=== PATIENT | male | born 1945 | race Caucasian/White ===

== ENCOUNTER 2018-06-17 15:17 | Inpatient (IN) ==
--- NOTE | 2018-06-17 15:40 | Emergency Department Note ---
Disposition Clinical Impression: Cellulitis Qualifiers: Site of cellulitis: extremity Site of cellulitis of extremity: upper extremity Laterality: left Qualified Code(s): L03.114 - Cellulitis of left upper limb Disposition: Admitted As Inpatient Condition: Fair Time of Disposition: 18:32 General Adult HPI - General Stated complaint: cellulitis in left arm Time Seen by Provider: 06/17/18 15:26 Nursing Notes Reviewed: Yes Vital Signs Reviewed: Yes - History of Present Illness HPI Narrative: Patient was discharged from the hospital about 10 days ago and did have an IV in his left arm and did scrape his left forearm several days ago and had some clear fluid coming from the area but since yesterday he has had swelling or redness and warmth to left forearm with a moderate amount of pain and he does have swelling to the forearm as well as to the hand. . Symptoms began gradually and are constant. No fevers or vomiting. No chest pain or shortness of breath. Social history: No smoking - Related Data Home Medications Medication Instructions Recorded Confirmed Albuterol Neb [Proventil Neb] 2.5 mg IH Q6HR 05/27/18 05/27/18 Allopurinol [Zyloprim 100 MG] 100 mg PO DAILY 05/27/18 05/27/18 Bumetanide [Bumex] 1 mg PO TID 05/27/18 05/27/18 Carvedilol [Coreg] 25 mg PO BID 05/27/18 05/27/18 Colchicine [Colcrys] 0.6 mg PO DAILY PRN 05/27/18 05/27/18 Docusate [Colace] 200 mg PO DAILY 05/27/18 05/27/18 Ferrous Sulfate [Iron] 325 mg PO DAILY 05/27/18 05/27/18 Pravastatin Sodium [Pravachol] 80 mg PO DAILY 05/27/18 05/27/18 metOLazone [Zaroxolyn] 5 mg PO DAILY 05/27/18 05/27/18 Previous Rx's Medication Instructions Recorded Aspirin 81 mg PO DAILY 30 Days #30 tab.chew 06/03/18 Spironolactone [Aldactone] 50 mg PO DAILY 30 Days #30 tablet 06/03/18 predniSONE [PredniSONE] See Taper PO DAILY 28 Days #70 06/03/18 tablet Allergies Allergy/AdvReac Type Severity Reaction Status Date / Time meperidine [From Demerol] Allergy Hives Verified 05/25/18 12:28 Review of Systems: Constitutional: No fever Vision: No blurred vision ENT: No rhinorrhea Respiratory: No cough Allergic: No allergies : No blood in urine GI: No blood in stool Hematologic: No bruising Dermatologic: No skin rash Musculoskeletal: + pain in the extremities Neuro: No numbness of the extremities Past Medical History - Past Medical History Medical history: Reports: atrial fibrillation, CHF, coronary artery disease, renal disease Surgical history: Reports: coronary bypass (CABG) Psychiatric history: Reports: no psych history - Social History Smoking Status: Former smoker Smokeless Tobacco Status: No Alcohol use: Reports: none Drug use: Reports: none Physical Exam CONSTITUTIONAL: Alert and oriented X3, well-nourished, well appearing, in no apparent distress HEAD: Normocephalic; atraumatic. EYES: PERRL, no scleral icterus. NOSE: The nose is normal in appearance without rhinorrhea RESP: Normal chest excursion with respiration; breath sounds clear and equal bilaterally; no wheezes, rhonchi, or rales CARD: Regular rhythm, without murmurs, rub or gallop ABD: Non-distended; non-tender, soft,without rigidity, rebound or guarding SKIN: Normal for age and race; warm and dry; no apparent lesions Extremities: Left forearm and hand does have moderate to severe edema and there is erythema and warmth over the forearm area but no fluctuant areas. No ecchym osis, no vesicles. Radial pulse is 2+ on the left. Does not have swelling of the right upper extremity. Course Vital Signs Temperature 98.9 F 06/17/18 16:42 Pulse Rate 76 06/17/18 16:42 Respiratory Rate 14 06/17/18 16:42 Blood Pressure 138/94 06/17/18 16:42 O2 Sat by Pulse Oximetry 97 06/17/18 16:42 Temperature 98.7 F 06/17/18 21:01 Pulse Rate 81 06/17/18 21:01 Respiratory Rate 16 06/17/18 21:01 Blood Pressure 131/75 06/17/18 21:01 O2 Sat by Pulse Oximetry 94 06/17/18 21:01 Oxygen Delivery Oxygen Delivery Room Air Medical Decision Making - MDM Narrative Medical decision making narrative: The patient is bright and alert and nontoxic in appearance. Labs including lactate level and blood cultures are ordered. IV vancomycin will be started. The patient will be admitted to the hospital. Likely cellulitis secondary to t he fact that he had a scrape on the arm or from his IV from last week. Vancomycin started to ensure coverage of MRSA infection 1540 I did review the patient's labs showing significant leukocytosis. The patient has a moderate amount of pain but does not have severe pain. Is not pain out of proportion. I do not suspect necrotizing soft tissue infection at this time. There is no ecchymosis or necrosis or crepitus or bullae. The hospitalist is paged. Patient is artery been started on vancomycin IV. 1637 I did speak with the hospitalist accepts the patient for admission. The patient does have erythema and edema and likely has an infection. I will order a Doppler study to ensure the patient does not have a deep vein thrombosis but especially with the patient's warmth and pain and elevated white blood cell count infection is most likely. I do not suspect a necrotizing soft tissue infection as this is not pain out of proportion, and there are no other signs as described above of necrotizing soft tissue infection. The patient is not confused. 1830 I did review the ECG showing afib with rate of [address] changes 1836 Patient's venous Doppler left upper extremity did come back negative for DVT - Medical Records Medical records reviewed: Yes I reviewed the patient's medical records. - Lab Data Lab results reviewed: Yes I reviewed the patient's lab results. Result diagrams: 06/17/18 15:56 06/17/18 15:56 Lab Results 06/17/18 06/17/18 06/17/18 Range/Units 15:56 15:56 15:56 WBC 21.3 H (4.3-11.1) K/mcL RBC 3.81 L (4.19-5.50) M/mcL Hgb 11.7 L (12.9-16.9) g/dL Hct 35.0 L (37.5-50.1) % MCV 91.9 (83.0-100.0) fL MCH 30.7 (28.0-33.3) pg MCHC 33.4 (31.6-35.5) g/dL RDW 16.4 H (11.5-14.5) % Plt Count 193 (140-400) K/mcL MPV 10.2 (9.4-12.4) fL Sodium 133 L (136-145) mEq/L Potassium 3.7 (3.5-5.1) mEq/L Chloride 102 (98-107) mEq/L Carbon Dioxide 23 (23-29) mEq/L BUN 80 H (8-23) mg/dL Creatinine 1.88 H (0.70-1.30) mg/dL Est GFR ( Amer) 43 L (> 60) Est GFR (Non-Af Amer) 35 L (> 60) BUN/Creatinine Ratio 43 H (6-26) Glucose 105 (70-105) mg/dL Calculated Osmolality 300 (280-300) Lactic Acid 1.2 (0.5-2.2) mmol/L Calcium 7.4 L (8.6-10.3) mg/dL
[2018-06-17 16:14] LABS: Hemoglobin 11.7 g/dL (12.9-16.9); Mean Corpuscular HGB Conc 33.4 g/dL (31.6-35.5); Mean Corpuscular Hemoglobin 30.7 pg (28.0-33.3); Mean Corpuscular Volume 91.9 fL (83.0-100.0); Mean Platelet Volume 10.2 fL (9.4-12.4); Platelet Count 193 K/mcL (140-400); Red Blood Count 3.81 M/mcL (4.19-5.50); Red Cell Distribution Width 16.4 % (11.5-14.5)
[2018-06-17 16:33] LABS: Calcium 7.4 mg/dL (8.6-10.3); Potassium 3.7 mEq/L (3.5-5.1)
[2018-06-17] MEDS ORDERED: *HR* HYDROcodone/Acet 5/325 mg TABLET PO PRN (18:37)
[2018-06-17] MEDS ORDERED: Naloxone 0.4 MG/ML INJ IVP PRN (18:37)
[2018-06-17] MEDS ORDERED: Ondansetron ODT 4 MG TAB.RAPDIS SL PRN (18:37)
[2018-06-17] MEDS ORDERED: Acetaminophen 325 MG TABLET PO PRN (18:37)
[2018-06-17] MEDS ORDERED: Colchicine 0.6 MG TABLET PO PRN (18:42)
--- NOTE | 2018-06-17 18:51 | Internal Med History&Physical ---
Date of Encounter: 06/17/18 Time of Encounter: 18:44 Internal Medicine - H&P: HPI Chief complaint: Left forearm cellulitis Admitted From: Emergency Dept Plans for Post Hospital Care: Home History of present illness: Mr. Dumont is a 72 year old male with past medical history of CABG 01/2018, chronic systolic CHF, chronic atrial fibrillation, CKD stage III, COPD , HTN, HLD and CAD who had diffuse b/l UE and LE edema with concerning for Nephrotic syndrome for which he was placed on Prednisone 10mg, was recently admitted here on 06/06/18 now he went to [facility] with worsening Left UE swelling , tenderness with erythema. He was sent to our hospital for further care. His WBC significantly elevated @ 21.3, he is afebrile. He was given abx at [facility], and pt states his LUE swelling little better now. He also c/o worsening swelling / edema in both LE too. Past Med Surg Social Fam HX - Past Medical History Medical history: atrial fibrillation, CHF, coronary artery disease, renal disease Additional medical history: gout Psychiatric history: no psych history - Past Surgical History Surgical History: coronary bypass (CABG) Additional surgical history: bowel resection - Social History Smoking Status: Former smoker Smokeless Tobacco Status: No Alcohol use: none Drug use: none - Family History Father Hx Family Cardiac Disorders: Yes ([place]) Grandfather Hx Family Cardiac Disorders: Yes Internal Medicine - H&P: Meds Albuterol Neb [Proventil Neb] 2.5 mg IH Q6HR 05/27/18 [History] Allopurinol [Zyloprim 100 MG] 100 mg PO DAILY 05/27/18 [History] Bumetanide [Bumex] 1 mg PO TID 05/27/18 [History] Carvedilol [Coreg] 25 mg PO BID 05/27/18 [History] Colchicine [Colcrys] 0.6 mg PO DAILY PRN 05/27/18 [History] Docusate [Colace] 200 mg PO DAILY 05/27/18 [History] Ferrous Sulfate [Iron] 325 mg PO DAILY 05/27/18 [History] Pravastatin Sodium [Pravachol] 80 mg PO DAILY 05/27/18 [History] metOLazone [Zaroxolyn] 5 mg PO DAILY 05/27/18 [History] Aspirin 81 mg PO DAILY 30 Days #30 tab.chew 06/03/18 [Rx] Spironolactone [Aldactone] 50 mg PO DAILY 30 Days #30 tablet 06/03/18 [Rx] predniSONE [PredniSONE] See Taper PO DAILY 28 Days #70 tablet 06/03/18 [Rx] Allergy/AdvReac Type Severity Reaction Status Date / Time meperidine [From Demerol] Allergy Hives Verified 05/25/18 12:28 All Systems PM: A 10-system review of systems was performed and is negative for pertinent findings except as documented above in the HPI. Review of systems: All the systems are reviewed everything is benign except the systems and symptoms I mentioned in the history of present illness - Constitutional Vitals: Temp Pulse Resp BP Pulse Ox 98.9 F 70 14 123/73 97 06/17/18 17:21 06/17/18 18:18 06/17/18 18:18 06/17/18 18:18 06/17/18 18:18 General appearance: Present: cooperative, A&O X 3, no acute distress, answers questions appropriately Exam: See below - Head Head exam: Present: atraumatic, normal inspection - Neck Neck exam general surgery: Present: supple - Respiratory Respiratory exam: Present: decreased breath sounds. Absent: rales, respiratory distress, rhonchi, wheezes - Cardiovascular Cardiovascular exam: Present: irregular rhythm, +S1, +S2. Absent: tachycardia - GI/Abdominal GI/Abdominal exam: Present: normal bowel sounds, soft. Absent: rebound, rigid, tenderness - Extremities Exam Extremities exam: Present: pedal edema (2+). Absent: calf tenderness, joint swelling, tenderness - Expanded Upper Extremities Exam Forearm wrist exam: Present: erythema, swelling, tenderness. Absent: abrasion, crepitus, laceration - Expanded Lower Extremities Exam Lower Leg exam: Present: swelling. Absent: erythema, tenderness - Back Exam Back exam: Absent: CVA tenderness (L), CVA tenderness (R) - Neurological Exam Neurological exam: Present: alert, oriented X3 - Psychiatric Psychiatric exam: Present: normal affect, normal mood - Skin Skin exam: Absent: rash Internal Med - H&P Results - Labs CBC & Chem 7: 06/17/18 15:56 06/17/18 15:56 Labs: Short CBC 06/17/18 Range/Units 15:56 WBC 21.3 H (4.3-11.1) K/mcL Hgb 11.7 L (12.9-16.9) g/dL Hct 35.0 L (37.5-50.1) % Plt Count 193 (140-400) K/mcL BMP 06/17/18 15:56 Sodium 133 L Potassium 3.7 Chloride 102 Carbon Dioxide 23 BUN 80 H Creatinine 1.88 H Glucose 105 Calcium 7.4 L - Assessment and plan (1) Left arm cellulitis Current Visit: Yes Status: Acute Assessment and plan: Admit the pt into Tele Need to r/o DVT ER just ordered venous doppler.. will f/u on it started on empirical abx Vancomycin for now cont close monitoring (2) Anasarca Current Visit: No Status: Acute Assessment and plan: He still has diffuse anasarca during last hospitalization there was a concern for nephrotic syndrome I did talk to Nephro Dr. Briones, who reviewed renal biopsy report - concerning for FSGS Nephrotic syndrome cont Prednisone 10mg for now IV Lasix 40mg BID + Metolazone + Aldactone appreciate nephrology recommendations (3) Chronic systolic (congestive) heart failure Current Visit: Yes Status: Acute Assessment and plan: Not in exacerbation resumed all home meds (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 Current Visit: Yes Status: Acute (5) Nephrotic syndrome Current Visit: No Status: Acute (6) Hyperlipidemia Current Visit: No Status: Acute Assessment and plan: Resumed home medications Qualifiers: Hyperlipidemia type: mixed hyperlipidemia Qualified Code(s): E78.2 - Mixed hyperlipidemia (7) Atrial fibrillation Current Visit: No Status: Chronic Assessment and plan: Rate controlled with Coreg Not on anti coag due to recent hemothorax Qualifiers: Atrial fibrillation type: chronic Qualified Code(s): I48.2 - Chronic atrial fibrillation (8) CAD (coronary artery disease) Current Visit: No Status: Chronic Assessment and plan: Resumed all home medications Qualifiers: Coronary Disease-Associated Artery/Lesion type: [place] artery [place] vs. transplanted heart: [place] heart Associated angina: without angina Qualified Code(s): I25.10 - Atherosclerotic heart disease of [place] coronary artery without angina pectoris (9) CKD (chronic kidney disease), stage III Current Visit: No Status: Chronic Assessment and plan: stable creatinine at baseline - Time Spent With Patient Total time spent is greater than 50% in coordination of care (as documented) at patient's floor/unit and/or counseling patient:
[2018-06-17] MEDS: Albuterol 2.5 MG/3 ML NEBULIZER IH SCH (21:50)
[2018-06-17] MEDS: Furosemide 40 MG/4 ML VIAL IVP SCH (22:00)
[2018-06-17] MEDS: *HR* Heparin 5,000 UNIT/ML VIAL SQ SCH (22:10)
[2018-06-18] MEDS: Albuterol 2.5 MG/3 ML NEBULIZER IH SCH ×4 (04:53→21:47)
[2018-06-18 07:12] LABS: Basophils % 0.1 %; Eosinophils # 0.1 K/mcL (0.0-0.6); Eosinophils % 0.9 %; Hematocrit 32.5 % (37.5-50.1); Hemoglobin 10.9 g/dL (12.9-16.9); Immature Granulocytes % 0.4 % (0-4); Lymphocytes % 7.5 %; Mean Corpuscular HGB Conc 33.5 g/dL (31.6-35.5); Mean Corpuscular Hemoglobin 30.3 pg (28.0-33.3); Mean Corpuscular Volume 90.3 fL (83.0-100.0); Monocytes # 0.6 K/mcL (0.0-1.3); Monocytes % 4.6 %; Platelet Count 180 K/mcL (140-400); Red Cell Distribution Width 16.3 % (11.5-14.5); Segmented Neutrophils % 86.5 %
[2018-06-18 07:31] LABS: Calcium 7.1 mg/dL (8.6-10.3); Magnesium 2.6 mg/dL (1.6-2.6); Potassium 3.5 mEq/L (3.5-5.1)
[2018-06-18] MEDS: Aspirin 81 MG TAB.CHEW PO SCH (08:49)
[2018-06-18] MEDS: Furosemide 40 MG/4 ML VIAL IVP SCH ×2 (08:49→16:17)
[2018-06-18] MEDS: *HR* Heparin 5,000 UNIT/ML VIAL SQ SCH ×3 (08:49→22:49)
[2018-06-18] MEDS: predniSONE 10 MG TABLET PO SCH (08:49)
[2018-06-18] MEDS: metOLazone 5 MG TABLET PO SCH (08:50)
--- NOTE | 2018-06-18 16:09 | Internal Med Progress Note ---
<Susie Rahmanty - Last Filed: 06/18/18 16:06> Hospitalist Progress Note - Encounter Date of Encounter: 06/18/18 Time of Encounter: 16:07 - Subjective Interval History: Patient reports that the erythema in his arm is improved, but the additional swelling is unchanged. - Exam Vitals: Temp Pulse Resp BP Pulse Ox 97.9 F 76 18 104/83 95 06/18/18 15:40 06/18/18 15:40 06/18/18 15:40 06/18/18 15:40 06/18/18 15:40 Exam: General: alert, NAD HEENT: normocephalic, atraumatic, PEERLA EOMI, neck supple, trachea midline, external ears normal, MMM Cardiac: RRR, no murmurs Respiratory: CTAB Abdomen: soft, nontender, BS present Extremities: anasarca - 2-3+ edema everywhere, left upper extremity with increased swelling 3+ swelling from fingers to distal 1/3 of arm - mild erythema of this location also Neuro: A&Ox3 Psych: normal affect - Assessment and Plan (1) Left arm cellulitis Current Visit: Yes Status: Acute Assessment and Plan: improving currently on pulse dosed vancomycin vancomycin trough ordered for 1700 today - pharmacy to dose vancomycin based on results (2) Anasarca Current Visit: No Status: Acute Assessment and Plan: 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 nephrology consulted, appreciate recommendations continue prednisone 10 mg daily, IV lasix 40 mg BID, metolazone 5 mg daily, and aldactone 50 mg daily (3) FSGS (focal segmental glomerulosclerosis) with nephrosis Current Visit: Yes Status: Acute (4) Nephrotic syndrome Current Visit: Yes Status: Acute (5) CKD (chronic kidney disease), stage III Current Visit: No Status: Chronic Assessment and Plan: chronic, stable (6) Chronic systolic (congestive) heart failure Current Visit: Yes Status: Acute Assessment and Plan: not in exacerbation continue home meds (7) CAD (coronary artery disease) Current Visit: No Status: Chronic Assessment and Plan: continue home meds (8) Atrial fibrillation Current Visit: No Status: Chronic Assessment and Plan: rate controlled not on anticoagulation due to recent hemothorax (9) Hyperlipidemia Current Visit: No Status: Acute Assessment and Plan: continue home meds DVT Prophylaxis: heparin SQ - Time Spent with Patient Total time spent is greater than 50% in coordination of care (as documented) at patient's floor/unit and/or counseling patient: Internal Medicine: Result - Labs CBC & Chem 7: 06/18/18 06:26 06/18/18 06:26 Labs: Short CBC 06/17/18 06/18/18 Range/Units 15:56 06:26 WBC 21.3 H 13.8 H (4.3-11.1) K/mcL Hgb 11.7 L 10.9 L (12.9-16.9) g/dL Hct 35.0 L 32.5 L (37.5-50.1) % Plt Count 193 180 (140-400) K/mcL Neutrophils # 12.0 H (1.6-8.9) K/mcL BMP 06/17/18 06/18/18 15:56 06:26 Sodium 133 L 137 Potassium 3.7 3.5 Chloride 102 103 Carbon Dioxide 23 28 BUN 80 H 77 H Creatinine 1.88 H 1.88 H Glucose 105 93 Calcium 7.4 L 7.1 L Consult Discharge Plan - Plan [facility]errals: [facility] [Primary Care Provider[facility] - <Joel Murrieta - Last Filed: 06/18/18 19:43> Hospitalist Progress Note - Encounter Date of Encounter: 06/18/18 - Exam Vitals: Temp Pulse Resp BP Pulse Ox 98.3 F 74 16 137/71 94 06/18/18 18:16 06/18/18 18:16 06/18/18 18:16 06/18/18 18:16 06/18/18 18:16 - Assessment and Plan (1) Atrial fibrillation Current Visit: No Status: Chronic (2) CAD (coronary artery disease) Current Visit: No Status: Chronic (3) Anasarca Current Visit: No Status: Acute (4) Hyperlipidemia Current Visit: No Status: Acute (5) Nephrotic syndrome Current Visit: Yes Status: Acute (6) CKD (chronic kidney disease), stage III Current Visit: No Status: Chronic (7) Left arm cellulitis Current Visit: Yes Status: Acute (8) Chronic systolic (congestive) heart failure Current Visit: Yes Status: Acute (9) FSGS (focal segmental glomerulosclerosis) with nephrosis Current Visit: Yes Status: Acute - Time Spent with Patient Total time spent is greater than 50% in coordination of care (as documented) at patient's floor/unit and/or counseling patient: Internal Medicine: Result - Labs CBC & Chem 7: 06/18/18 06:26 06/18/18 06:26 Labs: Short CBC 06/18/18 Range/Units 06:26 WBC 13.8 H (4.3-11.1) K/mcL Hgb 10.9 L (12.9-16.9) g/dL Hct 32.5 L (37.5-50.1) % Plt Count 180 (140-400) K/mcL Neutrophils # 12.0 H (1.6-8.9) K/mcL BMP 06/18/18 06:26 Sodium 137 Potassium 3.5 Chloride 103 Carbon Dioxide 28 BUN 77 H Creatinine 1.88 H Glucose 93 Calcium 7.1 L - Attending Attestation I examined this patient and my medical decision-making was reviewed with the Resident Physician on 06/18/18. I agree with the documented findings, disposition and treatment plan as described except to the extent set forth below. Mr Dumont is currently admitted for cellulitis of LUE. He remains moderate to high risk due to potential for worsening clinical status. Mr Dumont feels OK. His arm is still red but maybe a little better. Still with a lot of edema. No fever or chills. No CP or SOB currently. Exam alert Comfortable lying flat Mucus membranes dry Heart reg and not tachy No wheeze anasarca present Abd soft and non tender LUE with erythema throughout. I/P 1. Cellulitis LUE - on IV Vancomycin 2. Anasarca 3. Nephrotic syndrome Further diagnoses and plan as above. <Susie Rahman - Last Filed: 06/18/18 16:06> (7) CAD (coronary artery disease) Qualifiers: Coronary Disease-Associated Artery/Lesion type: [place] artery [place] vs. transplanted heart: [place] heart Associated angina: without angina Qualified Code(s): I25.10 - Atherosclerotic heart disease of [place] coronary artery without angina pectoris (8) Atrial fibrillation Qualifiers: Atrial fibrillation type: chronic Qualified Code(s): I48.2 - Chronic atrial fibrillation (9) Hyperlipidemia Qualifiers: Hyperlipidemia type: mixed hyperlipidemia Qualified Code(s): E78.2 - Mixed hyperlipidemia <Joel Murrieta - Last Filed: 06/18/18 19:43> (1) Atrial fibrillation Qualifiers: Atrial fibrillation type: chronic Qualified Code(s): I48.2 - Chronic atrial fibrillation (2) CAD (coronary artery disease) Qualifiers: Coronary Disease-Associated Artery/Lesion type: [place] artery [place] vs. transplanted heart: [place] heart Associated angina: without angina Qualified Code(s): I25.10 - Atherosclerotic heart disease of [place] coronary artery without angina pectoris (4) Hyperlipidemia Qualifiers: Hyperlipidemia type: mixed hyperlipidemia Qualified Code(s): E78.2 - Mixed hyperlipidemia
--- NOTE | 2018-06-18 17:05 | Nephrology Consult Note ---
Date of Encounter: 06/18/18 Time of Encounter: 15:00 Assessment and Plan (1) Chronic systolic (congestive) heart failure Current Visit: Yes Status: Acute Strict I/Os Fluid restriction Diuretics as discussed below (2) FSGS (focal segmental glomerulosclerosis) with nephrosis Current Visit: Yes Status: Acute Scr imroved since last hospital stay at 1.88, GFR 35 Still not clear etiology of secondary FSGS ie malignancy, perhaps more imaging like PET scan to be done. Discussed with Dr Murrieta Continue low dose prednisone for now Continue iv lasix, metalozone and aldactone for now Will recheck urine for proteinuria (3) Left arm cellulitis Current Visit: Yes Status: Acute Caeful use of vanco, a nephrotoxins advised if this pt Vanco by levels only (4) Anasarca Current Visit: No Status: Acute (5) Lung nodule Current Visit: No Status: Chronic (6) CKD (chronic kidney disease), stage III Current Visit: No Status: Chronic History of Present Illness - Reason for Consult Consult date: 06/18/18 Acute Kidney Injury, Chronic Kidney Disease, glomerulonephritis Requesting physician: Donald Ball - History of Present Illness 72 y o male with PMH of stage 3 CKD, HTN, CAD s/p CABG 01/2018 with subsequent development of anasarca initially treated as CHF exacerbation with multiple diuretics eventually requiring hospital stay with 16gram proteinuria noted with renal biopsy showing FSGS likely secondary to unknown malignancy. During that stay, RUL lung mass noted with biopsy showing benign bronchial mucosa with reactive cells, followup with pulm pending. [facility] and generalized edema though improved from previous still very significant in both upper and lower extremities. Pt seen and examined feeling better and responding to iv lasix with more UOP overnight per pt. Pt remains on prednsione taper from last hospital stay Past Med Surg Social Fam HX - Past Medical History Medical history: atrial fibrillation, CHF, coronary artery disease, renal disease Additional medical history: gout Psychiatric history: no psych history - Past Surgical History Surgical History: coronary bypass (CABG), herniorrhaphy Additional surgical history: bowel resection - Social History Smoking Status: Former smoker Smokeless Tobacco Status: No Alcohol use: none Drug use: none - Family History Father Hx Family Cardiac Disorders: Yes ([place]) Grandfather Hx Family Cardiac Disorders: Yes Medications and Allergies Albuterol Neb [Proventil Neb] 2.5 mg IH Q6HR 05/27/18 [History] Allopurinol [Zyloprim 100 MG] 100 mg PO DAILY 05/27/18 [History] Bumetanide [Bumex] 1 mg PO TID 05/27/18 [History] Carvedilol [Coreg] 25 mg PO BID 05/27/18 [History] Colchicine [Colcrys] 0.6 mg PO DAILY PRN 05/27/18 [History] Docusate [Colace] 200 mg PO DAILY 05/27/18 [History] Ferrous Sulfate [Iron] 325 mg PO DAILY 05/27/18 [History] Pravastatin Sodium [Pravachol] 80 mg PO HS 05/27/18 [History] metOLazone [Zaroxolyn] 5 mg PO DAILY 05/27/18 [History] Aspirin 81 mg PO DAILY 30 Days #30 tab.chew 06/03/18 [Rx] Spironolactone [Aldactone] 50 mg PO DAILY 30 Days #30 tablet 06/03/18 [Rx] predniSONE [PredniSONE] See Taper PO DAILY 28 Days #70 tablet 06/03/18 [Rx] Digoxin [Lanoxin] 0.125 mg PO QOD 06/17/18 [History] GlipiZIDE [Glipizide Xl] 2.5 mg PO DAILY 06/17/18 [History] Allergy/AdvReac Type Severity Reaction Status Date / Time meperidine [From Demerol] Allergy Hives Verified 05/25/18 12:28 Exam - Vital Signs Vital signs: Initial Vital Signs Temp Pulse Resp BP Pulse Ox 98.9 F 76 14 138/94 97 06/17/18 16:42 06/17/18 16:42 06/17/18 16:42 06/17/18 16:42 06/17/18 16:42 Vital Signs - Last 8 Hours Temp Pulse Resp BP Pulse Ox 06/18/18 15:40 97.9 F 76 18 104/83 95 06/18/18 15:38 19 96 06/18/18 11:20 98.3 F 65 19 107/73 96 06/18/18 09:45 16 92 Intake and Output 06/18/18 06/18/18 06/18/18 07:59 15:59 23:59 Intake Total 660 / 660 Output Total 1050 / 1050 Balance -390 / -390 Intake: Oral 660 / 660 Output: Urine 1050 / 1050 Other: Meal Lunch Percent of Meal Consumed 95% Results - Lab Results 06/18/18 06:26 06/18/18 06:26 Most recent lab results Calcium 7.1 mg/dL (8.6-10.3) L 06/18/18 06:26 Magnesium 2.6 mg/dL (1.6-2.6) 06/18/18 06:26 Consult Discharge Plan - Plan [facility]errals: [facility] [Primary Care Provider] -
[2018-06-18 20:19] LABS: Bilirubin,Urine Negative (Negative); Blood,Urine Large (Negative); Clarity,Urine Clear (Clear); Color,Urine Yellow (Yellow); Glucose,Urine (UA) 250 mg/dL (Normal); Ketones,Urine Negative (Negative); Leukocyte Esterase,Urine Negative (Negative); Nitrite,Urine Negative (Negative); Protein,Urine >=300 mg/dL (Neg-Trace); Specific Gravity,Urine 1.009 (1.010-1.025); Urobilinogen,Urine Normal (Normal)
[2018-06-18 20:21] LABS: Bacteria,Urine None Seen per hpf (None-Few); Hyaline Casts,Urine None Seen per lpf (None-Few); RBC,Urine 50-100 per hpf (0-3); Squamous Epithelial Cell,Urine Many per lpf (None-Few)
[2018-06-19] MEDS: Albuterol 2.5 MG/3 ML NEBULIZER IH SCH ×4 (03:33→22:56)
[2018-06-19 07:22] LABS: Basophils % 0.2 %; Eosinophils # 0.3 K/mcL (0.0-0.6); Hematocrit 34.4 % (37.5-50.1); Hemoglobin 11.5 g/dL (12.9-16.9); Immature Granulocytes % 0.5 % (0-4); Lymphocytes # 1.4 K/mcL (0.6-4.6); Lymphocytes % 11.1 %; Mean Corpuscular HGB Conc 33.4 g/dL (31.6-35.5); Mean Corpuscular Hemoglobin 30.6 pg (28.0-33.3); Mean Corpuscular Volume 91.5 fL (83.0-100.0); Mean Platelet Volume 10.2 fL (9.4-12.4); Monocytes # 0.7 K/mcL (0.0-1.3); Monocytes % 5.5 %; Neutrophils # 10.3 K/mcL (1.6-8.9); Platelet Count 211 K/mcL (140-400); Red Blood Count 3.76 M/mcL (4.19-5.50); Red Cell Distribution Width 16.3 % (11.5-14.5); Segmented Neutrophils % 80.7 %
[2018-06-19 07:45] LABS: Calcium 7.4 mg/dL (8.6-10.3); Potassium 3.4 mEq/L (3.5-5.1)
[2018-06-19] MEDS: *HR* Heparin 5,000 UNIT/ML VIAL SQ SCH ×3 (08:42→23:14)
[2018-06-19] MEDS: Furosemide 40 MG/4 ML VIAL IVP SCH ×2 (08:43→17:12)
[2018-06-19] MEDS: Aspirin 81 MG TAB.CHEW PO SCH (08:43)
[2018-06-19] MEDS: predniSONE 10 MG TABLET PO SCH (08:44)
[2018-06-19] MEDS: metOLazone 5 MG TABLET PO SCH (08:44)
[2018-06-19] MEDS ORDERED: Calcium Gluconate 2,000 MG in 0.9 % Sodium Chloride 100 ML IVPB ONE (13:04)
--- NOTE | 2018-06-19 13:15 | Internal Med Progress Note ---
<Susie Rahman Katia - Last Filed: 06/19/18 13:13> Hospitalist Progress Note - Encounter Date of Encounter: 06/19/18 Time of Encounter: 13:13 - Subjective Interval History: Patient reports that the erythema and additional swelling in his arm are improved, as is his generalized swelling. - Exam Vitals: Temp Pulse Resp BP Pulse Ox 97.9 F 80 17 127/86 95 06/19/18 12:15 06/19/18 12:15 06/19/18 12:15 06/19/18 12:15 06/19/18 12:15 Exam: General: alert, NAD HEENT: normocephalic, atraumatic, PEERLA EOMI, neck supple, trachea midline, external ears normal, MMM Cardiac: RRR, no murmurs Respiratory: CTAB Abdomen: soft, nontender, BS present Extremities: anasarca - 2+ edema everywhere, left upper extremity with increased swelling 3+ swelling from fingers to distal 1/3 of arm - mild erythema of this location also - improved from yesterday Neuro: A&Ox3 Psych: normal affect - Assessment and Plan (1) Left arm cellulitis Current Visit: Yes Status: Acute Assessment and Plan: improving on pulse dosed vancomycin continue with timed vancomycin trough at 1700 - pharmacy to dose vancomycin based on results (2) Anasarca Current Visit: No Status: Acute Assessment and Plan: 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 nephrology consulted, appreciate recommendations continue prednisone 10 mg daily, IV lasix 40 mg BID, metolazone 5 mg daily, and aldactone 50 mg daily (3) FSGS (focal segmental glomerulosclerosis) with nephrosis Current Visit: Yes Status: Acute Assessment and Plan: renal function slowly improving Cr 1.74 GFR 39 needs additional work-up to determine etiology 24 hour urine protein ordered possible PET scan - has known lung mass - Dr. Rodriguez biopsed this last hospitalization (4) Nephrotic syndrome Current Visit: Yes Status: Acute Assessment and Plan: 24 hr urine protein ordered (5) CKD (chronic kidney disease), stage III Current Visit: No Status: Chronic Assessment and Plan: chronic, stable (6) Chronic systolic (congestive) heart failure Current Visit: Yes Status: Acute Assessment and Plan: not in exacerbation continue home medications (7) CAD (coronary artery disease) Current Visit: No Status: Chronic Assessment and Plan: continue home meds (8) Atrial fibrillation Current Visit: No Status: Chronic Assessment and Plan: rate controlled no anticoagulation due to recent hemothorax (9) Hyperlipidemia Current Visit: No Status: Acute Assessment and Plan: continue home meds DVT Prophylaxis: heparin SQ - Time Spent with Patient Total time spent is greater than 50% in coordination of care (as documented) at patient's floor/unit and/or counseling patient: Internal Medicine: Result - Labs CBC & Chem 7: 06/19/18 06:48 06/19/18 06:48 Labs: Short CBC 06/19/18 Range/Units 06:48 WBC 12.8 H (4.3-11.1) K/mcL Hgb 11.5 L (12.9-16.9) g/dL Hct 34.4 L (37.5-50.1) % Plt Count 211 (140-400) K/mcL Neutrophils # 10.3 H (1.6-8.9) K/mcL BMP 06/19/18 06:48 Sodium 139 Potassium 3.4 L Chloride 103 Carbon Dioxide 27 BUN 68 H Creatinine 1.74 H Glucose 99 Calcium 7.4 L Urine 06/18/18 Range/Units 20:07 Urine Color Yellow (Yellow) Urine Clarity Clear (Clear) Urine pH 6.0 (5.0-8.0) pH Units Ur Specific [place] 1.009 L (1.010-1.025) Urine Protein >=300 H (Neg-Trace) mg/dL Urine Glucose (UA) 250 H (Normal) mg/dL Consult Discharge Plan - Plan [facility]errals: [facility] [Primary Care Provider[facility] - <Joel Murrieta - Last Filed: 06/19/18 18:27> Hospitalist Progress Note - Encounter Date of Encounter: 06/19/18 - Exam Vitals: Temp Pulse Resp BP Pulse Ox 97.6 F 94 18 127/72 100 06/19/18 15:58 06/19/18 15:58 06/19/18 15:58 06/19/18 15:58 06/19/18 15:58 - Assessment and Plan (1) Atrial fibrillation Current Visit: No Status: Chronic (2) CAD (coronary artery disease) Current Visit: No Status: Chronic (3) Anasarca Current Visit: No Status: Acute (4) Hyperlipidemia Current Visit: No Status: Acute (5) Nephrotic syndrome Current Visit: Yes Status: Acute (6) CKD (chronic kidney disease), stage III Current Visit: No Status: Chronic (7) Left arm cellulitis Current Visit: Yes Status: Acute (8) Chronic systolic (congestive) heart failure Current Visit: Yes Status: Acute (9) FSGS (focal segmental glomerulosclerosis) with nephrosis Current Visit: Yes Status: Acute - Time Spent with Patient Total time spent is greater than 50% in coordination of care (as documented) at patient's floor/unit and/or counseling patient: Internal Medicine: Result - Labs CBC & Chem 7: 06/19/18 06:48 06/19/18 06:48 Labs: Short CBC 06/19/18 Range/Units 06:48 WBC 12.8 H (4.3-11.1) K/mcL Hgb 11.5 L (12.9-16.9) g/dL Hct 34.4 L (37.5-50.1) % Plt Count 211 (140-400) K/mcL Neutrophils # 10.3 H (1.6-8.9) K/mcL BMP 06/19/18 06:48 Sodium 139 Potassium 3.4 L Chloride 103 Carbon Dioxide 27 BUN 68 H Creatinine 1.74 H Glucose 99 Calcium 7.4 L Urine 06/18/18 Range/Units 20:07 Urine Color Yellow (Yellow) Urine Clarity Clear (Clear) Urine pH 6.0 (5.0-8.0) pH Units Ur Specific [place] 1.009 L (1.010-1.025) Urine Protein >=300 H (Neg-Trace) mg/dL Urine Glucose (UA) 250 H (Normal) mg/dL - Attending Attestation I examined this patient and my medical decision-making was reviewed with the Resident Physician on 06/19/18. I agree with the documented findings, disposition and treatment plan as described except to the extent set forth below. Mr Dumont is currently admitted for LUE cellulitis. He remains moderate to high risk due to potential for worsening clinical status. Mr Dumont is resting. His arm is somewhat better today. No fever or chills. Edema seems to be a little better today. Exam alert Comfortable Mucus membranes dry Heart reg No wheeze Erythema less today. Edema less. I/P 1. Cellulitis LUE slowly improving 2. Anasarca Further diagnoses and plan as above. <Susie Rahman - Last Filed: 06/19/18 13:13> (7) CAD (coronary artery disease) Qualifiers: Coronary Disease-Associated Artery/Lesion type: crow artery [place] vs. tra nsplanted heart: crow heart Associated angina: without angina Qualified Code(s): I25.10 - Atherosclerotic heart disease of crow coronary artery without angina pectoris (8) Atrial fibrillation Qualifiers: Atrial fibrillation type: chronic Qualified Code(s): I48.2 - Chronic atrial fibrillation (9) Hyperlipidemia Qualifiers: Hyperlipidemia type: mixed hyperlipidemia Qualified Code(s): E78.2 - Mixed hyperlipidemia <Joel Murrieta - Last Filed: 06/19/18 18:27> (1) Atrial fibrillation Qualifiers: Atrial fibrillation type: chronic Qualified Code(s): I48.2 - Chronic atrial fibrillation (2) CAD (coronary artery disease) Qualifiers: Coronary Disease-Associated Artery/Lesion type: crow artery [place] vs. transplanted heart: crow heart Associated angina: without angina Qualified Code(s): I25.10 - Atherosclerotic heart disease of crow coronary artery without angina pectoris (4) Hyperlipidemia Qualifiers: Hyperlipidemia type: mixed hyperlipidemia Qualified Code(s): E78.2 - Mixed hyperlipidemia
[2018-06-20] MEDS: Albuterol 2.5 MG/3 ML NEBULIZER IH SCH ×4 (04:11→22:14)
[2018-06-20 04:12] LABS: Basophils % 0.2 %; Eosinophils # 0.2 K/mcL (0.0-0.6); Eosinophils % 2.5 %; Hematocrit 29.9 % (37.5-50.1); Immature Granulocytes % 0.3 % (0-4); Lymphocytes # 1.2 K/mcL (0.6-4.6); Lymphocytes % 12.5 %; Mean Corpuscular HGB Conc 33.4 g/dL (31.6-35.5); Mean Corpuscular Hemoglobin 30.3 pg (28.0-33.3); Mean Corpuscular Volume 90.6 fL (83.0-100.0); Monocytes # 0.5 K/mcL (0.0-1.3); Monocytes % 5.6 %; Neutrophils # 7.6 K/mcL (1.6-8.9); Platelet Count 176 K/mcL (140-400); Red Cell Distribution Width 15.9 % (11.5-14.5); Segmented Neutrophils % 78.9 %
[2018-06-20 04:15] LABS: VBG Ionized Calcium 1.12 mmol/L (1.15-1.35)
[2018-06-20 04:32] LABS: Calcium 7.3 mg/dL (8.6-10.3); Potassium 3.5 mEq/L (3.5-5.1)
[2018-06-20] MEDS: predniSONE 10 MG TABLET PO SCH (08:20)
[2018-06-20] MEDS: Aspirin 81 MG TAB.CHEW PO SCH (08:20)
[2018-06-20] MEDS: metOLazone 5 MG TABLET PO SCH (08:20)
[2018-06-20] MEDS: *HR* Heparin 5,000 UNIT/ML VIAL SQ SCH ×2 (08:21→16:43)
[2018-06-20] MEDS: Furosemide 40 MG/4 ML VIAL IVP SCH ×2 (08:21→16:43)
[2018-06-20] MEDS ORDERED: Calcium Gluconate 2,000 MG in 0.9 % Sodium Chloride 100 ML IVPB ONE (08:42)
--- NOTE | 2018-06-20 10:21 | Internal Med Progress Note ---
<Kosta Maria - Last Filed: 06/20/18 14:43> Hospitalist Progress Note - Encounter Date of Encounter: 06/20/18 Time of Encounter: 10:16 - Subjective Interval History: Patient states he is doing well this morning, that his symptoms of cellulitis have improved. He informed me that he was supposed to follow up with Dr. Melgoza this week, I told the patient that I talked to Dr. Melgoza who recommended no urgent intervention while admitted and to follow up outpatient. I also informed the patient we would wait to see what further recommendations nephrology would have. Patient stated he understood and agreed. - Exam Vitals: Temp Pulse Resp BP Pulse Ox 97.9 F 65 16 136/76 99 06/20/18 07:19 06/20/18 07:19 06/20/18 10:12 06/20/18 07:19 06/20/18 10:12 Exam: General: alert, NAD HEENT: normocephalic, atraumatic, PEERLA EOMI, neck supple, trachea midline, external ears normal, MMM Cardiac: irregularly irregular rhythm, no murmur or gallop Respiratory: CTAB Abdomen: soft, nontender, BS present Extremities: anasarca - 2+ edema everywhere, left upper extremity with increased swelling 3+ swelling from fingers to distal 1/3 of arm - volar surface of left arm erythematous Neuro: A&Ox3 Psych: normal affect - Assessment and Plan (1) Left arm cellulitis Current Visit: Yes Status: Acute Assessment and Plan: Presented for LUE cellulitis improving on pulse dosed vancomycin continue with timed vancomycin trough at 1700 - pharmacy to dose vancomycin based on results Will de-escalate based on cultures (2) Anasarca Current Visit: No Status: Acute Assessment and Plan: 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 nephrology consulted, appreciate recommendations continue prednisone 10 mg daily, IV lasix 40 mg BID, metolazone 5 mg daily, and aldactone 50 mg daily No further work up anticipated at this time (3) Atrial fibrillation Current Visit: No Status: Chronic Assessment and Plan: Rate controlled with Coreg Not on anti coag due to recent hemothorax (4) CAD (coronary artery disease) Current Visit: No Status: Chronic Assessment and Plan: Resumed all home medications (5) Hyperlipidemia Current Visit: No Status: Chronic Assessment and Plan: Resumed home medications (6) Nephrotic syndrome Current Visit: No Status: Chronic (7) CKD (chronic kidney disease), stage III Current Visit: No Status: Chronic Assessment and Plan: stable creatinine at baseline (8) Chronic systolic (congestive) heart failure Current Visit: No Status: Chronic Assessment and Plan: Not in exacerbation resumed all home meds (9) Lung nodule Current Visit: No Status: Chronic Assessment and Plan: Known lung nodule, followed by Pulmonology No immediate intervention planned Will follow with Pulmonology outpatient (10) FSGS (focal segmental glomerulosclerosis) with nephrosis Current Visit: Yes Status: Chronic DVT Prophylaxis: heparin SQ - Time Spent with Patient Total time spent is greater than 50% in coordination of care (as documented) at patient's floor/unit and/or counseling patient: Internal Medicine: Result - Labs CBC & Chem 7: 06/20/18 03:40 06/20/18 03:40 Labs: Short CBC 06/20/18 Range/Units 03:40 WBC 9.7 (4.3-11.1) K/mcL Hgb 10.0 L D (12.9-16.9) g/dL Hct 29.9 L (37.5-50.1) % Plt Count 176 (140-400) K/mcL Neutrophils # 7.6 (1.6-8.9) K/mcL BMP 06/20/18 03:40 Sodium 138 Potassium 3.5 Chloride 104 Carbon Dioxide 27 BUN 66 H Creatinine 1.83 H Glucose 110 H Calcium 7.3 L Consult Discharge Plan - Plan [facility]errals: [facility] [Primary Care Provider] - <Joel Murrieta - Last Filed: 06/20/18 18:04> Hospitalist Progress Note - Encounter Date of Encounter: 06/20/18 - Exam Vitals: Temp Pulse Resp BP Pulse Ox 98.2 F 70 16 146/82 97 06/20/18 15:29 06/20/18 15:29 06/20/18 16:31 06/20/18 15:29 06/20/18 16:31 - Assessment and Plan (1) Atrial fibrillation Current Visit: No Status: Chronic (2) Lung nodule Current Visit: No Status: Chronic (3) CAD (coronary artery disease) Current Visit: No Status: Chronic (4) Anasarca Current Visit: No Status: Acute (5) Hyperlipidemia Current Visit: No Status: Chronic (6) Nephrotic syndrome Current Visit: No Status: Chronic (7) CKD (chronic kidney disease), stage III Current Visit: No Status: Chronic (8) Left arm cellulitis Current Visit: Yes Status: Acute (9) Chronic systolic (congestive) heart failure Current Visit: No Status: Chronic (10) FSGS (focal segmental glomerulosclerosis) with nephrosis Current Visit: Yes Status: Chronic - Time Spent with Patient Total time spent is greater than 50% in coordination of care (as documented) at patient's floor/unit and/or counseling patient: Internal Medicine: Result - Labs CBC & Chem 7: 06/20/18 03:40 06/20/18 03:40 Labs: Short CBC 06/20/18 Range/Units 03:40 WBC 9.7 (4.3-11.1) K/mcL Hgb 10.0 L D (12.9-16.9) g/dL Hct 29.9 L (37.5-50.1) % Plt Count 176 (140-400) K/mcL Neutrophils # 7.6 (1.6-8.9) K/mcL BMP 06/20/18 03:40 Sodium 138 Potassium 3.5 Chloride 104 Carbon Dioxide 27 BUN 66 H Creatinine 1.83 H Glucose 110 H Calcium 7.3 L - Attending Attestation I examined this patient and my medical decision-making was reviewed with the Resident Physician on 06/20/18. I agree with the documented findings, disposition and treatment plan as described except to the extent set forth below. Mr Dumont is currently admitted for cellulitis of his arm and anasarca. He remains moderate to high risk due to potential for worsening clinical and respiratory status. Mr Dumont feels OK. Swelling is improving. No fever or chills. Still with erythema of his arm. No GI symptoms. Exam alert Comfortable Mucus membranes dry Heart not tachy No wheeze Abd soft Anasarca present Less erythema of L arm I/P 1. Cellulitis L arm 2. Anasarca 3. FSGS Further diagnoses and plan as above. <CrowKosta C - Last Filed: 06/20/18 14:43> (3) Atrial fibrillation Qualifiers: Atrial fibrillation type: chronic Qualified Code(s): I48.2 - Chronic atrial fibrillation (4) CAD (coronary artery disease) Qualifiers: Coronary Disease-Associated Artery/Lesion type: three affiliated artery [place] vs. transplanted heart: three affiliated heart Associated angina: without angina Qualified Code(s): I25.10 - Atherosclerotic heart disease of three affiliated coronary artery without angina pectoris (5) Hyperlipidemia Qualifiers: Hyperlipidemia type: mixed hyperlipidemia Qualified Code(s): E78.2 - Mixed hyperlipidemia <Joel Murrieta A - Last Filed: 06/20/18 18:04> (1) Atrial fibrillation Qualifiers: Atrial fibrillation type: chronic Qualified Code(s): I48.2 - Chronic atrial fibrillation (3) CAD (coronary artery disease) Qualifiers: Coronary Disease-Associated Artery/Lesion type: three affiliated artery [place] vs. transplanted heart: three affiliated heart Associated angina: without angina Qualified Code(s): I25.10 - Atherosclerotic heart disease of three affiliated coronary artery without angina pectoris (5) Hyperlipidemia Qualifiers: Hyperlipidemia type: mixed hyperlipidemia Qualified Code(s): E78.2 - Mixed hyperlipidemia
--- NOTE | 2018-06-20 12:33 | Nephrology Progress Note ---
Date of Encounter: 06/20/18 Time of Encounter: 12:31 - Assessment and Plan (1) Lung nodule Current Visit: No Status: Chronic Per pulm. They suggest f/u outpatient. (2) Anasarca Current Visit: No Status: Acute Continue diuretics and fluid restriction. (3) CKD (chronic kidney disease), stage III Current Visit: No Status: Chronic Baseline. (4) Left arm cellulitis Current Visit: Yes Status: Acute Caeful use of vanco, continue to avoid nephrotoxins as possible. Vanco by levels only (5) Chronic systolic (congestive) heart failure Current Visit: Yes Status: Acute Strict I/Os Fluid restriction Diuretics as discussed below (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 Current Visit: Yes Status: Acute Scr imroved since last hospital stay at 1.83 and GFR is 36 Still not clear etiology of secondary FSGS ie malignancy, perhaps more imaging like PET scan to be done. Continue low dose prednisone for now. Continue IV lasix, metalozone and aldactone for now 24 hour urine in progress. Subjective Principal diagnosis: cellulitis in left arm Interval history: Pt seen and examined, doing well. at bedside. No acute events overnight. Denies nausea, vomiting, diarrhea. Denies shortness of breath or chest pain. Admits to feeling fatigued. Objective - Vital Signs Vital signs: Vital Signs Temp Pulse Resp BP Pulse Ox 06/20/18 12:05 97.9 F 68 16 116/78 96 06/20/18 10:12 16 99 06/20/18 07:19 97.9 F 65 15 136/76 97 06/20/18 04:13 18 98 06/20/18 03:19 97.6 F 58 17 130/78 97 06/19/18 23:05 97.4 F L 64 16 120/76 100 06/19/18 22:57 16 97 06/19/18 19:27 98 F 76 16 132/78 97 06/19/18 15:58 97.6 F 94 18 127/72 100 06/19/18 15:47 17 95 Intake and Output 06/19/18 06/20/18 06/20/18 23:59 07:59 15:59 Intake Total 730 / 730 600 / 600 Output Total 850 / 850 600 / 600 Balance -120 / -120 -600 / -600 600 / 600 Intake: IV Fluids 370 / 370 120 / 120 Calcium Gluconate 2,000 MG In 0 120 / 120 120 / 120 .9 % Sodium Chloride 100 ML @ 220 mls/hr IVPB ONCE ONE Rx#: [id number] Vancocin 1,250 MG In 0.9 % 250 / 250 Sodium Chloride 250 ML @ 166. 667 mls/hr IVPB Q24H [facility] Rx#: [id number] Oral 360 / 360 480 / 480 Output: Urine 850 / 850 600 / 600 Other: Meal Dinner Breakfast Percent of Meal Consumed 90% 100% Weight 77 kg Patient Weight 06/20/18 23:59 Weight 77 kg - General Appearance General appearance: Present: well-developed, well-nourished EENT: Present: ATNC, hearing intact, vision intact Neck: Present: supple Respiratory: Present: clear Cardiology: Present: edema (+2 pitting edema noted to bilat upper extremities, +3 noted to bilat lower extremities. ), normal S1, normal S2 Gastrointestinal: Present: normoactive bowel sounds, no tenderness, no guarding Integumentary: Present: erythema (improved to LUE) Neurologic: Present: alert and oriented x3 Psychiatric: Present: mood/affect appropriate, cooperative - Lab 06/20/18 03:40 06/20/18 03:40 Most recent lab results Calcium 7.3 mg/dL (8.6-10.3) L 06/20/18 03:40 Magnesium 2.6 mg/dL (1.6-2.6) 06/18/18 06:26 Consult Discharge Plan - Plan Referrals: [facility] [Primary Care Provider] -
--- NOTE | 2018-06-20 13:52 | Electrocardiograph Report ---
[place] [id number] Test Date: 2018-06-17 Pat Name: Clement Dumont Department: EXAM6 Room: 3B Gender: M Manager Radio: : 1945 Requested By: Britton Nicholas Order Number: [id number] Reading MD: Ortiz Card Measurements Intervals [place] Rate: 69 P: GA: QRS: 40 QRSD: 119 T: -45 QT: 410 QTc: 410 Interpretive Statements Atrial fibrillation Ventricular premature complex Nonspecific intraventricular conduction delay Borderline low voltage, extremity leads Baseline wander in lead(s) V2 Electronically Signed On 06-20-2018 13:51:38 EST by Ortiz Card
[2018-06-21] MEDS: *HR* Heparin 5,000 UNIT/ML VIAL SQ SCH ×2 (00:30→08:12)
[2018-06-21] MEDS: Albuterol 2.5 MG/3 ML NEBULIZER IH SCH ×2 (03:33→10:18)
[2018-06-21 05:39] LABS: Basophils % 0.2 %; Eosinophils # 0.4 K/mcL (0.0-0.6); Eosinophils % 4.2 %; Hematocrit 23.9 % (37.5-50.1); Immature Granulocytes % 0.7 % (0-4); Lymphocytes # 1.5 K/mcL (0.6-4.6); Lymphocytes % 15.8 %; Mean Corpuscular HGB Conc 33.5 g/dL (31.6-35.5); Mean Corpuscular Hemoglobin 30.5 pg (28.0-33.3); Mean Corpuscular Volume 91.2 fL (83.0-100.0); Mean Platelet Volume 10.2 fL (9.4-12.4); Monocytes # 0.6 K/mcL (0.0-1.3); Monocytes % 6.7 %; Neutrophils # 6.8 K/mcL (1.6-8.9); Platelet Count 207 K/mcL (140-400); Red Blood Count 2.62 M/mcL (4.19-5.50); Red Cell Distribution Width 15.9 % (11.5-14.5); Segmented Neutrophils % 72.4 %
[2018-06-21 05:58] LABS: Calcium 7.4 mg/dL (8.6-10.3); Potassium 3.1 mEq/L (3.5-5.1)
[2018-06-21] MEDS: Aspirin 81 MG TAB.CHEW PO SCH (08:11)
[2018-06-21] MEDS: metOLazone 5 MG TABLET PO SCH (08:11)
[2018-06-21] MEDS: predniSONE 10 MG TABLET PO SCH (08:12)
[2018-06-21] MEDS: Furosemide 40 MG/4 ML VIAL IVP SCH (08:12)
--- NOTE | 2018-06-21 09:19 | Discharge Summary ---
<MariaKosta Pearl - Last Filed: 06/21/18 11:44> - NOTES TO OUTPATIENT PROVIDER Notes to Outpatient Provider: Mr Dumont was admitted and treated for cellulitis of his left upper extremity. He responded well to antibiotics and will be discharged with a continued course of outpatient antibiotics. Nephrology also saw the patient while admitted. No new recommendations from them. They will follow outpatient along with Pulmonology. Orders not resulted at time of discharge: Pending orders 06/17/18 15:56 Culture,Blood [BC] Stat 06/18/18 20:11 Urine Microalbumin 24 Hr [UCHEM] Routine Urine Protein Creat Ratio 24Hr [UCHEM] Routine 06/21/18 04:24 Ionized Calcium,venous blood Routine 06/21/18 12:00 Hemoglobin and Hematocrit [HEME] Timed Potassium Timed 06/22/18 04:00 BMP [Basic Metabolic Panel] AM 0400 Complete Blood Count [HEME] AM 0400 Ionized Calcium,venous blood AM 0400 06/22/18 17:00 Vancomycin,Trough Timed 06/23/18 04:00 BMP [Basic Metabolic Panel] AM 0400 Complete Blood Count [HEME] AM 0400 Ionized Calcium,venous blood AM 0400 06/24/18 04:00 BMP [Basic Metabolic Panel] AM 0400 Complete Blood Count [HEME] AM 0400 Ionized Calcium,venous blood AM 0400 06/25/18 04:00 Ionized Calcium,venous blood AM 0400 Date of Encounter: 06/21/18 Time of Encounter: 09:17 - Discharge Diagnosis (1) Left arm cellulitis Priority: Primary Status: Acute Assessment and Plan: Presented for LUE cellulitis improving on pulse dosed vancomycin, with timed vancomycin trough at 1700 - pharmacy to dose vancomycin based on results Stable for discharge based on clinical response, labs, vitals Will discharge on continued antibiotic course doxycycline x6 days for 10 days total antibiotics (2) Anasarca Priority: Secondary Status: Chronic Assessment and Plan: 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 nephrology consulted, appreciate recommendations continue prednisone 10 mg daily, IV lasix 40 mg BID, metolazone 5 mg daily, and aldactone 50 mg daily No further work up anticipated at this time, continue home meds at discharge with Nephrology follow up (3) Atrial fibrillation Priority: Secondary Status: Chronic Assessment and Plan: Rate controlled with Coreg Not on anti coag due to recent hemothorax Rate stable here, discharge on home meds Qualifiers: Atrial fibrillation type: chronic Qualified Code(s): I48.2 - Chronic atrial fibrillation (4) CAD (coronary artery disease) Priority: Secondary Status: Chronic Assessment and Plan: Continued home medications through hospital course and discharge Qualifiers: Coronary Disease-Associated Artery/Lesion type: [place] artery [place] vs. transplanted heart: [place] heart Associated angina: without angina Qualified Code(s): I25.10 - Atherosclerotic heart disease of [place] coronary artery without angina pectoris (5) Hyperlipidemia Priority: Secondary Status: Chronic Assessment and Plan: Continued home medications through hospital course and discharge Qualifiers: Hyperlipidemia type: mixed hyperlipidemia Qualified Code(s): E78.2 - Mixed hyperlipidemia (6) Nephrotic syndrome Priority: Secondary Status: Chronic (7) CKD (chronic kidney disease), stage III Priority: Secondary Status: Chronic Assessment and Plan: stable creatinine at baseline, nephrology consulted during hospital course and follow up at discharge (8) Chronic systolic (congestive) heart failure Priority: Secondary Status: Chronic Assessment and Plan: Not in exacerbation Continued all home meds through hospital course and discharge (9) Lung nodule Priority: Secondary Status: Chronic Assessment and Plan: Known lung nodule, followed by Pulmonology No immediate intervention planned Will follow with Pulmonology outpatient (10) FSGS (focal segmental glomerulosclerosis) with nephrosis Priority: Secondary Status: Suspected Hospital course: Mr. Dumont is a 72 year old male with past medical history of CABG 01/2018, chronic systolic CHF, chronic atrial fibrillation, CKD stage III, COPD , HTN, HLD and CAD who had diffuse b/l UE and LE edema with concerning for Nephrotic syndrome for which he was placed on Prednisone 10mg, was recently admitted here on 06/06/18 now he went to [place] [facility] with worsening Left UE swelling , tenderness with erythema. He was sent to our hospital for further care. He was admitted and treated for cellulitis of LUE with pharmacy dosed Vancomycin. Nephrology was also consulted for management while hospitalized. The patient did well clinically on antibiotics and Nephrology made no major changes to nephrotic regimen. Pulmonology was also consulted who manages him outpatient, and advised keeping his outpatient follow up. The patient was considered medically stable after 4 days antibiotics, to be transitioned to oral doxycycline x 6 days for 10 days total antibiotics. Discharge discussed with: patient - Time Spent with Patient Total time spent providing and/or coordinating discharge services: - Discharge Medications Prescriptions: Doxycycline 100 mg PO BID 6 Days #12 capsule Home Medications: Albuterol Neb [Proventil Neb] 2.5 mg IH Q6HR 05/27/18 [History] Allopurinol [Zyloprim 100 MG] 100 mg PO DAILY 05/27/18 [History] Bumetanide [Bumex] 1 mg PO TID 05/27/18 [History] Carvedilol [Coreg] 25 mg PO BID 05/27/18 [History] Colchicine [Colcrys] 0.6 mg PO DAILY PRN 05/27/18 [History] Docusate [Colace] 200 mg PO DAILY 05/27/18 [History] Ferrous Sulfate [Iron] 325 mg PO DAILY 05/27/18 [History] Pravastatin Sodium [Pravachol] 80 mg PO HS 05/27/18 [History] metOLazone [Zaroxolyn] 5 mg PO DAILY 05/27/18 [History] Aspirin 81 mg PO DAILY 30 Days #30 tab.chew 06/03/18 [Rx] Spironolactone [Aldactone] 50 mg PO DAILY 30 Days #30 tablet 06/03/18 [Rx] predniSONE [PredniSONE] See Taper PO DAILY 28 Days #70 tablet 06/03/18 [Rx] Digoxin [Lanoxin] 0.125 mg PO QOD 06/17/18 [History] GlipiZIDE [Glipizide Xl] 2.5 mg PO DAILY 06/17/18 [History] Doxycycline 100 mg PO BID 6 Days #12 capsule 06/21/18 [Rx] Allergies/Adverse Reactions: Allergy/AdvReac Type Severity Reaction Status Date / Time meperidine [From Demerol] Allergy Hives Verified 05/25/18 12:28 Date of admission: 06/17/18 19:25 [facility] care physician[facility] Consults: 06/17/18 18:42 Consult to Physical Therapy [CONS] Routine Comment: Evaluate, develop and implement POC Reason for Consult: Deconditioning Does patient have active BEDREST order?: No Is patient medically & hemodynamically stable?: Yes Patient assessed for mobility or mobilized this visit?: Yes 06/17/18 19:06 Consult to Nephrology [CONS] Routine Consulting Provider: [facility]/ORIMI/PARG/ROSY Reason for Consult: Anasrca with nephrotic ( FSGS ) syndrome Time Notified: 19:07 Call Completed: Yes Discharging clinician: Kosta Maria Anticipated date of discharge: 06/21/18 - Constitutional Vitals: Temp Pulse Resp BP Pulse Ox 98.2 F 87 13 154/91 96 06/21/18 07:32 06/21/18 07:32 06/21/18 07:32 06/21/18 07:32 06/21/18 07:32 General appearance: Present: cooperative, A&O X 3, no acute distress, answers questions appropriately Exam: General: alert, NAD HEENT: normocephalic, atraumatic, PEERLA EOMI, neck supple, trachea midline, external ears normal, MMM Cardiac: irregularly irregular rhythm, no murmur or gallop Respiratory: CTAB Abdomen: soft, nontender, BS present Extremities: anasarca - 2+ edema everywhere, left upper extremity with increased swelling 3+ swelling from fingers to distal 1/3 of arm - volar surface of left arm erythematous Neuro: A&Ox3 Psych: normal affect - Patient Status Disposition: Home, Self-Care Condition: Good Functional capacity at discharge: independent ambulation Overall status at discharge: patient is progressing back to baseline - Ambulatory Orders Ambulatory Orders: Basic Metabolic Panel [CHEM] Time Frame: 1 Day, Facility: [facility] [place], Location: Lab Complete Blood Count [HEME] Time Frame: 1 Day, Facility: [facility] [place], Location: Lab - Discharge Instructions Instructions: Heart Failure (DC), Cellulitis (DC) Follow Up With: [facility] De[facility]/REYNOLD/AMEENA [Provider Group] (follow up appointment has been requested. office will call with date and time of appointment. ) [facility] [Primary Care Provider] - 06/28/18 1:45 pm Forms: ED Satisfaction Letter Additional Instructions: Follow-up appointments: If there is not an appointment listed below, please call your physician and schedule a follow-up appointment. If you have congestive heart failure and your symptoms return, make an appointment with your physician. Medication List: Carry an up to date list of medications you are taking at all time. We have given you an updated medication list including any new medications that you have been prescribed. Please provide that list to your primary provider Symptoms: If your condition changes or you experience any of the following symptoms, notify your physician immediately: Unusual or worsening pain, fever, persistent nausea and vomiting, bleeding, increase in swelling (especially in your legs), sudden weight gain, extreme dizziness, chest pain, increased drainage or redness from a wound or incision. Go to the emergency department if you experience a problem with breathing. Weights: If you have a history of swelling or shortness of breath, weigh yourself daily and notify your physician if you have a weight gain of two or more pounds in one day or 5 or more pounds in a week. If you experience any of the warning signs for stroke: Sudden numbness or weakness of the face, arm or leg; especially on one side of the body, sudden confusion, trouble speaking or understanding, sudden trouble seeing in one or both eyes, sudden trouble walking, dizziness, loss of balance or coordination, sudden sever headache with no cause; Call 911 or go to the emergency room. Stroke is a medical emergency. Some risk factors for stroke: Age, cigarette smoking, diabetes, excessive alcohol consumption, family history, high blood pressure, overweight, physical inactivity, prior stroke, heart attack, diagnosis of carotid artery stenosis or other artery disease. If you smoke, STOP: Smoking or tobacco use significantly increases your risk of heart and lung disease. Your chance of disease greatly increases if you continue to smoke. For more information, call the [place] tobacco quit line for smoking cessation 6-861-RELS-NOW ( ) - Diet and Activity Activity: resume usual activities as tolerated Diet: advance to your usual diet <Joel Murrieta - Last Filed: 06/21/18 18:32> Orders not resulted at time of discharge: Pending orders 06/17/18 15:56 Culture,Blood [BC] Stat Date of Encounter: 06/21/18 - Discharge Diagnosis (1) Atrial fibrillation Status: Chronic Qualifiers: Atrial fibrillation type: chronic Qualified Code(s): I48.2 - Chronic atrial fibrillation (2) Lung nodule Status: Chronic (3) CAD (coronary artery disease) Status: Chronic Qualifiers: Coronary Disease-Associated Artery/Lesion type: [place] artery [place] vs. transplanted heart: [place] heart Associated angina: without angina Qualified Code(s): I25.10 - Atherosclerotic heart disease of [place] coronary artery without angina pectoris (4) Anasarca Status: Chronic (5) Hyperlipidemia Status: Chronic Qualifiers: Hyperlipidemia type: mixed hyperlipidemia Qualified Code(s): E78.2 - Mixed hyperlipidemia (6) Nephrotic syndrome Status: Chronic (7) CKD (chronic kidney disease), stage III Status: Chronic (8) Left arm cellulitis Status: Acute (9) Chronic systolic (congestive) heart failure Status: Chronic (10) FSGS (focal segmental glomerulosclerosis) with nephrosis Status: Suspected Hospital course: Mr. Dumont is a 72 year old male - Time Spent with Patient Total time spent providing and/or coordinating discharge services: Date of admission: 06/17/18 19:25 Primary care physician: [facility]CP [facility] Consults: 06/17/18 18:42 Consult to Physical Therapy [CONS] Routine Comment: Evaluate, develop and implement POC Reason for Consult: Deconditioning Does patient have active BEDREST order?: No Is patient medically & hemodynamically stable?: Yes Patient assessed for mobility or mobilized this visit?: Yes 06/17/18 19:06 Consult to Nephrology [CONS] Routine Consulting Provider: Noemy Lewis/REYNOLD/AUREA/ROSY Reason for Consult: Anasrca with nephrotic ( FSGS ) syndrome Time Notified: 19:07 Call Completed: Yes - Constitutional Vitals: Temp Pulse Resp BP Pulse Ox 97.8 F 92 14 138/72 98 06/21/18 11:55 06/21/18 11:55 06/21/18 11:55 06/21/18 11:55 06/21/18 11:55 - Attending Attestation I examined this patient and my medical decision-making was reviewed with the Resident Physician on 06/21/18. I agree with the documented findings, disposition and treatment plan as described except to the extent set forth below. Mr Dumont has been admitted for acute cellulitis of LUE. He was also diuresed by nephrology with improvement. His renal function improved as well. He is now afebrile and ready for discharge home. Exam alert Comfortable Mucus membranes dry Heart reg No wheeze Edema present but improved No erythema seen on arm. Plan D/C home today Follow up with Dr. Beck and Dr. Alegria
[2018-06-21 11:48] LABS: Hematocrit 32.6 % (37.5-50.1)
[2018-06-21 11:53] LABS: VBG Ionized Calcium 1.17 mmol/L (1.15-1.35)
[2018-06-21 11:55] LABS: Hemoglobin 10.8 g/dL (12.9-16.9)
[2018-06-21 11:56] VITALS: BP 138/72
[2018-06-21 14:58] LABS: Total Volume 24 Hour,Urine 1.96 Liters (0.80-1.80)
[2018-06-21] MEDS ORDERED: Aminoglycoside Consult 1 EACH MC ONE (15:02)
[2018-06-21 15:49] LABS: Creatinine 24 Hour,Urine 980 mg/day (800-2000); Creatinine,Urine 50 mg/dL; Microalbumin,Urine > 1350 mg/L; Protein/Creatinine Ratio,Urine 9.34 mg/mg (0.00-0.20); Total Protein 24 Hour,Urine 9153 mg/day (50-80)
== END 2018-06-21 15:03 | disposition home or self-care (01) | DRG 603 ==
LOC: 3BNU 15:17 → EMEROOARM 15:17 → SUATTDRO 19:25 → 3BNU 20:54
PROVIDERS: ADMIT Internal Medicine; ATTEND Internal Medicine

== ENCOUNTER 2018-07-27 10:43 | Inpatient (IN) ==
--- NOTE | 2018-07-27 11:48 | Emergency Department Note ---
Disposition Clinical Impression: [place], Chronic kidney disease, stage 4 (severe) Disposition: Admitted As Inpatient Condition: Fair Time of Disposition: 13:40 General Adult HPI - General Chief complaint: ED Shortness of Breath/Dyspnea Stated complaint: Hands/Legs swelling Time Seen by Provider: 07/27/18 10:58 Source: patient, family Limitations: no limitations - History of Present Illness HPI Narrative: 75 year old male with PMHx of COPD not on home O2, CKD IV, CHF, HTN, HLD, DM presents to ED with complaints of swelling in hands and feet. Patient states he had double cardiac bypass surgery in January 2018 and noticed the swelling at that time. He has been taking bumex, spironolactone, and metolazone. He was recently admitted for similar symptoms, and Dr. Beck increased his bumex from 1 mg TID to 4 mg daily. Patient states his swelling started to worsen about 5 days ago. He has noticed it in his arms/hands, legs/feet, and abdomen. He has associated SOB with exertion. He admits to a 5 pound weight gain in 5 days. He denies fevers/chills, CP, HODGE, numbness/tingling. He is on a 1500 mg sodium restricted diet and a 1400 ml fluid restricted diet. Patient is a former smoker, he denies history of alcohol and drug use. Pt Subjective Complaint: Swelling in hands and feet Pain Scale: 0 - Related Data Home Medications Medication Instructions Recorded Confirmed Albuterol Neb [Proventil Neb] 2.5 mg IH Q6HR 05/27/18 06/17/18 Allopurinol [Zyloprim 100 MG] 100 mg PO DAILY 05/27/18 06/17/18 Bumetanide [Bumex] 1 mg PO TID 05/27/18 06/17/18 Carvedilol [Coreg] 25 mg PO BID 05/27/18 06/17/18 Colchicine [Colcrys] 0.6 mg PO DAILY PRN 05/27/18 06/17/18 Docusate [Colace] 200 mg PO DAILY 05/27/18 06/17/18 Ferrous Sulfate [Iron] 325 mg PO DAILY 05/27/18 06/17/18 Pravastatin Sodium [Pravachol] 80 mg PO HS 05/27/18 06/17/18 metOLazone [Zaroxolyn] 5 mg PO DAILY 05/27/18 06/17/18 Digoxin [Lanoxin] 0.125 mg PO QOD 06/17/18 06/17/18 GlipiZIDE [Glipizide Xl] 2.5 mg PO DAILY 06/17/18 06/17/18 Allergies Allergy/AdvReac Type Severity Reaction Status Date / Time meperidine [From Demerol] Allergy Hives Verified 05/25/18 12:28 All systems ED: reviewed and negative except as stated. Constitutional: Denies: fever Cardiovascular: Denies: chest pain Respiratory: Reports: dyspnea Gastrointestinal: Denies: vomiting, diarrhea Past Medical History - Past Medical History Attestation: Yes The following information was validated with the patient. Source: patient Medical history: Reports: atrial fibrillation, CHF, coronary artery disease, hypertension, renal disease Surgical history: Reports: coronary bypass (CABG), herniorrhaphy Psychiatric history: Reports: no psych history - Social History Smoking Status: Never smoker Smokeless Tobacco Status: No Alcohol use: Reports: none Drug use: Reports: none Physical Exam - General Limitations: no limitations General appearance: alert, in no apparent distress - Head Head exam: atraumatic - Expanded Neck Exam Neck exam focused ED: Absent: JVD, carotid bruit - Respiratory Respiratory exam: Present: wheezes - Cardiovascular Cardiovascular exam: Present: regular rate, normal rhythm - Abdominal Exam Abdominal exam: Present: soft, Non-Tender, distention, normal bowel sounds - Extremities Exam Extremities exam: Present: normal capillary refill, pedal edema - Expanded Upper Extremity Exam Elbow exam: Present: swelling Forearm/Wrist exam: Present: swelling Hand exam: Present: swelling - Expanded Lower Extremity Exam Lower leg exam: Present: swelling Ankle exam: Present: swelling - Neurological Exam Neurological exam: Present: alert, oriented X3 - Psychiatric Psychiatric exam: Present: normal affect, normal mood - Skin Skin exam: Present: warm, dry Course Vital Signs Temperature 97.8 F 07/27/18 10:47 Pulse Rate 83 07/27/18 10:47 Respiratory Rate 18 07/27/18 10:47 Blood Pressure 128/80 07/27/18 10:47 O2 Sat by Pulse Oximetry 99 07/27/18 10:47 Temperature 97.8 F 07/27/18 10:47 Pulse Rate 83 07/27/18 10:47 Respiratory Rate 18 07/27/18 10:47 Blood Pressure 128/80 07/27/18 10:47 O2 Sat by Pulse Oximetry 99 07/27/18 10:47 Oxygen Delivery Oxygen Delivery Room Air Medical Decision Making - MDM Narrative Medical decision making narrative: Patient with PMHx of CKD IV, CHF, COPD presents with 5 days of increased swelling in hands and feet. Patient with edema in forearm and hands, legs and feet, and abdomen. Wheezes in lung peña bilaterally. Heart RRR but difficult to hear. Will order chest x-ray, CBC, BMP, BNP, troponin, EKG. Patient with elevated trop of 0.06, likely demand ischemia, given aspirin. Patient with elevated Cr at 3.95, from 1.9 in June 2018. Patient will be admitted to hospitalist team with nephrology consult. - Medical Records Medical records reviewed: Yes I reviewed the patient's medical records. - Lab Data Lab results reviewed: Yes I reviewed the patient's lab results. Result diagrams: 07/27/18 11:53 07/27/18 11:53 Lab Results 07/27/18 07/27/18 07/27/18 Range/Units 11:53 11:53 11:53 WBC 7.3 (4.3-11.1) K/mcL RBC 3.52 L (4.19-5.50) M/mcL Hgb 11.3 L (12.9-16.9) g/dL Hct 32.7 L (37.5-50.1) % MCV 92.9 (83.0-100.0) fL MCH 32.1 (28.0-33.3) pg MCHC 34.6 (31.6-35.5) g/dL RDW 14.2 (11.5-14.5) % Plt Count 243 (140-400) K/mcL MPV 9.8 (9.4-12.4) fL Immature Gran % 0.4 (0-4) % Seg Neutrophils % 73.8 % Lymphocytes % 17.4 % Monocytes % 6.0 % Eosinophils % 1.9 % Basophils % 0.5 % Neutrophils # 5.4 (1.6-8.9) K/mcL Lymphocytes # 1.3 (0.6-4.6) K/mcL Monocytes # 0.4 (0.0-1.3) K/mcL Eosinophils # 0.1 (0.0-0.6) K/mcL Basophils # 0.0 (0.0-0.2) K/mcL Sodium 135 L (136-145) mEq/L Potassium 3.8 (3.5-5.1) mEq/L Chloride 101 (98-107) mEq/L Carbon Dioxide 23 (23-29) mEq/L BUN 106 H (8-23) mg/dL Creatinine 3.95 H (0.70-1.30) mg/dL Est GFR ( Amer) 18 L (> 60) Est GFR (Non-Af Amer) 15 L (> 60) BUN/Creatinine Ratio 27 H (6-26) Glucose 89 (70-105) mg/dL Calculated Osmolality 313 H (280-300) Calcium 7.6 L (8.6-10.3) mg/dL Total Bilirubin 0.2 L (0.3-1.0) mg/dL AST 18 (13-39) Units/L ALT 9 (7-52) Units/L Alkaline Phosphatase 48 (34-104) Units/L Troponin I 0.06 H* (< 0.04) ng/mL B-Natriuretic Peptide 275 H (Less than 100) pg/mL Serum Total Protein 4.6 L (6.4-8.9) g/dL Albumin 1.8 L (3.5-5.7) g/dL Globulin 2.8 (2.4-3.5) g/dL Albumin/Globulin Ratio 0.6 L (1.1-2.2) - Radiology Data Radiology results reviewed: Yes I reviewed the patient's radiology results. - EKG Data EKG #1 EKG attestation: Yes I reviewed and interpreted this EKG. EKG results narrative: Patient with afib without RVR, HR 71, QRS 114, QTc 455
[2018-07-27 12:04] LABS: Basophils % 0.5 %; Eosinophils # 0.1 K/mcL (0.0-0.6); Eosinophils % 1.9 %; Hematocrit 32.7 % (37.5-50.1); Hemoglobin 11.3 g/dL (12.9-16.9); Immature Granulocytes % 0.4 % (0-4); Lymphocytes # 1.3 K/mcL (0.6-4.6); Lymphocytes % 17.4 %; Mean Corpuscular HGB Conc 34.6 g/dL (31.6-35.5); Mean Corpuscular Hemoglobin 32.1 pg (28.0-33.3); Mean Corpuscular Volume 92.9 fL (83.0-100.0); Mean Platelet Volume 9.8 fL (9.4-12.4); Monocytes # 0.4 K/mcL (0.0-1.3); Neutrophils # 5.4 K/mcL (1.6-8.9); Platelet Count 243 K/mcL (140-400); Red Blood Count 3.52 M/mcL (4.19-5.50); Red Cell Distribution Width 14.2 % (11.5-14.5); Segmented Neutrophils % 73.8 %
[2018-07-27 12:25] LABS: Albumin 1.8 g/dL (3.5-5.7); Albumin/Globulin Ratio 0.6 (1.1-2.2); Bilirubin,Total 0.2 mg/dL (0.3-1.0); Calcium 7.6 mg/dL (8.6-10.3); Globulin 2.8 g/dL (2.4-3.5); Potassium 3.8 mEq/L (3.5-5.1); Total Protein 4.6 g/dL (6.4-8.9)
--- NOTE | 2018-07-27 12:26 | Emergency Department Note ---
Disposition Clinical Impression: Anasarca, Chronic kidney disease, stage 4 (severe) Disposition: Admitted As Inpatient Condition: Fair General Adult HPI - General Chief complaint: ED Shortness of Breath/Dyspnea Stated complaint: Hands/Legs swelling Time Seen by Provider: 07/27/18 10:58 Source: patient, family Limitations: no limitations - History of Present Illness Pain Scale: 0 - Related Data Home Medications Medication Instructions Recorded Confirmed Albuterol Neb [Proventil Neb] 2.5 mg IH Q6HR 05/27/18 06/17/18 Allopurinol [Zyloprim 100 MG] 100 mg PO DAILY 05/27/18 06/17/18 Bumetanide [Bumex] 1 mg PO TID 05/27/18 06/17/18 Carvedilol [Coreg] 25 mg PO BID 05/27/18 06/17/18 Colchicine [Colcrys] 0.6 mg PO DAILY PRN 05/27/18 06/17/18 Docusate [Colace] 200 mg PO DAILY 05/27/18 06/17/18 Ferrous Sulfate [Iron] 325 mg PO DAILY 05/27/18 06/17/18 Pravastatin Sodium [Pravachol] 80 mg PO HS 05/27/18 06/17/18 metOLazone [Zaroxolyn] 5 mg PO DAILY 05/27/18 06/17/18 Digoxin [Lanoxin] 0.125 mg PO QOD 06/17/18 06/17/18 GlipiZIDE [Glipizide Xl] 2.5 mg PO DAILY 06/17/18 06/17/18 Allergies Allergy/AdvReac Type Severity Reaction Status Date / Time meperidine [From Demerol] Allergy Hives Verified 05/25/18 12:28 Past Medical History - Past Medical History Medical history: Reports: atrial fibrillation, CHF, coronary artery disease, hypertension, renal disease Surgical history: Reports: coronary bypass (CABG), herniorrhaphy Psychiatric history: Reports: no psych history - Social History Smoking Status: Never smoker Smokeless Tobacco Status: No Alcohol use: Reports: none Drug use: Reports: none Physical Exam - General Limitations: no limitations General appearance: alert, in no apparent distress Course Vital Signs Temperature 97.8 F 07/27/18 10:47 Pulse Rate 83 07/27/18 10:47 Respiratory Rate 18 07/27/18 10:47 Blood Pressure 128/80 07/27/18 10:47 O2 Sat by Pulse Oximetry 99 07/27/18 10:47 Temperature 97.7 F 07/27/18 17:09 Pulse Rate 76 07/27/18 17:09 Respiratory Rate 16 07/27/18 17:09 Blood Pressure 153/89 07/27/18 17:09 O2 Sat by Pulse Oximetry 98 07/27/18 17:09 Oxygen Delivery Oxygen Delivery Room Air Medical Decision Making - Lab Data Result diagrams: 07/27/18 11:53 07/27/18 11:53 Lab Results 07/27/18 07/27/18 07/27/18 Range/Units 11:53 11:53 11:53 WBC 7.3 (4.3-11.1) K/mcL RBC 3.52 L (4.19-5.50) M/mcL Hgb 11.3 L (12.9-16.9) g/dL Hct 32.7 L (37.5-50.1) % MCV 92.9 (83.0-100.0) fL MCH 32.1 (28.0-33.3) pg MCHC 34.6 (31.6-35.5) g/dL RDW 14.2 (11.5-14.5) % Plt Count 243 (140-400) K/mcL MPV 9.8 (9.4-12.4) fL Immature Gran % 0.4 (0-4) % Seg Neutrophils % 73.8 % Lymphocytes % 17.4 % Monocytes % 6.0 % Eosinophils % 1.9 % Basophils % 0.5 % Neutrophils # 5.4 (1.6-8.9) K/mcL Lymphocytes # 1.3 (0.6-4.6) K/mcL Monocytes # 0.4 (0.0-1.3) K/mcL Eosinophils # 0.1 (0.0-0.6) K/mcL Basophils # 0.0 (0.0-0.2) K/mcL Sodium 135 L (136-145) mEq/L Potassium 3.8 (3.5-5.1) mEq/L Chloride 101 (98-107) mEq/L Carbon Dioxide 23 (23-29) mEq/L BUN 106 H (8-23) mg/dL Creatinine 3.95 H (0.70-1.30) mg/dL Est GFR ( Amer) 18 L (> 60) Est GFR (Non-Af Amer) 15 L (> 60) BUN/Creatinine Ratio 27 H (6-26) Glucose 89 (70-105) mg/dL Calculated Osmolality 313 H (280-300) Calcium 7.6 L (8.6-10.3) mg/dL Total Bilirubin 0.2 L (0.3-1.0) mg/dL AST 18 (13-39) Units/L ALT 9 (7-52) Units/L Alkaline Phosphatase 48 (34-104) Units/L Troponin I 0.06 H* (< 0.04) ng/mL B-Natriuretic Peptide 275 H (Less than 100) pg/mL Serum Total Protein 4.6 L (6.4-8.9) g/dL Albumin 1.8 L (3.5-5.7) g/dL Globulin 2.8 (2.4-3.5) g/dL Albumin/Globulin Ratio 0.6 L (1.1-2.2) Digoxin 0.7 L (0.8-2.0) ng/mL Attestation Statement - Attestation Attestation: I examined this patient and my medical decision-making was reviewed with the Resident Physician. I agree with the documented findings, disposition and treat ment plan as described except to the extent set forth below. Patient presents to the emergency department with a chief complaint of hand and foot swelling. Onset several days ago. Called his security installer who directed him to come to the ED. Patient has a history of chronic renal failure which is getting worse. Shortness of breath with exertion. On examination he has diffuse edema to the hands and feet. Plan. Basic labs. Chest x-ray cardiac workup. Workup reviewed. Patient admitted for worsening renal failure and fluid overload. Chest X-Ray 07/27/18 11:22 IMPRESSION: 1. Near resolution of mass/consolidation central upper right lung described previously. 2. No new pulmonary disease is evident. 3. Cardiomegaly. 4. Calcific atherosclerotic disease aorta. D/ / Alex Malloy / Alex Malloy Interpreting Provider: Alex Malloy
[2018-07-27 12:30] LABS: Troponin I 0.06 ng/mL (< 0.04)
[2018-07-27] MEDS ORDERED: Aspirin 325 MG TABLET PO ONE (12:54)
[2018-07-27 13:48] LABS: Digoxin 0.7 ng/mL (0.8-2.0)
--- NOTE | 2018-07-27 14:56 | Internal Med History&Physical ---
Date of Encounter: 07/27/18 Time of Encounter: 14:53 Internal Medicine - H&P: HPI Chief complaint: edema Admitted From: Home Plans for Post Hospital Care: Home History of present illness: Mr. Dumont is a 73 year old male CKD stage IV, edema, HLD, CHF on bumex, afib (Hx GI bleed so anticoag contraindicated). at bedside. Pt reports increasing LE edema that's been going on for about 5 days. Pt states he's gained about 5lbs states he also gets SOB with activity. Pt denies chest pain. Pt denies cough, fever, chills, N/V or diarrhea. In ED WBC 7.3, plt 243. Na 135, k 3.8, bun 106, Cr 3.95. Troponin 0.06. Digoxin 0.7 Chest x ray XR/XR chest 1V IMPRESSION: 1. Near resolution of mass/consolidation central upper right lung described previously. 2. No new pulmonary disease is evident. 3. Cardiomegaly. 4. Calcific atherosclerotic disease aorta. CODE STATUS: FULL Mrs Dumont is next of Kin and designated decision maker. Past Med Surg Social Fam HX - Past Medical History Medical history: atrial fibrillation, CHF, coronary artery disease, hypertension, renal disease Additional medical history: gout Psychiatric history: no psych history - Past Surgical History Surgical History: coronary bypass (CABG), herniorrhaphy Additional surgical history: bowel resection - Social History Smoking Status: Never smoker Smokeless Tobacco Status: No Alcohol use: none Drug use: none - Family History Father Hx Family Cardiac Disorders: Yes ([place]) Grandfather Hx Family Cardiac Disorders: Yes Internal Medicine - H&P: Meds Albuterol Neb [Proventil Neb] 2.5 mg IH Q6HR 05/27/18 [History] Allopurinol [Zyloprim 100 MG] 100 mg PO DAILY 05/27/18 [History] Bumetanide [Bumex] 1 mg PO TID 05/27/18 [History] Carvedilol [Coreg] 25 mg PO BID 05/27/18 [History] Colchicine [Colcrys] 0.6 mg PO DAILY PRN 05/27/18 [History] Docusate [Colace] 200 mg PO DAILY 05/27/18 [History] Ferrous Sulfate [Iron] 325 mg PO DAILY 05/27/18 [History] Pravastatin Sodium [Pravachol] 80 mg PO HS 05/27/18 [History] metOLazone [Zaroxolyn] 5 mg PO DAILY 05/27/18 [History] Digoxin [Lanoxin] 0.125 mg PO QOD 06/17/18 [History] GlipiZIDE [Glipizide Xl] 2.5 mg PO DAILY 06/17/18 [History] Allergy/AdvReac Type Severity Reaction Status Date / Time meperidine [From Demerol] Allergy Hives Verified 05/25/18 12:28 All Systems PM: A 10-system review of systems was performed and is negative for pertinent findings except as documented above in the HPI. - Constitutional Vitals: Temp Pulse Resp BP Pulse Ox 97.8 F 83 18 128/80 99 07/27/18 10:47 07/27/18 10:47 07/27/18 10:47 07/27/18 10:47 07/27/18 10:47 General appearance: Present: A&O X 3, no acute distress Exam: pacemaker - Head Head exam: Present: atraumatic, normocephalic - Eye Eye exam: Present: PERRL, conjuntiva pink, sclera anicteric Pupils: Present: PERRL - Neck Neck exam general surgery: Present: supple, trachea midline. Absent: lymphadenopathy - Respiratory Respiratory exam: Present: CTAB. Absent: accessory muscle use, rales, rhonchi, wheezes - Cardiovascular Cardiovascular exam: Present: irregular rhythm. Absent: diastolic murmur, gallop, rubs, systolic murmur - GI/Abdominal GI/Abdominal exam: Present: normal bowel sounds, soft, no peritoneal signs. Absent: distended, tenderness - Extremities Exam Extremities exam: Present: warm, radial pulses palpable and symmetrical. Absent: calf tenderness, cyanotic, pedal edema - Neurological Exam Neurological exam: Present: CN II-XII intact, oriented X3, no focal deficits. Absent: pronater drift, facial droop, speech deficit - Skin Skin exam: Present: dry, intact Internal Med - H&P Results - Labs CBC & Chem 7: 07/27/18 11:53 07/27/18 11:53 Labs: Short CBC 07/27/18 Range/Units 11:53 WBC 7.3 (4.3-11.1) K/mcL Hgb 11.3 L (12.9-16.9) g/dL Hct 32.7 L (37.5-50.1) % Plt Count 243 (140-400) K/mcL Neutrophils # 5.4 (1.6-8.9) K/mcL BMP 07/27/18 11:53 Sodium 135 L Potassium 3.8 Chloride 101 Carbon Dioxide 23 BUN 106 H Creatinine 3.95 H Glucose 89 Calcium 7.6 L Cardiac Enzymes 07/27/18 Range/Units 11:53 Troponin I 0.06 H* (< 0.04) ng/mL Liver Function 07/27/18 Range/Units 11:53 Total Bilirubin 0.2 L (0.3-1.0) mg/dL AST 18 (13-39) Units/L ALT 9 (7-52) Units/L Alkaline Phosphatase 48 (34-104) Units/L Albumin 1.8 L (3.5-5.7) g/dL - Impressions ITS Impressions Chest X-Ray 07/27/18 11:22 IMPRESSION: 1. Near resolution of mass/consolidation central upper right lung described previously. 2. No new pulmonary disease is evident. 3. Cardiomegaly. 4. Calcific atherosclerotic disease aorta. D/ / Alex Malloy / Alex Malloy Interpreting Provider: Alex Malloy - Assessment and plan (1) Anasarca Current Visit: Yes Status: Chronic Assessment and plan: Due to volume overload. Will Place on Bumex IV and hold PO. Will consult nephrology. (2) Acute kidney injury superimposed on CKD Current Visit: Yes Status: Acute Assessment and plan: Cr 06/22/18 1.90. Cr 3.95 now. Hx of CKD stage IV. Will monitor renal panel QD. Will place on IV Bumex for now. Discussed with Dr. Rubalcava. (3) Atrial fibrillation Current Visit: No Status: Chronic Assessment and plan: Will resume home Digoxin. Will check Digoxin level. Qualifiers: Atrial fibrillation type: chronic Qualified Code(s): I48.2 - Chronic atrial fibrillation (4) CAD (coronary artery disease) Current Visit: No Status: Chronic Assessment and plan: ASA 325 mg PO QD. On Coreg. Will clarify if on statin at home. Qualifiers: Coronary Disease-Associated Artery/Lesion type: [place] artery [place] vs. transplanted heart: [place] heart Associated angina: without angina Qualified Code(s): I25.10 - Atherosclerotic heart disease of [place] coronary artery without angina pectoris (5) Emphysema lung Current Visit: No Status: Chronic Assessment and plan: Will place on PRN nebs but not in acute COPD exacerbation. Qualifiers: Emphysema type: panlobular Qualified Code(s): J43.1 - Panlobular emphysema - Time Spent With Patient Total time spent is greater than 50% in coordination of care (as documented) at patient's floor/unit and/or counseling patient: 25 - 35 minutes
[2018-07-27] MEDS ORDERED: Naloxone 0.4 MG/ML INJ IVP PRN (16:29)
[2018-07-27] MEDS ORDERED: Ondansetron 4 MG/2 ML VIAL IVP PRN (16:29)
[2018-07-27] MEDS ORDERED: Acetaminophen 325 MG TABLET PO PRN (16:29)
--- NOTE | 2018-07-27 16:55 | Electrocardiograph Report ---
[address] [address] Test Date: 2018-07-27 Pat Name: Clement Dumont Department: EXAM7 Room: 3A Gender: M Museum Guide: : 1945 Requested By: Aman Chaves Order Number: [id number] Reading MD: Bebo Hicks Measurements Intervals [place] Rate: 71 P: [place]: QRS: 62 QRSD: 114 T: -86 QT: 418 QTc: 455 Interpretive Statements Atrial fibrillation Ventricular paced beat Electronically Signed On 07-27-2018 16:54:09 EST by Bebo Hicks
[2018-07-27] MEDS ORDERED: D5% in Water 1,000 ML IVC PRN (18:03)
[2018-07-27] MEDS ORDERED: *HR* Dextrose 50 % in Water (Syg) 50 ML SYRINGE IVP PRN (18:03)
[2018-07-27] MEDS ORDERED: Dextrose Gel 15 GM/37.5 ML TUBE PO PRN ×2 (18:03)
[2018-07-27] MEDS: *HR* GlipiZIDE 5 MG TABLET PO SCH (18:39)
[2018-07-27] MEDS: Bumetanide 1 MG/4 ML VIAL IVP SCH (18:39)
[2018-07-27] MEDS: *HR* Digoxin 0.125 MG TABLET PO SCH (18:42)
[2018-07-27] MEDS: Albuterol 2.5 MG/3 ML NEBULIZER IH SCH (21:39)
[2018-07-27 23:56] LABS: Bilirubin,Urine Negative (Negative); Blood,Urine Moderate (Negative); Clarity,Urine Clear (Clear); Color,Urine Yellow (Yellow); Glucose,Urine (UA) Normal (Normal); Ketones,Urine Negative (Negative); Leukocyte Esterase,Urine Negative (Negative); Nitrite,Urine Negative (Negative); Protein,Urine >=300 mg/dL (Neg-Trace); Specific Gravity,Urine 1.025 (1.010-1.025); Urobilinogen,Urine Normal (Normal)
[2018-07-28 00:17] LABS: RBC,Urine 15-30 per hpf (0-3); WBC,Urine 0-3 per hpf (0-3)
[2018-07-28 00:18] LABS: Bacteria,Urine Few per hpf (None-Few); Squamous Epithelial Cell,Urine Moderate per lpf (None-Few)
[2018-07-28 00:58] LABS: Albumin 1.5 g/dL (3.5-5.7); Calcium 7.2 mg/dL (8.6-10.3); Phosphorous 9.1 mg/dL (2.7-4.5); Potassium 3.4 mEq/L (3.5-5.1)
[2018-07-28 01:11] LABS: Protein/Creatinine Ratio,Urine 14.6 mg/mg (0.00-0.20); Sodium, Urine 53.9 mEq/L
[2018-07-28] MEDS: Albuterol 2.5 MG/3 ML NEBULIZER IH SCH ×4 (04:28→21:31)
[2018-07-28] MEDS: Insulin LISPRO 300 UNITS/3 ML VIAL SQ SCH ×3 (08:00→16:58)
--- NOTE | 2018-07-28 09:16 | Internal Med Progress Note ---
<Soraya Bergeron R - Last Filed: 07/28/18 16:01> Hospitalist Progress Note - Encounter Date of Encounter: 07/28/18 Time of Encounter: 08:10 - Subjective Interval History: Pt is awake and pleasant on exam. He denies chest pain, SOB, abdominal pain, and increased swelling at this time. - Exam Vitals: Temp Pulse Resp BP Pulse Ox 97.4 F L 79 16 150/74 99 07/28/18 07:09 07/28/18 07:09 07/28/18 07:09 07/28/18 07:09 07/28/18 07:09 Exam: Constitutional - alert and pleasant, in NAD. HEENT - PERRL. EOMI. No obvious edema of face or neck. Neck non-tender to palpation without LAD. Cardio - irregular rhythm, normal rate, no audible murmurs. Respiratory - Lungs with mild wheezing throughout. No focal areas of consolidation or rales. Abdomen - sopft, nontender to palpation without rebound, guarding or rigidity. Scar from previous hernia repair without complications. Extremities - Pitting edema of bilateral upper extremities to the elbow, 1+. Feet without edema. 2+ edema legs. Skin - no visible rashes or skin breakdown. Neuro - a&o x3, follow commands. Good strength and sensation in all extremities. - Assessment and Plan (1) Anasarca Current Visit: Yes Status: Chronic Assessment and Plan: Due to volume overload and MAO on CKD, possibly prerenal due to CHF. Plan: Will Place on 1mg Bumex IV and hold PO. Will consult nephrology. (2) Acute kidney injury superimposed on CKD Current Visit: Yes Status: Acute Assessment and Plan: Cr 06/22/18 1.90. Cr 4.01 now. Hx of CKD stage IV and FSGS - significant worsening for past week with 5lb wt gain Plan: Will monitor renal panel QD. Will place on IV Bumex for now. Admitting hospitalist discussed with Dr. Khadar Sheikh following Renal US today (3) Nephrotic syndrome Current Visit: Yes Status: Chronic Assessment and Plan: Hx FSGS s/p cardiac cath in January 2018 Increased swelling of extremities Kidney panel shows Cre 4.01 with u protein of 876, increased from visit in june Plan: IV Bumex for volume overload Nephro following Cholesterol panel HbA1c (4) Atrial fibrillation Current Visit: No Status: Chronic Assessment and Plan: On Dig - level low here at 0.7 Plan: Digoxin Monitor levels and HR (5) CAD (coronary artery disease) Current Visit: No Status: Chronic Assessment and Plan: Continue home ASA 325 mg, Coreg, and statin. (6) Emphysema lung Current Visit: No Status: Chronic Assessment and Plan: CXR improved Continue home symbicort PRN nebs but not in acute COPD exacerbation. (7) Diabetes mellitus Current Visit: Yes Status: Chronic Assessment and Plan: Hx of DM without insulin use Plan: Continue home Glipizide 2.5 mg SSI if needed while in hospital DVT Prophylaxis: Pt is ambulatory - Time Spent with Patient Total time spent is greater than 50% in coordination of care (as documented) at patient's floor/unit and/or counseling patient: Internal Medicine: Result - Labs CBC & Chem 7: 07/27/18 11:53 07/28/18 00:28 Labs: Short CBC 07/27/18 Range/Units 11:53 WBC 7.3 (4.3-11.1) K/mcL Hgb 11.3 L (12.9-16.9) g/dL Hct 32.7 L (37.5-50.1) % Plt Count 243 (140-400) K/mcL Neutrophils # 5.4 (1.6-8.9) K/mcL BMP 07/27/18 07/28/18 11:53 00:28 Sodium 135 L 134 L Potassium 3.8 3.4 L Chloride 101 102 Carbon Dioxide 23 21 L BUN 106 H 104 H Creatinine 3.95 H 4.01 H Glucose 89 59 L Calcium 7.6 L 7.2 L Cardiac Enzymes 07/27/18 07/27/18 07/28/18 Range/Units 11:53 18:01 00:28 Troponin I 0.06 H* 0.06 H* 0.05 H* (< 0.04) ng/mL 07/28/18 Range/Units 04:47 Troponin I 0.05 H* (< 0.04) ng/mL Liver Function 07/27/18 07/28/18 Range/Units 11:53 00:28 Total Bilirubin 0.2 L (0.3-1.0) mg/dL AST 18 (13-39) Units/L ALT 9 (7-52) Units/L Alkaline Phosphatase 48 (34-104) Units/L Albumin 1.8 L 1.5 L (3.5-5.7) g/dL Urine 07/27/18 Range/Units 23:45 Urine Color Yellow (Yellow) Urine Clarity Clear (Clear) Urine pH 6.0 (5.0-8.0) pH Units Ur Specific [place] 1.025 (1.010-1.025) Urine Protein >=300 H (Neg-Trace) mg/dL Urine Glucose (UA) Normal (Normal) mg/dL - Impressions Impressions Chest X-Ray 07/27/18 11:22 IMPRESSION: 1. Near resolution of mass/consolidation central upper right lung described previously. 2. No new pulmonary disease is evident. 3. Cardiomegaly. 4. Calcific atherosclerotic disease aorta. 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 Current Visit: No Status: Suspected (2) Atrial fibrillation Current Visit: No Status: Chronic (3) CAD (coronary artery disease) Current Visit: No Status: Chronic (4) Anasarca Current Visit: Yes Status: Chronic (5) Emphysema lung Current Visit: No Status: Chronic (6) Acute kidney injury superimposed on CKD Current Visit: Yes Status: Acute (7) Chronic systolic (congestive) heart failure Current Visit: No Status: Chronic (8) Diabetes mellitus Current Visit: Yes Status: Chronic (9) Nephrotic syndrome Current Visit: Yes Status: Chronic - Time Spent with Patient Total time spent is greater than 50% in coordination of care (as documented) at patient's floor/unit and/or counseling patient: Internal Medicine: Result - Labs CBC & Chem 7: 07/27/18 11:53 07/28/18 00:28 Labs: BMP 07/28/18 00:28 Sodium 134 L Potassium 3.4 L Chloride 102 Carbon Dioxide 21 L BUN 104 H Creatinine 4.01 H Glucose 59 L Calcium 7.2 L Cardiac Enzymes 07/27/18 07/28/18 07/28/18 Range/Units 18:01 00:28 04:47 Troponin I 0.06 H* 0.05 H* 0.05 H* (< 0.04) ng/mL Liver Function 07/28/18 Range/Units 00:28 Albumin 1.5 L (3.5-5.7) g/dL Urine 07/27/18 Range/Units 23:45 Urine Color Yellow (Yellow) Urine Clarity Clear (Clear) Urine pH 6.0 (5.0-8.0) pH Units Ur Specific [place] 1.025 (1.010-1.025) Urine Protein >=300 H (Neg-Trace) mg/dL Urine Glucose (UA) Normal (Normal) mg/dL - Impressions Impressions Retroperitoneum Ultrasound 07/28/18 13:00 IMPRESSION: 1. No evidence of hydronephrosis. 2. 5.1 cm left renal cyst. 3. Prostatomegaly. D/ / Sonja Beckwith MD / Sonja Beckwith MD Interpreting Provider: Sonja Beckwith MD - Attending Attestation I examined this patient and my medical decision-making was reviewed with the Resident Physician on 07/28/18. I agree with the documented findings, disposition and treatment plan as described except to the extent set forth below. Mr Dumont is currently in observation for volume overload resulting from nephrotic syndrome. He remains moderate to high risk. Mr Dumont is feeling OK at this time. He is frustrated that this is occurring again. No CP or SOB. No fever or chills. Exam alert Pleasant Mucus membranes dry Heart not tachy No wheeze Significant edema noted I/P 1. Anasarca related to nephrotic syndrome - diuresis and further plan per nephrology. 2. FSGS 3. Chronic systolic heart failure Further diagnoses and plan as above. <Soraya Bergeron R - Last Filed: 07/28/18 16:01> (4) Atrial fibrillation Qualifiers: Atrial fibrillation type: chronic Qualified Code(s): I48.2 - Chronic atrial fibrillation (5) CAD (coronary artery disease) Qualifiers: Coronary Disease-Associated Artery/Lesion type: [place] artery [place] vs. transplanted heart: [place] heart Associated angina: without angina Qualified Code(s): I25.10 - Atherosclerotic heart disease of [place] coronary artery without angina pectoris (6) Emphysema lung Qualifiers: Emphysema type: panlobular Qualified Code(s): J43.1 - Panlobular emphysema <Joel Murrieta A - Last Filed: 07/28/18 18:43> (2) Atrial fibrillation Qualifiers: Atrial fibrillation type: chronic Qualified Code(s): I48.2 - Chronic atrial fibrillation (3) CAD (coronary artery disease) Qualifiers: Coronary Disease-Associated Artery/Lesion type: [place] artery [place] vs. transplanted heart: [place] heart Associated angina: without angina Qualified Code(s): I25.10 - Atherosclerotic heart disease of [place] coronary artery without angina pectoris (5) Emphysema lung Qualifiers: Emphysema type: panlobular Qualified Code(s): J43.1 - Panlobular emphysema (8) Diabetes mellitus Qualifiers: Diabetes mellitus type: type 2 Diabetes mellitus intermodal dispatcher insulin use: without group home use Diabetes mellitus complication status: without complication Qualified Code(s): E11.9 - Type 2 diabetes mellitus without complications
--- NOTE | 2018-07-28 09:25 | Nephrology Consult Note ---
Date of Encounter: 07/28/18 Time of Encounter: 10:00 Assessment and Plan (1) Anasarca Current Visit: Yes Status: Chronic -Patient presents with UE and LE edema, which began in January (s/p CABG) and has progressively worsened, significantly over the past 5 days. 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 [facility] -Creatinine 4.01; worsened from 1.90 on 06/22/18 -BUN 104, BUN/Cr 26 -BUN/Cr>20 signifying likely pre-renal cause, such as decreased cardiac contractility with CHF -Patient presented with worsening anasarca since January 2018, significant worsening x5 days -Echo from May 2018 reveals LVEF 45-50%, indeterminate diastolic funciton, RV mildly dilated, severe bi-atrial enlargement, mild-moderate mitral regurgitation, mild tricuspid regurgitation, mild pulmonary hypertension PLAN: -Continue bumex IV -Continue to monitor renal function -Renal diet (3) Nephrotic syndrome Current Visit: Yes Status: Chronic Patient has 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 PLAN: -Continue ASA ad Coreg per primary team Qualifiers: Coronary Disease-Associated Artery/Lesion type: [place] artery [place] vs. transplanted heart: [place] heart Associated angina: without angina Qualified Code(s): I25.10 - Atherosclerotic heart disease of [place] coronary artery without angina pectoris History of Present Illness - Reason for Consult Acute Kidney Injury - Chief Complaint bilateral hand and leg swelling - History of Present Illness Mr. Dumont is a 73 year old male with past medical history of CKD IV, FSGS, CHF, CAD, atrial fibrillation, hypertension, hyperlipidemia, DM, COPD, and gout presented to ED on 07/27 due to shortness of breath and progressively worsening swelling of arms and legs. Per chart review, patient developed swelling in January 2018 s/p CABG and it has progressively worsened, significantly in the past 5 days. Patient reports recent dose increase in Bumex from 1 mg TID to 4 mg QD. Patient endorses 5 lb weight gain over the past 5 days. He denies fever, chills, nausea, vomiting, chest pain, headache. Reports adherence to 1.5 g sodium restriction and 1.5 L fluid restriction as well as diuretic treatment. Patient was seen and examined at bedside this morning. He endorsed increased frequency of urination and generalized edema; denied chest pain, shortness of breath, abdominal pain, constipation, diarrhea, fever, chills, nausea vomiting. Past Med Surg Social Fam HX - Past Medical History Medical history: atrial fibrillation, CHF, coronary artery disease, hypertension, renal disease Additional medical history: gout Psychiatric history: no psych history - Past Surgical History Surgical History: coronary bypass (CABG), herniorrhaphy Additional surgical history: bowel resection - Social History Smoking Status: Never smoker Smokeless Tobacco Status: No Alcohol use: none Drug use: none - Family History Father Hx Family Cardiac Disorders: Yes ([place]) Grandfather Hx Family Cardiac Disorders: Yes Medications and Allergies Albuterol Neb [Proventil Neb] 2.5 mg IH Q6HR PRN 05/27/18 [History] Allopurinol [Zyloprim 100 MG] 100 mg PO DAILY 05/27/18 [History] Bumetanide [Bumex] 1 mg PO TID 05/27/18 [History] Carvedilol [Coreg] 25 mg PO BID 05/27/18 [History] Colchicine [Colcrys] 0.6 mg PO DAILY PRN 05/27/18 [History] Docusate [Colace] 200 mg PO DAILY 05/27/18 [History] Ferrous Sulfate [Iron] 325 mg PO DAILY 05/27/18 [History] Pravastatin Sodium [Pravachol] 80 mg PO HS 05/27/18 [History] metOLazone [Zaroxolyn] 5 mg PO DAILY 05/27/18 [History] Digoxin [Lanoxin] 0.125 mg PO QOD 06/17/18 [History] Albuterol Sulfate [Proair Hfa] 2 puff IN Q6H PRN 07/28/18 [History] Ascorbic Acid [Vitamin C] 500 mg PO DAILY 07/28/18 [History] Aspirin 162 mg PO DAILY 07/28/18 [History] Budesonide/Formoterol 160/4.5 [Symbicort 160/4.5] 1 puff IH BIDR 07/28/18 [History] Doxycycline 100 mg PO BID 07/28/18 [History] Psyllium Husk/Aspartame [Metamucil Powder] 10 gm PO DAILY PRN 07/28/18 [History] Spironolactone [Aldactone] 50 mg PO DAILY 07/28/18 [History] glipiZIDE [Glucotrol] 2.5 mg PO DAILY 07/28/18 [History] Allergy/AdvReac Type Severity Reaction Status Date / Time meperidine [From Demerol] Allergy Hives Verified 05/25/18 12:28 Review of Systems Constitutional: weight gain, no chills, no fever(s), no headache(s) Nose, mouth and throat: no headache(s) Cardiovascular: edema, no chest pain, no dyspnea Respiratory: no dyspnea Gastrointestinal: no abdominal pain, no constipation, no diarrhea, no nausea, no vomiting Genitourinary Male: urinary frequency, no dysuria Integumentary: swelling Neurological: no headache(s) Exam - Vital Signs Vital signs: Initial Vital Signs Temp Pulse Resp BP Pulse Ox 97.8 F 83 18 128/80 99 07/27/18 10:47 07/27/18 10:47 07/27/18 10:47 07/27/18 10:47 07/27/18 10:47 Vital Signs - Last 8 Hours Temp Pulse Resp BP Pulse Ox 07/28/18 07:09 97.4 F L 79 16 150/74 99 07/28/18 04:28 16 96 07/28/18 03:34 97.4 F L 76 16 142/75 97 Intake and Output 07/27/18 07/28/18 07/28/18 23:59 07:59 15:59 Intake Total 240 / 240 Output Total 350 / 350 0 / 0 Balance -110 / -110 0 / 0 Intake: Oral 240 / 240 Output: Urine 350 / 350 0 / 0 Other: Meal Dinner Percent of Meal Consumed 100% # Bowel Movements 0 Weight 73.2 kg Blood Glucose* 81 89 Patient Weight 07/28/18 23:59 Weight 73.2 kg - General Appearance General appearance: well-developed, well-nourished, appears started age EENT: ATNC, mucous membranes moist Neck: supple Respiratory: wheezing Cardiology: no murmurs, edema (1+ piting edema in UE bilaterally, 2+ pitting edema in LE bilaterally ), regular rate, regular rhythm Gastrointestinal: normoactive bowel sounds, no tenderness Integumentary: no rash, warm and dry Neurologic: no focal deficit Musculoskeletal: no deformities, no erythema, clubbing Psychiatric: mood/affect appropriate, cooperative Results - Lab Results 07/27/18 11:53 07/28/18 00:28 Most recent lab results Calcium 7.2 mg/dL (8.6-10.3) L 07/28/18 00:28 Phosphorus 9.1 mg/dL (2.7-4.5) H 07/28/18 00:28 Urine Creatinine 60 mg/dL 07/27/18 23:45 Urine Sodium 53.9 mEq/L 07/27/18 23:45 Urine Total Protein 876 mg/dL (1-14) H 07/27/18 23:45 Consult Discharge Plan - Plan [facility]errals: [facility] [Primary Care Provider] -
[2018-07-28] MEDS: Bumetanide 1 MG/4 ML VIAL IVP SCH ×2 (09:50→17:05)
[2018-07-28] MEDS: *HR* GlipiZIDE 5 MG TABLET PO SCH (09:50)
[2018-07-28] MEDS: Doxycycline 100 MG CAPSULE PO SCH ×2 (12:02→21:57)
[2018-07-28] MEDS: Budesonide/Formoterol 160/4.5 1 PUFF INH IH SCH ×2 (13:10→21:31)
[2018-07-28] MEDS: Aspirin Enteric Coated 325 MG Tablet PO SCH (15:34)
[2018-07-28] MEDS: predniSONE 20 MG TABLET PO SCH (21:57)
[2018-07-29 03:28] LABS: Basophils % 0.3 %; Eosinophils # 0.1 K/mcL (0.0-0.6); Hematocrit 30.1 % (37.5-50.1); Hemoglobin 10.7 g/dL (12.9-16.9); Immature Granulocytes % 0.3 % (0-4); Lymphocytes # 0.8 K/mcL (0.6-4.6); Mean Corpuscular HGB Conc 35.5 g/dL (31.6-35.5); Mean Corpuscular Volume 90.1 fL (83.0-100.0); Mean Platelet Volume 9.7 fL (9.4-12.4); Monocytes # 0.2 K/mcL (0.0-1.3); Monocytes % 2.8 %; Neutrophils # 6.1 K/mcL (1.6-8.9); Platelet Count 249 K/mcL (140-400); Red Blood Count 3.34 M/mcL (4.19-5.50); Red Cell Distribution Width 13.9 % (11.5-14.5); Segmented Neutrophils % 84.6 %
[2018-07-29 03:48] LABS: Albumin 1.6 g/dL (3.5-5.7); Calcium 7.3 mg/dL (8.6-10.3); Phosphorous 8.8 mg/dL (2.7-4.5); Potassium 3.8 mEq/L (3.5-5.1)
[2018-07-29] MEDS: Albuterol 2.5 MG/3 ML NEBULIZER IH SCH ×4 (04:11→23:02)
--- NOTE | 2018-07-29 09:23 | Internal Med Progress Note ---
<Joel Murrieta - Last Filed: 07/29/18 15:56> Hospitalist Progress Note - Encounter Date of Encounter: 07/29/18 - Exam Vitals: Temp Pulse Resp BP Pulse Ox 97.4 F L 78 18 145/93 97 07/29/18 14:50 07/29/18 14:50 07/29/18 15:52 07/29/18 14:50 07/29/18 15:52 - Assessment and Plan (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 Current Visit: No Status: Suspected (2) Atrial fibrillation Current Visit: No Status: Chronic (3) CAD (coronary artery disease) Current Visit: No Status: Chronic (4) Anasarca Current Visit: Yes Status: Chronic (5) Emphysema lung Current Visit: No Status: Chronic (6) Acute kidney injury superimposed on CKD Current Visit: Yes Status: Acute (7) Chronic systolic (congestive) heart failure Current Visit: No Status: Chronic (8) Diabetes mellitus Current Visit: Yes Status: Chronic (9) Nephrotic syndrome Current Visit: Yes Status: Chronic - Time Spent with Patient Total time spent is greater than 50% in coordination of care (as documented) at patient's floor/unit and/or counseling patient: Internal Medicine: Result - Labs CBC & Chem 7: 07/29/18 03:11 07/29/18 03:11 Labs: Short CBC 07/29/18 Range/Units 03:11 WBC 7.2 (4.3-11.1) K/mcL Hgb 10.7 L (12.9-16.9) g/dL Hct 30.1 L (37.5-50.1) % Plt Count 249 (140-400) K/mcL Neutrophils # 6.1 (1.6-8.9) K/mcL BMP 07/29/18 03:11 Sodium 130 L Potassium 3.8 Chloride 102 Carbon Dioxide 19 L BUN 107 H Creatinine 4.31 H Glucose 130 H Calcium 7.3 L Liver Function 07/29/18 Range/Units 03:11 Albumin 1.6 L (3.5-5.7) g/dL Consult Discharge Plan - Plan [facility]errals: [facility] [Primary Care Provider] - - Attending Attestation I examined this patient and my medical decision-making was reviewed with the Resident Physician on 07/29/18. I agree with the documented findings, disposition and treatment plan as described except to the extent set forth below. Mr Dumont is currently in observation for anasarca related to FSGS and nephrotic syndrome. He remains moderate to high risk. Mr Dumont is feeling OK. He has had some decrease in edema but still present. No fever or chills. at bedside. Exam alert Comfortable Mucus membranes dry Heart reg and not tachy No wheeze Abd soft Less edema today. I/P 1. Anasarca - continue diuresis 2. FSGS - continue prednisone treatment. 3. Nephrotic syndrome Further diagnoses and plan as above. <Soraya Bergeron R - Last Filed: 07/29/18 16:05> Hospitalist Progress Note - Encounter Date of Encounter: 07/29/18 Time of Encounter: 08:00 - Subjective Interval History: Pt is awake and pleasant on exam. He denies chest pain, SOB, abdominal pain, and increased swelling at this time. UE swelling has decreased and LE swelling appears about the same. Kidney US demonstrated a 5.1cm left renal cyst without hydronephrosis or other abnormalities. Pt denies requests at this time. He will be started on steroids per nephrology for a flare of his FSGS. - Exam Vitals: Temp Pulse Resp BP Pulse Ox 97.9 F 86 18 144/77 96 07/29/18 07:52 07/29/18 07:52 07/29/18 07:52 07/29/18 07:52 07/29/18 07:52 Exam: Constitutional - alert and pleasant, in NAD. HEENT - PERRL. EOMI. No obvious edema of face or neck. Neck non-tender to palpation without LAD. Cardio - irregular rhythm, normal rate, no audible murmurs. Respiratory - Lungs with mild wheezing throughout. No focal areas of consolidation or rales. Abdomen - sopft, nontender to palpation without rebound, guarding or rigidity. Scar from previous hernia repair without complications. Extremities - Pitting edema of bilateral hands 1+, decreased swelling of upper extremities from yesterday. Feet with mild edema. 2+ edema of bilateral legs. Skin - no visible rashes or skin breakdown. Neuro - a&o x3, follow commands. Good strength and sensation in all extremities. - Assessment and Plan (1) Anasarca Current Visit: Yes Status: Chronic Assessment and Plan: Due to volume overload and MAO on CKD, possibly prerenal due to CHF. Plan: Will Place on 1mg Bumex IV and hold PO. Nephrology following (2) Acute kidney injury superimposed on CKD Current Visit: Yes Status: Acute Assessment and Plan: Cr 06/22/18 1.90. Cr 4.31 now. Hx of CKD stage IV and FSGS - significant worsening for past week with 5lb wt gain Plan: Will monitor renal panel QD. Will place on IV Bumex for now. Admitting hospitalist discussed with Dr. Khadar Sheikh following Renal US today (3) Nephrotic syndrome Current Visit: Yes Status: Chronic Assessment and Plan: Hx FSGS s/p cardiac cath in January 2018 Increased swelling of extremities Kidney panel shows Cre 4.01 with u protein of 876, increased from visit in june Plan: IV Bumex for volume overload Nephro following Steroids (4) Atrial fibrillation Current Visit: No Status: Chronic Assessment and Plan: On Dig - level low here at 0.7 EKG shows afib with paced rhythm Plan: Digoxin Monitor levels and HR (5) CAD (coronary artery disease) Current Visit: No Status: Chronic Assessment and Plan: Continue home ASA 325 mg, Coreg, and statin. (6) Emphysema lung Current Visit: No Status: Chronic Assessment and Plan: CXR improved from previous Continue home symbicort PRN nebs but not in acute COPD exacerbation. (7) Diabetes mellitus Current Visit: Yes Status: Chronic Assessment and Plan: Hx of DM without insulin use Plan: Continue home Glipizide 2.5 mg SSI if needed while in hospital DVT Prophylaxis: Pt is ambulatory - Time Spent with Patient Total time spent is greater than 50% in coordination of care (as documented) at patient's floor/unit and/or counseling patient: Internal Medicine: Result - Labs CBC & Chem 7: 07/29/18 03:11 07/29/18 03:11 Labs: Short CBC 07/29/18 Range/Units 03:11 WBC 7.2 (4.3-11.1) K/mcL Hgb 10.7 L (12.9-16.9) g/dL Hct 30.1 L (37.5-50.1) % Plt Count 249 (140-400) K/mcL Neutrophils # 6.1 (1.6-8.9) K/mcL BMP 07/29/18 03:11 Sodium 130 L Potassium 3.8 Chloride 102 Carbon Dioxide 19 L BUN 107 H Creatinine 4.31 H Glucose 130 H Calcium 7.3 L Liver Function 07/29/18 Range/Units 03:11 Albumin 1.6 L (3.5-5.7) g/dL - Impressions Impressions Retroperitoneum Ultrasound 07/28/18 13:00 IMPRESSION: 1. No evidence of hydronephrosis. 2. 5.1 cm left renal cyst. 3. Prostatomegaly. D/ / Sonja Beckwith MD / Sonja Beckwith MD Interpreting Provider: Sonja Beckwith MD <Joel Murrieta A - Last Filed: 07/29/18 15:56> (2) Atrial fibrillation Qualifiers: Atrial fibrillation type: chronic Qualified Code(s): I48.2 - Chronic atrial fibrillation (3) CAD (coronary artery disease) Qualifiers: Coronary Disease-Associated Artery/Lesion type: [place] artery [place] vs. transplanted heart: [place] heart Associated angina: without angina Qualified Code(s): I25.10 - Atherosclerotic heart disease of [place] coronary artery without angina pectoris (5) Emphysema lung Qualifiers: Emphysema type: panlobular Qualified Code(s): J43.1 - Panlobular emphysema (8) Diabetes mellitus Qualifiers: Diabetes mellitus type: type 2 Diabetes mellitus bed bug exterminator insulin use: without bed bug exterminator use Diabetes mellitus complication status: without complication Qualified Code(s): E11.9 - Type 2 diabetes mellitus without complications <Soraya Bergeron R - Last Filed: 02/15/19 16:05> (4) Atrial fibrillation Qualifiers: Atrial fibrillation type: chronic Qualified Code(s): I48.2 - Chronic atrial fibrillation (5) CAD (coronary artery disease) Qualifiers: Coronary Disease-Associated Artery/Lesion type: [place] artery [place] vs. transplanted heart: [place] heart Associated angina: without angina Qualified Code(s): I25.10 - Atherosclerotic heart disease of [place] coronary artery without angina pectoris (6) Emphysema lung Qualifiers: Emphysema type: panlobular Qualified Code(s): J43.1 - Panlobular emphysema (7) Diabetes mellitus Qualifiers: Diabetes mellitus type: type 2 Diabetes mellitus usp insulin use: without bed bug exterminator use Diabetes mellitus complication status: without complication Qualified Code(s): E11.9 - Type 2 diabetes mellitus without complications
[2018-07-29] MEDS: Budesonide/Formoterol 160/4.5 1 PUFF INH IH SCH ×2 (09:40→23:01)
[2018-07-29] MEDS: Insulin LISPRO 300 UNITS/3 ML VIAL SQ SCH ×3 (09:52→17:04)
[2018-07-29] MEDS: Aspirin Enteric Coated 325 MG Tablet PO SCH (09:53)
[2018-07-29] MEDS: Doxycycline 100 MG CAPSULE PO SCH ×2 (09:53→20:12)
[2018-07-29] MEDS: Bumetanide 1 MG/4 ML VIAL IVP SCH ×2 (09:53→17:04)
[2018-07-29] MEDS: *HR* GlipiZIDE 5 MG TABLET PO SCH (09:53)
[2018-07-29] MEDS: predniSONE 20 MG TABLET PO SCH (09:53)
[2018-07-29] MEDS: *HR* Digoxin 0.125 MG TABLET PO SCH (09:53)
--- NOTE | 2018-07-29 15:33 | Nephrology Progress Note ---
Date of Encounter: 07/29/18 Time of Encounter: 15:30 - Assessment and Plan (1) Acute kidney injury superimposed on CKD Current Visit: No Status: Acute SCr noted worsening at 4.31, GFR 13 with diuretics Discussed at length the need for DEVELOPMENT GEOLOGIST if continued worsening in the next several days and pt is agreeable Continue to avoid nephrotoxins if possible (2) Nephrotic syndrome Current Visit: No Status: Chronic Continue current diuretic regimen for now Continue strict I/Os Continue fluid restriction (3) FSGS (focal segmental glomerulosclerosis) with nephrosis Current Visit: No Status: Suspected Biopsy proven, appears idiopathic with negative malignancy workup Agree with steroids resumed. Had good response previously Subjective Interval history: Intreim noted, pt seen and examined sitting up in chair alone. No new complaints, feels like edema slowly improving Objective - Vital Signs Vital signs: Vital Signs Temp Pulse Resp BP Pulse Ox 07/29/18 14:50 97.4 F L 78 16 145/93 96 07/29/18 10:46 97.3 F L 83 20 134/86 93 07/29/18 09:41 20 96 07/29/18 08:07 93 07/29/18 07:52 97.9 F 86 18 144/77 96 07/29/18 04:11 18 90 07/29/18 02:53 97.9 F 74 15 123/84 94 07/28/18 21:33 18 96 07/28/18 19:30 97.6 F 79 14 154/88 96 07/28/18 16:00 97.8 F 56 15 146/84 97 07/28/18 15:47 16 97 Intake and Output 07/28/18 07/29/18 07/29/18 23:59 07:59 15:59 Intake Total 240 / 240 240 / 240 1320 / 1320 Output Total 500 / 500 400 / 400 0 / 0 Balance -260 / -260 -160 / -160 1320 / 1320 Intake: Oral 240 / 240 240 / 240 1320 / 1320 Output: Urine 500 / 500 400 / 400 0 / 0 Other: Meal Dinner Lunch Percent of Meal Consumed 100% 100% # Bowel Movements 0 0 0 Weight 74.5 kg Blood Glucose* 126 181 264 Patient Weight 07/29/18 23:59 Weight 74.5 kg - General Appearance General appearance: Present: chronically ill, frail EENT: Present: ATNC, mucous membranes moist Neck: Present: no JVD, supple Respiratory: Present: clear Cardiology: Present: edema (LE and UE bilat), normal S1, normal S2 Gastrointestinal: Present: no tenderness, no guarding Integumentary: Present: warm and dry Neurologic: Present: no focal deficit Musculoskeletal: Present: no deformities Psychiatric: Present: mood/affect appropriate, cooperative - Lab 08/04/18 06:03 08/04/18 06:03 Most recent lab results Calcium 7.3 mg/dL (8.6-10.3) L 07/29/18 03:11 Phosphorus 8.8 mg/dL (2.7-4.5) H 07/29/18 03:11 Urine Creatinine 60 mg/dL 07/27/18 23:45 Urine Sodium 53.9 mEq/L 07/27/18 23:45 Urine Total Protein 876 mg/dL (1-14) H 07/27/18 23:45 Consult Discharge Plan - Plan [facility]errals: [facility] [Primary Care Provider] -
[2018-07-30] MEDS: Albuterol 2.5 MG/3 ML NEBULIZER IH SCH ×4 (05:24→21:50)
[2018-07-30 07:01] LABS: Hematocrit 30.4 % (37.5-50.1); Hemoglobin 10.3 g/dL (12.9-16.9); Mean Corpuscular HGB Conc 33.9 g/dL (31.6-35.5); Mean Corpuscular Hemoglobin 30.8 pg (28.0-33.3); Mean Platelet Volume 10.3 fL (9.4-12.4); Platelet Count 280 K/mcL (140-400); Red Blood Count 3.34 M/mcL (4.19-5.50); Red Cell Distribution Width 13.7 % (11.5-14.5)
[2018-07-30 07:20] LABS: Albumin 1.7 g/dL (3.5-5.7); Albumin/Globulin Ratio 0.7 (1.1-2.2); Bilirubin,Total 0.2 mg/dL (0.3-1.0); Calcium 7.2 mg/dL (8.6-10.3); Digoxin 0.7 ng/mL (0.8-2.0); Globulin 2.6 g/dL (2.4-3.5); Phosphorous 9.6 mg/dL (2.7-4.5); Potassium 3.6 mEq/L (3.5-5.1); Total Protein 4.3 g/dL (6.4-8.9)
[2018-07-30] MEDS: predniSONE 20 MG TABLET PO SCH (08:18)
[2018-07-30] MEDS: Insulin LISPRO 300 UNITS/3 ML VIAL SQ SCH ×3 (08:18→17:09)
[2018-07-30] MEDS: Bumetanide 1 MG/4 ML VIAL IVP SCH ×2 (08:18→17:10)
[2018-07-30] MEDS: Aspirin Enteric Coated 325 MG Tablet PO SCH (08:19)
[2018-07-30] MEDS: Doxycycline 100 MG CAPSULE PO SCH ×2 (08:19→20:18)
[2018-07-30] MEDS: *HR* GlipiZIDE 5 MG TABLET PO SCH (08:19)
--- NOTE | 2018-07-30 08:25 | Internal Med Progress Note ---
<Soraya Bergeron - Last Filed: 07/30/18 09:56> Hospitalist Progress Note - Encounter Date of Encounter: 07/30/18 Time of Encounter: 08:25 - Subjective Interval History: Pt is awake and pleasant on exam. He denies chest pain, SOB, abdominal pain, and increased swelling at this time. UE swelling continues to decrease. LE swelling mildly decreased. Kidney US demonstrated a 5.1cm left renal cyst without hydronephrosis or other abnormalities. Pt denies requests at this time. 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 Creatinine continues to increase with Bumex use but pt still has been urinating a good amount. - Exam Vitals: Temp Pulse Resp BP Pulse Ox 97.7 F 85 16 151/93 97 07/30/18 08:14 07/30/18 08:14 07/30/18 08:14 07/30/18 08:14 07/30/18 08:14 Exam: Constitutional - alert and pleasant, in NAD. HEENT - PERRL. EOMI. No obvious edema of face or neck. Neck non-tender to palpation without LAD. Cardio - irregular rhythm, normal rate, no audible murmurs. Respiratory - Lungs with mild wheezing throughout. No focal areas of consolidation or rales. Abdomen - sopft, nontender to palpation without rebound, guarding or rigidity. Scar from previous hernia repair without complications. Extremities - Pitting edema of bilateral hands 1+, decreased swelling of upper extremities from yesterday. Feet with mild edema. 2+ edema of bilateral legs. Skin - no visible rashes or skin breakdown. Neuro - a&o x3, follow commands. Good strength and sensation in all extremities. - Assessment and Plan (1) Anasarca Current Visit: Yes Status: Chronic Assessment and Plan: Due to volume overload and MAO on CKD, possibly prerenal due to CHF. Plan: Will Place on 1mg Bumex IV and hold PO. Nephrology following (2) Acute kidney injury superimposed on CKD Current Visit: Yes Status: Acute Assessment and Plan: Cr 06/22/18 1.90. Cr 5.10 now. Hx of CKD stage IV and FSGS - significant worsening for past week with 5lb wt gain Plan: Will monitor renal panel QD. Will place on IV Bumex for now. Admitting hospitalist discussed with Dr. Khadar Sheikh following Renal US today (3) Nephrotic syndrome Current Visit: Yes Status: Chronic Assessment and Plan: Hx FSGS s/p cardiac cath in January 2018 Increased swelling of extremities Kidney panel shows Cre 4.01 with u protein of 876, increased from visit in june Plan: IV Bumex for volume overload Nephro following Steroids (4) Atrial fibrillation Current Visit: No Status: Chronic Assessment and Plan: On Dig - level low here at 0.7 EKG shows afib with paced rhythm Plan: Digoxin Monitor levels and HR (5) CAD (coronary artery disease) Current Visit: No Status: Chronic Assessment and Plan: Continue home ASA 325 mg, Coreg, and statin. (6) Emphysema lung Current Visit: No Status: Chronic Assessment and Plan: CXR improved from previous Continue home symbicort PRN nebs but not in acute COPD exacerbation. (7) Diabetes mellitus Current Visit: Yes Status: Chronic Assessment and Plan: Hx of DM without insulin use Plan: Continue home Glipizide 2.5 mg SSI if needed while in hospital DVT Prophylaxis: Pt is ambulatory - Time Spent with Patient Total time spent is greater than 50% in coordination of care (as documented) at patient's floor/unit and/or counseling patient: Internal Medicine: Result - Labs CBC & Chem 7: 07/30/18 06:19 07/30/18 06:19 Labs: Short CBC 07/30/18 Range/Units 06:19 WBC 14.5 H D (4.3-11.1) K/mcL Hgb 10.3 L (12.9-16.9) g/dL Hct 30.4 L (37.5-50.1) % Plt Count 280 (140-400) K/mcL BMP 07/30/18 06:19 Sodium 132 L Potassium 3.6 Chloride 100 Carbon Dioxide 18 L BUN 118 H Creatinine 5.10 H Glucose 136 H Calcium 7.2 L Liver Function 07/30/18 Range/Units 06:19 Total Bilirubin 0.2 L (0.3-1.0) mg/dL AST 14 (13-39) Units/L ALT 9 (7-52) Units/L Alkaline Phosphatase 44 (34-104) Units/L Albumin 1.7 L (3.5-5.7) g/dL Consult Discharge Plan - Plan [facility]errals: [facility] [Primary Care Provider[facility] - <Joel Murrieta - Last Filed: 07/30/18 16:25> Hospitalist Progress Note - Encounter Date of Encounter: 07/30/18 - Exam Vitals: Temp Pulse Resp BP Pulse Ox 97.9 F 70 18 158/85 95 07/30/18 10:49 07/30/18 10:49 07/30/18 15:35 07/30/18 10:49 07/30/18 15:35 - Assessment and Plan (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 Current Visit: No Status: Suspected (2) Atrial fibrillation Current Visit: No Status: Chronic (3) CAD (coronary artery disease) Current Visit: No Status: Chronic (4) Anasarca Current Visit: Yes Status: Chronic (5) Emphysema lung Current Visit: No Status: Chronic (6) Acute kidney injury superimposed on CKD Current Visit: Yes Status: Acute (7) Chronic systolic (congestive) heart failure Current Visit: No Status: Chronic (8) Diabetes mellitus Current Visit: Yes Status: Chronic (9) Nephrotic syndrome Current Visit: Yes Status: Chronic - Time Spent with Patient Total time spent is greater than 50% in coordination of care (as documented) at patient's floor/unit and/or counseling patient: Internal Medicine: Result - Labs CBC & Chem 7: 07/30/18 06:19 07/30/18 06:19 Labs: Short CBC 07/30/18 Range/Units 06:19 WBC 14.5 H D (4.3-11.1) K/mcL Hgb 10.3 L (12.9-16.9) g/dL Hct 30.4 L (37.5-50.1) % Plt Count 280 (140-400) K/mcL BMP 07/30/18 06:19 Sodium 132 L Potassium 3.6 Chloride 100 Carbon Dioxide 18 L BUN 118 H Creatinine 5.10 H Glucose 136 H Calcium 7.2 L Liver Function 07/30/18 Range/Units 06:19 Total Bilirubin 0.2 L (0.3-1.0) mg/dL AST 14 (13-39) Units/L ALT 9 (7-52) Units/L Alkaline Phosphatase 44 (34-104) Units/L Albumin 1.7 L (3.5-5.7) g/dL - Attending Attestation I examined this patient and my medical decision-making was reviewed with the Resident Physician on 07/30/18. I agree with the documented findings, disposition and treatment plan as described except to the extent set forth below. Mr Dumont is currently in observation for anasarca related to FSGS. He remains moderate to high risk due to potential for worsening clinical status. Mr Dumont is feeling OK. No fever or chills. Less edema today. No CP or SOB. Tolerating steroids. Exam alert Comfortable Mucus membranes dry Heart reg and not tachy No wheeze abd soft Edema persists though seems better overall Moves all extremities I/P 1. Anasarca - slowly improving. 2. FSGS 3. CKD Further diagnoses and plan as above. <Soraya Bergeron - Last Filed: 07/30/18 09:56> (4) Atrial fibrillation Qualifiers: Atrial fibrillation type: chronic Qualified Code(s): I48.2 - Chronic atrial fibrillation (5) CAD (coronary artery disease) Qualifiers: Coronary Disease-Associated Artery/Lesion type: [place] artery [place] vs. 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 transplanted heart: [place] heart Associated angina: without angina Qualified Code(s): I25.10 - Atherosclerotic heart disease of [place] coronary artery w ithout angina pectoris (5) Emphysema lung Qualifiers: Emphysema type: panlobular Qualified Code(s): J43.1 - Panlobular emphysema (8) Diabetes mellitus Qualifiers: Diabetes mellitus type: type 2 Diabetes mellitus [employer] insulin use: without jail use Diabetes mellitus complication status: without complication Qualified Code(s): E11.9 - Type 2 diabetes mellitus without complications
[2018-07-30] MEDS: Budesonide/Formoterol 160/4.5 1 PUFF INH IH SCH ×2 (09:57→21:49)
--- NOTE | 2018-07-30 10:37 | Nephrology Progress Note ---
Date of Encounter: 07/30/18 Time of Encounter: 10:37 - Assessment and Plan (1) Acute kidney injury superimposed on CKD Current Visit: Yes Status: Acute Renal function continues to worsen despite prednisone. No acute need for dialysis, but poor prognosis regarding his renal function. (2) Chronic kidney disease, stage 4 (severe) Current Visit: Yes Status: Acute (3) Nephrotic syndrome Current Visit: Yes Status: Chronic Subjective Principal diagnosis: MAO on CKD Interval history: Patient without new complaint. at his bedside. Objective - Vital Signs Vital signs: Vital Signs Temp Pulse Resp BP Pulse Ox 07/30/18 08:14 97.7 F 85 16 151/93 97 07/30/18 02:50 97.7 F 74 16 162/82 97 07/29/18 23:02 16 97 07/29/18 18:52 98.0 F 81 16 133/80 97 07/29/18 15:52 18 97 07/29/18 14:50 97.4 F L 78 16 145/93 96 07/29/18 10:46 97.3 F L 83 20 134/86 93 Intake and Output 07/29/18 07/30/18 07/30/18 23:59 07:59 15:59 Intake Total 480 / 480 240 / 240 Output Total 100 / 100 Balance 480 / 480 140 / 140 Intake: Oral 480 / 480 240 / 240 Output: Urine 100 / 100 Other: Meal Dinner Percent of Meal Consumed 100% # Voids 2 1 # Bowel Movements 2 0 Weight 77.1 kg Blood Glucose* 252 156 Patient Weight 07/30/18 23:59 Weight 77.1 kg - General Appearance General appearance: Present: well-developed, well-nourished EENT: Present: ATNC Cardiology: Present: regular rate Neurologic: Present: alert and oriented x3 Psychiatric: Present: mood/affect appropriate - Lab 07/31/18 03:33 07/31/18 03:33 Most recent lab results Calcium 7.2 mg/dL (8.6-10.3) L 07/30/18 06:19 Phosphorus 9.6 mg/dL (2.7-4.5) H 07/30/18 06:19 Urine Creatinine 60 mg/dL 07/27/18 23:45 Urine Sodium 53.9 mEq/L 07/27/18 23:45 Urine Total Protein 876 mg/dL (1-14) H 07/27/18 23:45 Consult Discharge Plan - Plan [facility]errals: [facility] [Primary Care Provider] -
[2018-07-31 04:03] LABS: Hematocrit 28.1 % (37.5-50.1); Hemoglobin 9.9 g/dL (12.9-16.9); Mean Corpuscular HGB Conc 35.2 g/dL (31.6-35.5); Mean Corpuscular Hemoglobin 31.9 pg (28.0-33.3); Mean Corpuscular Volume 90.6 fL (83.0-100.0); Mean Platelet Volume 10.1 fL (9.4-12.4); Platelet Count 272 K/mcL (140-400); Red Cell Distribution Width 14.2 % (11.5-14.5)
[2018-07-31 04:23] LABS: Albumin 1.6 g/dL (3.5-5.7); Albumin/Globulin Ratio 0.7 (1.1-2.2); Bilirubin,Total 0.1 mg/dL (0.3-1.0); Calcium 6.8 mg/dL (8.6-10.3); Globulin 2.3 g/dL (2.4-3.5); Potassium 3.6 mEq/L (3.5-5.1); Total Protein 3.9 g/dL (6.4-8.9)
[2018-07-31] MEDS: Albuterol 2.5 MG/3 ML NEBULIZER IH SCH ×4 (04:32→22:18)
[2018-07-31] MEDS: Insulin LISPRO 300 UNITS/3 ML VIAL SQ SCH ×3 (07:56→16:52)
[2018-07-31] MEDS: *HR* GlipiZIDE 5 MG TABLET PO SCH (08:25)
[2018-07-31] MEDS: *HR* Digoxin 0.125 MG TABLET PO SCH (08:25)
[2018-07-31] MEDS: Doxycycline 100 MG CAPSULE PO SCH ×2 (08:25→20:37)
[2018-07-31] MEDS: Bumetanide 1 MG/4 ML VIAL IVP SCH (08:25)
[2018-07-31] MEDS: Aspirin Enteric Coated 325 MG Tablet PO SCH (08:25)
[2018-07-31] MEDS: predniSONE 20 MG TABLET PO SCH (08:25)
--- NOTE | 2018-07-31 08:43 | Internal Med Progress Note ---
<RubioSoraya R - Last Filed: 07/31/18 11:29> Hospitalist Progress Note - Encounter Date of Encounter: 07/31/18 Time of Encounter: 08:15 - Subjective Interval History: Pt is awake and pleasant on exam. Has no requests at this time. Swelling continues to improve. He states nephrology told him he would likely be in the hospital for a few more days to continue to monitor him. - Exam Vitals: Temp Pulse Resp BP Pulse Ox 97.7 F 84 16 155/96 95 07/31/18 07:36 07/31/18 07:36 07/31/18 07:36 07/31/18 07:36 07/31/18 07:36 Exam: Constitutional - alert and pleasant, in NAD. HEENT - PERRL. EOMI. No obvious edema of face or neck. Neck non-tender to palpation without LAD. Cardio - irregular rhythm, normal rate, no audible murmurs. Respiratory - Lungs with mild wheezing throughout. No focal areas of consolidation or rales. Abdomen - sopft, nontender to palpation without rebound, guarding or rigidity. Scar from previous hernia repair without complications. Extremities - Pitting edema of bilateral hands 1+. Feet with mild edema. 1+ ed rupert of bilateral legs. Edema continues to improve and ROM of the patients hands is also improving. Skin - no visible rashes or skin breakdown. Neuro - a&o x3, follow commands. Good strength and sensation in all extremities. - Assessment and Plan (1) Anasarca Current Visit: Yes Status: Chronic Assessment and Plan: Due to volume overload and MAO on CKD, possibly prerenal due to CHF. Plan: Will Place on 1mg Bumex IV and hold PO. Nephrology following (2) Acute kidney injury superimposed on CKD Current Visit: Yes Status: Acute Assessment and Plan: Cr 06/22/18 1.90. Cr 5.51 now. Hx of CKD stage IV and FSGS - significant worsening for past week with 5lb wt gain Plan: Will monitor renal panel QD. Will place on IV Bumex for now. Admitting hospitalist discussed with Dr. Khadar Shekih following Renal US showed a renal cyst without hydronephrosis (3) Nephrotic syndrome Current Visit: Yes Status: Chronic Assessment and Plan: Hx FSGS s/p cardiac cath in January 2018 Increased swelling of extremities Kidney panel shows Cre 4.01 with u protein of 876, increased from visit in june Plan: IV Bumex for volume overload Nephro following Steroids (4) Atrial fibrillation Current Visit: No Status: Chronic Assessment and Plan: On Dig - level low here at 0.7 EKG shows afib with paced rhythm Plan: Digoxin Monitor levels and HR (5) CAD (coronary artery disease) Current Visit: No Status: Chronic Assessment and Plan: Continue home ASA 325 mg, Coreg, and statin. (6) Emphysema lung Current Visit: No Status: Chronic Assessment and Plan: CXR improved from previous Continue home symbicort PRN nebs but not in acute COPD exacerbation. (7) Diabetes mellitus Current Visit: Yes Status: Chronic Assessment and Plan: Hx of DM without insulin use Plan: Continue home Glipizide 2.5 mg SSI if needed while in hospital DVT Prophylaxis: Pt is ambulatory - Time Spent with Patient Total time spent is greater than 50% in coordination of care (as documented) at patient's floor/unit and/or counseling patient: Internal Medicine: Result - Labs CBC & Chem 7: 07/31/18 03:33 07/31/18 03:33 Labs: Short CBC 07/31/18 Range/Units 03:33 WBC 14.7 H (4.3-11.1) K/mcL Hgb 9.9 L (12.9-16.9) g/dL Hct 28.1 L (37.5-50.1) % Plt Count 272 (140-400) K/mcL BMP 07/31/18 03:33 Sodium 133 L Potassium 3.6 Chloride 103 Carbon Dioxide 18 L BUN 128 H Creatinine 5.51 H Glucose 130 H Calcium 6.8 L Liver Function 07/31/18 Range/Units 03:33 Total Bilirubin 0.1 L (0.3-1.0) mg/dL AST 14 (13-39) Units/L ALT 9 (7-52) Units/L Alkaline Phosphatase 44 (34-104) Units/L Albumin 1.6 L (3.5-5.7) g/dL Consult Discharge Plan - Plan Referrals: [facility] [Primary Care Provider] - <Joel Murrieta - Last Filed: 07/31/18 15:54> Hospitalist Progress Note - Encounter Date of Encounter: 07/31/18 - Exam Vitals: Temp Pulse Resp BP Pulse Ox 97.7 F 84 16 155/96 95 07/31/18 07:36 07/31/18 07:36 07/31/18 15:16 07/31/18 07:36 07/31/18 15:16 - Assessment and Plan (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 Current Visit: No Status: Suspected (2) Atrial fibrillation Current Visit: No Status: Chronic (3) CAD (coronary artery disease) Current Visit: No Status: Chronic (4) Anasarca Current Visit: Yes Status: Chronic (5) Emphysema lung Current Visit: No Status: Chronic (6) Acute kidney injury superimposed on CKD Current Visit: Yes Status: Acute (7) Chronic systolic (congestive) heart failure Current Visit: No Status: Chronic (8) Diabetes mellitus Current Visit: Yes Status: Chronic (9) Nephrotic syndrome Current Visit: Yes Status: Chronic - Time Spent with Patient Total time spent is greater than 50% in coordination of care (as documented) at patient's floor/unit and/or counseling patient: Internal Medicine: Result - Labs CBC & Chem 7: 07/31/18 03:33 07/31/18 03:33 Labs: Short CBC 07/31/18 Range/Units 03:33 WBC 14.7 H (4.3-11.1) K/mcL Hgb 9.9 L (12.9-16.9) g/dL Hct 28.1 L (37.5-50.1) % Plt Count 272 (140-400) K/mcL BMP 07/31/18 03:33 Sodium 133 L Potassium 3.6 Chloride 103 Carbon Dioxide 18 L BUN 128 H Creatinine 5.51 H Glucose 130 H Calcium 6.8 L Liver Function 07/31/18 Range/Units 03:33 Total Bilirubin 0.1 L (0.3-1.0) mg/dL AST 14 (13-39) Units/L ALT 9 (7-52) Units/L Alkaline Phosphatase 44 (34-104) Units/L Albumin 1.6 L (3.5-5.7) g/dL - Attending Attestation I examined this patient and my medical decision-making was reviewed with the Resident Physician on 07/31/18. I agree with the documented findings, disposition and treatment plan as described except to the extent set forth below. Mr Dumont is currently admitted for anasarca and renal failure. He remains moderate to high risk due to potential for worsening clinical status. Mr Tim feels OK today. Thinks he is less swollen. No CP or SOB. No fever or chills. Slept OK. Exam Alert comfortable Mucus membranes dry Heart reg and not tachy No wheeze at this time Abd soft Edema still present I/P 1. Anasarca 2. FSGS 3. CKD - worsening renal function Further plan per renal service Further diagnoses and plan as above. <Soraya Bergeron - Last Filed: 07/31/18 11:29> (4) Atrial fibrillation Qualifiers: Atrial fibrillation type: chronic Qualified Code(s): I48.2 - Chronic atrial fibrillation (5) CAD (coronary artery disease) Qualifiers: Coronary Disease-Associated Artery/Lesion type: [place] artery [place] vs. 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 transplanted heart: [place] heart Associated angina: without angina Qualified Code(s): I25.10 - Atherosclerotic heart disease of [place] coronary artery witho ut angina pectoris (5) Emphysema lung Qualifiers: Emphysema type: panlobular Qualified Code(s): J43.1 - Panlobular emphysema (8) Diabetes mellitus Qualifiers: Diabetes mellitus type: type 2 Diabetes mellitus group home insulin use: without middle or intermediate school principal use Diabetes mellitus complication status: without complication Qualified Code(s): E11.9 - Type 2 diabetes mellitus without complications
[2018-07-31] MEDS: Budesonide/Formoterol 160/4.5 1 PUFF INH IH SCH ×2 (10:04→22:18)
--- NOTE | 2018-07-31 16:24 | Nephrology Progress Note ---
Date of Encounter: 07/31/18 Time of Encounter: 16:24 - Assessment and Plan (1) Acute kidney injury superimposed on CKD Current Visit: No Status: Acute Renal function continues to worsen despite prednisone. Could be secondary to excess diuresis. Will discontinue diuretics. Will give gentle fluids overnight. May need to consider mycophenolate. I did mention that if renal function doesn't improve he may need dialysis soon. No acute need for dialysis, but poor prognosis regarding his renal function. Adjust medications for renal function. Avoid nephrotoxins. (2) Chronic kidney disease, stage 4 (severe) Current Visit: Yes Status: Acute (3) Nephrotic syndrome Current Visit: No Status: Chronic Secondary to FSGS (4) Anemia Current Visit: No Status: Chronic Qualifiers: Anemia type: due to chronic kidney disease Chronic kidney disease stage: stage 3 (moderate) Qualified Code(s): N18.3 - Chronic kidney disease, stage 3 (moderate); D63.1 - Anemia in chronic kidney disease (5) Diabetes mellitus Current Visit: No Status: Chronic per primary team. 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 and family at his bedside. He thought his edema improved yesterday, but is slightly worse today. Objective - Vital Signs Vital signs: Vital Signs Temp Pulse Resp BP Pulse Ox 07/31/18 15:16 16 95 07/31/18 11:10 97.5 F L 61 16 120/74 96 07/31/18 10:06 16 95 07/31/18 07:36 97.7 F 84 16 155/96 95 07/31/18 04:32 16 97 07/31/18 03:24 97.6 F 84 14 145/71 97 07/30/18 23:58 97.7 F 82 16 153/94 94 07/30/18 21:50 16 96 07/30/18 18:39 97.7 F 74 14 135/84 96 07/30/18 17:11 96.8 F L 71 16 168/80 96 Intake and Output 07/31/18 07/31/1819 07:59 15:59 23:59 Intake Total 0 / 0 360 / 360 Output Total 400 / 400 Balance -400 / -400 360 / 360 Intake: Oral 0 / 0 360 / 360 Output: Urine 400 / 400 Other: Meal Breakfast Percent of Meal Consumed 100% # Bowel Movements 0 Weight 77.4 kg Blood Glucose* 93 79 Patient Weight 07/31/18 23:59 Weight 77.4 kg - General Appearance General appearance: Present: well-developed, well-nourished EENT: Present: ATNC Neck: Present: supple Cardiology: Present: edema, regular rate Integumentary: Present: warm and dry Neurologic: Present: alert and oriented x3 Musculoskeletal: Present: no cyanosis Psychiatric: Present: mood/affect appropriate - Lab 07/31/18 03:33 07/31/18 03:33 Most recent lab results Calcium 6.8 mg/dL (8.6-10.3) L 07/31/18 03:33 Phosphorus 9.6 mg/dL (2.7-4.5) H 07/30/18 06:19 Urine Creatinine 60 mg/dL 07/27/18 23:45 Urine Sodium 53.9 mEq/L 07/27/18 23:45 Urine Total Protein 876 mg/dL (1-14) H 07/27/18 23:45 Consult Discharge Plan - Plan Referrals: [facility] [Primary Care Provider] -
[2018-07-31] MEDS ORDERED: Sodium Bicarbonate 75 MEQ in 0.45 % Sodium Chloride 1,000 ML IVC SCH ×2 (19:45→20:00)
[2018-08-01] MEDS: Albuterol 2.5 MG/3 ML NEBULIZER IH SCH ×4 (03:45→22:40)
[2018-08-01 06:16] LABS: Hematocrit 28.9 % (37.5-50.1); Mean Corpuscular HGB Conc 34.6 g/dL (31.6-35.5); Mean Corpuscular Hemoglobin 31.7 pg (28.0-33.3); Mean Corpuscular Volume 91.7 fL (83.0-100.0); Mean Platelet Volume 10.2 fL (9.4-12.4); Platelet Count 209 K/mcL (140-400); Red Blood Count 3.15 M/mcL (4.19-5.50); Red Cell Distribution Width 14.4 % (11.5-14.5)
[2018-08-01 06:50] LABS: Alanine Aminotransferase 9 Units/L (7-52); Albumin 1.5 g/dL (3.5-5.7); Albumin/Globulin Ratio 0.7 (1.1-2.2); Alkaline Phosphatase 36 Units/L (34-104); Aspartate Amino Transferase 15 Units/L (13-39); Bilirubin,Total 0.2 mg/dL (0.3-1.0); Blood Urea Nitrogen > 130 mg/dL (8-23); Calcium 6.6 mg/dL (8.6-10.3); Carbon Dioxide 18 mEq/L (23-29); Chloride 103 mEq/L (98-107); Globulin 2.3 g/dL (2.4-3.5); Glucose 95 mg/dL (70-105); Potassium 3.7 mEq/L (3.5-5.1); Sodium 136 mEq/L (136-145); Total Protein 3.8 g/dL (6.4-8.9); eGFR For Non-African Americans 10 (> 60)
[2018-08-01] MEDS: Insulin LISPRO 300 UNITS/3 ML VIAL SQ SCH ×3 (08:12→17:50)
[2018-08-01] MEDS: *HR* GlipiZIDE 5 MG TABLET PO SCH (08:25)
[2018-08-01] MEDS: Aspirin Enteric Coated 325 MG Tablet PO SCH (08:26)
[2018-08-01] MEDS: Doxycycline 100 MG CAPSULE PO SCH (08:27)
[2018-08-01] MEDS: predniSONE 20 MG TABLET PO SCH (08:27)
--- NOTE | 2018-08-01 09:29 | Internal Med Progress Note ---
<Soraya Bergeron - Last Filed: 08/01/18 13:16> Hospitalist Progress Note - Encounter Date of Encounter: 08/01/18 Time of Encounter: 09:29 - Subjective Interval History: Pt is awake and pleasant on exam. Has no requests at this time. Kidney function has been worsening. Bumex was stopped yesterday but BUN increased overnight. Sp milka with Dr. Beck, who states the patient will receive a temporary dialysis catheter today. - Exam Vitals: Temp Pulse Resp BP Pulse Ox 97.5 F L 79 14 112/73 94 08/01/18 06:38 08/01/18 06:38 08/01/18 06:38 08/01/18 06:38 08/01/18 06:38 Exam: Constitutional - alert and pleasant, in NAD. HEENT - PERRL. EOMI. No obvious edema of face or neck. Neck non-tender to palpation without LAD. Cardio - irregular rhythm, normal rate, no audible murmurs. Respiratory - Lungs with mild wheezing throughout. No focal areas of consolidation or rales. Abdomen - sopft, nontender to palpation without rebound, guarding or rigidity. Scar from previous hernia repair without complications. Extremities - Pitting edema of bilateral hands 1+. Feet with mild edema. 1+ edema of bilateral legs. Edema improved from admission and ROM of the patients hands is also improving. Skin - no visible rashes or skin breakdown. Neuro - a&o x3, follow commands. Good strength and sensation in all extremities. - Assessment and Plan (1) Anasarca Current Visit: Yes Status: Chronic Assessment and Plan: Due to volume overload and MAO on CKD, possibly prerenal due to CHF. Plan: Bumex held due to worsening kidney function Continue steroids Placement of dialysis cath today with dialysis Nephrology following (2) Acute kidney injury superimposed on CKD Current Visit: No Status: Acute Assessment and Plan: Cr 06/22/18 1.90. Cr 5.46 now with BUN >130. Hx of CKD stage IV and FSGS - significant worsening for past week with 5lb wt gain Plan: Will monitor renal panel QD. Bumex held last night due to worsening kidney fxn Nephro following Renal US showed a renal cyst without hydronephrosis Possible dialysis today (3) Nephrotic syndrome Current Visit: No Status: Chronic Assessment and Plan: Hx FSGS s/p cardiac cath in January 2018 Increased swelling of extremities Kidney panel shows Cre 4.01 with u protein of 876, increased from visit in june Plan: As above (4) Atrial fibrillation Current Visit: No Status: Chronic Assessment and Plan: On Dig - level low here at 0.7 EKG shows afib with paced rhythm Plan: Digoxin Monitor levels and HR (5) CAD (coronary artery disease) Current Visit: No Status: Chronic Assessment and Plan: Continue home ASA 325 mg, Coreg, and statin. (6) Emphysema lung Current Visit: No Status: Chronic Assessment and Plan: CXR improved from previous Continue home symbicort PRN nebs but not in acute COPD exacerbation. (7) Diabetes mellitus Current Visit: No Status: Chronic Assessment and Plan: Hx of DM without insulin use Plan: Continue home Glipizide 2.5 mg SSI if needed while in hospital DVT Prophylaxis: Pt is ambulatory - Time Spent with Patient Total time spent is greater than 50% in coordination of care (as documented) at patient's floor/unit and/or counseling patient: Internal Medicine: Result - Labs CBC & Chem 7: 08/01/18 05:57 08/01/18 05:57 Labs: Short CBC 08/01/18 Range/Units 05:57 WBC 12.4 H (4.3-11.1) K/mcL Hgb 10.0 L (12.9-16.9) g/dL Hct 28.9 L (37.5-50.1) % Plt Count 209 (140-400) K/mcL BMP 08/01/18 05:57 Sodium 136 Potassium 3.7 Chloride 103 Carbon Dioxide 18 L BUN > 130 H Creatinine 5.46 H Glucose 95 Calcium 6.6 L Liver Function 08/01/18 Range/Units 05:57 Total Bilirubin 0.2 L (0.3-1.0) mg/dL AST 15 (13-39) Units/L ALT 9 (7-52) Units/L Alkaline Phosphatase 36 (34-104) Units/L Albumin 1.5 L (3.5-5.7) g/dL Consult Discharge Plan - Plan [facility]errals: [facility] [Primary Care Provider[facility] - <Joel Murrieta - Last Filed: 08/01/18 13:47> Hospitalist Progress Note - Encounter Date of Encounter: 08/01/18 - Exam Vitals: Temp Pulse Resp BP Pulse Ox 97.4 F L 88 15 148/84 95 08/01/18 10:34 08/01/18 10:34 08/01/18 10:34 08/01/18 10:34 08/01/18 10:34 - Assessment and Plan (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 Current Visit: No Status: Suspected (2) Atrial fibrillation Current Visit: No Status: Chronic (3) CAD (coronary artery disease) Current Visit: No Status: Chronic (4) Anasarca Current Visit: Yes Status: Chronic (5) Emphysema lung Current Visit: No Status: Chronic (6) Acute kidney injury superimposed on CKD Current Visit: No Status: Acute (7) Chronic systolic (congestive) heart failure Current Visit: No Status: Chronic (8) Diabetes mellitus Current Visit: No Status: Chronic (9) Nephrotic syndrome Current Visit: No Status: Chronic - Time Spent with Patient Total time spent is greater than 50% in coordination of care (as documented) at patient's floor/unit and/or counseling patient: Internal Medicine: Result - Labs CBC & Chem 7: 08/01/18 05:57 08/01/18 05:57 Labs: Short CBC 08/01/18 Range/Units 05:57 WBC 12.4 H (4.3-11.1) K/mcL Hgb 10.0 L (12.9-16.9) g/dL Hct 28.9 L (37.5-50.1) % Plt Count 209 (140-400) K/mcL BMP 08/01/18 05:57 Sodium 136 Potassium 3.7 Chloride 103 Carbon Dioxide 18 L BUN > 130 H Creatinine 5.46 H Glucose 95 Calcium 6.6 L Liver Function 08/01/18 Range/Units 05:57 Total Bilirubin 0.2 L (0.3-1.0) mg/dL AST 15 (13-39) Units/L ALT 9 (7-52) Units/L Alkaline Phosphatase 36 (34-104) Units/L Albumin 1.5 L (3.5-5.7) g/dL - ABG Interpretation ABG results: PT/INR, D-dimer PT 8.7 Seconds (9.4-12.1) L 08/01/18 10:23 - Impressions Impressions Chest X-Ray 08/01/18 12:06 IMPRESSION: 1. Placement of a large bore right internal jugular vein catheter with the tip located at the SVC/right atrial junction. 2. Questionable right apical pneumothorax versus skin fold. Repeat chest radiograph is recommended for further evaluation. D/ / 08/01/2018 12:43:47 Marcelino Arreola MD / johan Interpreting Provider: Marcelino Arreola MD Chest X-Ray 08/01/18 12:45 IMPRESSION: 1. No evidence of a right-sided pneumothorax. The skin fold in the right lung apex has improved. 2. Stable small bilateral pleural effusions with associated bibasilar atelectasis and pulmonary vascular congestion. D/ / 08/01/2018 13:12:58 Marcelino Arreola MD / awilda Interpreting Provider: Marcelino Arreola MD - Attending Attestation I examined this patient and my medical decision-making was reviewed with the Resident Physician on 08/01/18. I agree with the documented findings, disposition and treatment plan as described except to the extent set forth below Mr Dumont is currently admitted for acute on chronic renal failure. He remains moderate to high risk due to potential for worsening renal failure and clinical status. Mr Dumont had dialysis catheter placed today. No fever or chills. To have short dialysis later today. Seems to be doing OK with it. More dyspneic today. Exam Alert Comfortable at rest Mucus membranes dry Heart distant and not tachy Wheeze heard Edema present Abd soft I/P 1. Acute on chronic renal failure - to begin dialysis today 2. FSGS 3. Anasarca Further diagnoses and plan as above. <Soraya Bergeron R - Last Filed: 08/01/18 13:16> (4) Atrial fibrillation Qualifiers: Atrial fibrillation type: chronic Qualified Code(s): I48.2 - Chronic atrial fibrillation (5) CAD (coronary artery disease) Qualifiers: Coronary Disease-Associated Artery/Lesion type: [place] artery [place] vs. 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 transplanted heart: [place] heart Associated angina: without angina Qualified Code(s): I25.10 - Atherosclerotic heart disease of [place] coronary artery without angina pectoris (5) Emphysema lung Qualifiers: Emphysema type: panlobular Qualified Code(s): J43.1 - Panlobular emphysema (8) Diabetes mellitus Qualifiers: Diabetes mellitus type: type 2 Diabetes mellitus mcfp insulin use: without termite control servicer use Diabetes mellitus complication status: without complication Qualified Code(s): E11.9 - Type 2 diabetes mellitus without complications
[2018-08-01] MEDS ORDERED: Heparin 1,000 UNITS/500 mL 500 ML ONE (10:27)
[2018-08-01 11:23] LABS: INR 0.8
[2018-08-01 11:24] LABS: Prothrombin Time 8.7 Seconds (9.4-12.1)
[2018-08-01] MEDS: Budesonide/Formoterol 160/4.5 1 PUFF INH IH SCH ×2 (11:30→22:40)
[2018-08-01] MEDS ORDERED: *HR* Heparin 5,000 UNIT/ML VIAL ONE (11:51)
--- NOTE | 2018-08-01 11:57 | IR Procedure Note ---
Date of procedure: 08/01/18 Consent Obtained: Written consent Timeout: Correct patient and procedure verified, Correct site verified, Time out performed, Skin prep completed Local anesthetic: Lidocaine 1% Indications: renal failure Procedure Performed: temp HDC Was there an medical office assistant present: No Site/Technique: rt IJ access, tip in RA Results/Findings: CXR to verify position Estimated blood loss (cc): 0 Complications: None; Tolerated procedure well Post Procedure Treatment Plan: dialisys Specimen: none
[2018-08-01] MEDS ORDERED: 0.9 % Sodium Chloride 250 ML IVC PRN (13:50)
[2018-08-01] MEDS ORDERED: *HR* Heparin 10,000 UNIT/10 ML VIAL IV PRN ×2 (13:50)
[2018-08-01] MEDS ORDERED: 0.9 % Sodium Chloride 1,000 ML PRIME SCH (14:00)
[2018-08-01 15:14] LABS: Hepatitis B Surface Antibody < 3.10 mIU/mL
[2018-08-01 15:23] LABS: Hepatitis B Surface Antigen Nonreactive (Nonreactive)
[2018-08-01] MEDS ORDERED: 0.9 % Sodium Chloride 1,000 ML ONE (17:01)
--- NOTE | 2018-08-01 17:31 | Nephrology Progress Note ---
Date of Encounter: 08/01/18 Time of Encounter: 12:00 - Assessment and Plan (1) Acute kidney injury superimposed on CKD Current Visit: No Status: Acute SCr remains poor at 5.46, GFR 10, will proceed with HD today Continue to avoid nephrotoxins if possible Continue renal diet (2) Nephrotic syndrome Current Visit: No Status: Chronic Due to FSGS with prednisone started Continue strict I/Os Continue fluid restriction (3) Anemia Current Visit: No Status: Chronic hgb noted at 11, will monitor Qualifiers: Anemia type: due to chronic kidney disease Chronic kidney disease stage: stage 3 (moderate) Qualified Code(s): N18.3 - Chronic kidney disease, stage 3 (moderate); D63.1 - Anemia in chronic kidney disease (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 Current Visit: No Status: Suspected As above (5) Chronic kidney disease, stage 4 (severe) Current Visit: Yes Status: Acute (6) Diabetes mellitus Current Visit: No Status: Chronic Qualifiers: Diabetes mellitus type: type 2 Diabetes mellitus prison insulin use: without prison use Diabetes mellitus complication status: without complication Qualified Code(s): E11.9 - Type 2 diabetes mellitus without complications Subjective Principal diagnosis: MAO on CKD Interval history: Pt seen and examined while about to undergo temp HD catheter placement, in good spirits Objective - Vital Signs Vital signs: Vital Signs Temp Pulse Resp BP Pulse Ox 08/01/18 16:48 96.9 F L 18 138/108 08/01/18 16:30 121/97 08/01/18 16:15 129/77 08/01/18 16:00 143/87 08/01/18 15:45 143/72 08/01/18 15:30 134/91 08/01/18 15:15 139/117 08/01/18 15:00 97.5 F L 16 177/77 08/01/18 10:34 97.4 F L 88 15 148/84 95 08/01/18 06:38 97.5 F L 79 14 112/73 94 08/01/18 03:45 16 92 08/01/18 03:30 97.5 F L 76 16 118/62 93 07/31/18 22:44 97.9 F 65 16 119/74 94 07/31/18 22:18 18 97 07/31/18 19:03 97.8 F 80 14 144/81 97 Intake and Output 08/01/18 08/01/18 08/01/18 07:59 15:59 23:59 Intake Total 0 / 0 840 / 840 1075 / 1075 Output Total 550 / 550 250 / 250 187 / 1870 Balance -550 / -550 590 / 590 -795 / -795 Intake: IV Fluids 1075 / 1075 Sodium Bicarbonate 75 MEQ In 0. 1075 / 1075 45% Sodium Chloride 1000 Ml 1000 Ml 1,000 ML @ 75 mls/hr IVC .[id number] VERONICA Rx#:[id number] Oral 0 / 0 240 / 240 Intake, Rinseback and Flushes 600 / 600 Output: Urine 550 / 550 250 / 250 Total Dialysis (HD) Output 1869 Other: Meal Lunch Percent of Meal Consumed 100% # Bowel Movements 0 Weight 78.4 kg Blood Glucose* 81 97 Hemodialysis Net Fluid Removed 971 1270 (mL) Patient Weight 08/01/18 23:59 Weight 78.4 kg - General Appearance General appearance: Present: chronically ill, fatigue EENT: Present: ATNC, mucous membranes moist Neck: Present: no JVD, supple Respiratory: Present: clear Cardiology: Present: edema (UE and LE bilat), normal S1, normal S2 Gastrointestinal: Present: no tenderness, no guarding Integumentary: Present: warm and dry Neurologic: Present: no focal deficit Musculoskeletal: Present: no deformities Psychiatric: Present: mood/affect appropriate, cooperative - Lab 08/04/18 06:03 08/04/18 06:03 Most recent lab results Calcium 6.6 mg/dL (8.6-10.3) L 08/01/18 05:57 Phosphorus 9.6 mg/dL (2.7-4.5) H 07/30/18 06:19 Urine Creatinine 60 mg/dL 07/27/18 23:45 Urine Sodium 53.9 mEq/L 07/27/18 23:45 Urine Total Protein 876 mg/dL (1-14) H 07/27/18 23:45 Consult Discharge Plan - Plan [facility]errals: [facility] [Primary Care Provider] -
[2018-08-01] MEDS ORDERED: *HR* Heparin 5,000 UNIT/ML VIAL IVP PRN ×2 (18:08)
[2018-08-01] MEDS ORDERED: *HR* Heparin 5,000 UNIT/ML VIAL IVP ONE (18:08)
[2018-08-01] MEDS ORDERED: Heparin 25,000 UNIT/500 ML D5W 25,000 UNIT/500 ML BAG IVC SCH (18:15)
[2018-08-01 19:25] LABS: Hematocrit 31.1 % (37.5-50.1); Mean Corpuscular HGB Conc 35.4 g/dL (31.6-35.5); Mean Corpuscular Hemoglobin 32.1 pg (28.0-33.3); Mean Corpuscular Volume 90.7 fL (83.0-100.0); Mean Platelet Volume 10.3 fL (9.4-12.4); Platelet Count 247 K/mcL (140-400); Red Blood Count 3.43 M/mcL (4.19-5.50); Red Cell Distribution Width 14.5 % (11.5-14.5)
[2018-08-01 19:33] LABS: INR 0.9; Prothrombin Time 9.7 Seconds (9.4-12.1)
[2018-08-02 03:13] LABS: Hematocrit 27.4 % (37.5-50.1); Hemoglobin 9.6 g/dL (12.9-16.9); Mean Corpuscular Hemoglobin 32.1 pg (28.0-33.3); Mean Corpuscular Volume 91.6 fL (83.0-100.0); Mean Platelet Volume 10.6 fL (9.4-12.4); Platelet Count 212 K/mcL (140-400); Red Blood Count 2.99 M/mcL (4.19-5.50); Red Cell Distribution Width 14.3 % (11.5-14.5)
[2018-08-02 03:37] LABS: Calcium 6.4 mg/dL (8.6-10.3); Potassium 3.7 mEq/L (3.5-5.1)
[2018-08-02] MEDS: Albuterol 2.5 MG/3 ML NEBULIZER IH SCH ×4 (04:00→23:00)
--- NOTE | 2018-08-02 07:18 | Internal Med Progress Note ---
<Soraya Bergeron R - Last Filed: 08/02/18 18:18> Hospitalist Progress Note - Encounter Date of Encounter: 08/02/18 Time of Encounter: 07:18 - Subjective Interval History: Pt began dialysis last night about it had to be terminated early secondary to chest pain on the patient. Patient was scheduled to have dialysis again today but again had a terminated due to chest pain, hypotension, and respiratory acidosis. He was given an amp of bicarbonate and 250 mL of fluid which caused resolution in this. Dialysis catheter may need to be retracted slightly as the patient had been going into A. fib during dialysis and the catheter may be irritating his atrial tissue. He has had some response with dialysis due to his fluid overload and electrolyte abnormalities but will need continued dialysis for the time being. Cardiology was also consulted due to the patient's atrial fibrillation and chest pains. Pt has no requests at this time. - Exam Vitals: Temp Pulse Resp BP Pulse Ox 97.7 F 73 18 153/88 97 08/02/18 07:09 08/02/18 07:09 08/02/18 07:09 08/02/18 07:09 08/02/18 07:09 Exam: Constitutional - alert and pleasant, in NAD. HEENT - PERRL. EOMI. No obvious edema of face or neck. Neck non-tender to palpation without LAD. Cardio - irregular rhythm, normal rate, no audible murmurs. Respiratory - Lungs with mild wheezing throughout. No focal areas of consolidation or rales. Abdomen - sopft, nontender to palpation without rebound, guarding or rigidity. Scar from previous hernia repair without complications. Extremities - decreased edema over extremities with initiation of dialysis Skin - no visible rashes or skin breakdown. Neuro - a&o x3, follow commands. Good strength and sensation in all extremities. - Assessment and Plan (1) Anasarca Current Visit: Yes Status: Chronic Assessment and Plan: Due to volume overload and MAO on CKD, possibly prerenal due to CHF. Plan: Bumex held due to worsening kidney function Continue steroids Dialysis per nephro Nephrology following (2) Acute kidney injury superimposed on CKD Current Visit: No Status: Acute Assessment and Plan: Cr 06/22/18 1.90. Cr 5.46 now with BUN >130. Hx of CKD stage IV and FSGS - significant worsening for past week with 5lb wt gain Plan: Will monitor renal panel QD. Bumex held last night due to worsening kidney fxn Nephro following Renal US showed a renal cyst without hydronephrosis Dialysis (3) Nephrotic syndrome Current Visit: No Status: Chronic Assessment and Plan: Hx FSGS s/p cardiac cath in January 2018 Increased swelling of extremities Kidney panel shows Cre 4.01 with u protein of 876, increased from visit in june Plan: As above (4) Chest pain Current Visit: Yes Status: Acute Assessment and Plan: Chest pain with dialysis x2 trials Both times with afib Likely secondary to afib from irritation with dialysis catheter Cardio consulted Will likely retract dialysis catheter tomorrow before trial of dialysis again (5) Atrial fibrillation Current Visit: No Status: Chronic Assessment and Plan: On Dig - level low here at 0.7 EKG shows afib with paced rhythm Plan: Digoxin Monitor levels and HR Cardio consulted (6) CAD (coronary artery disease) Current Visit: No Status: Chronic Assessment and Plan: Continue home ASA 325 mg, Coreg, and statin. (7) Emphysema lung Current Visit: No Status: Chronic Assessment and Plan: CXR improved from previous Continue home symbicort PRN nebs but not in acute COPD exacerbation. (8) Diabetes mellitus Current Visit: No Status: Chronic Assessment and Plan: Hx of DM without insulin use Plan: Continue home Glipizide 2.5 mg SSI if needed while in hospital DVT Prophylaxis: Pt is ambulatory - Time Spent with Patient Total time spent is greater than 50% in coordination of care (as documented) at patient's floor/unit and/or counseling patient: Internal Medicine: Result - Labs CBC & Chem 7: 08/02/18 09:45 08/02/18 02:50 Labs: Short CBC 08/01/18 08/02/18 Range/Units 18:08 02:50 WBC 12.8 H 11.9 H (4.3-11.1) K/mcL Hgb 11.0 L 9.6 L (12.9-16.9) g/dL Hct 31.1 L 27.4 L (37.5-50.1) % Plt Count 247 212 (140-400) K/mcL BMP 08/02/18 02:50 Sodium 135 L Potassium 3.7 Chloride 101 Carbon Dioxide 19 L BUN 121 H Creatinine 4.74 H Glucose 130 H Calcium 6.4 L - ABG Interpretation ABG results: PT/INR, D-dimer PT 9.7 Seconds (9.4-12.1) 08/01/18 18:08 - Impressions Impressions Guidance Ultrasound 08/01/18 00:00 IMPRESSION: Successful ultrasound guided non-tunneled right jugular hemodialysis catheter placement. D/ / 08/01/2018 15:53:26 Wendy Gamez MD / thomas Interpreting Provider: Wendy Gamez MD Insertion Non-Tunneled Catheter 08/01/18 00:00 IMPRESSION: Successful ultrasound guided non-tunneled right jugular hemodialysis catheter placement. D/ / 08/01/2018 15:53:26 Wendy Gamez MD / thomas Interpreting Provider: Wendy Gamez MD Chest X-Ray 08/01/18 12:06 IMPRESSION: 1. Placement of a large bore right internal jugular vein catheter with the tip located at the SVC/right atrial junction. 2. Questionable right apical pneumothorax versus skin fold. Repeat chest radiograph is recommended for further evaluation. D/ / 08/01/2018 12:43:47 Marcelino Arreola MD / [facility] Interpreting Provider: Marcelino Arreola MD Chest X-Ray 08/01/18 12:45 IMPRESSION: 1. No evidence of a right-sided pneumothorax. The skin fold in the right lung apex has improved. 2. Stable small bilateral pleural effusions with associated bibasilar atelectasis and pulmonary vascular congestion. 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 Current Visit: No Status: Suspected (2) Atrial fibrillation Current Visit: No Status: Chronic (3) CAD (coronary artery disease) Current Visit: No Status: Chronic (4) Anasarca Current Visit: Yes Status: Chronic (5) Emphysema lung Current Visit: No Status: Chronic (6) Acute kidney injury superimposed on CKD Current Visit: No Status: Acute (7) Chronic systolic (congestive) heart failure Current Visit: No Status: Chronic (8) Diabetes mellitus Current Visit: No Status: Chronic (9) Nephrotic syndrome Current Visit: No Status: Chronic - Time Spent with Patient Total time spent is greater than 50% in coordination of care (as documented) at patient's floor/unit and/or counseling patient: Internal Medicine: Result - Labs CBC & Chem 7: 08/02/18 09:45 08/02/18 02:50 Labs: Short CBC 08/01/18 08/02/18 08/02/18 Range/Units 18:08 02:50 09:45 WBC 12.8 H 11.9 H (4.3-11.1) K/mcL Hgb 11.0 L 9.6 L 10.1 L (12.9-16.9) g/dL Hct 31.1 L 27.4 L 29.0 L (37.5-50.1) % Plt Count 247 212 (140-400) K/mcL BMP 08/02/18 02:50 Sodium 135 L Potassium 3.7 Chloride 101 Carbon Dioxide 19 L BUN 121 H Creatinine 4.74 H Glucose 130 H Calcium 6.4 L - ABG Interpretation ABG results: PT/INR, D-dimer PT 9.7 Seconds (9.4-12.1) 08/01/18 18:08 - Attending Attestation I examined this patient and my medical decision-making was reviewed with the Resident Physician on 08/02/18. I agree with the documented findings, disposition and treatment plan as described except to the extent set forth below. Mr Dumont is currently admitted for acute on chronic renal failure and anasarca. He remains moderate to high risk due to potential for worsening clinical status. Mr Dumont developed chest pain and hypotension during dialysis. He is now on 2N. No pain now. Had similar episode yesterday but not as bad. No fever or chills. Exam alert Comfortable now Mucus membranes dry Heart irreg and not tachy No wheeze abd soft Less edema I/P 1. Renal failure - per nephro 2. Chest pain and a fib - cardiology consulted. 3. anasarca 4. FSGS Further diagnoses and plan as above. <Soraya Bergeron R - Last Filed: 08/02/18 18:18> (4) Chest pain Qualifiers: Chest pain type: unspecified Qualified Code(s): R07.9 - Chest pain, unspecified (5) Atrial fibrillation Qualifiers: Atrial fibrillation type: paroxysmal Qualified Code(s): I48.0 - Paroxysmal atrial fibrillation (6) CAD (coronary artery disease) Qualifiers: Coronary Disease-Associated Artery/Lesion type: [place] artery [place] vs. transplanted heart: [place] heart Associated angina: without angina Qualified Code(s): I25.10 - Atherosclerotic heart disease of [place] coronary artery without angina pectoris (7) Emphysema lung Qualifiers: Emphysema type: panlobular Qualified Code(s): J43.1 - Panlobular emphysema (8) Diabetes mellitus Qualifiers: Diabetes mellitus type: type 2 Diabetes mellitus terminal worker insulin use: without long-term use Diabetes mellitus complication status: without complication Qualified Code(s): E11.9 - Type 2 diabetes mellitus without complications <Joel Murrieta A - Last Filed: 08/02/18 18:31> (2) Atrial fibrillation Qualifiers: Atrial fibrillation type: chronic Qualified Code(s): I48.2 - Chronic atrial fibrillation (3) CAD (coronary artery disease) Qualifiers: Coronary Disease-Associated Artery/Lesion type: [place] artery [place] vs. transplanted heart: [place] heart Associated angina: without angina Qualified Code(s): I25.10 - Atherosclerotic heart disease of [place] coronary artery without angina pectoris (5) Emphysema lung Qualifiers: Emphysema type: panlobular Qualified Code(s): J43.1 - Panlobular emphysema (8) Diabetes mellitus Qualifiers: Diabetes mellitus type: type 2 Diabetes mellitus terminal worker insulin use: without terminal worker use Diabetes mellitus complication status: without complication Qualified Code(s): E11.9 - Type 2 diabetes mellitus without complications
[2018-08-02] MEDS: Insulin LISPRO 300 UNITS/3 ML VIAL SQ SCH ×3 (07:31→17:13)
[2018-08-02] MEDS: *HR* Digoxin 0.125 MG TABLET PO SCH ×2 (07:49→10:55)
[2018-08-02] MEDS: Aspirin Enteric Coated 325 MG Tablet PO SCH (07:50)
[2018-08-02] MEDS: *HR* GlipiZIDE 5 MG TABLET PO SCH (07:50)
[2018-08-02] MEDS: predniSONE 20 MG TABLET PO SCH (07:50)
[2018-08-02] MEDS ORDERED: *HR* Heparin 10,000 UNIT/10 ML VIAL IV PRN ×3 (08:31→10:28)
[2018-08-02] MEDS ORDERED: 0.9 % Sodium Chloride 250 ML IVC PRN ×2 (08:31→10:28)
[2018-08-02] MEDS ORDERED: Sodium Bicarbonate 50 MEQ/50 ML VIAL IVP ONE ×2 (09:45→10:28)
[2018-08-02] MEDS ORDERED: 0.9 % Sodium Chloride 250 ML IVC ONE ×2 (09:51→10:28)
[2018-08-02 10:04] LABS: Hemoglobin 10.1 g/dL (12.9-16.9)
[2018-08-02] MEDS ORDERED: *HR* Dextrose 50 % in Water (Syg) 50 ML SYRINGE IVP PRN (10:28)
[2018-08-02] MEDS ORDERED: Ondansetron 4 MG/2 ML VIAL IVP PRN (10:28)
[2018-08-02] MEDS ORDERED: D5% in Water 1,000 ML IVC PRN (10:28)
[2018-08-02] MEDS ORDERED: Acetaminophen 325 MG TABLET PO PRN (10:28)
[2018-08-02] MEDS ORDERED: Naloxone 0.4 MG/ML INJ IVP PRN (10:28)
[2018-08-02] MEDS ORDERED: Dextrose Gel 15 GM/37.5 ML TUBE PO PRN ×2 (10:28)
[2018-08-02] MEDS ORDERED: 0.9 % Sodium Chloride 1,000 ML PRIME SCH (10:28)
[2018-08-02] MEDS: Budesonide/Formoterol 160/4.5 1 PUFF INH IH SCH ×2 (11:31→23:00)
--- NOTE | 2018-08-02 13:14 | Cardiology Consult Note ---
<Braxton Blanco - Last Filed: 08/02/18 13:12> Date of Encounter: 08/02/18 Time of Encounter: 13:10 Assessment and Plan (1) Chest pain Current Visit: Yes Status: Acute C/o chest pain and syncope with dialysis. EKG shows atrial fibrillation. PVC. HR 66bpm. H/o 2V CABG in 2018- we will order records. Check TTE. Check PPM/AICD. Qualifiers: Chest pain type: unspecified Qualified Code(s): R07.9 - Chest pain, unspecified (2) Atrial fibrillation Current Visit: No Status: Chronic Patient with known history of PAF seen to have rate controlled afib during his stay. Avg HR 72 bpm. Telemetry review shows rate controlled afib. No afib with RVR. Occasional pacing seen. No VT or pauses. No findings to account for symptoms during dialysis. Do not suspect it is due to afib. Continue current rate controlling meds. On carvedilol and digoxin. States his field naturalist has not placed him back on termite helper AC secondary to anemia. He is pending colonoscopy. Ideally he should be on snf AC with coumadin. Discussed increased risk of CVA with patient and . Currently with right IJ that he is having issues with bleeding. Fluctuations of Hgb noted, may be due to CKD. Can consider coumadin once anemia work-up completed. Qualifiers: Atrial fibrillation type: paroxysmal Qualified Code(s): I48.0 - Paroxysmal atrial fibrillation (3) CHF (congestive heart failure) Current Visit: Yes Status: Acute H/o chronic systolic CHF. Acute on chronic CHF this admission with worsening CKD. TTE 05/26/18- EF 45-50%. Indeterminate diastolic dysfunction. RV mildly dilated. Severe YENIFER. Mild to moderate MR. Fluid management per nephrology. Continue low sodium diet. Qualifiers: Heart failure type: combined systolic and diastolic Heart failure chron icity: acute on chronic Qualified Code(s): I50.43 - Acute on chronic combined systolic (congestive) and diastolic (congestive) heart failure (4) CAD (coronary artery disease) Current Visit: No Status: Chronic S/p 2V CABG in 2018. Reports [place] and PCI prior to CABG. Follows at [facility] with Dr. Ledbetter. Continue asa, statin, and bb. Qualifiers: Coronary Disease-Associated Artery/Lesion type: [place] artery [place] vs. transplanted heart: [place] heart Associated angina: without angina Qualified Code(s): I25.10 - Atherosclerotic heart disease of [place] coronary artery without angina pectoris (5) Acute kidney injury superimposed on CKD Current Visit: No Status: Acute Now on dialysis, unfortunately he is not tolerating well. B/p and HR appears to be stable. Discussion w patient/family: The assessment and plan as outlined above was discussed with the patient and/or family members who expressed understanding and agreement. All questions were answered. Thank you for involving us in the care of your patient. Please call with any questions. History of Present Illness Consult date: 08/02/18 Requesting physician: Lurdes Arias Consult reason: atrial fibrillation, inability to tolerate dialysis Chief complaint: Edema in hands and feet, CP, SOB, syncope with dialysis History of present illness: Mr. Dumont is a 73 year old male with past medical history significant for CAD s/p 2V CABG in 2012 at [facility], chronic systolic CHF, PPM, atrial fibrillation, worsening CKD, HTN, HLD. he presented with the complaint of increasing edema in his hands and feet. Cardiology consulted due to patient not tolerating dialysis with afib. Nephrology following. Due to worsening kidney disease he was started on hemodial ysis yesterday. A right IJ was placed. Yesterday he tolerated one and a half hours of dialysis before developing chest discomfort and SOB. Today a rapid response was called during dialysis after he developed chest pain, SOB, and syncope shortly after starting dialysis. He reports known PAF. He says he is probably in afib 60% of the time. he can feel palpitations. He is currently rate controlled. States he is not on AC due to anemia after starting AC prior to his CABG last year. He is pending col onscopy out-pt for evaluation of his anemia. Rapid response documentation reviewed. He was noted to have b/p 139/59, HR 79, and glucose 133 during the event. Past Med Surg Social Fam HX - Past Medical History Medical history: atrial fibrillation, cardiomyopathy, CHF, coronary artery disease, hypertension, renal disease Additional medical history: gout Psychiatric history: no psych history - Past Surgical History Surgical History: coronary bypass (CABG), herniorrhaphy, pacemaker/AICD Additional surgical history: bowel resection - Social History Smoking Status: Never smoker Smokeless Tobacco Status: No Alcohol use: none Drug use: none - Family History Father Hx Family Cardiac Disorders: Yes ([place]) Grandfather Hx Family Cardiac Disorders: Yes Medications and Allergies Albuterol Neb [Proventil Neb] 2.5 mg IH Q6HR PRN 05/27/18 [History] Allopurinol [Zyloprim 100 MG] 100 mg PO DAILY 05/27/18 [History] Bumetanide [Bumex] 1 mg PO TID 05/27/18 [History] Carvedilol [Coreg] 25 mg PO BID 05/27/18 [History] Colchicine [Colcrys] 0.6 mg PO DAILY PRN 05/27/18 [History] Docusate [Colace] 200 mg PO DAILY 05/27/18 [History] Ferrous Sulfate [Iron] 325 mg PO DAILY 05/27/18 [History] Pravastatin Sodium [Pravachol] 80 mg PO HS 05/27/18 [History] metOLazone [Zaroxolyn] 5 mg PO DAILY 05/27/18 [History] Digoxin [Lanoxin] 0.125 mg PO QOD 06/17/18 [History] Albuterol Sulfate [Proair Hfa] 2 puff IN Q6H PRN 07/28/18 [History] Ascorbic Acid [Vitamin C] 500 mg PO DAILY 07/28/18 [History] Aspirin 162 mg PO DAILY 07/28/18 [History] Budesonide/Formoterol 160/4.5 [Symbicort 160/4.5] 1 puff IH BIDR 07/28/18 [History] Doxycycline 100 mg PO BID 07/28/18 [History] Psyllium Husk/Aspartame [Metamucil Powder] 10 gm PO DAILY PRN 07/28/18 [History] Spironolactone [Aldactone] 50 mg PO DAILY 07/28/18 [History] glipiZIDE [Glucotrol] 2.5 mg PO DAILY 07/28/18 [History] Allergy/AdvReac Type Severity Reaction Status Date / Time meperidine [From Demerol] Allergy Hives Verified 05/25/18 12:28 All Systems Review: The remainder of the systems were reviewed and are negative Physical Examination Vital Signs, Last 4 Hours Temp Pulse Resp BP Pulse Ox 08/02/18 10:36 97.8 F 65 18 125/85 100 08/02/18 10:02 97.3 F L 18 139/56 08/02/18 09:56 137/59 08/02/18 09:36 137/59 08/02/18 09:25 155/90 General: Conversant, No Apparent Distress HEENT: Atraumatic, Normocephaly, Mucus Membranes Moist, Other (Right IJ intact) Neck: Normal carotid pulses Cardiac: Other (Irregular) Lungs: Normal Breath Sounds, No Wheeze, Rales, Rhonchi Neuro: Alert and responsive, No focal deficits noted Abdomen: Soft, Non-Tender Skin: No rashes noted on visualized skin Musculoskeletal: No Chest Wall Tenderness Extremities: No Clubbing, No Cyanosis, Normal Pulses, Other (2+ pedal and ankle edema.) Results 08/02/18 09:45 08/02/18 02:50 Lab Results 08/01/18 08/01/18 08/02/18 18:08 18:08 02:50 WBC 12.8 H 11.9 H Hgb 11.0 L 9.6 L Hct 31.1 L 27.4 L Plt Count 247 212 INR 0.9 Sodium Potassium Chloride Carbon Dioxide BUN Creatinine Glucose Calcium 08/02/18 08/02/18 02:50 09:45 WBC Hgb 10.1 L Hct 29.0 L Plt Count INR Sodium 135 L Potassium 3.7 Chloride 101 Carbon Dioxide 19 L BUN 121 H Creatinine 4.74 H Glucose 130 H Calcium 6.4 L - Imaging and Cardiology Echo: report reviewed - EKG Interpretation EKG results cardiology: personally reviewed Consult Discharge Plan - Plan [facility]errals: [facility] [Primary Care Provider] - <Ortiz Card - Last Filed: 08/02/18 17:12> Date of Encounter: 08/02/18 - Attending Attestation Patient was seen and evaluated independently by me. Findings, assessment and plan were discussed at length with patient, questions answered. Agree with nurse practitioner's/resident's documentation. Addition as follows, Consulted for cp and LOC during newly HD d2. 73 yoCM ho CABGx2 2017 without angina, HFrEF EF 45%, mod MR, chronic afib off A/C due to anemia of unclear etiology, s/p PPM, CKD. P/w worening arm and leg edema. MAO on CKD, started temp HD yesterday and had general weakness and mild chest discomfort with UF 1.8L at baseline BP. Chest pressure again today with LOC w/o focal neurological signs shortly after HD initiation with sig reduction of diastolic BP c/w baseline. Prelim ICD check no events, no pauses or prolonged high rate. A: Syncope and chest pain, likely due to global hypoperfusion caused by relative low BP on newly initiated dialysis s/p CABG, no angina at baseline HFrEF Chronic Afib not on A/C due to anemia s/p PPM/ICD MAO on CKD P: reduce HD flow rate TTE will need anticoagulation when able Ortiz Card MD, PhD Assessment and Plan Discussion w patient/family: The assessment and plan as outlined above was discussed with the patient and/or family members who expressed understanding and agreement. All questions were answered. Thank you for involving us in the care of your patient. Please call with any questions. History of Present Illness History of present illness: Mr. Dumont is a 73 year old male All Systems Review: The remainder of the systems were reviewed and are negative Physical Examination Vital Signs, Last 4 Hours Temp Pulse Resp BP Pulse Ox 08/02/18 16:35 98.0 F 67 18 114/45 100 Results 08/02/18 09:45 08/02/18 02:50 Lab Results 08/01/18 08/01/18 08/02/18 18:08 18:08 02:50 WBC 12.8 H 11.9 H Hgb 11.0 L 9.6 L Hct 31.1 L 27.4 L Plt Count 247 212 INR 0.9 Sodium Potassium Chloride Carbon Dioxide BUN Creatinine Glucose Calcium 08/02/18 08/02/18 02:50 09:45 WBC Hgb 10.1 L Hct 29.0 L Plt Count INR Sodium 135 L Potassium 3.7 Chloride 101 Carbon Dioxide 19 L BUN 121 H Creatinine 4.74 H Glucose 130 H Calcium 6.4 L
--- NOTE | 2018-08-02 13:58 | Event Note ---
Date of Encounter: 08/02/18 Time of Encounter: 13:57 - Cardiology Event Note Device check completed for unresponsiveness during dialysis. Patient had medtronic single chamber ICD placed in 2011.
[2018-08-02] MEDS ORDERED: Perflutren Lipid Microsphere 1.3 ML in 0.9 % Sodium Chloride 8.7 ML IVP ONE (17:26)
--- NOTE | 2018-08-02 18:22 | Nephrology Progress Note ---
Date of Encounter: 08/02/18 Time of Encounter: 10:00 - Assessment and Plan (1) Acute kidney injury superimposed on CKD Current Visit: No Status: Acute Unable to continue HD 2 days in a row due to cardiac events, cardio eval recommended Continue to avoid nephrotoxins if possible Lytes stable (2) Nephrotic syndrome Current Visit: No Status: Chronic Continue steroids for FSGS Strict I/Os advised Fluid restriction advised consider venous scan for UE bilat to rule out DVT (3) Anemia Current Visit: No Status: Chronic Hgb stable between 10-11, will monitor Qualifiers: Qualified Code(s): N18.3 - Chronic kidney disease, stage 3 (moderate); D63.1 - Anemia in chronic kidney disease (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 Pt also experienced similar sxs the day prior at HD with Afib noted (on heparin gtt). Objective - Vital Signs Vital signs: Vital Signs Temp Pulse Resp BP Pulse Ox 08/02/18 16:35 98.0 F 67 18 114/45 100 08/02/18 10:36 97.8 F 65 18 125/85 100 08/02/18 10:02 97.3 F L 18 139/56 08/02/18 09:56 137/59 08/02/18 09:36 137/59 08/02/18 09:25 155/90 08/02/18 09:10 145/82 08/02/18 08:55 138/87 08/02/18 08:40 97.3 F L 18 157/87 08/02/18 07:09 97.7 F 73 18 153/88 97 08/02/18 04:00 19 97 08/02/18 03:47 97.8 F 72 18 155/94 99 08/01/18 23:58 97.6 F 83 16 150/81 95 08/01/18 22:40 18 95 08/01/18 20:32 98 F 76 16 132/80 98 Intake and Output 08/02/18 08/02/18 08/02/18 07:59 15:59 23:59 Intake Total 175 / 175 720 / 720 320 / 320 Output Total 225 / 225 1254 / 1254 Balance -50 / -50 -534 / -534 320 / 320 Intake: IV Fluids 175 / 175 Heparin 25,000 UNIT/500 ML D5W 175 / 175 25,000 unit In 500 ml @ 14 UNIT /KG/HR 21.952 mls/hr IVC . [id number] [facility] Rx#:[id number] Oral 120 / 120 320 / 320 Intake, Rinseback and Flushes 600 / 600 Output: Urine 225 / 225 260 / 260 Total Dialysis (HD) Output 994 / 994 Other: Meal Lunch Percent of Meal Consumed 30% Weight 80.3 kg 77.6 kg Blood Glucose* 94 148 154 Hemodialysis Net Fluid Removed 394 (mL) Patient Weight 08/02/18 23:59 Weight 77.6 kg - General Appearance General appearance: Present: chronically ill, frail EENT: Present: ATNC, mucous membranes moist Neck: Present: no JVD, supple Cardiology: Present: edema (LE improved significantly but still with persistet UE edema bilat), normal S1, normal S2 Dialysis Vascular Access: Venous Catheter (temp) Gastrointestinal: Present: no tenderness, no guarding Integumentary: Present: warm and dry Neurologic: Present: no focal deficit Musculoskeletal: Present: no deformities Psychiatric: Present: mood/affect appropriate, cooperative - Lab 08/02/18 09:45 08/02/18 02:50 Most recent lab results Calcium 6.4 mg/dL (8.6-10.3) L 08/02/18 02:50 Phosphorus 9.6 mg/dL (2.7-4.5) H 07/30/18 06:19 Urine Creatinine 60 mg/dL 07/27/18 23:45 Urine Sodium 53.9 mEq/L 07/27/18 23:45 Urine Total Protein 876 mg/dL (1-14) H 07/27/18 23:45 Consult Discharge Plan - Plan [facility]errals: [facility] [Primary Care Provider] -
[2018-08-03] MEDS: Albuterol 2.5 MG/3 ML NEBULIZER IH SCH ×4 (03:33→21:40)
[2018-08-03 05:43] LABS: Hematocrit 28.1 % (37.5-50.1); Hemoglobin 9.9 g/dL (12.9-16.9); Mean Corpuscular HGB Conc 35.2 g/dL (31.6-35.5); Mean Corpuscular Volume 90.9 fL (83.0-100.0); Mean Platelet Volume 10.5 fL (9.4-12.4); Platelet Count 215 K/mcL (140-400); Red Blood Count 3.09 M/mcL (4.19-5.50)
[2018-08-03 06:17] LABS: Potassium 3.8 mEq/L (3.5-5.1)
--- NOTE | 2018-08-03 08:50 | Internal Med Progress Note ---
<Tiffani Dixon - Last Filed: 08/03/18 10:08> Hospitalist Progress Note - Encounter Date of Encounter: 08/03/18 - Exam Vitals: Temp Pulse Resp BP Pulse Ox 97.3 F L 73 18 161/94 95 08/03/18 07:08 08/03/18 07:08 08/03/18 09:49 08/03/18 07:08 08/03/18 09:49 - Assessment and Plan (1) Atrial fibrillation Current Visit: No Status: Chronic (2) CAD (coronary artery disease) Current Visit: No Status: Chronic (3) Anasarca Current Visit: Yes Status: Chronic (4) Nephrotic syndrome Current Visit: No Status: Chronic (5) Emphysema lung Current Visit: No Status: Chronic (6) Chronic systolic (congestive) heart failure Current Visit: No Status: Chronic (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 Current Visit: No Status: Suspected (8) Acute kidney injury superimposed on CKD Current Visit: No Status: Acute (9) Diabetes mellitus Current Visit: No Status: Chronic - Time Spent with Patient Total time spent is greater than 50% in coordination of care (as documented) at patient's floor/unit and/or counseling patient: Internal Medicine: Result - Labs CBC & Chem 7: 08/03/18 05:20 08/03/18 05:20 Labs: Short CBC 08/03/18 Range/Units 05:20 WBC 12.4 H (4.3-11.1) K/mcL Hgb 9.9 L (12.9-16.9) g/dL Hct 28.1 L (37.5-50.1) % Plt Count 215 (140-400) K/mcL BMP 08/03/18 05:20 Sodium 135 L Potassium 3.8 Chloride 101 Carbon Dioxide 22 L BUN 110 H Creatinine 4.37 H Glucose 103 Calcium 7.0 L - ABG Interpretation ABG results: PT/INR, D-dimer PT 9.7 Seconds (9.4-12.1) 08/01/18 18:08 Consult Discharge Plan - Plan [facility]errals: [facility] [Primary Care Provider] - - Attending Attestation I examined this patient and my medical decision-making was reviewed with the Resident Physician Dr Bergeron. I agree with the documented findings, disposition and treatment plan as described except to the extent set forth below. Mr Dumont is currently admitted for acute on chronic renal failure and anasarca. He was found to be in Afib with hypotension during first HD session. Mr Dumont is awake with family at bedside. He no longer has chest pain or palpitations. no sob. He is feeling very anxious about going back to HD and felt very anxious while there previously. gen- alert, awake,appears stated age eyes- pupils equal round cv- reg rate and irreg/irreg rhythm, normal s1,s2, no murmurs appreciated, angel ing edema to knees bl +3 and bl hands/forearms +2 lungs- ctabl, no wheezing, rhonchi or crackles in ant/lat peña, diminished bl bases abd- soft, non tender, non distended, + bs neuro- AAOx3 1. MAO on CKD (stage unknown)- HD as per nephro 2. Anasarca 2/2 Nephrotic syndrome 2/2 FSGS- nephro following, steroids, fluid restriction, prelim UE US reviewed and neg for clot 3 Chest pain may have been 2/2 Afib in HD, Hx cabg 2018, now resolved pain and rate controlled Paroxysmal afib - cards following, echo pending, device interrogation by cards, he was not on correction AC at home due to anemia and is pending outpt cscope, holding full AC at this time due to bleeding from RIJ site and anemia, cont ASA 4. Acute on Chronic Diastolic CHF- fluid management as per nephro Further diagnoses and plan as noted by resident <Soraya Bergeron R - Last Filed: 08/03/18 13:14> Hospitalist Progress Note - Encounter Date of Encounter: 08/03/18 Time of Encounter: 08:50 - Subjective Interval History: Pt pleasant but tired appearing this morning. He has not had any problems since the attempt at dialysis yesterday. He is unsure of when his next attempt at dialysis will be but he requests something for anxiety before dialysis next time as he has been anxious during his previous two treatments and he is afraid this is contributing to his symptoms. Cardio echo is unchanged from his previous with an EF of 45%. B/L US of UE was negative for both superficial and deep venous thromboses. Interrogation of his pacemaker shows a functioning device. Cardio has signed off. Awaiting further dialysis per nephro. - Exam Vitals: Temp Pulse Resp BP Pulse Ox 97.3 F L 73 18 161/94 93 08/03/18 07:08 08/03/18 07:08 08/03/18 07:08 08/03/18 07:08 08/03/18 07:08 Exam: Constitutional - alert and pleasant, in NAD. HEENT - PERRL. EOMI. No obvious edema of face or neck. Neck non-tender to palpation without LAD. Cardio - irregular rhythm, normal rate, no audible murmurs. Respiratory - Lungs with mild wheezing throughout. No focal areas of consolidation or rales. Abdomen - sopft, nontender to palpation without rebound, guarding or rigidity. Scar from previous hernia repair without complications. Extremities - Increased edema of B/L UE with 2+ pitting edema. Increased nonpitting edema of his B/L lower extremities. Skin - no visible rashes or skin breakdown. Neuro - a&o x3, follow commands. Good strength and sensation in all extremities. - Assessment and Plan (1) Anasarca Current Visit: Yes Status: Chronic Assessment and Plan: Due to volume overload and MAO on CKD, possibly prerenal due to CHF. Plan: Bumex held due to worsening kidney function Continue steroids Dialysis per nephro - will add prn ativan prior to tx to see if it alleviates his chest pain Nephrology following (2) Acute kidney injury superimposed on CKD Current Visit: No Status: Acute Assessment and Plan: Cr 06/22/18 1.90. Cr 4.37 now with BUN 110. Hx of CKD stage IV and FSGS - significant worsening for past week with 5lb wt gain Plan: Will monitor renal panel QD. Bumex held last night due to worsening kidney fxn Nephro following Renal US showed a renal cyst without hydronephrosis Dialysis (3) Nephrotic syndrome Current Visit: No Status: Chronic Assessment and Plan: Hx FSGS s/p cardiac cath in January 2018 Increased swelling of extremities Kidney panel shows Cre 4.01 with u protein of 876, increased from visit in june Plan: As above (4) Chest pain Current Visit: Yes Status: Acute Assessment and Plan: Chest pain with dialysis x2 trials Both times with afib Likely secondary to afib from irritation with dialysis catheter Cardio consulted Echo unchanged from previous, pacer working, afib rate controlled - cardio has signed off Will likely retract dialysis catheter tomorrow before trial of dialysis again Ativan prn prior to dialysis will also be initiated (5) Atrial fibrillation Current Visit: No Status: Chronic Assessment and Plan: On Dig - level low here at 0.7 EKG shows afib with paced rhythm Plan: Digoxin Monitor levels and HR Cardio consulted - they state it continues to be rate controlled and have signed off as a cause of his chest pain (6) CAD (coronary artery disease) Current Visit: No Status: Chronic Assessment and Plan: Continue home ASA 325 mg, Coreg, and statin. (7) Emphysema lung Current Visit: No Status: Chronic Assessment and Plan: CXR improved from previous Continue home symbicort PRN nebs but not in acute COPD exacerbation. (8) Diabetes mellitus Current Visit: No Status: Chronic Assessment and Plan: Hx of DM without insulin use Plan: Continue home Glipizide 2.5 mg SSI if needed while in hospital DVT Prophylaxis: Pt is ambulatory Not fully anticoagulated due to hx of anemia, bleeding and current oozing from dialysis cath site Pt takes full aspirin daily - Time Spent with Patient Total time spent is greater than 50% in coordination of care (as documented) at patient's floor/unit and/or counseling patient: Internal Medicine: Result - Labs CBC & Chem 7: 08/03/18 05:20 08/03/18 05:20 Labs: Short CBC 08/02/18 08/03/18 Range/Units 09:45 05:20 WBC 12.4 H (4.3-11.1) K/mcL Hgb 10.1 L 9.9 L (12.9-16.9) g/dL Hct 29.0 L 28.1 L (37.5-50.1) % Plt Count 215 (140-400) K/mcL BMP 08/03/18 05:20 Sodium 135 L Potassium 3.8 Chloride 101 Carbon Dioxide 22 L BUN 110 H Creatinine 4.37 H Glucose 103 Calcium 7.0 L - ABG Interpretation ABG results: PT/INR, D-dimer PT 9.7 Seconds (9.4-12.1) 08/01/18 18:08 <Tiffani Dixon M - Last Filed: 08/03/18 10:08> (1) Atrial fibrillation Qualifiers: Atrial fibrillation type: chronic Qualified Code(s): I48.2 - Chronic atrial fibrillation (2) CAD (coronary artery disease) Qualifiers: Coronary Disease-Associated Artery/Lesion type: [place]all artery [place] vs. transplanted heart: marshall heart Associated angina: without angina Qualified Code(s): I25.10 - Atherosclerotic heart disease of [place] coronary artery without angina pectoris (5) Emphysema lung Qualifiers: Emphysema type: panlobular Qualified Code(s): J43.1 - Panlobular emphysema (9) Diabetes mellitus Qualifiers: Diabetes mellitus type: type 2 Diabetes mellitus long distance operator insulin use: without long distance operator use Diabetes mellitus complication status: without complication Qualified Code(s): E11.9 - Type 2 diabetes mellitus without complications <Soraya Bergeron R - Last Filed: 08/03/18 13:14> (4) Chest pain Qualifiers: Chest pain type: unspecified Qualified Code(s): R07.9 - Chest pain, unspeci fied (5) Atrial fibrillation Qualifiers: Atrial fibrillation type: chronic Qualified Code(s): I48.2 - Chronic atrial fibrillation (6) CAD (coronary artery disease) Qualifiers: Coronary Disease-Associated Artery/Lesion type: [place] artery [place] vs. transplanted heart: marshall heart Associated angina: without angina Qualified Code(s): I25.10 - Atherosclerotic heart disease of [place] coronary artery without angina pectoris (7) Emphysema lung Qualifiers: Emphysema type: panlobular Qualified Code(s): J43.1 - Panlobular emphysema (8) Diabetes mellitus Qualifiers: Diabetes mellitus type: type 2 Diabetes mellitus long distance operator insulin use: without long distance operator use Diabetes mellitus complication status: without complication Qualified Code(s): E11.9 - Type 2 diabetes mellitus without complications
[2018-08-03] MEDS: Insulin LISPRO 300 UNITS/3 ML VIAL SQ SCH ×3 (08:54→16:47)
[2018-08-03] MEDS: *HR* GlipiZIDE 5 MG TABLET PO SCH (08:55)
[2018-08-03] MEDS: predniSONE 20 MG TABLET PO SCH (08:55)
[2018-08-03] MEDS: Aspirin Enteric Coated 325 MG Tablet PO SCH (08:55)
--- NOTE | 2018-08-03 08:59 | Electrocardiograph Report ---
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
[2018-08-03] MEDS: Budesonide/Formoterol 160/4.5 1 PUFF INH IH SCH ×2 (09:48→21:40)
[2018-08-03] MEDS ORDERED: *HR* LORazepam 0.5 MG TABLET PO PRN (11:22)
--- NOTE | 2018-08-03 12:02 | Event Note ---
Date of Encounter: 08/03/18 Time of Encounter: 12:00 - Cardiology Event Note Previous EF on TTE 05/2018 45-50%. Repeat TTE EF 45%--unchanged. AICD interrogated yesterday 08/02, no events were noted, normal functioning device. In regards to A-Fib, as previously stated, can consider coumadin once anemia work-up completed. Cardiology signing off. Reconsult PRN. Recommend follow-up with his established [facility]er in 2-3 weeks.
--- NOTE | 2018-08-03 22:54 | Nephrology Progress Note ---
Date of Encounter: 08/03/18 Time of Encounter: 12:00 - Assessment and Plan (1) Acute kidney injury superimposed on CKD Current Visit: No Status: Acute SCr slightly better due to HD sessions at 4.37, GFR 13 Given no cardiac event noted, will attempt UF tomorrow for 2 hours with UF goal of 2-3kg as tolerated with anti-anxiolytic prior Continue to avoid nephrotoxins if possible (2) Nephrotic syndrome Current Visit: No Status: Chronic Edema siginificant, hopefully UF tomorrow will be successful Continue prednsione, would likely need for 12 weeks including taper to off Continue fluid restriction Continue strict I/Os (3) Anemia Current Visit: No Status: Chronic hgb noted at 9.9, will monitor Qualifiers: Anemia type: due to chronic kidney disease Chronic kidney disease stage: stage 3 (moderate) Qualified Code(s): N18.3 - Chronic kidney disease, stage 3 (moderate); D63.1 - Anemia in chronic kidney disease (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 Current Visit: No Status: Suspected As above (5) Chronic kidney disease, stage 4 (severe) Current Visit: Yes Status: Acute (6) Diabetes mellitus Current Visit: No Status: Chronic Qualifiers: Diabetes mellitus type: type 2 Diabetes mellitus technician terminal and repeater insulin use: without technician terminal and repeater use Diabetes mellitus complication status: without complication Qualified Code(s): E11.9 - Type 2 diabetes mellitus without complications Subjective Principal diagnosis: MAO on CKD Interval history: Pt seen and examined with at bedside very concerned on worsening edema in UE bilat with seeping fluids and also edema on abdominal area. Pt believes he may have been very anxious during HD sessions and now requests anti-anxiolytic for the session tomorrow. Objective - Vital Signs Vital signs: Vital Signs Temp Pulse Resp BP Pulse Ox 08/03/18 21:41 18 96 08/03/18 20:12 98.8 F 63 19 150/93 96 08/03/18 16:44 98.1 F 68 18 147/86 97 08/03/18 16:28 18 94 08/03/18 12:08 98.1 F 64 18 145/70 97 08/03/18 09:49 18 95 08/03/18 07:08 97.3 F L 73 18 161/94 93 08/03/18 04:13 97.6 F 81 18 171/81 91 02/20/19 03:34 15 94 08/02/18 23:40 97.6 F 80 16 127/74 96 08/02/18 23:00 15 99 Intake and Output 08/03/18 08/03/18 08/03/18 07:59 15:59 23:59 Intake Total 360 / 360 240 / 240 Output Total 200 / 200 175 / 175 225 / 225 Balance -200 / -200 185 / 185 15 Intake: Oral 360 / 360 240 / 240 Output: Urine 200 / 200 175 / 175 225 / 225 Other: Meal Lunch Dinner Percent of Meal Consumed 100% 100% Weight 77.3 kg Blood Glucose* 90 126 157 Patient Weight 08/03/18 23:59 Weight 77.3 kg - General Appearance General appearance: Present: chronically ill, frail EENT: Present: ATNC, mucous membranes moist Neck: Present: no JVD, supple Respiratory: Present: clear Cardiology: Present: edema (LE, UE bilat and abdomen ), normal S1, normal S2 Dialysis Vascular Access: Venous Catheter (temp) Gastrointestinal: Present: no tenderness, no guarding Integumentary: Present: warm and dry Neurologic: Present: no focal deficit Musculoskeletal: Present: no deformities Psychiatric: Present: mood/affect appropriate, cooperative - Lab 08/03/18 05:20 08/03/18 05:20 Most recent lab results Calcium 7.0 mg/dL (8.6-10.3) L 08/03/18 05:20 Phosphorus 9.6 mg/dL (2.7-4.5) H 07/30/18 06:19 Urine Creatinine 60 mg/dL 07/27/18 23:45 Urine Sodium 53.9 mEq/L 07/27/18 23:45 Urine Total Protein 876 mg/dL (1-14) H 07/27/18 23:45 Consult Discharge Plan - Plan [facility]errals: [facility] [Primary Care Provider] -
[2018-08-04] MEDS: Albuterol 2.5 MG/3 ML NEBULIZER IH SCH ×4 (03:41→21:51)
[2018-08-04 06:33] LABS: Hematocrit 28.7 % (37.5-50.1); Hemoglobin 9.8 g/dL (12.9-16.9); Mean Corpuscular HGB Conc 34.1 g/dL (31.6-35.5); Mean Corpuscular Volume 93.8 fL (83.0-100.0); Mean Platelet Volume 10.7 fL (9.4-12.4); Platelet Count 216 K/mcL (140-400); Red Blood Count 3.06 M/mcL (4.19-5.50); Red Cell Distribution Width 13.8 % (11.5-14.5)
[2018-08-04 06:49] LABS: Potassium 3.8 mEq/L (3.5-5.1)
[2018-08-04 06:50] LABS: Calcium 7.4 mg/dL (8.6-10.3)
[2018-08-04] MEDS ORDERED: *HR* LORazepam 2 MG/ML VIAL IVP ONE (07:16)
[2018-08-04] MEDS ORDERED: 0.9 % Sodium Chloride 250 ML IVC PRN (07:18)
[2018-08-04] MEDS ORDERED: *HR* Heparin 10,000 UNIT/10 ML VIAL IV PRN (07:18)
[2018-08-04] MEDS ORDERED: 0.9 % Sodium Chloride 1,000 ML PRIME SCH (07:30)
--- NOTE | 2018-08-04 07:38 | Internal Med Progress Note ---
<Soraya Bergeron R - Last Filed: 08/04/18 13:26> Hospitalist Progress Note - Encounter Date of Encounter: 08/04/18 Time of Encounter: 07:35 - Subjective Interval History: Pt to attempt hemodialysis again today with goal of UF of 2-3kg fluid. He will received 0.5mg Ativan prior to treatment for prophylaxis of his anxiety. Pt cont inues with worsening kidney function and edema of arms and abdomen. Will order PT/OT evaluation of the patient to determine need for potential home health. Pt was able to tolerate dialysis with the addition of Ativan. PT walked him afterwards without complications. - Exam Vitals: Temp Pulse Resp BP Pulse Ox 97.6 F 54 19 137/93 95 08/04/18 04:08 08/04/18 04:08 08/04/18 04:08 08/04/18 04:08 08/04/18 04:08 Exam: Constitutional - alert and pleasant, in NAD. HEENT - PERRL. EOMI. No obvious edema of face or neck. Neck non-tender to palpation without LAD. Cardio - irregular rhythm, normal rate, no audible murmurs. Respiratory - Lungs with mild wheezing throughout. No focal areas of consolidation or rales. Abdomen - soft, nontender to palpation without rebound, guarding or rigidity. Scar from previous hernia repair without complications. Increasing edema of abdomen. Extremities - Increased edema of B/L UE with 2+ pitting edema. Increased nonpitting edema of his B/L lower extremities. Skin - no visible rashes or skin breakdown. Neuro - a&o x3, follow commands. Good strength and sensation in all extremities. - Assessment and Plan (1) Anasarca Current Visit: Yes Status: Chronic Assessment and Plan: Due to volume overload and MAO on CKD, possibly prerenal due to CHF. Plan: Bumex held due to worsening kidney function Continue steroids Dialysis per nephro - will add prn ativan prior to tx to see if it alleviates his chest pain Nephrology following (2) Acute kidney injury superimposed on CKD Current Visit: No Status: Acute Assessment and Plan: Cr 06/22/18 1.90. Cr 4.43 now with BUN 121. Hx of CKD stage IV and FSGS - significant worsening for past week with 5lb wt gain Plan: Will monitor renal panel QD. Bumex held last night due to worsening kidney fxn Nephro following Renal US showed a renal cyst without hydronephrosis Dialysis (3) Nephrotic syndrome Current Visit: No Status: Chronic Assessment and Plan: Hx FSGS s/p cardiac cath in January 2018 Increased swelling of extremities Kidney panel shows Cre 4.01 with u protein of 876, increased from visit in june Plan: As above (4) Chest pain Current Visit: Yes Status: Acute Assessment and Plan: Chest pain with dialysis x2 trials Both times with afib Likely secondary to afib from irritation with dialysis catheter Cardio consulted Echo unchanged from previous, pacer working, afib rate controlled - cardio has signed off Will likely retract dialysis catheter tomorrow before trial of dialysis again Ativan prn prior to dialysis will also be initiated (5) Atrial fibrillation Current Visit: No Status: Chronic Assessment and Plan: On Dig - level low here at 0.7 EKG shows afib with paced rhythm Plan: Digoxin Monitor levels and HR Cardio consulted - they state it continues to be rate controlled and have signed off as a cause of his chest pain (6) CAD (coronary artery disease) Current Visit: No Status: Chronic Assessment and Plan: Continue home ASA 325 mg, Coreg, and statin. (7) Emphysema lung Current Visit: No Status: Chronic Assessment and Plan: CXR improved from previous Continue home symbicort PRN nebs but not in acute COPD exacerbation. (8) Diabetes mellitus Current Visit: No Status: Chronic Assessment and Plan: Hx of DM without insulin use Plan: Continue home Glipizide 2.5 mg SSI if needed while in hospital DVT Prophylaxis: Pt is ambulatory EPCDs ordered Pt takes full aspirin daily - Time Spent with Patient Total time spent is greater than 50% in coordination of care (as documented) at patient's floor/unit and/or counseling patient: Internal Medicine: Result - Labs CBC & Chem 7: 08/04/18 06:03 08/04/18 06:03 Labs: Short CBC 08/04/18 Range/Units 06:03 WBC 12.2 H (4.3-11.1) K/mcL Hgb 9.8 L (12.9-16.9) g/dL Hct 28.7 L (37.5-50.1) % Plt Count 216 (140-400) K/mcL BMP 08/04/18 06:03 Sodium 131 L Potassium 3.8 Chloride 102 Carbon Dioxide 19 L BUN 121 H Creatinine 4.43 H Glucose 103 Calcium 7.4 L - ABG Interpretation ABG results: PT/INR, D-dimer PT 9.7 Seconds (9.4-12.1) 08/01/18 18:08 - Impressions Impressions Echocardiogram 08/02/18 09:54 Impressions: LVEF 45%. Indeterminate diastolic function. The right ventricle was not well visualized Severely dilated left atrium. Mild mitral regurgitation. Unable to estimate RVSP due to lack of TR jet. A device lead was visualized in the right atrium and right ventricle. Left Ventricular Wall Motion: Rest Echo Findings The apex, apical inferior, mid inferior, basal inferior, apical anterior, mid anterior, basal anterior, apical septal, mid inferior septal, basal inferior septal, apical lateral, mid anterior lateral, basal anterior lateral, mid anterior septal, mid inferior lateral, basal anterior septal and basal inferior lateral petit were hypokinetic. Findings: Study Quality * Technically sub-optimal due to poor echocardiographic windows. ECG Findings * Atrial fibrillation. Left Ventricle * LVEF 45%. * Definity echo contrast was used. * Indeterminate diastolic function. Right Ventricle * The right ventricle was not well visualized Left Atrium * Severely dilated left atrium. Right Atrium * The right atrium was not well visualized Interatrial Septum * Interatrial septum not well evaluated. Aortic Valve * Aortic valve not well visualized. * No aortic regurgitation. * No aortic stenosis. Mitral Valve * No mitral stenosis. * Mitral valve not well visualized. Tricuspid Valve * Mild tricuspid regurgitation. * Tricuspid valve not well visualized. * Unable to estimate RVSP due to lack of TR jet. Pulmonic Valve * Pulmonic valve not well visualized. Aorta * Normally sized aortic root. Pericardium * The pericardium appears normal. IVC * The IVC is dilated. Device lead * A device lead was visualized in the right atrium and right ventricle. Consult Discharge Plan - Plan [facility]errals: [facility] [Primary Care Provider[facility] - <Tiffani Dixon - Last Filed: 08/04/18 15:48> Hospitalist Progress Note - Encounter Date of Encounter: 08/04/18 - Exam Vitals: Temp Pulse Resp BP Pulse Ox 97.9 F 85 16 169/110 93 08/04/18 11:12 08/04/18 11:12 08/04/18 11:12 08/04/18 11:12 08/04/18 11:12 - Assessment and Plan (1) Atrial fibrillation Current Visit: No Status: Chronic (2) CAD (coronary artery disease) Current Visit: No Status: Chronic (3) Anasarca Current Visit: Yes Status: Chronic (4) Nephrotic syndrome Current Visit: No Status: Chronic (5) Emphysema lung Current Visit: No Status: Chronic (6) Chronic systolic (congestive) heart failure Current Visit: No Status: Chronic (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 Current Visit: No Status: Suspected (8) Acute kidney injury superimposed on CKD Current Visit: No Status: Acute (9) Diabetes mellitus Current Visit: No Status: Chronic - Time Spent with Patient Total time spent is greater than 50% in coordination of care (as documented) at patient's floor/unit and/or counseling patient: Internal Medicine: Result - Labs CBC & Chem 7: 08/04/18 06:03 08/04/18 06:03 Labs: Short CBC 08/04/18 Range/Units 06:03 WBC 12.2 H (4.3-11.1) K/mcL Hgb 9.8 L (12.9-16.9) g/dL Hct 28.7 L (37.5-50.1) % Plt Count 216 (140-400) K/mcL BMP 08/04/18 06:03 Sodium 131 L Potassium 3.8 Chloride 102 Carbon Dioxide 19 L BUN 121 H Creatinine 4.43 H Glucose 103 Calcium 7.4 L - ABG Interpretation ABG results: PT/INR, D-dimer PT 9.7 Seconds (9.4-12.1) 08/01/18 18:08 - Attending Attestation I examined this patient and my medical decision-making was reviewed with the Resident Physician Dr Bergeron. I agree with the documented findings, disposition and treatment plan as described except to the extent set forth below. Mr Dumont is currently admitted for acute on chronic renal failure and anasarca. Mr Dumont is awake in HD. No anxiety, palpitations this session today. Denies chest pain, sob. Tolerating HD very well today gen- alert, awake,appears stated age cv- reg rate and reg rhythm, normal s1,s2, no murmurs appreciated, pitting edema to knees bl +3 and bl hands/forearms +2 lungs- ctabl, no wheezing, rhonchi or crackles in [place], normal resp effort on ra neuro- AAOx3 1. MAO on CKD (stage unknown)- HD as per nephro 2. Anasarca 2/2 Nephrotic syndrome 2/2 FSGS- nephro following, steroids, fluid restriction 3 Chest pain may have been 2/2 Afib in HD, Hx cabg 2018, now resolved pain and rate controlled Paroxysmal afib - cards following, echo personally reviewed with EF 45% and indeterminant diastolic dysfunction, device interrogation by cards, he was not on long-term AC at home due to anemia and is pending outpt cscope, holding full AC at this time due to bleeding from RIJ site and anemia, cont ASA (there is no need to retract dialysis catheter as noted by resident) 4. Acute on Chronic Diastolic CHF- fluid management as per nephro Further diagnoses and plan as noted by resident SCDS for vte ppx given bleeding as noted above and pharm vte ppx held <Soraya Bergeron R - Last Filed: 08/04/18 13:26> (4) Chest pain Qualifiers: Chest pain type: unspecified Qualified Code(s): R07.9 - Chest pain, unspecified (5) Atrial fibrillation Qualifiers: Atrial fibrillation type: chronic Qualified Code(s): I48.2 - Chronic atrial fibrillation (6) CAD (coronary artery disease) Qualifiers: Coronary Disease-Associated Artery/Lesion type: [place] artery [place] vs. transplanted heart: [place] heart Associated angina: without angina Qualified Code(s): I25.10 - Atherosclerotic heart disease of [place] coronary artery without angina pectoris (7) Emphysema lung Qualifiers: Emphysema type: panlobular Qualified Code(s): J43.1 - Panlobular emphysema (8) Diabetes mellitus Qualifiers: Diabetes mellitus type: type 2 Diabetes mellitus budget engineer insulin use: w ithout long-term use Diabetes mellitus complication status: without compli cation Qualified Code(s): E11.9 - Type 2 diabetes mellitus without complic ations <Tiffani Dixon - Last Filed: 08/04/18 15:48> (1) Atrial fibrillation Qualifiers: Atrial fibrillation type: chronic Qualified Code(s): I48.2 - Chronic atrial fibrillation (2) CAD (coronary artery disease) Qualifiers: Coronary Disease-Associated Artery/Lesion type: [place] artery [place] vs. transplanted heart: [place] heart Associated angina: without angina Qualified Code(s): I25.10 - Atherosclerotic heart disease of [place] coronary artery without angina pectoris (5) Emphysema lung Qualifiers: Emphysema type: panlobular Qualified Code(s): J43.1 - Panlobular emphysema (9) Diabetes mellitus Qualifiers: Diabetes mellitus type: type 2 Diabetes mellitus budget engineer insulin use: without budget engineer use Diabetes mellitus complication status: without complication Qualified Code(s): E11.9 - Type 2 diabetes mellitus without complications
[2018-08-04] MEDS: Aspirin Enteric Coated 325 MG Tablet PO SCH (07:48)
[2018-08-04] MEDS: predniSONE 20 MG TABLET PO SCH (07:48)
[2018-08-04] MEDS: Sennosides 8.6 MG TABLET PO SCH (07:49)
[2018-08-04] MEDS: *HR* GlipiZIDE 5 MG TABLET PO SCH (07:49)
[2018-08-04] MEDS: Insulin LISPRO 300 UNITS/3 ML VIAL SQ SCH ×3 (07:51→16:41)
[2018-08-04] MEDS: Budesonide/Formoterol 160/4.5 1 PUFF INH IH SCH ×2 (10:02→21:51)
[2018-08-04] MEDS ORDERED: 0.9 % Sodium Chloride 2,000 ML ONE (10:33)
[2018-08-04] MEDS: *HR* Digoxin 0.125 MG TABLET PO SCH (11:20)
[2018-08-04 16:14] LABS: Magnesium 2.6 mg/dL (1.6-2.6)
[2018-08-04] MEDS ORDERED: NON-FORMULARY MEDICATION 1 EACH EACH (Pravastatin Sodium [Pravachol] 80 MG) PO SCH (21:00)
--- NOTE | 2018-08-04 23:42 | Nephrology Progress Note ---
Date of Encounter: 08/04/18 Time of Encounter: 12:00 - Assessment and Plan (1) Acute kidney injury superimposed on CKD Current Visit: No Status: Acute Continue UF today with goal of 2-3kg as tolerated Will plan for HD tomorrow if he tolerates UF after ativan today Continue to avoid nephrotoxins if possible Continue renal diet (2) Nephrotic syndrome Current Visit: No Status: Chronic Edema siginificant, continue UF today as tolerated Continue prednsione, would likely need for 12 weeks including taper to off Continue fluid restriction Continue strict I/Os (3) Anemia Current Visit: No Status: Chronic hgb noted at 9.8, will monitor Qualifiers: Anemia type: due to chronic kidney disease Chronic kidney disease stage: stage 3 (moderate) Qualified Code(s): N18.3 - Chronic kidney disease, stage 3 (moderate); D63.1 - Anemia in chronic kidney disease (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 Doing well with ativan given at the beginning of treatment Objective - Vital Signs Vital signs: Vital Signs Temp Pulse Resp BP Pulse Ox 08/04/18 22:26 97.6 F 53 20 162/93 97 08/04/18 21:51 16 95 08/04/18 20:09 98.1 F 73 18 159/64 94 08/04/18 16:36 98.0 F 63 18 192/81 94 08/04/18 15:59 72 08/04/18 15:49 16 94 08/04/18 11:12 97.9 F 85 16 169/110 93 08/04/18 10:58 96.8 F L 16 148/86 08/04/18 10:40 104/74 08/04/18 10:30 130/89 08/04/18 10:15 123/89 08/04/18 10:00 132/74 08/04/18 09:45 131/83 08/04/18 09:30 115/79 08/04/18 09:15 114/67 08/04/18 09:00 97 F L 18 123/78 08/04/18 07:34 97.8 F 65 18 140/73 96 08/04/18 04:08 97.6 F 54 19 137/93 95 08/04/18 03:41 16 97 Intake and Output 08/04/18 08/04/18 08/04/18 07:59 15:59 23:59 Intake Total 1080 / 1080 690 / 690 Output Total 300 / 300 2865 / 2865 175 / 175 Balance -300 / -300 -1785 / -1785 515 / 515 Intake: Oral 480 / 480 690 / 690 Intake, Rinseback and Flushes 600 / 600 Output: Urine 300 / 300 150 / 150 175 / 175 Total Dialysis (HD) Output 2715 / 2715 Other: Meal Lunch Dinner Percent of Meal Consumed 95% 100% Weight 78.6 kg Blood Glucose* 100 108 180 Hemodialysis Net Fluid Removed 2115 (mL) Patient Weight 08/04/18 23:59 Weight 78.6 kg - General Appearance General appearance: Present: chronically ill, fatigue EENT: Present: ATNC, mucous membranes moist Neck: Present: no JVD, supple Respiratory: Present: clear Cardiology: Present: edema (LE, UE bilat and abdomen), normal S1, normal S2 Dialysis Vascular Access: Venous Catheter (temp) Gastrointestinal: Present: no tenderness, no guarding Integumentary: Present: warm and dry Neurologic: Present: no focal deficit Musculoskeletal: Present: no deformities Psychiatric: Present: mood/affect appropriate, cooperative - Lab 08/04/18 06:03 08/04/18 06:03 Most recent lab results Calcium 7.4 mg/dL (8.6-10.3) L 08/04/18 06:03 Phosphorus 9.6 mg/dL (2.7-4.5) H 07/30/18 06:19 Magnesium 2.6 mg/dL (1.6-2.6) 08/04/18 06:03 Urine Creatinine 60 mg/dL 07/27/18 23:45 Urine Sodium 53.9 mEq/L 07/27/18 23:45 Urine Total Protein 876 mg/dL (1-14) H 07/27/18 23:45 Consult Discharge Plan - Plan [facility]errals: [facility] [Primary Care Provider] -
[2018-08-05] MEDS: Albuterol 2.5 MG/3 ML NEBULIZER IH SCH ×4 (04:05→21:39)
[2018-08-05 05:19] LABS: Hematocrit 25.8 % (37.5-50.1); Hemoglobin 9.1 g/dL (12.9-16.9); Mean Corpuscular HGB Conc 35.3 g/dL (31.6-35.5); Mean Corpuscular Hemoglobin 32.5 pg (28.0-33.3); Mean Corpuscular Volume 92.1 fL (83.0-100.0); Mean Platelet Volume 10.7 fL (9.4-12.4); Platelet Count 206 K/mcL (140-400); Red Cell Distribution Width 13.6 % (11.5-14.5)
[2018-08-05 05:31] LABS: Calcium 7.2 mg/dL (8.6-10.3); Potassium 3.5 mEq/L (3.5-5.1)
[2018-08-05] MEDS: Insulin LISPRO 300 UNITS/3 ML VIAL SQ SCH ×3 (07:48→16:56)
[2018-08-05] MEDS: *HR* GlipiZIDE 5 MG TABLET PO SCH (07:49)
[2018-08-05] MEDS: predniSONE 20 MG TABLET PO SCH (07:49)
[2018-08-05] MEDS: Aspirin Enteric Coated 325 MG Tablet PO SCH (07:49)
[2018-08-05] MEDS: Sennosides 8.6 MG TABLET PO SCH (07:49)
--- NOTE | 2018-08-05 09:21 | Internal Med Progress Note ---
<Tiffani Dixon - Last Filed: 08/05/18 09:59> Hospitalist Progress Note - Encounter Date of Encounter: 08/05/18 - Exam Vitals: Temp Pulse Resp BP Pulse Ox 97.6 F 64 20 145/83 97 08/05/18 07:42 08/05/18 07:42 08/05/18 07:42 08/05/18 07:42 08/05/18 07:42 - Assessment and Plan (1) Atrial fibrillation Current Visit: No Status: Chronic (2) CAD (coronary artery disease) Current Visit: No Status: Chronic (3) Anasarca Current Visit: Yes Status: Chronic (4) Nephrotic syndrome Current Visit: No Status: Chronic (5) Emphysema lung Current Visit: No Status: Chronic (6) Chronic systolic (congestive) heart failure Current Visit: No Status: Chronic (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 Current Visit: No Status: Suspected (8) Acute kidney injury superimposed on CKD Current Visit: No Status: Acute (9) Diabetes mellitus Current Visit: No Status: Chronic - Time Spent with Patient Total time spent is greater than 50% in coordination of care (as documented) at patient's floor/unit and/or counseling patient: Internal Medicine: Result - Labs CBC & Chem 7: 08/05/18 04:30 08/05/18 04:30 Labs: Short CBC 08/05/18 Range/Units 04:30 WBC 11.9 H (4.3-11.1) K/mcL Hgb 9.1 L (12.9-16.9) g/dL Hct 25.8 L (37.5-50.1) % Plt Count 206 (140-400) K/mcL BMP 08/04/18 08/05/18 06:03 04:30 Sodium 131 L 132 L Potassium 3.8 3.5 Chloride 102 102 Carbon Dioxide 19 L 22 L BUN 121 H 124 H Creatinine 4.43 H 4.62 H Glucose 103 147 H Calcium 7.4 L 7.2 L - ABG Interpretation ABG results: PT/INR, D-dimer PT 9.7 Seconds (9.4-12.1) 08/01/18 18:08 Consult Discharge Plan - Plan [facility]errals: [facility] [Primary Care Provider[facility] - - Attending Attestation I examined this patient and my medical decision-making was reviewed with the Resident Physician Dr Bergeron. I agree with the documented findings, disposition and treatment plan as described except to the extent set forth below. Mr Dumont is currently admitted for acute on chronic renal failure and anasarca. Mr Dumont is awake with at bedside. No sob, chest pain or anxiety. sore right upper extremity, located on forearm, has bruising there, denies injury, believes he had had it resting on remote and/or pulse oximetry. Has similar bruise on left forearm. no arm numbness/tingling or temp change. remains very edematous bl ue net neg 1.5L yesterday gen- alert, awake,appears stated age cv- reg rate and reg rhythm, normal s1,s2, no murmurs appreciated, pitting edema to knees bl +2 and bl hands/forearms +3, radial pulses 2+ and regular lungs- ctabl, no wheezing, rhonchi or crackles in [place], normal resp effort on ra skin- right medial forearm with red/purple discoloration and area in center of ecchymosis, cannot palpate a hematoma, no wound, no increased warmth, left medial forearm ecchymosis without palpable hematoma neuro- AAOx3, sensation to light touch intact bl arms and equal 1. MAO on CKD (stage unknown)- HD as per nephro 2. Anasarca 2/2 Nephrotic syndrome 2/2 FSGS- nephro following, steroids (will need for 12 weeks and taper as per nephro), fluid restriction, UF as per nephro 3 Chest pain may have been 2/2 Afib in HD, Hx cabg 2017, now resolved pain and rate controlled Paroxysmal afib - cards followed, echo EF 45% and indeterminant diastolic dysfunction, device interrogation by cards, he was not on intermediate accountant AC at home due to anemia and is pending outpt cscope, holding full AC at this time due to bleeding from RIJ site and anemia, cont ASA (there is no need to retract dialysis catheter as noted by resident) 4. Acute on Chronic Diastolic CHF- fluid management as per nephro Further diagnoses and plan as noted by resident SCDS for vte ppx given bleeding as noted above and pharm vte ppx held <Soraya Bergeron R - Last Filed: 08/05/18 15:07> Hospitalist Progress Note - Encounter Date of Encounter: 08/05/18 Time of Encounter: 09:18 - Subjective Interval History: Pt with a run of Vtach yesterday afternoon while sleeping. Magnesium level drawn and normal at 2.6. Asx, and with pacer/defibrillator. Will continue to monitor. Pt tolerated HUF yesterday and will attempt dialysis today. Pt states right arm is painful today but thinks he slept on it wrong. Area proximal to elbow is erythematous and tender to palpation. No increased warmth or drainage of fluids. No other complaints at this time. - Exam Vitals: Temp Pulse Resp BP Pulse Ox 97.6 F 64 20 145/83 97 08/05/18 07:42 08/05/18 07:42 08/05/18 07:42 08/05/18 07:42 08/05/18 07:42 Exam: Constitutional - alert and pleasant, in NAD. HEENT - PERRL. EOMI. No obvious edema of face or neck. Neck non-tender to palpation without LAD. Cardio - irregular rhythm, normal rate, no audible murmurs. Respiratory - Lungs with moderate wheezing throughout. No focal areas of consolidation or rales. Abdomen - soft, nontender to palpation without rebound, guarding or rigidity. Scar from previous hernia repair without complications. Edema of abdomen slightly improved post HUF yesterday. Extremities - Stable edema of B/L UE with 2+ pitting edema. Stable edema of his B/L lower extremities. Right upper arm tender to palpation. Skin - no visible rashes or skin breakdown. Area of erythema on right upper arm proximal to the elbow. Not warm to touch or draining any fluid. Neuro - a&o x3, follow commands. Good strength and sensation in all extremities. - Assessment and Plan (1) Anasarca Current Visit: Yes Status: Acute Assessment and Plan: Due to volume overload and MAO on CKD, possibly prerenal due to CHF. Plan: Bumex held due to worsening kidney function Continue steroids Dialysis per nephro - will add prn ativan prior to tx to see if it alleviates his chest pain Nephrology following (2) Acute kidney injury superimposed on CKD Current Visit: No Status: Acute Assessment and Plan: Hx of CKD stage IV and FSGS - significant worsening for past week with 5lb wt gain Cr 06/22/18 1.90. Cr 4.62 now with BUN 124. Plan: Will monitor renal panel QD. Bumex held last night due to worsening kidney fxn Nephro following Renal US showed a renal cyst without hydronephrosis Dialysis (3) Nephrotic syndrome Current Visit: No Status: Chronic Assessment and Plan: Hx FSGS s/p cardiac cath in January 2018 Increased swelling of extremities Kidney panel shows Cre 4.01 with u protein of 876, increased from visit in june Plan: As above (4) Chest pain Current Visit: Yes Status: Acute Assessment and Plan: Chest pain with dialysis x2 trials Both times with afib Likely secondary to afib from irritation with dialysis catheter Cardio consulted Echo unchanged from previous, pacer working, afib rate controlled - cardio has signed off Ativan prn prior to dialysis will also be initiated (5) Atrial fibrillation Current Visit: No Status: Chronic Assessment and Plan: On Dig - level 1.4 this am, will decrease dose and continue to monitor if cannot tolerate dialysis today EKG shows afib with paced rhythm Plan: Digoxin Monitor levels and HR Cardio consulted - they state it continues to be rate controlled and have signed off as a cause of his chest pain (6) CAD (coronary artery disease) Current Visit: No Status: Chronic Assessment and Plan: Continue home ASA 325 mg, Coreg, and statin. (7) Emphysema lung Current Visit: No Status: Chronic Assessment and Plan: CXR improved from previous Continue home symbicort PRN nebs but not in acute COPD exacerbation. (8) Diabetes mellitus Current Visit: No Status: Chronic Assessment and Plan: Hx of DM without insulin use Plan: Continue home Glipizide 2.5 mg SSI if needed while in hospital DVT Prophylaxis: Pt is ambulatory EPCDs ordered Pt takes full aspirin daily - Time Spent with Patient Total time spent is greater than 50% in coordination of care (as documented) at patient's floor/unit and/or counseling patient: Internal Medicine: Result - Labs CBC & Chem 7: 08/05/18 04:30 08/05/18 04:30 Labs: Short CBC 08/05/18 Range/Units 04:30 WBC 11.9 H (4.3-11.1) K/mcL Hgb 9.1 L (12.9-16.9) g/dL Hct 25.8 L (37.5-50.1) % Plt Count 206 (140-400) K/mcL BMP 08/04/18 08/05/18 06:03 04:30 Sodium 131 L 132 L Potassium 3.8 3.5 Chloride 102 102 Carbon Dioxide 19 L 22 L BUN 121 H 124 H Creatinine 4.43 H 4.62 H Glucose 103 147 H Calcium 7.4 L 7.2 L - ABG Interpretation ABG results: PT/INR, D-dimer PT 9.7 Seconds (9.4-12.1) 08/01/18 18:08 <Tiffani Dixon M - Last Filed: 08/05/18 09:59> (1) Atrial fibrillation Qualifiers: Atrial fibrillation type: chronic Qualified Code(s): I48.2 - Chronic atrial fibrillation (2) CAD (coronary artery disease) Qualifiers: Coronary Disease-Associated Artery/Lesion type: [place] artery [place] vs. transplanted heart: [place] heart Associated angina: without angina Qualified Code(s): I25.10 - Atherosclerotic heart disease of [place] coronary artery without angina pectoris (5) Emphysema lung Qualifiers: Emphysema type: panlobular Qualified Code(s): J43.1 - Panlobular emphysema (9) Diabetes mellitus Qualifiers: Diabetes mellitus type: type 2 Diabetes mellitus intermediate accountant insulin use: without nursing home use Diabetes mellitus complication status: without complication Qualified Code(s): E11.9 - Type 2 diabetes mellitus without complications <Soraya Bergeron R - Last Filed: 08/05/18 15:07> (4) Chest pain Qualifiers: Chest pain type: unspecified Qualified Code(s): R07.9 - Chest pain, unspecified (5) Atrial fibrillation Qualifiers: Atrial fibrillation type: chronic Qualified Code(s): I48.2 - Chronic atrial fibrillation (6) CAD (coronary artery disease) Qualifiers: Coronary Disease-Associated Artery/Lesion type: [place] artery [place] vs. transplanted heart: [place] heart Associated angina: without angina Qualified C ode(s): I25.10 - Atherosclerotic heart disease of [place] coronary artery without angina pectoris (7) Emphysema lung Qualifiers: Emphysema type: panlobular Qualified Code(s): J43.1 - Panlobular emphysema (8) Diabetes mellitus Qualifiers: Diabetes mellitus type: type 2 Diabetes mellitus nursing home insulin use: without intermediate accountant use Diabetes mellitus complication status: without complication Qualified Code(s): E11.9 - Type 2 diabetes mellitus without complications
[2018-08-05] MEDS ORDERED: 0.9 % Sodium Chloride 1,000 ML ONE (09:28)
[2018-08-05] MEDS ORDERED: *HR* Heparin 10,000 UNIT/10 ML VIAL IV PRN (09:40)
[2018-08-05] MEDS ORDERED: 0.9 % Sodium Chloride 250 ML IVC PRN (09:40)
[2018-08-05] MEDS ORDERED: *HR* LORazepam 2 MG/ML VIAL IVP ONE ×2 (09:47→14:11)
[2018-08-05] MEDS: Budesonide/Formoterol 160/4.5 1 PUFF INH IH SCH ×2 (10:37→21:39)
--- NOTE | 2018-08-05 13:19 | Physician Discharge Referral ---
Home Health/Hosp Referral Info Transfer to: Home Health Provider in Charge Post Discharge: PCP - Diagnosis (1) Atrial fibrillation Priority: Secondary Status: Chronic (2) CAD (coronary artery disease) Priority: Secondary Status: Chronic (3) Anasarca Priority: Primary Status: Acute (4) Nephrotic syndrome Priority: Secondary Status: Chronic (5) Emphysema lung Priority: Secondary Status: Chronic (6) Chronic systolic (congestive) heart failure Priority: Secondary Status: Chronic (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 Priority: Secondary Status: Chronic (8) Acute kidney injury superimposed on CKD Priority: Secondary Status: Acute (9) Diabetes mellitus Priority: Secondary Status: Chronic - Respiratory Orders Smoking Cessation: Smoking cessation has been advised. For more information, call the [employer] Tobacco Quit Line at 5-256-GJBS-NOW. - Diet/Nutrition Diet/Nutrition Orders: Renal (1.5 L fluid restriction), Cardiac - Activity Activity Orders: Up ad bhavna - Services Needed Following services are medically necessary services: Nursing, Home Health Aide, Physical Therapy, Occupational Therapy - Transfer Medications Home Medications: Albuterol Neb [Proventil Neb] 2.5 mg IH Q6HR PRN 05/27/18 [History] Allopurinol [Zyloprim 100 MG] 100 mg PO DAILY 05/27/18 [History] Bumetanide [Bumex] 1 mg PO TID 05/27/18 [History] Carvedilol [Coreg] 25 mg PO BID 05/27/18 [History] Colchicine [Colcrys] 0.6 mg PO DAILY PRN 05/27/18 [History] Docusate [Colace] 200 mg PO DAILY 05/27/18 [History] Ferrous Sulfate [Iron] 325 mg PO DAILY 05/27/18 [History] Pravastatin Sodium [Pravachol] 80 mg PO HS 05/27/18 [History] metOLazone [Zaroxolyn] 5 mg PO DAILY 05/27/18 [History] Digoxin [Lanoxin] 0.125 mg PO QOD 06/17/18 [History] Albuterol Sulfate [Proair Hfa] 2 puff IN Q6H PRN 07/28/18 [History] Ascorbic Acid [Vitamin C] 500 mg PO DAILY 07/28/18 [History] Aspirin 162 mg PO DAILY 07/28/18 [History] Budesonide/Formoterol 160/4.5 [Symbicort 160/4.5] 1 puff IH BIDR 07/28/18 [History] Doxycycline 100 mg PO BID 07/28/18 [History] Psyllium Husk/Aspartame [Metamucil Powder] 10 gm PO DAILY PRN 07/28/18 [History] Spironolactone [Aldactone] 50 mg PO DAILY 07/28/18 [History] glipiZIDE [Glucotrol] 2.5 mg PO DAILY 07/28/18 [History] Allergies/Adverse Reactions: Allergy/AdvReac Type Severity Reaction Status Date / Time meperidine [From Demerol] Allergy Hives Verified 05/25/18 12:28 Certification: Further, I certify that my clinical findings support that this patient is homebound (i.e. absences from home require considerable and taxing effort and are for medical reasons or holiness services or infrequently or short duration when for other reasons) because: Homebound Reason: Leaving home requires considerable and taxing effort due to condition Attestation: My signature below is to certify that this patient is under my care and that I, or nurse practitioner, or a physician's executive sales assistant working with me, has a [id number] encounter with this patient.
--- NOTE | 2018-08-05 17:23 | Nephrology Progress Note ---
Date of Encounter: 08/05/18 Time of Encounter: 12:40 - Assessment and Plan (1) Acute kidney injury superimposed on CKD Current Visit: No Status: Acute I reviewed the sign out communication from my colleague Dr. Beck. I also reviewed prior progress notes in both [facility] and [facility], as well as labs, vitals and medications. This complex patient is high risk and will require dialysis today via his temporary dialysis catheter. His MAO is clearly secondary to the FSGS and associated with nephrotic syndrome with anasarca. He may need further treatments for fluid removal and clearance as well. I suspect that if he does not show signs of recovery by early next week, he will need a permacath placed. Aspirin, and other anticoagulants will have to be held approximately 5 days prior before permacath can be placed according to the [facility]. I see the digoxin level was not in a toxic range, which is reassuring. I recommend caution with the long acting sulfonylurea, and in patients with renal failure they are not a higher risk for hypoglycemia. Diabetes med management as per primary team. Continue to follow a renal protective strategy as able including dosing renally cleared medications by creatinine clearance / GFR, and avoiding nephrotoxic agents as able. Strict I's and O's and daily weights are recommended as well. I will continue to closely follow with you (2) Nephrotic syndrome Current Visit: No Status: Chronic I recomend a fluid restriction, Low Na diet, and I recommend statin and when able to have him on an KENDRA or ARB (the later two currently held d/t the MAO). (3) FSGS (focal segmental glomerulosclerosis) with nephrosis Current Visit: No Status: Chronic Biopsy proven, appears idiopathic with negative malignancy workup Agree with steroids resumed. Had good response previously. (4) Anasarca Current Visit: Yes Status: Acute Secondary to the Nephrotic syndrome which is secondary to the FSGS. HD for UF and clearance. Subjective Principal diagnosis: MAO on CKD Interval history: The patient was seen and examined while being started on dialysis. I reviewed the sign out communication for my colleague Dr. Beck. He affirmed having some anxiety, and has been started on Ativan, he affirmed. He did not affirm active nausea, vomiting, palpitations, or diarrhea. Objective - Vital Signs Vital signs: Vital Signs Temp Pulse Resp BP Pulse Ox 08/05/18 16:35 98.2 F 90 18 133/85 95 08/05/18 16:24 17 94 08/05/18 12:50 98.0 F 17 132/58 08/05/18 11:22 98.0 F 69 18 143/74 97 08/05/18 10:39 16 97 08/05/18 07:45 97.6 F 64 20 145/83 97 08/05/18 07:42 97.6 F 64 20 145/83 97 08/05/18 04:05 16 96 08/05/18 04:02 97.7 F 75 20 156/93 96 08/05/18 03:25 97.4 F L 100 17 153/71 97 08/04/18 22:26 97.6 F 53 20 162/93 97 08/04/18 21:51 16 95 08/04/18 20:09 98.1 F 73 18 159/64 94 Intake and Output 08/05/18 08/05/18 08/05/18 07:59 15:59 23:59 Intake Total 0 / 0 1800 / 1800 Output Total 200 / 200 250 / 250 Balance -200 / -200 1550 / 1550 Intake: Oral 0 / 0 1200 / 1200 Intake, Rinseback and Flushes 600 / 600 Output: Urine 200 / 200 250 / 250 Other: Meal Lunch Percent of Meal Consumed 100% Weight 78.7 kg Blood Glucose* 120 122 183 Hemodialysis Net Fluid Removed 0 (mL) Patient Weight 08/05/18 23:59 Weight 78.7 kg - General Appearance General appearance: Present: well-developed, well-nourished, appears started age EENT: Present: ATNC, PERRL, mucous membranes moist Neck: Present: supple Respiratory: Present: clear Cardiology: Present: edema (consistent with anasarca), regular rate, regular rhythm, normal S1, normal S2 Dialysis Vascular Access: Venous Catheter (temporary HD catheter in the Right IJ) Gastrointestinal: Present: normoactive bowel sounds, no tenderness, no guarding Integumentary: Present: warm and dry Neurologic: Present: no focal deficit, no asterixis, alert and oriented x3 Musculoskeletal: Present: no erythema, no cyanosis Psychiatric: Present: mood/affect appropriate, cooperative - Lab 08/05/18 04:30 08/05/18 04:30 Most recent lab results Calcium 7.2 mg/dL (8.6-10.3) L 08/05/18 04:30 Phosphorus 9.6 mg/dL (2.7-4.5) H 07/30/18 06:19 Magnesium 2.6 mg/dL (1.6-2.6) 08/04/18 06:03 Urine Creatinine 60 mg/dL 07/27/18 23:45 Urine Sodium 53.9 mEq/L 07/27/18 23:45 Urine Total Protein 876 mg/dL (1-14) H 07/27/18 23:45 - Imaging Kidney/bladder ultrasound: report reviewed (The right kidney measures 11.1 cm in length and the left kidney measures 12.8) Consult Discharge Plan - Plan [facility]errals: [facility] [Primary Care Provider] -
[2018-08-06] MEDS: Albuterol 2.5 MG/3 ML NEBULIZER IH SCH ×4 (03:26→22:33)
[2018-08-06 03:50] LABS: Hematocrit 25.9 % (37.5-50.1); Hemoglobin 9.1 g/dL (12.9-16.9); Mean Corpuscular HGB Conc 35.1 g/dL (31.6-35.5); Mean Corpuscular Hemoglobin 32.2 pg (28.0-33.3); Mean Corpuscular Volume 91.5 fL (83.0-100.0); Mean Platelet Volume 10.3 fL (9.4-12.4); Platelet Count 180 K/mcL (140-400); Red Blood Count 2.83 M/mcL (4.19-5.50); Red Cell Distribution Width 13.7 % (11.5-14.5)
[2018-08-06 04:09] LABS: Calcium 7.2 mg/dL (8.6-10.3); Potassium 3.7 mEq/L (3.5-5.1)
[2018-08-06] MEDS: Insulin LISPRO 300 UNITS/3 ML VIAL SQ SCH ×3 (07:48→16:33)
[2018-08-06] MEDS: Sennosides 8.6 MG TABLET PO SCH (08:10)
[2018-08-06] MEDS: predniSONE 20 MG TABLET PO SCH (08:10)
[2018-08-06] MEDS: Aspirin Enteric Coated 325 MG Tablet PO SCH (08:10)
[2018-08-06] MEDS: *HR* GlipiZIDE 5 MG TABLET PO SCH (08:10)
--- NOTE | 2018-08-06 08:14 | Internal Med Progress Note ---
Hospitalist Progress Note - Encounter Date of Encounter: 08/06/18 Time of Encounter: 09:30 - Subjective Interval History: awake, at bedside. No sob, chest pain or palpitations. feeling well. feels LE edema is improving and some improvement in arms today. denies that his RUE is sore anymore, but forearm remains edematous. redness to bl forearms is greatly improved without intervention today. he can tell he has some wheezing but he isn't sob and declines further nebs - Exam Vitals: Temp Pulse Resp BP Pulse Ox 97.5 F L 68 18 143/86 97 08/06/18 07:05 08/06/18 07:05 08/06/18 07:05 08/06/18 07:05 08/06/18 07:05 Exam: gen- alert, awake,appears stated age cv- reg rate and reg rhythm, normal s1,s2, no murmurs appreciated, pitting edema to knees bl +2 and bl hands/forearms +2 lungs- ctabl, + faint exp wheezing anteriorly, rhonchi or crackles, normal resp effort on ra skin- right medial forearm faint purple/red discoloration medial aspect, improved, cannot palpate a hematoma, non tender, no increased warmth, left medial forearm ecchymosis resolved neuro- AAOx3 - Assessment and Plan (1) Acute kidney injury superimposed on CKD Current Visit: No Status: Acute Assessment and Plan: Hx of CKD stage IV and FSGS Cr 06/22/18 1.90. Cr 4.62 now with BUN 124 this admit Renal US showed a renal cyst without hydronephrosis Plan: Will monitor renal panel QD. Nephro following Dialysis as per nephro (2) Anasarca Current Visit: Yes Status: Acute Assessment and Plan: Anasarca 2/2 Nephrotic syndrome 2/2 FSGS Bumex was stopped due to mao on ckd - nephro following, steroids (will need for 12 weeks and taper as per nephro), fluid restriction, UF as per nephro (3) FSGS (focal segmental glomerulosclerosis) with nephrosis Current Visit: No Status: Chronic Assessment and Plan: as above (4) Nephrotic syndrome Current Visit: No Status: Chronic Assessment and Plan: 2/2 FSGS plan as above (5) Atrial fibrillation Current Visit: No Status: Chronic Assessment and Plan: Rate controlled Paroxysmal Afib On Dig echo EF 45% and indeterminant diastolic dysfunction, device interrogation by cards he was not on nursing home AC at home due to anemia and is pending outpt cscope, holding full AC at this time due to bleeding from RIJ site and anemia -cards has signed off Plan: -cont asa -digoxin dose reduced 08/05 due ot level and no HD planned for today, will check level wednesday and adjust as needed -cont to monitor lytes (6) Acute on chronic diastolic (congestive) heart failure Current Visit: Yes Status: Acute Assessment and Plan: Acute on Chronic Diastolic CHF echo as above No diuretics 2/2 MAO on CKD UF/HD as per nephro -cont asa, statin, BB (7) Chest pain Current Visit: Yes Status: Acute Assessment and Plan: Chest Pain is atypical and present only during HD when pt is feeling incredibly anxious While he is in Afib during these episodes it is rate controlled He has done well with Ativan prior to HD Cards evaluated and does not feel he requires further work up (8) CAD (coronary artery disease) Current Visit: No Status: Chronic Assessment and Plan: cont home meds as above (9) Diabetes mellitus Current Visit: No Status: Chronic Assessment and Plan: Hx of DM without insulin use hold home Glipizide as per nephro recs Plan: SSI prn (10) Emphysema lung Current Visit: No Status: Chronic Assessment and Plan: stable Continue home symbicort PRN nebs DVT Prophylaxis: scds only + asa given bleeding htis admit and anemia - Time Spent with Patient Total time spent is greater than 50% in coordination of care (as documented) at patient's floor/unit and/or counseling patient: less than 15 minutes Plan of Care Discussed with: patient Internal Medicine: Result - Labs CBC & Chem 7: 08/06/18 03:35 08/06/18 03:35 Labs: Short CBC 08/06/18 Range/Units 03:35 WBC 15.4 H (4.3-11.1) K/mcL Hgb 9.1 L (12.9-16.9) g/dL Hct 25.9 L (37.5-50.1) % Plt Count 180 (140-400) K/mcL BMP 08/06/18 03:35 Sodium 135 L Potassium 3.7 Chloride 101 Carbon Dioxide 25 BUN 96 H Creatinine 3.71 H Glucose 100 Calcium 7.2 L - ABG Interpretation ABG results: PT/INR, D-dimer PT 9.7 Seconds (9.4-12.1) 08/01/18 18:08 Consult Discharge Plan - Plan Referrals: [facility] [Primary Care Provider] - (5) Atrial fibrillation Qualifiers: Atrial fibrillation type: chronic Qualified Code(s): I48.2 - Chronic atrial fibrillation (7) Chest pain Qualifiers: Chest pain type: unspecified Qualified Code(s): R07.9 - Chest pain, unspecified (8) CAD (coronary artery disease) Qualifiers: Coronary Disease-Associated Artery/Lesion type: [place] artery [place] vs. transplanted heart: [place] heart Associated angina: without angina Qualified Code(s): I25.10 - Atherosclerotic heart disease of [place] coronary artery without angina pectoris (9) Diabetes mellitus Qualifiers: Diabetes mellitus type: type 2 Diabetes mellitus nursing home insulin use: without termite control service representative use Diabetes mellitus complication status: without complication Qualified Code(s): E11.9 - Type 2 diabetes mellitus without complications (10) Emphysema lung Qualifiers: Emphysema type: panlobular Qualified Code(s): J43.1 - Panlobular emphysema
--- NOTE | 2018-08-06 08:46 | Nephrology Progress Note ---
Date of Encounter: 08/06/18 Time of Encounter: 11:00 - Assessment and Plan (1) Acute kidney injury superimposed on CKD Current Visit: No Status: Acute Nonoliguric MAO secondary to renal biopsy-proven FSGS and associated with nephrotic syndrome with anasarca. His last HD was Wednesday. He has not tolerated dialysis treatments well with associated anxiety and palpitations. I suspect that if he does not show signs of recovery by early next week, he will need a permacath placed. Aspirin, and other anticoagulants will have to be held approximately 5 days prior before permacath can be placed according to the [facility]. Continue to follow a renal protective strategy as able including dosing renally cleared medications by creatinine clearance / GFR, and avoiding nephrotoxic agents as able. Strict I's and O's and daily weights are recommended as well. His next tentative dialysis treatment will be Wednesday, if needed. I will be available tomorrow if needed. Thank you. (2) Nephrotic syndrome Current Visit: No Status: Chronic (3) FSGS (focal segmental glomerulosclerosis) with nephrosis Current Visit: No Status: Chronic (4) Anasarca Current Visit: Yes Status: Acute Subjective Principal diagnosis: MAO on CKD Interval history: The patient was seen this AM while getting a bath (which limited in part my exam to visual findings). He did not affirm active nausea, vomiting, palpitations, or diarrhea. Objective - Vital Signs Vital signs: Vital Signs Temp Pulse Resp BP Pulse Ox 08/06/18 07:05 97.5 F L 68 18 143/86 97 08/06/18 05:08 97.6 F 74 18 164/93 96 08/06/18 03:28 16 97 08/06/18 00:35 97.2 F L 75 18 114/96 96 08/05/18 21:42 18 93 08/05/18 19:56 98.1 F 78 18 141/80 96 08/05/18 16:35 98.2 F 90 18 133/85 95 08/05/18 16:24 17 94 08/05/18 14:30 97.3 F L 19 113/58 08/05/18 14:20 81/38 08/05/18 14:05 140/74 08/05/18 13:50 152/92 08/05/18 13:35 146/79 08/05/18 13:20 168/75 08/05/18 13:05 144/82 08/05/18 12:50 98.0 F 17 132/58 08/05/18 11:22 98.0 F 69 18 143/74 97 08/05/18 10:39 16 97 Intake and Output 08/05/18 08/06/18 08/06/18 23:59 07:59 15:59 Intake Total 440 / 440 Output Total 100 / 100 375 / 375 Balance 340 / 340 -375 / -375 Intake: Oral 440 / 440 Output: Urine 100 / 100 375 / 375 Other: Meal Dinner Percent of Meal Consumed 100% Weight 78.8 kg Blood Glucose* 202 89 Patient Weight 08/06/18 23:59 Weight 78.8 kg - General Appearance General appearance: Present: well-developed, cachectic, chronically ill, fatigue, frail EENT: Present: ATNC Dialysis Vascular Access: Venous Catheter (RIJ with dressing clean appearing) Neurologic: Present: alert and oriented x3 Psychiatric: Present: mood/affect appropriate, cooperative - Lab 08/06/18 03:35 08/06/18 03:35 Most recent lab results Calcium 7.2 mg/dL (8.6-10.3) L 08/06/18 03:35 Phosphorus 9.6 mg/dL (2.7-4.5) H 07/30/18 06:19 Magnesium 2.6 mg/dL (1.6-2.6) 08/04/18 06:03 Urine Creatinine 60 mg/dL 07/27/18 23:45 Urine Sodium 53.9 mEq/L 07/27/18 23:45 Urine Total Protein 876 mg/dL (1-14) H 07/27/18 23:45 Consult Discharge Plan - Plan [facility]errals: [facility] [Primary Care Provider] -
[2018-08-06] MEDS: Budesonide/Formoterol 160/4.5 1 PUFF INH IH SCH ×2 (10:27→22:33)
--- NOTE | 2018-08-06 15:47 | Event Note ---
Date of Encounter: 08/06/18 Time of Encounter: 15:30 Notified by cardio of RUE US preformed and acute DVT of the right jugular vein, no other vein dvt noted. Partial thrombus formed around the catheter in the RIJ. Formal report not yet documented. RIJ temp HD access placed 08/01 by IR. I have contacted IR and discussed over phone. There is no intervention regarding line needed and it is safe to remain in place at this time and is okay to use. When it is time to remove line it can be removed with repeat UE US done. I have a message out to nephro to update. I have discussed with pt and his . We will begin AC with hep gtt and monitor closely for bleeding given his history. It is possible he may not tolerate anticoagulation. There is NOT concern for actue subclavian vein thrombosis as he has no s/s of PE and no acute neurologic deficits. Will check a limited echo for clot as well. As d/w IR he does not require further imaging of veins. RN updated as well
[2018-08-06] MEDS ORDERED: *HR* Heparin 5,000 UNIT/ML VIAL IVP ONE (15:51)
[2018-08-06] MEDS ORDERED: *HR* Heparin 5,000 UNIT/ML VIAL IVP PRN ×2 (15:51)
[2018-08-06 17:22] LABS: Hematocrit 24.3 % (37.5-50.1); Hemoglobin 8.5 g/dL (12.9-16.9); Mean Corpuscular Hemoglobin 32.6 pg (28.0-33.3); Mean Corpuscular Volume 93.1 fL (83.0-100.0); Mean Platelet Volume 10.7 fL (9.4-12.4); Platelet Count 195 K/mcL (140-400); Red Blood Count 2.61 M/mcL (4.19-5.50); Red Cell Distribution Width 13.9 % (11.5-14.5)
[2018-08-06 17:30] LABS: Prothrombin Time 10.8 Seconds (9.4-12.1)
[2018-08-06] MEDS ORDERED: Warfarin perPT PO PRN (18:00)
[2018-08-06] MEDS ORDERED: *HR* Warfarin 2 MG TABLET PO ONE (18:00)
[2018-08-06] MEDS: Heparin 25,000 UNIT/500 ML D5W 25,000 UNIT/500 ML BAG IVC SCH (18:23)
[2018-08-07] MEDS ORDERED: *HR* Metoprolol 5 MG/5 ML VIAL IVP PRN (01:15)
[2018-08-07] MEDS: Albuterol 2.5 MG/3 ML NEBULIZER IH SCH ×4 (03:37→22:10)
[2018-08-07 06:39] LABS: Basophils % 0.1 %; Eosinophils % 0.1 %; Hematocrit 26.5 % (37.5-50.1); Hemoglobin 9.4 g/dL (12.9-16.9); Immature Granulocytes % 1.3 % (0-4); Immature Platelets 2.5 % (1.1-6.1); Lymphocytes # 1.3 K/mcL (0.6-4.6); Lymphocytes % 7.9 %; Mean Corpuscular HGB Conc 35.5 g/dL (31.6-35.5); Mean Corpuscular Hemoglobin 32.9 pg (28.0-33.3); Mean Corpuscular Volume 92.7 fL (83.0-100.0); Mean Platelet Volume 10.5 fL (9.4-12.4); Monocytes % 6.4 %; Neutrophils # 13.3 K/mcL (1.6-8.9); Platelet Count 189 K/mcL (140-400); Red Blood Count 2.86 M/mcL (4.19-5.50); Red Cell Distribution Width 13.5 % (11.5-14.5); Segmented Neutrophils % 84.2 %
[2018-08-07 06:51] LABS: Prothrombin Time 10.7 Seconds (9.4-12.1)
[2018-08-07 07:02] LABS: Calcium 7.2 mg/dL (8.6-10.3); Potassium 3.9 mEq/L (3.5-5.1)
[2018-08-07] MEDS ORDERED: Perflutren Lipid Microsphere 1.3 ML in 0.9 % Sodium Chloride 8.7 ML IVP ONE ×2 (07:15→11:43)
--- NOTE | 2018-08-07 07:52 | Internal Med Progress Note ---
Hospitalist Progress Note - Encounter Date of Encounter: 08/07/18 Time of Encounter: 09:00 - Subjective Interval History: awake, rn at bed[place]ide. no family present BP elevated overnight, down this morning. no real, chest pain, palpitations or presyncope. no evidence of bleeding on heparin gtt. + wheezing but no cough, no sob at pt notes wheezing at baseline, not bothering him - Exam Vitals: Temp Pulse Resp BP Pulse Ox 98.0 F 58 18 137/73 93 08/07/18 07:38 08/07/18 07:38 08/07/18 07:38 08/07/18 07:38 08/07/18 07:38 Exam: gen- alert, awake,appears stated age cv- reg rate and irreg/irreg rhythm, normal s1,s2, no murmurs appreciated, pitting edema to knees bl +2 and bl hands/forearms +2 lungs- ctabl, + faint exp wheezing posteriorly,no rhonchi or crackles, normal resp effort on ra skin- right medial forearm skin discolaration resovled neuro- AAOx3 - Assessment and Plan (1) Acute kidney injury superimposed on CKD Current Visit: No Status: Acute Assessment and Plan: Hx of CKD stage IV and FSGS Cr 06/22/18 1.90. Cr 4.62 now with BUN 124 this admit Renal US showed a renal cyst without hydronephrosis Plan: Will monitor renal panel QD. Nephro following Dialysis as per nephro- next session tentatively tuesday 08/08 (2) Anasarca Current Visit: Yes Status: Acute Assessment and Plan: Anasarca 2/2 Nephrotic syndrome 2/2 FSGS Bumex was stopped due to mao on ckd - nephro following, steroids (will need for 12 weeks and taper as per nephro), fluid restriction, UF as per nephro (3) FSGS (focal segmental glomerulosclerosis) with nephrosis Current Visit: No Status: Chronic Assessment and Plan: as above (4) Nephrotic syndrome Current Visit: No Status: Chronic Assessment and Plan: 2/2 FSGS plan as above (5) Atrial fibrillation Current Visit: No Status: Chronic Assessment and Plan: Rate controlled Paroxysmal Afib On Dig echo EF 45% and indeterminant diastolic dysfunction, device interrogation by cards 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 not on 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 at home due to anemia and is pending outpt cscope, held full AC due to bleeding from RIJ site and anemia now with new RIJ thrombis on hep gtt with plan to transition to oral agent later this admission prior to discharge -cards has signed off Plan: -cont asa, hep gtt for RIJ thrombus -digoxin dose reduced 08/05 due ot level and no HD planned for today, will check level wednesday and adjust as needed -cont to monitor lytes (6) Acute on chronic diastolic (congestive) heart failure Current Visit: Yes Status: Acute Assessment and Plan: Acute on Chronic Diastolic CHF echo as above No diuretics 2/2 MAO on CKD UF/HD as per nephro -cont asa, statin, BB (7) Chest pain Current Visit: Yes Status: Acute Assessment and Plan: Chest Pain is atypical and present only during HD when pt is feeling incredibly anxious While he is in Afib during these episodes it is rate controlled He has done well with Ativan prior to HD Cards evaluated and does not feel he requires further work up (8) CAD (coronary artery disease) Current Visit: No Status: Chronic Assessment and Plan: cont home meds as above (9) Diabetes mellitus Current Visit: No Status: Chronic Assessment and Plan: Hx of DM without insulin use hold home Glipizide as per nephro recs Plan: SSI prn (10) Emphysema lung Current Visit: No Status: Chronic Assessment and Plan: stable Continue home symbicort PRN nebs (11) Jugular vein thrombosis, right Current Visit: Yes Status: Acute Assessment and Plan: Identified on RUE US for edema > LUE on 08/06 Discussed with IR findings and okay to leave line in and use, no OR intervention required AC initiated 08/06 after discussion with pt and his Plan: -cont hep gtt -oral agent not started yet given may need line change prior to DC and would have to hold oral agent -will have to discuss with nephro recommended oral agent to transition to given his renal function, pt does not prefer warfarin as hard time maintaining therapeutic levels in past -monitor for bleeding, has had none thus far DVT Prophylaxis: hep gtt - Time Spent with Patient Total time spent is greater than 50% in coordination of care (as documented) at patient's floor/unit and/or counseling patient: less than 15 minutes Plan of Care Discussed with: patient Internal Medicine: Result - Labs CBC & Chem 7: 08/07/18 06:30 08/07/18 06:30 Labs: Short CBC 08/06/18 08/07/18 Range/Units 15:51 06:30 WBC 12.6 H 15.8 H (4.3-11.1) K/mcL Hgb 8.5 L 9.4 L (12.9-16.9) g/dL Hct 24.3 L 26.5 L (37.5-50.1) % Plt Count 195 189 (140-400) K/mcL Neutrophils # 13.3 H (1.6-8.9) K/mcL BMP 08/07/18 06:30 Sodium 135 L Potassium 3.9 Chloride 101 Carbon Dioxide 24 BUN 102 H Creatinine 3.88 H Glucose 143 H Calcium 7.2 L - ABG Interpretation ABG results: PT/INR, D-dimer PT 10.7 Seconds (9.4-12.1) 08/07/18 06:30 Consult Discharge Plan - Plan [facility]errals: [facility] [Primary Care Provider] - (5) Atrial fibrillation Qualifiers: Atrial fibrillation type: chronic Qualified Code(s): I48.2 - Chronic atrial fibrillation (7) Chest pain Qualifiers: Chest pain type: unspecified Qualified Code(s): R07.9 - Chest pain, unspecified (8) CAD (coronary artery disease) Qualifiers: Coronary Disease-Associated Artery/Lesion type: [place] artery [place] vs. 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
[2018-08-07] MEDS: Insulin LISPRO 300 UNITS/3 ML VIAL SQ SCH ×3 (08:18→16:41)
[2018-08-07] MEDS: Sennosides 8.6 MG TABLET PO SCH (08:19)
[2018-08-07] MEDS: Aspirin Enteric Coated 81 MG Tablet PO SCH (08:19)
[2018-08-07] MEDS: predniSONE 20 MG TABLET PO SCH (08:19)
[2018-08-07] MEDS: *HR* Digoxin 0.125 MG TABLET PO SCH (08:20)
[2018-08-07] MEDS: Budesonide/Formoterol 160/4.5 1 PUFF INH IH SCH ×2 (09:51→22:10)
--- NOTE | 2018-08-07 10:41 | Event Note ---
Date of Encounter: 08/07/18 Time of Encounter: 10:40 - Nephrology Event Note Nephrology chart update I recommend his next treatment for Wednesday to be fore tomorrow. I would be happy to help with any questions today on Wednesday and please feel free to page or call me. Thank you.
[2018-08-07] MEDS: Heparin 25,000 UNIT/500 ML D5W 25,000 UNIT/500 ML BAG IVC SCH (16:41)
[2018-08-08] MEDS: Albuterol 2.5 MG/3 ML NEBULIZER IH SCH ×4 (04:11→21:55)
[2018-08-08 04:41] LABS: Basophils % 0.1 %; Hematocrit 23.7 % (37.5-50.1); Hemoglobin 8.3 g/dL (12.9-16.9); Immature Granulocytes % 1.5 % (0-4); Lymphocytes # 1.1 K/mcL (0.6-4.6); Lymphocytes % 7.4 %; Mean Corpuscular Hemoglobin 32.3 pg (28.0-33.3); Mean Corpuscular Volume 92.2 fL (83.0-100.0); Mean Platelet Volume 10.6 fL (9.4-12.4); Monocytes # 0.9 K/mcL (0.0-1.3); Monocytes % 6.4 %; Neutrophils # 12.1 K/mcL (1.6-8.9); Platelet Count 186 K/mcL (140-400); Red Blood Count 2.57 M/mcL (4.19-5.50); Red Cell Distribution Width 13.5 % (11.5-14.5); Segmented Neutrophils % 84.6 %
[2018-08-08 05:07] LABS: Potassium 3.8 mEq/L (3.5-5.1)
[2018-08-08] MEDS ORDERED: 0.9 % Sodium Chloride 250 ML IVC PRN (07:15)
[2018-08-08] MEDS ORDERED: 0.9 % Sodium Chloride 2,000 ML ONE (08:36)
[2018-08-08] MEDS: Insulin LISPRO 300 UNITS/3 ML VIAL SQ SCH ×3 (08:43→18:06)
[2018-08-08] MEDS: Aspirin Enteric Coated 81 MG Tablet PO SCH (08:43)
[2018-08-08] MEDS: Sennosides 8.6 MG TABLET PO SCH (08:43)
[2018-08-08] MEDS: predniSONE 20 MG TABLET PO SCH (08:44)
--- NOTE | 2018-08-08 08:44 | Internal Med Progress Note ---
<Tiffani Dixon - Last Filed: 08/08/18 09:37> Hospitalist Progress Note - Encounter Date of Encounter: 08/08/18 - Exam Vitals: Temp Pulse Resp BP Pulse Ox 97.6 F 78 18 121/58 96 08/08/18 07:36 08/08/18 08:33 08/08/18 07:36 08/08/18 07:36 08/08/18 07:36 - Assessment and Plan (1) Acute kidney injury superimposed on CKD Current Visit: No Status: Acute (2) Anasarca Current Visit: Yes Status: Acute (3) FSGS (focal segmental glomerulosclerosis) with nephrosis Current Visit: No Status: Chronic (4) Nephrotic syndrome Current Visit: No Status: Chronic (5) Atrial fibrillation Current Visit: No Status: Chronic (6) Acute on chronic diastolic (congestive) heart failure Current Visit: Yes Status: Acute (7) Chest pain Current Visit: Yes Status: Acute (8) CAD (coronary artery disease) Current Visit: No Status: Chronic (9) Diabetes mellitus Current Visit: No Status: Chronic (10) Emphysema lung Current Visit: No Status: Chronic (11) Jugular vein thrombosis, right Current Visit: Yes Status: Acute - Time Spent with Patient Total time spent is greater than 50% in coordination of care (as documented) at patient's floor/unit and/or counseling patient: Internal Medicine: Result - Labs CBC & Chem 7: 08/08/18 04:20 08/08/18 04:20 Labs: Short CBC 08/08/18 Range/Units 04:20 WBC 14.3 H (4.3-11.1) K/mcL Hgb 8.3 L (12.9-16.9) g/dL Hct 23.7 L (37.5-50.1) % Plt Count 186 (140-400) K/mcL Neutrophils # 12.1 H (1.6-8.9) K/mcL BMP 08/08/18 04:20 Sodium 133 L Potassium 3.8 Chloride 101 Carbon Dioxide 21 L BUN 108 H Creatinine 3.98 H Glucose 124 H Calcium 7.0 L - ABG Interpretation ABG results: PT/INR, D-dimer PT 10.7 Seconds (9.4-12.1) 08/07/18 06:30 - Impressions Impressions Echocardiogram Limited Views 08/06/18 15:24 Impressions: [id number]%. There is no LV thrombus. Left Ventricular Wall Motion: Rest Echo Findings The apex, apical inferior, mid inferior, basal inferior, apical anterior, mid anterior, basal anterior, apical septal, mid inferior septal, basal inferior septal, apical lateral, mid anterior lateral, basal anterior lateral, mid anterior septal, mid inferior lateral, basal anterior septal and basal inferior lateral petit were hypokinetic. Findings: Study Quality * Technically sub-optimal due to poor echocardiographic windows. ECG Findings * Atrial fibrillation. Left Ventricle * [id number]%. * There is no LV thrombus. * Definity echo contrast was used. Right Ventricle * Normal right ventricular structure and function. Consult Discharge Plan - Plan Referrals: [facility] [Primary Care Provider] - - Attending Attestation I examined this patient and my medical decision-making was reviewed with the Resident Physician Dr Bergeron. I agree with the documented findings, disposition and treatment plan as described except to the extent set forth below. Mr Dumont is currently admitted for acute on chronic renal failure and anasarca. Found to have RIJ thrombus Mr Dumont is awake eating breakfast. slept well. prepared for HD today. RUE without pain. le edema conts to improve gen- alert, awake,appears stated age cv- reg rate and reg rhythm, normal s1,s2, no murmurs appreciated, pitting edema to knees bl +2 and bl hands/forearms +2 lungs- ctabl, no wheezing, rhonchi or crackles , normal resp effort on ra neuro- AAOx3, sensation to light touch intact rue 1. MAO on CKD (stage unknown)- HD as per nephro 2. Anasarca 2/2 Nephrotic syndrome 2/2 FSGS- nephro following, steroids (will need for 12 weeks and taper as per nephro), fluid restriction, UF as per nephro 3 Chest pain may have been 2/2 Afib in HD, Hx cabg 2017, now resolved pain and rate controlled Paroxysmal afib - cards followed and did not think afib caused pain, not concerned for cardiac cause, he was not on senior care AC at home due to anemia and is pending outpt cscope, held full AC due to bleeding from RIJ site and anemia now with new RIJ thrombis on hep gtt with plan to transition to oral agent later this admission prior to discharge 4. Acute on Chronic Diastolic CHF- fluid management as per nephro 5. RIJ DVT- hep gtt (may need line change prior to dc so not on oral at this time, as well as close monitoring for bleeding given his hx), echo report reviewed and no thrombus Further diagnoses and plan as noted by resident <Soraya Bergeron R - Last Filed: 08/08/18 14:21> Hospitalist Progress Note - Encounter Date of Encounter: 08/08/18 Time of Encounter: 08:42 - Subjective Interval History: Pt has been having high BP but has been asymptomatic. 5mg Lopressor given with good effect. Plan to have dialysis again today. Spoke with Dr. Santiago who states senior care dialysis may be the next decision point and he would consider getting a permacath if the patient's kidneys do not show signs of improvement by Kelvin hernandez. Pt has no requests at this time. Pt also on Heparin ggt, will closely monitory H&H as there is a history of bleeding. If drops again will undergo further testing to look for bleed and see patient's anticoagulation options for the future. - Exam Vitals: Temp Pulse Resp BP Pulse Ox 97.6 F 78 18 121/58 96 08/08/18 07:36 08/08/18 08:33 08/08/18 07:36 08/08/18 07:36 08/08/18 07:36 Exam: Constitutional - alert and pleasant, in NAD. HEENT - PERRL. EOMI. No obvious edema of face or neck. Neck non-tender to palpation without LAD. Cardio - irregular rhythm, normal rate, no audible murmurs. Respiratory - Lungs without focal areas of consolidation, wheezes rhonchi or rales. Abdomen - soft, nontender to palpation without rebound, guarding or rigidity. Scar from previous hernia repair without complications. Edema of abdomen slightly improved post HUF yesterday. Extremities - Stable edema of B/L UE with 2+ pitting edema. Stable edema of his B/L lower extremities. RUE no longer tender to palpation. Skin - no visible rashes or skin breakdown. Area of erythema on right upper arm proximal to the elbow. Not warm to touch or draining any fluid. Neuro - a&o x3, follow commands. Good strength and sensation in all extremities. - Assessment and Plan (1) Anasarca Current Visit: Yes Status: Acute Assessment and Plan: Due to volume overload and MAO on CKD, possibly prerenal due to CHF. Plan: Bumex held due to worsening kidney function Continue steroids Dialysis per nephro - cont prn ativan prior to tx Nephrology following (2) Acute kidney injury superimposed on CKD Current Visit: No Status: Acute Assessment and Plan: Hx of CKD stage IV and FSGS - significant worsening for past week with 5lb wt gain Cr 06/22/18 1.90. Cr 3.98 now with BUN 108. Plan: Will monitor renal panel QD. Bumex held due to worsening kidney fxn Nephro following Renal US showed a renal cyst without hydronephrosis Dialysis (3) Nephrotic syndrome Current Visit: No Status: Chronic Assessment and Plan: Hx FSGS s/p cardiac cath in January 2018 Increased swelling of extremities Kidney panel shows Cre 4.01 with u protein of 876, increased from visit in june Plan: As above (4) Acute on chronic diastolic (congestive) heart failure Current Visit: Yes Status: Acute Assessment and Plan: Acute on Chronic Diastolic CHF echo with EF 40-45%, no evidence of thrombus No diuretics 2/2 MAO on CKD UF/HD as per nephro -cont asa, statin, BB (5) Chest pain Current Visit: Yes Status: Acute Assessment and Plan: Chest pain with dialysis x2 trials Both times with afib Likely secondary to afib from irritation with dialysis catheter Cardio consulted Echo unchanged from previous, pacer working, afib rate controlled - cardio has signed off Ativan prn prior to dialysis will also be initiated (6) Atrial fibrillation Current Visit: No Status: Chronic Assessment and Plan: On Dig - level 0.8 this am, will decrease dose and continue to monitor if cannot tolerate dialysis today EKG shows afib with paced rhythm Plan: Digoxin Monitor levels and HR Cardio consulted - they state it continues to be rate controlled and have signed off as a cause of his chest pain (7) CAD (coronary artery disease) Current Visit: No Status: Chronic Assessment and Plan: Continue home ASA 325 mg, Coreg, and statin. (8) Emphysema lung Current Visit: No Status: Chronic Assessment and Plan: CXR improved from previous Continue home symbicort PRN nebs but not in acute COPD exacerbation. (9) Diabetes mellitus Current Visit: No Status: Chronic Assessment and Plan: Hx of DM without insulin use Plan: Continue home Glipizide 2.5 mg SSI if needed while in hospital (10) Jugular vein thrombosis, right Current Visit: Yes Status: Acute Assessment and Plan: Identified on RUE US for edema > LUE on 08/06 Discussed with IR findings and okay to leave line in and use, no OR intervention required AC initiated 08/06 after discussion with pt and his Plan: -cont hep gtt -oral agent not started yet given may need line change prior to DC and would have to hold oral agent -will have to discuss with nephro recommended oral agent to transition to given his renal function, pt does not prefer warfarin as hard time maintaining therapeutic levels in past -monitor for bleeding, has had none thus far DVT Prophylaxis: Heparin ggt - Time Spent with Patient Total time spent is greater than 50% in coordination of care (as documented) at patient's floor/unit and/or counseling patient: Internal Medicine: Result - Labs CBC & Chem 7: 08/08/18 04:20 08/08/18 04:20 Labs: Short CBC 08/08/18 Range/Units 04:20 WBC 14.3 H (4.3-11.1) K/mcL Hgb 8.3 L (12.9-16.9) g/dL Hct 23.7 L (37.5-50.1) % Plt Count 186 (140-400) K/mcL Neutrophils # 12.1 H (1.6-8.9) K/mcL BMP 08/08/18 04:20 Sodium 133 L Potassium 3.8 Chloride 101 Carbon Dioxide 21 L BUN 108 H Creatinine 3.98 H Glucose 124 H Calcium 7.0 L - ABG Interpretation ABG results: PT/INR, D-dimer PT 10.7 Seconds (9.4-12.1) 08/07/18 06:30 - Impressions Impressions Echocardiogram Limited Views 08/06/18 15:24 Impressions: [id number]%. There is no LV thrombus. Left Ventricular Wall Motion: Rest Echo Findings The apex, apical inferior, mid inferior, basal inferior, apical anterior, mid anterior, basal anterior, apical septal, mid inferior septal, basal inferior septal, apical lateral, mid anterior lateral, basal anterior lateral, mid anterior septal, mid inferior lateral, basal anterior septal and basal inferior lateral petit were hypokinetic. Findings: Study Quality * Technically sub-optimal due to poor echocardiographic windows. ECG Findings * Atrial fibrillation. Left Ventricle * [id number]%. * There is no LV thrombus. * Definity echo contrast was used. Right Ventricle * Normal right ventricular structure and function. <Tiffani Dixon M - Last Filed: 08/08/18 09:37> (5) Atrial fibrillation Qualifiers: Atrial fibrillation type: chronic Qualified Code(s): I48.2 - Chronic atrial fibrillation (7) Chest pain Qualifiers: Chest pain type: unspecified Qualified Code(s): R07.9 - Chest pain, unspecified (8) CAD (coronary artery disease) Qualifiers: Coronary Disease-Associated Artery/Lesion type: [place] artery [place] vs. 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: without senior care use Diabetes mellitus complication status: without complication Qualified Code(s): E11.9 - Type 2 diabetes mellitus without complications (10) Emphysema lung Qualifiers: Emphysema type: panlobular Qualified Code(s): J43.1 - Panlobular emphysema <Soraya Bergeron R - Last Filed: 08/08/18 14:21> (5) Chest pain Qualifiers: Chest pain type: unspecified Qualified Code(s): R07.9 - Chest pain, unspecified (6) Atrial fibrillation Qualifiers: Atrial fibrillation type: chronic Qualified Code(s): I48.2 - Chronic atrial fibrillation (7) CAD (coronary artery disease) Qualifiers: Coronary Disease-Associated Artery/Lesion type: [place] artery [place] vs. transplanted heart: [place] heart Associated angina: without angina Qualified Code(s): I25.10 - Atherosclerotic heart disease of [place] coronary artery without angina pectoris (8) Emphysema lung Qualifiers: Emphysema type: panlobular Qualified Code(s): J43.1 - Panlobular emphysema (9) Diabetes mellitus Qualifiers: Diabetes mellitus type: type 2 Diabetes mellitus senior care insulin use: without senior care use Diabetes mellitus complication status: without complication Qualified Code(s): E11.9 - Type 2 diabetes mellitus without complications
[2018-08-08] MEDS: *HR* LORazepam 2 MG/ML VIAL IVP PRN ×2 (10:06→11:59)
[2018-08-08] MEDS ORDERED: *HR* Heparin 10,000 UNIT/10 ML VIAL IV PRN (10:19)
--- NOTE | 2018-08-08 10:37 | Nephrology Progress Note ---
Addendum entered and electronically signed by Jack Calvillo DO 08/08/18 19:39: I have personally performed a face to face evaluation on this patient. I have reviewed and agree with the care plan. History and Exam by me shows: He will require further dialysis today for his rapidly progressive GN (renal biopsy-proven FSGS) and most likely he will need chronic dialysis. Please hold aspirin or Plavix or other anticoagulants for 5 days. He should be made nothing by mouth Wednesday night, and Wednesday morning assuming his renal function has not spontaneously started to improve, I would recommend he undergo permacath placement as well as his next dialysis treatment on Wednesday. We have consulted the SW to help arrange an outpt HD chair. This patient has ongoing edema on exam. I spent significant evaluation and management, complex medical decision making, and a long family meeting with his spouse regarding his renal prognosis. We will continue to follow with you. Original Note: Date of Encounter: 08/08/18 Time of Encounter: 10:34 - Assessment and Plan (1) Acute kidney injury superimposed on CKD Current Visit: No Status: Acute HD in progress for today. Nonoliguric MAO secondary to renal biopsy-proven FSGS and associated with nephrotic syndrome with anasarca. His last HD was Wednesday. He has not tolerated dialysis treatments well with associated anxiety and palpitations. If no signs of renal recovery noted by Wednesday will make patient nothing by mouth Wednesday and request permacath on Wednesday. media services specialist consult placed for outpatient dialysis. Continue to follow a renal protective strategy as able including dosing renally cleared medications by creatinine clearance / GFR, and avoiding nephrotoxic agents as able. Strict I's and O's and daily weights are recommended as well. (2) FSGS (focal segmental glomerulosclerosis) with nephrosis Current Visit: No Status: Chronic Biopsy proven, appears idiopathic with negative malignancy workup Agree with steroids resumed. Had good response previously. (3) Anasarca Current Visit: Yes Status: Acute Secondary to the Nephrotic syndrome which is secondary to the FSGS. HD for UF and clearance. (4) Nephrotic syndrome Current Visit: No Status: Chronic I recomend a fluid restriction, Low Na diet, and I recommend statin and when able to have him on an KENDRA or ARB (the later two currently held d/t the MAO). (5) Panic attacks Current Visit: Yes Status: Acute Patient is having a hard time tolerating HD sessions. Has been given by mouth Ativan with last couple sessions and he has only completed approximately an hour and a half. Would suggest BuSpar for long-term management by primary team or a psychiatry evaluation. (6) Jugular vein thrombosis, right Current Visit: Yes Status: Acute Identified on RUE US for edema > LUE on 08/06. Discussed with IR findings and okay to leave line in and use, no OR intervention required Per primary. Subjective Principal diagnosis: MAO on CKD Interval history: Seen and examined in HD, tolerating well this point. Encouraged patient to try to relax during HD and see how long he can tolerate it. Denies shortness of breath or chest pain. Denies nausea, vomiting, diarrhea. Continues to be on heparin drip. Objective - Vital Signs Vital signs: Vital Signs Temp Pulse Resp BP Pulse Ox 08/08/18 08:33 78 08/08/18 07:36 97.6 F 51 18 121/58 96 08/08/18 04:20 63 08/08/18 04:12 18 95 08/08/18 03:41 97.8 F 80 18 117/80 96 08/07/18 23:44 98 F 73 20 113/97 95 08/07/18 23:30 73 08/07/18 22:10 16 96 08/07/18 20:00 80 08/07/18 19:40 98 F 63 20 118/51 96 08/07/18 15:57 97.5 F L 61 18 137/64 99 08/07/18 15:45 16 94 08/07/18 11:00 98.1 F 94 16 137/71 94 Intake and Output 08/07/18 08/08/18 08/08/18 23:59 07:59 15:59 Intake Total 465 / 465 410 / 410 226 / 226 Output Total 200 / 200 Balance 265 / 265 410 / 410 226 / 226 Intake: IV Fluids 145 / 145 110 / 110 Heparin 25,000 UNIT/500 ML D5W 145 / 145 110 / 110 25,000 unit In 500 ml @ 14 UNIT /KG/HR 22.064 mls/hr IVC . [id number] [facility] Rx#:[id number] Oral 320 / 320 300 / 300 226 / 226 Output: Urine 200 / 200 Other: Meal Dinner Breakfast Percent of Meal Consumed 80% 100% Weight 79.4 kg Blood Glucose* 185 105 Patient Weight 08/08/18 23:59 Weight 79.4 kg - General Appearance General appearance: Present: fatigue, frail EENT: Present: ATNC, hearing intact, vision intact Neck: Present: supple Respiratory: Present: clear Cardiology: Present: edema (+3 pitting edema noted to bilateral upper extremities. +2 pitting edema noted to bilateral lower extremities.), normal S1, normal S2 Dialysis Vascular Access: Venous Catheter Additional Comments: Dressing clean dry and intact. Gastrointestinal: Present: normoactive bowel sounds, no tenderness, no guarding Integumentary: Present: no rash, warm and dry Neurologic: Present: alert and oriented x3 Musculoskeletal: Present: no deformities, no erythema Psychiatric: Present: mood/affect appropriate - Lab 08/08/18 04:20 08/08/18 04:20 Most recent lab results Calcium 7.0 mg/dL (8.6-10.3) L 08/08/18 04:20 Phosphorus 9.6 mg/dL (2.7-4.5) H 07/30/18 06:19 Magnesium 2.4 mg/dL (1.6-2.6) 08/07/18 06:30 Urine Creatinine 60 mg/dL 07/27/18 23:45 Urine Sodium 53.9 mEq/L 07/27/18 23:45 Urine Total Protein 876 mg/dL (1-14) H 07/27/18 23:45 Consult Discharge Plan - Plan [facility]errals: [facility] [Primary Care Provider] -
[2018-08-08] MEDS: Budesonide/Formoterol 160/4.5 1 PUFF INH IH SCH ×2 (10:53→21:54)
[2018-08-09] MEDS: Heparin 25,000 UNIT/500 ML D5W 25,000 UNIT/500 ML BAG IVC SCH (01:34)
[2018-08-09] MEDS: Melatonin 3 MG TABLET PO PRN ×2 (02:37→21:23)
[2018-08-09] MEDS: Albuterol 2.5 MG/3 ML NEBULIZER IH SCH ×4 (03:30→22:11)
[2018-08-09 04:55] LABS: Hematocrit 23.7 % (37.5-50.1); Hemoglobin 8.1 g/dL (12.9-16.9); Mean Corpuscular HGB Conc 34.2 g/dL (31.6-35.5); Mean Corpuscular Volume 93.7 fL (83.0-100.0); Mean Platelet Volume 10.5 fL (9.4-12.4); Platelet Count 175 K/mcL (140-400); Red Blood Count 2.53 M/mcL (4.19-5.50); Red Cell Distribution Width 13.5 % (11.5-14.5)
[2018-08-09 05:05] LABS: Albumin 1.5 g/dL (3.5-5.7); Phosphorous 5.2 mg/dL (2.7-4.5)
--- NOTE | 2018-08-09 07:13 | Internal Med Progress Note ---
<Tiffani Dixon - Last Filed: 08/09/18 14:32> Hospitalist Progress Note - Encounter Date of Encounter: 08/09/18 - Exam Vitals: Temp Pulse Resp BP Pulse Ox 98.3 F 57 16 136/76 97 08/09/18 11:17 08/09/18 11:17 08/09/18 11:17 08/09/18 11:17 08/09/18 11:17 - Assessment and Plan (1) Acute kidney injury superimposed on CKD Current Visit: No Status: Acute (2) Anasarca Current Visit: Yes Status: Acute (3) FSGS (focal segmental glomerulosclerosis) with nephrosis Current Visit: No Status: Chronic (4) Nephrotic syndrome Current Visit: No Status: Chronic (5) Atrial fibrillation Current Visit: No Status: Chronic (6) Acute on chronic diastolic (congestive) heart failure Current Visit: Yes Status: Acute (7) Chest pain Current Visit: Yes Status: Acute (8) CAD (coronary artery disease) Current Visit: No Status: Chronic (9) Diabetes mellitus Current Visit: No Status: Chronic (10) Emphysema lung Current Visit: No Status: Chronic (11) Jugular vein thrombosis, right Current Visit: Yes Status: Acute - Time Spent with Patient Total time spent is greater than 50% in coordination of care (as documented) at patient's floor/unit and/or counseling patient: Internal Medicine: Result - Labs CBC & Chem 7: 08/09/18 04:35 08/09/18 04:35 Labs: Short CBC 08/09/18 Range/Units 04:35 WBC 14.3 H (4.3-11.1) K/mcL Hgb 8.1 L (12.9-16.9) g/dL Hct 23.7 L (37.5-50.1) % Plt Count 175 (140-400) K/mcL BMP 08/09/18 04:35 Sodium 135 L Potassium 4.0 Chloride 102 Carbon Dioxide 24 BUN 68 H Creatinine 3.50 H Glucose 121 H Calcium 7.0 L Liver Function 08/09/18 Range/Units 04:35 Albumin 1.5 L (3.5-5.7) g/dL - ABG Interpretation ABG results: PT/INR, D-dimer PT 10.7 Seconds (9.4-12.1) 08/07/18 06:30 Consult Discharge Plan - Plan [facility]errals: [facility] [Primary Care Provider] - - Attending Attestation I examined this patient and my medical decision-making was reviewed with the Resident Physician Dr Bergeron. I agree with the documented findings, disposition and treatment plan as described except to the extent set forth below. Mr Dumont is currently admitted for acute on chronic renal failure and anasarca. Found to have RIJ thrombus Mr Dumont is awake. at bedside. no cp, sob. rue edema improving, worsened edema bl legs today gen- alert, awake,appears stated age cv- reg rate and reg rhythm, normal s1,s2, no murmurs appreciated, pitting edema to knees bl +2 and bl hands/forearms +1 lungs- ctabl, no wheezing, rhonchi or crackles , normal resp effort on ra neuro- AAOx3 1. MAO on CKD (stage unknown)- temp HD as per nephro, kandi requires permanent HD, npo pmn for likely permacath in am 2. Anasarca 2/2 Nephrotic syndrome 2/2 FSGS- nephro following, steroids (will need for 12 weeks and taper as per nephro), fluid restriction, UF as per nephro 3 Chest pain may have been 2/2 Afib in HD, Hx cabg 2017, now resolved pain and rate controlled Paroxysmal afib - cards followed and did not think afib caused pain, not concerned for cardiac cause, he was not on senior care AC at home due to anemia and is pending outpt c scope, held full AC due to bleeding from RIJ site and anemia, now with new RIJ thrombis on hep gtt with plan to transition to oral agent later this admission prior to discharge 4. Acute on Chronic Diastolic CHF- fluid management as per nephro 5. RIJ DVT- hep gtt ( line change in am), echo report reviewed and no thrombus team contacting IR for time of procedure AM to plan for hep gtt to be held. will be signed out to night team Further diagnoses and plan as noted by resident <Soraya Bergeron R - Last Filed: 08/09/18 14:47> Hospitalist Progress Note - Encounter Date of Encounter: 08/09/18 Time of Encounter: 07:12 - Subjective Interval History: Pt tolerated dialysis well yesterday. No complaints today. Spoke with nephrology who believe the patient will need termite treater dialysis and are scheduling permacath placement for tomorrow with continued dialysis. The patient will be made NPO at midnight and his anticoagulation will be stopped 3 hours prior to procedure. - Exam Vitals: Temp Pulse Resp BP Pulse Ox 98.1 F 66 20 138/77 96 08/09/18 04:44 08/09/18 04:44 08/09/18 04:44 08/09/18 04:44 08/09/18 04:44 Exam: Constitutional - alert and pleasant, in NAD. HEENT - PERRL. EOMI. No obvious edema of face or neck. Neck non-tender to palpat ion without LAD. Cardio - irregular rhythm, normal rate, no audible murmurs. Respiratory - Lungs without focal areas of consolidation, wheezes rhonchi or rales. Abdomen - soft, nontender to palpation without rebound, guarding or rigidity. Scar from previous hernia repair without complications. Edema of abdomen markedly improved post dialysis yesterday. Extremities - Stable edema of B/L UE with 2+ pitting edema. Stable edema of his B/L lower extremities. Limbs continue to decrease in size. Skin - no visible rashes or skin breakdown. Area of erythema on right upper arm proximal to the elbow. Not warm to touch or draining any fluid. Neuro - a&o x3, follow commands. Good strength and sensation in all extremities. - Assessment and Plan (1) Anasarca Current Visit: Yes Status: Acute Assessment and Plan: Due to volume overload and MAO on CKD, possibly prerenal due to CHF. Plan: Bumex held due to worsening kidney function Continue steroids Dialysis per nephro - cont prn ativan prior to tx Permacath placement on 08/10 for continued outpatient dialysis Nephrology following (2) Acute kidney injury superimposed on CKD Current Visit: No Status: Acute Assessment and Plan: Hx of CKD stage IV and FSGS - significant worsening for past week with 5lb wt gain Cr 06/22/18 1.90. Cr 3.50 now with BUN 68. Plan: Will monitor renal panel QD. Bumex held due to worsening kidney fxn Nephro following Renal US showed a renal cyst without hydronephrosis Dialysis (3) Nephrotic syndrome Current Visit: No Status: Chronic Assessment and Plan: Hx FSGS s/p cardiac cath in January 2018 Increased swelling of extremities Kidney panel shows Cre 4.01 with u protein of 876, increased from visit in june Plan: As above (4) Acute on chronic diastolic (congestive) heart failure Current Visit: Yes Status: Acute Assessment and Plan: Acute on Chronic Diastolic CHF echo with EF 40-45%, no evidence of thrombus No diuretics 2/2 MAO on CKD UF/HD as per nephro -cont asa, statin, BB (5) Chest pain Current Visit: Yes Status: Acute Assessment and Plan: Chest pain with dialysis x2 trials Both times with afib Likely secondary to afib from irritation with dialysis catheter Cardio consulted Echo unchanged from previous, pacer working, afib rate controlled - cardio has signed off Ativan prn prior to dialysis will also be initiated (6) Atrial fibrillation Current Visit: No Status: Chronic Assessment and Plan: On Dig - level 0.8 on 08/08 - if tolerates dialysis tomorrow return to normal dose and recheck level EKG shows afib with paced rhythm Plan: Digoxin Monitor levels and HR Cardio consulted - they state it continues to be rate controlled and have signed off as a cause of his chest pain (7) CAD (coronary artery disease) Current Visit: No Status: Chronic Assessment and Plan: Continue home ASA 325 mg, Coreg, and statin. (8) Emphysema lung Current Visit: No Status: Chronic Assessment and Plan: CXR improved from previous Continue home symbicort PRN nebs but not in acute COPD exacerbation. (9) Diabetes mellitus Current Visit: No Status: Chronic Assessment and Plan: Hx of DM without insulin use Plan: Continue home Glipizide 2.5 mg SSI if needed while in hospital (10) Jugular vein thrombosis, right Current Visit: Yes Status: Acute Assessment and Plan: Identified on RUE US for edema > LUE on 08/06 Discussed with IR findings and okay to leave line in and use, no OR intervention required AC initiated 08/06 after discussion with pt and his Plan: -cont hep gtt (will be held in am for procedure, then restarted after) -oral agent not started yet given may need line change prior to DC and would have to hold oral agent -will have to discuss with nephro recommended oral agent to transition to given his renal function, pt does not prefer warfarin as hard time maintaining therapeutic levels in past -monitor for bleeding, has had none thus far DVT Prophylaxis: Heparin ggt - Time Spent with Patient Total time spent is greater than 50% in coordination of care (as documented) at patient's floor/unit and/or counseling patient: Internal Medicine: Result - Labs CBC & Chem 7: 08/09/18 04:35 08/09/18 04:35 Labs: Short CBC 08/09/18 Range/Units 04:35 WBC 14.3 H (4.3-11.1) K/mcL Hgb 8.1 L (12.9-16.9) g/dL Hct 23.7 L (37.5-50.1) % Plt Count 175 (140-400) K/mcL BMP 08/09/18 04:35 Sodium 135 L Potassium 4.0 Chloride 102 Carbon Dioxide 24 BUN 68 H Creatinine 3.50 H Glucose 121 H Calcium 7.0 L Liver Function 08/09/18 Range/Units 04:35 Albumin 1.5 L (3.5-5.7) g/dL - ABG Interpretation ABG results: PT/INR, D-dimer PT 10.7 Seconds (9.4-12.1) 08/07/18 06:30 <Tiffani Dixon - Last Filed: 08/09/18 14:32> (5) Atrial fibrillation Qualifiers: Atrial fibrillation type: chronic Qualified Code(s): I48.2 - Chronic atrial fibrillation (7) Chest pain Qualifiers: Chest pain type: unspecified Qualified Code(s): R07.9 - Chest pain, unspecified (8) CAD (coronary artery disease) Qualifiers: Coronary Disease-Associated Artery/Lesion type: [place] artery [place] vs. transplanted heart: [place] heart Associated angina: without angina Qualified Code(s): I25.10 - Atherosclerotic heart disease of [place] coronary artery wi thout angina pectoris (9) Diabetes mellitus Qualifiers: Diabetes mellitus type: type 2 Diabetes mellitus termite treater insulin use: without senior care use Diabetes mellitus complication status: without complication Qualified Code(s): E11.9 - Type 2 diabetes mellitus without complications (10) Emphysema lung Qualifiers: Emphysema type: panlobular Qualified Code(s): J43.1 - Panlobular emphysema <RubioSoraya R - Last Filed: 08/09/18 14:47> (5) Chest pain Qualifiers: Chest pain type: unspecified Qualified Code(s): R07.9 - Chest pain, unspecified (6) Atrial fibrillation Qualifiers: Atrial fibrillation type: chronic Qualified Code(s): I48.2 - Chronic atrial fibrillation (7) CAD (coronary artery disease) Qualifiers: Coronary Disease-Associated Artery/Lesion type: [place] artery [place] vs. transplanted heart: [place] heart Associated angina: without angina Qualified Code(s): I25.10 - Atherosclerotic heart disease of [place] coronary artery without angina pectoris (8) Emphysema lung Qualifiers: Emphysema type: panlobular Qualified Code(s): J43.1 - Panlobular emphysema (9) Diabetes mellitus Qualifiers: Diabetes mellitus type: type 2 Diabetes mellitus senior care insulin use: witho ut termite treater use Diabetes mellitus complication status: without complication Qualified Code(s): E11.9 - Type 2 diabetes mellitus without complications
[2018-08-09] MEDS: Insulin LISPRO 300 UNITS/3 ML VIAL SQ SCH ×3 (07:50→16:37)
[2018-08-09] MEDS: predniSONE 20 MG TABLET PO SCH (07:50)
[2018-08-09] MEDS: *HR* Digoxin 0.125 MG TABLET PO SCH (07:50)
[2018-08-09] MEDS: Sennosides 8.6 MG TABLET PO SCH (07:50)
[2018-08-09] MEDS: Budesonide/Formoterol 160/4.5 1 PUFF INH IH SCH ×2 (10:18→22:11)
[2018-08-09] MEDS: Furosemide 40 MG TABLET PO SCH ×2 (11:51→16:36)
--- NOTE | 2018-08-09 13:26 | Nephrology Progress Note ---
Addendum entered and electronically signed by Jack Calvillo DO 08/09/18 21:43: I have personally performed a face to face evaluation on this patient. I have reviewed and agree with the care plan. History and Exam by me shows: He very likely has no chance of renal recovery. Rec planning for Permacath and outpt HD; will make NPO, consult the SW for dialysis chair, and Permacath tomorrow. I counseled him and his at length on the R/B/I/A and pros/cons of these options. Nephrotic syndrome on exam with significant anasarca: high quality trials have shown that dialysis patients who are also prescribed diuretics have lower chances of readmission and less CHF events. He has had several readmissions; so I recommend resuming his lasix. I suspect he has a low probability of renal recovery, and so in consider immunosuppresive Rx options for FSGS, it seams that continuing Pred and / or starting further immunosuppresion such as Cytoxin/Rituxan/MMF may not provide benefit but still expose him to their real/potential SEs. At this time the risks appear to outweigh the potential benefits, and I explained this to the pt. I recommend a slow taper off the steroids. Original Note: Date of Encounter: 08/09/18 Time of Encounter: 13:24 - Assessment and Plan (1) Acute kidney injury superimposed on CKD Current Visit: No Status: Acute HD completed yesterday without complication. Plan for HD tomorrow. Nonoliguric MAO secondary to renal biopsy-proven FSGS and associated with nephrotic syndrome with anasarca. His last HD was Wednesday. He has not tolerated dialysis treatments well with associated anxiety and palpitations. Patient will be nothing by mouth tonight at midnight for PermCath placement tomorrow morning. Would recommend holding heparin drip 3 hours prior to procedure in IR, spoke with IR regarding Heparin gtt. PO Lasix restarted to help with edema. convention services director consult placed for outpatient dialysis. Continue to follow a renal protective strategy as able including dosing renally cleared medications by creatinine clearance / GFR, and avoiding nephrotoxic agents as able. Strict I's and O's and daily weights are recommended as well. (2) FSGS (focal segmental glomerulosclerosis) with nephrosis Current Visit: No Status: Chronic Biopsy proven, appears idiopathic with negative malignancy workup Agree with steroids resumed. Had good response previously. (3) Anasarca Current Visit: Yes Status: Acute Secondary to the Nephrotic syndrome which is secondary to the FSGS. HD for UF and clearance. (4) Nephrotic syndrome Current Visit: No Status: Chronic I recomend a fluid restriction, Low Na diet, and I recommend statin and when able to have him on an KENDRA or ARB (the later two currently held d/t the MAO). (5) Panic attacks Current Visit: Yes Status: Acute Patient is having a hard time tolerating HD sessions. Has been given by mouth Ativan with last couple sessions and he has only completed approximately an hour and a half. Would suggest BuSpar for long-term management by primary team or a psychiatry evaluation. (6) Jugular vein thrombosis, right Current Visit: Yes Status: Acute Identified on RUE US for edema > LUE on 08/06. Discussed with IR findings and okay to leave line in and use, no OR intervention required Per primary. Subjective Principal diagnosis: MAO on CKD Interval history: Seen and examined doing well. Family at bedside. Denies nausea, vomiting, diarrhea. Denies chest pain or shortness of breath. No acute events overnight. HD completed yesterday with a full session no symptoms of anxiety noted. Objective - Vital Signs Vital signs: Vital Signs Temp Pulse Resp BP Pulse Ox 08/09/18 11:17 98.3 F 57 16 136/76 97 08/09/18 10:18 16 98 08/09/18 07:55 70 08/09/18 07:36 98.0 F 83 18 148/92 97 08/09/18 04:44 98.1 F 66 20 138/77 96 08/09/18 03:30 17 97 08/09/18 00:48 97.5 F L 74 18 121/89 96 08/08/18 21:55 18 96 08/08/18 19:59 97.9 F 69 16 109/68 96 08/08/18 17:59 110/81 08/08/18 16:32 97.5 F L 74 16 121/59 95 08/08/18 16:29 73 08/08/18 15:46 14 93 08/08/18 14:10 97.3 F L 71 14 104/72 93 08/08/18 13:40 97.5 F L 15 153/89 08/08/18 13:30 125/74 Intake and Output 08/08/18 08/09/18 08/09/18 23:59 07:59 15:59 Intake Total 600 / 600 302 / 302 480 / 480 Output Total 0 / 0 100 / 100 Balance 600 / 600 202 / 202 480 / 480 Intake: IV Fluids 252 / 252 Heparin 25,000 UNIT/500 ML D5W 252 / 252 25,000 unit In 500 ml @ 14 UNIT /KG/HR 22.064 mls/hr IVC . [id number] [facility] Rx#:[id number] Oral 600 / 600 50 / 50 480 / 480 Output: Urine 0 / 0 100 / 100 Other: Meal Breakfast Percent of Meal Consumed 100% Weight 78.6 kg Blood Glucose* 208 102 136 Patient Weight 08/09/18 23:59 Weight 78.6 kg - General Appearance General appearance: Present: well-developed, well-nourished EENT: Present: ATNC, hearing intact, vision intact Neck: Present: supple Respiratory: Present: clear, wheezing Cardiology: Present: edema (+3 pitting edema noted to bilateral upper extremities, +2 bilateral lower extremities.), normal S1, normal S2 Dialysis Vascular Access: Venous Catheter (Dressing clean dry and intact.) Gastrointestinal: Present: normoactive bowel sounds, no tenderness, no guarding Integumentary: Present: no rash, warm and dry Neurologic: Present: alert and oriented x3 Musculoskeletal: Present: no deformities, no erythema Psychiatric: Present: mood/affect appropriate, cooperative - Lab 08/09/18 04:35 08/09/18 04:35 Most recent lab results Calcium 7.0 mg/dL (8.6-10.3) L 08/09/18 04:35 Phosphorus 5.2 mg/dL (2.7-4.5) H 08/09/18 04:35 Magnesium 2.4 mg/dL (1.6-2.6) 08/07/18 06:30 Urine Creatinine 60 mg/dL 07/27/18 23:45 Urine Sodium 53.9 mEq/L 07/27/18 23:45 Urine Total Protein 876 mg/dL (1-14) H 07/27/18 23:45 Consult Discharge Plan - Plan [facility]errals: [facility] [Primary Care Provider] -
[2018-08-09] MEDS ORDERED: Acetaminophen 325 MG TABLET PO PRN ×2 (20:46→20:47)
[2018-08-10] MEDS ORDERED: Melatonin 3 MG TABLET PO ONE (02:11)
[2018-08-10 03:08] LABS: Hemoglobin 8.4 g/dL (12.9-16.9); Mean Corpuscular HGB Conc 33.6 g/dL (31.6-35.5); Mean Corpuscular Hemoglobin 31.7 pg (28.0-33.3); Mean Corpuscular Volume 94.3 fL (83.0-100.0); Mean Platelet Volume 10.3 fL (9.4-12.4); Platelet Count 188 K/mcL (140-400); Red Blood Count 2.65 M/mcL (4.19-5.50); Red Cell Distribution Width 13.5 % (11.5-14.5)
[2018-08-10 03:18] LABS: INR 0.9; Prothrombin Time 10.1 Seconds (9.4-12.1)
[2018-08-10 03:23] LABS: Albumin 1.6 g/dL (3.5-5.7); Calcium 7.3 mg/dL (8.6-10.3); Phosphorous 5.6 mg/dL (2.7-4.5); Potassium 4.1 mEq/L (3.5-5.1)
[2018-08-10] MEDS: Albuterol 2.5 MG/3 ML NEBULIZER IH SCH ×4 (05:20→22:01)
[2018-08-10] MEDS ORDERED: 0.9 % Sodium Chloride 250 ML IVC PRN (06:59)
[2018-08-10] MEDS ORDERED: 0.9 % Sodium Chloride 2,000 ML ONE (07:14)
[2018-08-10] MEDS: *HR* LORazepam 2 MG/ML VIAL IVP PRN ×2 (08:03→09:39)
--- NOTE | 2018-08-10 09:50 | Nephrology Progress Note ---
Addendum entered and electronically signed by Jack Calvillo DO 08/10/18 21:44: I have personally performed a face to face evaluation on this patient. I have reviewed and agree with the care plan. History and Exam by me shows: HD today for clearance and UF of his still significant anasarca. Plan for possible UF tomorrow as well. SW consulted to help with outpt HD chair. Original Note: Date of Encounter: 08/10/18 Time of Encounter: 09:48 - Assessment and Plan (1) Acute kidney injury superimposed on CKD Current Visit: No Status: Acute HD in progress for today. Nonoliguric MAO secondary to renal biopsy-proven FSGS and associated with nephrotic syndrome with anasarca. Permcath ordered for today, patient has been NPO. Would recommend holding heparin drip 3 hours prior to procedure in IR, spoke with IR regarding Heparin gtt. PO Lasix restarted to help with edema. volunteer services assistant consult placed for outpatient dialysis. Continue to follow a renal protective strategy as able including dosing renally cleared medications by creatinine clearance / GFR, and avoiding nephrotoxic agents as able. Strict I's and O's and daily weights are recommended as well. (2) FSGS (focal segmental glomerulosclerosis) with nephrosis Current Visit: No Status: Chronic Biopsy proven, appears idiopathic with negative malignancy workup Agree with steroids resumed. Had good response previously. (3) Anasarca Current Visit: Yes Status: Acute Secondary to the Nephrotic syndrome which is secondary to the FSGS. HD for UF and clearance. (4) Nephrotic syndrome Current Visit: No Status: Chronic Recommend a fluid restriction, Low Na diet. (5) Panic attacks Current Visit: Yes Status: Acute Patient is having a hard time tolerating HD sessions however he has does well with the last 2 sessions. Would suggest BuSpar for long-term management by primary team or a psychiatry evaluation. (6) Jugular vein thrombosis, right Current Visit: Yes Status: Acute Identified on RUE US for edema > LUE on 08/06. Discussed with IR findings and okay to leave line in and use, no OR intervention required. Continues to be on IV heparin, was stopped at 0830 this am for Permcath placement, will resume gtt after line placement. Subjective Principal diagnosis: MAO on CKD Interval history: Seen and examined in HD, tolerating well. Denies nausea, vomiting, diarrhea. Denies chest pain or shortness of breath. No acute events overnight. Objective - Vital Signs Vital signs: Vital Signs Temp Pulse Resp BP Pulse Ox 08/10/18 08:30 64 08/10/18 07:51 98.1 F 54 16 128/86 96 08/10/18 05:20 16 97 08/10/18 03:00 98 F 64 16 132/99 99 08/09/18 23:40 98.3 F 94 18 138/98 96 08/09/18 22:14 16 98 08/09/18 19:40 98.5 F 96 16 114/80 97 08/09/18 16:27 97.8 F 83 16 131/84 96 08/09/18 15:55 16 97 08/09/18 11:17 98.3 F 57 16 136/76 97 08/09/18 10:18 16 98 Intake and Output 08/09/18 08/10/18 08/10/18 23:59 07:59 15:59 Intake Total 420 / 420 60 / 60 Output Total 300 / 300 Balance 420 / 420 -300 / -300 60 / 60 Intake: Oral 420 / 420 60 / 60 Output: Urine 300 / 300 Other: Meal Dinner NPO Percent of Meal Consumed 90% 0% Weight 79.2 kg Blood Glucose* 163 84 Patient Weight 08/10/18 23:59 Weight 79.2 kg - General Appearance General appearance: Present: well-developed, well-nourished EENT: Present: ATNC, hearing intact, vision intact Neck: Present: supple Respiratory: Present: clear Cardiology: Present: edema (+3 pitting edema noted to bilat upper extremities, +2 noted to bilat lower extremities.), normal S1, normal S2 Dialysis Vascular Access: Venous Catheter (DRSG C/D/I) Gastrointestinal: Present: normoactive bowel sounds, no tenderness, no guarding Integumentary: Present: no rash, warm and dry Neurologic: Present: alert and oriented x3 Musculoskeletal: Present: no deformities, no erythema Psychiatric: Present: mood/affect appropriate, cooperative - Lab 08/10/18 02:45 08/10/18 02:45 Most recent lab results Calcium 7.3 mg/dL (8.6-10.3) L 08/10/18 02:45 Phosphorus 5.6 mg/dL (2.7-4.5) H 08/10/18 02:45 Magnesium 2.4 mg/dL (1.6-2.6) 08/07/18 06:30 Urine Creatinine 60 mg/dL 07/27/18 23:45 Urine Sodium 53.9 mEq/L 07/27/18 23:45 Urine Total Protein 876 mg/dL (1-14) H 07/27/18 23:45 Consult Discharge Plan - Plan [facility]errals: [facility] [Primary Care Provider] -
[2018-08-10] MEDS: Budesonide/Formoterol 160/4.5 1 PUFF INH IH SCH ×2 (10:06→22:01)
[2018-08-10] MEDS: Heparin 25,000 UNIT/500 ML D5W 25,000 UNIT/500 ML BAG IVC SCH ×2 (12:16→12:18)
[2018-08-10] MEDS: Insulin LISPRO 300 UNITS/3 ML VIAL SQ SCH ×3 (12:17→17:11)
[2018-08-10] MEDS: Furosemide 40 MG TABLET PO SCH ×2 (12:19→17:18)
[2018-08-10] MEDS: Sennosides 8.6 MG TABLET PO SCH (12:19)
[2018-08-10] MEDS: predniSONE 20 MG TABLET PO SCH (12:19)
[2018-08-10] MEDS ORDERED: Heparin 1,000 UNITS/500 mL 500 ML ONE (13:45)
[2018-08-10] MEDS ORDERED: 0.9 % Sodium Chloride 500 ML ONE (13:50)
[2018-08-10] MEDS ORDERED: *HR* Midazolam HCl 2 MG/2 ML VIAL IVP ONE (13:50)
[2018-08-10] MEDS ORDERED: CeFAZolin Premix DUPLEX 2,000 MG/50 ML BAG IVPB ONE (13:50)
[2018-08-10] MEDS ORDERED: *HR* Heparin 5,000 UNIT/ML VIAL ONE (14:12)
--- NOTE | 2018-08-10 14:18 | IR Procedure Note ---
Date of procedure: 08/10/18 Consent Obtained: Verbal consent, Written consent Timeout: Correct patient and procedure verified, Correct site verified, Time out performed, Skin prep completed Local anesthetic: Lidocaine 1% Indications: Renal failure Procedure Performed: Tunneled HD catheter placement Was there an optometrist assistant present: No Site/Technique: Tunneled HD catheter placed in VIR Results/Findings: Tunneled HD catheter in good position Estimated blood loss (cc): 2 Complications: None; Tolerated procedure well Post Procedure Treatment Plan: OK to use the HD catheter now Specimen: None
--- NOTE | 2018-08-10 20:05 | Internal Med Progress Note ---
Hospitalist Progress Note - Encounter Date of Encounter: 08/10/18 Time of Encounter: 18:30 - Subjective Interval History: Mr Dumont is currently admitted for acute on chronic renal failure. He is now on dialysis chronically. He remains moderate to high risk due to potential for worsening clinical status. Mr Dumont is feeling OK. He is tolerating dialysis. Had permacath today. No fever or chills. No CP or SOB. - Exam Vitals: Temp Pulse Resp BP Pulse Ox 98.7 F 75 18 109/72 95 08/10/18 19:01 08/10/18 19:01 08/10/18 19:01 08/10/18 19:01 08/10/18 19:01 Exam: Constitutional - alert and pleasant Comfortable in bed. HEENT - PERRL. EOMI. No obvious edema of face or neck. Cardio - irregular rhythm, normal rate, no audible murmurs. Not tachycardic. Respiratory - Lungs without wheeze or rales. Abdomen - soft, nontender to palpation. No mass. Extremities - Stable edema of B/L UE with 2+ pitting edema. Stable edema of his B/L lower extremities. Overall improving. New permacath noted. Skin - no visible rashes Neuro - a&o x3, follow commands. Good strength and sensation in all extremities. - Assessment and Plan (1) Atrial fibrillation Current Visit: No Status: Chronic Assessment and Plan: Rate controlled Paroxysmal Afib On Dig echo EF 45% and indeterminant diastolic dysfunction, device interrogation by cards he was not on detention AC at home due to anemia and is pending outpt cscope, held full AC due to bleeding from RIJ site and anemia now with new RIJ thrombis on hep gtt with plan to transition to oral agent later this admission prior to discharge -cards has signed off Plan: -Currently on IV heparin with plan to transition to oral. (2) CAD (coronary artery disease) Current Visit: No Status: Chronic Assessment and Plan: cont home meds as above (3) Anasarca Current Visit: Yes Status: Acute Assessment and Plan: Anasarca 2/2 Nephrotic syndrome 2/2 FSGS - Slowly improving on dialysis. Diuretic restarted. (4) Nephrotic syndrome Current Visit: No Status: Chronic Assessment and Plan: 2/2 FSGS plan as above (5) Emphysema lung Current Visit: No Status: Chronic Assessment and Plan: stable Continue home symbicort PRN nebs (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 Current Visit: No Status: Chronic Assessment and Plan: as above Now on chronic dialysis. (7) Acute kidney injury superimposed on CKD Current Visit: No Status: Acute Assessment and Plan: Hx of CKD stage IV and FSGS Cr 06/22/18 1.90. Cr 4.62 now with BUN 124 this admit Renal US showed a renal cyst without hydronephrosis Plan: Now with chronic dialysis. Permacath placed today. (8) Diabetes mellitus Current Visit: No Status: Chronic Assessment and Plan: Hx of DM without insulin use hold home Glipizide as per nephro recs Plan: SSI prn (9) Chest pain Current Visit: Yes Status: Acute Assessment and Plan: Chest Pain is atypical and present only during HD when pt is feeling incredibly anxious While he is in Afib during these episodes it is rate controlled He has done well with Ativan prior to HD Cards evaluated and does not feel he requires further work up No further issues. Plan PRN meds for dialysis. (10) Acute on chronic diastolic (congestive) heart failure Current Visit: Yes Status: Acute Assessment and Plan: Acute on Chronic Diastolic CHF echo as above No diuretics 2/2 MAO on CKD UF/HD as per nephro -cont asa, statin, BB (11) Jugular vein thrombosis, right Current Visit: Yes Status: Acute Assessment and Plan: Identified on RUE US for edema > LUE on 08/06 Discussed with IR findings and okay to leave line in and use, no OR intervention required AC initiated 08/06 after discussion with pt and his Plan: -cont hep gtt -will have to discuss with nephro recommended oral agent to transition to given his renal function, pt does not prefer warfarin as hard time maintaining therapeutic levels in past -monitor for bleeding, has had none thus far Anticipate starting oral med tomorrow. - Time Spent with Patient Total time spent is greater than 50% in coordination of care (as documented) at patient's floor/unit and/or counseling patient: Internal Medicine: Result - Labs CBC & Chem 7: 08/10/18 02:45 08/10/18 02:45 Labs: Short CBC 08/10/18 Range/Units 02:45 WBC 16.6 H (4.3-11.1) K/mcL Hgb 8.4 L (12.9-16.9) g/dL Hct 25.0 L (37.5-50.1) % Plt Count 188 (140-400) K/mcL BMP 08/10/18 02:45 Sodium 135 L Potassium 4.1 Chloride 102 Carbon Dioxide 24 BUN 78 H Creatinine 3.98 H Glucose 107 H Calcium 7.3 L Liver Function 08/10/18 Range/Units 02:45 Albumin 1.6 L (3.5-5.7) g/dL - ABG Interpretation ABG results: PT/INR, D-dimer PT 10.1 Seconds (9.4-12.1) 08/10/18 02:45 - Impressions Impressions Guidance Ultrasound 08/10/18 00:00 IMPRESSION: Ultrasound and fluoroscopic guided placement of a tunneled right IJ hemodialysis catheter. No immediate complications. The catheter is ready for use. D/ / Issac Bunch MD / Issac Bunch MD Interpreting Provider: Issac Bunch MD Insertion Tunneled Catheter 08/10/18 00:00 IMPRESSION: Ultrasound and fluoroscopic guided placement of a tunneled right IJ hemodialysis catheter. No immediate complications. The catheter is ready for use. D/ / Issac Bunch MD / Issac Bunch MD Interpreting Provider: Issac Bunch MD Consult Discharge Plan - Plan [facility]errals: [facility] [Primary Care Provider] - (1) Atrial fibrillation Qualifiers: Atrial fibrillation type: chronic Qualified Code(s): I48.2 - Chronic atrial fibrillation (2) CAD (coronary artery disease) Qualifiers: Coronary Disease-Associated Artery/Lesion type: [place] artery [place] vs. transplanted heart: [place] heart Associated angina: without angina Qualified Code(s): I25.10 - Atherosclerotic heart disease of [place] coronary artery without angina pectoris (5) Emphysema lung Qualifiers: Emphysema type: panlobular Qualified Code(s): J43.1 - Panlobular emphysema (8) Diabetes mellitus Qualifiers: Diabetes mellitus type: type 2 Diabetes mellitus long term care social worker insulin use: without detention use Diabetes mellitus complication status: without complication Qualified Code(s): E11.9 - Type 2 diabetes mellitus without complications (9) Chest pain Qualifiers: Chest pain type: unspecified Qualified Code(s): R07.9 - Chest pain, unspecified
[2018-08-10] MEDS: Melatonin 3 MG TABLET PO PRN (21:52)
[2018-08-11] MEDS: Heparin 25,000 UNIT/500 ML D5W 25,000 UNIT/500 ML BAG IVC SCH (00:57)
[2018-08-11] MEDS: Albuterol 2.5 MG/3 ML NEBULIZER IH SCH ×4 (03:31→21:48)
[2018-08-11 05:34] LABS: Hemoglobin 8.7 g/dL (12.9-16.9); Mean Corpuscular HGB Conc 33.5 g/dL (31.6-35.5); Mean Corpuscular Hemoglobin 32.3 pg (28.0-33.3); Mean Corpuscular Volume 96.7 fL (83.0-100.0); Mean Platelet Volume 10.4 fL (9.4-12.4); Platelet Count 149 K/mcL (140-400); Red Blood Count 2.69 M/mcL (4.19-5.50); Red Cell Distribution Width 13.5 % (11.5-14.5)
[2018-08-11 05:47] LABS: Albumin 1.5 g/dL (3.5-5.7); Calcium 7.1 mg/dL (8.6-10.3); Phosphorous 4.7 mg/dL (2.7-4.5); Potassium 4.2 mEq/L (3.5-5.1)
--- NOTE | 2018-08-11 07:41 | Internal Med Progress Note ---
<Soraya Bergeron - Last Filed: 08/11/18 13:41> Hospitalist Progress Note - Encounter Date of Encounter: 08/11/18 Time of Encounter: 07:40 - Subjective Interval History: Pt with no complaints this morning. Permacath in place without leakage around the site. Scheduled for HUF this morning for additional fluid removal. Pt will be ready for DC once outpatient dialysis has been arranged. He will need anticoagulation after discharge due to the right jugular vein thrombus. Spoke with Dr. Calvillo who is agreeable with the patient taking Eliquis as an outpatient. - Exam Vitals: Temp Pulse Resp BP Pulse Ox 98.3 F 77 14 129/89 96 08/11/18 07:36 08/11/18 07:36 08/11/18 07:36 08/11/18 07:36 08/11/18 07:36 Exam: Constitutional - alert and pleasant Comfortable in bed. HEENT - PERRL. EOMI. No obvious edema of face or neck. Cardio - irregular rhythm, normal rate, no audible murmurs. Not tachycardic. Respiratory - Lungs without wheeze or rales. Abdomen - soft, nontender to palpation. No mass. Extremities - Markedly decreased edema of B/L UE, 1+ pitting edema. Decreased edema of his B/L lower extremities. Overall improving. New permacath noted. Skin - no visible rashes Neuro - a&o x3, follow commands. Good strength and sensation in all extremities. - Assessment and Plan (1) Anasarca Current Visit: Yes Status: Acute Assessment and Plan: Due to volume overload and MAO on CKD, possibly prerenal due to CHF. Plan: Bumex held due to worsening kidney function Continue steroids Dialysis per nephro - cont prn ativan prior to tx Permacath placement on 08/10 for continued outpatient dialysis Nephrology following Edema improving (2) Acute kidney injury superimposed on CKD Current Visit: No Status: Acute Assessment and Plan: Hx of CKD stage IV and FSGS - significant worsening for past week with 5lb wt gain Cr 06/22/18 1.90. Cr 3.09 now with BUN 42. Plan: Will monitor renal panel QD. Bumex held due to worsening kidney fxn Nephro following Renal US showed a renal cyst without hydronephrosis Dialysis (3) Nephrotic syndrome Current Visit: No Status: Chronic Assessment and Plan: Hx FSGS s/p cardiac cath in January 2018 Increased swelling of extremities Kidney panel shows Cre 4.01 with u protein of 876, increased from visit in june Plan: As above (4) Acute on chronic diastolic (congestive) heart failure Current Visit: Yes Status: Acute Assessment and Plan: Acute on Chronic Diastolic CHF echo with EF 40-45%, no evidence of thrombus No diuretics 2/2 MAO on CKD UF/HD as per nephro -cont asa, statin, BB (5) Chest pain Current Visit: Yes Status: Acute Assessment and Plan: Chest pain with dialysis x2 trials Both times with afib Likely secondary to afib from irritation with dialysis catheter Cardio consulted Echo unchanged from previous, pacer working, afib rate controlled - cardio has signed off Ativan prn prior to dialysis will also be initiated (6) Atrial fibrillation Current Visit: No Status: Chronic Assessment and Plan: On Dig - level 0.8 on 08/08 - if tolerates dialysis tomorrow return to normal dose and recheck level EKG shows afib with paced rhythm Plan: Digoxin Monitor levels and HR Cardio consulted - they state it continues to be rate controlled and have signed off as a cause of his chest pain (7) CAD (coronary artery disease) Current Visit: No Status: Chronic Assessment and Plan: Continue home ASA 325 mg, Coreg, and statin. (8) Emphysema lung Current Visit: No Status: Chronic Assessment and Plan: CXR improved from previous Continue home symbicort PRN nebs but not in acute COPD exacerbation. (9) Diabetes mellitus Current Visit: No Status: Chronic Assessment and Plan: Hx of DM without insulin use Plan: Continue home Glipizide 2.5 mg SSI if needed while in hospital (10) Jugular vein thrombosis, right Current Visit: Yes Status: Acute Assessment and Plan: Identified on RUE US for edema > LUE on 08/06 Discussed with IR findings and okay to leave line in and use, no OR intervention required AC initiated 08/06 after discussion with pt and his Plan: -cont hep gtt (will be held in am for procedure, then restarted after) -oral agent not started yet given may need line change prior to DC and would have to hold oral agent -nephro is agreeable with the patient being on Eliquis as an outpatient -monitor for bleeding, has had none thus far DVT Prophylaxis: Heparin ggt - Time Spent with Patient Total time spent is greater than 50% in coordination of care (as documented) at patient's floor/unit and/or counseling patient: Internal Medicine: Result - Labs CBC & Chem 7: 08/11/18 05:07 08/11/18 05:07 Labs: Short CBC 08/11/18 Range/Units 05:07 WBC 13.6 H (4.3-11.1) K/mcL Hgb 8.7 L (12.9-16.9) g/dL Hct 26.0 L (37.5-50.1) % Plt Count 149 (140-400) K/mcL BMP 08/11/18 05:07 Sodium 134 L Potassium 4.2 Chloride 102 Carbon Dioxide 29 BUN 42 H Creatinine 3.09 H Glucose 80 Calcium 7.1 L Liver Function 08/11/18 Range/Units 05:07 Albumin 1.5 L (3.5-5.7) g/dL - ABG Interpretation ABG results: PT/INR, D-dimer PT 10.1 Seconds (9.4-12.1) 08/10/18 02:45 - Impressions Impressions Guidance Ultrasound 08/10/18 00:00 IMPRESSION: Ultrasound and fluoroscopic guided placement of a tunneled right IJ hemodialysis catheter. No immediate complications. The catheter is ready for use. D/ / Issac Bunch MD / Issac Bunch MD Interpreting Provider: Issac Bunch MD Insertion Tunneled Catheter 08/10/18 00:00 IMPRESSION: Ultrasound and fluoroscopic guided placement of a tunneled right IJ hemodialysis catheter. No immediate complications. The catheter is ready for use. D/ / Issac Bunch MD / Issac Bunch MD Interpreting Provider: Issac Bunch MD Consult Discharge Plan - Plan Referrals: [facility] [Primary Care Provider] - <Joel Murrieta - Last Filed: 08/11/18 19:01> Hospitalist Progress Note - Encounter Date of Encounter: 08/11/18 - Exam Vitals: Temp Pulse Resp BP Pulse Ox 98.4 F 85 18 108/69 96 08/11/18 17:00 08/11/18 17:00 08/11/18 17:00 08/11/18 17:00 08/11/18 17:00 - Assessment and Plan (1) Atrial fibrillation Current Visit: No Status: Chronic (2) CAD (coronary artery disease) Current Visit: No Status: Chronic (3) Anasarca Current Visit: Yes Status: Acute (4) Nephrotic syndrome Current Visit: No Status: Chronic (5) Emphysema lung Current Visit: No Status: Chronic (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 Current Visit: No Status: Chronic (7) Acute kidney injury superimposed on CKD Current Visit: No Status: Acute (8) Diabetes mellitus Current Visit: No Status: Chronic (9) Chest pain Current Visit: Yes Status: Acute (10) Acute on chronic diastolic (congestive) heart failure Current Visit: Yes Status: Chronic (11) Jugular vein thrombosis, right Current Visit: Yes Status: Acute - Time Spent with Patient Total time spent is greater than 50% in coordination of care (as documented) at patient's floor/unit and/or counseling patient: Internal Medicine: Result - Labs CBC & Chem 7: 08/11/18 05:07 08/11/18 05:07 Labs: Short CBC 08/11/18 Range/Units 05:07 WBC 13.6 H (4.3-11.1) K/mcL Hgb 8.7 L (12.9-16.9) g/dL Hct 26.0 L (37.5-50.1) % Plt Count 149 (140-400) K/mcL BMP 08/11/18 05:07 Sodium 134 L Potassium 4.2 Chloride 102 Carbon Dioxide 29 BUN 42 H Creatinine 3.09 H Glucose 80 Calcium 7.1 L Liver Function 08/11/18 Range/Units 05:07 Albumin 1.5 L (3.5-5.7) g/dL - ABG Interpretation ABG results: PT/INR, D-dimer PT 10.1 Seconds (9.4-12.1) 08/10/18 02:45 - Attending Attestation I examined this patient and my medical decision-making was reviewed with the Res carolinat Physician on 08/11/18. I agree with the documented findings, disposition and treatment plan as described except to the extent set forth below. Mr Dumont is currently admitted for renal failure due to FSGS. He remains moderate to high risk due to potential for worsening clinical status. Mr Dumont is getting UF today. Overall swelling is improving. No fever or chills. No other acute issues. Exam Alert Comfortable Mucus membranes dry Heart irreg No wheeze Less edema I/P 1. Anasarca - improving with dialysis 2. Renal failure - awaiting dialysis chair time 3. IJ thrombus - Eliquis started Further diagnoses and plan as above. <Soraya Bergeron R - Last Filed: 08/11/18 13:41> (5) Chest pain Qualifiers: Chest pain type: unspecified Qualified Code(s): R07.9 - Chest pain, unspecified (6) Atrial fibrillation Qualifiers: Atrial fibrillation type: chronic Qualified Code(s): I48.2 - Chronic atrial fibrillation (7) CAD (coronary artery disease) Qualifiers: Coronary Disease-Associated Artery/Lesion type: [place] artery [place] vs. transplanted heart: [place] heart Associated angina: without angina Qualified Code(s): I25.10 - Atherosclerotic heart disease of [place] coronary artery without angina pectoris (8) Emphysema lung Qualifiers: Emphysema type: panlobular Qualified Code(s): J43.1 - Panlobular emphysema (9) Diabetes mellitus Qualifiers: Diabetes mellitus type: type 2 Diabetes mellitus prison insulin use: without prison use Diabetes mellitus complication status: without complication Qualified Code(s): E11.9 - Type 2 diabetes mellitus without complications <Joel Murrieta A - Last Filed: 08/11/18 19:01> (1) Atrial fibrillation Qualifiers: Atrial fibrillation type: chronic Qualified Code(s): I48.2 - Chronic atrial fibrillation (2) CAD (coronary artery disease) Qualifiers: Coronary Disease-Associated Artery/Lesion type: [place] artery [place] vs. transplanted heart: [place] heart Associated angina: without angina Qualified Code(s): I25.10 - Atherosclerotic heart disease of [place] coronary artery without angina pectoris (5) Emphysema lung Qualifiers: Emphysema type: panlobular Qualified Code(s): J43.1 - Panlobular emphysema (8) Diabetes mellitus Qualifiers: Diabetes mellitus type: type 2 Diabetes mellitus filler leaf cutter long insulin use: without filler leaf cutter long use Diabetes mellitus complication status: without complication Qualified Code(s): E11.9 - Type 2 diabetes mellitus without complications (9) Chest pain Qualifiers: Chest pain type: unspecified Qualified Code(s): R07.9 - Chest pain, unspecified
[2018-08-11] MEDS ORDERED: 0.9 % Sodium Chloride 250 ML IVC PRN (07:59)
[2018-08-11] MEDS: Insulin LISPRO 300 UNITS/3 ML VIAL SQ SCH ×3 (08:13→17:16)
[2018-08-11] MEDS: Sennosides 8.6 MG TABLET PO SCH (08:15)
[2018-08-11] MEDS: *HR* Digoxin 0.125 MG TABLET PO SCH (08:15)
[2018-08-11] MEDS: predniSONE 20 MG TABLET PO SCH (08:15)
[2018-08-11] MEDS: Furosemide 40 MG TABLET PO SCH ×2 (08:15→17:20)
[2018-08-11] MEDS: *HR* LORazepam 2 MG/ML VIAL IVP PRN ×2 (09:11→10:54)
[2018-08-11] MEDS: Budesonide/Formoterol 160/4.5 1 PUFF INH IH SCH ×2 (09:36→21:48)
--- NOTE | 2018-08-11 09:45 | Nephrology Progress Note ---
<Alaina Liang - Last Filed: 08/11/18 09:43> Date of Encounter: 08/11/18 Time of Encounter: 09:43 - Assessment and Plan (1) Acute kidney injury superimposed on CKD Current Visit: No Status: Acute UF ordered for today. Nonoliguric MAO secondary to renal biopsy-proven FSGS and associated with nephrotic syndrome with anasarca. Permcath placed 08/10/18. PO Lasix restarted to help with edema. library services assistant consult placed for outpatient dialysis. Continue to follow a renal protective strategy as able including dosing renally cleared medications by creatinine clearance / GFR, and avoiding nephrotoxic agents as able. Strict I's and O's and daily weights are recommended as well. (2) FSGS (focal segmental glomerulosclerosis) with nephrosis Current Visit: No Status: Chronic Biopsy proven, appears idiopathic with negative malignancy workup Agree with steroids resumed. Had good response previously. (3) Anasarca Current Visit: Yes Status: Acute Secondary to the Nephrotic syndrome which is secondary to the FSGS. HD for UF and clearance. (4) Nephrotic syndrome Current Visit: No Status: Chronic Recommend a fluid restriction, Low Na diet. (5) Jugular vein thrombosis, right Current Visit: Yes Status: Acute Identified on RUE US for edema > LUE on 08/06. Discussed with IR findings and okay to leave line in and use, no OR intervention required. Continues to be on IV heparin, was stopped at 0830 this am for Permcath placement, will resume gtt after line placement. (6) Panic attacks Current Visit: Yes Status: Acute Patient is having a hard time tolerating HD sessions however he has does well with the last 2 sessions. Would suggest BuSpar for long-term management by primary team or a psychiatry evaluation. Subjective Principal diagnosis: MAO on CKD Interval history: Seen and examined doing well. Explained the difference between HD and UF, he is agreeable to UF today to help to remove additional fluid. Denies nausea, vomiting, diarrhea. Denies chest pain or shortness of breath. No acute events overnight. Objective - Vital Signs Vital signs: Vital Signs Temp Pulse Resp BP Pulse Ox 08/11/18 08:20 98.3 F 77 14 129/89 96 08/11/18 07:36 98.3 F 77 14 129/89 96 08/11/18 04:20 98 F 83 17 104/59 97 08/11/18 03:31 16 96 08/11/18 00:50 98.6 F 70 14 119/81 95 08/10/18 22:01 16 96 08/10/18 19:01 98.7 F 75 18 109/72 95 08/10/18 16:38 98.3 F 85 19 127/76 94 08/10/18 15:31 21 96 08/10/18 14:13 72 21 156/89 96 08/10/18 14:09 104 19 147/95 96 08/10/18 14:05 91 21 154/112 98 08/10/18 13:56 75 17 136/104 95 08/10/18 13:52 73 22 152/103 08/10/18 11:59 97.9 F 85 18 126/93 08/10/18 11:50 96.4 F L 18 165/88 08/10/18 11:30 125/86 08/10/18 11:15 130/86 08/10/18 11:00 157/103 08/10/18 10:45 130/91 08/10/18 10:30 125/74 08/10/18 10:15 135/85 08/10/18 10:00 134/65 08/10/18 09:45 120/84 Intake and Output 08/10/18 08/11/18 08/11/18 23:59 07:59 15:59 Intake Total 120 / 120 825 / 825 0 / 0 Output Total 100 / 100 50 / 50 Balance 825 / 825 -50 / -50 Intake: IV Fluids 575 / 575 Heparin 25,000 UNIT/500 ML D5W 575 / 575 25,000 unit In 500 ml @ 14 UNIT /KG/HR 22.064 mls/hr IVC . [id number] [facility] Rx#:[id number] Oral 120 / 120 250 / 250 0 / 0 Output: Urine 100 / 100 50 / 50 Other: Meal Dinner Percent of Meal Consumed 85% Blood Glucose* 85 66 66 - General Appearance General appearance: Present: well-developed, well-nourished EENT: Present: ATNC, hearing intact, vision intact Neck: Present: supple Respiratory: Present: clear Cardiology: Present: edema (+1 pitting edema noted to bilat upper/lower extremities.), normal S1, normal S2 Dialysis Vascular Access: Venous Catheter (Permcath, DRSG c/d/I) Gastrointestinal: Present: normoactive bowel sounds, no tenderness, no guarding Integumentary: Present: no rash, warm and dry Neurologic: Present: alert and oriented x3 Musculoskeletal: Present: no deformities, no erythema Psychiatric: Present: mood/affect appropriate, cooperative - Lab 08/11/18 05:07 08/11/18 05:07 Most recent lab results Calcium 7.1 mg/dL (8.6-10.3) L 08/11/18 05:07 Phosphorus 4.7 mg/dL (2.7-4.5) H 08/11/18 05:07 Magnesium 2.4 mg/dL (1.6-2.6) 08/07/18 06:30 Urine Creatinine 60 mg/dL 07/27/18 23:45 Urine Sodium 53.9 mEq/L 07/27/18 23:45 Urine Total Protein 876 mg/dL (1-14) H 07/27/18 23:45 Consult Discharge Plan - Plan [facility]errals: [facility] [Primary Care Provider[facility] - <Jack Calvillo - Last Filed: 08/11/18 21:47> Date of Encounter: 08/11/18 - Assessment and Plan (1) Anasarca Current Visit: Yes Status: Acute I have personally performed a face to face evaluation on this patient. I have reviewed and agree with the care plan. History and Exam by me shows: Rec UF today for further UF of his anasarca. Already has the Permacath in place. Should start PhosLo. He has Nephrotic syndrome and is prothrombotic, and he developed a DVT near his temporary HD catheter last week, which was assessed by IR. He should be placed on either coumadin or Eliquis now that he has his Permacath, and the pt is wanting the later. See my comments regarding I/S in prior progress notes. (2) Nephrotic syndrome Current Visit: No Status: Chronic (3) FSGS (focal segmental glomerulosclerosis) with nephrosis Current Visit: No Status: Chronic (4) Acute kidney injury superimposed on CKD Current Visit: No Status: Acute (5) Jugular vein thrombosis, right Current Visit: Yes Status: Acute (6) Panic attacks Current Visit: Yes Status: Acute Objective - Vital Signs Vital signs: Vital Signs Temp Pulse Resp BP Pulse Ox 08/11/18 20:17 97.6 F 84 17 108/67 97 08/11/18 17:00 98.4 F 85 18 108/69 96 08/11/18 15:11 18 99 08/11/18 12:48 96.8 F L 18 126/78 08/11/18 12:30 95/44 08/11/18 12:15 111/49 08/11/18 12:00 148/79 08/11/18 11:45 134/44 08/11/18 11:30 117/93 08/11/18 11:15 129/68 08/11/18 11:00 97 F L 77 16 110/73 96 08/11/18 10:45 122/85 08/11/18 10:30 132/57 08/11/18 10:15 122/97 08/11/18 10:00 142/76 08/11/18 09:45 122/78 08/11/18 09:30 136/96 08/11/18 09:15 97 F L 16 128/63 08/11/18 08:20 98.3 F 77 14 129/89 96 08/11/18 07:36 98.3 F 77 14 129/89 96 08/11/18 04:20 98 F 83 17 104/59 97 08/11/18 03:31 16 96 08/11/18 00:50 98.6 F 70 14 119/81 95 08/10/18 22:01 16 96 Intake and Output 08/11/18 08/11/18 08/11/18 07:59 15:59 23:59 Intake Total 825 / 825 600 / 600 600 / 600 Output Total 3400 / 3400 50 / 50 Balance 825 / 825 -2800 / -2800 550 / 550 Intake: IV Fluids 575 / 575 Heparin 25,000 UNIT/500 ML D5W 575 / 575 25,000 unit In 500 ml @ 14 UNIT /KG/HR 22.064 mls/hr IVC . [id number] [facility] Rx#:[id number] Oral 250 / 250 0 / 0 600 / 600 Intake, Rinseback and Flushes 600 / 600 Output: Urine 50 / 50 50 / 50 Total Dialysis (HD) Output 3350 / 3350 Other: Meal Dinner Percent of Meal Consumed 70% Stool Size Moderate Stool Consistency soft Stool Characteristics Normal for Patient Stool Color Brown Blood Glucose* 66 93 214 Hemodialysis Net Fluid Removed 2750 (mL) - Lab 08/11/18 05:07 08/11/18 05:07 Most recent lab results Calcium 7.1 mg/dL (8.6-10.3) L 08/11/18 05:07 Phosphorus 4.7 mg/dL (2.7-4.5) H 08/11/18 05:07 Magnesium 2.4 mg/dL (1.6-2.6) 08/07/18 06:30 Urine Creatinine 60 mg/dL 07/27/18 23:45 Urine Sodium 53.9 mEq/L 07/27/18 23:45 Urine Total Protein 876 mg/dL (1-14) H 07/27/18 23:45
[2018-08-11] MEDS ORDERED: Heparin 25,000 UNIT/250 ML D5W 25,000 UNIT/250 ML IV.SOLN IVC SCH (10:30)
[2018-08-11] MEDS: Calcium Acetate 667 MG CAPSULE PO SCH (17:20)
[2018-08-11] MEDS: Apixaban 5 MG TABLET PO SCH (20:11)
[2018-08-12] MEDS: Albuterol 2.5 MG/3 ML NEBULIZER IH SCH ×4 (04:56→22:33)
[2018-08-12 05:53] LABS: Hematocrit 25.3 % (37.5-50.1); Hemoglobin 8.7 g/dL (12.9-16.9); Mean Corpuscular HGB Conc 34.4 g/dL (31.6-35.5); Mean Corpuscular Hemoglobin 32.3 pg (28.0-33.3); Mean Corpuscular Volume 94.1 fL (83.0-100.0); Mean Platelet Volume 10.5 fL (9.4-12.4); Platelet Count 155 K/mcL (140-400); Red Blood Count 2.69 M/mcL (4.19-5.50); Red Cell Distribution Width 13.5 % (11.5-14.5)
[2018-08-12 06:15] LABS: Albumin 1.6 g/dL (3.5-5.7); Calcium 7.1 mg/dL (8.6-10.3); Phosphorous 5.6 mg/dL (2.7-4.5); Potassium 4.4 mEq/L (3.5-5.1)
--- NOTE | 2018-08-12 07:45 | Discharge Summary ---
- NOTES TO OUTPATIENT PROVIDER Notes to Outpatient Provider: Pt will need dialysis as an outpatient, current schedule is MWF. He will also need to continue steroid therapy and nephrology follow up once discharged. Pt will also need to continue Eliquis for his right jugular vein thrombus. Orders not resulted at time of discharge: Pending orders 08/13/18 04:00 Complete Blood Count w/o Diff [HEME] AM 0400 Renal Function Panel AM 0400 08/14/18 04:00 Complete Blood Count w/o Diff [HEME] AM 0400 Renal Function Panel AM 0400 08/15/18 04:00 Complete Blood Count w/o Diff [HEME] AM 0400 Renal Function Panel AM 0400 Date of Encounter: 08/15/18 Time of Encounter: 07:45 - Discharge Diagnosis (1) ESRD (end stage renal disease) on dialysis Priority: Primary Status: Acute (2) Anasarca Priority: Secondary Status: Acute (3) Nephrotic syndrome Priority: Secondary Status: Chronic (4) Acute on chronic diastolic (congestive) heart failure Priority: Secondary Status: Chronic (5) Chest pain Priority: Secondary Status: Acute Qualifiers: Chest pain type: unspecified Qualified Code(s): R07.9 - Chest pain, unspecified (6) Atrial fibrillation Priority: Secondary Status: Chronic Qualifiers: Atrial fibrillation type: chronic Qualified Code(s): I48.2 - Chronic atrial fibrillation (7) CAD (coronary artery disease) Priority: Secondary Status: Chronic Qualifiers: Coronary Disease-Associated Artery/Lesion type: [place] artery [place] vs. transplanted heart: [place] heart Associated angina: without angina Qualified Code(s): I25.10 - Atherosclerotic heart disease of [place] coronary artery without angina pectoris (8) Emphysema lung Priority: Secondary Status: Chronic Qualifiers: Emphysema type: panlobular Qualified Code(s): J43.1 - Panlobular emphysema (9) Diabetes mellitus Priority: Secondary Status: Chronic Qualifiers: Diabetes mellitus type: type 2 Diabetes mellitus manager long term care insulin use: without alf use Diabetes mellitus complication status: without complication Qualified Code(s): E11.9 - Type 2 diabetes mellitus without complications (10) Jugular vein thrombosis, right Priority: Secondary Status: Acute Hospital course: Mr. Dumont is a 73 year old male with PMHx of COPD, CHF, and FSGS nephrotic syndrome who presented to the ED with a 5lb weight gain and increased LE edema over 5 days. He had had nephrotic flares similar to this in the past which responded well to bumex and steroids. He was initially diuresed with IV bumex which helped with his edema but worsened his kidney function. The bumex was stopped but his kidneys did not rebound with the steroids and gentle hydration. The decision was made to start temporary dialysis at that time. Temporary dialysis catheter was placed on 08/01 without complications. The first several trials of dialysis were ended prematurely as the patient was experiencing chest pain and afib with RVR. Cardiology was consulted at that time and determined the chest pain was not likely cardiac in nature and more likely panic attacks. The patient was started on PO Ativan prior to and during his treatments which helped him tolerate dialysis. On 08/06 it was noted the patient had increased right UE edema compared to the left and doppler was obtained, showing a right jugular vein partially occlusive thrombus. The patient was started on Lovenox for anticoagulation, which was eventually switched to PO Eliquis on 08/12. The patient received a permanent dialysis catheter on 08/10 as his kidneys continued to be unresponsive to medical management, and arrangement for outpatient dialysis at the NH began at this time. The patient continues to have some anasarca but has vastly improved since admission and is returning to baseline. He will be DC'd on Eliquis for the right JV thrombus and continue dialysis as an outpatient. Discharge discussed with: patient, family, social work, case management - Time Spent with Patient Total time spent providing and/or coordinating discharge services: - Discharge Medications Prescriptions: New Apixaban [Eliquis] 2.5 mg PO BID 30 Days #60 tablet Atorvastatin [Lipitor] 20 mg PO HS #30 tablet Calcium Acetate [Phos-LO] 667 mg PO TIDWM 30 Days #90 capsule Furosemide [Lasix] 40 mg PO BIDDIURETIC 30 Days #60 tablet predniSONE [PredniSONE] 60 mg PO DAILY 30 Days #90 tablet LORazepam [Ativan] 0.5 mg PO Q4HR PRN 30 Days #24 tablet PRN Reason: Anxiety Continue metOLazone [Zaroxolyn] 5 mg PO DAILY Ferrous Sulfate [Iron] 325 mg PO DAILY Docusate [Colace] 200 mg PO DAILY Colchicine [Colcrys] 0.6 mg PO DAILY PRN PRN Reason: GOUT FLARE Carvedilol [Coreg] 25 mg PO BID Allopurinol [Zyloprim 100 MG] 100 mg PO DAILY Bumetanide [Bumex] 1 mg PO TID Albuterol Neb [Proventil Neb] 2.5 mg IH Q6HR PRN PRN Reason: Shortness Of Breath Digoxin [Lanoxin] 0.125 mg PO QOD glipiZIDE [Glucotrol] 2.5 mg PO DAILY Spironolactone [Aldactone] 50 mg PO DAILY Budesonide/Formoterol 160/4.5 [Symbicort 160/4.5] 1 puff IH BIDR Albuterol Sulfate [Proair Hfa] 2 puff IN Q6H PRN PRN Reason: Shortness Of Breath Aspirin 162 mg PO DAILY Ascorbic Acid [Vitamin C] 500 mg PO DAILY Psyllium Husk/Aspartame [Metamucil Powder] 10 gm PO DAILY PRN PRN Reason: Constipation Discontinued Pravastatin Sodium [Pravachol] 80 mg PO HS Doxycycline 100 mg PO BID Home Medications: Albuterol Neb [Proventil Neb] 2.5 mg IH Q6HR PRN 05/27/18 [History] Allopurinol [Zyloprim 100 MG] 100 mg PO DAILY 05/27/18 [History] Bumetanide [Bumex] 1 mg PO TID 05/27/18 [History] Carvedilol [Coreg] 25 mg PO BID 05/27/18 [History] Colchicine [Colcrys] 0.6 mg PO DAILY PRN 05/27/18 [History] Docusate [Colace] 200 mg PO DAILY 05/27/18 [History] Ferrous Sulfate [Iron] 325 mg PO DAILY 05/27/18 [History] metOLazone [Zaroxolyn] 5 mg PO DAILY 05/27/18 [History] Digoxin [Lanoxin] 0.125 mg PO QOD 06/17/18 [History] Albuterol Sulfate [Proair Hfa] 2 puff IN Q6H PRN 07/28/18 [History] Ascorbic Acid [Vitamin C] 500 mg PO DAILY 07/28/18 [History] Aspirin 162 mg PO DAILY 07/28/18 [History] Budesonide/Formoterol 160/4.5 [Symbicort 160/4.5] 1 puff IH BIDR 07/28/18 [History] Psyllium Husk/Aspartame [Metamucil Powder] 10 gm PO DAILY PRN 07/28/18 [History] Spironolactone [Aldactone] 50 mg PO DAILY 07/28/18 [History] glipiZIDE [Glucotrol] 2.5 mg PO DAILY 07/28/18 [History] Apixaban [Eliquis] 2.5 mg PO BID 30 Days #60 tablet 08/12/18 [Rx] Atorvastatin [Lipitor] 20 mg PO HS #30 tablet 08/12/18 [Rx] Calcium Acetate [Phos-LO] 667 mg PO TIDWM 30 Days #90 capsule 08/12/18 [Rx] Furosemide [Lasix] 40 mg PO BIDDIURETIC 30 Days #60 tablet 08/12/18 [Rx] LORazepam [Ativan] 0.5 mg PO Q4HR PRN 30 Days #24 tablet 08/12/18 [Rx] predniSONE [PredniSONE] 60 mg PO DAILY 30 Days #90 tablet 08/12/18 [Rx] Allergies/Adverse Reactions: Allergy/AdvReac Type Severity Reaction Status Date / Time meperidine [From Demerol] Allergy Hives Verified 05/25/18 12:28 Date of admission: 07/31/18 16:02 Primary care physician: [facility] Consults: 07/27/18 13:46 Consult to Nephrology [CONS] Stat Consulting Provider: Kidney Debbie/REYNOLD/AUREA/ROSY Reason for Consult: Elevated creatinine of 3.95 Time Notified: 13:00 Call Completed: Yes 07/27/18 16:33 Consult to Cardiac Rehabilitation-Phase1 [CONS] Routine Comment: Reason for Consult: heart failure Call Completed: Yes Consult to Nurse Navigator [CONS] Routine Comment: 07/28/18 09:18 Consult to Nurse Navigator [CONS] Routine Comment: ESRD 08/01/18 10:07 Consult to Interventional Radiology [CONS] Routine Consulting Provider: Radiology Interventional Cols Reason for Consult: Please place temp line. No answer when dialed. Time Notified: 10:07 Call Completed: No 08/01/18 10:28 Consult to Invasive Line Access Team [CONS] Routine Reason for Consult: poor vascular access, CKD IV, pitting edema +4 bilat upper extremeties Line Type: EPIV 02/18/19 14:00 Consult to Dialysis [CONS] ONCE 08/02/18 08:45 Consult to Dialysis [CONS] ONCE 08/02/18 09:59 Consult to Cardiology [CONS] Routine Comment: Consulting Provider: Cardiology Debbie Reason for Consult: new onset afib, not tolerating dialysis Call Completed: Yes 08/04/18 07:30 Consult to Dialysis [CONS] ONCE 08/04/18 10:54 Consult to Occupational Therapy [CONS] Routine Comment: Evaluate, develop and implement POC Reason for Consult: home health eval Does patient have active BEDREST order?: No Is patient medically & hemodynamically stable?: Yes Consult to Physical Therapy [CONS] Routine Comment: Evaluate, develop and implement POC Reason for Consult: Home health eval Does patient have active BEDREST order?: No Is patient medically & hemodynamically stable?: Yes 08/05/18 09:45 Consult to Dialysis [CONS] ONCE 08/08/18 07:15 Consult to Dialysis [CONS] ONCE 08/08/18 10:42 Consult to Head Turning Machine Operator [CONS] Routine Reason for SW Consult: Please set up for outpatient HD. Thanks 08/10/18 07:00 Consult to Dialysis [CONS] QMWF 08/10/18 10:59 Consult to Interventional Radiology [CONS] Routine Consulting Provider: Radiology Interventional Cols Reason for Consult: Permcath placement please. Thanks No answer when tried to call, will try again later. Call Completed: No 08/11/18 08:00 Consult to Dialysis [CONS] ONCE 08/12/18 06:30 Consult to Dialysis [CONS] ONCE 08/12/18 07:00 Consult to Dialysis [CONS] QMWF Discharging clinician: Soraya Bergeron - Constitutional Vitals: Temp Pulse Resp BP Pulse Ox 97.6 F 74 16 130/57 96 08/12/18 03:21 08/12/18 03:21 08/12/18 04:56 08/12/18 03:21 08/12/18 04:56 General appearance: Present: A&O X 3, no acute distress Exam: Constitutional - alert and pleasant Comfortable in bed. H - normocephalic EENT - EOMI. Cardio - Irregular. Not tachycardic No murmur heard Respiratory - Lungs with some rhonchi bilaterally anteriorly. Abdomen - soft, nontender to palpation. No mass. Extremities - Edema noted, slightly worsened over weekend due to lack of dialysis/HUF. Skin - no visible rashes Neuro - a&o x3, follow commands. Good strength and sensation in all extremities. - Patient Status Disposition: Home, Self-Care Condition: Good Functional capacity at discharge: independent ambulation Overall status at discharge: patient is progressing back to baseline - Discharge Instructions Follow Up With: [facility] [Primary Care Provider] - Additional Instructions: Take the Eliquis as prescribed. Follow up with nephrology as scheduled and continue dialysis as an outpatient. You will also need to continue the steroids per nephrology. - Diet and Activity Activity: increase activity as tolerated, resume usual activities as tolerated Diet: diabetic diet, low fat, low cholesterol, low salt diet
[2018-08-12] MEDS: Calcium Acetate 667 MG CAPSULE PO SCH ×3 (07:51→16:49)
[2018-08-12] MEDS: Aspirin Enteric Coated 81 MG Tablet PO SCH (07:51)
[2018-08-12] MEDS: predniSONE 20 MG TABLET PO SCH (07:51)
[2018-08-12] MEDS: Sennosides 8.6 MG TABLET PO SCH (07:51)
[2018-08-12] MEDS: Furosemide 40 MG TABLET PO SCH ×2 (07:51→16:49)
[2018-08-12] MEDS: Apixaban 5 MG TABLET PO SCH ×2 (07:51→20:40)
[2018-08-12] MEDS: Insulin LISPRO 300 UNITS/3 ML VIAL SQ SCH ×3 (07:54→16:49)
--- NOTE | 2018-08-12 08:18 | Physician Discharge Referral ---
Home Health/Hosp Referral Info Transfer to: Home Health Attending Provider: Joel Murrieta Provider in Charge Post Discharge: PCP - Diagnosis (1) Anasarca Priority: Primary Status: Acute (2) Acute kidney injury superimposed on CKD Priority: Secondary Status: Acute (3) Nephrotic syndrome Priority: Secondary Status: Chronic (4) Acute on chronic diastolic (congestive) heart failure Priority: Secondary Status: Chronic (5) Chest pain Priority: Secondary Status: Acute (6) Atrial fibrillation Priority: Secondary Status: Chronic (7) CAD (coronary artery disease) Priority: Secondary Status: Chronic (8) Emphysema lung Priority: Secondary Status: Chronic (9) Diabetes mellitus Priority: Secondary Status: Chronic (10) Jugular vein thrombosis, right Priority: Secondary Status: Acute - Respiratory Orders None Smoking Cessation: Smoking cessation has been advised. For more information, call the [employer] Quit Line at 4-585-UVBV-NOW. - Diet/Nutrition Diet/Nutrition Orders: Renal - Activity Activity Orders: Up ad bhavna, Ambulate - Services Needed Following services are medically necessary services: Physical Therapy, Occupational Therapy - Transfer Medications Prescriptions: Apixaban [Eliquis] 2.5 mg PO BID 30 Days #60 tablet Atorvastatin [Lipitor] 20 mg PO HS #30 tablet Calcium Acetate [Phos-LO] 667 mg PO TIDWM 30 Days #90 capsule Furosemide [Lasix] 40 mg PO BIDDIURETIC 30 Days #60 tablet predniSONE [PredniSONE] 60 mg PO DAILY 30 Days #90 tablet Home Medications: Albuterol Neb [Proventil Neb] 2.5 mg IH Q6HR PRN 05/27/18 [History] Allopurinol [Zyloprim 100 MG] 100 mg PO DAILY 05/27/18 [History] Bumetanide [Bumex] 1 mg PO TID 05/27/18 [History] Carvedilol [Coreg] 25 mg PO BID 05/27/18 [History] Colchicine [Colcrys] 0.6 mg PO DAILY PRN 05/27/18 [History] Docusate [Colace] 200 mg PO DAILY 05/27/18 [History] Ferrous Sulfate [Iron] 325 mg PO DAILY 05/27/18 [History] metOLazone [Zaroxolyn] 5 mg PO DAILY 05/27/18 [History] Digoxin [Lanoxin] 0.125 mg PO QOD 06/17/18 [History] Albuterol Sulfate [Proair Hfa] 2 puff IN Q6H PRN 07/28/18 [History] Ascorbic Acid [Vitamin C] 500 mg PO DAILY 07/28/18 [History] Aspirin 162 mg PO DAILY 07/28/18 [History] Budesonide/Formoterol 160/4.5 [Symbicort 160/4.5] 1 puff IH BIDR 07/28/18 [History] Psyllium Husk/Aspartame [Metamucil Powder] 10 gm PO DAILY PRN 07/28/18 [History] Spironolactone [Aldactone] 50 mg PO DAILY 07/28/18 [History] glipiZIDE [Glucotrol] 2.5 mg PO DAILY 07/28/18 [History] Apixaban [Eliquis] 2.5 mg PO BID 30 Days #60 tablet 08/12/18 [Rx] Atorvastatin [Lipitor] 20 mg PO HS #30 tablet 08/12/18 [Rx] Calcium Acetate [Phos-LO] 667 mg PO TIDWM 30 Days #90 capsule 08/12/18 [Rx] Furosemide [Lasix] 40 mg PO BIDDIURETIC 30 Days #60 tablet 08/12/18 [Rx] predniSONE [PredniSONE] 60 mg PO DAILY 30 Days #90 tablet 08/12/18 [Rx] Allergies/Adverse Reactions: Allergy/AdvReac Type Severity Reaction Status Date / Time meperidine [From Demerol] Allergy Hives Verified 05/25/18 12:28 Certification: Further, I certify that my clinical findings support that this patient is homebound (i.e. 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 He will need PT/OT to maintain his physical strength and so as to not deteriorate once at home. Homebound Reason: Patient requires assistance of a person or device to safely leave home, Leaving home requires considerable and taxing effort due to condition Attestation: My signature below is to certify that this patient is under my care and that I, or nurse practitioner, or a physician's oncology physician assistant working with me, has a [id number] encounter with this patient.
[2018-08-12] MEDS: *HR* LORazepam 2 MG/ML VIAL IVP PRN ×2 (09:18→11:09)
[2018-08-12] MEDS: Budesonide/Formoterol 160/4.5 1 PUFF INH IH SCH ×2 (10:41→22:33)
[2018-08-12] MEDS ORDERED: 0.9 % Sodium Chloride 1,000 ML ONE (12:28)
--- NOTE | 2018-08-12 13:46 | Internal Med Progress Note ---
<Soraya Bergeron R - Last Filed: 08/12/18 13:44> Hospitalist Progress Note - Encounter Date of Encounter: 08/12/18 Time of Encounter: 09:00 - Subjective Interval History: Pt continues to do well with dialysis. Was started on Eliquis last night without problems. Will be ready for DC pending dialysis outpatient set up. [facility] Likely [facility] on Wednesday. - Exam Vitals: Temp Pulse Resp BP Pulse Ox 96.9 F L 73 18 98/73 95 08/12/18 09:30 08/12/18 07:48 08/12/18 09:30 08/12/18 12:00 08/12/18 07:48 Exam: Constitutional - alert and pleasant Comfortable in bed. HEENT - PERRL. EOMI. No obvious edema of face or neck. Cardio - irregular rhythm, normal rate, no audible murmurs. Not tachycardic. Respiratory - Lungs without wheeze or rales. Abdomen - soft, nontender to palpation. No mass. Decreasing edema. Extremities - Markedly decreased edema of B/L UE, 1+ pitting edema. Decreased ed rupert of his B/L lower extremities with 1+ pitting. Overall improving. New permacath noted. Skin - no visible rashes Neuro - a&o x3, follow commands. Good strength and sensation in all extremities. - Assessment and Plan (1) Anasarca Current Visit: Yes Status: Acute Assessment and Plan: Due to volume overload and MAO on CKD, possibly prerenal due to CHF. Plan: Bumex held due to worsening kidney function Continue steroids Dialysis per nephro - cont prn ativan prior to tx Permacath placement on 08/10 for continued outpatient dialysis Nephrology following Edema improving Started on PO Lasix for additional diuresis (2) Acute kidney injury superimposed on CKD Current Visit: No Status: Acute Assessment and Plan: Hx of CKD stage IV and FSGS - significant worsening for past week with 5lb wt ga in Cr 06/22/18 1.90. Cr 4.14 now with BUN 55. Plan: Will monitor renal panel QD. Bumex held due to worsening kidney fxn Nephro following Renal US showed a renal cyst without hydronephrosis Dialysis (3) Nephrotic syndrome Current Visit: No Status: Chronic Assessment and Plan: Hx FSGS s/p cardiac cath in January 2018 Increased swelling of extremities Kidney panel shows Cre 4.01 with u protein of 876, increased from visit in june Plan: As above (4) Acute on chronic diastolic (congestive) heart failure Current Visit: Yes Status: Chronic Assessment and Plan: Acute on Chronic Diastolic CHF echo with EF 40-45%, no evidence of thrombus No diuretics 2/2 MAO on CKD UF/HD as per nephro -cont asa, statin, BB (5) Chest pain Current Visit: Yes Status: Acute Assessment and Plan: Chest pain with dialysis x2 trials Both times with afib Likely secondary to afib from irritation with dialysis catheter Cardio consulted Echo unchanged from previous, pacer working, afib rate controlled - cardio has signed off Ativan prn prior to dialysis will also be initiated (6) Atrial fibrillation Current Visit: No Status: Chronic Assessment and Plan: On Dig - level 0.8 on 08/08 - if tolerates dialysis tomorrow return to normal d ose and recheck level EKG shows afib with paced rhythm Plan: Digoxin Monitor levels and HR Cardio consulted - they state it continues to be rate controlled and have signed off as a cause of his chest pain (7) CAD (coronary artery disease) Current Visit: No Status: Chronic Assessment and Plan: Continue home ASA 325 mg, Coreg, and statin. (8) Emphysema lung Current Visit: No Status: Chronic Assessment and Plan: CXR improved from previous Continue home symbicort PRN nebs but not in acute COPD exacerbation. (9) Diabetes mellitus Current Visit: No Status: Chronic Assessment and Plan: Hx of DM without insulin use Plan: Continue home Glipizide 2.5 mg SSI if needed while in hospital (10) Jugular vein thrombosis, right Current Visit: Yes Status: Acute Assessment and Plan: Identified on RUE US for edema > LUE on 08/06 Discussed with IR findings and okay to leave line in and use, no OR intervention required AC initiated 08/06 after discussion with pt and his Plan: -cont hep gtt was DC'd last night with the addition of Eliquis -nephro is agreeable with the patient being on Eliquis as an outpatient -monitor for bleeding, has had none thus far DVT Prophylaxis: Eliquis - Time Spent with Patient Total time spent is greater than 50% in coordination of care (as documented) at patient's floor/unit and/or counseling patient: Internal Medicine: Result - Labs CBC & Chem 7: 08/12/18 05:25 08/12/18 05:25 Labs: Short CBC 08/12/18 Range/Units 05:25 WBC 17.2 H (4.3-11.1) K/mcL Hgb 8.7 L (12.9-16.9) g/dL Hct 25.3 L (37.5-50.1) % Plt Count 155 (140-400) K/mcL BMP 08/12/18 05:25 Sodium 131 L Potassium 4.4 Chloride 99 Carbon Dioxide 25 BUN 55 H Creatinine 4.14 H Glucose 117 H Calcium 7.1 L Liver Function 08/12/18 Range/Units 05:25 Albumin 1.6 L (3.5-5.7) g/dL - ABG Interpretation ABG results: PT/INR, D-dimer PT 10.1 Seconds (9.4-12.1) 08/10/18 02:45 Consult Discharge Plan - Plan [facility]errals: [facility] [Primary Care Provider] - Prescriptions: LORazepam [Ativan] 0.5 mg PO Q4HR PRN 30 Days #24 tablet PRN Reason: Anxiety Apixaban [Eliquis] 2.5 mg PO BID 30 Days #60 tablet Atorvastatin [Lipitor] 20 mg PO HS #30 tablet Calcium Acetate [Phos-LO] 667 mg PO TIDWM 30 Days #90 capsule Furosemide [Lasix] 40 mg PO BIDDIURETIC 30 Days #60 tablet predniSONE [PredniSONE] 60 mg PO DAILY 30 Days #90 tablet <Joel Murrieta - Last Filed: 08/12/18 15:00> Hospitalist Progress Note - Encounter Date of Encounter: 08/12/18 - Exam Vitals: Temp Pulse Resp BP Pulse Ox 96.9 F L 73 18 98/73 95 08/12/18 09:30 08/12/18 07:48 08/12/18 09:30 08/12/18 12:00 08/12/18 07:48 - Assessment and Plan (1) Atrial fibrillation Current Visit: No Status: Chronic (2) CAD (coronary artery disease) Current Visit: No Status: Chronic (3) Anasarca Current Visit: Yes Status: Acute (4) Nephrotic syndrome Current Visit: No Status: Chronic (5) Emphysema lung Current Visit: No Status: Chronic (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 Current Visit: No Status: Chronic (7) Acute kidney injury superimposed on CKD Current Visit: No Status: Acute (8) Diabetes mellitus Current Visit: No Status: Chronic (9) Chest pain Current Visit: Yes Status: Acute (10) Acute on chronic diastolic (congestive) heart failure Current Visit: Yes Status: Chronic (11) Jugular vein thrombosis, right Current Visit: Yes Status: Acute - Time Spent with Patient Total time spent is greater than 50% in coordination of care (as documented) at patient's floor/unit and/or counseling patient: Internal Medicine: Result - Labs CBC & Chem 7: 08/12/18 05:25 08/12/18 05:25 Labs: Short CBC 08/12/18 Range/Units 05:25 WBC 17.2 H (4.3-11.1) K/mcL Hgb 8.7 L (12.9-16.9) g/dL Hct 25.3 L (37.5-50.1) % Plt Count 155 (140-400) K/mcL BMP 08/12/18 05:25 Sodium 131 L Potassium 4.4 Chloride 99 Carbon Dioxide 25 BUN 55 H Creatinine 4.14 H Glucose 117 H Calcium 7.1 L Liver Function 08/12/18 Range/Units 05:25 Albumin 1.6 L (3.5-5.7) g/dL - ABG Interpretation ABG results: PT/INR, D-dimer PT 10.1 Seconds (9.4-12.1) 08/10/18 02:45 - Attending Attestation I examined this patient and my medical decision-making was reviewed with the Resident Physician on 08/12/18. I agree with the documented findings, disposition and treatment plan as described except to the extent set forth below. Mr Dumont is currently admitted for renal failure and is now on dialysis. He remains moderate to high risk due to potential for worsening clinical status. Mr Dumont is resting in bed. He is awaiting dialysis. No fever or chills. Tolerating Eliquis. No GI issues. Exam alert Comfortable Mucus membranes dry No rash Heart irreg and not tachy No wheeze Abd soft Less edema throughout Moves all extremities I/P 1. Renal failure - tolerating dialysis with Ativan given 2. A fib - no issues 3. IJ thrombus on Eliquis [facility]. Further diagnoses and plan as above. <Soraya Bergeron - Last Filed: 08/12/18 13:44> (5) Chest pain Qualifiers: Chest pain type: unspecified Qualified Code(s): R07.9 - Chest pain, unspeci fied (6) Atrial fibrillation Qualifiers: Atrial fibrillation type: chronic Qualified Code(s): I48.2 - Chronic atrial fibrillation (7) CAD (coronary artery disease) Qualifiers: Coronary Disease-Associated Artery/Lesion type: [place] artery [place] vs. 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 transplanted heart: [place] heart Associated angina: without angina Qualified Code(s): I25.10 - Atherosclerotic heart disease of [place] coronary artery without angina pectoris (5) Emphysema lung Qualifiers: Emphysema type: panlobular Qualified Code(s): J43.1 - Panlobular emphysema (8) Diabetes mellitus Qualifiers: Diabetes mellitus type: type 2 Diabetes mellitus skilled nursing insulin use: witho ut equipment operator intermodal yard use Diabetes mellitus complication status: without complication Qualified Code(s): E11.9 - Type 2 diabetes mellitus without complications (9) Chest pain Qualifiers: Chest pain type: unspecified Qualified Code(s): R07.9 - Chest pain, unspecified
--- NOTE | 2018-08-12 17:24 | Nephrology Progress Note ---
Date of Encounter: 08/12/18 Time of Encounter: 17:24 - Assessment and Plan (1) Acute kidney injury superimposed on CKD Current Visit: No Status: Acute HD ordered for today. Nonoliguric MAO secondary to renal biopsy-proven FSGS and associated with nephro tic syndrome with anasarca. Permcath placed 08/10/18. PO Lasix restarted to help with edema. business and services instructor consult placed for outpatient dialysis. Continue to follow a renal protective strategy as able including dosing renally cleared medications by creatinine clearance / GFR, and avoiding nephrotoxic agents as able. Strict I's and O's and daily weights are recommended as well. Patient seen on dialysis. (2) Anasarca Current Visit: Yes Status: Acute (3) Nephrotic syndrome Current Visit: No Status: Chronic (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 Current Visit: No Status: Chronic (5) Jugular vein thrombosis, right Current Visit: Yes Status: Acute (6) Panic attacks Current Visit: Yes Status: Acute Subjective Principal diagnosis: MAO on CKD Interval history: Patient without new complaint. He feels better on dialysis. Objective - Vital Signs Vital signs: Vital Signs Temp Pulse Resp BP Pulse Ox 08/12/18 16:04 98.3 F 85 18 108/62 100 08/12/18 13:20 97.2 F L 18 108/66 08/12/18 13:00 103/47 08/12/18 12:45 103/60 08/12/18 12:30 96/62 08/12/18 12:15 104/65 08/12/18 12:00 98/73 08/12/18 11:45 109/57 08/12/18 11:30 106/78 08/12/18 11:15 116/69 08/12/18 11:00 117/45 08/12/18 10:45 115/60 08/12/18 10:30 105/47 08/12/18 10:15 120/63 08/12/18 10:00 116/69 08/12/18 09:45 103/69 08/12/18 09:30 96.9 F L 18 114/55 08/12/18 07:48 98.6 F 73 18 134/85 95 08/12/18 04:56 16 96 08/12/18 03:21 97.6 F 74 18 130/57 97 08/11/18 23:28 98.4 F 75 18 137/91 95 08/11/18 21:49 16 97 08/11/18 20:17 97.6 F 84 17 108/67 97 Intake and Output 08/12/18 08/12/18 08/12/18 07:59 15:59 23:59 Intake Total 840 / 840 Output Total 3600 / 3600 Balance -2760 / -2760 Intake: Oral 240 / 240 Intake, Rinseback and Flushes 600 / 600 Output: Total Dialysis (HD) Output 3600 / 3600 Other: Meal Breakfast Percent of Meal Consumed 100% Weight 76.2 kg Blood Glucose* 95 122 231 Hemodialysis Net Fluid Removed 3000 (mL) Patient Weight 08/12/18 23:59 Weight 76.2 kg - General Appearance General appearance: Present: well-developed, well-nourished EENT: Present: ATNC Neurologic: Present: alert and oriented x3 - Lab 08/13/18 07:28 08/13/18 07:28 Most recent lab results Calcium 7.1 mg/dL (8.6-10.3) L 08/12/18 05:25 Phosphorus 5.6 mg/dL (2.7-4.5) H 08/12/18 05:25 Magnesium 2.4 mg/dL (1.6-2.6) 08/07/18 06:30 Urine Creatinine 60 mg/dL 07/27/18 23:45 Urine Sodium 53.9 mEq/L 07/27/18 23:45 Urine Total Protein 876 mg/dL (1-14) H 07/27/18 23:45 Consult Discharge Plan - Plan [facility]errals: [facility] [Primary Care Provider] - Prescriptions: LORazepam [Ativan] 0.5 mg PO Q4HR PRN 30 Days #24 tablet PRN Reason: Anxiety Apixaban [Eliquis] 2.5 mg PO BID 30 Days #60 tablet Atorvastatin [Lipitor] 20 mg PO HS #30 tablet Calcium Acetate [Phos-LO] 667 mg PO TIDWM 30 Days #90 capsule Furosemide [Lasix] 40 mg PO BIDDIURETIC 30 Days #60 tablet predniSONE [PredniSONE] 60 mg PO DAILY 30 Days #90 tablet
[2018-08-13] MEDS: Albuterol 2.5 MG/3 ML NEBULIZER IH SCH ×4 (03:57→22:33)
[2018-08-13] MEDS: Melatonin 3 MG TABLET PO PRN (04:16)
[2018-08-13 07:53] LABS: Hematocrit 22.9 % (37.5-50.1); Hemoglobin 7.6 g/dL (12.9-16.9); Mean Corpuscular HGB Conc 33.2 g/dL (31.6-35.5); Mean Corpuscular Hemoglobin 31.7 pg (28.0-33.3); Mean Corpuscular Volume 95.4 fL (83.0-100.0); Mean Platelet Volume 10.1 fL (9.4-12.4); Platelet Count 126 K/mcL (140-400); Red Cell Distribution Width 13.3 % (11.5-14.5)
[2018-08-13 08:01] LABS: Potassium 4.1 mEq/L (3.5-5.1)
[2018-08-13 08:02] LABS: Albumin 1.6 g/dL (3.5-5.7); Calcium 7.2 mg/dL (8.6-10.3); Phosphorous 4.2 mg/dL (2.7-4.5)
[2018-08-13] MEDS: Insulin LISPRO 300 UNITS/3 ML VIAL SQ SCH ×3 (08:12→17:33)
[2018-08-13] MEDS: Furosemide 40 MG TABLET PO SCH ×2 (08:48→17:32)
[2018-08-13] MEDS: Apixaban 5 MG TABLET PO SCH ×2 (08:48→20:53)
[2018-08-13] MEDS: Sennosides 8.6 MG TABLET PO SCH (08:48)
[2018-08-13] MEDS: Calcium Acetate 667 MG CAPSULE PO SCH ×3 (08:48→17:32)
[2018-08-13] MEDS: predniSONE 20 MG TABLET PO SCH (08:48)
[2018-08-13] MEDS: *HR* Digoxin 0.125 MG TABLET PO SCH (08:48)
[2018-08-13] MEDS: Aspirin Enteric Coated 81 MG Tablet PO SCH (08:48)
[2018-08-13] MEDS: Budesonide/Formoterol 160/4.5 1 PUFF INH IH SCH ×2 (10:07→22:33)
--- NOTE | 2018-08-13 11:15 | Internal Med Progress Note ---
Hospitalist Progress Note - Encounter Date of Encounter: 08/13/18 Time of Encounter: 10:50 - Subjective Interval History: Mr Dumont is currently admitted for renal failure due to FSGS. He remains moderate risk at this time. Mr Dumont is resting at this time. No fever or chills. No CP or SOB. Edema is improving. No GI issues. [facility] chair [facility]. He will be staying in hospital for the weekend. - Exam Vitals: Temp Pulse Resp BP Pulse Ox 97.9 F 64 16 123/68 96 08/13/18 11:09 08/13/18 11:09 08/13/18 11:09 08/13/18 11:09 08/13/18 11:09 Exam: Constitutional - alert and pleasant Comfortable in bed. H - normocephalic EENT - EOMI. No obvious edema of face or neck. Cardio - Irregular. Not tachycardic Respiratory - Lungs without wheeze or rales. Good effort. Abdomen - soft, nontender to palpation. No mass. Decreasing edema. Extremities - Markedly decreased edema of B/L UE, and decreased edema of lower extremities. New permacath noted. Skin - no visible rashes Neuro - a&o x3, follow commands. Good strength and sensation in all extremities. - Assessment and Plan (1) Jugular vein thrombosis, right Current Visit: Yes Status: Acute Assessment and Plan: Identified on RUE US for edema > LUE on 08/06 Discussed with IR findings and okay to leave line in and use, no OR intervention required AC initiated 08/06 after discussion with pt and his Plan: -Currently on PO Eliquis and tolerating this medication at this time. No bleeding noted (2) Nephrotic syndrome Current Visit: No Status: Chronic Assessment and Plan: due to FSGS Currently on dialysis. (3) FSGS (focal segmental glomerulosclerosis) with nephrosis Current Visit: No Status: Chronic Assessment and Plan: On chronic dialysis. (4) Anasarca Current Visit: Yes Status: Acute Assessment and Plan: Anasarca 2/2 Nephrotic syndrome 2/2 FSGS Continues to slowly improve on dialysis. (5) Atrial fibrillation Current Visit: No Status: Chronic Assessment and Plan: Rate controlled Paroxysmal Afib On Dig echo EF 45% and indeterminant diastolic dysfunction, device interrogation by cards he was not on half-way AC at home due to anemia and is pending outpt cscope, held full AC due to bleeding from RIJ site and anemia now with new RIJ thrombis on hep gtt with plan to transition to oral agent later this admission prior to discharge -cards has signed off Plan: -On PO Eliquis at this time. (6) CAD (coronary artery disease) Current Visit: No Status: Chronic Assessment and Plan: cont home meds No symptoms at this time. (7) Emphysema lung Current Visit: No Status: Chronic Assessment and Plan: stable Continue home symbicort PRN nebs (8) Diabetes mellitus Current Visit: No Status: Chronic Assessment and Plan: Hx of DM without insulin use hold home Glipizide as per nephro recs Plan: SSI prn (9) CHF (congestive heart failure) Current Visit: Yes Status: Chronic Assessment and Plan: Not in exacerbation at this time. DVT Prophylaxis: Eliquis - Time Spent with Patient Total time spent is greater than 50% in coordination of care (as documented) at patient's floor/unit and/or counseling patient: Internal Medicine: Result - Labs CBC & Chem 7: 08/13/18 07:28 08/13/18 07:28 Labs: Short CBC 08/13/18 Range/Units 07:28 WBC 13.1 H (4.3-11.1) K/mcL Hgb 7.6 L (12.9-16.9) g/dL Hct 22.9 L (37.5-50.1) % Plt Count 126 L (140-400) K/mcL BMP 08/13/18 07:28 Sodium 134 L Potassium 4.1 Chloride 102 Carbon Dioxide 29 BUN 37 H Creatinine 3.67 H Glucose 81 Calcium 7.2 L Liver Function 08/13/18 Range/Units 07:28 Albumin 1.6 L (3.5-5.7) g/dL - ABG Interpretation ABG results: PT/INR, D-dimer PT 10.1 Seconds (9.4-12.1) 08/10/18 02:45 Consult Discharge Plan - Plan [facility]errals: [facility] [Primary Care Provider] - Prescriptions: LORazepam [Ativan] 0.5 mg PO Q4HR PRN 30 Days #24 tablet PRN Reason: Anxiety Apixaban [Eliquis] 2.5 mg PO BID 30 Days #60 tablet Atorvastatin [Lipitor] 20 mg PO HS #30 tablet Calcium Acetate [Phos-LO] 667 mg PO TIDWM 30 Days #90 capsule Furosemide [Lasix] 40 mg PO BIDDIURETIC 30 Days #60 tablet predniSONE [PredniSONE] 60 mg PO DAILY 30 Days #90 tablet (5) Atrial fibrillation Qualifiers: Atrial fibrillation type: chronic Qualified Code(s): I48.2 - Chronic atrial fibrillation (6) CAD (coronary artery disease) Qualifiers: Coronary Disease-Associated Artery/Lesion type: [place] artery [place] vs. transplanted heart: [place] heart Associated angina: without angina Qualified Code(s): I25.10 - Atherosclerotic heart disease of [place] coronary artery without angina pectoris (7) Emphysema lung Qualifiers: Emphysema type: panlobular Qualified Code(s): J43.1 - Panlobular emphysema (8) Diabetes mellitus Qualifiers: Diabetes mellitus type: type 2 Diabetes mellitus terminal superintendent insulin use: without terminal superintendent use Diabetes mellitus complication status: without co mplication Qualified Code(s): E11.9 - Type 2 diabetes mellitus without com plications (9) CHF (congestive heart failure) Qualifiers: Heart failure type: combined systolic and diastolic Heart failure chronicity: chronic Qualified Code(s): I50.42 - Chronic combined systolic (congestive) and diastolic (congestive) heart failure
--- NOTE | 2018-08-13 15:24 | Nephrology Progress Note ---
Date of Encounter: 08/13/18 Time of Encounter: 15:22 - Assessment and Plan (1) Acute kidney injury superimposed on CKD Current Visit: No Status: Acute HD on hold. Plan for HD Wednesday. Nonoliguric MAO secondary to renal biopsy-proven FSGS and associated with nephrotic syndrome with anasarca. Permcath placed 08/10/18. PO Lasix restarted to help with edema. technical services specialist consult placed for outpatient dialysis. Continue to follow a renal protective strategy as able including dosing renally cleared medications by creatinine clearance / GFR, and avoiding nephrotoxic agents as able. Strict I's and O's and daily weights are recommended as well. Patient seen on dialysis. (2) Anasarca Current Visit: Yes Status: Acute (3) Nephrotic syndrome Current Visit: No Status: Chronic (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 Current Visit: No Status: Chronic (5) Jugular vein thrombosis, right Current Visit: Yes Status: Acute (6) Panic attacks Current Visit: Yes Status: Acute Subjective Principal diagnosis: MAO on CKD Interval history: Patient without new complaint. His is at his bedside. Objective - Vital Signs Vital signs: Vital Signs Temp Pulse Resp BP Pulse Ox 08/13/18 15:06 98.5 F 70 17 117/61 96 08/13/18 11:09 97.9 F 64 16 123/68 96 08/13/18 10:07 16 96 08/13/18 07:52 97.9 F 74 16 131/79 95 08/13/18 05:03 97.7 F 50 17 122/81 96 08/13/18 03:58 15 98 08/13/18 01:08 97.8 F 102 17 131/86 93 08/12/18 22:34 14 98 08/12/18 20:52 98.0 F 100 16 122/75 94 08/12/18 16:04 98.3 F 85 18 108/62 100 08/12/18 15:29 18 100 Intake and Output 08/12/18 08/13/18 08/13/18 23:59 07:59 15:59 Output Total 100 / 100 Balance -100 / -100 Output: Urine 100 / 100 Other: Blood Glucose* 231 69 109 - General Appearance General appearance: Present: well-developed, well-nourished EENT: Present: ATNC Neurologic: Present: alert and oriented x3 Psychiatric: Present: mood/affect appropriate - Lab 08/13/18 07:28 08/13/18 07:28 Most recent lab results Calcium 7.2 mg/dL (8.6-10.3) L 08/13/18 07:28 Phosphorus 4.2 mg/dL (2.7-4.5) 08/13/18 07:28 Magnesium 2.4 mg/dL (1.6-2.6) 08/07/18 06:30 Urine Creatinine 60 mg/dL 07/27/18 23:45 Urine Sodium 53.9 mEq/L 07/27/18 23:45 Urine Total Protein 876 mg/dL (1-14) H 07/27/18 23:45 Consult Discharge Plan - Plan [facility]errals: [facility] [Primary Care Provider] - Prescriptions: LORazepam [Ativan] 0.5 mg PO Q4HR PRN 30 Days #24 tablet PRN Reason: Anxiety Apixaban [Eliquis] 2.5 mg PO BID 30 Days #60 tablet Atorvastatin [Lipitor] 20 mg PO HS #30 tablet Calcium Acetate [Phos-LO] 667 mg PO TIDWM 30 Days #90 capsule Furosemide [Lasix] 40 mg PO BIDDIURETIC 30 Days #60 tablet predniSONE [PredniSONE] 60 mg PO DAILY 30 Days #90 tablet
[2018-08-14] MEDS: Albuterol 2.5 MG/3 ML NEBULIZER IH SCH ×4 (04:34→22:54)
[2018-08-14] MEDS: Budesonide/Formoterol 160/4.5 1 PUFF INH IH SCH ×2 (07:29→22:54)
--- NOTE | 2018-08-14 08:15 | Nephrology Progress Note ---
Date of Encounter: 08/14/18 Time of Encounter: 08:14 - Assessment and Plan (1) Acute kidney injury superimposed on CKD Current Visit: No Status: Acute Plan for HD Wednesday. Nonoliguric MAO secondary to renal biopsy-proven FSGS and associated with nephro tic syndrome with anasarca. Permcath placed 08/10/18. PO Lasix restarted to help with edema. inpatient services rn consult placed for outpatient dialysis. Continue to follow a renal protective strategy as able including dosing renally cleared medications by creatinine clearance / GFR, and avoiding nephrotoxic agents as able. Strict I's and O's and daily weights are recommended as well. Patient is now considered ESRD. Will start low dose ARB and titrate as tolerated by his blood pressure for proteinuria. (2) Anasarca Current Visit: Yes Status: Acute (3) Nephrotic syndrome Current Visit: No Status: Chronic (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 Current Visit: No Status: Chronic (5) Jugular vein thrombosis, right Current Visit: Yes Status: Acute (6) Panic attacks Current Visit: Yes Status: Acute Subjective Principal diagnosis: MAO on CKD Interval history: Patient without new complaint. He wants to go home. Awaiting ID approval of outpatient dialysis. Objective - Vital Signs Vital signs: Vital Signs Temp Pulse Resp BP Pulse Ox 08/14/18 07:47 97.6 F 52 17 137/68 94 08/14/18 05:00 98.9 F 56 17 131/81 94 08/14/18 04:35 14 95 08/14/18 01:20 98.9 F 73 17 115/65 96 08/13/18 22:34 14 95 08/13/18 20:45 99.2 F 70 17 109/66 96 08/13/18 15:26 16 96 08/13/18 15:06 98.5 F 70 17 117/61 96 08/13/18 11:09 97.9 F 64 16 123/68 96 08/13/18 10:07 16 96 Intake and Output 08/13/18 08/14/18 08/14/18 23:59 07:59 15:59 Output Total 100 / 100 Balance -100 / -100 Output: Urine 100 / 100 Other: # Voids 2 Weight 76.3 kg Blood Glucose* 153 95 Patient Weight 08/14/18 23:59 Weight 76.3 kg - General Appearance General appearance: Present: well-developed, well-nourished EENT: Present: ATNC Additional Comments: He is sitting up in a chair. Neck: Present: supple Additional Comments: bradycardic Integumentary: Present: warm and dry Neurologic: Present: alert and oriented x3 Psychiatric: Present: mood/affect appropriate - Lab 08/14/18 08:11 08/14/18 08:11 Most recent lab results Calcium 7.2 mg/dL (8.6-10.3) L 08/13/18 07:28 Phosphorus 4.2 mg/dL (2.7-4.5) 08/13/18 07:28 Magnesium 2.4 mg/dL (1.6-2.6) 08/07/18 06:30 Urine Creatinine 60 mg/dL 07/27/18 23:45 Urine Sodium 53.9 mEq/L 07/27/18 23:45 Urine Total Protein 876 mg/dL (1-14) H 07/27/18 23:45 Consult Discharge Plan - Plan [facility]errals: [facility]Primary Care Provider[facility] - Prescriptions: LORazepam [Ativan] 0.5 mg PO Q4HR PRN 30 Days #24 tablet PRN Reason: Anxiety Apixaban [Eliquis] 2.5 mg PO BID 30 Days #60 tablet Atorvastatin [Lipitor] 20 mg PO HS #30 tablet Calcium Acetate [Phos-LO] 667 mg PO TIDWM 30 Days #90 capsule Furosemide [Lasix] 40 mg PO BIDDIURETIC 30 Days #60 tablet predniSONE [PredniSONE] 60 mg PO DAILY 30 Days #90 tablet
[2018-08-14] MEDS: Insulin LISPRO 300 UNITS/3 ML VIAL SQ SCH ×3 (08:55→18:10)
[2018-08-14 09:07] LABS: Hematocrit 24.9 % (37.5-50.1); Hemoglobin 8.1 g/dL (12.9-16.9); Mean Corpuscular HGB Conc 32.5 g/dL (31.6-35.5); Mean Corpuscular Hemoglobin 31.9 pg (28.0-33.3); Mean Platelet Volume 10.2 fL (9.4-12.4); Platelet Count 136 K/mcL (140-400); Red Blood Count 2.54 M/mcL (4.19-5.50); Red Cell Distribution Width 13.3 % (11.5-14.5)
[2018-08-14] MEDS: Calcium Acetate 667 MG CAPSULE PO SCH ×3 (09:12→18:09)
[2018-08-14] MEDS: Furosemide 40 MG TABLET PO SCH ×2 (09:12→18:09)
[2018-08-14] MEDS: Aspirin Enteric Coated 81 MG Tablet PO SCH (09:12)
[2018-08-14] MEDS: predniSONE 20 MG TABLET PO SCH (09:12)
[2018-08-14] MEDS: Sennosides 8.6 MG TABLET PO SCH (09:12)
[2018-08-14] MEDS: Apixaban 5 MG TABLET PO SCH ×2 (09:13→21:24)
[2018-08-14 09:25] LABS: Albumin 1.9 g/dL (3.5-5.7); Calcium 7.6 mg/dL (8.6-10.3); Phosphorous 5.1 mg/dL (2.7-4.5); Potassium 4.4 mEq/L (3.5-5.1)
--- NOTE | 2018-08-14 15:41 | Internal Med Progress Note ---
Hospitalist Progress Note - Encounter Date of Encounter: 08/14/18 Time of Encounter: 11:30 - Subjective Interval History: Mr Dumont is currently admitted for renal failure due to FSGS. He remains moderate to high risk due to potential for worsening clinical status. Mr Dumont feels OK. No fever or chills. No CP or SOB. Little more cough today. No new issues overnight. - Exam Vitals: Temp Pulse Resp BP Pulse Ox 98.1 F 74 17 170/73 95 08/14/18 12:08/14/18 12:08/14/18 12:08/14/18 12:08/14/18 12:01 Exam: Constitutional - alert and pleasant Comfortable in bed. H - normocephalic EENT - EOMI. Cardio - Irregular. Not tachycardic No murmur heard Respiratory - Lungs with some rhonchi bilaterally anteriorly. Abdomen - soft, nontender to palpation. No mass. Extremities - Edema noted but improved. Skin - no visible rashes Neuro - a&o x3, follow commands. Good strength and sensation in all extremities. - Assessment and Plan (1) Jugular vein thrombosis, right Current Visit: Yes Status: Acute Assessment and Plan: Identified on RUE US for edema > LUE on 08/06 Discussed with IR findings and okay to leave line in and use, no OR intervention required AC initiated 08/06 after discussion with pt and his Plan: -Continue PO Eliquis. Tolerating med well. (2) Nephrotic syndrome Current Visit: No Status: Chronic Assessment and Plan: due to FSGS Currently on dialysis. Plan for treatment tomorrow. (3) FSGS (focal segmental glomerulosclerosis) with nephrosis Current Visit: No Status: Chronic Assessment and Plan: On chronic dialysis. (4) Anasarca Current Visit: Yes Status: Acute Assessment and Plan: Anasarca 2/2 Nephrotic syndrome 2/2 FSGS Continues to slowly improve on dialysis. No acute issue. (5) Atrial fibrillation Current Visit: No Status: Chronic Assessment and Plan: Rate controlled Paroxysmal Afib On Dig echo EF 45% and indeterminant diastolic dysfunction, device interrogation by cards he was not on box blank machine feeder AC at home due to anemia and is pending outpt cscope, held full AC due to bleeding from RIJ site and anemia now with new RIJ thrombis on hep gtt with plan to transition to oral agent later this admission prior to discharge -cards has signed off Plan: -On PO Eliquis at this time. Rate is controlled. (6) CAD (coronary artery disease) Current Visit: No Status: Chronic Assessment and Plan: cont home meds No symptoms at this time. (7) Emphysema lung Current Visit: No Status: Chronic Assessment and Plan: stable Continue home symbicort PRN nebs (8) Diabetes mellitus Current Visit: No Status: Chronic Assessment and Plan: Hx of DM without insulin use hold home Glipizide as per nephro recs Plan: SSI prn (9) CHF (congestive heart failure) Current Visit: Yes Status: Chronic Assessment and Plan: Not in exacerbation at this time. - Time Spent with Patient Total time spent is greater than 50% in coordination of care (as documented) at patient's floor/unit and/or counseling patient: Internal Medicine: Result - Labs CBC & Chem 7: 08/14/18 08:11 08/14/18 08:11 Labs: Short CBC 08/14/18 Range/Units 08:11 WBC 13.7 H (4.3-11.1) K/mcL Hgb 8.1 L (12.9-16.9) g/dL Hct 24.9 L (37.5-50.1) % Plt Count 136 L (140-400) K/mcL BMP 08/14/18 08:11 Sodium 134 L Potassium 4.4 Chloride 104 Carbon Dioxide 25 BUN 50 H Creatinine 4.85 H Glucose 86 Calcium 7.6 L Liver Function 08/14/18 Range/Units 08:11 Albumin 1.9 L (3.5-5.7) g/dL - ABG Interpretation ABG results: PT/INR, D-dimer PT 10.1 Seconds (9.4-12.1) 08/10/18 02:45 Consult Discharge Plan - Plan Referrals: [facility] [Primary Care Provider] - Prescriptions: LORazepam [Ativan] 0.5 mg PO Q4HR PRN 30 Days #24 tablet PRN Reason: Anxiety Apixaban [Eliquis] 2.5 mg PO BID 30 Days #60 tablet Atorvastatin [Lipitor] 20 mg PO HS #30 tablet Calcium Acetate [Phos-LO] 667 mg PO TIDWM 30 Days #90 capsule Furosemide [Lasix] 40 mg PO BIDDIURETIC 30 Days #60 tablet predniSONE [PredniSONE] 60 mg PO DAILY 30 Days #90 tablet (5) Atrial fibrillation Qualifiers: Atrial fibrillation type: chronic Qualified Code(s): I48.2 - Chronic atrial fibrillation (6) CAD (coronary artery disease) Qualifiers: Coronary Disease-Associated Artery/Lesion type: [place] artery [place] vs. transplanted heart: [place] heart Associated angina: without angina Qualified Code(s): I25.10 - Atherosclerotic heart disease of [place] coronary artery without angina pectoris (7) Emphysema lung Qualifiers: Emphysema type: panlobular Qualified Code(s): J43.1 - Panlobular emphysema (8) Diabetes mellitus Qualifiers: Diabetes mellitus type: type 2 Diabetes mellitus box blank machine feeder insulin use: without box blank machine feeder use Diabetes mellitus complication status: without comp lication Qualified Code(s): E11.9 - Type 2 diabetes mellitus without compl ications (9) CHF (congestive heart failure) Qualifiers: Heart failure type: combined systolic and diastolic Heart failure chronicity: chronic Qualified Code(s): I50.42 - Chronic combined systolic (congestive) and diastolic (congestive) heart failure
[2018-08-15] MEDS: Albuterol 2.5 MG/3 ML NEBULIZER IH SCH ×4 (04:19→22:38)
[2018-08-15 06:38] LABS: Hematocrit 22.9 % (37.5-50.1); Hemoglobin 7.7 g/dL (12.9-16.9); Mean Corpuscular HGB Conc 33.6 g/dL (31.6-35.5); Mean Corpuscular Hemoglobin 32.5 pg (28.0-33.3); Mean Corpuscular Volume 96.6 fL (83.0-100.0); Mean Platelet Volume 10.2 fL (9.4-12.4); Platelet Count 129 K/mcL (140-400); Red Blood Count 2.37 M/mcL (4.19-5.50); Red Cell Distribution Width 13.2 % (11.5-14.5)
[2018-08-15 06:51] LABS: Albumin 1.7 g/dL (3.5-5.7); Calcium 7.7 mg/dL (8.6-10.3); Phosphorous 5.2 mg/dL (2.7-4.5); Potassium 4.5 mEq/L (3.5-5.1)
[2018-08-15] MEDS ORDERED: 0.9 % Sodium Chloride 250 ML IVC PRN (07:38)
[2018-08-15] MEDS ORDERED: *HR* Heparin 10,000 UNIT/10 ML VIAL IV PRN (07:38)
[2018-08-15] MEDS: predniSONE 20 MG TABLET PO SCH (07:39)
[2018-08-15] MEDS: *HR* Digoxin 0.125 MG TABLET PO SCH (07:39)
[2018-08-15] MEDS: Apixaban 5 MG TABLET PO SCH ×2 (07:41→21:02)
[2018-08-15] MEDS: Aspirin Enteric Coated 81 MG Tablet PO SCH (07:42)
[2018-08-15] MEDS: Furosemide 40 MG TABLET PO SCH ×2 (07:42→17:14)
[2018-08-15] MEDS: Sennosides 8.6 MG TABLET PO SCH (07:42)
[2018-08-15] MEDS: Calcium Acetate 667 MG CAPSULE PO SCH ×3 (07:44→17:14)
[2018-08-15] MEDS ORDERED: 0.9 % Sodium Chloride 1,000 ML PRIME SCH (07:45)
[2018-08-15] MEDS: Insulin LISPRO 300 UNITS/3 ML VIAL SQ SCH ×3 (09:43→17:14)
[2018-08-15] MEDS: Budesonide/Formoterol 160/4.5 1 PUFF INH IH SCH ×2 (09:58→22:38)
--- NOTE | 2018-08-15 10:13 | Nephrology Progress Note ---
Addendum entered and electronically signed by Jack Rubalcava MD 08/15/18 21:57: I examined this patient and discussed the medical decision-making with MATEUS Foley. I agree with the documented findings, disposition and treatment plan as described except to the extent set forth below. Patient seen on dialysis. Original Note: Date of Encounter: 08/15/18 Time of Encounter: 10:11 - Assessment and Plan (1) Acute kidney injury superimposed on CKD Current Visit: No Status: Acute Plan for HD today. Nonoliguric MAO secondary to renal biopsy-proven FSGS and associated with nephrotic syndrome with anasarca. Permcath placed 08/10/18. PO Lasix restarted to help with edema. director of social services consult placed for outpatient dialysis, hoping for [facility]. [place] still approving discharge and HD outpatient. Continue to follow a renal protective strategy as able including dosing renally cleared medications by creatinine clearance / GFR, and avoiding nephrotoxic agents as able. Strict I's and O's and daily weights are recommended as well. Patient is now considered ESRD. (2) Anasarca Current Visit: Yes Status: Acute Continue HD/UF outpatient. (3) Nephrotic syndrome Current Visit: No Status: Chronic Recommend a fluid restriction, Low Na diet. (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 Current Visit: No Status: Chronic Biopsy proven, appears idiopathic with negative malignancy workup (5) Jugular vein thrombosis, right Current Visit: Yes Status: Acute Appears resolved, is not going home on anticoagulation. (6) Panic attacks Current Visit: Yes Status: Acute Resolved. Subjective Principal diagnosis: MAO on CKD Interval history: Seen and examined doing well. at bedside. Denies chest pain or shortness of breath. Denies nausea, vomiting or diarrhea. No acute events overnight. States he is ready go home. Objective - Vital Signs Vital signs: Vital Signs Temp Pulse Resp BP Pulse Ox 08/15/18 09:58 16 93 08/15/18 07:11 97.8 F 87 16 146/75 93 08/15/18 05:00 98.6 F 73 17 165/71 95 08/15/18 04:20 18 97 08/14/18 23:30 98.7 F 76 17 172/76 96 08/14/18 22:54 20 94 08/14/18 19:35 98.8 F 84 17 173/79 97 08/14/18 16:56 97.9 F 68 18 164/76 96 08/14/18 16:12 16 97 08/14/18 12:01 98.1 F 74 17 170/73 95 Intake and Output 08/14/18 08/15/18 08/15/18 23:59 07:59 15:59 Intake Total 360 / 360 Balance 360 / 360 Intake: Oral 360 / 360 Other: Meal Breakfast Percent of Meal Consumed 75% Weight 75.7 kg Blood Glucose* 155 94 - General Appearance General appearance: Present: well-developed, well-nourished EENT: Present: ATNC, hearing intact, vision intact Neck: Present: supple Respiratory: Present: clear Cardiology: Present: edema (+3 pitting edema noted to bilateral upper extremity, +1 noted to bilateral lower extremities.), normal S1, normal S2 Dialysis Vascular Access: Venous Catheter (Permcath, DRSG C/D/I) Gastrointestinal: Present: normoactive bowel sounds, no tenderness, no guarding Integumentary: Present: no rash, warm and dry Neurologic: Present: alert and oriented x3 Musculoskeletal: Present: no deformities, no erythema Psychiatric: Present: mood/affect appropriate, cooperative - Lab 08/15/18 05:47 08/15/18 05:47 Most recent lab results Calcium 7.7 mg/dL (8.6-10.3) L 08/15/18 05:47 Phosphorus 5.2 mg/dL (2.7-4.5) H 08/15/18 05:47 Magnesium 2.4 mg/dL (1.6-2.6) 08/07/18 06:30 Urine Creatinine 60 mg/dL 07/27/18 23:45 Urine Sodium 53.9 mEq/L 07/27/18 23:45 Urine Total Protein 876 mg/dL (1-14) H 07/27/18 23:45 Consult Discharge Plan - Plan Referrals: [facility] [Primary Care Provider] - Prescriptions: LORazepam [Ativan] 0.5 mg PO Q4HR PRN 30 Days #24 tablet PRN Reason: Anxiety RX: Apixaban [Eliquis] 2.5 mg PO BID 30 Days #60 tablet RX: Atorvastatin [Lipitor] 20 mg PO HS #30 tablet RX: Calcium Acetate [Phos-LO] 667 mg PO TIDWM 30 Days #90 capsule RX: Furosemide [Lasix] 40 mg PO BIDDIURETIC 30 Days #60 tablet RX: predniSONE [PredniSONE] 60 mg PO DAILY 30 Days #90 tablet
[2018-08-15] MEDS: *HR* LORazepam 0.5 MG TABLET PO PRN ×2 (10:27→12:10)
[2018-08-15] MEDS ORDERED: 0.9 % Sodium Chloride 1,000 ML ONE (12:43)
--- NOTE | 2018-08-15 15:57 | Internal Med Progress Note ---
<Soraya Bergeron R - Last Filed: 08/15/18 15:54> Hospitalist Progress Note - Encounter Date of Encounter: 08/15/18 Time of Encounter: 09:10 - Subjective Interval History: Pt has minor increase in swelling over the weekend but attributes it to his lack of dialysis. Will get dialysis today. DC pending chair time. Still awaiting [facility] get [facility] to . - Exam Vitals: Temp Pulse Resp BP Pulse Ox 96.9 F L 87 16 107/69 93 08/15/18 14:08 08/15/18 07:11 08/15/18 15:45 08/15/18 14:08 08/15/18 15:45 Exam: Constitutional - alert and pleasant Comfortable in bed. H - normocephalic EENT - EOMI. Cardio - Irregular. Not tachycardic No murmur heard Respiratory - Lungs with some rhonchi bilaterally anteriorly. Abdomen - soft, nontender to palpation. No mass. Extremities - Edema noted, slightly worsened over weekend due to lack of dialysis/HUF. Skin - no visible rashes Neuro - a&o x3, follow commands. Good strength and sensation in all extremities. - Assessment and Plan (1) ESRD (end stage renal disease) on dialysis Current Visit: Yes Status: Acute Assessment and Plan: Secondary to FSGS nephrotic syndrome Now on dialysis MWF Continue steroids Treatment per nephro (2) Anasarca Current Visit: Yes Status: Acute Assessment and Plan: Anasarca secondary to FSGS Nephrotic syndrome Continues to slowly improve on dialysis. No acute issue. (3) Nephrotic syndrome Current Visit: No Status: Chronic Assessment and Plan: due to ESRD secondary to FSGS Currently on dialysis. Plan for treatment tomorrow. (4) Acute on chronic diastolic (congestive) heart failure Current Visit: Yes Status: Suspected Assessment and Plan: No longer in exacerbation at this time. (5) Chest pain Current Visit: Yes Status: Acute Assessment and Plan: Cards consulted and eventually ruled it was likely secondary to panic attacks PO Ativan ordered for dialysis with good response (6) Atrial fibrillation Current Visit: No Status: Chronic Assessment and Plan: Rate controlled Paroxysmal Afib On Dig echo EF 45% and indeterminant diastolic dysfunction, device interrogation by cards he was not on half-way AC at home due to anemia and is pending outpt cscope, held full AC due to bleeding from RIJ site and anemia now with new RIJ thrombis on hep gtt with plan to transition to oral agent later this admission prior to discharge -cards has signed off Plan: -On PO Eliquis at this time. Rate is controlled with dig. (7) CAD (coronary artery disease) Current Visit: No Status: Chronic Assessment and Plan: cont home meds No symptoms at this time. (8) Emphysema lung Current Visit: No Status: Chronic Assessment and Plan: stable Continue home symbicort PRN nebs (9) Diabetes mellitus Current Visit: No Status: Chronic Assessment and Plan: Hx of DM without insulin use hold home Glipizide as per nephro recs Plan: SSI prn (10) Jugular vein thrombosis, right Current Visit: Yes Status: Acute Assessment and Plan: Identified on RUE US for edema > LUE on 08/06 Discussed with IR findings and okay to leave line in and use, no OR intervention required AC initiated 08/06 after discussion with pt and his Plan: -Continue PO Eliquis. Tolerating med well. DVT Prophylaxis: Eliquis - Time Spent with Patient Total time spent is greater than 50% in coordination of care (as documented) at patient's floor/unit and/or counseling patient: Internal Medicine: Result - Labs CBC & Chem 7: 08/15/18 05:47 08/15/18 05:47 Labs: Short CBC 08/15/18 Range/Units 05:47 WBC 11.4 H (4.3-11.1) K/mcL Hgb 7.7 L (12.9-16.9) g/dL Hct 22.9 L (37.5-50.1) % Plt Count 129 L (140-400) K/mcL BMP 08/15/18 05:47 Sodium 133 L Potassium 4.5 Chloride 103 Carbon Dioxide 27 BUN 65 H Creatinine 5.51 H Glucose 99 Calcium 7.7 L Liver Function 08/15/18 Range/Units 05:47 Albumin 1.7 L (3.5-5.7) g/dL - ABG Interpretation ABG results: PT/INR, D-dimer PT 10.1 Seconds (9.4-12.1) 08/10/18 02:45 Consult Discharge Plan - Plan Additional Instructions: Take the Eliquis as prescribed. Follow up with nephrology as scheduled and continue dialysis as an outpatient. You will also need to continue the steroids per nephrology. Referrals: [facility] [Primary Care Provider] - Prescriptions: LORazepam [Ativan] 0.5 mg PO Q4HR PRN 30 Days #24 tablet PRN Reason: Anxiety Apixaban [Eliquis] 2.5 mg PO BID 30 Days #60 tablet Atorvastatin [Lipitor] 20 mg PO HS #30 tablet Calcium Acetate [Phos-LO] 667 mg PO TIDWM 30 Days #90 capsule Furosemide [Lasix] 40 mg PO BIDDIURETIC 30 Days #60 tablet predniSONE [PredniSONE] 60 mg PO DAILY 30 Days #90 tablet <Joel Murrieta - Last Filed: 08/15/18 18:43> Hospitalist Progress Note - Encounter Date of Encounter: 08/15/18 - Exam Vitals: Temp Pulse Resp BP Pulse Ox 98.9 F 66 18 127/86 92 08/15/18 16:57 08/15/18 16:57 08/15/18 16:57 08/15/18 16:57 08/15/18 16:57 - Assessment and Plan (1) Jugular vein thrombosis, right Current Visit: Yes Status: Acute (2) Nephrotic syndrome Current Visit: No Status: Chronic (3) FSGS (focal segmental glomerulosclerosis) with nephrosis Current Visit: No Status: Chronic (4) Anasarca Current Visit: Yes Status: Acute (5) Atrial fibrillation Current Visit: No Status: Chronic (6) CAD (coronary artery disease) Current Visit: No Status: Chronic (7) Emphysema lung Current Visit: No Status: Chronic (8) Diabetes mellitus Current Visit: No Status: Chronic (9) CHF (congestive heart failure) Current Visit: Yes Status: Chronic - Time Spent with Patient Total time spent is greater than 50% in coordination of care (as documented) at patient's floor/unit and/or counseling patient: Internal Medicine: Result - Labs CBC & Chem 7: 08/15/18 05:47 08/15/18 05:47 Labs: Short CBC 08/15/18 Range/Units 05:47 WBC 11.4 H (4.3-11.1) K/mcL Hgb 7.7 L (12.9-16.9) g/dL Hct 22.9 L (37.5-50.1) % Plt Count 129 L (140-400) K/mcL BMP 08/15/18 05:47 Sodium 133 L Potassium 4.5 Chloride 103 Carbon Dioxide 27 BUN 65 H Creatinine 5.51 H Glucose 99 Calcium 7.7 L Liver Function 08/15/18 Range/Units 05:47 Albumin 1.7 L (3.5-5.7) g/dL - ABG Interpretation ABG results: PT/INR, D-dimer PT 10.1 Seconds (9.4-12.1) 08/10/18 02:45 - Attending Attestation I examined this patient and my medical decision-making was reviewed with the Resident Physician on 08/15/18. I agree with the documented findings, disposition and treatment plan as described except to the extent set forth below. Mr Dumont is currently admitted for renal failure due to FSGS. He remains moderate risk at this time. Mr Dmuont feels OK. No fever or chills. [facility] awaiting [facility]. Exam alert Comfortable Mucus membranes dry Heart reg No wheeze I/P 1. Renal failure 2. FSGS Awaiting approval for dialysis site. Further diagnoses and plan as above. <Soraya Bergeron R - Last Filed: 08/15/18 15:54> (5) Chest pain Qualifiers: Chest pain type: unspecified Qualified Code(s): R07.9 - Chest pain, unspecified (6) Atrial fibrillation Qualifiers: Atrial fibrillation type: chronic Qualified Code(s): I48.2 - Chronic atrial fibrillation (7) CAD (coronary artery disease) Qualifiers: Coronary Disease-Associated Artery/Lesion type: [place] artery [place] vs. transplanted heart: [place] heart Associated angina: without angina Qualified Code(s): I25.10 - Atherosclerotic heart disease of [place] coronary artery without angina pectoris (8) Emphysema lung Qualifiers: Emphysema type: panlobular Qualified Code(s): J43.1 - Panlobular emphysema (9) Diabetes mellitus Qualifiers: Diabetes mellitus type: type 2 Diabetes mellitus half-way insulin use: without half-way use Diabetes mellitus complication status: without complication Qualified Code(s): E11.9 - Type 2 diabetes mellitus without complications <Joel Murrieta - Last Filed: 08/15/18 18:43> (5) Atrial fibrillation Qualifiers: Atrial fibrillation type: chronic Qualified Code(s): I48.2 - Chronic atrial fibrillation (6) CAD (coronary artery disease) Qualifiers: Coronary Disease-Associated Artery/Lesion type: [place] artery [place] vs. transplanted heart: [place] heart Associated angina: without angina Qualified Code(s): I25.10 - Atherosclerotic heart disease of [place] coronary artery without angina pectoris (7) Emphysema lung Qualifiers: Emphysema type: panlobular Qualified Code(s): J43.1 - Panlobular emphysema (8) Diabetes mellitus Qualifiers: Diabetes mellitus type: type 2 Diabetes mellitus watermelon inspector insulin use: without watermelon inspector use Diabetes mellitus complication status: without complication Qualified Code(s): E11.9 - Type 2 diabetes mellitus without complications (9) CHF (congestive heart failure) Qualifiers: Heart failure type: combined systolic and diastolic Heart failure chronicity: chronic Qualified Code(s): I50.42 - Chronic combined systolic (congestive) and diastolic (congestive) heart failure
[2018-08-15] MEDS: Melatonin 3 MG TABLET PO PRN (21:02)
[2018-08-16 06:40] LABS: Hematocrit 23.4 % (37.5-50.1); Hemoglobin 7.8 g/dL (12.9-16.9); Mean Corpuscular HGB Conc 33.3 g/dL (31.6-35.5); Mean Corpuscular Hemoglobin 32.4 pg (28.0-33.3); Mean Corpuscular Volume 97.1 fL (83.0-100.0); Mean Platelet Volume 10.1 fL (9.4-12.4); Platelet Count 136 K/mcL (140-400); Red Blood Count 2.41 M/mcL (4.19-5.50); Red Cell Distribution Width 13.2 % (11.5-14.5)
[2018-08-16 07:00] LABS: Albumin 1.7 g/dL (3.5-5.7); Calcium 7.5 mg/dL (8.6-10.3); Phosphorous 3.7 mg/dL (2.7-4.5); Potassium 4.2 mEq/L (3.5-5.1)
[2018-08-16] MEDS: Insulin LISPRO 300 UNITS/3 ML VIAL SQ SCH ×3 (08:11→16:51)
[2018-08-16] MEDS: Budesonide/Formoterol 160/4.5 1 PUFF INH IH SCH ×2 (09:20→21:01)
[2018-08-16] MEDS: Albuterol 2.5 MG/3 ML NEBULIZER IH SCH ×3 (09:20→21:01)
[2018-08-16] MEDS: Furosemide 40 MG TABLET PO SCH ×2 (09:28→16:49)
[2018-08-16] MEDS: predniSONE 20 MG TABLET PO SCH (09:28)
[2018-08-16] MEDS: Apixaban 5 MG TABLET PO SCH ×2 (09:28→22:11)
[2018-08-16] MEDS: Aspirin Enteric Coated 81 MG Tablet PO SCH (09:29)
[2018-08-16] MEDS: Sennosides 8.6 MG TABLET PO SCH (09:29)
[2018-08-16] MEDS: Calcium Acetate 667 MG CAPSULE PO SCH ×3 (09:29→16:49)
--- NOTE | 2018-08-16 10:31 | Nephrology Progress Note ---
Addendum entered and electronically signed by Jack Rubalcava MD 08/16/18 18:07: I examined this patient and discussed the medical decision-making with MATEUS Foley. I agree with the documented findings, disposition and treatment plan as described except to the extent set forth below. Original Note: Date of Encounter: 08/16/18 Time of Encounter: 10:29 - Assessment and Plan (1) Acute kidney injury superimposed on CKD Current Visit: No Status: Acute HD completed yesterday. Nonoliguric MAO secondary to renal biopsy-proven FSGS and associated with nephrotic syndrome with anasarca. Permcath placed 08/10/18. PO Lasix restarted to help with edema. business services clerk consult placed for outpatient dialysis, hoping for [facility]. [place] still approving discharge and HD outpatient. Patient does have tentative chair time at [facility], but awaiting final approval. [place] outpatient [place] [facility] [place]. Continue to follow a renal protective strategy as able including dosing renally cleared medications by creatinine clearance / GFR, and avoiding nephrotoxic agents as able. Strict I's and O's and daily weights are recommended as well. Patient is now considered ESRD. May go from a renal standpoint. (2) Anasarca Current Visit: Yes Status: Acute Continue HD/UF outpatient. (3) Nephrotic syndrome Current Visit: No Status: Chronic Recommend a fluid restriction, Low Na diet. (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 Current Visit: No Status: Chronic Biopsy proven, appears idiopathic with negative malignancy workup (5) Jugular vein thrombosis, right Current Visit: Yes Status: Acute Appears resolved, is not going home on anticoagulation. (6) Panic attacks Current Visit: Yes Status: Acute Resolved. Subjective Principal diagnosis: MAO on CKD Interval history: Seen and examined doing well, no family at bedside. Denies chest pain or shortness of breath. Denies nausea, vomiting or diarrhea. No acute events overnight. States he is ready go home. Objective - Vital Signs Vital signs: Vital Signs Temp Pulse Resp BP Pulse Ox 08/16/18 09:21 20 92 08/16/18 07:56 98.0 F 68 18 163/63 97 08/16/18 04:35 97.9 F 75 16 144/70 95 08/16/18 00:10 97.7 F 68 17 144/75 96 08/15/18 22:38 16 96 08/15/18 19:57 98.0 F 81 15 134/79 96 08/15/18 16:57 98.9 F 66 18 127/86 92 08/15/18 15:45 16 93 08/15/18 14:08 96.9 F L 18 107/69 08/15/18 13:50 93/58 08/15/18 13:35 82/59 08/15/18 13:20 102/62 08/15/18 13:05 110/78 08/15/18 12:50 117/70 08/15/18 12:35 114/69 08/15/18 12:20 123/73 08/15/18 12:05 139/66 08/15/18 11:50 119/69 08/15/18 11:35 122/85 08/15/18 11:20 129/71 08/15/18 11:05 134/67 08/15/18 10:50 133/78 08/15/18 10:35 148/77 Intake and Output 08/15/18 08/16/18 08/16/18 23:59 07:59 15:59 Output Total 100 / 100 Balance -100 / -100 Output: Urine 100 / 100 Other: Weight 73 kg Blood Glucose* 143 75 Patient Weight 08/16/18 23:59 Weight 73 kg - General Appearance General appearance: Present: well-developed, well-nourished EENT: Present: ATNC, hearing intact, vision intact Neck: Present: supple Respiratory: Present: clear Cardiology: Present: edema (+1 pitting edema noted to bilat upper/lower extremities.), normal S1, normal S2 Dialysis Vascular Access: Venous Catheter (DRSG C/d/I) Gastrointestinal: Present: normoactive bowel sounds, no tenderness, no guarding Integumentary: Present: no rash, warm and dry Neurologic: Present: alert and oriented x3 Musculoskeletal: Present: no deformities, no erythema Psychiatric: Present: mood/affect appropriate, cooperative - Lab 08/16/18 05:37 08/16/18 05:37 Most recent lab results Calcium 7.5 mg/dL (8.6-10.3) L 08/16/18 05:37 Phosphorus 3.7 mg/dL (2.7-4.5) 08/16/18 05:37 Magnesium 2.4 mg/dL (1.6-2.6) 08/07/18 06:30 Urine Creatinine 60 mg/dL 07/27/18 23:45 Urine Sodium 53.9 mEq/L 07/27/18 23:45 Urine Total Protein 876 mg/dL (1-14) H 07/27/18 23:45 Consult Discharge Plan - Plan Additional Instructions: Take the Eliquis as prescribed. Follow up with nephrology as scheduled and continue dialysis as an outpatient. You will also need to continue the steroids per nephrology. [facility] Care Provider[facility] - Prescriptions: LORazepam [Ativan] 0.5 mg PO Q4HR PRN 30 Days #24 tablet PRN Reason: Anxiety Apixaban [Eliquis] 2.5 mg PO BID 30 Days #60 tablet Atorvastatin [Lipitor] 20 mg PO HS #30 tablet Calcium Acetate [Phos-LO] 667 mg PO TIDWM 30 Days #90 capsule Furosemide [Lasix] 40 mg PO BIDDIURETIC 30 Days #60 tablet predniSONE [PredniSONE] 60 mg PO DAILY 30 Days #90 tablet
--- NOTE | 2018-08-16 13:47 | Internal Med Progress Note ---
<Soraya Bergeron - Last Filed: 08/16/18 17:34> Hospitalist Progress Note - Encounter Date of Encounter: 08/16/18 Time of Encounter: 17:34 - Subjective Interval History: Patient is stable and has been improved at the [facility] for dialysis, he is still awaiting a chair time. We will continue to do dialysis as an inpatient until he has a confirmed chair time. All the documentation has been sent over to the [facility]. - Exam Vitals: Temp Pulse Resp BP Pulse Ox 97.9 F 61 18 127/74 96 08/16/18 11:48 08/16/18 11:48 08/16/18 11:48 08/16/18 11:48 08/16/18 11:48 Exam: Constitutional - alert and pleasant Comfortable in bed. H - normocephalic EENT - EOMI. Cardio - Irregular. Not tachycardic No murmur heard Respiratory - Lungs with some rhonchi bilaterally anteriorly. Abdomen - soft, nontender to palpation. No mass. Extremities - Edema noted, slightly improved from previous day. Skin - no visible rashes Neuro - a&o x3, follow commands. Good strength and sensation in all extremities. - Assessment and Plan (1) ESRD (end stage renal disease) on dialysis Current Visit: Yes Status: Acute Assessment and Plan: Secondary to FSGS nephrotic syndrome Now on dialysis MWF Continue steroids Treatment per nephro (2) Anasarca Current Visit: Yes Status: Acute Assessment and Plan: Anasarca secondary to FSGS Nephrotic syndrome Continues to slowly improve on dialysis. No acute issue. (3) Nephrotic syndrome Current Visit: No Status: Chronic Assessment and Plan: due to ESRD secondary to FSGS Currently on dialysis. Plan for treatment tomorrow. (4) Acute on chronic diastolic (congestive) heart failure Current Visit: Yes Status: Suspected Assessment and Plan: No longer in exacerbation at this time. (5) Chest pain Current Visit: Yes Status: Acute Assessment and Plan: Cards consulted and eventually ruled it was likely secondary to panic attacks PO Ativan ordered for dialysis with good response (6) Atrial fibrillation Current Visit: No Status: Chronic Assessment and Plan: Rate controlled Paroxysmal Afib On Dig echo EF 45% and indeterminant diastolic dysfunction, device interrogation by cards he was not on chcf AC at home due to anemia and is pending outpt cscope, held full AC due to bleeding from RIJ site and anemia now with new RIJ thrombis on hep gtt with plan to transition to oral agent later this admission prior to discharge -cards has signed off Plan: -On PO Eliquis at this time. Rate is controlled with dig. (7) CAD (coronary artery disease) Current Visit: No Status: Chronic Assessment and Plan: cont home meds No symptoms at this time. (8) Emphysema lung Current Visit: No Status: Chronic Assessment and Plan: stable Continue home symbicort PRN nebs (9) Diabetes mellitus Current Visit: No Status: Chronic Assessment and Plan: Hx of DM without insulin use hold home Glipizide as per nephro recs Plan: SSI prn (10) Jugular vein thrombosis, right Current Visit: Yes Status: Acute Assessment and Plan: Identified on RUE US for edema > LUE on 08/06 Discussed with IR findings and okay to leave line in and use, no OR intervention required AC initiated 08/06 after discussion with pt and his Plan: -Continue PO Eliquis. Tolerating med well. DVT Prophylaxis: Eliquis - Time Spent with Patient Total time spent is greater than 50% in coordination of care (as documented) at patient's floor/unit and/or counseling patient: Internal Medicine: Result - Labs CBC & Chem 7: 08/16/18 05:37 08/16/18 05:37 Labs: Short CBC 08/16/18 Range/Units 05:37 WBC 9.7 (4.3-11.1) K/mcL Hgb 7.8 L (12.9-16.9) g/dL Hct 23.4 L (37.5-50.1) % Plt Count 136 L (140-400) K/mcL BMP 08/16/18 05:37 Sodium 136 Potassium 4.2 Chloride 101 Carbon Dioxide 30 H BUN 43 H Creatinine 3.98 H Glucose 82 Calcium 7.5 L Liver Function 08/16/18 Range/Units 05:37 Albumin 1.7 L (3.5-5.7) g/dL - ABG Interpretation ABG results: PT/INR, D-dimer PT 10.1 Seconds (9.4-12.1) 08/10/18 02:45 Consult Discharge Plan - Plan Additional Instructions: Take the Eliquis as prescribed. Follow up with nephrology as scheduled and continue dialysis as an outpatient. You will also need to continue the steroids per nephrology. [facility]errals: [facility] [Primary Care Provider] - Prescriptions: LORazepam [Ativan] 0.5 mg PO Q4HR PRN 30 Days #24 tablet PRN Reason: Anxiety Apixaban [Eliquis] 2.5 mg PO BID 30 Days #60 tablet Atorvastatin [Lipitor] 20 mg PO HS #30 tablet Calcium Acetate [Phos-LO] 667 mg PO TIDWM 30 Days #90 capsule Furosemide [Lasix] 40 mg PO BIDDIURETIC 30 Days #60 tablet predniSONE [PredniSONE] 60 mg PO DAILY 30 Days #90 tablet <Joel Murrieta - Last Filed: 08/16/18 17:54> Hospitalist Progress Note - Encounter Date of Encounter: 08/16/18 - Exam Vitals: Temp Pulse Resp BP Pulse Ox 98.2 F 75 18 144/54 96 08/16/18 15:54 08/16/18 15:54 08/16/18 15:54 08/16/18 15:54 08/16/18 15:54 - Assessment and Plan (1) Jugular vein thrombosis, right Current Visit: Yes Status: Acute (2) Nephrotic syndrome Current Visit: No Status: Chronic (3) FSGS (focal segmental glomerulosclerosis) with nephrosis Current Visit: No Status: Chronic (4) Anasarca Current Visit: Yes Status: Acute (5) Atrial fibrillation Current Visit: No Status: Chronic (6) CAD (coronary artery disease) Current Visit: No Status: Chronic (7) Emphysema lung Current Visit: No Status: Chronic (8) Diabetes mellitus Current Visit: No Status: Chronic (9) CHF (congestive heart failure) Current Visit: Yes Status: Chronic - Time Spent with Patient Total time spent is greater than 50% in coordination of care (as documented) at patient's floor/unit and/or counseling patient: Internal Medicine: Result - Labs CBC & Chem 7: 08/16/18 05:37 08/16/18 05:37 Labs: Short CBC 08/16/18 Range/Units 05:37 WBC 9.7 (4.3-11.1) K/mcL Hgb 7.8 L (12.9-16.9) g/dL Hct 23.4 L (37.5-50.1) % Plt Count 136 L (140-400) K/mcL BMP 03/05/19 05:37 Sodium 136 Potassium 4.2 Chloride 101 Carbon Dioxide 30 H BUN 43 H Creatinine 3.98 H Glucose 82 Calcium 7.5 L Liver Function 08/16/18 Range/Units 05:37 Albumin 1.7 L (3.5-5.7) g/dL - ABG Interpretation ABG results: PT/INR, D-dimer PT 10.1 Seconds (9.4-12.1) 08/10/18 02:45 - Attending Attestation I examined this patient and my medical decision-making was reviewed with the Resident Physician on 08/16/18. I agree with the documented findings, disposition and treatment plan as described except to the extent set forth below. Mr Dumont is currently admitted for renal failure. He remains moderate to high risk due to potential for worsening clinical status. Mr Dumont is doing OK. No fever or chills. Still working on [facility] and [facility]. Exam alert Comfortable Mucus membranes dry Heart not tachy No wheeze abd soft Edema improving I/P 1. Renal failure - still waiting chair time with [facility] 2. FSGS - 3. Chronic a fib - rate controlled 4. R IJ thrombus - on Eliquis Further diagnoses and plan as above. <Soraya Bergeron R - Last Filed: 08/16/18 17:34> (5) Chest pain Qualifiers: Chest pain type: unspecified Qualified Code(s): R07.9 - Chest pain, unspecified (6) Atrial fibrillation Qualifiers: Atrial fibrillation type: chronic Qualified Code(s): I48.2 - Chronic atrial fibrillation (7) CAD (coronary artery disease) Qualifiers: Coronary Disease-Associated Artery/Lesion type: ken[place]ze artery [place] vs. transplanted heart: kenaitze heart Associated angina: without angina Qualified Code(s): I25.10 - Atherosclerotic heart disease of ken[place]ze coronary artery without angina pectoris (8) Emphysema lung Qualifiers: Emphysema type: panlobular Qualified Code(s): J43.1 - Panlobular emphysema (9) Diabetes mellitus Qualifiers: Diabetes mellitus type: type 2 Diabetes mellitus chcf insulin use: witho ut chcf use Diabetes mellitus complication status: without complication Qualified Code(s): E11.9 - Type 2 diabetes mellitus without complications <Joel Murrieta - Last Filed: 08/16/18 17:54> (5) Atrial fibrillation Qualifiers: Atrial fibrillation type: chronic Qualified Code(s): I48.2 - Chronic atrial fibrillation (6) CAD (coronary artery disease) Qualifiers: Coronary Disease-Associated Artery/Lesion type: ken[place]ze artery [place] vs. 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
[2018-08-16] MEDS: Melatonin 3 MG TABLET PO PRN (23:20)
[2018-08-17 05:04] LABS: Hematocrit 23.6 % (37.5-50.1); Hemoglobin 7.8 g/dL (12.9-16.9); Mean Corpuscular HGB Conc 33.1 g/dL (31.6-35.5); Mean Corpuscular Volume 96.7 fL (83.0-100.0); Mean Platelet Volume 10.1 fL (9.4-12.4); Platelet Count 144 K/mcL (140-400); Red Blood Count 2.44 M/mcL (4.19-5.50); Red Cell Distribution Width 13.1 % (11.5-14.5)
[2018-08-17 05:07] LABS: Calcium 7.6 mg/dL (8.6-10.3); Potassium 4.6 mEq/L (3.5-5.1)
[2018-08-17] MEDS ORDERED: *HR* Heparin 10,000 UNIT/10 ML VIAL IV PRN (07:47)
[2018-08-17] MEDS ORDERED: 0.9 % Sodium Chloride 250 ML IVC PRN (07:47)
[2018-08-17] MEDS ORDERED: 0.9 % Sodium Chloride 1,000 ML PRIME SCH (08:00)
[2018-08-17] MEDS: Insulin LISPRO 300 UNITS/3 ML VIAL SQ SCH ×3 (08:03→16:18)
[2018-08-17] MEDS: Aspirin Enteric Coated 81 MG Tablet PO SCH (08:04)
[2018-08-17] MEDS: *HR* LORazepam 0.5 MG TABLET PO PRN ×2 (08:04→09:30)
[2018-08-17] MEDS: Furosemide 40 MG TABLET PO SCH ×2 (08:04→16:17)
[2018-08-17] MEDS: Sennosides 8.6 MG TABLET PO SCH (08:04)
[2018-08-17] MEDS: *HR* Digoxin 0.125 MG TABLET PO SCH (08:04)
[2018-08-17] MEDS: predniSONE 20 MG TABLET PO SCH (08:04)
[2018-08-17] MEDS: Calcium Acetate 667 MG CAPSULE PO SCH ×3 (08:04→16:16)
[2018-08-17] MEDS: Apixaban 5 MG TABLET PO SCH ×2 (08:04→21:06)
--- NOTE | 2018-08-17 09:52 | Nephrology Progress Note ---
Addendum entered and electronically signed by Jack Rubalcava MD 08/17/18 22:29: I examined this patient and discussed the medical decision-making with MATEUS Foley. I agree with the documented findings, disposition and treatment plan as described except to the extent set forth below. Patient seen on dialysis. He feels well and is anticipating going home. Original Note: Date of Encounter: 08/17/18 Time of Encounter: 09:50 - Assessment and Plan (1) Acute kidney injury superimposed on CKD Current Visit: No Status: Acute HD in progress for today. Nonoliguric MAO secondary to renal biopsy-proven FSGS and associated with nephrotic syndrome with anasarca. Permcath placed 08/10/18. PO Lasix restarted to help with edema. banking services advisor consult placed for outpatient dialysis, hoping for [facility]. [place] still approving discharge and HD outpatient. Patient does have tent ative chair time at [facility], but awaiting final approval. Needs outpatient referral for Dr. Franks at [facility] [place] for vein mapping and fistula placement. Continue to follow a renal protective strategy as able including dosing renally cleared medications by creatinine clearance / GFR, and avoiding nephrotoxic agents as able. Strict I's and O's and daily weights are recommended as well. Patient is now considered ESRD. May go from a renal standpoint. (2) Anasarca Current Visit: Yes Status: Acute Continue HD/UF outpatient. (3) Nephrotic syndrome Current Visit: No Status: Chronic Recommend a fluid restriction, Low Na diet. (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 Current Visit: No Status: Chronic Biopsy proven, appears idiopathic with negative malignancy workup (5) Jugular vein thrombosis, right Current Visit: Yes Status: Acute Appears resolved, is not going home on anticoagulation. (6) Panic attacks Current Visit: Yes Status: Acute Resolved. Subjective Principal diagnosis: MAO on CKD Interval history: Seen and examined during HD, doing well. No family at bedside. Denies chest pain or shortness of breath. Denies nausea, vomiting or diarrhea. No acute events overnight. Objective - Vital Signs Vital signs: Vital Signs Temp Pulse Resp BP Pulse Ox 08/17/18 08:30 193/67 08/17/18 08:15 97.5 F L 18 164/90 08/17/18 07:34 97.9 F 79 17 156/89 95 08/17/18 03:55 98.2 F 66 18 148/91 92 08/16/18 23:11 97.8 F 80 16 153/75 96 08/16/18 21:01 16 96 08/16/18 19:00 97.6 F 85 16 127/78 96 08/16/18 15:54 98.2 F 75 18 144/54 96 08/16/18 15:16 16 96 08/16/18 11:48 97.9 F 61 18 127/74 96 Intake and Output 08/16/18 08/17/18 08/17/18 23:59 07:59 15:59 Intake Total 0 / 0 300 / 300 960 / 960 Output Total 0 / 0 0 / 0 Balance 0 / 0 300 / 300 960 / 960 Intake: Oral 0 / 0 300 / 300 360 / 360 Intake, Rinseback and Flushes 600 / 600 Output: Urine 0 / 0 0 / 0 Other: Meal Breakfast Percent of Meal Consumed 95% # Voids 1 Weight 72.5 kg Blood Glucose* 141 111 Hemodialysis Net Fluid Removed 257 (mL) - General Appearance General appearance: Present: well-developed, well-nourished EENT: Present: ATNC, hearing intact, vision intact Neck: Present: supple Respiratory: Present: clear Cardiology: Present: edema (+1 pitting edema noted to bilat upper/lower extremities.), normal S1, normal S2 Dialysis Vascular Access: Venous Catheter (DRSG C/D/I) Gastrointestinal: Present: normoactive bowel sounds, no tenderness, no guarding, no masses Integumentary: Present: no rash, warm and dry Neurologic: Present: alert and oriented x3 Musculoskeletal: Present: no deformities, no erythema Psychiatric: Present: mood/affect appropriate, cooperative - Lab 08/17/18 03:56 08/17/18 03:56 Most recent lab results Calcium 7.6 mg/dL (8.6-10.3) L 08/17/18 03:56 Phosphorus 3.7 mg/dL (2.7-4.5) 08/16/18 05:37 Magnesium 2.4 mg/dL (1.6-2.6) 08/07/18 06:30 Urine Creatinine 60 mg/dL 07/27/18 23:45 Urine Sodium 53.9 mEq/L 07/27/18 23:45 Urine Total Protein 876 mg/dL (1-14) H 07/27/18 23:45 Consult Discharge Plan - Plan Additional Instructions: Take the Eliquis as prescribed. Follow up with nephrology as scheduled and continue dialysis as an outpatient. You will also need to continue the steroids per nephrology. [facility]errals: [facility]Primary Care Provider[facility] - Prescriptions: LORazepam [Ativan] 0.5 mg PO Q4HR PRN 30 Days #24 tablet PRN Reason: Anxiety Apixaban [Eliquis] 2.5 mg PO BID 30 Days #60 tablet Atorvastatin [Lipitor] 20 mg PO HS #30 tablet Calcium Acetate [Phos-LO] 667 mg PO TIDWM 30 Days #90 capsule Furosemide [Lasix] 40 mg PO BIDDIURETIC 30 Days #60 tablet predniSONE [PredniSONE] 60 mg PO DAILY 30 Days #90 tablet
[2018-08-17] MEDS ORDERED: 0.9 % Sodium Chloride 2,000 ML ONE (10:28)
[2018-08-17] MEDS: Budesonide/Formoterol 160/4.5 1 PUFF INH IH SCH ×2 (11:32→22:19)
[2018-08-17] MEDS: Albuterol 2.5 MG/3 ML NEBULIZER IH SCH ×3 (11:32→22:19)
--- NOTE | 2018-08-17 14:02 | Internal Med Progress Note ---
<Tiffani Dixon - Last Filed: 08/17/18 14:08> Hospitalist Progress Note - Encounter Date of Encounter: 08/17/18 - Exam Vitals: Temp Pulse Resp BP Pulse Ox 97.2 F L 79 18 114/59 95 08/17/18 12:02 08/17/18 07:34 08/17/18 12:02 08/17/18 12:02 08/17/18 07:34 - Assessment and Plan (1) Atrial fibrillation Current Visit: No Status: Chronic (2) CAD (coronary artery disease) Current Visit: No Status: Chronic (3) Anasarca Current Visit: Yes Status: Acute (4) Nephrotic syndrome Current Visit: No Status: Chronic (5) Emphysema lung Current Visit: No Status: Chronic (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 Current Visit: No Status: Chronic (7) Diabetes mellitus Current Visit: No Status: Chronic (8) CHF (congestive heart failure) Current Visit: Yes Status: Chronic (9) Jugular vein thrombosis, right Current Visit: Yes Status: Acute - Time Spent with Patient Total time spent is greater than 50% in coordination of care (as documented) at patient's floor/unit and/or counseling patient: Internal Medicine: Result - Labs CBC & Chem 7: 08/17/18 03:56 08/17/18 03:56 Labs: Short CBC 08/17/18 Range/Units 03:56 WBC 10.8 (4.3-11.1) K/mcL Hgb 7.8 L (12.9-16.9) g/dL Hct 23.6 L (37.5-50.1) % Plt Count 144 (140-400) K/mcL BMP 08/17/18 03:56 Sodium 136 Potassium 4.6 Chloride 102 Carbon Dioxide 27 BUN 64 H Creatinine 4.95 H Glucose 122 H Calcium 7.6 L - ABG Interpretation ABG results: PT/INR, D-dimer PT 10.1 Seconds (9.4-12.1) 08/10/18 02:45 Consult Discharge Plan - Plan Additional Instructions: Take the Eliquis as prescribed. Follow up with nephrology as scheduled and continue dialysis as an outpatient. You will also need to continue the steroids per nephrology. [facility] - Prescriptions: LORazepam [Ativan] 0.5 mg PO Q4HR PRN 30 Days #24 tablet PRN Reason: Anxiety Apixaban [Eliquis] 2.5 mg PO BID 30 Days #60 tablet Atorvastatin [Lipitor] 20 mg PO HS #30 tablet Calcium Acetate [Phos-LO] 667 mg PO TIDWM 30 Days #90 capsule Furosemide [Lasix] 40 mg PO BIDDIURETIC 30 Days #60 tablet predniSONE [PredniSONE] 60 mg PO DAILY 30 Days #90 tablet - Attending Attestation I examined this patient and my medical decision-making was reviewed with the Resident Physician Dr Bergeron. I agree with the documented findings, disposition and treatment plan as described except to the extent set forth below. Mr Dumont is currently admitted for renal failure. Mr Dumont is in HD and has no complaints. no cp, pressure, palpitations or anxiety. anasarca conts to improve. no sob gen- alert, awake,appears stated age cv- reg rate and rhythm, normal s1,s2, no murmurs appreciated, 1+ pitting bl le edema to knees lungs- ctabl, no wheezing, rhonchi or crackles abd- soft, non tender, non distended, + bs neuro- AAOx3 1. Renal failure - still waiting chair time with [facility], HD as per nephro 2. Anasarca 2/2 low protein 2/2 FSGS - nephro following 3. Chronic a fib - rate controlled, cont current regimen 4. R IJ thrombus - on Eliquis Further diagnoses and plan as noted by resident <Soraya Bergeron R - Last Filed: 08/17/18 15:24> Hospitalist Progress Note - Encounter Date of Encounter: 08/17/18 Time of Encounter: 08:10 - Subjective Interval History: Awaiting dialysis chair time at [facility]. Will have dialysis today. No complaints. Wants to go home. Nephrology getting process for fistula started and have consulted vascular surgery for patient as an outpatient. - Exam Vitals: Temp Pulse Resp BP Pulse Ox 97.2 F L 79 18 114/59 95 08/17/18 12:02 08/17/18 07:34 08/17/18 12:02 08/17/18 12:02 08/17/18 07:34 Exam: Constitutional - alert and pleasant Comfortable in bed. H - normocephalic EENT - EOMI. Cardio - Irregular. Not tachycardic No murmur heard Respiratory - Lungs CTA bilaterally Abdomen - soft, nontender to palpation. No mass. Extremities - Edema noted, stable at this time. Skin - no visible rashes Neuro - a&o x3, follow commands. Good strength and sensation in all extremities. - Assessment and Plan (1) ESRD (end stage renal disease) on dialysis Current Visit: Yes Status: Acute Assessment and Plan: Secondary to FSGS nephrotic syndrome Now on dialysis MWF Continue steroids Treatment per nephro (2) Anasarca Current Visit: Yes Status: Acute Assessment and Plan: Anasarca secondary to FSGS Nephrotic syndrome Continues to slowly improve on dialysis. No acute issue. (3) Nephrotic syndrome Current Visit: No Status: Chronic Assessment and Plan: Due to ESRD secondary to FSGS Currently on dialysis. Plan for treatment tomorrow. (4) Acute on chronic diastolic (congestive) heart failure Current Visit: Yes Status: Suspected Assessment and Plan: No longer in exacerbation at this time. (5) Chest pain Current Visit: Yes Status: Resolved Assessment and Plan: Cards consulted and eventually ruled it was likely secondary to panic attacks PO Ativan ordered for dialysis with good response (6) Atrial fibrillation Current Visit: No Status: Chronic Assessment and Plan: Rate controlled Paroxysmal Afib On Dig echo EF 45% and indeterminant diastolic dysfunction, device interrogation by cards he was not on chcf AC at home due to anemia and is pending outpt cscope, held full AC due to bleeding from RIJ site and anemia now with new RIJ thrombis on hep gtt with plan to transition to oral agent later this admission prior to discharge -cards has signed off Plan: -On PO Eliquis at this time. Rate is controlled with dig. (7) CAD (coronary artery disease) Current Visit: No Status: Chronic Assessment and Plan: cont home meds No symptoms at this time. (8) Emphysema lung Current Visit: No Status: Chronic Assessment and Plan: stable Continue home symbicort PRN nebs (9) Diabetes mellitus Current Visit: No Status: Chronic Assessment and Plan: Hx of DM without insulin use hold home Glipizide as per nephro recs Plan: SSI prn (10) Jugular vein thrombosis, right Current Visit: Yes Status: Acute Assessment and Plan: Identified on RUE US for edema > LUE on 08/06 Discussed with IR findings and okay to leave line in and use, no OR intervention required AC initiated 08/06 after discussion with pt and his Plan: -Continue PO Eliquis. Tolerating med well. DVT Prophylaxis: Eliquis - Time Spent with Patient Total time spent is greater than 50% in coordination of care (as documented) at patient's floor/unit and/or counseling patient: Internal Medicine: Result - Labs CBC & Chem 7: 08/17/18 03:56 08/17/18 03:56 Labs: Short CBC 08/17/18 Range/Units 03:56 WBC 10.8 (4.3-11.1) K/mcL Hgb 7.8 L (12.9-16.9) g/dL Hct 23.6 L (37.5-50.1) % Plt Count 144 (140-400) K/mcL BMP 08/17/18 03:56 Sodium 136 Potassium 4.6 Chloride 102 Carbon Dioxide 27 BUN 64 H Creatinine 4.95 H Glucose 122 H Calcium 7.6 L - ABG Interpretation ABG results: PT/INR, D-dimer PT 10.1 Seconds (9.4-12.1) 08/10/18 02:45 <Tiffani Dixon - Last Filed: 08/17/18 14:08> (1) Atrial fibrillation Qualifiers: Atrial fibrillation type: chronic Qualified Code(s): I48.2 - Chronic atrial fibrillation (2) CAD (coronary artery disease) Qualifiers: Coronary Disease-Associated Artery/Lesion type: [place] artery [place] vs. transplanted heart: [place] heart Associated angina: without angina Qualified Code(s): I25.10 - Atherosclerotic heart disease of [place] coronary artery without angina pectoris (5) Emphysema lung Qualifiers: Emphysema type: panlobular Qualified Code(s): J43.1 - Panlobular emphysema (7) Diabetes mellitus Qualifiers: Diabetes mellitus type: type 2 Diabetes mellitus chcf insulin use: without sterilization specialist use Diabetes mellitus complication status: without complication Qualified Code(s): E11.9 - Type 2 diabetes mellitus without complications (8) CHF (congestive heart failure) Qualifiers: Heart failure type: combined systolic and diastolic Heart failure chronicity: chronic Qualified Code(s): I50.42 - Chronic combined systolic (congestive) and diastolic (congestive) heart failure <Soraya Bergeron R - Last Filed: 08/17/18 15:24> (5) Chest pain Qualifiers: Chest pain type: unspecified Qualified Code(s): R07.9 - Chest pain, unspecified (6) Atrial fibrillation Qualifiers: Atrial fibrillation type: chronic Qualified Code(s): I48.2 - Chronic atrial fibrillation (7) CAD (coronary artery disease) Qualifiers: Coronary Disease-Associated Artery/Lesion type: [place] artery [place] vs. transplanted heart: [place] heart Associated angina: without angina Qualified Code(s): I25.10 - Atherosclerotic heart disease of [place] coronary artery without angina pectoris (8) Emphysema lung Qualifiers: Emphysema type: panlobular Qualified Code(s): J43.1 - Panlobular emphysema (9) Diabetes mellitus Qualifiers: Diabetes mellitus type: type 2 Diabetes mellitus sterilization specialist insulin use: without chcf use Diabetes mellitus complication status: without complication Qualified Code(s): E11.9 - Type 2 diabetes mellitus without complications
[2018-08-17] MEDS: Melatonin 3 MG TABLET PO PRN (23:06)
[2018-08-18 04:58] LABS: Hematocrit 23.5 % (37.5-50.1); Hemoglobin 7.7 g/dL (12.9-16.9); Mean Corpuscular HGB Conc 32.8 g/dL (31.6-35.5); Mean Corpuscular Hemoglobin 31.8 pg (28.0-33.3); Mean Corpuscular Volume 97.1 fL (83.0-100.0); Mean Platelet Volume 9.5 fL (9.4-12.4); Platelet Count 141 K/mcL (140-400); Red Blood Count 2.42 M/mcL (4.19-5.50); Red Cell Distribution Width 13.2 % (11.5-14.5)
[2018-08-18 05:18] LABS: Albumin 1.8 g/dL (3.5-5.7); Calcium 7.6 mg/dL (8.6-10.3); Phosphorous 3.4 mg/dL (2.7-4.5); Potassium 4.4 mEq/L (3.5-5.1)
[2018-08-18] MEDS: Insulin LISPRO 300 UNITS/3 ML VIAL SQ SCH ×2 (07:31→11:36)
[2018-08-18] MEDS: Apixaban 5 MG TABLET PO SCH (07:35)
[2018-08-18] MEDS: Calcium Acetate 667 MG CAPSULE PO SCH ×2 (07:35→11:40)
[2018-08-18] MEDS: Aspirin Enteric Coated 81 MG Tablet PO SCH (07:35)
[2018-08-18] MEDS: Sennosides 8.6 MG TABLET PO SCH (07:35)
[2018-08-18] MEDS: Furosemide 40 MG TABLET PO SCH (07:36)
[2018-08-18] MEDS ORDERED: predniSONE 20 MG TABLET PO SCH (09:00)
--- NOTE | 2018-08-18 10:01 | Nephrology Progress Note ---
Date of Encounter: 08/18/18 Time of Encounter: 09:59 - Assessment and Plan (1) Acute kidney injury superimposed on CKD Current Visit: No Status: Acute HD completed yesterday, plan for HD tomorrow. Nonoliguric MAO secondary to renal biopsy-proven FSGS and associated with nephrotic syndrome with anasarca. Permcath placed 08/10/18. PO Lasix restarted to help with edema. business services sales representative consult placed for outpatient dialysis, hoping for [facility]. MD still approving discharge and HD outpatient. Patient does have tentative chair time at [facility], but awaiting final approval. Needs outpatient referral for Dr. Franks at [facility] for vein mapping and fistula placement. Continue to follow a renal protective strategy as able including dosing renally cleared medications by creatinine clearance / GFR, and avoiding nephrotoxic a gents as able. Strict I's and O's and daily weights are recommended as well. Patient is now considered ESRD. May go from a renal standpoint. (2) Anasarca Current Visit: Yes Status: Acute Continue HD/UF outpatient. (3) Nephrotic syndrome Current Visit: No Status: Chronic Recommend a fluid restriction, Low Na diet. (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 Current Visit: No Status: Chronic Biopsy proven, appears idiopathic with negative malignancy workup (5) Jugular vein thrombosis, right Current Visit: Yes Status: Acute Is on Eliquis. (6) Panic attacks Current Visit: Yes Status: Acute Resolved. Subjective Principal diagnosis: MOA on CKD Interval history: Seen and examined do well. Denies nausea, vomiting, diarrhea. Denies chest pa in or shortness of breath. No acute events overnight. Patient states he is just waiting on approval to be able to go home. Objective - Vital Signs Vital signs: Vital Signs Temp Pulse Resp BP Pulse Ox 08/18/18 07:09 97.9 F 75 16 184/73 94 08/18/18 03:58 98.1 F 58 17 158/97 95 08/17/18 23:48 98.0 F 65 18 143/87 97 08/17/18 22:24 14 98 08/17/18 19:28 98.2 F 83 16 140/82 96 08/17/18 16:23 98.1 F 80 17 141/58 96 08/17/18 15:21 18 95 03/06/19 12:02 97.2 F L 18 114/59 08/17/18 11:45 108/46 08/17/18 11:30 111/74 08/17/18 11:15 113/59 08/17/18 11:00 115/67 08/17/18 10:45 110/71 08/17/18 10:30 107/74 08/17/18 10:15 133/50 08/17/18 10:00 136/60 Intake and Output 08/17/18 08/18/18 08/18/18 23:59 07:59 15:59 Intake Total 240 / 240 Balance 240 / 240 Intake: Oral 240 / 240 Other: Meal Breakfast Percent of Meal Consumed 100% Weight 73.5 kg Blood Glucose* 166 67 - General Appearance General appearance: Present: well-developed, well-nourished EENT: Present: ATNC, hearing intact, vision intact Neck: Present: supple Respiratory: Present: clear Cardiology: Present: edema (+1 pitting edema noted to bilat upper/lower extremities.), normal S1, normal S2 Dialysis Vascular Access: Venous Catheter (DRSG C/D/I) Gastrointestinal: Present: normoactive bowel sounds, no tenderness, no guarding Integumentary: Present: no rash, warm and dry Neurologic: Present: alert and oriented x3 Musculoskeletal: Present: no deformities, no erythema Psychiatric: Present: mood/affect appropriate, cooperative - Lab 08/18/18 04:36 08/18/18 04:36 Most recent lab results Calcium 7.6 mg/dL (8.6-10.3) L 08/18/18 04:36 Phosphorus 3.4 mg/dL (2.7-4.5) 08/18/18 04:36 Magnesium 2.4 mg/dL (1.6-2.6) 08/07/18 06:30 Urine Creatinine 60 mg/dL 07/27/18 23:45 Urine Sodium 53.9 mEq/L 07/27/18 23:45 Urine Total Protein 876 mg/dL (1-14) H 07/27/18 23:45 Consult Discharge Plan - Plan Additional Instructions: Take the Eliquis as prescribed. Follow up with nephrology as scheduled and continue dialysis as an outpatient. You will also need to continue the steroids per nephrology. [facility] Care Provider[facility] - Prescriptions: LORazepam [Ativan] 0.5 mg PO Q4HR PRN 30 Days #24 tablet PRN Reason: Anxiety Apixaban [Eliquis] 2.5 mg PO BID 30 Days #60 tablet Atorvastatin [Lipitor] 20 mg PO HS #30 tablet Calcium Acetate [Phos-LO] 667 mg PO TIDWM 30 Days #90 capsule Furosemide [Lasix] 40 mg PO BIDDIURETIC 30 Days #60 tablet predniSONE [PredniSONE] 60 mg PO DAILY 30 Days #90 tablet
[2018-08-18] MEDS: Budesonide/Formoterol 160/4.5 1 PUFF INH IH SCH (11:06)
[2018-08-18] MEDS: Albuterol 2.5 MG/3 ML NEBULIZER IH SCH ×2 (11:06→15:20)
[2018-08-18 11:28] VITALS: BP 115/60
--- NOTE | 2018-08-18 11:31 | Discharge Summary ---
<Tiffani Dixon - Last Filed: 08/18/18 12:48> Orders not resulted at time of discharge: Pending orders 08/19/18 04:00 BMP [Basic Metabolic Panel] AM 0400 Complete Blood Count w/o Diff [HEME] AM 0400 08/20/18 04:00 BMP [Basic Metabolic Panel] AM 0400 Complete Blood Count w/o Diff [HEME] AM 0400 08/21/18 04:00 BMP [Basic Metabolic Panel] AM 0400 Complete Blood Count w/o Diff [HEME] AM 0400 08/22/18 04:00 BMP [Basic Metabolic Panel] AM 0400 Complete Blood Count w/o Diff [HEME] AM 0400 Date of Encounter: 08/18/18 - Discharge Diagnosis (1) Atrial fibrillation Status: Chronic Qualifiers: Atrial fibrillation type: chronic Qualified Code(s): I48.2 - Chronic atrial fibrillation (2) CAD (coronary artery disease) Status: Chronic Qualifiers: Coronary Disease-Associated Artery/Lesion type: [place] artery [place] vs. transplanted heart: [place] heart Associated angina: without angina Qualified Code(s): I25.10 - Atherosclerotic heart disease of [place] coronary artery without angina pectoris (3) Anasarca Status: Acute (4) Nephrotic syndrome Status: Chronic (5) Emphysema lung Status: Chronic Qualifiers: Emphysema type: panlobular Qualified Code(s): J43.1 - Panlobular emphysema (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 Status: Chronic (7) Diabetes mellitus Status: Chronic Qualifiers: Diabetes mellitus type: type 2 Diabetes mellitus terminal supervisor insulin use: without terminal supervisor use Diabetes mellitus complication status: without complication Qualified Code(s): E11.9 - Type 2 diabetes mellitus without complications (8) CHF (congestive heart failure) Status: Chronic Qualifiers: Heart failure type: combined systolic and diastolic Heart failure chronicity: chronic Qualified Code(s): I50.42 - Chronic combined systolic (congestive) and diastolic (congestive) heart failure (9) Jugular vein thrombosis, right Status: Acute Hospital course: Mr. Dumont is a 73 year old male - Time Spent with Patient Total time spent providing and/or coordinating discharge services: - Discharge Medications Prescriptions: New Apixaban [Eliquis] 2.5 mg PO BID 30 Days #60 tablet Atorvastatin [Lipitor] 20 mg PO HS #30 tablet Calcium Acetate [Phos-LO] 667 mg PO TIDWM 30 Days #90 capsule Furosemide [Lasix] 40 mg PO BIDDIURETIC 30 Days #60 tablet predniSONE [PredniSONE] 60 mg PO DAILY 30 Days #90 tablet LORazepam [Ativan] 0.5 mg PO Q4HR PRN 30 Days #24 tablet PRN Reason: Anxiety Continue metOLazone [Zaroxolyn] 5 mg PO DAILY Ferrous Sulfate [Iron] 325 mg PO DAILY Docusate [Colace] 200 mg PO DAILY Colchicine [Colcrys] 0.6 mg PO DAILY PRN PRN Reason: GOUT FLARE Carvedilol [Coreg] 25 mg PO BID Allopurinol [Zyloprim 100 MG] 100 mg PO DAILY Bumetanide [Bumex] 1 mg PO TID Albuterol Neb [Proventil Neb] 2.5 mg IH Q6HR PRN PRN Reason: Shortness Of Breath Digoxin [Lanoxin] 0.125 mg PO QOD glipiZIDE [Glucotrol] 2.5 mg PO DAILY Spironolactone [Aldactone] 50 mg PO DAILY Budesonide/Formoterol 160/4.5 [Symbicort 160/4.5] 1 puff IH BIDR Albuterol Sulfate [Proair Hfa] 2 puff IN Q6H PRN PRN Reason: Shortness Of Breath Aspirin 162 mg PO DAILY Ascorbic Acid [Vitamin C] 500 mg PO DAILY Psyllium Husk/Aspartame [Metamucil Powder] 10 gm PO DAILY PRN PRN Reason: Constipation Discontinued Pravastatin Sodium [Pravachol] 80 mg PO HS Doxycycline 100 mg PO BID Home Medications: Albuterol Neb [Proventil Neb] 2.5 mg IH Q6HR PRN 05/27/18 [History] Allopurinol [Zyloprim 100 MG] 100 mg PO DAILY 05/27/18 [History] Bumetanide [Bumex] 1 mg PO TID 05/27/18 [History] Carvedilol [Coreg] 25 mg PO BID 05/27/18 [History] Colchicine [Colcrys] 0.6 mg PO DAILY PRN 05/27/18 [History] Docusate [Colace] 200 mg PO DAILY 05/27/18 [History] Ferrous Sulfate [Iron] 325 mg PO DAILY 05/27/18 [History] metOLazone [Zaroxolyn] 5 mg PO DAILY 05/27/18 [History] Digoxin [Lanoxin] 0.125 mg PO QOD 06/17/18 [History] Albuterol Sulfate [Proair Hfa] 2 puff IN Q6H PRN 07/28/18 [History] Ascorbic Acid [Vitamin C] 500 mg PO DAILY 07/28/18 [History] Aspirin 162 mg PO DAILY 07/28/18 [History] Budesonide/Formoterol 160/4.5 [Symbicort 160/4.5] 1 puff IH BIDR 07/28/18 [History] Psyllium Husk/Aspartame [Metamucil Powder] 10 gm PO DAILY PRN 07/28/18 [History] Spironolactone [Aldactone] 50 mg PO DAILY 07/28/18 [History] glipiZIDE [Glucotrol] 2.5 mg PO DAILY 07/28/18 [History] Apixaban [Eliquis] 2.5 mg PO BID 30 Days #60 tablet 08/12/18 [Rx] Atorvastatin [Lipitor] 20 mg PO HS #30 tablet 08/12/18 [Rx] Calcium Acetate [Phos-LO] 667 mg PO TIDWM 30 Days #90 capsule 08/12/18 [Rx] Furosemide [Lasix] 40 mg PO BIDDIURETIC 30 Days #60 tablet 08/12/18 [Rx] LORazepam [Ativan] 0.5 mg PO Q4HR PRN 30 Days #24 tablet 08/12/18 [Rx] predniSONE [PredniSONE] 60 mg PO DAILY 30 Days #90 tablet 08/12/18 [Rx] Allergies/Adverse Reactions: Allergy/AdvReac Type Severity Reaction Status Date / Time meperidine [From Demerol] Allergy Hives Verified 05/25/18 12:28 Date of admission: 07/31/18 16:02 [facility] care physician: [facility] Consults: 07/27/18 13:46 Consult to Nephrology [CONS] Stat Consulting Provider: Kidney Debbie/REYNOLD/AUREA/ROSY Reason for Consult: Elevated creatinine of 3.95 Time Notified: 13:00 Call Completed: Yes 07/27/18 16:33 Consult to Cardiac Rehabilitation-Phase1 [CONS] Routine Comment: Reason for Consult: heart failure Call Completed: Yes Consult to Nurse Navigator [CONS] Routine Comment: 07/28/18 09:18 Consult to Nurse Navigator [CONS] Routine Comment: ESRD 08/01/18 10:07 Consult to Interventional Radiology [CONS] Routine Consulting Provider: Radiology Interventional Cols Reason for Consult: Please place temp line. No answer when dialed. Time Notified: 10:07 Call Completed: No 08/01/18 10:28 Consult to Invasive Line Access Team [CONS] Routine Reason for Consult: poor vascular access, CKD IV, pitting edema +4 bilat upper extremeties Line Type: EPIV 08/01/18 14:00 Consult to Dialysis [CONS] ONCE 08/02/18 08:45 Consult to Dialysis [CONS] ONCE 08/02/18 09:59 Consult to Cardiology [CONS] Routine Comment: Consulting Provider: Cardiology Debbie Reason for Consult: new onset afib, not tolerating dialysis Call Completed: Yes 08/04/18 07:30 Consult to Dialysis [CONS] ONCE 08/04/18 10:54 Consult to Occupational Therapy [CONS] Routine Comment: Evaluate, develop and implement POC Reason for Consult: home health eval Does patient have active BEDREST order?: No Is patient medically & hemodynamically stable?: Yes Consult to Physical Therapy [CONS] Routine Comment: Evaluate, develop and implement POC Reason for Consult: Home health eval Does patient have active BEDREST order?: No Is patient medically & hemodynamically stable?: Yes 08/05/18 09:45 Consult to Dialysis [CONS] ONCE 08/08/18 07:15 Consult to Dialysis [CONS] ONCE 08/08/18 10:42 Consult to Cruise Staff Member [CONS] Routine Reason for SW Consult: Please set up for outpatient HD. Thanks 08/10/18 07:00 Consult to Dialysis [CONS] QMWF 08/10/18 10:59 Consult to Interventional Radiology [CONS] Routine Consulting Provider: Radiology Interventional Cols Reason for Consult: Permcath placement please. Thanks No answer when tried to call, will try again later. Call Completed: No 08/11/18 08:00 Consult to Dialysis [CONS] ONCE 08/12/18 06:30 Consult to Dialysis [CONS] ONCE 08/12/18 07:00 Consult to Dialysis [CONS] QMWF 08/15/18 07:45 Consult to Dialysis [CONS] ONCE 08/17/18 08:00 Consult to Dialysis [CONS] ONCE - Constitutional Vitals: Temp Pulse Resp BP Pulse Ox 98.1 F 53 16 115/60 95 08/18/18 11:27 08/18/18 11:27 08/18/18 11:27 08/18/18 11:27 08/18/18 11:27 - Patient Status Disposition: Home Health Service Condition: Good Overall status at discharge: patient is back to baseline - Discharge Instructions Follow Up With: Kahlil Franks MD [Non-Partnered Physician] - (for vein mapping and fistula placement) Jack Calvillo DO [Partnered Physician] - (outpt nephrology follow up) [facility] [Primary Care Provider] - Additional Instructions: Take the Eliquis as prescribed. Follow up with nephrology as scheduled and continue dialysis as an outpatient. You will also need to continue the steroids per nephrology. - Diet and Activity Activity: as per physical therapy Diet: other (renal diet) - Attending Attestation I examined this patient and my medical decision-making was reviewed with the Resident Physician Dr Bergeron. I agree with the documented findings, disposition and treatment plan as described except to the extent set forth below. Mr Dumont is currently admitted for renal failure. Mr Tim isawake with at bedside. tearful about having to sit and wait so long to be able to leave. no sob, cp, anxiety. anasarca continues to improve gen- alert, awake,appears stated age cv- reg rate and rhythm, normal s1,s2, no murmurs appreciated, 1+ pitting bl le edema to knees, no pitting edema bl UE lungs- ctabl, no wheezing, rhonchi or crackles neuro- AAOx3 1. Renal failure - [facility], HD as per nephro, outpt nephro fu, outpt vasc surg eval for mapping and fistula referral placed 2. Anasarca 2/2 low protein 2/2 FSGS - nephro followed, improved with HD 3. Chronic a fib - rate controlled, cont current regimen upon dc 4. R IJ thrombus - on Eliquis Further diagnoses and plan as noted by resident time spent on discharge 40 min he remains medically stable for discharge barrier to discharge is insurance approval for outpt HD <Soraya Bergeron R - Last Filed: 08/18/18 13:21> - NOTES TO OUTPATIENT PROVIDER Notes to Outpatient Provider: Pt will need dialysis as an outpatient, current schedule is MWF. He will also need to continue steroid therapy and nephrology follow up once discharged. Pt will also need to continue Eliquis for his right jugular vein thrombus. He has a vascuar surgery visit schedule for fistula consultation. Orders not resulted at time of discharge: Pending orders 08/19/18 04:00 BMP [Basic Metabolic Panel] AM 0400 Complete Blood Count w/o Diff [HEME] AM 0400 08/20/18 04:00 BMP [Basic Metabolic Panel] AM 0400 Complete Blood Count w/o Diff [HEME] AM 0400 08/21/18 04:00 BMP [Basic Metabolic Panel] AM 0400 Complete Blood Count w/o Diff [HEME] AM 0400 08/22/18 04:00 BMP [Basic Metabolic Panel] AM 0400 Complete Blood Count w/o Diff [HEME] AM 0400 Date of Encounter: 08/18/18 Time of Encounter: 11:00 - Discharge Diagnosis (1) ESRD (end stage renal disease) on dialysis Priority: Primary Status: Acute (2) Anasarca Priority: Secondary Status: Acute (3) Nephrotic syndrome Priority: Secondary Status: Chronic (4) Acute on chronic diastolic (congestive) heart failure Priority: Secondary Status: Suspected (5) Chest pain Priority: Secondary Status: Resolved Qualifiers: Chest pain type: unspecified Qualified Code(s): R07.9 - Chest pain, unspecified (6) Atrial fibrillation Priority: Secondary Status: Chronic Qualifiers: Atrial fibrillation type: chronic Qualified Code(s): I48.2 - Chronic atrial fibrillation (7) CAD (coronary artery disease) Priority: Secondary Status: Chronic Qualifiers: Coronary Disease-Associated Artery/Lesion type: [place] artery [place] vs. transplanted heart: [place] heart Associated angina: without angina Qualified Code(s): I25.10 - Atherosclerotic heart disease of [place] coronary artery without angina pectoris (8) Emphysema lung Priority: Secondary Status: Chronic Qualifiers: Emphysema type: panlobular Qualified Code(s): J43.1 - Panlobular emphysema (9) Diabetes mellitus Priority: Secondary Status: Chronic Qualifiers: Diabetes mellitus type: type 2 Diabetes mellitus mcc insulin use: without terminal supervisor use Diabetes mellitus complication status: without complication Qualified Code(s): E11.9 - Type 2 diabetes mellitus without complications (10) Jugular vein thrombosis, right Priority: Secondary Status: Acute Hospital course: Mr. Dumont is a 73 year old male with PMHx of COPD, CHF, and FSGS nephrotic syndrome who presented to the ED with a 5lb weight gain and increased LE edema over 5 days. He had had nephrotic flares similar to this in the past which responded well to bumex and steroids. He was initially diuresed with IV bumex which helped with his edema but worsened his kidney function. The bumex was stopped but his kidneys did not rebound with the steroids and gentle hydration. The decision was made to start temporary dialysis at that time. Temporary dialysis catheter was placed on 08/01 without complications. The first several trials of dialysis were ended prematurely as the patient was experiencing chest pain and afib with RVR. Cardiology was consulted at that time and determined the chest pain was not likely cardiac in nature and more likely panic attacks. The patient was started on PO Ativan prior to and during his treatments which helped him tolerate dialysis. On 08/06 it was noted the patient had increased right UE edema compared to the left and doppler was obtained, showing a right jugular vein partially occlusive thrombus. The patient was started on Lovenox for anticoagulation, which was eventually switched to PO Eliquis on 08/12. The patient received a permanent dialysis catheter on 08/10 as his kidneys continued to be unresponsive to medical management, and arrangement for outpatient dialysis at the [facility] began at this time. The patient continues to have some anasarca but has vastly improved since admission and is returning to baseline. He will be DC'd on Eliquis for the right JV thrombus and continue dialysis as an outpatient. Mr. Dumont was cleared to be discharged home from a medical standpoint on August 12 but his discharge was complicated by delays in dialysis chair time at the [facility]. He will be discharged today, 08/18/18 in good condition. - Time Spent with Patient Total time spent providing and/or coordinating discharge services: Date of admission: 07/31/18 16:02 Primary care physician: [facility] Consults: 07/27/18 13:46 Consult to Nephrology [CONS] Stat Consulting Provider: Kidney Debbie/REYNOLD/AUREA/ROSY Reason for Consult: Elevated creatinine of 3.95 Time Notified: 13:00 Call Completed: Yes 07/27/18 16:33 Consult to Cardiac Rehabilitation-Phase1 [CONS] Routine Comment: Reason for Consult: heart failure Call Completed: Yes Consult to Nurse Navigator [CONS] Routine Comment: 07/28/18 09:18 Consult to Nurse Navigator [CONS] Routine Comment: ESRD 08/01/18 10:07 Consult to Interventional Radiology [CONS] Routine Consulting Provider: Radiology Interventional Cols Reason for Consult: Please place temp line. No answer when dialed. Time Notified: 10:07 Call Completed: No 08/01/18 10:28 Consult to Invasive Line Access Team [CONS] Routine Reason for Consult: poor vascular access, CKD IV, pitting edema +4 bilat upper extremeties Line Type: EPIV 08/01/18 14:00 Consult to Dialysis [CONS] ONCE 08/02/18 08:45 Consult to Dialysis [CONS] ONCE 08/02/18 09:59 Consult to Cardiology [CONS] Routine Comment: Consulting Provider: Cardiology Debbie Reason for Consult: new onset afib, not tolerating dialysis Call Completed: Yes 08/04/18 07:30 Consult to Dialysis [CONS] ONCE 08/04/18 10:54 Consult to Occupational Therapy [CONS] Routine Comment: Evaluate, develop and implement POC Reason for Consult: home health eval Does patient have active BEDREST order?: No Is patient medically & hemodynamically stable?: Yes Consult to Physical Therapy [CONS] Routine Comment: Evaluate, develop and implement POC Reason for Consult: Home health eval Does patient have active BEDREST order?: No Is patient medically & hemodynamically stable?: Yes 08/05/18 09:45 Consult to Dialysis [CONS] ONCE 08/08/18 07:15 Consult to Dialysis [CONS] ONCE 08/08/18 10:42 Consult to Cruise Staff Member [CONS] Routine Reason for SW Consult: Please set up for outpatient HD. Thanks 08/10/18 07:00 Consult to Dialysis [CONS] QMWF 08/10/18 10:59 Consult to Interventional Radiology [CONS] Routine Consulting Provider: Radiology Interventional Cols Reason for Consult: Permcath placement please. Thanks No answer when tried to call, will try again later. Call Completed: No 08/11/18 08:00 Consult to Dialysis [CONS] ONCE 08/12/18 06:30 Consult to Dialysis [CONS] ONCE 08/12/18 07:00 Consult to Dialysis [CONS] QMWF 08/15/18 07:45 Consult to Dialysis [CONS] ONCE 08/17/18 08:00 Consult to Dialysis [CONS] ONCE Discharging clinician: Soraya Bergeron - Constitutional Vitals: Temp Pulse Resp BP Pulse Ox 98.1 F 53 16 115/60 95 08/18/18 11:27 08/18/18 11:27 08/18/18 11:27 08/18/18 11:27 08/18/18 11:27 General appearance: Present: A&O X 3, no acute distress Exam: Constitutional - alert and pleasant Comfortable in bed. H - normocephalic EENT - EOMI. Cardio - Irregular. Not tachycardic No murmur heard Respiratory - Lungs CTA bilaterally Abdomen - soft, nontender to palpation. No mass. Extremities - Edema noted, stable at this time. Skin - no visible rashes Neuro - a&o x3, follow commands. Good strength and sensation in all extremities. - Patient Status Functional capacity at discharge: independent ambulation Overall status at discharge: patient is back to baseline - Diet and Activity Activity: as per physical therapy Diet: other
== END 2018-08-18 16:31 | disposition home health service (06) | DRG 286 ==
LOC: 3ANU 10:43 → EMEROOARM 10:43 → SUATTDRO 16:30 → 3ANU 16:30 → SUATTDRO 07-31 16:02 → 2ANU 08-01 16:53 → 2NNU 08-02 10:16 → 2ANU 08-12 13:04
PROVIDERS: ADMIT Internal Medicine; ATTEND Internal Medicine
PROC: IRPERMA (2018-08-10 12:00)

== ENCOUNTER 2019-02-23 21:06 | Inpatient (IN) ==
--- NOTE | 2019-02-23 21:24 | Emergency Department Note ---
Disposition Clinical Impression: Shortness of breath, Elevated troponin Fluid overload Qualifiers: Hypervolemia type: unspecified Qualified Code(s): E87.70 - Fluid overload, unspecified Disposition: Admitted As Inpatient Condition: Fair Time of Disposition: 23:28 General Adult HPI - General Stated complaint: [place] Time Seen by Provider: 02/23/19 21:09 Source: patient, EMS Mode of arrival: EMS Limitations: no limitations Nursing Notes Reviewed: Yes Vital Signs Reviewed: Yes - History of Present Illness HPI Narrative: Patient is a 73-year-old male that presents emergency department in transfer from the [facility] urgent care. Patient was seen there for shortness of breath and with the potential going to be admitted however the patient requires dialysis and they do not have the ability to dialyze the patient at the [facility]. Patient states that he has been feeling short of breath over the past couple of months but has gotten worse over the past couple of days. Patient states that he has not having any chest pain. Patient states that he has a history of COPD but does not wear any oxygen at home. Patient states that he did receive breathing treatments at the [facility] urgent care and states that he is feeling somewhat better at this time. Patient states that he dialyzes on Wednesday and Wednesday and his last dialysis session was yesterday. Patient states that his return to vendor is Dr. Ebony kee at [facility]. Pain Scale: 0 - Related Data Home Medications Medication Instructions Recorded Confirmed Carvedilol [Coreg] 25 mg PO BID 05/27/18 07/28/18 Colchicine [Colcrys] 0.6 mg PO DAILY PRN 05/27/18 07/28/18 Docusate [Colace] 200 mg PO DAILY 05/27/18 07/28/18 Digoxin [Lanoxin] 0.125 mg PO QOD 06/17/18 07/28/18 Albuterol Sulfate [Proair Hfa] 2 puff IN Q6H PRN 07/28/18 07/28/18 Budesonide/Formoterol 160/4.5 1 puff IH BIDR 07/28/18 07/28/18 [Symbicort 160/4.5] GlipiZIDE [Glucotrol] 2.5 mg PO DAILY 07/28/18 07/28/18 Allopurinol [Zyloprim 100 MG] 100 mg PO DAILY 02/23/19 02/23/19 Apixaban [Eliquis] 2.5 mg PO BID 02/23/19 02/23/19 Calcium Acetate [Phos-LO] 1,334 mg PO TIDWM 02/23/19 02/23/19 Calcium Acetate [Phos-LO] 667 mg PO DAILY 02/23/19 02/23/19 Folic Acid/Vit B Complex and C 800 mcg PO DAILY 02/23/19 02/23/19 [Dialyvite 800 Chewable Wafer] Furosemide [Lasix] 40 mg PO AD 02/23/19 02/23/19 Ipratropium/Albuterol Neb [Duoneb] 3 ml IH Q6HR PRN 02/23/19 02/23/19 Melatonin 5 mg PO HS 02/23/19 02/23/19 Ondansetron ODT [Zofran ODT] 4 mg PO Q6-8H PRN 02/23/19 02/23/19 Polyethylene Glycol 3350 [MiraLAX] 17 gm PO DAILY PRN 02/23/19 02/23/19 Previous Rx's Medication Instructions Recorded Atorvastatin [Lipitor] 20 mg PO HS #30 tablet 08/12/18 Allergies Allergy/AdvReac Type Severity Reaction Status Date / Time meperidine [From Demerol] Allergy Hives Verified 02/23/19 21:53 All systems ED: reviewed and negative except as stated. Constitutional: Denies: fever Cardiovascular: Denies: chest pain Respiratory: Reports: dyspnea Gastrointestinal: Denies: abdominal pain, nausea, vomiting Neurological: Denies: weakness, numbness, paresthesias Past Medical History - Past Medical History Medical history: Reports: atrial fibrillation, cardiomyopathy, CHF, coronary artery disease, hypertension, renal disease Surgical history: Reports: coronary bypass (CABG), herniorrhaphy, pacemaker/AICD Psychiatric history: Reports: no psych history - Social History Smoking Status: Never smoker Smokeless Tobacco Status: No Alcohol use: Reports: none Drug use: Reports: none Physical Exam - General Limitations: no limitations General appearance: alert, in no apparent distress - Head Head exam: atraumatic, normocephalic - Eye Eye exam: Present: normal appearance, EOMI - Neck Neck exam: Present: normal inspection, full ROM, trachea midline - Respiratory Respiratory exam: Present: normal lung sounds bilaterally, wheezes (scattered throuhout). Absent: respiratory distress - Abdominal Exam Abdominal exam: Present: soft, Non-Tender, normal bowel sounds - Extremities Exam Extremities exam: Present: other (Patient has 2+ pitting edema bilateral lower extremities. Palpable thrill in the patient's right forearm dialysis graft.) - Neurological Exam Neurological exam: Present: alert, oriented X3 - Psychiatric Psychiatric exam: Present: normal affect, normal mood - Skin Skin exam: Present: warm, dry, intact Course Vital Signs Temperature 98.2 F 02/23/19 21:15 Pulse Rate 120 02/23/19 21:15 Respiratory Rate 18 02/23/19 21:15 Blood Pressure 143/100 02/23/19 21:15 O2 Sat by Pulse Oximetry 94 02/23/19 21:15 Temperature 98.2 F 02/23/19 21:15 Pulse Rate 125 02/23/19 22:47 Respiratory Rate 18 02/23/19 22:47 Blood Pressure 147/93 02/23/19 22:47 O2 Sat by Pulse Oximetry 94 02/23/19 22:47 Oxygen Delivery Oxygen Delivery Room Air Medical Decision Making - MDM Narrative Medical decision making narrative: Due the patient was anything to the emergency department from the [facility] with having laboratory testing done at 8 PM which is approximately one hour prior to the patient's arrival we will not repeat the labs that were obtained. However we will obtain a troponin and EKG. Patient's x-ray will be uploaded into Pac[facility] will be reviewed by myself and the attending. Patient's EKG does not show any acute ischemic changes. The patient's troponin is 0.09. Patient does have a chronically elevated troponin. The patient was given 40 of Lasix. The patient does make urine and urinates at least 3 times a day. Called and spoke with the admitting hospitalist Dr. Sahu and he has accepted the patient to their service. Patient be admitted to the hospital this time for further evaluation and management. Consult to nephrology was placed in [facility]. - Medical Records Medical records reviewed: Yes I reviewed the patient's medical records. - Lab Data Lab results reviewed: Yes I reviewed the patient's lab results. Lab Results 02/23/19 Range/Units 21:54 Troponin I 0.09 H* (< 0.04) ng/mL - Radiology Data Radiology results reviewed: Yes I reviewed the patient's radiology results. [facility] As reviewed by myself and the attending Dr. Chaudhary. - EKG Data EKG #1 EKG attestation: Yes I reviewed and interpreted this EKG. EKG results narrative: EKG shows age fibrillation at a rate of 124 bpm, QRS duration 79, QTC of 467. There is no evidence of STEMI on EKG. This was compared to a prior EKG on 08/02/18 which also showed atrial fibrillation.
[2019-02-23] MEDS ORDERED: Furosemide 40 MG/4 ML VIAL IVP ONE (23:20)
[2019-02-23] MEDS ORDERED: Ipratropium/Albuterol Neb 3 ML IH STA (23:42)
[2019-02-24] MEDS ORDERED: Ipratropium/Albuterol Neb 3 ML IH PRN (00:01)
[2019-02-24] MEDS ORDERED: Ondansetron ODT 4 MG TAB.RAPDIS PO PRN (00:01)
--- NOTE | 2019-02-24 00:05 | Emergency Department Note ---
Disposition Clinical Impression: Shortness of breath, Elevated troponin Fluid overload Qualifiers: Hypervolemia type: unspecified Qualified Code(s): E87.70 - Fluid overload, unspecified Disposition: Admitted As Inpatient Condition: Fair Time of Disposition: 23:28 General Adult HPI - General Chief complaint: ED Shortness of Breath/Dyspnea Stated complaint: Bar[place] Time Seen by Provider: 02/23/19 21:09 Source: patient, EMS Mode of arrival: EMS Limitations: no limitations Nursing Notes Reviewed: Yes Vital Signs Reviewed: Yes - History of Present Illness Pain Scale: 0 - Related Data Home Medications Medication Instructions Recorded Confirmed Carvedilol [Coreg] 12.5 mg PO BID 05/27/18 02/23/19 Colchicine [Colcrys] 0.6 mg PO DAILY PRN 05/27/18 02/23/19 Docusate [Colace] 200 mg PO DAILY 05/27/18 02/23/19 Digoxin [Lanoxin] 0.0625 mg PO DAILY 06/17/18 02/23/19 Albuterol Sulfate [Proair Hfa] 2 puff IH Q6H PRN 07/28/18 02/23/19 Budesonide/Formoterol 160/4.5 1 puff IH BIDR 07/28/18 02/23/19 [Symbicort 160/4.5] GlipiZIDE [Glucotrol] 2.5 mg PO DAILY 07/28/18 02/23/19 Allopurinol [Zyloprim 100 MG] 100 mg PO DAILY 02/23/19 02/23/19 Apixaban [Eliquis] 2.5 mg PO BID 02/23/19 02/23/19 Calcium Acetate [Phos-LO] 1,334 mg PO TIDWM 02/23/19 02/23/19 Calcium Acetate [Phos-LO] 667 mg PO DAILY 02/23/19 02/23/19 Folic Acid/Vit B Complex and C 800 mcg PO DAILY 02/23/19 02/23/19 [Dialyvite 800 Chewable Wafer] Furosemide [Lasix] 40 mg PO AD 02/23/19 02/23/19 Ipratropium/Albuterol Neb [Duoneb] 3 ml IH Q6HR PRN 02/23/19 02/23/19 Melatonin 5 mg PO HS 02/23/19 02/23/19 Ondansetron ODT [Zofran ODT] 4 mg PO Q6-8H PRN 02/23/19 02/23/19 Polyethylene Glycol 3350 [MiraLAX] 17 gm PO DAILY PRN 02/23/19 02/23/19 Previous Rx's Medication Instructions Recorded Atorvastatin [Lipitor] 20 mg PO HS #30 tablet 08/12/18 Allergies Allergy/AdvReac Type Severity Reaction Status Date / Time meperidine [From Demerol] Allergy Hives Verified 02/23/19 21:53 Constitutional: Denies: fever Cardiovascular: Denies: chest pain Respiratory: Reports: dyspnea Gastrointestinal: Denies: abdominal pain, nausea, vomiting Neurological: Denies: weakness, numbness, paresthesias Past Medical History - Past Medical History Medical history: Reports: atrial fibrillation, cardiomyopathy, CHF, coronary artery disease, hypertension, renal disease Surgical history: Reports: coronary bypass (CABG), herniorrhaphy, pacemaker/AICD Psychiatric history: Reports: no psych history - Social History Smoking Status: Never smoker Smokeless Tobacco Status: No Alcohol use: Reports: none Drug use: Reports: none Physical Exam - General Limitations: no limitations General appearance: alert, in no apparent distress Course Vital Signs Temperature 98.2 F 02/23/19 21:15 Pulse Rate 120 02/23/19 21:15 Respiratory Rate 18 02/23/19 21:15 Blood Pressure 143/100 02/23/19 21:15 O2 Sat by Pulse Oximetry 94 02/23/19 21:15 Temperature 98.2 F 02/23/19 21:15 Pulse Rate 125 02/23/19 22:47 Respiratory Rate 18 02/23/19 22:47 Blood Pressure 147/93 02/23/19 22:47 O2 Sat by Pulse Oximetry 94 02/23/19 22:47 Oxygen Delivery Oxygen Delivery Room Air Medical Decision Making - Medical Records Medical records reviewed: Yes I reviewed the patient's medical records. Medical records from the [place] were reviewed. - Lab Data Lab results reviewed: Yes I reviewed the patient's lab results. Lab Results 02/23/19 Range/Units 21:54 Troponin I 0.09 H* (< 0.04) ng/mL - Radiology Data Radiology results reviewed: Yes I reviewed the patient's radiology results. Chest x-ray from the [place] was downloaded PACs and the film was reviewed. There are some small bilateral pleural effusions and some increased vascular markings to the upper lobe consistent with CHF. - EKG Data EKG #1 EKG attestation: Yes I reviewed and interpreted this EKG. EKG results narrative: EKG shows atrial fibrillation with RVR with ventricular rate of 124. Possible old anterior infarction. No significant ST segment elevation or depression. Critical Care Time Critical Care Time: Yes Total Critical Care Time: 35 Attestation: Critical care performed: Time is exclusive of separately billable procedures. Time includes: direct patient care, patient reassessment, coordination of patient care, interpretation of data (laboratory data, radiology data, and respiratory data), review of patient's medical records, medical consultation and documentation of patient care. Procedures included in critical care time: Procedures excluded from critical care time: Attestation Statement - Attestation Attestation: I, Obed Chaudhary MD, personally evaluated this patient and discussed their management with the resident physician. I reviewed the resident's note and agree with the documented findings, medical decision making, and plan of care. I reviewed the residents documentation and agree with the residents assessment and plan of care. I have personally had face to face time with the patient. I personally supervised and was present for the leal/critical portions of the following procedures completed by the resident: EKG interpretation. 73-year-old male transferred here from the [place] urgent care for complaint of increasing shortness of breath which has been increasing over the past 2-3 weeks. Shortness of breath is worse with exertion and also with lying flat. He also complains of increased swelling of his feet and ankles, especially over the past one or 2 days. Patient has end-stage renal disease and is on hemodialysis Wednesday was seen Wednesday. His last dialysis was Wednesday. He denies any chest pain. No increased cough or fever. On examination patient is a well-developed well-nourished elderly male in no acute distress. He is alert and oriented 3. There is no cyanosis or diaphoresis. Breath sounds are equal bilaterally with scattered bilateral expiratory wheezes. Heart irregularly irregular. Patient is not tachycardic at time of my exam. Abdomen soft and nontender with normal bowel sounds. 2+ pitting edema of the lower extremities bilaterally. EKG shows atrial fibrillation with RVR with ventricular rate of 124. Possible old anterior infarction. No significant ST segment elevation or depression. Labs reviewed. Troponin 0.09. EKG shows atrial fibrillation with RVR with rate of 124. No significant ST segment elevation or depression. Patient was given Lasix 40 mg IV. Also DuoNeb treatment for his wheezing. The hospitalist, Dr. Sahu, was consulted and accepted admission of the patient.
[2019-02-24] MEDS ORDERED: Dextrose Gel 15 GM/37.5 ML TUBE PO PRN ×2 (00:07)
[2019-02-24] MEDS ORDERED: D5% in Water 1,000 ML IVC PRN (00:07)
[2019-02-24] MEDS ORDERED: *HR* Dextrose 50 % in Water (Syg) 50 ML SYRINGE IVP PRN (00:07)
[2019-02-24] MEDS ORDERED: *HR* Metoprolol 5 MG/5 ML VIAL IVP ONE ×2 (01:25→04:36)
--- NOTE | 2019-02-24 01:31 | Internal Med History&Physical ---
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 He denied any chest pain. He said he was given breathing treatments there helping him improve and was to be admitted however because they lack dialysis was also concern for fluid overload he was transferred here for further care. He has remained adherent to his Wednesday, Wednesday and Wednesday schedule. Of note, he reports that he typically feels better right after his dialysis sessions but it quickly recurs the day after. He says if he lays supine he starts to cough and feels as if he will choke. He still makes some urine. He had a chest x-ray done there and uploaded to our system which shows evidence of some pleural effusion and central vascular congestion. He is reported to have had a proBNP >100K at the [facility]. A troponin was done here noted to be 0.09 in the context of no chest pain, EKG showing a.fib with signs of a prior inferior wall infarct and chronic troponin elevations. He is admitted for further care. Vitals: Reviewed General: Elderly man sitting up in bed in NAD Skin: Warm and dry. HEENT: Moist mucous membranes. No conjunctivae pallor. Neck: No lymphadenopathy. No JVD. No carotid bruits. No palpable thyroid. Chest: Reduced thoracic expansion. Diminished breath sounds in both bases. Heart: Normal S1 & S2; tachycardic. Abdomen: Non-distended, soft and non-tender to palpation. No peritoneal reaction. Extremities: No clubbing, cyanosis. 2-3+ lower extremity pitting edema. Right forearm AV access with palpable thrill. No calf tenderness. Normal distal pulses. Neurological: Awake, alert and oriented to person, place and time. No focal deficits. Psych: Affect appropriate. Assessment/Plan 1. Acute respiratory failure: Suspected to be caused by pulmonary edema/vascular congestion compounded by underlying COPD. He improved with 1 b reathing treatment and will get an IV dose of furosemide tonight as he still makes some urine although very little. Will continue therapy as needed based on his symptoms. 2. ESRD: Nephrology consult placed and will be scheduled for dialysis. Check routine labs to assess homeostasis. 3. Atrial fibrillation: On apixaban. Currently in rapid ventricular response. Will give a dose of metoprolol 5mg IVP for rate control and assess response. 4. Ischemic cardiomyopathy: On carvedilol, digoxin, atorvastatin and diuretic. S/p AICD. 5. Diabetes: Place on insulin sliding scale for now. 6. COPD: Nebulizer therapy as needed. Continue daily LABA/ICS. Past Med Surg Social Fam HX - Past Medical History Medical history: atrial fibrillation, cardiomyopathy, CHF, coronary artery disease, hypertension, renal disease Additional medical history: gout Psychiatric history: no psych history - Past Surgical History Surgical History: coronary bypass (CABG), herniorrhaphy, pacemaker/AICD Additional surgical history: bowel resection - Social History Smoking Status: Never smoker Smokeless Tobacco Status: No Alcohol use: none Drug use: none - Family History Father Hx Family Cardiac Disorders: Yes ([place]) Grandfather Hx Family Cardiac Disorders: Yes Internal Medicine - H&P: Meds Carvedilol [Coreg] 12.5 mg PO BID 05/27/18 [History] Colchicine [Colcrys] 0.6 mg PO DAILY PRN 05/27/18 [History] Docusate [Colace] 200 mg PO DAILY 05/27/18 [History] Digoxin [Lanoxin] 0.0625 mg PO DAILY 06/17/18 [History] Albuterol Sulfate [Proair Hfa] 2 puff IH Q6H PRN 07/28/18 [History] Budesonide/Formoterol 160/4.5 [Symbicort 160/4.5] 1 puff IH BIDR 07/28/18 [History] GlipiZIDE [Glucotrol] 2.5 mg PO DAILY 07/28/18 [History] Atorvastatin [Lipitor] 20 mg PO HS #30 tablet 08/12/18 [Rx] Allopurinol [Zyloprim 100 MG] 100 mg PO DAILY 02/23/19 [History] Apixaban [Eliquis] 2.5 mg PO BID 02/23/19 [History] Calcium Acetate [Phos-LO] 1,334 mg PO TIDWM 02/23/19 [History] Calcium Acetate [Phos-LO] 667 mg PO DAILY 02/23/19 [History] Folic Acid/Vit B Complex and C [Dialyvite 800 Chewable Wafer] 800 mcg PO DAILY 02/23/19 [History] Furosemide [Lasix] 40 mg PO AD 02/23/19 [History] Ipratropium/Albuterol Neb [Duoneb] 3 ml IH Q6HR PRN 02/23/19 [History] Melatonin 5 mg PO HS 02/23/19 [History] Ondansetron ODT [Zofran ODT] 4 mg PO Q6-8H PRN 02/23/19 [History] Polyethylene Glycol 3350 [MiraLAX] 17 gm PO DAILY PRN 02/23/19 [History] Allergy/AdvReac Type Severity Reaction Status Date / Time meperidine [From Demerol] Allergy Hives Verified 02/23/19 21:53 All Systems PM: A 10-system review of systems was performed and is negative for pertinent findings except as documented above in the HPI. - Constitutional Vitals: Temp Pulse Resp BP Pulse Ox 97.7 F 136 18 138/85 95 02/24/19 01:04 02/24/19 01:04 02/24/19 01:04 02/24/19 01:04 02/24/19 01:04 Exam: . Internal Med - H&P Results - Labs Labs: Cardiac Enzymes 02/23/19 Range/Units 21:54 Troponin I 0.09 H* (< 0.04) ng/mL - Time Spent With Patient Total time spent is greater than 50% in coordination of care (as documented) at patient's floor/unit and/or counseling patient:
[2019-02-24 04:03] LABS: Hematocrit 35.7 % (37.5-50.1); Hemoglobin 11.7 g/dL (12.9-16.9); Immature Granulocytes % 0.5 % (0-4); Lymphocytes # 0.3 K/mcL (0.6-4.6); Lymphocytes % 5.1 %; Mean Corpuscular HGB Conc 32.8 g/dL (31.6-35.5); Mean Corpuscular Hemoglobin 32.2 pg (28.0-33.3); Mean Corpuscular Volume 98.3 fL (83.0-100.0); Mean Platelet Volume 10.5 fL (9.4-12.4); Monocytes # 0.1 K/mcL (0.0-1.3); Monocytes % 1.1 %; Neutrophils # 5.1 K/mcL (1.6-8.9); Platelet Count 195 K/mcL (140-400); Red Blood Count 3.63 M/mcL (4.19-5.50); Red Cell Distribution Width 17.2 % (11.5-14.5); Segmented Neutrophils % 93.3 %; White Blood Count 5.5 K/mcL (4.3-11.1)
[2019-02-24 04:10] LABS: INR 1.1; Prothrombin Time 12.3 Seconds (9.4-12.1)
[2019-02-24 04:11] LABS: VBG HCO3 25 mEq/L (21-27); VBG PCO2 32 mmHg (41-51); VBG PO2 114 mmHg (25-50)
[2019-02-24 04:12] LABS: Activated Partial Thrombo Time 32.1 Seconds (26.0-36.0)
[2019-02-24 04:16] LABS: Calcium 7.8 mg/dL (8.6-10.3)
[2019-02-24] MEDS ORDERED: Ipratropium/Albuterol Neb 3 ML IH SCH (05:00)
[2019-02-24] MEDS: Budesonide/Formoterol 160/4.5 1 PUFF INH IH SCH ×2 (07:47→22:29)
[2019-02-24] MEDS ORDERED: Furosemide 40 MG TABLET PO SCH ×2 (08:00→09:00)
[2019-02-24] MEDS: Apixaban 5 MG TABLET PO SCH ×2 (08:10→21:29)
[2019-02-24] MEDS: Calcium Acetate 667 MG CAPSULE PO SCH ×3 (08:10→17:42)
[2019-02-24] MEDS: Renal Vitamin 1 CAP CAPSULE PO SCH (08:10)
[2019-02-24] MEDS: *HR* Digoxin 0.125 MG TABLET PO SCH (08:11)
[2019-02-24] MEDS: Insulin LISPRO 300 UNITS/3 ML VIAL SQ SCH ×4 (08:11→21:32)
[2019-02-24] MEDS ORDERED: Vitamin B Complex/Vit C/Vit E 1 EACH TABLET PO SCH (09:00)
[2019-02-24] MEDS ORDERED: 0.9 % Sodium Chloride 250 ML IVC PRN (09:45)
[2019-02-24] MEDS ORDERED: 0.9 % Sodium Chloride 1,000 ML PRIME SCH (09:45)
--- NOTE | 2019-02-24 09:45 | Nephrology Consult Note ---
Date of Encounter: 02/24/19 Time of Encounter: 09:45 Assessment and Plan (1) ESRD (end stage renal disease) on dialysis Current Visit: Yes Status: Acute HD MWF. Renal vitamins. Renal dose medications. Renal diet. Additional dialysis and ultrafiltration as needed. The patient was seen on dialysis. We will evaluate daily for the need for dialysis or ultrafiltration. (2) Hyponatremia Current Visit: Yes Status: Acute This should improve with dialysis. (3) Shortness of breath Current Visit: Yes Status: Acute Patient reports that his breathing is improving. (4) Atrial fibrillation Current Visit: Yes Status: Chronic Qualifiers: Atrial fibrillation type: chronic Qualified Code(s): I48.2 - Chronic atrial fibrillation (5) Diabetes mellitus Current Visit: Yes Status: Chronic We will defer to the primary team. Qualifiers: Diabetes mellitus type: type 2 Diabetes mellitus site acquisition specialist insulin use: without usp use Diabetes mellitus complication status: without complication Qualified Code(s): E11.9 - Type 2 diabetes mellitus without complications History of Present Illness - Reason for Consult Consult date: 02/24/19 end stage renal disease - Chief Complaint esrd - History of Present Illness Tim is a 73-year-old gentleman with a history of end-stage renal disease who dialyzes on a Wednesday schedule. He presents with difficulty breathing. Patient was seen while he was getting dialysis. He states his breathing is better. He denies chest pain, nausea, or vomiting. His review of system otherwise appears to be stable. Past Med Surg Social Fam HX - Past Medical History Medical history: atrial fibrillation, cardiomyopathy, CHF, coronary artery dis ease, hypertension, renal disease Additional medical history: gout Psychiatric history: no psych history - Past Surgical History Surgical History: coronary bypass (CABG), herniorrhaphy, pacemaker/AICD Additional surgical history: bowel resection - Social History Smoking Status: Never smoker Smokeless Tobacco Status: No Alcohol use: none Drug use: none - Family History Father Hx Family Cardiac Disorders: Yes ([place]) Grandfather Hx Family Cardiac Disorders: Yes Medications and Allergies Carvedilol [Coreg] 12.5 mg PO BID 05/27/18 [History] Colchicine [Colcrys] 0.6 mg PO DAILY PRN 05/27/18 [History] Docusate [Colace] 200 mg PO DAILY 05/27/18 [History] Digoxin [Lanoxin] 0.0625 mg PO DAILY 06/17/18 [History] Albuterol Sulfate [Proair Hfa] 2 puff IH Q6H PRN 07/28/18 [History] Budesonide/Formoterol 160/4.5 [Symbicort 160/4.5] 1 puff IH BIDR 07/28/18 [History] GlipiZIDE [Glucotrol] 2.5 mg PO DAILY 07/28/18 [History] Atorvastatin [Lipitor] 20 mg PO HS #30 tablet 08/12/18 [Rx] Allopurinol [Zyloprim 100 MG] 100 mg PO DAILY 02/23/19 [History] Apixaban [Eliquis] 2.5 mg PO BID 02/23/19 [History] Calcium Acetate [Phos-LO] 1,334 mg PO TIDWM 02/23/19 [History] Calcium Acetate [Phos-LO] 667 mg PO DAILY 02/23/19 [History] Folic Acid/Vit B Complex and C [Dialyvite 800 Chewable Wafer] 800 mcg PO DAILY 02/23/19 [History] Furosemide [Lasix] 40 mg PO AD 02/23/19 [History] Ipratropium/Albuterol Neb [Duoneb] 3 ml IH Q6HR PRN 02/23/19 [History] Melatonin 5 mg PO HS 02/23/19 [History] Ondansetron ODT [Zofran ODT] 4 mg PO Q6-8H PRN 02/23/19 [History] Polyethylene Glycol 3350 [MiraLAX] 17 gm PO DAILY PRN 02/23/19 [History] Allergy/AdvReac Type Severity Reaction Status Date / Time meperidine [From Demerol] Allergy Hives Verified 02/23/19 21:53 Review of Systems All Systems: reviewed and no additional remarkable complaints except as stated (Documented in the history of present illness) Exam - Vital Signs Vital signs: Initial Vital Signs Temp Pulse Resp BP Pulse Ox 98.2 F 120 18 143/100 94 02/23/19 21:15 02/23/19 21:15 02/23/19 21:15 02/23/19 21:15 02/23/19 21:15 Vital Signs - Last 8 Hours Temp Pulse Resp BP Pulse Ox 02/24/19 07:50 97.2 F L 120 18 134/73 96 02/24/19 07:47 18 96 02/24/19 03:24 97.7 F 115 17 132/80 93 Intake and Output 02/23/19 02/24/19 02/24/19 23:59 07:59 15:59 Other: Weight 73.074 kg 76.2 kg Blood Glucose* 208 Patient Weight 02/24/19 23:59 Weight 76.2 kg - General Appearance General appearance: well-developed, well-nourished, frail EENT: ATNC Neck: supple Respiratory: course breath sounds Cardiology: edema, regular rate Additional Comments: Tachycardic - Dialysis Access Dialysis Vascular Access: Arteriovenous Fistula Gastrointestinal: no tenderness Integumentary: warm and dry Neurologic: alert and oriented x3 Psychiatric: mood/affect appropriate Results - Lab Results 02/24/19 03:43 02/24/19 03:43 Most recent lab results 02/24/19 02/24/19 03:43 03:43 Calcium 7.8 L Phosphorus 4.1 Magnesium 3.0 H Consult Discharge Plan - Plan [facility]errals: [facility] [Primary Care Provider] -
--- NOTE | 2019-02-24 11:21 | Electrocardiograph Report ---
[place] [id number] Test Date: 2019-02-23 Pat Name: Clement Dumont Department: EXAM19 Room: 2A14 Gender: M Regional Guide: : 1945 Requested By: Brady Alvarez Order Number: [id number] Reading MD: Ortiz Card Measurements Intervals Elmer Rate: 124 P: AL: QRS: 132 QRSD: 79 T: 69 QT: 325 QTc: 467 Interpretive Statements Atrial fibrillation with rapid ventricular response Possible anterior infarct, old Nonspecific ST-T abnormalities Electronically Signed On 02-24-2019 11:19:34 EDT by Ortiz Card
--- NOTE | 2019-02-24 12:29 | Internal Med Progress Note ---
Hospitalist Progress Note - Encounter Date of Encounter: 02/24/19 Time of Encounter: 12:22 - Subjective Interval History: Notified by the nursing staff that patient's daughter Jojo who can be reached at [phone] would like to be updated on her father's condition. Called and spoke to Jojo she said that she is RN and lives in [place] as such she is quite concerned about her father's current health status and decline. Updated her on noted for management regarding her father's diagnosis with end-stage renal disease and his complaints of dyspnea discuss the treatment plan with Jojo. Met the patient at the bedside with his 's jose she can be reached at [phone]. he does admit to dyspnea on mild exertion. He admits to be compliant with his fluid and salt dietary restrictions he is confirms this is a denies skipping dialysis sessions is on dialysis Wednesday and Wednesday. He admit to history of atrial fibrillation compliant with his anticoagulation therapy, and also admits to a history of COPD but denies current tobacco use. He mentions possible environmental/occupational toxin exposures during 40 years working at the [employer]. He admits to being anuric GEN: Denies fever, chills or malaise HEENT: Denies headache blurriness, or dysphagia RESP: Admits to persistent SOB or cough CV: Denies chest pain or palpitations but reports dyspnea on exertion GI: Denies Nausea, vomiting, diarrhea or constipation Reviewed current in hospital medications with modifications see orders Reviewed Routine labs - Exam Vitals: Temp Pulse Resp BP Pulse Ox 97.3 F L 92 18 129/73 96 02/24/19 11:44 02/24/19 11:44 02/24/19 11:44 02/24/19 11:44 02/24/19 11:44 Exam: GEN: NAD, A&O x 3, Pleasant and conversant, at his bedside SKIN: Pale dry warm acyanotic not jaundice HEART: Irregularly irregular rate and rhythm no appreciable murmurs LUNGS: Diminished breath sounds bilaterally with diffuse wheezes with crackles, overall non labored ABDOMEN; Soft, non tender or distended, BS x 4 normactive EXT: 3+ bilat LE edema, Pedal pulses 1+, radial pulses 2+ PSYCH: Mood and affect is appropriate - Assessment and Plan (1) Dyspnea on exertion Current Visit: Yes Status: Acute Assessment and Plan: Patient reports dyspnea on mild exertion. Last echo in July 2018 revealed EF of 45-50%, patient does appear to have elevated BNP in the setting of end- stage renal disease. On exam no JVD he does have 3+ bilateral pitting edema of note suspicion was noted to have anasarca. Would not elaborate his workup to date limits between pulmonary causes versus cardiac or causes for his dyspnea he is satting 96% on room air laying comfortably in his hospital bed but still complain of bit short of breath. TTE, chest CT is pending patient had prior chest CT in September 2018 which revealed parachymal and pleura lung disease and emphysema. 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 He stated he hardly makes any urine will DC furosemide (3) Hyponatremia Current Visit: Yes Status: Acute Assessment and Plan: Acute on chronic, anasarca may be playing a factor. will trend (4) Anasarca Current Visit: Yes Status: Acute Assessment and Plan: Likely multifactorial he does have a history of FSGS with proteinuria, we will check LFTs since his daughter's request a comprehensive evaluation (5) Atrial fibrillation Current Visit: Yes Status: Chronic Assessment and Plan: He admits to being compliant with his medical therapy will monitor on telemetry appears rate controlled. (6) CAD (coronary artery disease) Current Visit: Yes Status: Chronic Assessment and Plan: Denies any chest pain on carvedilol, atorvastatin and not on any antiplatelets however could be due to him being on anticoagulation with apixaban (7) CHF (congestive heart failure) Current Visit: Yes Status: Chronic Assessment and Plan: although there were initial concern on volume overload this was not's apparent on physical exam this afternoon he does have 3+ bilateral lower extremity edema which is in line with his nephrotic syndrome and anasarca he has no JVD as aforementioned transthoracic echocardiogram is noted to evaluate for ejection fraction patient admits to being compliant with his fluids and dietary restriction and low-salt diet and also being compliant with his dialysis session Wednesday and Wednesday his who was at the bedside confirmed this fact, his elevated BNP is in line with his end-stage renal disease and likely poor clearance. This is not CHF exacerbation. Had female with reduced ejection fraction based on prior echo from July 45% EF (8) Diabetes mellitus Current Visit: Yes Status: Chronic Assessment and Plan: We will update a hemoglobin A1c given that his complaint of ZALDIVAR to evaluate control of his diabetes, continue insulin for now (9) Emphysema lung Current Visit: Yes Status: Chronic Assessment and Plan: CT chest ordered to help delineate any underlying lung pathology, according to his dyspnea (10) FSGS (focal segmental glomerulosclerosis) with nephrosis Current Visit: Yes Status: Chronic Assessment and Plan: Likely underlying reason for patient's anasarca DVT Prophylaxis: He is on apixaban - Time Spent with Patient Total time spent is greater than 50% in coordination of care (as documented) at patient's floor/unit and/or counseling patient: Internal Medicine: Result - Labs CBC & Chem 7: 02/24/19 03:43 02/24/19 03:43 Labs: Short CBC 02/24/19 Range/Units 03:43 WBC 5.5 (4.3-11.1) K/mcL Hgb 11.7 L (12.9-16.9) g/dL Hct 35.7 L (37.5-50.1) % Plt Count 195 (140-400) K/mcL Neutrophils # 5.1 (1.6-8.9) K/mcL BMP 02/24/19 03:43 Sodium 131 L Potassium 5.0 Chloride 93 L Carbon Dioxide 24 BUN 80 H Creatinine 9.64 H Glucose 185 H Calcium 7.8 L Cardiac Enzymes 02/23/19 Range/Units 21:54 Troponin I 0.09 H* (< 0.04) ng/mL - ABG Interpretation ABG results: PT/INR, D-dimer PT 12.3 Seconds (9.4-12.1) H 02/24/19 03:43 Consult Discharge Plan - Plan [facility]errals: [facility] [Primary Care Provider] - (5) Atrial fibrillation Qualifiers: Atrial fibrillation type: chronic Qualified Code(s): I48.2 - Chronic atrial fibrillation (6) CAD (coronary artery disease) Qualifiers: Coronary Disease-Associated Artery/Lesion type: [place] artery [place] vs. 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
[2019-02-24 12:36] LABS: Hepatitis B Surface Antibody 7.35 mIU/mL
[2019-02-24 12:41] LABS: Albumin 2.7 g/dL (3.5-5.7); Bilirubin,Indirect 0.3 mg/dL (0.0-1.2); Bilirubin,Total 0.3 mg/dL (0.3-1.0); Globulin 2.7 g/dL (2.4-3.5); Total Protein 5.4 g/dL (6.4-8.9)
[2019-02-24 12:51] LABS: Hepatitis B Surface Antigen Nonreactive (Nonreactive)
[2019-02-24] MEDS: Ipratropium/Albuterol Neb 3 ML IH SCH ×2 (16:24→22:29)
[2019-02-24] MEDS ORDERED: Perflutren Lipid Microsphere 1.3 ML in 0.9 % Sodium Chloride 8.7 ML IVP ONE (20:39)
[2019-02-24] MEDS: Melatonin 3 MG TABLET PO SCH (21:29)
[2019-02-25] MEDS: Ipratropium/Albuterol Neb 3 ML IH SCH ×4 (04:05→20:36)
[2019-02-25] MEDS: Insulin LISPRO 300 UNITS/3 ML VIAL SQ SCH ×4 (07:24→20:43)
[2019-02-25] MEDS: Calcium Acetate 667 MG CAPSULE PO SCH ×3 (07:34→17:18)
[2019-02-25] MEDS: *HR* Digoxin 0.125 MG TABLET PO SCH (07:34)
[2019-02-25] MEDS: Apixaban 5 MG TABLET PO SCH ×2 (07:35→20:28)
[2019-02-25] MEDS: Renal Vitamin 1 CAP CAPSULE PO SCH (07:35)
[2019-02-25 07:41] LABS: Basophils % 0.4 %; Eosinophils # 0.1 K/mcL (0.0-0.6); Eosinophils % 1.4 %; Hematocrit 34.2 % (37.5-50.1); Immature Granulocytes % 0.5 % (0-4); Lymphocytes # 1.1 K/mcL (0.6-4.6); Lymphocytes % 14.3 %; Mean Corpuscular HGB Conc 32.2 g/dL (31.6-35.5); Mean Corpuscular Hemoglobin 31.9 pg (28.0-33.3); Mean Corpuscular Volume 99.1 fL (83.0-100.0); Mean Platelet Volume 10.2 fL (9.4-12.4); Monocytes # 0.8 K/mcL (0.0-1.3); Monocytes % 10.1 %; Neutrophils # 5.7 K/mcL (1.6-8.9); Nucleated Red Blood Cells 0.4 /100 WBC (0); Platelet Count 187 K/mcL (140-400); Red Blood Count 3.45 M/mcL (4.19-5.50); Red Cell Distribution Width 17.9 % (11.5-14.5); Segmented Neutrophils % 73.3 %; White Blood Count 7.8 K/mcL (4.3-11.1)
[2019-02-25 07:54] LABS: Calcium 8.4 mg/dL (8.6-10.3); Magnesium 2.6 mg/dL (1.6-2.6); Phosphorous 4.2 mg/dL (2.7-4.5); Potassium 4.6 mEq/L (3.5-5.1)
[2019-02-25] MEDS ORDERED: Furosemide 40 MG TABLET PO SCH ×2 (08:00→09:00)
[2019-02-25 08:36] LABS: Estimated Average Glucose 126 mg/dl
[2019-02-25] MEDS: Budesonide/Formoterol 160/4.5 1 PUFF INH IH SCH ×3 (09:29→20:36)
--- NOTE | 2019-02-25 10:55 | Internal Med Progress Note ---
Hospitalist Progress Note - Encounter Date of Encounter: 02/25/19 Time of Encounter: 10:50 - Subjective Interval History: Mr Dumont that he does not feel good he is complaint of acute left lower quadrant pain and dyspnea with mild exertion. His echocardiogram from yesterday reveals EF is now 30% back in July 2018 EF was read as 45%. GEN: Admits to fever, chills or malaise HEENT: Denies headache blurriness, or dysphagia RESP: Reports SOB and cough CV: Denies chest pain or palpitations but reports dyspnea with mild exertion GI: Denies Nausea, vomiting, diarrhea or constipation Reviewed current in hospital medications with modifications see orders Reviewed Routine labs - Exam Vitals: Temp Pulse Resp BP Pulse Ox 97.6 F 111 18 135/77 91 02/25/19 07:02 02/25/19 07:02 02/25/19 09:31 02/25/19 07:02 02/25/19 09:31 Exam: GEN: Mildly distressed A&O x 3, Pleasant but less conversant today, at his bedside SKIN: Pale dry warm acyanotic not jaundice HEART: Irregularly irregular rate and rhythm grade 2/6 holosystolic murmur appreciated today LUNGS: Diminished breath sounds bilaterally with diffuse wheezes with crackles, overall non labored ABDOMEN; Soft, tender with some rebound not distended, BS x 4 normactive EXT: 3+ bilat LE edema, Pedal pulses 1+, radial pulses 2+ PSYCH: Mood and affect is appropriate - Assessment and Plan (1) Heart failure, systolic, with acute decompensation Current Visit: Yes Status: Acute Assessment and Plan: Patient reports dyspnea on mild exertion. Last echo in July 2018 revealed EF of 45-50%, repeat echo reveals EF of 30%. Discussed with the air valve mechanic recommended cardiology consult called and updated the sewer pipe press operator regarding patient recent echo findings with concerns of possible acute decompensated heart failure. (2) Dyspnea on exertion Current Visit: Yes Status: Acute Assessment and Plan: Most likely secondary to his decompensated heart failure. Last echo in July 2018 revealed EF of 45-50%, repeat echo reveals EF of 30%. Discussed with the air valve mechanic recommended cardiology consult called and updated the sewer pipe press operator regarding patient recent echo findings with concerns of possible acute decompensated heart failure. does appear to have elevated BNP in the setting of end-stage renal disease. On exam no JVD he does have 3+ bilateral pitting edema of note suspicion was noted to have anasarca. Would not elaborate his workup to date limits between pulmonary causes versus cardiac or causes for his dyspnea he is satting 96% on room air laying comfortably in his hospital bed but still complain of bit short of breath. TTE, chest CT is pending patient had prior chest CT in September 2018 which revealed parachymal and pleura lung disease and emphysema. 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 The plan is to dialyze patients today (4) Hyponatremia Current Visit: Yes Status: Acute Assessment and Plan: Acute on chronic, anasarca may be playing a factor. will trend sodium improved slightly from 131-134 is otherwise asymptomatic (5) Anasarca Current Visit: Yes Status: Acute Assessment and Plan: Likely multifactorial he does have a history of FSGS with proteinuria, we will check LFTs since his daughter's request a comprehensive evaluation, LFTs were remarkable TSH was unremarkable patient anasarca is likely the reason for his bilateral pleural effusion. (6) Atrial fibrillation Current Visit: Yes Status: Chronic Assessment and Plan: He admits to being compliant with his medical therapy will monitor on telemetry appears rate controlled. (7) CAD (coronary artery disease) Current Visit: Yes Status: Chronic Assessment and Plan: Denies any chest pain on carvedilol, atorvastatin and not on any antiplatelets however could be due to him being on anticoagulation with apixaban (8) CHF (congestive heart failure) Current Visit: Yes Status: Chronic Assessment and Plan: Recent echo reveals acute decompensated systolic heart failure see plan as above although there were initial concern on volume overload this was not's apparent on physical exam this afternoon he does have 3+ bilateral lower extremity edema which is in line with his nephrotic syndrome and anasarca he has no JVD as aforementioned transthoracic echocardiogram is noted to evaluate for ejection fraction patient admits to being compliant with his fluids and dietary restriction and low-salt diet and also being compliant with his dialysis session Wednesday and Wednesday his who was at the bedside confirmed this fact, his elevated BNP is in line with his end-stage renal disease and likely poor clearance. This is not CHF exacerbation. Had female with reduced ejection fraction based on prior echo from July 45% EF (9) Diabetes mellitus Current Visit: Yes Status: Chronic Assessment and Plan: A1c was 6 continue insulin per protocol with bedside fingersticks and mild coverage (10) Emphysema lung Current Visit: Yes Status: Chronic Assessment and Plan: CT chest ordered to help delineate any underlying lung pathology, it revealed pleural parenchyma fibrosis present in the right upper lobe and advance emphysema (1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 Current Visit: Yes Status: Chronic Assessment and Plan: Likely underlying reason for patient's anasarca DVT Prophylaxis: on apixaban - Time Spent with Patient Total time spent is greater than 50% in coordination of care (as documented) at patient's floor/unit and/or counseling patient: Internal Medicine: Result - Labs CBC & Chem 7: 02/25/19 07:05 02/25/19 07:05 Labs: Short CBC 02/25/19 Range/Units 07:05 WBC 7.8 (4.3-11.1) K/mcL Hgb 11.0 L (12.9-16.9) g/dL Hct 34.2 L (37.5-50.1) % Plt Count 187 (140-400) K/mcL Neutrophils # 5.7 (1.6-8.9) K/mcL BMP 02/25/19 07:05 Sodium 134 L Potassium 4.6 Chloride 94 L Carbon Dioxide 29 BUN 43 H Creatinine 6.60 H Glucose 93 Calcium 8.4 L Liver Function 02/24/19 Range/Units 12:00 Total Bilirubin 0.3 (0.3-1.0) mg/dL Direct Bilirubin 0.0 (0.0-0.2) mg/dL AST 26 (13-39) Units/L ALT 17 (7-52) Units/L Alkaline Phosphatase 49 (34-104) Units/L Albumin 2.7 L (3.5-5.7) g/dL - ABG Interpretation ABG results: PT/INR, D-dimer PT 12.3 Seconds (9.4-12.1) H 09/13/19 03:43 - Impressions Impressions Chest CT 02/24/19 12:17 IMPRESSION: Small to moderate, dependently layered bilateral pleural effusions have increased in the interval. Pleuroparenchymal fibrosis pattern in the right upper lobe is stable. Advanced emphysema. D/ / Marcelino Hoffman MD / Marcelino Hoffman MD Interpreting Provider: Marcelino Hoffman MD Consult Discharge Plan - Plan Referrals: [facility] [Primary Care Provider] - (6) Atrial fibrillation Qualifiers: Atrial fibrillation type: chronic Qualified Code(s): I48.2 - Chronic atrial fibrillation (7) CAD (coronary artery disease) Qualifiers: Coronary Disease-Associated Artery/Lesion type: [place] artery [place] vs. transplanted heart: [place] heart Associated angina: without angina Qualified Code(s): I25.10 - Atherosclerotic heart disease of [place] coronary artery without angina pectoris (8) CHF (congestive heart failure) Qualifiers: Heart failure type: combined systolic and diastolic Heart failure chronicity: chronic Qualified Code(s): I50.42 - Chronic combined systolic (congestive) and diastolic (congestive) heart failure (9) Diabetes mellitus Qualifiers: Diabetes mellitus type: type 2 Diabetes mellitus senior care insulin use: without senior care use Diabetes mellitus complication status: without complication Qualified Code(s): E11.9 - Type 2 diabetes mellitus without complications (10) Emphysema lung Qualifiers: Emphysema type: panlobular Qualified Code(s): J43.1 - Panlobular emphysema
--- NOTE | 2019-02-25 11:37 | Nephrology Progress Note ---
Date of Encounter: 02/25/19 Time of Encounter: 11:35 - Assessment and Plan (1) ESRD (end stage renal disease) on dialysis Current Visit: Yes Status: Acute HD MWF. Renal vitamins. Renal dose medications. Renal diet. Additional dialysis and ultrafiltration as needed. The patient was seen on dialysis for UF today. We will evaluate daily for the need for dialysis or ultrafiltration. (2) Hyponatremia Current Visit: Yes Status: Acute (3) Shortness of breath Current Visit: Yes Status: Acute Patient reports that his breathing is getting worse today. I spoke with the primary team. The patient's shortness of breath improved yesterday while on dialysis. I will perform dialysis again today, however, I am concerned that there may be another process going on. His CT scan reveals increasing pleural effusions that could be contributing. Also review of his echocardiogram over the years reveals a decreasing ejection fraction. I do not see where he has had a cardiac evaluation such as a cardiac catheterization. I recommend getting a cardiology consultation to evaluate if the patient needs intervention. Also with his bilateral pleural effusions and dyspnea that is not improving with ultrafiltration consider a pulmonary consult for possible thoracentesis. 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 Consider serial troponins and a cardiology consultation. Qualifiers: Qualified Code(s): I42.9 - Cardiomyopathy, unspecified Subjective Principal diagnosis: esrd Interval history: The patient was seen. His is at his bedside. He is feeling worse today. He is short of breath again. No chest pain. His review of system otherwise stable. Objective - Vital Signs Vital signs: Vital Signs Temp Pulse Resp BP Pulse Ox 02/25/19 11:01 97.7 F 95 16 152/73 91 02/25/19 09:31 18 91 02/25/19 07:02 97.6 F 111 18 135/77 91 02/25/19 05:36 16 95 02/24/19 23:11 97.6 F 114 18 132/72 95 02/24/19 22:29 18 95 02/24/19 21:31 97.6 F 97 18 145/79 95 02/24/19 17:25 97.5 F L 15 131/88 02/24/19 16:50 124/81 02/24/19 16:35 138/61 02/24/19 16:20 144/76 02/24/19 16:05 118/76 02/24/19 15:50 135/87 02/24/19 15:35 119/82 02/24/19 15:20 145/91 02/24/19 15:05 133/91 02/24/19 14:50 115/85 02/24/19 14:35 129/65 02/24/19 14:20 130/82 02/24/19 14:05 143/90 02/24/19 13:50 131/67 02/24/19 13:35 97.6 F 17 149/90 02/24/19 11:44 97.3 F L 92 18 129/73 96 Intake and Output 02/24/19 02/25/19 02/25/19 23:59 07:59 15:59 Intake Total 200 / 820 350 / 350 Output Total 3068 / 3068 Balance -2868 / -2248 350 / 350 Intake: Oral 200 / 320 350 / 350 Output: Urine 0 / 0 Total Dialysis (HD) Output 3068 / 3068 Other: Weight 76.7 kg Blood Glucose* 170 107 Hemodialysis Net Fluid Removed 2568 (mL) Patient Weight 02/25/19 23:59 Weight 76.7 kg - General Appearance General appearance: Present: well-developed, well-nourished EENT: Present: ATNC Neck: Present: supple Cardiology: Present: regular rate Dialysis Vascular Access: Arteriovenous Fistula Gastrointestinal: Present: no tenderness Integumentary: Present: warm and dry Neurologic: Present: alert and oriented x3 Musculoskeletal: Present: no cyanosis Psychiatric: Present: mood/affect appropriate - Lab 02/25/19 07:05 02/25/19 07:05 Most recent lab results 02/25/19 07:05 Calcium 8.4 L Phosphorus 4.2 Magnesium 2.6 Consult Discharge Plan - Plan Referrals: [facility],PCP [Primary Care Provider] -
[2019-02-25] MEDS ORDERED: 0.9 % Sodium Chloride 250 ML IVC PRN (12:15)
[2019-02-25] MEDS: levoFLOXacin 500 MG/100 ML 500 MG/100 ML BAG IVPB ONE (12:56)
[2019-02-25] MEDS: Melatonin 3 MG TABLET PO SCH (20:28)
[2019-02-26] MEDS: Ipratropium/Albuterol Neb 3 ML IH SCH (03:53)
[2019-02-26 04:49] LABS: Basophils % 0.3 %; Eosinophils # 0.1 K/mcL (0.0-0.6); Eosinophils % 1.3 %; Hematocrit 32.8 % (37.5-50.1); Hemoglobin 10.6 g/dL (12.9-16.9); Immature Granulocytes % 0.3 % (0-4); Lymphocytes # 0.9 K/mcL (0.6-4.6); Lymphocytes % 12.5 %; Mean Corpuscular HGB Conc 32.3 g/dL (31.6-35.5); Mean Corpuscular Hemoglobin 32.1 pg (28.0-33.3); Mean Corpuscular Volume 99.4 fL (83.0-100.0); Mean Platelet Volume 10.3 fL (9.4-12.4); Monocytes # 0.8 K/mcL (0.0-1.3); Monocytes % 11.3 %; Neutrophils # 5.4 K/mcL (1.6-8.9); Platelet Count 167 K/mcL (140-400); Red Cell Distribution Width 17.5 % (11.5-14.5); Segmented Neutrophils % 74.3 %; White Blood Count 7.2 K/mcL (4.3-11.1)
[2019-02-26 05:08] LABS: Calcium 8.6 mg/dL (8.6-10.3); Magnesium 2.5 mg/dL (1.6-2.6); Phosphorous 5.5 mg/dL (2.7-4.5); Potassium 5.3 mEq/L (3.5-5.1)
[2019-02-26] MEDS: Levalbuterol Neb 1.25 MG/3 ML IH SCH ×4 (07:33→21:22)
[2019-02-26] MEDS: Insulin LISPRO 300 UNITS/3 ML VIAL SQ SCH ×4 (08:03→19:47)
[2019-02-26] MEDS: Renal Vitamin 1 CAP CAPSULE PO SCH (08:07)
[2019-02-26] MEDS: Apixaban 5 MG TABLET PO SCH (08:07)
[2019-02-26] MEDS: Calcium Acetate 667 MG CAPSULE PO SCH ×3 (08:07→16:55)
[2019-02-26] MEDS: *HR* Digoxin 0.125 MG TABLET PO SCH (08:08)
--- NOTE | 2019-02-26 09:49 | Nephrology Progress Note ---
Date of Encounter: 02/26/19 Time of Encounter: 09:49 - Assessment and Plan (1) ESRD (end stage renal disease) on dialysis Current Visit: Yes Status: Acute HD MWF. Renal vitamins. Renal dose medications. Renal diet. Additional dialysis and ultrafiltration as needed. We will evaluate daily for the need for dialysis or ultrafiltration. (2) Hyponatremia Current Visit: Yes Status: Acute This should improve with dialysis and fluid restriction. (3) Shortness of breath Current Visit: Yes Status: Acute Patient reports that his breathing is better after dialysis. Await cardiology evaluation of his decreased ejection fraction. If pleural effusions persist consider a pulmonary consultation. 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 He reports that he feels better today after his dialysis session on Wednesday. His review of system otherwise stable. Objective - Vital Signs Vital signs: Vital Signs Temp Pulse Resp BP Pulse Ox 02/26/19 08:15 97 02/26/19 07:39 97.5 F L 95 18 129/63 97 02/26/19 03:53 16 96 02/26/19 03:51 111 133/89 02/26/19 03:17 114 130/82 02/26/19 02:50 98.1 F 99 18 139/88 97 02/25/19 23:18 97.7 F 115 16 135/90 94 02/25/19 20:37 20 92 02/25/19 18:56 97.8 F 100 16 104/69 91 02/25/19 18:15 97.7 F 18 140/71 02/25/19 15:55 129/60 02/25/19 15:40 126/73 02/25/19 15:25 110/74 02/25/19 15:10 125/86 02/25/19 14:55 144/85 02/25/19 14:40 138/93 02/25/19 14:25 142/75 02/25/19 14:10 143/77 02/25/19 13:55 135/73 02/25/19 13:40 136/81 02/25/19 13:25 98.0 F 18 131/86 02/25/19 11:01 97.7 F 95 16 152/73 91 Intake and Output 02/25/19 02/26/19 02/26/19 23:59 07:59 15:59 Intake Total 0 / 373.1 373.1 / 373.1 Output Total 3600 / 3600 0 / 0 0 / 0 Balance -3600 / -2650 0 / 373.1 373.1 / 373.1 Intake: IV Fluids 13.1 / 13.1 Cardizem 50 MG In 0.9 % Sodium 13. 13.1 Chloride 40 ML @ 2.5 MG/HR 2.5 mls/hr IVC CONT VERONICA Rx#: [id number] Oral 0 / 360 360 / 360 Output: Urine 0 / 0 0 / 0 0 / 0 Total Dialysis (HD) Output 3600 / 3600 Other: Meal Breakfast Percent of Meal Consumed 75% Weight 76.5 kg Blood Glucose* 139 96 Hemodialysis Net Fluid Removed 3000 (mL) Patient Weight 02/26/19 23:59 Weight 76.5 kg - General Appearance General appearance: Present: well-developed, well-nourished EENT: Present: ATNC Cardiology: Present: regular rate Neurologic: Present: alert and oriented x3 Psychiatric: Present: mood/affect appropriate - Lab 02/26/19 04:00 02/26/19 04:00 Most recent lab results 02/26/19 04:00 Calcium 8.6 Phosphorus 5.5 H Magnesium 2.5 Consult Discharge Plan - Plan Referrals: [facility],PCP [Primary Care Provider] -
--- NOTE | 2019-02-26 10:04 | Cardiology Consult Note ---
<Alem Galeas - Last Filed: 02/26/19 11:01> Date of Encounter: 02/26/19 Time of Encounter: 09:00 Assessment and Plan (1) Cardiomyopathy Current Visit: Yes Status: Acute -Echo 02/26/2019: LVEF 30%, Mild-moderate MR, Moderate TR, Mild-moderate pulmonary hypertension. pulmonic regurgitation, pleural effusion is present. -Limited Echo 07/2018: [id number]%. Hx 2v CABG, suspect ischemic CMP. ASA started, continue BB and statin. Not on KENDRA/ARB due to ESRD. Per patient and , has had increasing SOB, fatigue and edema over the past week and a half. Non-pittnig BLE edema on exam. Denies CP. Given newly reduced EF, recommending LHC to r/o ischemia. A/R/B discussed with patient and his - they are agreeable. Will plan for LHC tomorrow. NPO after midnight. Will hold Eliquis and resume after LHC. Qualifiers: Qualified Code(s): I42.9 - Cardiomyopathy, unspecified (2) Atrial fibrillation Current Visit: Yes Status: Chronic Per RN, was on 2.5mg Cardizem gtt over night. Average HR past 12 hours on tele was 105. Continue Coreg and Digoxin, discontinue Cardizem gtt. Anticoagulated on 2.5mg BID of Eliquis at home, on hold currently for cath tomorrow. Qualifiers: Atrial fibrillation type: chronic Qualified Code(s): I48.2 - Chronic atrial fibrillation (3) CAD (coronary artery disease) Current Visit: Yes Status: Chronic Hx of 2 CABG in 2018. Follows at [facility]. Will add ASA. Continue BB and statin. Plan as above. Qualifiers: Coronary Disease-Associated Artery/Lesion type: [place] artery [place] vs. transplanted heart: [place] heart Associated angina: without angina Qualified Code(s): I25.10 - Atherosclerotic heart disease of [place] coronary artery without angina pectoris Discussion w patient/family: The assessment and plan as outlined above was discussed with the patient and/or family members who expressed understanding and agreement. All questions were answered. Thank you for involving us in the care of your patient. Please call with any questions. The above assessment and plan will be discussed with Dr. Choudhury and I will make changes as necessary. History of Present Illness Consult date: 02/26/19 Consult reason: new 30% EF, last known 45% History of present illness: Mr. Dumont is a 73yo male with PMH of HTN, HLD, Afib, DM, COPD, gout, CAD s/p 2v CABG in 2017, CHF, ESRD and started on HD in July who presents to our ER on referral from the [place] urgent care where he presented to with complaints of SOB that has been present for a month but acutely worsened in the past couple of days. He denied any chest pain. He said he was given breathing treatments there helping him improve and was to be admitted however because they lack dialysis was also concern for fluid overload he was transferred here for further care. He has remained adherent to his Wednesday, Wednesday and Wednesday HD schedule. Reports increasing SOB, fatigue and edema has worsened in the past week and a half. Past Med Surg Social Fam HX - Past Medical History Medical history: atrial fibrillation, cardiomyopathy, CHF, coronary artery disease, hypertension, renal disease Additional medical history: gout Psychiatric history: no psych history - Past Surgical History Surgical History: coronary bypass (CABG), herniorrhaphy, pacemaker/AICD Additional surgical history: bowel resection - Social History Smoking Status: Never smoker Smokeless Tobacco Status: No Alcohol use: none Drug use: none - Family History Father Hx Family Cardiac Disorders: Yes ([place]) Grandfather Hx Family Cardiac Disorders: Yes Medications and Allergies Carvedilol [Coreg] 12.5 mg PO BID 05/27/18 [History] Colchicine [Colcrys] 0.6 mg PO DAILY PRN 05/27/18 [History] Docusate [Colace] 200 mg PO DAILY 05/27/18 [History] Digoxin [Lanoxin] 0.0625 mg PO DAILY 06/17/18 [History] Albuterol Sulfate [Proair Hfa] 2 puff IH Q6H PRN 07/28/18 [History] Budesonide/Formoterol 160/4.5 [Symbicort 160/4.5] 1 puff IH BIDR 07/28/18 [History] GlipiZIDE [Glucotrol] 2.5 mg PO DAILY 07/28/18 [History] Atorvastatin [Lipitor] 20 mg PO HS #30 tablet 08/12/18 [Rx] Allopurinol [Zyloprim 100 MG] 100 mg PO DAILY 02/23/19 [History] Apixaban [Eliquis] 2.5 mg PO BID 02/23/19 [History] Calcium Acetate [Phos-LO] 1,334 mg PO TIDWM 02/23/19 [History] Calcium Acetate [Phos-LO] 667 mg PO DAILY 02/23/19 [History] Folic Acid/Vit B Complex and C [Dialyvite 800 Chewable Wafer] 800 mcg PO DAILY 02/23/19 [History] Furosemide [Lasix] 40 mg PO AD 02/23/19 [History] Ipratropium/Albuterol Neb [Duoneb] 3 ml IH Q6HR PRN 02/23/19 [History] Melatonin 5 mg PO HS 02/23/19 [History] Ondansetron ODT [Zofran ODT] 4 mg PO Q6-8H PRN 02/23/19 [History] Polyethylene Glycol 3350 [MiraLAX] 17 gm PO DAILY PRN 02/23/19 [History] Allergy/AdvReac Type Severity Reaction Status Date / Time meperidine [From Demerol] Allergy Hives Verified 02/23/19 21:53 All Systems Review: The remainder of the systems were reviewed and are negative - Cardiovascular Cardiovascular: as per HPI Physical Examination Vital Signs, Last 4 Hours Temp Pulse Resp BP Pulse Ox 02/26/19 08:15 97 02/26/19 07:39 97.5 F L 95 18 129/63 97 General: Conversant, No Apparent Distress HEENT: Atraumatic, Normocephaly, Mucus Membranes Moist Cardiac: Other (irregularly irregular) Lungs: Normal Breath Sounds, No Wheeze, Rales, Rhonchi Neuro: Alert and responsive, No focal deficits noted Extremities: No Clubbing, No Cyanosis, Normal Pulses, Other (non-pitting BLE edema) Results 02/26/19 04:00 02/26/19 04:00 Lab Results 02/26/19 02/26/19 04:00 04:00 WBC 7.2 Hgb 10.6 L Hct 32.8 L Plt Count 167 Sodium 133 L Potassium 5.3 H Chloride 95 L Carbon Dioxide 27 BUN 53 H Creatinine 7.37 H Glucose 96 Calcium 8.6 Magnesium 2.5 Impressions Abdomen/Pelvis CT 02/25/19 11:45 IMPRESSION: Moderate pleural effusions bilaterally, increased. Emphysema. Patchy consolidation in the lower lobes, greater on the left. Atelectasis versus infection. Small hiatal hernia. Cholelithiasis. No acute cholecystitis. D/ / Giovanna Reveles MD / Giovanna Reveles MD Interpreting Provider: Giovanna Reveles MD Short CBC 02/26/19 Range/Units 04:00 WBC 7.2 (4.3-11.1) K/mcL Hgb 10.6 L (12.9-16.9) g/dL Hct 32.8 L (37.5-50.1) % Plt Count 167 (140-400) K/mcL Neutrophils # 5.4 (1.6-8.9) K/mcL BMP 02/26/19 Range/Units 04:00 Sodium 133 L (136-145) mEq/L Potassium 5.3 H (3.5-5.1) mEq/L Chloride 95 L (98-107) mEq/L Carbon Dioxide 27 (23-29) mEq/L BUN 53 H (8-23) mg/dL Creatinine 7.37 H (0.70-1.30) mg/dL Glucose 96 (70-105) mg/dL Calcium 8.6 (8.6-10.3) mg/dL - Imaging and Cardiology Echo: report reviewed Other Results: 12hr tele reviewed: average HR 105, Afib, no events noted - EKG Interpretation EKG results cardiology: personally reviewed, no diagnostic ischemia (Afib, reviewed and compared to EKG 07/2018.) Consult Discharge Plan - Plan [facility]errals: [facility] [Primary Care Provider] - CHADS2-VASC Score - Score Age: Greater than or equal to 75 Sex: Male CHF History: Yes Hypertension history: Yes Diabetes history: Yes Score: 5 HAS-BLED Score - Score Abnormal renal function: Dialysis, Transplant, or CR>2.26 mg/dl Elderly: Age>65 years Medication usage predisposing to bleeding: Antiplatelet agents, NSAIDs, Anticoagulants Score: 3 <Jewell Choudhury - Last Filed: 02/26/19 11:27> Date of Encounter: 02/26/19 - Attending Attestation I examined this patient and my medical decision-making was reviewed with the CASING MAN. I agree with the documented findings, disposition and treatment plan as described. Assessment and Plan Discussion w patient/family: The assessment and plan as outlined above was discussed with the patient and/or family members who expressed understanding and agreement. All questions were answered. Thank you for involving us in the care of your patient. Please call with any questions. History of Present Illness History of present illness: Mr. Dumont is a 73 year old male All Systems Review: The remainder of the systems were reviewed and are negative Physical Examination Vital Signs, Last 4 Hours Temp Pulse Resp BP Pulse Ox 02/26/19 08:15 97 02/26/19 07:39 97.5 F L 95 18 129/63 97 Results 02/26/19 04:00 02/26/19 04:00 Lab Results 02/26/19 02/26/19 04:00 04:00 WBC 7.2 Hgb 10.6 L Hct 32.8 L Plt Count 167 Sodium 133 L Potassium 5.3 H Chloride 95 L Carbon Dioxide 27 BUN 53 H Creatinine 7.37 H Glucose 96 Calcium 8.6 Magnesium 2.5
[2019-02-26] MEDS: Budesonide/Formoterol 160/4.5 1 PUFF INH IH SCH ×2 (10:49→21:21)
[2019-02-26] MEDS: Aspirin Enteric Coated 81 MG Tablet PO SCH (12:01)
--- NOTE | 2019-02-26 12:10 | Internal Med Progress Note ---
Hospitalist Progress Note - Encounter Date of Encounter: 02/26/19 Time of Encounter: 12:03 - Subjective Interval History: Met with Mr. Dumont , daughter, grandson and future son-in-law at the bedside today. He was evaluated by cardiology team as scheduled for [facility] tomorrow. Discussed treatment plan with the patient and his family educated them on his underlying etiology of nephrotic syndrome leading to his anasarca state. Discussed with them regarding his bilateral pleural effusion that thoracentesis is only temporary fix and that given his anasarca he would likely fill back up. Discussed with them the possible options might be a bilateral Pleurx catheter which itself comes with associated risks. Given the prolonged nature of this pleural effusion and underlying advanced emphysema patient is high risk for pneumothorax AND/ OR trapped lung which may complicate his otherwise already decompensated cardiopulmonary issues. Also revisited palliative options with talks currently on hold pending his left heart cath. Mr. Dumont since dialysis yesterday reports much improvement shortness of breath sensation. Per nursing staff patient went into atrial fibrillation with rapid ventricular response with rates in the 150s was started on diltiazem drip which has been subsequently discontinued and he was started on very low dose digoxin GEN: Denies fever, chills or malaise HEENT: Denies headache blurriness, or dysphagia RESP: reports improved SOB CV: Denies chest pain or palpitations GI: Denies Nausea, vomiting, diarrhea or constipation Reviewed current in hospital medications with modifications see orders Reviewed Routine labs - Exam Vitals: Temp Pulse Resp BP Pulse Ox 97.4 F L 79 18 121/69 92 02/26/19 11:39 02/26/19 11:39 02/26/19 11:39 02/26/19 11:39 02/26/19 11:39 Exam: GEN: NAD, A&O x 3, Pleasant and conversant, , daughter and her fiance, grandson at his bedside SKIN: Pale dry warm acyanotic not jaundice HEART: Irregularly irregular rate and rhythm grade 2/6 holosystolic murmur appreciated today LUNGS: Diminished breath sounds bilaterally with diffuse wheezes with crackles, overall non labored ABDOMEN; Soft, tender with some rebound not distended, BS x 4 normactive EXT: 3+ bilat LE edema, Pedal pulses 1+, radial pulses 2+ PSYCH: Mood and affect is appropriate - Assessment and Plan (1) Atrial fibrillation Current Visit: Yes Status: Chronic Assessment and Plan: Patient went into atrial fibrillation with rapid ventricular response yesterday was started on diltiazem drip has been subsequently discontinued given his poor EF started on very low dose digoxin will trend dig level given his ESRD on HD. Of note TSH was checked 2 days ago and within normal limits (2) Chronic bilateral pleural effusions Current Visit: Yes Status: Acute Assessment and Plan: bilateral pleural effusion is secondary to combination of his anasarca state and poor cardiac output. Thoracentesis is only temporary fix given his anasarca he would likely fill back up. Possible options might be a bilateral Pleurx catheter which itself comes with associated risks. Given the prolonged nature of this pleural effusion and underlying advanced emphysema patient is high risk for pneumothorax AND/ OR trapped lung which may complicate his otherwise already decompensated cardiopulmonary issues. His overall respiration appears to be improved since dialysis, would encourage patient to be up to chair daily and only lay in bed to sleep. Discussed with and patient family to improve his protein intake so as to help mobilize fluids intravascularly. If need be consult to cardiothoracic team or interventional radiology may be considered tomorrow for Pleurx catheter placement (3) Heart failure, systolic, with acute decompensation Current Visit: Yes Status: Acute Assessment and Plan: Patient reports dyspnea on mild exertion. Last echo in July 2018 revealed EF of 45-50%, repeat echo reveals EF of 30%. Patient was seen by the cardiology team appreciated input is planned for left heart catheter tomorrow since there is concern for ischemic cardiomyopathy. Patient no longer makes urine as such diuretic therapy will be futile, his volume load is being addressed by hemodialysis he was dialyzed yesterday and seems to have correlated his improvement -4.5 L during his hospital stay (4) Dyspnea on exertion Current Visit: Yes Status: Acute Assessment and Plan: Most likely secondary to his decompensated heart failure. Last echo in July 2018 revealed EF of 45-50%, repeat echo reveals EF of 30%. Coupled with underlying anasarca related pleural effusion in the setting of advanced COPD. As aforementioned plan does appear to have elevated BNP in the setting of end-stage renal disease. On exam no JVD he does have 3+ bilateral pitting edema of note suspicion was noted to have anasarca. Would not elaborate his workup to date limits between pulmo nary causes versus cardiac or causes for his dyspnea he is satting 96% on room air laying comfortably in his hospital bed but still complain of bit short of breath. TTE, chest CT is pending patient had prior chest CT in September 2018 which revealed parachymal and pleura lung disease and emphysema. 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 Patient was dialyzed yesterday (6) Hyponatremia Current Visit: Yes Status: Acute Assessment and Plan: Acute on chronic, anasarca may be playing a factor. will trend sodium improved slightly from 131-134-133 he is otherwise asymptomatic (7) Anasarca Current Visit: Yes Status: Acute Assessment and Plan: Likely multifactorial he does have a history of FSGS with proteinuria, daughter requested a comprehensive evaluation, LFTs were remarkable TSH was unremarkable patient anasarca is likely the reason for his bilateral pleural effusion. Discussed with patient and his family that he should improve his protein intake. Given his end-stage renal disease nepro supplement ordered 3 times daily with meals (8) CAD (coronary artery disease) Current Visit: Yes Status: Chronic Assessment and Plan: Denies any chest pain on carvedilol, atorvastatin and not on any antiplatelets however could be due to him being on anticoagulation with apixaban. Followed by cardiology team [facility] planned for tomorrow (9) CHF (congestive heart failure) Current Visit: Yes Status: Chronic Assessment and Plan: Recent echo reveals acute decompensated systolic heart failure see plan as above although there were initial concern on volume overload this was not's apparent on physical exam this afternoon he does have 3+ bilateral lower extremity edema which is in line with his nephrotic syndrome and anasarca he has no JVD as aforementioned transthoracic echocardiogram is noted to evaluate for ejection fraction patient admits to being compliant with his fluids and dietary restriction and low-salt diet and also being compliant with his dialysis session Wednesday and Wednesday his who was at the bedside confirmed this fact, his elevated BNP is in line with his end-stage renal disease and likely poor clearance. This is not CHF exacerbation. Had female with reduced ejection fraction based on prior echo from July 45% EF (10) Diabetes mellitus Current Visit: Yes Status: Chronic Assessment and Plan: A1c was 6 continue insulin per protocol with bedside fingersticks and mild coverage POC 107 to 139 (11) Emphysema lung Current Visit: Yes Status: Chronic Assessment and Plan: CT chest ordered to help delineate any underlying lung pathology, it revealed pleural parenchyma fibrosis present in the right upper lobe and advance emphysema, his DuoNeb was discontinued due to patient having a rapid ventricular response atrial fibrillation now on levo albuterol (12) FSGS (focal segmental glomerulosclerosis) with nephrosis Current Visit: Yes Status: Chronic Assessment and Plan: Likely underlying reason for patient's anasarca. Etiology for his FSGS is still unclear DVT Prophylaxis: On apixaban - Time Spent with Patient Total time spent is greater than 50% in coordination of care (as documented) at patient's floor/unit and/or counseling patient: Internal Medicine: Result - Labs CBC & Chem 7: 02/26/19 04:00 02/26/19 04:00 Labs: Short CBC 02/26/19 Range/Units 04:00 WBC 7.2 (4.3-11.1) K/mcL Hgb 10.6 L (12.9-16.9) g/dL Hct 32.8 L (37.5-50.1) % Plt Count 167 (140-400) K/mcL Neutrophils # 5.4 (1.6-8.9) K/mcL BMP 02/26/19 04:00 Sodium 133 L Potassium 5.3 H Chloride 95 L Carbon Dioxide 27 BUN 53 H Creatinine 7.37 H Glucose 96 Calcium 8.6 - ABG Interpretation ABG results: PT/INR, D-dimer PT 12.3 Seconds (9.4-12.1) H 02/24/19 03:43 Consult Discharge Plan - Plan Referrals: [facility],PC[facility] [Primary Care Provider] - (1) Atrial fibrillation Qualifiers: Atrial fibrillation type: chronic Qualified Code(s): I48.2 - Chronic atrial fibrillation (8) CAD (coronary artery disease) Qualifiers: Coronary Disease-Associated Artery/Lesion type: [place] artery [place] vs. transplanted heart: [place] heart Associated angina: without angina Qualified Code(s): I25.10 - Atherosclerotic heart disease of [place] coronary artery without angina pectoris (9) CHF (congestive heart failure) Qualifiers: Heart failure type: combined systolic and diastolic Heart failure chronicity: chronic Qualified Code(s): I50.42 - Chronic combined systolic (congestive) and diastolic (congestive) heart failure (10) Diabetes mellitus Qualifiers: Diabetes mellitus type: type 2 Diabetes mellitus rn long term care insulin use: without rn long term care use Diabetes mellitus complication status: without complication Qualified Code(s): E11.9 - Type 2 diabetes mellitus without complications (11) Emphysema lung Qualifiers: Emphysema type: panlobular Qualified Code(s): J43.1 - Panlobular emphysema
[2019-02-26] MEDS: Melatonin 3 MG TABLET PO SCH (19:48)
[2019-02-27 04:09] LABS: Basophils % 0.3 %; Eosinophils # 0.1 K/mcL (0.0-0.6); Hematocrit 34.2 % (37.5-50.1); Immature Granulocytes % 0.3 % (0-4); Lymphocytes # 1.1 K/mcL (0.6-4.6); Lymphocytes % 15.7 %; Mean Corpuscular HGB Conc 32.2 g/dL (31.6-35.5); Mean Corpuscular Hemoglobin 31.9 pg (28.0-33.3); Mean Corpuscular Volume 99.1 fL (83.0-100.0); Mean Platelet Volume 10.4 fL (9.4-12.4); Monocytes # 0.6 K/mcL (0.0-1.3); Neutrophils # 5.1 K/mcL (1.6-8.9); Platelet Count 181 K/mcL (140-400); Red Blood Count 3.45 M/mcL (4.19-5.50); Red Cell Distribution Width 17.4 % (11.5-14.5); Segmented Neutrophils % 72.7 %
[2019-02-27] MEDS: Levalbuterol Neb 1.25 MG/3 ML IH SCH ×4 (04:19→22:26)
[2019-02-27 04:27] LABS: Calcium 9.6 mg/dL (8.6-10.3); Digoxin 1.1 ng/mL (0.8-2.0); Magnesium 2.9 mg/dL (1.6-2.6); Phosphorous 6.3 mg/dL (2.7-4.5); Potassium 5.2 mEq/L (3.5-5.1)
[2019-02-27] MEDS: Calcium Acetate 667 MG CAPSULE PO SCH ×3 (07:38→18:30)
[2019-02-27] MEDS: Insulin LISPRO 300 UNITS/3 ML VIAL SQ SCH ×3 (07:38→18:29)
--- NOTE | 2019-02-27 08:21 | Pre-Sedation Evaluation ---
Pre-sedation evaluation - Pre-sedation checklist Date of procedure: 02/27/19 Procedure: [facility] Recent Vitals: Last Vital Signs Temp 98.0 F 02/27/19 06:55 Pulse 75 02/27/19 06:55 Resp 15 02/27/19 06:55 BP 124/75 02/27/19 06:55 Pulse Ox 93 02/27/19 06:55 H&P (including ROS) documented in medical record: Yes Previous reaction to sedatives/anesthetics: No Dietary Status: NPO after Midnight Dentition: No loose teeth or bridges ASA Classification *see protocol: CLASS II-Mild systemic disease Cardiac Registry (Cardio Only) - Functional Capacity Functional Capacity: >=4 METS with symptoms - Clincal Frailty Scale Clinical Frailty Scale: Managing Well
[2019-02-27] MEDS ORDERED: 0.9 % Sodium Chloride 250 ML IVC PRN (08:39)
[2019-02-27] MEDS ORDERED: levoFLOXacin 500 MG/100 ML 500 MG/100 ML BAG IVPB ONE (09:44)
[2019-02-27] MEDS: Budesonide/Formoterol 160/4.5 1 PUFF INH IH SCH ×2 (10:54→22:26)
--- NOTE | 2019-02-27 11:26 | Nephrology Progress Note ---
Date of Encounter: 02/27/19 Time of Encounter: 11:24 - Assessment and Plan (1) ESRD (end stage renal disease) on dialysis Current Visit: Yes Status: Acute HD MWF in [place] with [facility]. HD in progress today. Renal vitamins. Renal dose medications. Renal diet. Additional dialysis and ultrafiltration as needed. We will evaluate daily for the need for dialysis or ultrafiltration. (2) Hyponatremia Current Visit: Yes Status: Acute This should improve with dialysis and fluid restriction. Na is 130 today. (3) Shortness of breath Current Visit: Yes Status: Acute Reports symptoms are improved. Left heart catheter scheduled later for today. (4) Atrial fibrillation Current Visit: Yes Status: Chronic Qualifiers: Atrial fibrillation type: chronic Qualified Code(s): I48.2 - Chronic atrial fibrillation (5) Diabetes mellitus Current Visit: Yes Status: Chronic We will defer to the primary team. Qualifiers: Diabetes mellitus type: type 2 Diabetes mellitus long term care administrator insulin use: without long term care administrator use Diabetes mellitus complication status: without complication Qualified Code(s): E11.9 - Type 2 diabetes mellitus without complications (6) Cardiomyopathy Current Visit: Yes Status: Acute Patient with an ejection fraction that is decreased since May. Cardiology on board, appreciate recommendations. Qualifiers: Qualified Code(s): I42.9 - Cardiomyopathy, unspecified Subjective Principal diagnosis: esrd Interval history: Patient seen and examined in hemodialysis, tolerating well. Denies chest pain states shortness of breath is improved. Denies nausea, vomiting or diarrhea. Is supposed to get a left heart catheter later today. Objective - Vital Signs Vital signs: Vital Signs Temp Pulse Resp BP Pulse Ox 02/27/19 06:55 98.0 F 75 15 124/75 93 02/27/19 04:20 14 98 02/27/19 03:46 97.7 F 100 17 136/76 94 02/26/19 23:40 97.9 F 85 17 132/84 93 02/26/19 21:25 12 93 02/26/19 20:16 93 02/26/19 18:41 97.8 F 94 16 125/57 93 02/26/19 16:28 97.5 F L 79 15 123/70 93 02/26/19 16:16 18 96 02/26/19 11:39 97.4 F L 79 18 121/69 92 Intake and Output 0902/27/19 02/27/19 23:59 07:59 15:59 Intake Total 800 / 1533.1 0 / 0 Balance 800 / 1533.1 0 / 0 Intake: Oral 800 / 1520 0 / 0 Other: Meal NPO Percent of Meal Consumed 50% 0% # Voids 1 Weight 75.6 kg Blood Glucose* 99 105 93 Patient Weight 02/27/19 23:59 Weight 75.6 kg - General Appearance General appearance: Present: well-developed, well-nourished EENT: Present: ATNC, hearing intact, vision intact Neck: Present: supple Respiratory: Present: wheezing Cardiology: Present: normal S1, normal S2 Additional Comments: Generalized edema noted to all 4 extremities, nonpitting. Dialysis Vascular Access: Arteriovenous Fistula thrill: Yes bruit: Yes Gastrointestinal: Present: normoactive bowel sounds, no tenderness, no guarding Integumentary: Present: no rash, warm and dry Neurologic: Present: alert and oriented x3 Musculoskeletal: Present: no deformities, no erythema Psychiatric: Present: mood/affect appropriate, cooperative - Lab 02/27/19 03:28 02/27/19 03:28 Most recent lab results 02/27/19 03:28 Calcium 9.6 Phosphorus 6.3 H Magnesium 2.9 H Consult Discharge Plan - Plan Referrals: [facility] [Primary Care Provider] -
--- NOTE | 2019-02-27 13:07 | Electrocardiograph Report ---
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
[2019-02-27] MEDS ORDERED: 0.9 % Sodium Chloride 1,000 ML ONE (13:11)
[2019-02-27] MEDS ORDERED: *HR* Midazolam HCl 2 MG/2 ML VIAL ONE (13:11)
[2019-02-27] MEDS ORDERED: *HR* FentaNYL (PF) 100 MCG/2 ML VIAL ONE (13:11)
[2019-02-27] MEDS ORDERED: Heparin 1,000 UNITS/500 mL 500 ML ONE (13:11)
[2019-02-27] MEDS ORDERED: *HR* Heparin 10,000 UNIT/10 ML VIAL ONE (13:11)
[2019-02-27] MEDS ORDERED: Nitroglycerin 1,000 MCG/10 ML VIAL IV ONE (13:12)
[2019-02-27] MEDS ORDERED: Iopamidol 125 ML INFUS..BTL ONE ×2 (13:12→14:03)
--- NOTE | 2019-02-27 14:18 | Internal Med Progress Note ---
Hospitalist Progress Note - Encounter Date of Encounter: 02/27/19 Time of Encounter: 08:45 - Subjective Interval History: Mr isbell is scheduled for left heart catheter today. He was dialyzed yesterday he reports improved shortness of breath. GEN: Denies fever, chills or malaise HEENT: Denies headache blurriness, or dysphagia RESP: Denies SOB or cough CV: Denies chest pain or palpitations GI: Denies Nausea, vomiting, diarrhea or constipation Reviewed current in hospital medications with modifications see orders Reviewed Routine labs - Exam Vitals: Temp Pulse Resp BP Pulse Ox 97.5 F L 75 18 131/67 93 02/27/19 13:03 02/27/19 06:55 02/27/19 13:03 02/27/19 13:03 02/27/19 06:55 Exam: GEN: NAD, A&O x 3, Pleasant and conversant, at his bedside SKIN: Pale dry warm acyanotic not jaundice HEART: Irregularly irregular rate and rhythm grade 2/6 holosystolic murmur appreciated today LUNGS: Diminished breath sounds bilaterally with minimal wheeze and crackles, overall non labored ABDOMEN; Soft, tender with some rebound not distended, BS x 4 normactive EXT: 3+ bilat LE edema, Pedal pulses 1+, radial pulses 2+ PSYCH: Mood and affect is appropriate - Assessment and Plan (1) Atrial fibrillation Current Visit: Yes Status: Chronic Assessment and Plan: Rate controlled, dig level of 1.1 Patient went into atrial fibrillation with rapid ventricular response yesterday was started on diltiazem drip has been subsequently discontinued given his poor EF started on very low dose digoxin will trend dig level given his ESRD on HD. Of note TSH was checked 2 days ago and within normal limits (2) Chronic bilateral pleural effusions Current Visit: Yes Status: Acute Assessment and Plan: Dyspnea improved today since dialysis. Hopefully if his cardiac output status post left heart this might help with his bilateral pleural effusion. bilateral pleural effusion is secondary to combination of his anasarca state and poor cardiac output. Thoracentesis is only temporary fix given his anasarca he would likely fill back up. Possible options might be a bilateral Pleurx catheter which itself comes with associated risks. Given the prolonged nature of this pleural effusion and underlying advanced emphysema patient is high risk for pneumothorax AND/ OR trapped lung which may complicate his otherwise already decompensated cardiopulmonary issues. His overall respiration appears to be improved since dialysis, would encourage patient to be up to chair daily and only lay in bed to sleep. Discussed with and patient family to improve his protein intake so as to help mobilize fluids intravascularly. If need be consult to cardiothoracic team or interventional radiology may be considered tomorrow for Pleurx catheter placement (3) Heart failure, systolic, with acute decompensation Current Visit: Yes Status: Acute Assessment and Plan: Patient undergoing workup today to rule out ischemic cardiomyopathy with findings from the left heart catheter Patient reports dyspnea on mild exertion. Last echo in July 2018 revealed EF of 45-50%, repeat echo reveals EF of 30%. Patient was seen by the cardiology team appreciated input is planned for left heart catheter tomorrow since there is concern for ischemic cardiomyopathy. Patient no longer makes urine as such diuretic therapy will be futile, his volume load is being addressed by hemodialysis he was dialyzed yesterday and seems to have correlated his improvement -6.3L during his hospital stay (4) Dyspnea on exertion Current Visit: Yes Status: Acute Assessment and Plan: Most likely secondary to his decompensated heart failure. Last echo in July 2018 revealed EF of 45-50%, repeat echo reveals EF of 30%. Coupled with underlying anasarca related pleural effusion in the setting of advanced COPD. As aforementioned plan does appear to have elevated BNP in the setting of end-stage renal disease. On exam no JVD he does have 3+ bilateral pitting edema of note suspicion was noted to have anasarca. Would not elaborate his workup to date limits between pulmonary causes versus cardiac or causes for his dyspnea he is satting 96% on room air laying comfortably in his hospital bed but still complain of bit short of breath. TTE, chest CT is pending patient had prior chest CT in September 2018 which revealed parachymal and pleura lung disease and emphysema. 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 will trend sodium improved slightly from [phone] he is otherwise asymptomatic (7) Anasarca Current Visit: Yes Status: Acute Assessment and Plan: Likely multifactorial he does have a history of FSGS with proteinuria, daughter requested a comprehensive evaluation, LFTs were remarkable TSH was unremarkable patient anasarca is likely the reason for his bilateral pleural effusion. Discussed with patient and his family that he should improve his protein intake. Given his end-stage renal disease nepro supplement ordered 3 times daily with meals (8) CAD (coronary artery disease) Current Visit: Yes Status: Chronic Assessment and Plan: Denies any chest pain on carvedilol, atorvastatin and not on any antiplatelets however could be due to him being on anticoagulation with apixaban. Followed by cardiology team [facility] planned for today (9) CHF (congestive heart failure) Current Visit: Yes Status: Chronic Assessment and Plan: Recent echo reveals acute decompensated systolic heart failure see plan as above although there were initial concern on volume overload this was not's apparent on physical exam this afternoon he does have 3+ bilateral lower extremity edema which is in line with his nephrotic syndrome and anasarca he has no JVD as aforementioned transthoracic echocardiogram is noted to evaluate for ejection fraction patient admits to being compliant with his fluids and dietary restriction and low-salt diet and also being compliant with his dialysis session Wednesday and Wednesday his who was at the bedside confirmed this fact, his elevated BNP is in line with his end-stage renal disease and likely poor clearance. This is not CHF exacerbation. Had female with reduced ejection fraction based on prior echo from July 45% EF (10) Diabetes mellitus Current Visit: Yes Status: Chronic Assessment and Plan: A1c was 6 continue insulin per protocol with bedside fingersticks and mild coverage POC 93-109 (11) Emphysema lung Current Visit: Yes Status: Chronic Assessment and Plan: CT chest ordered to help delineate any underlying lung pathology, it revealed pleural parenchyma fibrosis present in the right upper lobe and advance emphysema, his DuoNeb was discontinued due to patient having a rapid ventricular response atrial fibrillation now on levo albuterol, continue levofloxacin for COPD exacerbation and treated for 5 days (12) FSGS (focal segmental glomerulosclerosis) with nephrosis Current Visit: Yes Status: Chronic Assessment and Plan: Likely underlying reason for patient's anasarca. Etiology for his FSGS is still unclear DVT Prophylaxis: On apixaban, which was held for left heart catheter resumption per missile control pilot - Time Spent with Patient Total time spent is greater than 50% in coordination of care (as documented) at patient's floor/unit and/or counseling patient: Internal Medicine: Result - Labs CBC & Chem 7: 02/27/19 03:28 02/27/19 03:28 Labs: Short CBC 02/27/19 Range/Units 03:28 WBC 7.0 (4.3-11.1) K/mcL Hgb 11.0 L (12.9-16.9) g/dL Hct 34.2 L (37.5-50.1) % Plt Count 181 (140-400) K/mcL Neutrophils # 5.1 (1.6-8.9) K/mcL BMP 02/27/19 03:28 Sodium 130 L Potassium 5.2 H Chloride 95 L Carbon Dioxide 29 BUN 68 H Creatinine 9.48 H Glucose 102 Calcium 9.6 - ABG Interpretation ABG results: PT/INR, D-dimer PT 12.3 Seconds (9.4-12.1) H 02/24/19 03:43 Consult Discharge Plan - Plan [facility]errals: [facility] [Primary Care Provider] - ____ (1) Atrial fibrillation Qualifiers: Atrial fibrillation type: chronic Qualified Code(s): I48.2 - Chronic atrial fibrillation (8) CAD (coronary artery disease) Qualifiers: Coronary Disease-Associated Artery/Lesion type: [place] artery [place] vs. transplanted heart: [place] heart Associated angina: without angina Qualified Code(s): I25.10 - Atherosclerotic heart disease of [place] coronary artery without angina pectoris (9) CHF (congestive heart failure) Qualifiers: Heart failure type: combined systolic and diastolic Heart failure chronicity: chronic Qualified Code(s): I50.42 - Chronic combined systolic (congestive) and diastolic (congestive) heart failure (10) Diabetes mellitus Qualifiers: Diabetes mellitus type: type 2 Diabetes mellitus group home insulin use: without [employer] use Diabetes mellitus complication status: without complication Qualified Code(s): E11.9 - Type 2 diabetes mellitus without complications (11) Emphysema lung Qualifiers: Emphysema type: panlobular Qualified Code(s): J43.1 - Panlobular emphysema
--- NOTE | 2019-02-27 14:33 | Invasive Diagnostic Lab Proc ---
Name: Clement Dumont Date of Study: 02/27/2019 Date: 1945 Ht: 66.9in Medical Record#: [id number] Age: 73 Wt: 167.55lb Gender: Male BSA: 1.87 Order #: [id number] BMI: 26.33 Physicians Procedure Physician: Jojo Hines MD Referring MD: Referring MD: Procedures Performed Procedure L HRT ART/GRFT ANGIO Pre-Procedure Checklist Informed consent is complete signed and on chart. H&P is on chart. ID band is on and ID verified with patient. Patient NPO for procedure The procedure was described for the patient and questions were answered. ECG is on chart. Plan of Care Patient will tolerate the procedure without complications. Adequate level of comfort will be maintained. Hemodynamics will remain stable Patient will recover from procedure without complications. Respiratory function will be maintained. Cardiac rhythm will remain stable. Patient temperature will be maintained. Patient and/or family have verbalized understanding of the procedure. Patient Education Chief Complaint/Reason for Test: Cardiac Cath Developmental Category: Geriatric (65+ years) Developmentally Appropriate for Age: Yes Learning Barriers: None Education Needs: Procedure Education Method: Verbal Information Taught: Cardiac Cath Educational Evaluation: Able to repeat information Intravenous Access Time IV Size Location DC'd Fluid/Drip Rate Units RN 20g 1 06/17" Patent On Arrival 0.9NaCl ml/hr Allergies meperidine Vital Signs Time BP (mmHg) HR (bpm) O2 Sat. RR (bpm) LOC 01:45 PM / % 5 = Fully awake and oriented or at pre-proc level 01:45 PM / % 4 = Oriented but drowsy 02:00 PM / % 4 = Oriented but drowsy 01:44 PM 142 / 79 109 100 % 5 01:49 PM 147 / 101 92 100 % 21 01:54 PM 129 / 91 75 99 % 14 01:59 PM 129 / 84 115 96 % 13 02:04 PM 124 / 75 93 96 % 13 02:09 PM 119 / 72 78 97 % 16 02:14 PM 114 / 85 85 99 % 13 Procedural Medications Time Medication Dose Units Method Given By 01:45 PM Oxygen 2 L/min nasal cannula Arnol Vogt RN 01:49 PM Versed 1 mg Intravenous Arnol Vogt RN 01:49 PM Fentanyl 50 mcg Intravenous Arnol Vogt RN 01:53 PM Lidocaine 2% 10 ml Subcutaneous Jojo Hines MD ASA Classification: CLASS II- Mild systemic disease (i.e. well-controlled diabetes, hypertension, asthma, cigarette smoking) Michael Score Preprocedure Postprocedure Activity 2- Moves 4 extremities sustained head lift Activity 2- Moves 4 extremities sustained head lift Circulation 2- SBP +/= 20 points of pre-anesthetic level Circulation 2- SBP +/= 20 points of pre-anesthetic level Consciousness 2- Awake and alert oriented x 3 Consciousness 2- Awake and alert oriented x 3 O2 Saturation 2- Able to maintain O2 satruation of 92% on room air O2 Saturation 2- Able to maintain O2 satruation of 92% on room air Respiratory 2- Able to deep breathe and cough well Respiratory 2- Able to deep breathe and cough well Total Score 10 Total Score 10 Contrast Agent: Isovue Diagnostic Contrast: 74 ml Total Contrast: 74 ml Fluoro Dose: 23 mGy Procedure Log Time Note Enter By 01:43 PM Vitals capture started with the following parameters, Patient=Adult, Interval=5 min, Initial Ygobxlsf=405 mmHg, Deflation Rate=3 mmHg, Cuff placed on Right Arm 01:43 PM CathStat 01:44 PM Recorded ECG: HR=96 Condition=Condition 1 01:44 PM OY=784 bpm, CEAY=954/79 mmhg, OwY0=064.0 %, Resp=5 B/min 01:44 PM Pt arrived to lab assistant 2 at 13:44 cedwards :44 PM Patient charges- Angio tray pack, Navilyst 3mm J, Pulse Oximetry and ACIST tubing and transducer cedwards :44 PM IV Supplies used: J loop Angio Cath. ced:44 PM Physician arrived 13:44 cedwards :44 PM ASA Class CLASS II- Mild systemic disease (i.e. well-controlled diabetes, hypertension, asthma, cigarette smoking) ced:44 PM Bandar and greet completed :44 PM Sign in performed according to hospital policy. Informed consent was obtained. ced:45 PM Time: 13:45 Patient comfortable and pain free: Yes ced:45 PM Time: 13:45LOC: 5 = Fully awake and oriented or at pre-proc level ced45 PM Time: 13:45 Oxygen on at 2 L/min per nasal cannula by Arnol Vogt RN cedwards 01:45 PM Procedure start 13:45 cedwards 01:46 PM Recorded ECG: RC=374 Condition=Condition 1 01:48 PM Recorded ECG: HR=96 Condition=Condition 1 01:49 PM HR=92 bpm, VOLI=488/101 mmhg, SsI9=030.0 %, Resp=21 B/min 01:49 PM Time: 13:49 Versed 1 mg Intravenous Given by Arnol Vogt RN cedwards 01:49 PM Time: 13:49 Fentanyl 50 mcg Intravenous Given by Arnol Vogt RN cedwards 01:50 PM Pressure channel 1 zero failed. 01:50 PM Pressure channel 1 zero failed. 01:50 PM Pressure channel 1 zeroed. 01:52 PM Time out was performed according to hospital policy. Conscious sedation and anesthesia was achieved (see medication log with in this report above) cedwards 01:53 PM Time: 13:53 10 ml Lidocaine 2% to right groin Subcutaneous Given by Jojo Hines MD cedwards 01:53 PM Micro-Introducer Kit utilized for sheath placement cedwards 01:54 PM HR=75 bpm, WFGZ=688/91 mmhg, SpO2=99.0 %, Resp=14 B/min 01:54 PM Access obtained by percutaneous puncture. 6Fr 10cm Terumo [place] sheath placed in right Femoral artery. [id number] cedwards 01:54 PM 0.035 145cm Navilyst 3mmJ wire [id number] cedwards 01:54 PM 5Fr FR 4 catheter inserted over the wire [facility] cedwards 01:58 PM Recorded Pressure: Ao, HR=88, Condition=Condition 1 (Aorta) Ao 114/74/94 01:58 PM RCA angiography performed in multiple views. cedwards 01:59 PM JB=368 bpm, EVWZ=595/84 mmhg, SpO2=96.0 %, Resp=13 B/min 02:00 PM SVG to the RPDA angio performed in multiple views. cedwards 02:00 PM Time: 13:45LOC: 4 = Oriented but drowsy cedwards 02:04 PM HR=93 bpm, YWWM=541/75 mmhg, SpO2=96.0 %, Resp=13 B/min 02:04 PM SVG graft to the LAD angio performed in multiple views. cedwards 02:05 PM Catheter removed cedwards 02:05 PM 5Fr FL 4 catheter inserted over the wire [facility] cedwards 02:06 PM LCA angiography performed in multiple views. cedwards 02:06 PM Recorded Pressure: Ao, HR=85, Condition=Condition 1 (Aorta) Ao 97/63/79 02:07 PM Catheter removed cedwards 02:07 PM 5Fr Pigtail catheter inserted over the wire [facility] cedwards 02:07 PM Catheter crossed the aortic valve and was selectively placed in the left ventricle. Pressures recorded on pullback for left heart catheterization. cedwards 02:08 PM Recorded Pressure: LV, HR=85, Condition=Condition 1 (Left Ventricle) LV 99/7/14 02:08 PM Recorded Pressure: LV, Ao, CJ=116, Condition=Condition 1 (Left Ventricle) LV 97/5/18, (Aorta) Ao 110/50/78 02:09 PM HR=78 bpm, FWUV=123/72 mmhg, SpO2=97.0 %, Resp=16 B/min 02:10 PM Catheter removed cedwards 02:10 PM Procedure completed at 14:10 02/27/2019 cedwards 02:10 PM Coronary Dominance: right cedwards 02:11 PM Sign out completed: Radiation Dose 262.8 mGy, 22.6 Gy/cm2 Fluoro Time: 5.3 Isovue 370 - 200ml contrast 74 ml given by Jojo Hines MD. Complications: None. The patient was discharged out of the senior laboratory technician in stable condition. Sedation minutes 25. Cardiac Rehab Consult needed: No. Confirmed administered medications: Yes cedwards 02:11 PM Isovue 370 - 200ml,2 Bottle(s) used. cedwards 02:12 PM Arterial sheath pulled, Mynx closure device used and was Successful [id number] S/N. cedwards 02:12 PM Estimated Blood Loss: minimal cedwards 02:12 PM Post ECG NSR cedwards 02:12 PM Post Blood Pressure 119/72 cedwards 02:13 PM Education needs Procedure, Plan of Care, and Disease Process cedwards 02:13 PM Learning barriers :None cedwards 02:13 PM Education Methods Verbal cedwards 02:13 PM Education evaluation Able to repeat information cedwards 02:13 PM Site status No bleeding/ No Hematoma - Rt Groin as reported by Jojo Hines MD at 14:13 cedwards 02:14 PM Plavix, Effient or Brilinta given No cedwards 02:14 PM HR=85 bpm, ZCUZ=226/85 mmhg, SpO2=99 %, Resp=13 B/min 02:14 PM Delay to floor No cedwards 02:14 PM Complications: None cedwards 02:17 PM Time: 14:00LOC: 4 = Oriented but drowsy cedwards 02:18 PM Lesion found in Proximal RCA. Pre Stenosis: 80 Pre RANDA Flow: cedwards 02:18 PM Lesion found in Mid RCA. Pre Stenosis: 100 Pre RANDA Flow: cedwards 02:18 PM Lesion found in Proximal LAD. Pre Stenosis: 99 Pre RANDA Flow: cedwards 02:18 PM Lesion found in Proximal Circumflex. Pre Stenosis: 40 Pre RANDA Flow: cedwards 02:24 PM Report given to Khalif DIAL Pt taken to 2A Room #14. 14:24 cedwards Complications Complication None None Hemodynamics Pressures Site Systolic/A Wave Diastolic/V Wave Mean AO 114 74 94 AO 97 63 79 LV 99 7 14 LV 97 5 18 AO 110 50 78 Post Procedure Information Blood Pressure: 119/72 mmHg Rhythm: NSR Post procedural instructions were given Closure Device Time Device Success/Fail 02/27/2019 2:19:00 PM MynxGrip Successful Site Checks Time Location Status Staff Sheath In? Note 02:13 PM Rt Groin No bleeding/ No Hematoma Jojo Hines MD Pulses Time Site Pre-Procedure Post-Procedure Note Bilateral DP & PT 1+ 1+ Bilateral radial 2+ 2+ Updated by Dwight Lou RN on 02/27/2019 2:25:38 PM electronically signed on 02/27/2019 2:27:01 PM with status of Final
--- NOTE | 2019-02-27 14:54 | Event Note ---
Date of Encounter: 02/27/19 Time of Encounter: 14:49 - Cardiology Event Note [facility] 02/27: 2/2 patent bypass grafts, severe 2v CAD, no intervention. Recommend continue ASA, BB and statin. Eliquis resumed for Afib anticoagulation. Follow-up with primary tobacco scrap sifter at [facility]. Cardiology will sign off at this time, please re-consult as needed.
[2019-02-27] MEDS: Aspirin Enteric Coated 81 MG Tablet PO SCH (15:02)
[2019-02-27] MEDS: levoFLOXacin 500 MG/100 ML 500 MG/100 ML BAG IVPB ONE (15:10)
[2019-02-27] MEDS: Renal Vitamin 1 CAP CAPSULE PO SCH (18:33)
[2019-02-27] MEDS: *HR* Digoxin 0.125 MG TABLET PO SCH (18:33)
[2019-02-27] MEDS: Melatonin 3 MG TABLET PO SCH (20:14)
[2019-02-27] MEDS: Apixaban 5 MG TABLET PO SCH (20:14)
[2019-02-27] MEDS ORDERED: methylPREDNISolone 125 MG/2 ML VIAL IVP ONE (21:07)
[2019-02-28] MEDS: Insulin LISPRO 300 UNITS/3 ML VIAL SQ SCH ×4 (00:30→16:24)
--- NOTE | 2019-02-28 01:52 | Event Note ---
Date of Encounter: 02/27/19 Time of Encounter: 19:48 Alerted by pts. nurse YOJANA Gaxiola that the pts. daughter Jojo was concerned that the pt. is supposed to discharge tomorrow and she thinks he is not ready to be sent home. Daughter spoke to the pt. and thought he sounded very congested. Daughter lives in [place]. Daughter requested that I assess the patient to determine if he was ready for discharge tomorrow. Daughter was upset that the pt. had not received any steroids during this admission. Patient is currently receiving Levaquin and Xopenex breathing txs. Levaquin is prophylaxis treatment for pts. underlying COPD hx. I went to assess the patient who was seated on the side of the bed. Patient stated that he felt fine and currently had no complaints. Pt. is on 2L O2 via NC. On examination, patient's lungs sound wheezy in all lobes. Patient has hx of COPD but concern was for CHF exacerbation w/BNP >2400 on admission. Patient's chest CT on 02/24 showed small to moderate dependently layering bilateral pleural effusions which have increased in interval, pleuroparenchymal fibrosis pattern in the right upper lobe is stable, and advanced emphysema. Patient is currently asymptomatic and not in any respiratory distress. D/t current wheezing, I ordered a one-time dose of 125 mg Solu-Medrol which was administered. Nurse reported patient's lungs sounded better post-administration. Patient received Lasix (02/24 40 mg IVP at 00:25 and 40 mg PO at 08:11) for concern for CHF exacerbation but has since been discontinued d/t pts. ESRD. I called pts. daughter Jojo at 01:01 to discuss the pt. and his current status. Daughter stated that the pt. was diagnosed with COPD exacerbation by his Resident Care Provider prior to admission as well as pneumonia by his PCP prior to admission. Daughter expressed frustration regarding different diagnoses. I informed the daughter that she was comparing three diagnoses (PCP and Resident Care Provider PRIOR to admission as well as an admission diagnosis which is the most current and what the pt. is actually being treated for at the present time). I informed the pts. daughter that the pt. was admitted w/pulmonary edema and vascular congestion during this admission and was being treated for fluid overload r/t CHF d/t his BNP of 2427, not COPD exacerbation. Daughter continued to tell me that the pt. was diagnosed with COPD exacerbation and pneumonia prior to admission. I informed her that during this admission he was being treated for fluid overload d/t suspected CHF exacerbation, NOT COPD exacerbation. I also informed her that I had administered 125 mg of Solu-Medrol which improved his wheezing. Daughter wanted to know if the pt. was going to be discharged tomorrow. I told her I have nothing to do with his discharge plan and that my role is to care for him and stabilize him overnight. I suggested that she call tomorrow to discuss the discharge plan with the Hospitalist who is covering him during the day. Daughter stated that she leaves for work at 06:00. I suggested she call between 07:15 and 07:30 to find out what the plan is. All questions were answered and addressed. Nurse instructed to continue monitoring the patient closely and alert me immediately of any adverse changes.
[2019-02-28] MEDS: Levalbuterol Neb 1.25 MG/3 ML IH SCH ×4 (04:27→22:42)
[2019-02-28 05:21] LABS: Basophils % 0.2 %; Eosinophils % 0.4 %; Hematocrit 32.3 % (37.5-50.1); Hemoglobin 10.4 g/dL (12.9-16.9); Immature Granulocytes % 0.4 % (0-4); Lymphocytes # 0.4 K/mcL (0.6-4.6); Lymphocytes % 6.3 %; Mean Corpuscular HGB Conc 32.2 g/dL (31.6-35.5); Mean Corpuscular Hemoglobin 31.8 pg (28.0-33.3); Mean Corpuscular Volume 98.8 fL (83.0-100.0); Mean Platelet Volume 10.4 fL (9.4-12.4); Monocytes # 0.1 K/mcL (0.0-1.3); Monocytes % 1.3 %; Neutrophils # 5.1 K/mcL (1.6-8.9); Platelet Count 195 K/mcL (140-400); Red Blood Count 3.27 M/mcL (4.19-5.50); Red Cell Distribution Width 17.2 % (11.5-14.5); Segmented Neutrophils % 91.4 %; White Blood Count 5.6 K/mcL (4.3-11.1)
[2019-02-28 05:47] LABS: Calcium 8.4 mg/dL (8.6-10.3); Magnesium 2.4 mg/dL (1.6-2.6); Potassium 5.4 mEq/L (3.5-5.1)
[2019-02-28 06:01] LABS: Digoxin 1.4 ng/mL (0.8-2.0)
[2019-02-28] MEDS: Aspirin Enteric Coated 81 MG Tablet PO SCH (08:04)
[2019-02-28] MEDS: Renal Vitamin 1 CAP CAPSULE PO SCH (08:04)
[2019-02-28] MEDS: Apixaban 5 MG TABLET PO SCH ×2 (08:04→22:06)
[2019-02-28] MEDS: Calcium Acetate 667 MG CAPSULE PO SCH ×3 (08:05→16:25)
[2019-02-28] MEDS: Budesonide/Formoterol 160/4.5 1 PUFF INH IH SCH ×2 (10:55→22:42)
--- NOTE | 2019-02-28 11:23 | Nephrology Progress Note ---
Date of Encounter: 02/28/19 Time of Encounter: 11:21 - Assessment and Plan (1) ESRD (end stage renal disease) on dialysis Current Visit: Yes Status: Acute HD MWF in [place] with [facility]. HD completed yesterday. 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 Renal vitamins. Renal dose medications. Renal diet. Additional dialysis and ultrafiltration as needed. We will evaluate daily for the need for dialysis or ultrafiltration. (2) Hyponatremia Current Visit: Yes Status: Acute This should improve with dialysis and fluid restriction. 131 today stable. (3) Shortness of breath Current Visit: Yes Status: Acute Reports symptoms are improved. Left heart catheter completed yesterday, reviewed. (4) Atrial fibrillation Current Visit: Yes Status: Chronic Qualifiers: Atrial fibrillation type: chronic Qualified Code(s): I48.2 - Chronic atrial fibrillation (5) Diabetes mellitus Current Visit: Yes Status: Chronic We will defer to the primary team. Qualifiers: Diabetes mellitus type: type 2 Diabetes mellitus usp insulin use: without usp use Diabetes mellitus complication status: without complication Qualified Code(s): E11.9 - Type 2 diabetes mellitus without complications (6) Cardiomyopathy Current Visit: Yes Status: Acute Patient with an ejection fraction that is decreased since May. Cardiology on board, appreciate recommendations. Qualifiers: Qualified Code(s): I42.9 - Cardiomyopathy, unspecified Subjective Principal diagnosis: esrd Interval history: Patient seen and examined. Is sitting up on side of bed. Denies chest pain, denies shortness of breath. Denies nause, vomiting, diarrhea. Is not on any supplemental oxygen at this time. Objective - Vital Signs Vital signs: Vital Signs Temp Pulse Resp BP Pulse Ox 02/28/19 11:06 97.6 F 65 17 125/73 100 02/28/19 10:55 18 93 02/28/19 08:23 94 02/28/19 06:43 98.0 F 100 16 130/80 94 02/28/19 04:29 16 94 02/28/19 03:37 97.6 F 97 16 141/74 94 02/28/19 00:25 97.6 F 95 17 130/70 94 02/28/19 00:15 97.4 F L 95 17 132/70 94 02/27/19 22:29 12 98 02/27/19 21:19 98.8 F 89 17 110/56 93 02/27/19 15:25 14 95 02/27/19 13:03 97.5 F L 18 131/67 02/27/19 12:45 135/79 02/27/19 12:30 134/74 02/27/19 12:15 121/69 02/27/19 12:00 151/69 02/27/19 11:45 148/81 02/27/19 11:30 127/77 Intake and Output 02/27/19 02/28/19 02/28/19 23:59 07:59 15:59 Intake Total 340 / 940 120 / 480 360 / 480 Output Total 0 / 3600 3 / 3 Balance 340 / -2660 117 / 477 360 / 477 Intake: Oral 340 / 340 120 / 480 360 / 480 Output: Urine 0 / 0 3 Other: Meal Dinner Breakfast Percent of Meal Consumed 100% 80% # Voids 1 0 Weight 76.1 kg Blood Glucose* 107 171 178 Patient Weight 02/28/19 23:59 Weight 76.1 kg - General Appearance General appearance: Present: well-developed, well-nourished EENT: Present: ATNC, hearing intact, vision intact Neck: Present: supple Respiratory: Present: wheezing Cardiology: Present: edema (trace bilat lower extremity edema.), normal S1, normal S2 Dialysis Vascular Access: Arteriovenous Fistula thrill: Yes bruit: Yes Gastrointestinal: Present: normoactive bowel sounds, no tenderness, no guarding Integumentary: Present: no rash, warm and dry Neurologic: Present: alert and oriented x3 Musculoskeletal: Present: no deformities, no erythema Psychiatric: Present: mood/affect appropriate, cooperative - Lab 02/28/19 04:48 02/28/19 04:48 Most recent lab results 02/28/19 04:48 Calcium 8.4 L Magnesium 2.4 Consult Discharge Plan - Plan [facility]: [facility] [Primary Care Provider] -
--- NOTE | 2019-02-28 12:53 | Internal Med Progress Note ---
Hospitalist Progress Note - Encounter Date of Encounter: 02/28/19 Time of Encounter: 09:45 - Subjective Interval History: This morning at about 7:15 am was notified by the office staff that my daughter wanted to talk to me, when I got to the phone Mr Dumont daughter Jojo was at the other end. She seems to be upset stating why was her father being dis charged today. She stated she was told of this discharge plan per her conversation with the night time nurse practioner. Of note, the progress notes dated 02/27 made no mention of the discharge plan for today. It appears per nursing note, please see attached below note from the nurse Khalida. Overall patient stated he feels so much better status post dialysis, repeat chest ray of the chest obtained last night revealed small left pleural effusion with no discernible right-sided effusion. 02/27/19 23:23 - Nurse Note by Khalida Jackson Acct Num: [id number] : 1945 Patient Age: 73 Patients daughter Jojo had called in this evening to check on patient. She states "I am a nurse and am concerned that my father is not on steroids since his lungs sound so wet". This RN explained to patients daughter that we typically do not order steroids for fluid overload patients. Patient daughter then stated "he has a COPD exacerbation and he sounds wet so he really needs the steroids." I then explained to daughter how he was getting the IV levaquin for this COPD and that it is being switched to PO now and his lungs have some wheezing but that it was better than it had been. Daughter explained that she lives in [place] and is just concerned that he will be sent home too soon. I explained that I could have the covering PARACHUTE LINE TIER call her to go over his diagnosis and treatment which she was happy with. Jose Luis Petit came and assessed patient who was very wheezy and ordered a one time dose of steroids. He then called the daughter and explained his treatment to her and that patient may still be discharged tomorrow as he is better than when he first arrived. Patient notified of all of the above as well. Also copied is the event note from the nurse practitioner see attached below: Date: 02/28/19 01:20 Initialization Date: 02/28/19 01:20 Date of Encounter: 02/27/19 Time of Encounter: 19:48 Alerted by pts. nurse YOJANA Gaxiola that the pts. daughter Jojo was concerned that the pt. is supposed to discharge tomorrow and she thinks he is not ready to be sent home. Daughter spoke to the pt. and thought he sounded very congested. Daughter lives in [place]. Daughter requested that I assess the patient to determine if he was ready for discharge tomorrow. Daughter was upset that the pt. had not received any steroids during this admission. Patient is currently receiving Levaquin and Xopenex breathing txs. Levaquin is prophylaxis treatment for pts. underlying COPD hx. I went to assess the patient who was seated on the side of the bed. Patient stated that he felt fine and currently had no complaints. Pt. is on 2L O2 via NC. On examination, patient's lungs sound wheezy in all lobes. Patient has hx of COPD but concern was for CHF exacerbation w/BNP >2400 on admission. Patient's chest CT on 02/24 showed small to moderate dependently layering bilateral pleural effusions which have increased in interval, pleuroparenchymal fibrosis pattern in the right upper lobe is stable, and advanced emphysema. Patient is currently asymptomatic and not in any respiratory distress. D/t current wheezing, I ordered a one-time dose of 125 mg Solu-Medrol which was administered. Nurse reported patient's lungs sounded better post-administration. Patient received Lasix (02/24 40 mg IVP at 00:25 and 40 mg PO at 08:11) for concern for CHF exacerbation but has since been discontinued d/t pts. ESRD. I called pts. daughter Jojo at 01:01 to discuss the pt. and his current status. Daughter stated that the pt. was diagnosed with COPD exacerbation by his [employer] prior to admission as well as pneumonia by his PCP prior to admission. Daughter expressed frustration regarding different diagnoses. I informed the daughter that she was comparing three diagnoses (PCP and [employer] PRIOR to admission as well as an admission diagnosis which is the most current and what the pt. is actually being treated for at the present time). I informed the pts. daughter that the pt. was admitted w/pulmonary edema and vascular congestion during this admission and was being treated for fluid overload r/t CHF d/t his BNP of 2427, not COPD exacerbation. Daughter continued to tell me that the pt. was diagnosed with COPD exacerbation and pneumonia prior to admission. I informed her that during this admission he was being treated for fluid overload d/t suspected CHF exacerbation, NOT COPD exacerbation. I also informed her that I had administered 125 mg of Solu-Medrol which improved his wheezing. Daughter wanted to know if the pt. was going to be discharged tomorrow. I told her I have nothing to do with his discharge plan and that my role is to care for him and stabilize him overnight. I suggested that she call tomorrow to discuss the discharge plan with the Hospitalist who is covering him during the day. Daughter stated that she leaves for work at 06:00. I suggested she call between 07:15 and 07:30 to find out what the plan is. All questions w ere answered and addressed. Nurse instructed to continue monitoring the patient closely and alert me immediately of any adverse changes. GEN: Denies fever, chills or malaise HEENT: Denies headache blurriness, or dysphagia RESP: Denies SOB or cough CV: Denies chest pain or palpitations GI: Denies Nausea, vomiting, diarrhea or constipation Reviewed current in hospital medications with modifications see orders Reviewed Routine labs - Exam Vitals: Temp Pulse Resp BP Pulse Ox 97.6 F 65 17 125/73 100 02/28/19 11:06 02/28/19 11:06 02/28/19 11:06 02/28/19 11:06 02/28/19 11:06 Exam: GEN: NAD, A&O x 3, Pleasant and conversant, at his bedside SKIN: Pale dry warm acyanotic not jaundice HEART: Irregularly irregular rate and rhythm grade 2/6 holosystolic murmur appreciated today LUNGS: Diminished breath sounds bilaterally with minimal wheeze and diffuse crackles, overall non labored ABDOMEN; Soft, tender with some rebound not distended, BS x 4 normactive EXT: 3+ bilat LE edema, Pedal pulses 1+, radial pulses 2+ PSYCH: Mood and affect is appropriate - Assessment and Plan (1) Atrial fibrillation Current Visit: Yes Status: Chronic Assessment and Plan: Rate controlled, dig level of 1.1 today up to 1.4, given his esrd will further reduce dose to 0.625 every other day. Patient today does appear to report improvement with regard to his sense of dyspnea which likely is combination of resolution of his chronic bilateral pleural effusion with dialysis plus the benefit of digoxin cardiac contractility given his EF of 30%. Patient went into atrial fibrillation with rapid ventricular response yesterday was started on diltiazem drip has been subsequently discontinued given his poor EF started on very low dose digoxin will trend dig level given his ESRD on HD. Of note TSH was checked 2 days ago and within normal limits (2) Chronic bilateral pleural effusions Current Visit: Yes Status: Acute Assessment and Plan: Chest x-ray obtained last night FINDINGS: There is a small left pleural effusion with mild left basilar compressive atelectasis. There is no discernible right-sided effusion. Given his findings of resolution of his pleural effusion with dialysis discussed with patient's that he needs to have fluids removed during dialysis, he complains of cramps during dialysis and stated this leads to early termination of dialysis. Patient encouraged to improve his oral intake of Nepro/protein supplement the morning of dialysis so he can tolerate dialysis Dyspnea improved today since dialysis. Hopefully if his cardiac output status post left heart this might help with his bilateral pleural effusion. bilateral pleural effusion is secondary to combination of his anasarca state and poor cardiac output. Thoracentesis is only temporary fix given his anasarca he would likely fill back up. Possible options might be a bilateral Pleurx catheter which itself comes with associated risks. Given the prolonged nature of this pleural effusion and underlying advanced emphysema patient is high risk for pneumothorax AND/ OR trapped lung which may complicate his otherwise already decompensated cardiopulmonary issues. His overall respiration appears to be improved since dialysis, would encourage patient to be up to chair daily and only lay in bed to sleep. Discussed with and patient family to improve his protein intake so as to help mobilize fluids intravascularly. If need be consult to cardiothoracic team or interventional radiology may be considered tomorrow for Pleurx catheter placement (3) Heart failure, systolic, with acute decompensation Current Visit: Yes Status: Acute Assessment and Plan: Patient undergoing workup today to rule out ischemic cardiomyopathy with jaleesa estrada from the left heart catheter which reveal severe three-vessel disease status post CABG 12 2 patent bypass graft, per report 99% stenosis in the proximal LAD, 40% stenosis in the proximal circumflex. 80% stenosis in the proximal RCA, 100% stenosis in the mid RCA. Plan is to continue to medically optimize patient. This likely explains his ischemic cardiomyopathy with EF of 30%. Patient and family not ready for palliative talks Patient reports dyspnea on mild exertion. Last echo in July 2018 revealed EF of 45-50%, repeat echo reveals EF of 30%. Patient was seen by the cardiology team appreciated input is planned for left heart catheter tomorrow since there is concern for ischemic cardiomyopathy. Patient no longer makes urine as such diuretic therapy will be futile, his volume load is being addressed by hemodialysis he was dialyzed yesterday and seems to have correlated his improvement -6.3L during his hospital stay (4) Dyspnea on exertion Current Visit: Yes Status: Acute Assessment and Plan: Most likely secondary to his decompensated heart failure. Last echo in July 2018 revealed EF of 45-50%, repeat echo reveals EF of 30%. Coupled with underlying anasarca related pleural effusion in the setting of advanced COPD. As aforementioned plan. does appear to have elevated BNP in the setting of end-stage renal disease. On exam no JVD he does have 3+ bilateral pitting edema of note suspicion was noted to have anasarca. Would not elaborate his workup to date limits between pulmonary causes versus cardiac or causes for his dyspnea he is satting 96% on room air laying comfortably in his hospital bed but still complain of bit short of breath. TTE, chest CT is pending patient had prior chest CT in September 2018 which revealed parachymal and pleura lung disease and emphysema. 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 Repeat chest x-ray last night after 2 dialysis session CXR 02/28: There is a small left pleural effusion with mild left basilar compressive atelectasis. There is no discernible right-sided effusion. Scattered pleuroparenchymal scarring is noted in the right lung base. The heart is enlarged with a stable appearance of pulmonary vasculature. Postop changes of CABG and AICD placement are noted. Compared to CT chest obtained on 02/24 CT/CT chest wo con IMPRESSION: Small to moderate, dependently layered bilateral pleural effusions have increased in the interval. Pleuroparenchymal fibrosis pattern in the right upper lobe is stable. (6) Hyponatremia Current Visit: Yes Status: Acute Assessment and Plan: Acute on chronic, anasarca may be playing a factor. will trend sodium improved slightly from [phone] he is otherwise asymptomatic (7) Anasarca Current Visit: Yes Status: Acute Assessment and Plan: Likely multifactorial he does have a history of FSGS with proteinuria, daughter requested a comprehensive evaluation, LFTs were remarkable TSH was unremarkable patient anasarca is likely the reason for his bilateral pleural effusion. Discussed with patient and his family that he should improve his protein intake. Given his end-stage renal disease nepro supplement ordered 3 times daily with meals (8) CAD (coronary artery disease) Current Visit: Yes Status: Chronic Assessment and Plan: Denies any chest pain on carvedilol, atorvastatin and not on any antiplatelets however could be due to him being on anticoagulation with apixaban. Followed by cardiology team [facility] revealed severe CAD status post CABG with patent graft. (9) CHF (congestive heart failure) Current Visit: Yes Status: Chronic Assessment and Plan: Recent echo reveals acute decompensated systolic heart failure see plan as above. Likely ischemic cardiomyopathy based on recent left heart catheter although there were initial concern on volume overload this was not's apparent on physical exam this afternoon he does have 3+ bilateral lower extremity edema which is in line with his nephrotic syndrome and anasarca he has no JVD as aforementioned transthoracic echocardiogram is noted to evaluate for ejection fraction patient admits to being compliant with his fluids and dietary restriction and low-salt diet and also being compliant with his dialysis session Wednesday and Wednesday his who was at the bedside confirmed this fact, his elevated BNP is in line with his end-stage renal disease and likely poor clearance. This is not CHF exacerbation. Had female with reduced ejection fraction based on prior echo from July 45% EF (10) Diabetes mellitus Current Visit: Yes Status: Chronic Assessment and Plan: A1c was 6 continue insulin per protocol with bedside fingersticks and mild coverage POC 72-107, will further customize his insulin regimen for blood glucose less than 180. Then 2 units per incremental scale (11) Emphysema lung Current Visit: Yes Status: Chronic Assessment and Plan: CT chest ordered to help delineate any underlying lung pathology, it revealed pleural parenchyma fibrosis present in the right upper lobe and advance emphysema, his DuoNeb was discontinued due to patient having a rapid ventricular response atrial fibrillation now on levo albuterol, continue levofloxacin for COPD exacerbation and treated for 5 days (12) FSGS (focal segmental glomerulosclerosis) with nephrosis Current Visit: Yes Status: Chronic Assessment and Plan: Likely underlying reason for patient's anasarca. Etiology for his FSGS is still unclear DVT Prophylaxis: On apixaban, which was held for left heart catheter resumption per motion picture equipment machinist - Time Spent with Patient Total time spent is greater than 50% in coordination of care (as documented) at patient's floor/unit and/or counseling patient: Internal Medicine: Result - Labs CBC & Chem 7: 02/28/19 04:48 02/28/19 04:48 Labs: Short CBC 02/28/19 Range/Units 04:48 WBC 5.6 (4.3-11.1) K/mcL Hgb 10.4 L (12.9-16.9) g/dL Hct 32.3 L (37.5-50.1) % Plt Count 195 (140-400) K/mcL Neutrophils # 5.1 (1.6-8.9) K/mcL BMP 02/28/19 04:48 Sodium 131 L Potassium 5.4 H Chloride 95 L Carbon Dioxide 23 BUN 43 H Creatinine 6.81 H Glucose 201 H Calcium 8.4 L - ABG Interpretation ABG results: PT/INR, D-dimer PT 12.3 Seconds (9.4-12.1) H 02/24/19 03:43 - Impressions Impressions Chest X-Ray 02/28/19 02:21 IMPRESSION: Small left pleural effusion with mild left basilar compressive atelectasis. D/ / Emiliano Flannery MD / Emiliano Flannery MD Interpreting Provider: Emiliano Flannery MD Consult Discharge Plan - Plan [facility]errals: [facility] [Primary Care Provider] - (1) Atrial fibrillation Qualifiers: Atrial fibrillation type: chronic Qualified Code(s): I48.2 - Chronic atrial fibrillation (8) CAD (coronary artery disease) Qualifiers: Coronary Disease-Associated Artery/Lesion type: [place] artery [place] vs. transplanted heart: [place] heart Associated angina: without angina Qualified Code(s): I25.10 - Atherosclerotic heart disease of [place] coronary artery w ithout angina pectoris (9) CHF (congestive heart failure) Qualifiers: Heart failure type: combined systolic and diastolic Heart failure chronicity: chronic Qualified Code(s): I50.42 - Chronic combined systolic (congestive) and diastolic (congestive) heart failure (10) Diabetes mellitus Qualifiers: Diabetes mellitus type: type 2 Diabetes mellitus senior care insulin use: without exterminator helper termite use Diabetes mellitus complication status: without complication Qualified Code(s): E11.9 - Type 2 diabetes mellitus without complications (11) Emphysema lung Qualifiers: Emphysema type: panlobular Qualified Code(s): J43.1 - Panlobular emphysema
[2019-02-28] MEDS ORDERED: *HR* Dextrose 50 % in Water (Syg) 50 ML SYRINGE IVP PRN (13:15)
[2019-02-28] MEDS ORDERED: D5% in Water 1,000 ML IVC PRN (13:15)
[2019-02-28] MEDS ORDERED: Dextrose Gel 15 GM/37.5 ML TUBE PO PRN ×2 (13:15)
[2019-02-28] MEDS ORDERED: *HR* Digoxin 0.125 MG TABLET PO SCH (18:00)
[2019-02-28] MEDS: Melatonin 3 MG TABLET PO SCH (22:07)
[2019-03-01] MEDS: Levalbuterol Neb 1.25 MG/3 ML IH SCH ×2 (04:42→11:08)
[2019-03-01] MEDS ORDERED: 0.9 % Sodium Chloride 250 ML IVC PRN (07:09)
[2019-03-01] MEDS ORDERED: 0.9 % Sodium Chloride 1,000 ML PRIME SCH (07:15)
[2019-03-01] MEDS: Aspirin Enteric Coated 81 MG Tablet PO SCH (08:21)
[2019-03-01] MEDS: Calcium Acetate 667 MG CAPSULE PO SCH ×2 (08:21→12:18)
[2019-03-01] MEDS: Apixaban 5 MG TABLET PO SCH (08:22)
[2019-03-01] MEDS: Renal Vitamin 1 CAP CAPSULE PO SCH (08:22)
[2019-03-01] MEDS: Insulin LISPRO 300 UNITS/3 ML VIAL SQ SCH ×2 (08:23→12:19)
[2019-03-01] MEDS ORDERED: *HR* Digoxin 0.125 MG TABLET PO SCH (09:00)
[2019-03-01] MEDS ORDERED: levoFLOXacin 500 MG TABLET PO SCH (09:00)
[2019-03-01 10:14] LABS: Basophils % 0.2 %; Eosinophils # 0.2 K/mcL (0.0-0.6); Eosinophils % 1.7 %; Hematocrit 29.5 % (37.5-50.1); Immature Granulocytes % 0.4 % (0-4); Lymphocytes # 1.1 K/mcL (0.6-4.6); Lymphocytes % 12.7 %; Mean Corpuscular HGB Conc 33.9 g/dL (31.6-35.5); Mean Corpuscular Hemoglobin 32.7 pg (28.0-33.3); Mean Corpuscular Volume 96.4 fL (83.0-100.0); Monocytes # 0.6 K/mcL (0.0-1.3); Monocytes % 6.7 %; Platelet Count 199 K/mcL (140-400); Red Blood Count 3.06 M/mcL (4.19-5.50); Red Cell Distribution Width 17.2 % (11.5-14.5); Segmented Neutrophils % 78.3 %
[2019-03-01 10:15] LABS: Neutrophils # 7.1 K/mcL (1.6-8.9)
--- NOTE | 2019-03-01 10:15 | Nephrology Progress Note ---
Date of Encounter: 03/01/19 Time of Encounter: 10:14 - Assessment and Plan (1) ESRD (end stage renal disease) on dialysis Current Visit: Yes Status: Acute HD MWF in [place] with [facility]. HD completed 02/27/19. Approximately 1 hr and 15 mins into HD treatment, pt developed non radiating chest pain. BP dropped to 77/44 and 81/55 after 250 cc Bolus. HD aborted. Renal vitamins. Renal dose medications. Renal diet. We will evaluate daily for the need for dialysis or ultrafiltration. (2) Hyponatremia Current Visit: Yes Status: Acute This should improve with dialysis and fluid restriction. (3) Shortness of breath Current Visit: Yes Status: Acute Reports symptoms are improved. Left heart catheter completed, reviewed report. (4) Atrial fibrillation Current Visit: Yes Status: Chronic Qualifiers: Atrial fibrillation type: chronic Qualified Code(s): I48.2 - Chronic atrial fibrillation (5) Diabetes mellitus Current Visit: Yes Status: Chronic We will defer to the primary team. 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 Cardiology on board, appreciate recommendations. Qualifiers: Qualified Code(s): I42.9 - Cardiomyopathy, unspecified Subjective Principal diagnosis: esrd Interval history: Patient seen and examined in HD. Pt has episode of chest pain during HD. Denies nausea, vomiting, diarrhea. Objective - Vital Signs Vital signs: Vital Signs Temp Pulse Resp BP Pulse Ox 03/01/19 06:47 97.7 F 98 18 127/68 91 03/01/19 04:42 16 96 03/01/19 04:19 97.5 F L 101 19 134/75 96 03/01/19 00:25 98.4 F 99 19 133/77 95 02/28/19 22:42 16 95 02/28/19 20:06 98.5 F 94 18 129/82 96 02/28/19 16:08 16 95 02/28/19 15:30 98.2 F 83 16 131/67 93 02/28/19 11:06 97.6 F 65 17 125/73 100 09/17/19 10:55 18 93 Intake and Output 09/17/19 09/18/19 09/18/19 23:59 07:59 15:59 Other: Blood Glucose* 127 81 - General Appearance General appearance: Present: well-developed, well-nourished EENT: Present: ATNC, hearing intact, vision intact Neck: Present: supple Respiratory: Present: wheezing Cardiology: Present: edema (non pitting edema noted to bilat lower extremities.), normal S1, normal S2 Dialysis Vascular Access: Arteriovenous Fistula thrill: Yes bruit: Yes Gastrointestinal: Present: normoactive bowel sounds, no tenderness, no guarding Integumentary: Present: no rash, warm and dry Neurologic: Present: alert and oriented x3 Musculoskeletal: Present: no deformities, no erythema Psychiatric: Present: mood/affect appropriate, cooperative - Lab 03/01/19 09:32 03/01/19 09:32 Consult Discharge Plan - Plan Referrals: [facility]P [Primary Care Provider] -
[2019-03-01 10:24] LABS: Calcium 8.3 mg/dL (8.6-10.3); Potassium 3.8 mEq/L (3.5-5.1)
[2019-03-01] MEDS ORDERED: predniSONE 20 MG TABLET PO SCH (11:01)
[2019-03-01] MEDS: Budesonide/Formoterol 160/4.5 1 PUFF INH IH SCH (11:09)
[2019-03-01 14:30] VITALS: BP 134/81
--- NOTE | 2019-03-01 14:38 | Discharge Summary ---
- NOTES TO OUTPATIENT PROVIDER Notes to Outpatient Provider: Presented with shortness of breath. Left heart catheter with no interventions done. We will give him 3 more days of prednisone considering wheezing. He is also on digoxin which will be continued but t reduced frequency of every 48H Date of Encounter: 03/01/19 Time of Encounter: 10:45 - Discharge Diagnosis (1) Atrial fibrillation Priority: Secondary Status: Chronic Qualifiers: Atrial fibrillation type: chronic Qualified Code(s): I48.2 - Chronic atrial fibrillation (2) Chronic bilateral pleural effusions Priority: Secondary Status: Acute (3) Heart failure, systolic, with acute decompensation Priority: Secondary Status: Acute (4) Dyspnea on exertion Priority: Secondary Status: Acute (5) ESRD (end stage renal disease) on dialysis Priority: Secondary Status: Acute (6) Hyponatremia Priority: Secondary Status: Acute (7) Anasarca Priority: Primary Status: Acute (8) CAD (coronary artery disease) Priority: Secondary Status: Chronic Qualifiers: Coronary Disease-Associated Artery/Lesion type: [place] artery [place] vs. transplanted heart: [place] heart Associated angina: without angina Qualified Code(s): I25.10 - Atherosclerotic heart disease of [place] coronary artery without angina pectoris (9) CHF (congestive heart failure) Priority: Secondary Status: Chronic Qualifiers: Heart failure type: combined systolic and diastolic Heart failure chronicity: chronic Qualified Code(s): I50.42 - Chronic combined systolic (congestive) and diastolic (congestive) heart failure (10) Diabetes mellitus Priority: Secondary Status: Chronic Qualifiers: Diabetes mellitus type: type 2 Diabetes mellitus fdc insulin use: without ad terminal makeup operator use Diabetes mellitus complication status: without complication Qualified Code(s): E11.9 - Type 2 diabetes mellitus without complications (11) Emphysema lung Priority: Secondary Status: Chronic Qualifiers: Emphysema type: panlobular Qualified Code(s): J43.1 - Panlobular emphysema (12) FSGS (focal segmental glomerulosclerosis) with nephrosis Priority: Secondary Status: Chronic Hospital course: Mr. Dumont is a 73 year old male with a past medical history significant for hypertension, hyperlipidemia, atrial fibrillation, diabetes, presented to the hospital because of complaints of shortness of breath. Patient was diagnosed with anasarca which is most likely because of heart failure and in context of ESRD, patient got hemodialysis and his condition improved. Echocardiogram showed reduced ejection fraction of 30%. Cardiology was also consulted and the patient got left heart catheterization which showed patent bypass graft, no interventions were done. Patient is currently on aspirin, statins, beta des, and eliquis. He is advised to continued on maximal medical therapy. Advised to follow-up with the dialysis center. He has history of COPD. He was started on levofloxacin in the hospital because of the COPD exacerbation. Steroids were not given to him. He has visiting today. Considering, wheezing, I will give him 3 more days of steroids. He completed a course of antibiotics. Of note, patient blood pressure pressure dropped today during her dialysis he also complained of chest tightness. His chest tightness improved. He was pain- free for 2-4 hours after the dialysis. His blood pressure was checked again and it was normal. Discussed with the patient that it was most likely because of dialysis and the patient had these because he has had the previous episodes because of the similar complaints. He is alert, oriented, pain-free right now. He is being discharged in a stable condition. Discussed with the tank welder was agreeable with the plan. - Time Spent with Patient Total time spent providing and/or coordinating discharge services: 35 minutes - Discharge Medications Prescriptions: New RX: Aspirin Enteric Coated [Aspirin EC] 81 mg PO DAILY tablet. RX: Digoxin [Lanoxin] 0.0625 mg PO Q48H tablet RX: predniSONE [PredniSONE] 40 mg PO DAILY 3 Days #6 tablet Continued RX: Docusate [Colace] 200 mg PO DAILY RX: Colchicine [Colcrys] 0.6 mg PO DAILY PRN PRN Reason: GOUT FLARE RX: Carvedilol [Coreg] 12.5 mg PO BID RX: GlipiZIDE [Glucotrol] 2.5 mg PO DAILY RX: Budesonide/Formoterol 160/4.5 [Symbicort 160/4.5] 1 puff IH BIDR RX: Albuterol Sulfate [Proair Hfa] 2 puff IH Q6H PRN PRN Reason: Shortness Of Breath RX: Atorvastatin [Lipitor] 20 mg PO HS #30 tablet RX: Melatonin 5 mg PO HS RX: Allopurinol [Zyloprim 100 MG] 100 mg PO DAILY RX: Apixaban [Eliquis] 2.5 mg PO BID RX: Folic Acid/Vit B Complex and C [Dialyvite 800 Chewable Wafer] 800 mcg PO DAILY RX: Furosemide [Lasix] 40 mg PO AD RX: Ondansetron ODT [Zofran ODT] 4 mg PO Q6-8H PRN PRN Reason: Nausea RX: Polyethylene Glycol 3350 [MiraLAX] 17 gm PO DAILY PRN PRN Reason: Constipation RX: Ipratropium/Albuterol Neb [Duoneb] 3 ml IH Q6HR PRN PRN Reason: Shortness Of Breath RX: Calcium Acetate [Phos-LO] 1,334 mg PO TIDWM RX: Calcium Acetate [Phos-LO] 667 mg PO DAILY Discontinued RX: Digoxin [Lanoxin] 0.0625 mg PO DAILY Home Medications: RX: Carvedilol [Coreg] 12.5 mg PO BID 05/27/18 [History] RX: Colchicine [Colcrys] 0.6 mg PO DAILY PRN 05/27/18 [History] RX: Docusate [Colace] 200 mg PO DAILY 05/27/18 [History] RX: Albuterol Sulfate [Proair Hfa] 2 puff IH Q6H PRN 07/28/18 [History] RX: Budesonide/Formoterol 160/4.5 [Symbicort 160/4.5] 1 puff IH BIDR 07/28/18 [History] RX: GlipiZIDE [Glucotrol] 2.5 mg PO DAILY 07/28/18 [History] RX: Atorvastatin [Lipitor] 20 mg PO HS #30 tablet 08/12/18 [Rx] RX: Allopurinol [Zyloprim 100 MG] 100 mg PO DAILY 02/23/19 [History] RX: Apixaban [Eliquis] 2.5 mg PO BID 02/23/19 [History] RX: Calcium Acetate [Phos-LO] 1,334 mg PO TIDWM 02/23/19 [History] RX: Calcium Acetate [Phos-LO] 667 mg PO DAILY 02/23/19 [History] RX: Folic Acid/Vit B Complex and C [Dialyvite 800 Chewable Wafer] 800 mcg PO DAILY 02/23/19 [History] RX: Furosemide [Lasix] 40 mg PO AD 02/23/19 [History] RX: Ipratropium/Albuterol Neb [Duoneb] 3 ml IH Q6HR PRN 02/23/19 [History] RX: Melatonin 5 mg PO HS 02/23/19 [History] RX: Ondansetron ODT [Zofran ODT] 4 mg PO Q6-8H PRN 02/23/19 [History] RX: Polyethylene Glycol 3350 [MiraLAX] 17 gm PO DAILY PRN 02/23/19 [History] RX: Aspirin Enteric Coated [Aspirin EC] 81 mg PO DAILY tablet. 03/01/19 [Rx] RX: Digoxin [Lanoxin] 0.0625 mg PO Q48H tablet 03/01/19 [Rx] RX: predniSONE [PredniSONE] 40 mg PO DAILY 3 Days #6 tablet 03/01/19 [Rx] Allergies/Adverse Reactions: Allergy/AdvReac Type Severity Reaction Status Date / Time meperidine [From Demerol] Allergy Hives Verified 02/23/19 21:53 Date of admission: 02/24/19 08:08 [facility] care physician: [facility] Consults: 02/23/19 22:49 Consult to Nephrology [CONS] Stat Consulting Provider: Kidney Debbie/REYNOLD/AUREA/ROSY Reason for Consult: Dialysis. Fluid overload. Short of breath Call Completed: No 02/24/19 09:45 Consult to Dialysis [CONS] ONCE 02/25/19 10:49 Consult to Cardiology [CONS] Routine Comment: Consulting Provider: Cardiology Debbie Reason for Consult: acute decompensated heart failure Time Notified: 10:50 Call Completed: Yes 02/25/19 12:45 Consult to Dialysis [CONS] ONCE 02/27/19 08:45 Consult to Dialysis [CONS] ONCE 03/01/19 07:15 Consult to Dialysis [CONS] ONCE - Constitutional Vitals: Temp Pulse Resp BP Pulse Ox 97.0 F L 82 16 134/81 95 03/01/19 10:57 03/01/19 10:57 03/01/19 10:57 03/01/19 14:29 03/01/19 10:57 Exam: GEN: NAD, A&O x 3, Pleasant and conversant, at his bedside SKIN: Pale dry warm acyanotic not jaundice HEART: Irregularly irregular rate and rhythm grade 2/6 holosystolic murmur appreciated today LUNGS: Diminished breath sounds bilaterally with minimal wheeze and diffuse crackles, overall non labored ABDOMEN; Soft, tender with some rebound not distended, BS x 4 normactive EXT: 3+ bilat LE edema, Pedal pulses 1+, radial pulses 2+ PSYCH: Mood and affect is appropriate - Patient Status Disposition: Home Health Service Condition: Fair - Discharge Instructions Follow Up With: [facility] [Primary Care Provider] - Forms: ED Satisfaction Letter
--- NOTE | 2019-03-01 14:56 | Physician Discharge Referral ---
Home Health/Hosp Referral Info Transfer to: Home Health Provider in Charge Post Discharge: PCP - Diagnosis (1) Atrial fibrillation Priority: Secondary Status: Chronic (2) Chronic bilateral pleural effusions Priority: Secondary Status: Acute (3) Heart failure, systolic, with acute decompensation Priority: Secondary Status: Acute (4) Dyspnea on exertion Priority: Secondary Status: Acute (5) ESRD (end stage renal disease) on dialysis Priority: Secondary Status: Acute (6) Hyponatremia Priority: Secondary Status: Acute (7) Anasarca Priority: Primary Status: Acute (8) CAD (coronary artery disease) Priority: Secondary Status: Chronic (9) CHF (congestive heart failure) Priority: Secondary Status: Chronic (10) Diabetes mellitus Priority: Secondary Status: Chronic (11) Emphysema lung Priority: Secondary Status: Chronic (12) FSGS (focal segmental glomerulosclerosis) with nephrosis Priority: Secondary Status: Chronic - Respiratory Orders Smoking Cessation: Smoking cessation has been advised. For more information, call the [facility] Tobacco Quit Line at 4-126-DPBI-NOW. - Services Needed Following services are medically necessary services: Nursing, Physical Therapy, Occupational Therapy - Transfer Medications Prescriptions: predniSONE [PredniSONE] 40 mg PO DAILY 3 Days #6 tablet Prescription Printed Home Medications: Carvedilol [Coreg] 12.5 mg PO BID 05/27/18 [History] Colchicine [Colcrys] 0.6 mg PO DAILY PRN 05/27/18 [History] Docusate [Colace] 200 mg PO DAILY 05/27/18 [History] Albuterol Sulfate [Proair Hfa] 2 puff IH Q6H PRN 07/28/18 [History] Budesonide/Formoterol 160/4.5 [Symbicort 160/4.5] 1 puff IH BIDR 07/28/18 [History] GlipiZIDE [Glucotrol] 2.5 mg PO DAILY 07/28/18 [History] Atorvastatin [Lipitor] 20 mg PO HS #30 tablet 08/12/18 [Rx] Allopurinol [Zyloprim 100 MG] 100 mg PO DAILY 02/23/19 [History] Apixaban [Eliquis] 2.5 mg PO BID 02/23/19 [History] Calcium Acetate [Phos-LO] 1,334 mg PO TIDWM 02/23/19 [History] Calcium Acetate [Phos-LO] 667 mg PO DAILY 02/23/19 [History] Folic Acid/Vit B Complex and C [Dialyvite 800 Chewable Wafer] 800 mcg PO DAILY 02/23/19 [History] Furosemide [Lasix] 40 mg PO AD 02/23/19 [History] Ipratropium/Albuterol Neb [Duoneb] 3 ml IH Q6HR PRN 02/23/19 [History] Melatonin 5 mg PO HS 02/23/19 [History] Ondansetron ODT [Zofran ODT] 4 mg PO Q6-8H PRN 02/23/19 [History] Polyethylene Glycol 3350 [MiraLAX] 17 gm PO DAILY PRN 02/23/19 [History] Aspirin Enteric Coated [Aspirin EC] 81 mg PO DAILY tablet. 03/01/19 [Rx] Digoxin [Lanoxin] 0.0625 mg PO Q48H tablet 03/01/19 [Rx] predniSONE [PredniSONE] 40 mg PO DAILY 3 Days #6 tablet 03/01/19 [Rx] Allergies/Adverse Reactions: Allergy/AdvReac Type Severity Reaction Status Date / Time meperidine [From Demerol] Allergy Hives Verified 02/23/19 21:53 Certification: Further, I certify that my clinical findings support that this patient is homebound (i.e. absences from home require considerable and taxing effort and are for medical reasons or [employer] services or infrequently or short duration when for other reasons) because: Homebound Reason: Patient requires assistance of a person or device to safely leave home Attestation: My signature below is to certify that this patient is under my care and that I, or nurse practitioner, or a physician's assistant professor of nursing working with me, has a [id number] encounter with this patient.
[2019-03-02] MEDS ORDERED: predniSONE 20 MG TABLET PO SCH (10:30)
== END 2019-03-01 16:03 | disposition home health service (06) | DRG 286 ==
LOC: EMEROOARM 21:06 → 2ANU 21:06 → SUATTDRO 02-24 08:08
PROVIDERS: ADMIT Internal Medicine; ATTEND Internal Medicine

== ENCOUNTER 2019-03-07 08:22 | Inpatient (IN) ==
--- NOTE | 2019-03-07 08:25 | Emergency Department Note ---
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 He takes Eloquis and states he had a recent heart catheterization at this facility. There is no history of chest pain or acute shortness of breath. The patient usually wears oxygen at home and has known history of COPD. There is no history of acute abdominal pain vomiting diarrhea or bleeding of any sort. He is a dialysis patient. He states that he did not have significant swelling in the right lower extremity and in the groin and medial thigh area until yesterday when he had increasing swelling and pain. There is no history of coldness blueness numbness or weakness to lower extremities. He states she usually has swelling in the legs bilaterally. The patient denies any trauma to the right lower extremity otherwise. There is no history of headache confusion or unilateral arm or leg weakness or numbness. The extremities are not been cool or blue distally. - Related Data Home Medications Medication Instructions Recorded Confirmed Carvedilol [Coreg] 12.5 mg PO BID 05/27/18 03/07/19 Colchicine [Colcrys] 0.6 mg PO DAILY PRN 05/27/18 03/07/19 Docusate [Colace] 200 mg PO DAILY 05/27/18 03/07/19 Albuterol Sulfate [Proair Hfa] 2 puff IH Q6H PRN 07/28/18 03/07/19 Budesonide/Formoterol 160/4.5 1 puff IH BIDR 07/28/18 03/07/19 [Symbicort 160/4.5] GlipiZIDE [Glucotrol] 2.5 mg PO DAILY 07/28/18 03/07/19 Allopurinol [Zyloprim 100 MG] 100 mg PO DAILY 02/23/19 03/07/19 Apixaban [Eliquis] 2.5 mg PO BID 02/23/19 03/07/19 Calcium Acetate [Phos-LO] 1,334 mg PO TIDWM 02/23/19 03/07/19 Calcium Acetate [Phos-LO] 667 mg PO DAILY 02/23/19 03/07/19 Folic Acid/Vit B Complex and C 800 mcg PO DAILY 02/23/19 03/07/19 [Dialyvite 800 Chewable Wafer] Furosemide [Lasix] 40 mg PO AD 02/23/19 03/07/19 Ipratropium/Albuterol Neb [Duoneb] 3 ml IH Q6HR PRN 02/23/19 03/07/19 Melatonin 5 mg PO HS 02/23/19 03/07/19 Ondansetron ODT [Zofran ODT] 4 mg PO Q6-8H PRN 02/23/19 03/07/19 Polyethylene Glycol 3350 [MiraLAX] 17 gm PO DAILY PRN 02/23/19 03/07/19 Previous Rx's Medication Instructions Recorded Atorvastatin [Lipitor] 20 mg PO HS #30 tablet 08/12/18 Aspirin Enteric Coated [Aspirin EC] 81 mg PO DAILY tablet. 03/01/19 Digoxin [Lanoxin] 0.0625 mg PO Q48H tablet 03/01/19 predniSONE [PredniSONE] 40 mg PO DAILY 3 Days #6 tablet 03/01/19 Allergies Allergy/AdvReac Type Severity Reaction Status Date / Time meperidine [From Demerol] Allergy Hives Verified 02/23/19 21:53 All systems ED: reviewed and negative except as stated. Past Medical History - Past Medical History Medical history: Reports: atrial fibrillation, cardiomyopathy, CHF, coronary artery disease, hypertension, renal disease Surgical history: Reports: coronary bypass (CABG), herniorrhaphy, pacemaker/AICD Psychiatric history: Reports: no psych history - Social History Smoking Status: Never smoker Smokeless Tobacco Status: No Alcohol use: Reports: none Drug use: Reports: none Physical Exam - General Limitations: no limitations General appearance: alert, in no apparent distress - Head Head exam: atraumatic, normocephalic, normal inspection - Eye Eye exam: Present: normal appearance, PERRL, EOMI. Absent: scleral icterus, conjunctival injection, nystagmus - ENT ENT exam: normal exam, normal oropharynx, mucous membranes moist, normal external ear exam - Neck Neck exam: Present: normal inspection, full ROM, trachea midline - Chest Chest inspection: Present: symmetric chest wall rise. Absent: tenderness - Respiratory Respiratory exam: Present: prolonged expiratory phase. Absent: respiratory distress - Cardiovascular Cardiovascular exam: Present: regular rate, normal rhythm, normal heart sounds - Abdominal Exam Abdominal exam: Present: soft, Non-Tender, normal bowel sounds. Absent: tenderness, distention, guarding, rebound, rigidity - Extremities Exam Extremities exam: Present: pedal edema, other (The upper extremities are warm and well-perfused and show no evidence of acute trauma with a good range of motion throughout. The right lower extremity shows significant bruising and sw elling and hematoma formation in the right groin and entire right medial thigh area. No brittany bony or joint trauma appreciated. The lower extremities show an element of edema slightly worse on the right, the left lower extremity shows a good range of motion throughout without evidence of injury. The extremities are warm distally and generally well perfused however it is difficult to palpate the patient's right dorsalis pedis pulse.) Course Vital Signs Temperature 97.7 F 03/07/19 08:30 Pulse Rate 88 03/07/19 08:30 Respiratory Rate 17 03/07/19 08:30 Blood Pressure 128/69 03/07/19 08:30 O2 Sat by Pulse Oximetry 97 03/07/19 08:30 Temperature 97.7 F 03/07/19 11:26 Pulse Rate 76 03/07/19 11:26 Respiratory Rate 14 03/07/19 11:26 Blood Pressure 123/66 03/07/19 11:26 O2 Sat by Pulse Oximetry 94 03/07/19 11:26 Oxygen Delivery Oxygen Delivery Nasal Cannula Medical Decision Making - [facility] Narrative Medical decision making narrative: The patient reports emergency department describing right lower extremity swelling in the medial thigh and leg areas with significant bruising. He is anticoagulated and had a recent heart catheterization. The patient's hemoglobin and strep to 8.4, CT scan report describes a pseudoaneurysm as well as hematoma. The patient's troponin is somewhat elevated, his EKG shows atrial fibrillation, no acute ST elevations. He does not describe chest pain. Pleural effusions are noted which may be chronic. The patient wears oxygen and has a history of COPD. He was treated for pain in the emergency department. Based on the patient's findings of pseudoaneurysm with hematoma elevated troponin and anemia, I thought it would be appropriate to admit the patient to the hospital. I did consult with the hospitalist on-call who has accepted the patient to their care. Dr. Montesinos/vascular surgery was also consulted, he came to the emergency department to evaluate the patient and recommended surgical intervention. I also spoke with Dr. Hines the patient's personal business intelligence administrator regarding the patient's condition and admission. The patient is currently stable pending further evaluation and treatment via the surgical medical and cardiology teams. - Lab Data Lab results reviewed: Yes I reviewed the patient's lab results. Result diagrams: 03/07/19 08:40 03/07/19 08:40 Lab Results 03/07/19 03/07/19 03/07/19 Range/Units 08:40 08:40 08:40 WBC 12.4 H (4.3-11.1) K/mcL RBC 2.57 L (4.19-5.50) M/mcL Hgb 8.4 L D (12.9-16.9) g/dL Hct 26.3 L (37.5-50.1) % MCV 102.3 H (83.0-100.0) fL MCH 32.7 (28.0-33.3) pg MCHC 31.9 (31.6-35.5) g/dL RDW 18.1 H (11.5-14.5) % Plt Count 257 (140-400) K/mcL MPV 10.1 (9.4-12.4) fL Immature Gran % 0.6 (0-4) % Seg Neutrophils % 80.5 % Lymphocytes % 9.6 % Monocytes % 7.5 % Eosinophils % 1.5 % Basophils % 0.3 % Neutrophils # 10.0 H (1.6-8.9) K/mcL Lymphocytes # 1.2 (0.6-4.6) K/mcL Monocytes # 0.9 (0.0-1.3) K/mcL Eosinophils # 0.2 (0.0-0.6) K/mcL Basophils # 0.0 (0.0-0.2) K/mcL PT (9.4-12.1) Seconds INR APTT (26.0-36.0) Seconds Sodium 135 L (136-145) mEq/L Potassium 4.1 (3.5-5.1) mEq/L Chloride 96 L (98-107) mEq/L Carbon Dioxide 28 (23-29) mEq/L BUN 83 H (8-23) mg/dL Creatinine 8.03 H (0.70-1.30) mg/dL Est GFR ( Amer) 8 L (> 60) Est GFR (Non-Af Amer) 7 L (> 60) BUN/Creatinine Ratio 10 (6-26) Glucose 97 (70-105) mg/dL Calculated Osmolality 305 H (280-300) Lactic Acid 1.5 (0.5-2.2) mmol/L Calcium 6.8 L (8.6-10.3) mg/dL Total Bilirubin 0.4 (0.3-1.0) mg/dL AST 22 (13-39) Units/L ALT 14 (7-52) Units/L Alkaline Phosphatase 36 (34-104) Units/L Creatine Kinase 155 (30-223) Units/L Troponin I 0.11 H* (< 0.04) ng/mL B-Natriuretic Peptide (Less than 100) pg/mL Serum Total Protein 4.6 L (6.4-8.9) g/dL Albumin 2.4 L (3.5-5.7) g/dL Globulin 2.2 L (2.4-3.5) g/dL Albumin/Globulin Ratio 1.1 (1.1-2.2) 03/07/19 03/07/19 Range/Units 08:40 08:40 WBC (4.3-11.1) K/mcL RBC (4.19-5.50) M/mcL Hgb (12.9-16.9) g/dL Hct (37.5-50.1) % MCV (83.0-100.0) fL MCH (28.0-33.3) pg MCHC (31.6-35.5) g/dL RDW (11.5-14.5) % Plt Count (140-400) K/mcL MPV (9.4-12.4) fL Immature Gran % (0-4) % Seg Neutrophils % % Lymphocytes % % Monocytes % % Eosinophils % % Basophils % % Neutrophils # (1.6-8.9) K/mcL Lymphocytes # (0.6-4.6) K/mcL Monocytes # (0.0-1.3) K/mcL Eosinophils # (0.0-0.6) K/mcL Basophils # (0.0-0.2) K/mcL PT 12.2 H (9.4-12.1) Seconds INR 1.1 APTT 25.9 L (26.0-36.0) Seconds Sodium (136-145) mEq/L Potassium (3.5-5.1) mEq/L Chloride (98-107) mEq/L Carbon Dioxide (23-29) mEq/L BUN (8-23) mg/dL Creatinine (0.70-1.30) mg/dL Est GFR ( Amer) (> 60) Est GFR (Non-Af Amer) (> 60) BUN/Creatinine Ratio (6-26) Glucose (70-105) mg/dL Calculated Osmolality (280-300) Lactic Acid (0.5-2.2) mmol/L Calcium (8.6-10.3) mg/dL Total Bilirubin (0.3-1.0) mg/dL AST (13-39) Units/L ALT (7-52) Units/L Alkaline Phosphatase (34-104) Units/L Creatine Kinase (30-223) Units/L Troponin I (< 0.04) ng/mL B-Natriuretic Peptide 1484 H (Less than 100) pg/mL Serum Total Protein (6.4-8.9) g/dL Albumin (3.5-5.7) g/dL Globulin (2.4-3.5) g/dL Albumin/Globulin Ratio (1.1-2.2) - Radiology Data Radiology results reviewed: Yes I reviewed the patient's radiology results.
[2019-03-07] MEDS ORDERED: Isovue-370 500 ML BOTTLE IVP ONE (08:34)
[2019-03-07] MEDS ORDERED: Morphine Sulfate 2 MG/ML SYRINGE IVP ONE (08:38)
[2019-03-07] MEDS ORDERED: Ondansetron 4 MG/2 ML VIAL IVP ONE (08:38)
[2019-03-07 08:59] LABS: Basophils % 0.3 %; Eosinophils # 0.2 K/mcL (0.0-0.6); Eosinophils % 1.5 %; Hematocrit 26.3 % (37.5-50.1); Immature Granulocytes % 0.6 % (0-4); Lymphocytes # 1.2 K/mcL (0.6-4.6); Lymphocytes % 9.6 %; Mean Corpuscular HGB Conc 31.9 g/dL (31.6-35.5); Mean Corpuscular Hemoglobin 32.7 pg (28.0-33.3); Mean Corpuscular Volume 102.3 fL (83.0-100.0); Mean Platelet Volume 10.1 fL (9.4-12.4); Monocytes # 0.9 K/mcL (0.0-1.3); Monocytes % 7.5 %; Platelet Count 257 K/mcL (140-400); Red Blood Count 2.57 M/mcL (4.19-5.50); Red Cell Distribution Width 18.1 % (11.5-14.5); Segmented Neutrophils % 80.5 %; White Blood Count 12.4 K/mcL (4.3-11.1)
[2019-03-07 09:00] LABS: Hemoglobin 8.4 g/dL (12.9-16.9)
[2019-03-07 09:14] LABS: INR 1.1; Prothrombin Time 12.2 Seconds (9.4-12.1)
[2019-03-07 09:15] LABS: Albumin 2.4 g/dL (3.5-5.7); Albumin/Globulin Ratio 1.1 (1.1-2.2); Bilirubin,Total 0.4 mg/dL (0.3-1.0); Calcium 6.8 mg/dL (8.6-10.3); Globulin 2.2 g/dL (2.4-3.5); Potassium 4.1 mEq/L (3.5-5.1); Total Protein 4.6 g/dL (6.4-8.9)
[2019-03-07 09:17] LABS: Activated Partial Thrombo Time 25.9 Seconds (26.0-36.0)
[2019-03-07 09:20] LABS: Troponin I 0.11 ng/mL (< 0.04)
[2019-03-07] MEDS ORDERED: *HR* HYDROmorphone (PF) 1 MG/ML SYRINGE IVP ONE (10:05)
--- NOTE | 2019-03-07 11:54 | Anesthesia Evaluation PreOp ---
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/ICD ([employer] pacemaker/AICD) Pulmonary History: Former smoker (quit 30 years), Asthma, COPD, Snore, Other (lung CA) CONSULTING ENGINEER History: Denies Any Significant HX Other Medical History: Renal (CKD stage 3), Diabetes Type II Anesthesia History: No Prior Anesthetic Complications, Past Anesthesia Alcohol Use: none Drug use: none Medications and Allergies Carvedilol [Coreg] 12.5 mg PO BID 05/27/18 [History] Colchicine [Colcrys] 0.6 mg PO DAILY PRN 05/27/18 [History] Docusate [Colace] 200 mg PO DAILY 05/27/18 [History] Albuterol Sulfate [Proair Hfa] 2 puff IH Q6H PRN 07/28/18 [History] Budesonide/Formoterol 160/4.5 [Symbicort 160/4.5] 1 puff IH BIDR 07/28/18 [History] GlipiZIDE [Glucotrol] 2.5 mg PO DAILY 07/28/18 [History] Atorvastatin [Lipitor] 20 mg PO HS #30 tablet 08/12/18 [Rx] Allopurinol [Zyloprim 100 MG] 100 mg PO DAILY 02/23/19 [History] Apixaban [Eliquis] 2.5 mg PO BID 02/23/19 [History] Calcium Acetate [Phos-LO] 1,334 mg PO TIDWM 02/23/19 [History] Calcium Acetate [Phos-LO] 667 mg PO DAILY 02/23/19 [History] Folic Acid/Vit B Complex and C [Dialyvite 800 Chewable Wafer] 800 mcg PO DAILY 02/23/19 [History] Furosemide [Lasix] 40 mg PO AD 02/23/19 [History] Ipratropium/Albuterol Neb [Duoneb] 3 ml IH Q6HR PRN 02/23/19 [History] Melatonin 5 mg PO HS 02/23/19 [History] Ondansetron ODT [Zofran ODT] 4 mg PO Q6-8H PRN 02/23/19 [History] Polyethylene Glycol 3350 [MiraLAX] 17 gm PO DAILY PRN 02/23/19 [History] Aspirin Enteric Coated [Aspirin EC] 81 mg PO DAILY tablet. 03/01/19 [Rx] Digoxin [Lanoxin] 0.0625 mg PO Q48H tablet 03/01/19 [Rx] predniSONE [PredniSONE] 40 mg PO DAILY 3 Days #6 tablet 03/01/19 [Rx] Allergy/AdvReac Type Severity Reaction Status Date / Time meperidine [From Demerol] Allergy Hives Verified 02/23/19 21:53 - Meds/Allergy Pre-op Review Medications Reviewed: Yes Allergies Reviewed: Yes Beta Blockers on Current Med List: Yes If Beta Blockers taken, Date/Time (Last Dose taken): 03/06/2019 at 0900 Anesthesia Results - Labs 03/07/19 08:40 03/07/19 08:40 - Imaging EKG: report reviewed (02/26/2019 ATRIAL FIBRILLATION WITH RAPID VENTRICULAR RESPONSE WITH ABERRANT CONDUCTION OR VENTRICULAR PREMATURE COMPLEXES LOW QRS VOLTAGE IN EXTREMITY LEADS Poor R wave progression) Chest x-ray: report reviewed (03/07/2019 IMPRESSION: Improved aeration of the left lung base with persistent left retrocardiac opacity favored to represent atelectasis although infection is not excluded.) Additional studies: 02/27/2019 LEFT HEART CATH W/ GRAFTS Indications: Cardiomyopathy Impressions: There is severe three vessel coronary artery disease. S/P CABG 2 of 2 patent bypass grafts. Recommendations: Optimal medical therapy of patient's disease. Aggressive risk factor modification. 02/24/2019 Echo Impressions: LVEF 30%. Global and regional LV systolic dysfunction. Indeterminate diastolic function. Mildly dilated left ventricle. Definity echo contrast was used. There is no LV thrombus. Normal right ventricular structure and function. Severe bi-atrial enlargement. Mild-moderate mitral regurgitation. Moderate tricuspid regurgitation. Mild-moderate pulmonary hypertension. Mild pulmonic regurgitation. A device lead was visualized in the right atrium and right ventricle. A pleural effusion is present. 08/07/2018 Limited Echo Impressions: [id number]%. There is no LV thrombus. Anesthesia Exam Vital Signs/O2 Sat, Most Current Temp Pulse Resp BP Pulse Ox 97.7 F 76 14 123/66 94 03/07/19 11:26 03/07/19 11:26 03/07/19 11:26 03/07/19 11:03/07/19 11:26 Height: 5'7''/1.7m Weight: 170 lbs/77 kg NPO (# of Hours): 8 Pain Scale: 0 Pain Scale Used: Numeric (1 - 10) - HEENT Pupil (Motor): EOMI Mallampati: II Teeth: Normal, Missing Denture Type: Upper: Complete Oral Opening: Greater than 3 - CONSULTING ENGINEER LOC: Oriented CONSULTING ENGINEER Motor: Normal RUE, Normal LUE, Normal RLE, Normal LLE, Normal Face CONSULTING ENGINEER Sensory: Normal: RUE, LUE, RLE, LLE, Face - Cardiac Rhythm: Regular Murmur: None - Pulmonary Breath Sounds: bilateral Clear Respiratory Effort: Symmetrical Anesthesia Assess/Plan ASA Score: 4, E Level of consciousness: Cooperative, Oriented, Tranquil Anesthetic Plan: General Monitoring Plan: Standard Monitors Recovery Plan: PACU
[2019-03-07] MEDS ORDERED: Heparin 1,000 UNITS/500 mL 500 ML ONE (11:58)
--- NOTE | 2019-03-07 12:00 | Vascular/Endovasc Consult Note ---
Date of Encounter: 03/07/19 Time of Encounter: 11:30 Assessment and Plan (1) Laceration of right femoral artery Current Visit: Yes Status: Acute The patient recently underwent a left heart catheterization. He presented to the emergency room today with progressive pain, swelling, tenderness and ecchymosis of the right groin. A CT angiogram revealed a right femoral pseudoaneurysm arising from the distal common femoral artery or proximal superficial femoral artery. Given the size, rapid expansion, symptoms and location of the pseudoaneurysm, open repair is recommended. The risks, benefits and alternatives were discussed and all questions were answered. The patient expressed understanding wishes to proceed. (2) Atrial fibrillation Current Visit: Yes Status: Chronic Qualifiers: Atrial fibrillation type: chronic Qualified Code(s): I48.2 - Chronic atrial fibrillation (3) ESRD (end stage renal disease) on dialysis Current Visit: No Status: Chronic (4) Essential hypertension Current Visit: Yes Status: Chronic (5) Mixed hyperlipidemia Current Visit: Yes Status: Chronic - History of Present Illness Consult date: 03/07/19 Requesting physician: Tony Levine Consult reason: Right femoral artery hemorrhage Chief complaint: Right thigh pain, swelling and bruising History of present illness: Mr. Dumont is a 73 year old male with history atrial fibrillation, end-stage renal disease on hemodialysis, coronary artery disease, diabetes, hypertension and hyperlipidemia. The patient underwent a left heart catheterization was in the 02/27/2019. He tolerated the procedure well. The patient states overnight began to develop progressive pain and swelling and tenderness with bruising of the right thigh. HEENT the emergency room for further evaluation. He is found have a large pseudoaneurysm as well as a large hematoma of the right thigh. Vascular surgery was counseled for further evaluation. He has remained hemodynamically stable. Other than his pain and tenderness he denies any other medical complaints at this time he denies chest pain or shortness of breath. Past Med Surg Social Fam HX - Past Medical History Medical history: atrial fibrillation, cardiomyopathy, CHF, coronary artery disease, hypertension, renal disease Additional medical history: gout Psychiatric history: no psych history - Past Surgical History Surgical History: coronary bypass (CABG), herniorrhaphy, pacemaker/AICD Additional surgical history: bowel resection - Social History Smoking Status: Never smoker Smokeless Tobacco Status: No Alcohol use: none Drug use: none - Family History Father Hx Family Cardiac Disorders: Yes ([place]) Grandfather Hx Family Cardiac Disorders: Yes Medications and Allergies Carvedilol [Coreg] 12.5 mg PO BID 05/27/18 [History] Colchicine [Colcrys] 0.6 mg PO DAILY PRN 05/27/18 [History] Docusate [Colace] 200 mg PO DAILY 05/27/18 [History] Albuterol Sulfate [Proair Hfa] 2 puff IH Q6H PRN 07/28/18 [History] Budesonide/Formoterol 160/4.5 [Symbicort 160/4.5] 1 puff IH BIDR 07/28/18 [History] GlipiZIDE [Glucotrol] 2.5 mg PO DAILY 07/28/18 [History] Atorvastatin [Lipitor] 20 mg PO HS #30 tablet 08/12/18 [Rx] Allopurinol [Zyloprim 100 MG] 100 mg PO DAILY 02/23/19 [History] Apixaban [Eliquis] 2.5 mg PO BID 02/23/19 [History] Calcium Acetate [Phos-LO] 1,334 mg PO TIDWM 02/23/19 [History] Calcium Acetate [Phos-LO] 667 mg PO DAILY 02/23/19 [History] Folic Acid/Vit B Complex and C [Dialyvite 800 Chewable Wafer] 800 mcg PO DAILY 02/23/19 [History] Furosemide [Lasix] 40 mg PO AD 02/23/19 [History] Ipratropium/Albuterol Neb [Duoneb] 3 ml IH Q6HR PRN 02/23/19 [History] Melatonin 5 mg PO HS 02/23/19 [History] Ondansetron ODT [Zofran ODT] 4 mg PO Q6-8H PRN 02/23/19 [History] Polyethylene Glycol 3350 [MiraLAX] 17 gm PO DAILY PRN 02/23/19 [History] Aspirin Enteric Coated [Aspirin EC] 81 mg PO DAILY tablet. 03/01/19 [Rx] Digoxin [Lanoxin] 0.0625 mg PO Q48H tablet 03/01/19 [Rx] predniSONE [PredniSONE] 40 mg PO DAILY 3 Days #6 tablet 03/01/19 [Rx] Allergy/AdvReac Type Severity Reaction Status Date / Time meperidine [From Demerol] Allergy Hives Verified 02/23/19 21:53 All Systems Review: The remainder of the systems were reviewed and are negative - Constitutional Constitutional: no chills, no fever(s) - Cardiovascular Cardiovascular: no chest pain at rest, no dyspnea at rest Exam Vital Signs, Last 4 Hours Temp Pulse Resp BP Pulse Ox 03/07/19 11:26 97.7 F 76 14 123/66 94 03/07/19 10:04 89 16 121/90 98 03/07/19 08:30 97.7 F 88 17 128/69 97 General: Present: Conversant, No Apparent Distress HEENT: Present: Atraumatic, Pupils equal Neck: Absent: JVD, Lymphadenopathy Cardiac: Present: Irregular Rhythm Lungs: Present: Normal Breath Sounds Neuro: Present: Alert and responsive, No focal deficits noted, Motor nerves grossly intact, Sensory nerves grossly intact Abdomen: Present: Soft, Non-tender. Absent: Masses Vascular: Present: Normal capillary refill, Pulse, normal, Other (Since it ecchymosis and swelling involving the right proximal to mid thigh, pulsatile mass noted at the right infrainguinal region). Absent: Cyanosis, Edema Skin: Present: No rashes noted on visualized skin Musculoskeletal: Present: No Chest Wall Tenderness Consult Discharge Plan - Plan [facility]errals: [facility] [Primary Care Provider[facility] -
[2019-03-07] MEDS ORDERED: Morphine Sulfate 2 MG/ML SYRINGE IVP PRN (12:14)
[2019-03-07] MEDS ORDERED: *HR* Succinylcholine 200 MG/10 ML VIAL IVP ONE (12:19)
[2019-03-07] MEDS ORDERED: *HR* PHENYLEPHRINE 1,000 MCG/10 ML SYRINGE IVP ONE (12:19)
[2019-03-07] MEDS ORDERED: *HR* FentaNYL (PF) 100 MCG/2 ML VIAL ONE (12:19)
[2019-03-07] MEDS ORDERED: Lidocaine -MPF 2% 2 ML VIAL ONE (12:19)
[2019-03-07] MEDS ORDERED: Ondansetron 4 MG/2 ML VIAL ONE (12:19)
[2019-03-07] MEDS ORDERED: Dexamethasone 4 MG/ML VIAL ONE (12:19)
[2019-03-07] MEDS ORDERED: Lidocaine HCL 4 ML Topical Solution (Laryng-O-Jet Kit Sterile Pak) TP ONE (12:19)
[2019-03-07] MEDS ORDERED: *HR* Rocuronium Bromide 50 MG/5 ML VIAL ONE (12:19)
[2019-03-07] MEDS ORDERED: *HR* Propofol 200 MG/20 ML VIAL IVP ONE (12:19)
[2019-03-07] MEDS ORDERED: Vancomycin 1,000 MG VIAL ONE (12:20)
[2019-03-07] MEDS ORDERED: Naloxone 0.4 MG/ML INJ IVP PRN ×2 (12:25→15:36)
[2019-03-07] MEDS ORDERED: EPHEDrine 50 MG/ML VIAL ONE (13:13)
--- NOTE | 2019-03-07 14:40 | Operative Note ---
Date of procedure: 03/07/19 Pre-op diagnosis: Right femoral artery hemorrhage Post-op diagnosis: same Procedure: Right groin exploration with direct repair of right superficial femoral artery Complications: None Anesthesia: GETA Surgeon: Ashish Montesinos Was there an assistant nurse manager present: No Estimated blood loss (cc): 100 Specimen: None Condition: stable Disposition: PACU Procedure in Detail: Indications: The patient is a 73-year-old male with history of coronary artery disease who underwent a left heart catheterization last week. The patient presents emergency room today with persistent pain, swelling, tenderness in the pulsatile mass in the right groin. CT angiogram revealed evidence of a right femoral artery pseudoaneurysm. Due to the rapidly expanding nature of his pseudoaneurysm and ongoing pain surgical repair was recommended. Procedure: The patient was identified in the preoperative area. The risks, benefits and alternatives of the procedure were discussed with him and all questions were answered. The patient was then taken operating room and placed in the supine position on the operating table. After the induction of general endotracheal anesthesia he was prepped and draped in normal sterile fashion. An oblique incision was made over the right femoral vessels sharply. Hemostasis was obtained through electrocautery. Through a process of blunt, sharp R dissection the skin and subcutaneous tissue was dissected down to the level of the femoral artery. Common femoral artery was inspected and noted to be intact. Dissection then proceeded distally into the access site which was present in the right superficial femoral artery was encountered. Vigorous pulsatile bleeding was noted from this vessel. Proximal distal control was obtained and using a 6-0 Prolene the arterial laceration was repaired. Polyphasic signals were noted distal to the repair. The liquefied portion of the hematoma was evacuated. The wound was then irrigated with an antibiotic containing saline. Meticulous hemostasis was obtained throughout with electrocautery. The wound was then reapproximated with a layer of 2-0 Vicryl followed by 2 layers of 3-0 Vicryl. Skin was reapproximated with a running 3-0 Monocryl suture. Sterile dressing was applied and the patient was extubated and taken to recovery room in stable condition.
--- NOTE | 2019-03-07 15:01 | Anesthesia Evaluation Post Op ---
Date of Encounter: 03/07/19 Time of Encounter: 15:00 - Vital Signs Vital Signs: Vital Signs/O2 Sat, Most Current Temp Pulse Resp BP Pulse Ox 97 F L 100 12 121/94 100 03/07/19 14:48 03/07/19 14:48 03/07/19 14:48 03/07/19 14:48 03/07/19 14:48 - Lungs Lungs: Clear Ascult./Percussion - Airway Airway: Non-obstructed - Cardiovascular Irregular Rate, Baseline Rhythm - Mental Status Mental Status: Asleep with brisk response to light stimulation - Pain Pain Scale: 0 Pain Scale used: Numeric (1 - 10) - Nausea Vomiting Nausea Vomiting: Not Present - Hydration Hydration: NPO, Has not voided - Discharge PostOp Status: Transfer Patient to floor
[2019-03-07] MEDS ORDERED: Colchicine 0.6 MG TABLET PO PRN (15:36)
[2019-03-07] MEDS ORDERED: *HR* HYDROcodone/Acet 5/325 mg TABLET PO PRN (15:36)
[2019-03-07] MEDS ORDERED: *HR* OxyCODONE Immed Rel 5 MG TABLET PO PRN (15:36)
[2019-03-07] MEDS ORDERED: Furosemide 40 MG TABLET PO SCH ×2 (15:36→17:00)
[2019-03-07] MEDS ORDERED: Ipratropium/Albuterol Neb 3 ML IH PRN (15:36)
[2019-03-07] MEDS ORDERED: Ondansetron ODT 4 MG TAB.RAPDIS PO PRN (15:36)
[2019-03-07] MEDS ORDERED: Acetaminophen 325 MG TABLET PO PRN (15:36)
--- NOTE | 2019-03-07 15:48 | Internal Med History&Physical ---
Date of Encounter: 03/07/19 Time of Encounter: 16:00 Internal Medicine - H&P: HPI Chief complaint: Femoral artery psuedoaneurysm Admitted From: Emergency Dept Plans for Post Hospital Care: Home History of present illness: Mr. Dumont is a 73 year old male with a past medical history significant for atrial fibrillation currently on Wednesday correlation, ESRD, CAD, hypertension, hyperlipidemia, presented to the hospital with the concern for right groin and the thigh swelling. CT scan of the abdomen was done which showed right superficial femoral artery pseudoaneurysm and a large hematoma in the medial upper right thigh. Vascular surgery was consulted and the patient was taken to operation theater for the right femoral artery repair. Currently, patient is hemodynamically stable. Laboratory workup noted for hemog lobin of 8.4 and a WBC count of 12.4. Creatinine elevated at 8.03. Troponin of 0.11. At the time of the history, patient denied chest pain, shortness of breath. Patient denies pain at the surgical site. Patient denies fever, chills, rigors. Patient is much more comfortable. Past Med Surg Social Fam HX - Past Medical History Medical history: atrial fibrillation, cardiomyopathy, CHF, coronary artery disease, hypertension, renal disease Additional medical history: gout Psychiatric history: no psych history - Past Surgical History Surgical History: coronary bypass (CABG), herniorrhaphy, pacemaker/AICD Additional surgical history: bowel resection - Social History Smoking Status: Never smoker Smokeless Tobacco Status: No Alcohol use: none Drug use: none - Family History Father Hx Family Cardiac Disorders: Yes ([place]) Grandfather Hx Family Cardiac Disorders: Yes Internal Medicine - H&P: Meds RX: Carvedilol [Coreg] 12.5 mg PO BID 05/27/18 [History] RX: Colchicine [Colcrys] 0.6 mg PO DAILY PRN 05/27/18 [History] RX: Docusate [Colace] 200 mg PO DAILY 05/27/18 [History] RX: Albuterol Sulfate [Proair Hfa] 2 puff IH Q6H PRN 07/28/18 [History] RX: Budesonide/Formoterol 160/4.5 [Symbicort 160/4.5] 1 puff IH BIDR 07/28/18 [History] RX: GlipiZIDE [Glucotrol] 2.5 mg PO DAILY 07/28/18 [History] RX: Atorvastatin [Lipitor] 20 mg PO HS #30 tablet 08/12/18 [Rx] RX: Allopurinol [Zyloprim 100 MG] 100 mg PO DAILY 02/23/19 [History] RX: Apixaban [Eliquis] 2.5 mg PO BID 02/23/19 [History] RX: Calcium Acetate [Phos-LO] 1,334 mg PO TIDWM 02/23/19 [History] RX: Calcium Acetate [Phos-LO] 667 mg PO DAILY 02/23/19 [History] RX: Folic Acid/Vit B Complex and C [Dialyvite 800 Chewable Wafer] 800 mcg PO DAILY 02/23/19 [History] RX: Furosemide [Lasix] 40 mg PO AD 02/23/19 [History] RX: Ipratropium/Albuterol Neb [Duoneb] 3 ml IH Q6HR PRN 02/23/19 [History] RX: Melatonin 5 mg PO HS 02/23/19 [History] RX: Ondansetron ODT [Zofran ODT] 4 mg PO Q6-8H PRN 02/23/19 [History] RX: Polyethylene Glycol 3350 [MiraLAX] 17 gm PO DAILY PRN 02/23/19 [History] RX: Aspirin Enteric Coated [Aspirin EC] 81 mg PO DAILY tablet. 03/01/19 [Rx] RX: Digoxin [Lanoxin] 0.0625 mg PO Q48H tablet 03/01/19 [Rx] RX: predniSONE [PredniSONE] 40 mg PO DAILY 3 Days #6 tablet 03/01/19 [Rx] Allergy/AdvReac Type Severity Reaction Status Date / Time meperidine [From Demerol] Allergy Hives Verified 02/23/19 21:53 All Systems PM: A 10-system review of systems was performed and is negative for pertinent findings except as documented above in the HPI. Review of systems: General: Negative for fever, chills, rigors. HEENT: Negative for neck swelling, discharge from nose, discharge from ears. EYES: Negative for any discharge from the eyes. Respiratory: Negative for shortness of breath, orthopnea, exertional dyspnea. Cardiovascular: Negative for chest pain, shortness of breath, orthopnea, PND. Gastrintestical: Negative for diarrhea, constipation, blood in stools. Genitourinary: Negative for dysuria, hematuria, nocturia, increased frequency of urine. Hematological: See HPI Neurological: Negative for headache, dizziness, blurry vision, loss os power and sensations. Endocrinology: Negative for constipation, polyuria, polydipsia. Integumentary: Negative for rash, wounds, ulcers. Psychiatric: Negative for anxiety or depression. - Constitutional Vitals: Temp Pulse Resp BP Pulse Ox 97.6 F 110 18 133/84 92 03/07/19 15:40 03/07/19 15:40 03/07/19 15:40 03/07/19 15:40 03/07/19 15:40 Exam: General: Alert and oriented, no physical distress, able to follow commands. HEENT: No thyromegaly, no lymphadenopathy, no discharge. Eyes: No discharge. Normal conjuctiva, no icterus Respiratory: Normal vesicular breathing, no added sounds, breathing equal in both sides. CVS: Normal heart sounds, no murmurs, regular rhthm, no edema Extremities: No peripheral edema, peripheral pulses intact. Musculuskeletal: Edema and hematoma appreciated on the rigth leg. Marking noted. Tendrness to palpation. Lymph nodes: No lymphadenopathy Gastrointestinal: Soft, nontender abdomen, normal abdominal sounds. No dis tention noted. Genitourinary: No paravertebral tenderness. Skin: No rash, ulcers or wound. Neurological: Alert and oriented. No focal deficits. Cranial nerves II-XII intact. Internal Med - H&P Results - Labs CBC & Chem 7: 03/07/19 16:42 03/07/19 08:40 Labs: Short CBC 03/07/19 Range/Units 08:40 WBC 12.4 H (4.3-11.1) K/mcL Hgb 8.4 L D (12.9-16.9) g/dL Hct 26.3 L (37.5-50.1) % Plt Count 257 (140-400) K/mcL Neutrophils # 10.0 H (1.6-8.9) K/mcL BMP 03/07/19 08:40 Sodium 135 L Potassium 4.1 Chloride 96 L Carbon Dioxide 28 BUN 83 H Creatinine 8.03 H Glucose 97 Calcium 6.8 L Cardiac Enzymes 03/07/19 Range/Units 08:40 Troponin I 0.11 H* (< 0.04) ng/mL Liver Function 03/07/19 Range/Units 08:40 Total Bilirubin 0.4 (0.3-1.0) mg/dL AST 22 (13-39) Units/L ALT 14 (7-52) Units/L Alkaline Phosphatase 36 (34-104) Units/L Albumin 2.4 L (3.5-5.7) g/dL - Impressions ITS Impressions Chest X-Ray 03/07/19 08:52 IMPRESSION: Improved aeration of the left lung base with persistent left retrocardiac opacity favored to represent atelectasis although infection is not excluded. D/ / Chetan Vincent / Chetan Vincent Interpreting Provider: Chetan Vincent Abdomen/Pelvis CT 03/07/19 10:16 IMPRESSION: 1. 2.6 x 1.9 x 2.5 cm pseudoaneurysm of the right superficial femoral artery 2. Large hematoma in the medial upper right thigh 3. Large bilateral pleural effusions 4. Small hiatal hernia 5. Colonic diverticulosis 6. Prostatic enlargement 7. 2.7 cm ectasia of the distal abdominal aorta RECOMMENDATIONS: 2.7 cm ectasia No follow-up imaging is recommended. Reference: J Vasc Surg 2009 Oct;50(4 Suppl):S2-49. D/ / Nate Cazares MD / Nate Cazares MD Interpreting Provider: Nate Cazares MD - Assessment and Plan (1) Femoral artery pseudoaneurysm complicating cardiac catheterization Current Visit: Yes Status: Acute Assessment and plan: CT scan evidence. Currently stable. Vascular surgery on board. Further management as per vascular surgery. Pain management. (2) Acute blood loss anemia Current Visit: Yes Status: Acute Assessment and plan: Hemoglobin noted to be 8.4, baseline around 10.0. Likely due to the hematoma and femoral artery hemorrhage. Continue to monitor hemoglobin. Transfuse if dropped below 7. (3) ESRD (end stage renal disease) on dialysis Current Visit: Yes Status: Acute Assessment and plan: Nephrology consulted. MWF schedule, likely dialyisi tomorrow, no urgent indications (4) Elevated troponin Current Visit: Yes Status: Acute Assessment and plan: Likely due to demand ischemia with bleeding, considering patient's history of CAD We will trend troponins. (5) Hematoma Current Visit: Yes Status: Acute (6) Atrial fibrillation Current Visit: Yes Status: Chronic Assessment and plan: History of atrial fibrillation. On coreg for rate control which will be continued. Eliquis as per vascular surgery Qualifiers: Atrial fibrillation type: chronic Qualified Code(s): I48.2 - Chronic atrial fibrillation (7) Diabetes mellitus Current Visit: Yes Status: Chronic Assessment and plan: Hold home oral meds On LDSS Qualifiers: Diabetes mellitus type: type 2 Diabetes mellitus alf insulin use: without alf use Diabetes mellitus complication status: with other specified complication Qualified Code(s): E11.69 - Type 2 diabetes mellitus with other specified complication (8) Essential hypertension Current Visit: Yes Status: Chronic Assessment and plan: Home meds resumed (9) CHF (congestive heart failure) Current Visit: No Status: Chronic Assessment and plan: Recent echo with EF of 25% Resume home meds Qualifiers: Heart failure type: combined systolic and diastolic Heart failure chronicity: chronic Qualified Code(s): I50.42 - Chronic combined systolic (congestive) and diastolic (congestive) heart failure (10) FSGS (focal segmental glomerulosclerosis) with nephrosis Current Visit: No Status: Chronic (11) Chronic bilateral pleural effusions Current Visit: Yes Status: Acute - Time Spent With Patient Total time spent is greater than 50% in coordination of care (as documented) at patient's floor/unit and/or counseling patient:
[2019-03-07] MEDS ORDERED: *HR* Dextrose 50 % in Water (Syg) 50 ML SYRINGE IVP PRN (15:58)
[2019-03-07] MEDS ORDERED: D5% in Water 1,000 ML IVC PRN (15:58)
[2019-03-07] MEDS ORDERED: Dextrose Gel 15 GM/37.5 ML TUBE PO PRN ×2 (15:58)
[2019-03-07] MEDS: Ondansetron 4 MG/2 ML VIAL IVP PRN (16:29)
[2019-03-07] MEDS: Insulin LISPRO 300 UNITS/3 ML VIAL SQ SCH (16:48)
[2019-03-07] MEDS: Calcium Acetate 667 MG CAPSULE PO SCH (16:52)
[2019-03-07] MEDS ORDERED: *HR* Digoxin 0.125 MG TABLET PO ONE (17:00)
[2019-03-07 17:11] LABS: Hemoglobin 8.2 g/dL (12.9-16.9); Mean Corpuscular HGB Conc 31.5 g/dL (31.6-35.5); Mean Corpuscular Hemoglobin 32.9 pg (28.0-33.3); Mean Corpuscular Volume 104.4 fL (83.0-100.0); Mean Platelet Volume 10.4 fL (9.4-12.4); Platelet Count 257 K/mcL (140-400); Red Blood Count 2.49 M/mcL (4.19-5.50); White Blood Count 11.1 K/mcL (4.3-11.1)
[2019-03-07] MEDS: Melatonin 3 MG TABLET PO SCH (19:57)
[2019-03-07] MEDS: Budesonide/Formoterol 160/4.5 1 PUFF INH IH SCH (20:20)
[2019-03-08 02:35] LABS: Basophils % 0.3 %; Eosinophils # 0.1 K/mcL (0.0-0.6); Eosinophils % 1.3 %; Hematocrit 26.6 % (37.5-50.1); Hemoglobin 8.3 g/dL (12.9-16.9); Immature Granulocytes % 0.6 % (0-4); Lymphocytes # 1.1 K/mcL (0.6-4.6); Lymphocytes % 9.8 %; Mean Corpuscular HGB Conc 31.2 g/dL (31.6-35.5); Mean Corpuscular Hemoglobin 32.8 pg (28.0-33.3); Mean Corpuscular Volume 105.1 fL (83.0-100.0); Mean Platelet Volume 10.3 fL (9.4-12.4); Monocytes % 9.3 %; Neutrophils # 8.5 K/mcL (1.6-8.9); Platelet Count 245 K/mcL (140-400); Red Blood Count 2.53 M/mcL (4.19-5.50); Red Cell Distribution Width 18.4 % (11.5-14.5); Segmented Neutrophils % 78.7 %; White Blood Count 10.9 K/mcL (4.3-11.1)
[2019-03-08 02:57] LABS: Calcium 6.8 mg/dL (8.6-10.3); Potassium 4.9 mEq/L (3.5-5.1)
[2019-03-08] MEDS: Budesonide/Formoterol 160/4.5 1 PUFF INH IH SCH ×2 (07:32→20:21)
[2019-03-08] MEDS: Insulin LISPRO 300 UNITS/3 ML VIAL SQ SCH ×3 (07:53→17:31)
[2019-03-08] MEDS: Calcium Acetate 667 MG CAPSULE PO SCH ×4 (07:54→17:40)
[2019-03-08] MEDS: Apixaban 5 MG TABLET PO SCH ×2 (07:55→20:30)
[2019-03-08] MEDS: Multivit/Ca/Min/Fe/FA 1 TAB TABLET PO SCH (07:56)
[2019-03-08] MEDS: Aspirin Enteric Coated 81 MG Tablet PO SCH (07:56)
[2019-03-08] MEDS: Ondansetron 4 MG/2 ML VIAL IVP PRN (08:23)
[2019-03-08] MEDS ORDERED: 0.9 % Sodium Chloride 1,000 ML ONE (08:44)
[2019-03-08] MEDS ORDERED: 0.9 % Sodium Chloride 250 ML IVC PRN (08:46)
[2019-03-08] MEDS ORDERED: GlipiZIDE 5 MG TABLET PO SCH (09:00)
[2019-03-08] MEDS ORDERED: predniSONE 20 MG TABLET PO SCH (09:00)
[2019-03-08] MEDS ORDERED: 0.9 % Sodium Chloride 1,000 ML PRIME SCH (09:00)
--- NOTE | 2019-03-08 10:27 | Electrocardiograph Report ---
[facility] Test Date: 2019-03-07 Pat Name: Clement Dumont Department: EXAM2 Room: 2N08 Gender: M [employer] Manager: : 1945 Requested By: Tony Levine Order Number: [id number] Reading MD: Jose Daniel Barahona Measurements Intervals D Hanis Rate: 93 P: NM: QRS: 74 QRSD: 94 T: -73 QT: 399 QTc: 497 Interpretive Statements Atrial fibrillation Borderline low voltage, extremity leads Anteroseptal infarct, old Electronically Signed On 03-08-2019 10:25:30 EDT by Jose Daniel Barahona
[2019-03-08] MEDS ORDERED: Albumin 25% 12.5gm/50mL 25.0 GM/100 ML IV.SOLN ONE (12:31)
--- NOTE | 2019-03-08 13:35 | Vascular/Endovas Progress Note ---
Date of Encounter: 03/08/19 Time of Encounter: 09:30 - Assessment and plan (1) Laceration of right femoral artery Current Visit: Yes Status: Acute The patient is postoperative day #1 after right femoral artery laceration secondary to left heart catheterization. Although anemic, the patient remained hemodynamically stable. He may resume his anticoagulation today. He is scheduled for dialysis later this morning. He will follow-up in vascular clinic in 2-3 weeks. (2) Atrial fibrillation Current Visit: Yes Status: Chronic Qualifiers: Atrial fibrillation type: chronic Qualified Code(s): I48.2 - Chronic atrial fibrillation (3) ESRD (end stage renal disease) on dialysis Current Visit: No Status: Chronic (4) Essential hypertension Current Visit: Yes Status: Chronic (5) Mixed hyperlipidemia Current Visit: Yes Status: Chronic - Subjective Interval history: The patient is alert and comfortable. He reports adequate pain control. He reports his right leg feels much better today. He denies any chest pain or shortness of breath. Vital Signs, Last 4 Hours Temp Resp BP 03/08/19 13:05 96/48 03/08/19 12:50 99/56 03/08/19 12:35 85/48 03/08/19 12:20 89/56 03/08/19 12:05 89/56 03/08/19 11:50 92/54 03/08/19 11:35 98/69 03/08/19 11:20 92/57 03/08/19 11:05 109/57 03/08/19 10:50 97.7 F 18 122/76 - Physical Examination General: Present: Conversant HEENT: Present: Pupils equal Cardiac: Present: Irregular Rhythm Lungs: Present: Normal Breath Sounds Neuro: Present: Alert and responsive, No focal deficits noted Vascular: Present: Normal capillary refill, Surgical incisions (incision clean, dry and intact without erythema or drainage). Absent: Cyanosis, Edema Abdomen: Present: Soft, Non-tender Skin: Present: No rashes noted on visualized skin Results 03/08/19 01:56 03/08/19 01:56 Lab Results, Last 24 hours 03/07/19 03/07/19 03/08/19 16:42 16:42 01:56 WBC 11.1 10.9 Hgb 8.2 L 8.3 L Hct 26.0 L 26.6 L Plt Count 257 245 Sodium Potassium Chloride Carbon Dioxide BUN Creatinine Glucose Calcium Troponin I 0.11 H* 03/08/19 01:56 WBC Hgb Hct Plt Count Sodium 133 L Potassium 4.9 Chloride 93 L Carbon Dioxide 24 BUN 91 H Creatinine 8.71 H Glucose 96 Calcium 6.8 L Troponin I Consult Discharge Plan - Plan
--- NOTE | 2019-03-08 14:21 | Internal Med Progress Note ---
Hospitalist Progress Note - Encounter Date of Encounter: 03/08/19 Time of Encounter: 14:19 - Subjective Interval History: Patient seen and examined. Patient reports nausea this am with vomiting. He was given a dose of zofran and improved. Per nursing and patient, he has not eaten since Wednesday. Patient notes he just doesnt feel like eating. - Exam Vitals: Temp Pulse Resp BP Pulse Ox 97.7 F 94 18 96/48 97 03/08/19 10:50 03/08/19 08:15 03/08/19 10:50 03/08/19 13:05 03/08/19 08:15 Exam: General: Alert and oriented, no physical distress, able to follow commands. HEENT: No thyromegaly, no lymphadenopathy, no discharge. Eyes: No discharge. Normal conjuctiva, no icterus Respiratory: Normal vesicular breathing, no added sounds, breathing equal in both sides. CVS: Normal heart sounds, no murmurs, regular rhthm, no edema Extremities: No peripheral edema, peripheral pulses intact. Musculuskeletal: Edema appreciated on the rigth leg. Marking noted. Tendrness to palpation. Lymph nodes: No lymphadenopathy Gastrointestinal: Soft, nontender abdomen, normal abdominal sounds. No distention noted. Genitourinary: No paravertebral tenderness. Skin: No rash, ulcers or wound. Neurological: Alert and oriented. No focal deficits. Cranial nerves II-XII intact. 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 Currently stable. Vascular surgery on board; patient tolerated surgery Pain management. restart anticoagulation OP f/u in 2-3 weeks (2) Nausea and vomiting Current Visit: Yes Status: Acute Assessment and Plan: Patient had episode of vomiting with nausea this morning Patient has not eaten since Wednesday; no bowel movements in same period Patient scheduled for dialysis today and Cr elevated; potentially contributing to symptoms with acute insult Plan: Zofran Liquid diet; advance as tolerated Dialysis may make patient feel better (3) Acute blood loss anemia Current Visit: Yes Status: Acute Assessment and Plan: Hemoglobin noted to be 8.4 on admission, baseline around 10.0. Continues to be stable Likely due to the hematoma and femoral artery hemorrhage. Continue to monitor hemoglobin. Transfuse if dropped below 7. (4) ESRD (end stage renal disease) on dialysis Current Visit: Yes Status: Chronic Assessment and Plan: Cr up to 8.71 Nephrology consulted. MWF scheduled (5) Elevated troponin Current Visit: Yes Status: Acute Assessment and Plan: Likely due to demand ischemia with bleeding, considering patient's history of CAD (6) Hematoma Current Visit: Yes Status: Acute (7) Atrial fibrillation Current Visit: Yes Status: Chronic Assessment and Plan: History of atrial fibrillation. On coreg for rate control which will be continued. Eliquis restarted per vascular (8) Diabetes mellitus Current Visit: Yes Status: Chronic Assessment and Plan: Hold home oral meds On LDSS (9) Essential hypertension Current Visit: Yes Status: Chronic Assessment and Plan: Home meds resumed (10) CHF (congestive heart failure) Current Visit: No Status: Chronic Assessment and Plan: Recent echo with EF of 25% Resume home meds (1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 Current Visit: No Status: Chronic (12) Chronic bilateral pleural effusions Current Visit: Yes Status: Acute - Time Spent with Patient Total time spent is greater than 50% in coordination of care (as documented) at patient's floor/unit and/or counseling patient: 40 minutes Plan of Care Discussed with: patient Internal Medicine: Result - Labs CBC & Chem 7: 03/08/19 01:56 03/08/19 01:56 Labs: Short CBC 03/07/19 03/08/19 Range/Units 16:42 01:56 WBC 11.1 10.9 (4.3-11.1) K/mcL Hgb 8.2 L 8.3 L (12.9-16.9) g/dL Hct 26.0 L 26.6 L (37.5-50.1) % Plt Count 257 245 (140-400) K/mcL Neutrophils # 8.5 (1.6-8.9) K/mcL BMP 03/08/19 01:56 Sodium 133 L Potassium 4.9 Chloride 93 L Carbon Dioxide 24 BUN 91 H Creatinine 8.71 H Glucose 96 Calcium 6.8 L Cardiac Enzymes 03/07/19 Range/Units 16:42 Troponin I 0.11 H* (< 0.04) ng/mL - ABG Interpretation ABG results: PT/INR, D-dimer PT 12.2 Seconds (9.4-12.1) H 03/07/19 08:40 Consult Discharge Plan - Plan [facility]errals: [facility] [Primary Care Provider] - (7) Atrial fibrillation Qualifiers: Atrial fibrillation type: chronic Qualified Code(s): I48.2 - Chronic atrial fibrillation (8) Diabetes mellitus Qualifiers: Diabetes mellitus type: type 2 Diabetes mellitus detention insulin use: without detention use Diabetes mellitus complication status: with other specified complication Qualified Code(s): E11.69 - Type 2 diabetes mellitus with other specified complication (10) CHF (congestive heart failure) Qualifiers: Heart failure type: combined systolic and diastolic Heart failure chronicity: chronic Qualified Code(s): I50.42 - Chronic combined systolic (congestive) and diastolic (congestive) heart failure
--- NOTE | 2019-03-08 14:37 | Nephrology Consult Note ---
<Alaina Liang - Last Filed: 03/08/19 14:50> Date of Encounter: 03/08/19 Time of Encounter: 09:30 Assessment and Plan (1) ESRD (end stage renal disease) on dialysis Status: Acute Current regimen is MWF in [place] HD in progress for today. Renal diet Renal vitamins Strict I/O Avoid nephrotoxins and renal dose all medications. Will order additional UF or HD as needed. 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 (3) Frail elderly Status: Acute Consider PT/OT. (4) Nausea and vomiting Status: Acute Continue supportive care. Qualifiers: Qualified Code(s): R11.2 - Nausea with vomiting, unspecified History of Present Illness - Reason for Consult Consult date: 03/08/19 end stage renal disease Requesting physician: Zonia Preciado - Chief Complaint ESRD - History of Present Illness Mr. Dumont is a 73 year old male who presented to ED with right groin pain. He is s/p recent heart cath on 02/27/19. PMH: coronary bypass (CABG), HTN, and ESRD. Current regimen is MWF in [place]. Last HD session was Wednesday without complication per patient. Pt has been on HD for a short while follow a dx of FSGS. Denies chest pain or shortness of breath. Denies nausea, vomiting, diarrhea. Admits to pain to right groin area. He lives at home with . Denies tobacco use, etoh, or illicit drug use. Has been on HD since dx of FSGS. Denies FH of CKD or HD. HD in progress for today. Past Med Surg Social Fam HX - Past Medical History Medical history: atrial fibrillation, cardiomyopathy, CHF, coronary artery disease, hypertension, renal disease Additional medical history: gout Psychiatric history: no psych history - Past Surgical History Surgical History: coronary bypass (CABG), herniorrhaphy, pacemaker/AICD Additional surgical history: bowel resection - Social History Smoking Status: Never smoker Smokeless Tobacco Status: No Alcohol use: none Drug use: none - Family History Father Adopted: No Living Status: Hx Family Cardiac Disorders: Yes (IA) Hx Family Respiratory Disorders: No Hx Family Cancer: No Hx Family GI Disorders: No Hx Family Genitourinary Disorders: No Hx Family Endocrine Disorder: No Hx Family Musculoskeletal Disorders: No Hx Family Neuromuscular Disorders: No Hx Family Neurologic Disorders: No Hx Family HEENT Disorders: No Hx Family Autoimmune Disorders: No Hx Family Reproductive Disorders: No Hx Family Psychosocial Disorders: No Hx Family Medical Disorders: No Grandfather Family Member Ethnicity: Non- Living Status: Hx Family Cardiac Disorders: Yes Hx Family Respiratory Disorders: No Hx Family Cancer: Yes (mothers side) Hx Family Genitourinary Disorders: No Hx Family Endocrine Disorder: No Hx Family Musculoskeletal Disorders: No Hx Family Neuromuscular Disorders: No Hx Family Neurologic Disorders: No Hx Family HEENT Disorders: No Hx Family Autoimmune Disorders: No Hx Family Reproductive Disorders: No Hx Family Psychosocial Disorders: No Hx Family Medical Disorders: No Medications and Allergies Carvedilol [Coreg] 12.5 mg PO BID 05/27/18 [History] Colchicine [Colcrys] 0.6 mg PO DAILY 05/27/18 [History] Docusate [Colace] 200 mg PO DAILY 05/27/18 [History] Albuterol Sulfate [Proair Hfa] 2 puff IH Q6H PRN 07/28/18 [History] Budesonide/Formoterol 160/4.5 [Symbicort 160/4.5] 1 puff IH BIDR 07/28/18 [History] GlipiZIDE [Glucotrol] 2.5 mg PO DAILY 07/28/18 [History] Atorvastatin [Lipitor] 20 mg PO HS #30 tablet 08/12/18 [Rx] Allopurinol [Zyloprim 100 MG] 100 mg PO DAILY 02/23/19 [History] Apixaban [Eliquis] 2.5 mg PO BID 02/23/19 [History] Folic Acid/Vit B Complex and C [Dialyvite 800 Chewable Wafer] 800 mcg PO DAILY 02/23/19 [History] Furosemide [Lasix] 40 mg PO AD 02/23/19 [History] Ipratropium/Albuterol Neb [Duoneb] 3 ml IH Q6HR PRN 02/23/19 [History] Melatonin 5 mg PO HS PRN 02/23/19 [History] Ondansetron ODT [Zofran ODT] 4 mg PO Q6-8H PRN 02/23/19 [History] Polyethylene Glycol 3350 [MiraLAX] 17 gm PO DAILY PRN 02/23/19 [History] Aspirin Enteric Coated [Aspirin EC] 81 mg PO DAILY tablet. 03/01/19 [Rx] Digoxin [Lanoxin] 0.0625 mg PO Q48H tablet 03/01/19 [Rx] Ferric Citrate [Auryxia] 420 mg PO TIDWM 03/08/19 [History] Calcium Acetate [Phos-LO] 1,334 mg PO TIDWM capsule 03/09/19 [Rx] Calcium Acetate [Phos-LO] 667 mg PO DAILY capsule 03/09/19 [Rx] Allergy/AdvReac Type Severity Reaction Status Date / Time meperidine [From Demerol] Allergy Hives Verified 03/13/19 19:49 Review of Systems All Systems review (narrative): The remainder of the systems are negative. Constitutional: fatigue, no chills, no fever(s) Cardiovascular: edema, no chest pain, no dyspnea Respiratory: wheezing, no cough, no dyspnea, no hemoptysis Gastrointestinal: diarrhea, nausea, vomiting Exam - Vital Signs Vital signs: Initial Vital Signs Temp Pulse Resp BP Pulse Ox 97.7 F 88 17 128/69 97 03/07/19 08:30 03/07/19 08:30 03/07/19 08:30 03/07/19 08:30 03/07/19 08:30 Vital Signs - Last 8 Hours Temp Pulse Resp BP Pulse Ox 03/08/19 13:05 96/48 03/08/19 12:50 99/56 03/08/19 12:35 85/48 03/08/19 12:20 89/56 03/08/19 12:05 89/56 03/08/19 11:50 92/54 03/08/19 11:35 98/69 03/08/19 11:20 92/57 03/08/19 11:05 109/57 03/08/19 10:50 97.7 F 18 122/76 03/08/19 08:15 94 20 97 03/08/19 08:02 98 03/08/19 07:36 98.0 F 110 20 101/75 98 03/08/19 07:28 16 101/75 96 Intake and Output 03/07/19 03/08/19 03/08/19 23:59 07:59 15:59 Intake Total 100 / 100 100 / 940 840 / 940 Output Total 120 / 120 Balance 100 / 0 100 / 820 720 / 820 Intake: IV Fluids 100 / 100 100 / 100 Ancef 2,000 MG In 0.9 % Sodium 100 / 100 100 / 100 Chloride 100 ML @ 200 mls/hr IVPB Q8H [facility] Rx#:[id number] Oral 0 / 0 240 / 240 Intake, Rinseback and Flushes 600 / 600 Output: Emesis 120 / 120 Other: Meal Dinner Breakfast Percent of Meal Consumed 0% 0% Blood Glucose* 107 92 Hemodialysis Net Fluid Removed 1106 (mL) - General Appearance General appearance: well-developed, well-nourished EENT: ATNC, hearing intact, vision intact Neck: supple Respiratory: clear Cardiology: edema (+1 pitting edema noted to bilat lower extremities.), normal S1, normal S2 - Dialysis Access Dialysis Vascular Access: Arteriovenous Fistula thrill: Yes bruit: Yes Gastrointestinal: normoactive bowel sounds, no tenderness, no guarding Integumentary: no rash, warm and dry Neurologic: alert and oriented x3 Musculoskeletal: no deformities, no erythema Psychiatric: mood/affect appropriate, cooperative Additional exam: Right foot noted to be more cool and pale, doppler pulses present per nurse documentation. 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 I agree with the documented findings, disposition and treatment plan as described except to the extent set forth below. In brief; 73 y o male with PMH of ESRD due to FSGS on HD admitted with R groin pain after recent LHC 02/27/19. Pt seen and examined on HD. On exam: Gen: NAD, lungs decreased BS bases bilat, Heart S1S2, Abd soft NTND, Ext + LE edema bilat, RLE cool to touch and neuro AAOx3. Labs noted. Continue HD with UF as tolerated per schedule MWF.
[2019-03-08] MEDS ORDERED: Furosemide 40 MG TABLET PO SCH (15:00)
[2019-03-08] MEDS: Melatonin 3 MG TABLET PO SCH (20:29)
[2019-03-09] MEDS: Budesonide/Formoterol 160/4.5 1 PUFF INH IH SCH (07:25)
[2019-03-09] MEDS ORDERED: Furosemide 40 MG TABLET PO SCH (08:00)
[2019-03-09] MEDS: Insulin LISPRO 300 UNITS/3 ML VIAL SQ SCH (08:17)
[2019-03-09] MEDS: Apixaban 5 MG TABLET PO SCH (08:18)
[2019-03-09] MEDS: Multivit/Ca/Min/Fe/FA 1 TAB TABLET PO SCH (08:18)
[2019-03-09] MEDS: Calcium Acetate 667 MG CAPSULE PO SCH ×2 (08:18)
[2019-03-09] MEDS: Aspirin Enteric Coated 81 MG Tablet PO SCH (08:19)
--- NOTE | 2019-03-09 08:39 | Vascular/Endovas Progress Note ---
Date of Encounter: 03/09/19 Time of Encounter: 07:50 - Assessment and plan (1) Laceration of right femoral artery Current Visit: Yes Status: Acute The patient is postoperative day #2 after right femoral artery laceration secondary to left heart catheterization. He is healing well. His is ready for discharge from a vascular surgery standpoint. (2) Atrial fibrillation Current Visit: Yes Status: Chronic Qualifiers: Atrial fibrillation type: chronic Qualified Code(s): I48.2 - Chronic atrial fibrillation (3) ESRD (end stage renal disease) on dialysis Current Visit: No Status: Chronic (4) Essential hypertension Current Visit: Yes Status: Chronic (5) Mixed hyperlipidemia Current Visit: Yes Status: Chronic - Subjective Interval history: The patient reports that he is feeling better today. He denies any chest pain or shortness of breath. Vital Signs, Last 4 Hours Temp Pulse Resp BP Pulse Ox 03/09/19 07:33 98.8 F 100 18 122/69 95 03/09/19 07:26 19 93 Results 03/08/19 01:56 03/08/19 01:56 Consult Discharge Plan - Plan [facility]errals: [facility] [Primary Care Provider] -
[2019-03-09] MEDS ORDERED: *HR* Digoxin 0.125 MG TABLET PO SCH (09:00)
[2019-03-09 09:27] LABS: Hematocrit 19.4 % (37.5-50.1); Mean Corpuscular HGB Conc 31.4 g/dL (31.6-35.5); Mean Corpuscular Hemoglobin 32.8 pg (28.0-33.3); Mean Corpuscular Volume 104.3 fL (83.0-100.0); Mean Platelet Volume 9.7 fL (9.4-12.4); Platelet Count 211 K/mcL (140-400); Red Blood Count 1.86 M/mcL (4.19-5.50); White Blood Count 10.1 K/mcL (4.3-11.1)
[2019-03-09 09:29] LABS: Hemoglobin 6.1 g/dL (12.9-16.9)
[2019-03-09 10:58] VITALS: BP 103/60
--- NOTE | 2019-03-09 11:34 | Discharge Summary ---
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 Priority: Primary Status: Acute (2) Nausea and vomiting Priority: Secondary Status: Acute Qualifiers: Qualified Code(s): R11.2 - Nausea with vomiting, unspecified (3) Acute blood loss anemia Priority: Secondary Status: Acute (4) ESRD (end stage renal disease) on dialysis Priority: Secondary Status: Chronic (5) Elevated troponin Priority: Secondary Status: Acute (6) Hematoma Priority: Secondary Status: Acute (7) Atrial fibrillation Priority: Secondary Status: Chronic Qualifiers: Atrial fibrillation type: chronic Qualified Code(s): I48.2 - Chronic atrial fibrillation (8) Diabetes mellitus Priority: Secondary Status: Chronic Qualifiers: Diabetes mellitus type: type 2 Diabetes mellitus buttermaker helper insulin use: without fci use Diabetes mellitus complication status: with other specified complication Qualified Code(s): E11.69 - Type 2 diabetes mellitus with other specified complication (9) Essential hypertension Priority: Secondary Status: Chronic (10) CHF (congestive heart failure) Priority: Secondary Status: Chronic Qualifiers: Heart failure type: combined systolic and diastolic Heart failure chronicity: chronic Qualified Code(s): I50.42 - Chronic combined systolic (congestive) and diastolic (congestive) heart failure (1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 Priority: Secondary Status: Chronic (12) Chronic bilateral pleural effusions Priority: Secondary Status: Acute Hospital course: Mr. Dumont is a 73 year old male with PMH of atrial fibrillaiton, ESRD, CAD, HTN, HLD presented wiht right LE swelling. CT showed a right superficial femoral artery pseudoaneurysma nd large hematoma. Vascular surgery was consulted and patient was taken to OR for right femoral artery repair. Nephrology was consulted as patient is on MWF dialysis. Postop, patient had some nausea and vomiting. He was given zofran IV and after dialysis felt better. Patient tolerated meals well. Patient was clinically stable on day of discharge. Discharge discussed with: patient - Time Spent with Patient Total time spent providing and/or coordinating discharge services: 35 minute - Discharge Medications Prescriptions: New Calcium Acetate [Phos-LO] 1,334 mg PO TIDWM capsule Calcium Acetate [Phos-LO] 667 mg PO DAILY capsule Continued Docusate [Colace] 200 mg PO DAILY Colchicine [Colcrys] 0.6 mg PO DAILY Carvedilol [Coreg] 12.5 mg PO BID GlipiZIDE [Glucotrol] 2.5 mg PO DAILY Budesonide/Formoterol 160/4.5 [Symbicort 160/4.5] 1 puff IH BIDR Albuterol Sulfate [Proair Hfa] 2 puff IH Q6H PRN PRN Reason: Shortness Of Breath Atorvastatin [Lipitor] 20 mg PO HS #30 tablet Melatonin 5 mg PO HS PRN PRN Reason: Sleep Allopurinol [Zyloprim 100 MG] 100 mg PO DAILY Apixaban [Eliquis] 2.5 mg PO BID Folic Acid/Vit B Complex and C [Dialyvite 800 Chewable Wafer] 800 mcg PO DAILY Furosemide [Lasix] 40 mg PO AD Ondansetron ODT [Zofran ODT] 4 mg PO Q6-8H PRN PRN Reason: Nausea Polyethylene Glycol 3350 [MiraLAX] 17 gm PO DAILY PRN PRN Reason: Constipation Ipratropium/Albuterol Neb [Duoneb] 3 ml IH Q6HR PRN PRN Reason: Shortness Of Breath Aspirin Enteric Coated [Aspirin EC] 81 mg PO DAILY tablet. Digoxin [Lanoxin] 0.0625 mg PO Q48H tablet Ferric Citrate [Auryxia] 420 mg PO TIDWM Nut.tx.impaired Renal Fxn,Soy [Nepro Carb Steady] 237 ml PO QAM Home Medications: Carvedilol [Coreg] 12.5 mg PO BID 05/27/18 [History] Colchicine [Colcrys] 0.6 mg PO DAILY 05/27/18 [History] Docusate [Colace] 200 mg PO DAILY 05/27/18 [History] Albuterol Sulfate [Proair Hfa] 2 puff IH Q6H PRN 07/28/18 [History] Budesonide/Formoterol 160/4.5 [Symbicort 160/4.5] 1 puff IH BIDR 07/28/18 [Histo ry] GlipiZIDE [Glucotrol] 2.5 mg PO DAILY 07/28/18 [History] Atorvastatin [Lipitor] 20 mg PO HS #30 tablet 08/12/18 [Rx] Allopurinol [Zyloprim 100 MG] 100 mg PO DAILY 02/23/19 [History] Apixaban [Eliquis] 2.5 mg PO BID 02/23/19 [History] Folic Acid/Vit B Complex and C [Dialyvite 800 Chewable Wafer] 800 mcg PO DAILY 02/23/19 [History] Furosemide [Lasix] 40 mg PO AD 02/23/19 [History] Ipratropium/Albuterol Neb [Duoneb] 3 ml IH Q6HR PRN 02/23/19 [History] Melatonin 5 mg PO HS PRN 02/23/19 [History] Ondansetron ODT [Zofran ODT] 4 mg PO Q6-8H PRN 02/23/19 [History] Polyethylene Glycol 3350 [MiraLAX] 17 gm PO DAILY PRN 02/23/19 [History] Aspirin Enteric Coated [Aspirin EC] 81 mg PO DAILY tablet. 03/01/19 [Rx] Digoxin [Lanoxin] 0.0625 mg PO Q48H tablet 03/01/19 [Rx] Ferric Citrate [Auryxia] 420 mg PO TIDWM 03/08/19 [History] Nut.tx.impaired Renal Fxn,Soy [Nepro Carb Steady] 237 ml PO QAM 03/08/19 [History] Calcium Acetate [Phos-LO] 1,334 mg PO TIDWM capsule 03/09/19 [Rx] Calcium Acetate [Phos-LO] 667 mg PO DAILY capsule 03/09/19 [Rx] Allergies/Adverse Reactions: Allergy/AdvReac Type Severity Reaction Status Date / Time meperidine [From Demerol] Allergy Hives Verified 02/23/19 21:53 Date of admission: 03/09/19 10:55 [facility] care physician: [facility] Consults: 03/07/19 11:17 Consult to Vascular Surgery [CONS] Stat Consulting Provider: Vascular Surgery Debbie Reason for Consult: Femoral pseudoaneurysm status post cardiac catheterization Dr. Yadav Time Notified: 11:18 Call Completed: Yes 03/07/19 15:52 Consult to Nephrology [CONS] Routine Consulting Provider: Kidney Debbie/REYNOLD/AUREA/ROSY Reason for Consult: ESRD on HDS Call Completed: No 03/08/19 09:00 Consult to Dialysis [CONS] ONCE Discharging clinician: Zonia Preciado Anticipated date of discharge: 03/09/19 - Constitutional Vitals: Temp Pulse Resp BP Pulse Ox 98.2 F 100 18 103/60 94 03/09/19 10:56 03/09/19 10:56 03/09/19 10:56 03/09/19 10:56 03/09/19 10:56 General appearance: Present: A&O X 3, no acute distress, answers questions appropriately Exam: General: Alert and oriented, no physical distress, able to follow commands. HEENT: No thyromegaly, no lymphadenopathy, no discharge. Eyes: No discharge. Normal conjuctiva, no icterus Respiratory: Normal vesicular breathing, no added sounds, breathing equal in both sides. CVS: Normal heart sounds, no murmurs, regular rhthm, no edema Extremities: No peripheral edema, peripheral pulses intact. Musculuskeletal: Edema appreciated on the rigth leg. Marking noted. Tendrness to palpation. Lymph nodes: No lymphadenopathy Gastrointestinal: Soft, nontender abdomen, normal abdominal sounds. No distention noted. Genitourinary: No paravertebral tenderness. Skin: No rash, ulcers or wound. Neurological: Alert and oriented. No focal deficits. Cranial nerves II-XII intact. - Patient Status Disposition: Home, Self-Care Condition: Good Functional capacity at discharge: independent ambulation Overall status at discharge: patient is back to baseline - Discharge Instructions Instructions: Peripheral Vascular Disorders (DC) Follow Up With: Ashish Montesinos MD [Partnered Physician] - 04/04/19 3:40 pm [facility] [Primary Care Provider[facility] - 03/16/19 11:15 am Forms: ED Satisfaction Letter - Diet and Activity Activity: resume usual activities as tolerated Diet: advance to your usual diet
--- NOTE | 2019-03-09 14:05 | Nephrology Progress Note ---
Date of Encounter: 03/09/19 Time of Encounter: 09:40 - Assessment and Plan (1) ESRD (end stage renal disease) on dialysis Status: Acute Current regimen is MWF in [place] HD completed yesterday. Renal diet Renal vitamins Strict I/O Avoid nephrotoxins and renal dose all medications. Will order additional UF or HD as needed. 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 (3) Frail elderly Status: Acute Consider PT/OT. (4) Nausea and vomiting Status: Acute Continue supportive care. Qualifiers: Qualified Code(s): R11.2 - Nausea with vomiting, unspecified Subjective Principal diagnosis: ESRD Interval history: Pt seen and examined, doing well. He is ready to be home. Denies chest pain or shortness of breath. Denies nausea, vomiting, diarrhea. Admits to right groin pain. Objective - Vital Signs Vital signs: Vital Signs Temp Pulse Resp BP Pulse Ox 03/09/19 10:56 98.2 F 100 18 103/60 94 03/09/19 07:33 98.8 F 100 18 122/69 95 03/09/19 07:26 19 93 03/09/19 04:17 98.8 F 102 19 122/64 93 03/09/19 00:30 123 03/09/19 00:20 98.6 F 98 19 113/67 92 03/08/19 21:10 125 03/08/19 20:24 16 92 03/08/19 19:42 98.4 F 108 20 109/79 93 03/08/19 16:59 111 18 92 03/08/19 16:03 98.1 F 113 18 111/51 93 03/08/19 14:55 97.4 F L 18 111/58 03/08/19 14:20 91/49 03/08/19 14:05 93/50 Intake and Output 03/08/19 03/09/19 03/09/19 23:59 07:59 15:59 Intake Total 240 / 1180 360 / 360 Balance 240 / -1334 360 / 360 Intake: Oral 240 / 480 360 / 360 Other: Meal Dinner Breakfast Percent of Meal Consumed 75% 25% Weight 74.1 kg Blood Glucose* 142 110 127 Patient Weight 03/09/19 23:59 Weight 74.1 kg - General Appearance General appearance: Present: well-developed, well-nourished EENT: Present: ATNC, hearing intact, vision intact Neck: Present: supple Respiratory: Present: clear, wheezing Cardiology: Present: edema (+1 edema noted to all four extremities.), normal S1, normal S2 Dialysis Vascular Access: Arteriovenous Fistula thrill: Yes bruit: Yes Gastrointestinal: Present: normoactive bowel sounds, no tenderness, no guarding Integumentary: Present: no rash, warm and dry Neurologic: Present: alert and oriented x3 Musculoskeletal: Present: no deformities, no erythema Psychiatric: Present: mood/affect appropriate, cooperative - Lab 03/09/19 09:06 03/08/19 01:56 Consult Discharge Plan - Plan Instructions: Peripheral Vascular Disorders (DC) Referrals: Ashish Montesinos MD [Partnered Physician] - 04/04/19 3:40 pm [facility] - 03/16/19 11:15 am
== END 2019-03-09 12:46 | disposition home or self-care (01) | DRG 907 ==
LOC: EMEROOARM 08:22 → 2NNU 12:10 → SUATTDRO 14:16 → INTOOBSV 14:16 → 2NNU 14:16
PROVIDERS: ADMIT Internal Medicine; ATTEND Family Medicine

== ENCOUNTER 2019-03-13 11:12 | Inpatient (IN) ==
[2019-03-13 12:02] LABS: Basophils % 0.3 %; Eosinophils # 0.2 K/mcL (0.0-0.6); Eosinophils % 3.2 %; Hematocrit 20.6 % (37.5-50.1); Hemoglobin 6.4 g/dL (12.9-16.9); Immature Granulocytes % 0.6 % (0-4); Lymphocytes # 1.1 K/mcL (0.6-4.6); Lymphocytes % 14.7 %; Mean Corpuscular HGB Conc 31.1 g/dL (31.6-35.5); Mean Corpuscular Hemoglobin 33.5 pg (28.0-33.3); Mean Corpuscular Volume 107.9 fL (83.0-100.0); Mean Platelet Volume 9.5 fL (9.4-12.4); Monocytes # 0.8 K/mcL (0.0-1.3); Monocytes % 11.2 %; Platelet Count 228 K/mcL (140-400); Red Blood Count 1.91 M/mcL (4.19-5.50); White Blood Count 7.2 K/mcL (4.3-11.1)
[2019-03-13 12:10] LABS: INR 1.2; Prothrombin Time 13.1 Seconds (9.4-12.1)
[2019-03-13 12:24] LABS: Calcium 7.5 mg/dL (8.6-10.3); Potassium 4.6 mEq/L (3.5-5.1)
--- NOTE | 2019-03-13 12:28 | Emergency Department Note ---
Disposition Clinical Impression: CKD (chronic kidney disease), stage III, Acute blood loss anemia Disposition: Admitted As Inpatient Condition: Fair Time of Disposition: 14:05 General Adult HPI - General Chief complaint: ED Recheck/Abnormal Lab/Rx Stated complaint: "low hemoglobin" Time Seen by Provider: 03/13/19 11:18 Nursing Notes Reviewed: Yes Vital Signs Reviewed: Yes - History of Present Illness Pain Scale: 0 - Related Data Home Medications Medication Instructions Recorded Confirmed Carvedilol [Coreg] 12.5 mg PO BID 05/27/18 03/13/19 Colchicine [Colcrys] 0.6 mg PO DAILY 05/27/18 03/13/19 Docusate [Colace] 200 mg PO DAILY 05/27/18 03/13/19 Albuterol Sulfate [Proair Hfa] 2 puff IH Q6H PRN 07/28/18 03/13/19 Budesonide/Formoterol 160/4.5 1 puff IH BIDR 07/28/18 03/13/19 [Symbicort 160/4.5] GlipiZIDE [Glucotrol] 2.5 mg PO DAILY 07/28/18 03/13/19 Allopurinol [Zyloprim 100 MG] 100 mg PO DAILY 02/23/19 03/13/19 Apixaban [Eliquis] 2.5 mg PO BID 02/23/19 03/13/19 Folic Acid/Vit B Complex and C 800 mcg PO DAILY 02/23/19 03/13/19 [Dialyvite 800 Chewable Wafer] Furosemide [Lasix] 40 mg PO AD 02/23/19 03/13/19 Ipratropium/Albuterol Neb [Duoneb] 3 ml IH Q6HR PRN 02/23/19 03/13/19 Melatonin 5 mg PO HS PRN 02/23/19 03/13/19 Ondansetron ODT [Zofran ODT] 4 mg PO Q6-8H PRN 02/23/19 03/13/19 Polyethylene Glycol 3350 [MiraLAX] 17 gm PO DAILY PRN 02/23/19 03/13/19 Ferric Citrate [Auryxia] 420 mg PO TIDWM 03/08/19 03/13/19 Previous Rx's Medication Instructions Recorded Atorvastatin [Lipitor] 20 mg PO HS #30 tablet 08/12/18 Aspirin Enteric Coated [Aspirin EC] 81 mg PO DAILY tablet. 03/01/19 Digoxin [Lanoxin] 0.0625 mg PO Q48H tablet 03/01/19 Calcium Acetate [Phos-LO] 1,334 mg PO TIDWM capsule 03/09/19 Calcium Acetate [Phos-LO] 667 mg PO DAILY capsule 03/09/19 Allergies Allergy/AdvReac Type Severity Reaction Status Date / Time meperidine [From Demerol] Allergy Hives Verified 02/23/19 21:53 Past Medical History - Past Medical History Medical history: Reports: atrial fibrillation, cardiomyopathy, CHF, coronary artery disease, hypertension, renal disease Surgical history: Reports: coronary bypass (CABG), herniorrhaphy, pacemaker/AICD Psychiatric history: Reports: no psych history - Social History Smoking Status: Never smoker Smokeless Tobacco Status: No Alcohol use: Reports: none Drug use: Reports: none Physical Exam - General General appearance: alert, in no apparent distress Course Vital Signs Temperature 98.7 F 03/13/19 11:15 Pulse Rate 71 03/13/19 11:15 Respiratory Rate 16 03/13/19 11:15 Blood Pressure 137/74 03/13/19 11:15 O2 Sat by Pulse Oximetry 98 03/13/19 11:15 Temperature 97.5 F L 03/13/19 13:58 Pulse Rate 75 03/13/19 13:58 Respiratory Rate 18 03/13/19 13:58 Blood Pressure 139/95 03/13/19 13:58 O2 Sat by Pulse Oximetry 97 03/13/19 15:12 Oxygen Delivery Oxygen Delivery Room Air Medical Decision Making - [facility] [place] Narrative Medical decision making narrative: [address] Calvillo who is on for nephrology. They will see the patient today as there thought is since he is getting blood he might get fluid overloaded will need dialysis. 1300 hrs.: Spoke with Dr. Ross who is on for vascular surgery discussed the case with him he said no further treatments from his perspective. We will plan on admitting through hospitalist with nephrology consulting. Start blood transfusion here. Patient's in agreement to the plan. - Lab Data Result diagrams: 03/13/19 11:41 03/13/19 11:41 Lab Results 03/13/19 03/13/19 03/13/19 Range/Units 11:41 11:41 11:41 WBC 7.2 (4.3-11.1) K/mcL RBC 1.91 L (4.19-5.50) M/mcL Hgb 6.4 L (12.9-16.9) g/dL Hct 20.6 L (37.5-50.1) % MCV 107.9 H (83.0-100.0) fL MCH 33.5 H (28.0-33.3) pg MCHC 31.1 L (31.6-35.5) g/dL RDW 21.0 H (11.5-14.5) % Plt Count 228 (140-400) K/mcL MPV 9.5 (9.4-12.4) fL Immature Gran % 0.6 (0-4) % Seg Neutrophils % 70.0 % Lymphocytes % 14.7 % Monocytes % 11.2 % Eosinophils % 3.2 % Basophils % 0.3 % Neutrophils # 5.0 (1.6-8.9) K/mcL Lymphocytes # 1.1 (0.6-4.6) K/mcL Monocytes # 0.8 (0.0-1.3) K/mcL Eosinophils # 0.2 (0.0-0.6) K/mcL Basophils # 0.0 (0.0-0.2) K/mcL PT (9.4-12.1) Seconds INR Sodium 133 L (136-145) mEq/L Potassium 4.6 (3.5-5.1) mEq/L Chloride 92 L (98-107) mEq/L Carbon Dioxide 28 (23-29) mEq/L BUN 100 H (8-23) mg/dL Creatinine 10.47 H (0.70-1.30) mg/dL Est GFR ( Amer) 6 L (> 60) Est GFR (Non-Af Amer) 5 L (> 60) BUN/Creatinine Ratio 10 (6-26) Glucose 58 L (70-105) mg/dL Calculated Osmolality 305 H (280-300) Calcium 7.5 L (8.6-10.3) mg/dL Blood Type O POSITIVE Antibody Screen NEGATIVE Crossmatch See Detail 03/13/19 Range/Units 11:41 WBC (4.3-11.1) K/mcL RBC (4.19-5.50) M/mcL Hgb (12.9-16.9) g/dL Hct (37.5-50.1) % MCV (83.0-100.0) fL MCH (28.0-33.3) pg MCHC (31.6-35.5) g/dL RDW (11.5-14.5) % Plt Count (140-400) K/mcL MPV (9.4-12.4) fL Immature Gran % (0-4) % Seg Neutrophils % % Lymphocytes % % Monocytes % % Eosinophils % % Basophils % % Neutrophils # (1.6-8.9) K/mcL Lymphocytes # (0.6-4.6) K/mcL Monocytes # (0.0-1.3) K/mcL Eosinophils # (0.0-0.6) K/mcL Basophils # (0.0-0.2) K/mcL PT 13.1 H (9.4-12.1) Seconds INR 1.2 Sodium (136-145) mEq/L Potassium (3.5-5.1) mEq/L Chloride (98-107) mEq/L Carbon Dioxide (23-29) mEq/L BUN (8-23) mg/dL Creatinine (0.70-1.30) mg/dL Est GFR ( Amer) (> 60) Est GFR (Non-Af Amer) (> 60) BUN/Creatinine Ratio (6-26) Glucose (70-105) mg/dL Calculated Osmolality (280-300) Calcium (8.6-10.3) mg/dL Blood Type Antibody Screen Crossmatch Critical Care Time Critical Care Time: Yes Total Critical Care Time: 43 Attestation: Excluding any separately billable procedures. Attestation Statement - Attestation Attestation: This documentation is done with the assistance of Dragon dictation. Despite efforts made to ensure accuracy, there may be inaccuracies in oil well service operator helper or spelling and typographical errors. I examined this patient and my medical decision-making was reviewed with the Resident Physician. I agree with the documented findings, disposition and treatment plan as described except to the extent set forth below. Patient was seen and evaluated by Dr. Bergeron, I agree with their evaluation and management plan, I supervised care the patient's stay. Patient presents today from dialysis. They did a hemoglobin monitor and it was low-dose they did not dialyze him. His hemoglobin was in the 6 range. He had a catheter done a week ago and he has a large hematoma over the groin. We looked and he had been inve stigated by vascular previously. No intervention was done. His hematomas dropped 2 points since then we repeated that today were in a do a transfusion we will speak with vascular and then nephrology also since he will need dialysis and then admission with hospitalist service. He is in agreement with plan. I reviewed the residents documentation and agree with the residents assessment and plan of care. I have personally had face to face time with the patient. (Brief History, Brief Exam, and MDM) I personally supervised and was present for the leal/critical portions of the following procedures completed by the resident: EKG was interpreted by the resident under my supervision, I agree with their interpretation.
[2019-03-13] MEDS ORDERED: 0.9 % Sodium Chloride 250 ML IVC PRN (12:45)
[2019-03-13] MEDS ORDERED: 0.9 % Sodium Chloride 1,000 ML PRIME SCH (12:45)
--- NOTE | 2019-03-13 13:14 | Emergency Department Note ---
Disposition Clinical Impression: CKD (chronic kidney disease), stage III, Acute blood loss anemia Disposition: Admitted As Inpatient [facility]: [facility] - Time of Disposition: 13:30 General Adult HPI - General Stated complaint: "low hemoglobin" Time Seen by Provider: 03/13/19 11:18 Source: patient, EMS Mode of arrival: EMS Limitations: no limitations Nursing Notes Reviewed: Yes Vital Signs Reviewed: Yes - History of Present Illness HPI Narrative: 73M witn PMHx of ESRD on dialysis MWF, afib, and CHF presents emergency department from dialysis with anemia. Patient recently had a heart catheter which resulted in a right femoral artery laceration and a large hematoma. He was readmitted and discharged from the hospital 4 days ago for his anemia. Upon discharge his hemoglobin was 6.1. Today when he went to dialysis's told that his hemoglobin was too low to have dialysis performed and he was transferred here. The patient denies any symptoms from his anemia including dizziness, lightheadedness, chest pain, shortness of breath, nausea and vomiting. Pain Scale: 0 - Related Data Home Medications Medication Instructions Recorded Confirmed Carvedilol [Coreg] 12.5 mg PO BID 05/27/18 03/08/19 Colchicine [Colcrys] 0.6 mg PO DAILY 05/27/18 03/08/19 Docusate [Colace] 200 mg PO DAILY 05/27/18 03/08/19 Albuterol Sulfate [Proair Hfa] 2 puff IH Q6H PRN 07/28/18 03/08/19 Budesonide/Formoterol 160/4.5 1 puff IH BIDR 07/28/18 03/08/19 [Symbicort 160/4.5] GlipiZIDE [Glucotrol] 2.5 mg PO DAILY 07/28/18 03/08/19 Allopurinol [Zyloprim 100 MG] 100 mg PO DAILY 02/23/19 03/08/19 Apixaban [Eliquis] 2.5 mg PO BID 02/23/19 03/08/19 Folic Acid/Vit B Complex and C 800 mcg PO DAILY 02/23/19 03/08/19 [Dialyvite 800 Chewable Wafer] Furosemide [Lasix] 40 mg PO AD 02/23/19 03/08/19 Ipratropium/Albuterol Neb [Duoneb] 3 ml IH Q6HR PRN 02/23/19 03/08/19 Melatonin 5 mg PO HS PRN 02/23/19 03/08/19 Ondansetron ODT [Zofran ODT] 4 mg PO Q6-8H PRN 02/23/19 03/08/19 Polyethylene Glycol 3350 [MiraLAX] 17 gm PO DAILY PRN 02/23/19 03/08/19 Ferric Citrate [Auryxia] 420 mg PO TIDWM 03/08/19 03/08/19 Previous Rx's Medication Instructions Recorded Atorvastatin [Lipitor] 20 mg PO HS #30 tablet 08/12/18 Aspirin Enteric Coated [Aspirin EC] 81 mg PO DAILY tablet. 03/01/19 Digoxin [Lanoxin] 0.0625 mg PO Q48H tablet 03/01/19 Calcium Acetate [Phos-LO] 1,334 mg PO TIDWM capsule 03/09/19 Calcium Acetate [Phos-LO] 667 mg PO DAILY capsule 03/09/19 Allergies Allergy/AdvReac Type Severity Reaction Status Date / Time meperidine [From Demerol] Allergy Hives Verified 02/23/19 21:53 All systems ED: reviewed and negative except as stated. Review of Systems: As Per HPI Constitutional: Denies: fever, chills, weakness Cardiovascular: Denies: chest pain, palpitations, dyspnea on exertion Respiratory: Denies: cough, dyspnea, wheezes Gastrointestinal: Denies: abdominal pain, nausea, vomiting Genitourinary: Denies: dysuria, hematuria Musculoskeletal: Denies: back pain, neck pain Integumentary: Denies: rash Neurological: Denies: headache Endocrine: Reports: fatigue Past Medical History - Past Medical History Attestation: Yes The following information was validated with the patient. Source: patient Medical history: Reports: atrial fibrillation, cardiomyopathy, CHF, coronary artery disease, hypertension, renal disease Surgical history: Reports: coronary bypass (CABG), herniorrhaphy, pacemaker/AICD Psychiatric history: Reports: no psych history - Social History Smoking Status: Never smoker Smokeless Tobacco Status: No Alcohol use: Reports: none Drug use: Reports: none Physical Exam - General Limitations: no limitations General appearance: alert, in no apparent distress - Head Head exam: atraumatic, normocephalic - Eye Eye exam: Present: normal appearance, PERRL, EOMI, other (Conjunctival pallor). Absent: conjunctival injection - Chest Chest inspection: Present: normal inspection. Absent: tenderness, rash - Respiratory Respiratory exam: Present: normal lung sounds bilaterally. Absent: wheezes - Cardiovascular Cardiovascular exam: Present: regular rate, irregular rhythm - Abdominal Exam Abdominal exam: Present: soft, Non-Tender. Absent: distention, guarding, rebound, rigidity - Extremities Exam Extremities exam: Present: tenderness, other (Large right thigh hematoma with ecchymosis trailing down the patient's right leg that is tender to palpation). Absent: pedal edema - Neurological Exam Neurological exam: Present: alert, oriented X3 - Psychiatric Psychiatric exam: Present: normal affect, normal mood - Skin Skin exam: Present: warm, dry, intact Course Vital Signs Temperature 98.7 F 03/13/19 11:15 Pulse Rate 71 03/13/19 11:15 Respiratory Rate 16 03/13/19 11:15 Blood Pressure 137/74 03/13/19 11:15 O2 Sat by Pulse Oximetry 98 03/13/19 11:15 Temperature 97.5 F L 03/13/19 13:58 Pulse Rate 75 03/13/19 13:58 Respiratory Rate 18 03/13/19 13:58 Blood Pressure 139/95 03/13/19 13:58 O2 Sat by Pulse Oximetry 97 03/13/19 13:45 Oxygen Delivery Oxygen Delivery Room Air Medical Decision Making - [facility] Narrative Medical decision making narrative: Patient presents with anemia with outpatient lab showing hemoglobin of 6. We will obtain EKG, basic labs, type and screen and plan on admission to the [facility] for anemia. 1300 - patient's repeat hemoglobin was 6.4. We spoke with Dr. Calvillo who will dialyze the patient once he becomes inpatient. We also spoke with Dr. Ross who is on-call for vascular surgery and states that he is not concerned for anything else with the patient's right leg. Patient has been accepted to the hospital by Dr. Cuevas for transfusion and dialysis. - Medical Records Medical records reviewed: Yes I reviewed the patient's medical records. - Lab Data Lab results reviewed: Yes I reviewed the patient's lab results. Result diagrams: 03/13/19 11:41 03/13/19 11:41 Lab Results 03/13/19 03/13/1903/13/19 Range/Units 11:41 11:41 11:41 WBC 7.2 (4.3-11.1) K/mcL RBC 1.91 L (4.19-5.50) M/mcL Hgb 6.4 L (12.9-16.9) g/dL Hct 20.6 L (37.5-50.1) % MCV 107.9 H (83.0-100.0) fL MCH 33.5 H (28.0-33.3) pg MCHC 31.1 L (31.6-35.5) g/dL RDW 21.0 H (11.5-14.5) % Plt Count 228 (140-400) K/mcL MPV 9.5 (9.4-12.4) fL Immature Gran % 0.6 (0-4) % Seg Neutrophils % 70.0 % Lymphocytes % 14.7 % Monocytes % 11.2 % Eosinophils % 3.2 % Basophils % 0.3 % Neutrophils # 5.0 (1.6-8.9) K/mcL Lymphocytes # 1.1 (0.6-4.6) K/mcL Monocytes # 0.8 (0.0-1.3) K/mcL Eosinophils # 0.2 (0.0-0.6) K/mcL Basophils # 0.0 (0.0-0.2) K/mcL PT (9.4-12.1) Seconds INR Sodium 133 L (136-145) mEq/L Potassium 4.6 (3.5-5.1) mEq/L Chloride 92 L (98-107) mEq/L Carbon Dioxide 28 (23-29) mEq/L BUN 100 H (8-23) mg/dL Creatinine 10.47 H (0.70-1.30) mg/dL Est GFR ( Amer) 6 L (> 60) Est GFR (Non-Af Amer) 5 L (> 60) BUN/Creatinine Ratio 10 (6-26) Glucose 58 L (70-105) mg/dL Calculated Osmolality 305 H (280-300) Calcium 7.5 L (8.6-10.3) mg/dL Blood Type O POSITIVE Antibody Screen NEGATIVE Crossmatch See Detail 03/13/19 Range/Units 11:41 WBC (4.3-11.1) K/mcL RBC (4.19-5.50) M/mcL Hgb (12.9-16.9) g/dL Hct (37.5-50.1) % MCV (83.0-100.0) fL MCH (28.0-33.3) pg MCHC (31.6-35.5) g/dL RDW (11.5-14.5) % Plt Count (140-400) K/mcL MPV (9.4-12.4) fL Immature Gran % (0-4) % Seg Neutrophils % % Lymphocytes % % Monocytes % % Eosinophils % % Basophils % % Neutrophils # (1.6-8.9) K/mcL Lymphocytes # (0.6-4.6) K/mcL Monocytes # (0.0-1.3) K/mcL Eosinophils # (0.0-0.6) K/mcL Basophils # (0.0-0.2) K/mcL PT 13.1 H (9.4-12.1) Seconds INR 1.2 Sodium (136-145) mEq/L Potassium (3.5-5.1) mEq/L Chloride (98-107) mEq/L Carbon Dioxide (23-29) mEq/L BUN (8-23) mg/dL Creatinine (0.70-1.30) mg/dL Est GFR ( Amer) (> 60) Est GFR (Non-Af Amer) (> 60) BUN/Creatinine Ratio (6-26) Glucose (70-105) mg/dL Calculated Osmolality (280-300) Calcium (8.6-10.3) mg/dL Blood Type Antibody Screen Crossmatch - Radiology Data Radiology results reviewed: Yes I reviewed the patient's radiology results. - EKG Data EKG #1 EKG attestation: Yes I reviewed and interpreted this EKG. EKG results narrative: EKG obtained Heart rate 73 bpm, QRS duration 107, QT 390, QTc 412 Atrial fibrillation without any ST segment elevation. Minimal ST segment depression in leads V5 and V6. Nonspecific T-wave abnormalities throughout leads. No significant changes when compared to previous EKG dated 03/07/2019
[2019-03-13] MEDS ORDERED: 0.9 % Sodium Chloride 250 ML ONE (13:15)
--- NOTE | 2019-03-13 14:31 | Nephrology Consult Note ---
Date of Encounter: 03/13/19 Time of Encounter: 14:28 Assessment and Plan (1) ESRD (end stage renal disease) on dialysis Current Visit: No Status: Acute Patient had heart cath on 02/27 which resulted in a pseudoaneurysm which was repaired on 03/07/[address] Montesinos. HD MWF, last treatment was Wednesday without complication. HD planned for today. Strict I/O Avoid nephrotoxins, renal dose all medications. Daily weights. (2) Acute blood loss anemia Current Visit: Yes Status: Acute Hgb is 6.7, 2 units PRBCs ordered by primary team. May give transfusions in HD. (3) Edema Current Visit: No Status: Acute Qualifiers: Edema type: generalized Qualified Code(s): R60.1 - Generalized edema (4) Right groin pain Current Visit: Yes Status: Acute Pt c/o of worsening groin pain and leg pain. Bruising and ecchymotic area painful to touch, and appears to be getting worse. Recommend imaging of Right groin/leg. History of Present Illness - Reason for Consult Consult date: 03/13/19 end stage renal disease - Chief Complaint anemia - History of Present Illness Mr. Dumont is a 73 year old male who presented to ED with Hgb of 6.7. He is s/p procedure with Dr. Montesinos on 03/07/19 for a right femoral artery pseudoaneurysm repair. Pt was discharged 2 days later. PMH: atrial fibrillation, cardiomyopathy, CHF, coronary artery disease, hypertension, and ESRD. Current regimen is MWF in [place]. Last treatment was Wednesday without complication. Labs were drawn in outpatient HD unit and the was called today and instructed to bring Mr. Dumont in for low hgb. Denies melena, hemoptysis, dizziness, nausea, vomiting, chest pain. Admits to chronically feeling short of breath. [facility] were consulted to manage HD. Plan for Hd today. Lives with at home. Denies etoh, illicit drug use, or tobacco use. No FH of CKD or HD. 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 Past Med Surg Social Fam HX - Past Medical History Medical history: atrial fibrillation, cardiomyopathy, CHF, coronary artery disease, hypertension, renal disease Additional medical history: gout Psychiatric history: no psych history - Past Surgical History Surgical History: coronary bypass (CABG), herniorrhaphy, pacemaker/AICD Additional surgical history: bowel resection - Social History Smoking Status: Never smoker Smokeless Tobacco Status: No Alcohol use: none Drug use: none - Family History Father Adopted: No Living Status: Hx Family Cardiac Disorders: Yes ([place]) Hx Family Respiratory Disorders: No Hx Family Cancer: No Hx Family GI Disorders: No Hx Family Endocrine Disorder: No Hx Family Neuromuscular Disorders: No Hx Family Neurologic Disorders: No Hx Family HEENT Disorders: No Hx Family Autoimmune Disorders: No Grandfather Family Member Ethnicity: Non- Living Status: Hx Family Cardiac Disorders: Yes Hx Family Respiratory Disorders: No Hx Family Cancer: Yes (mothers side) Hx Family Endocrine Disorder: No Hx Family Neuromuscular Disorders: No Hx Family Neurologic Disorders: No Hx Family HEENT Disorders: No Hx Family Autoimmune Disorders: No Medications and Allergies Carvedilol [Coreg] 12.5 mg PO BID 05/27/18 [History] Colchicine [Colcrys] 0.6 mg PO DAILY 05/27/18 [History] Docusate [Colace] 200 mg PO DAILY 05/27/18 [History] Albuterol Sulfate [Proair Hfa] 2 puff IH Q6H PRN 07/28/18 [History] Budesonide/Formoterol 160/4.5 [Symbicort 160/4.5] 1 puff IH BIDR 07/28/18 [History] GlipiZIDE [Glucotrol] 2.5 mg PO DAILY 07/28/18 [History] Atorvastatin [Lipitor] 20 mg PO HS #30 tablet 08/12/18 [Rx] Allopurinol [Zyloprim 100 MG] 100 mg PO DAILY 02/23/19 [History] Apixaban [Eliquis] 2.5 mg PO BID 02/23/19 [History] Folic Acid/Vit B Complex and C [Dialyvite 800 Chewable Wafer] 800 mcg PO DAILY 02/23/19 [History] Furosemide [Lasix] 40 mg PO AD 02/23/19 [History] Ipratropium/Albuterol Neb [Duoneb] 3 ml IH Q6HR PRN 02/23/19 [History] Melatonin 5 mg PO HS PRN 02/23/19 [History] Ondansetron ODT [Zofran ODT] 4 mg PO Q6-8H PRN 02/23/19 [History] Polyethylene Glycol 3350 [MiraLAX] 17 gm PO DAILY PRN 02/23/19 [History] Aspirin Enteric Coated [Aspirin EC] 81 mg PO DAILY tablet. 03/01/19 [Rx] Digoxin [Lanoxin] 0.0625 mg PO Q48H tablet 03/01/19 [Rx] Ferric Citrate [Auryxia] 420 mg PO TIDWM 03/08/19 [History] Calcium Acetate [Phos-LO] 1,334 mg PO TIDWM capsule 03/09/19 [Rx] Calcium Acetate [Phos-LO] 667 mg PO DAILY capsule 03/09/19 [Rx] Allergy/AdvReac Type Severity Reaction Status Date / Time meperidine [From Demerol] Allergy Hives Verified 02/23/19 21:53 Review of Systems All Systems review (narrative): The remainder of the systems are negative. Constitutional: fatigue, no chills, no fever(s) Cardiovascular: no chest pain, no dyspnea, no edema Respiratory: no cough, no dyspnea Gastrointestinal: no change in bowel habits, no diarrhea, no hematemesis, no hematochezia, no melena, no nausea, no vomiting Exam - Vital Signs Vital signs: Initial Vital Signs Temp Pulse Resp BP Pulse Ox 98.7 F 71 16 137/74 98 03/13/19 11:15 03/13/19 11:15 03/13/19 11:15 03/13/19 11:15 03/13/19 11:15 Vital Signs - Last 8 Hours Temp Pulse Resp BP Pulse Ox 03/13/19 13:58 97.5 F L 75 18 139/95 03/13/19 13:45 97.5 F L 77 18 132/75 97 03/13/19 13:43 97.5 F L 75 18 132/75 03/13/19 11:15 98.7 F 71 16 137/74 98 Intake and Output 03/12/19 03/13/19 03/13/19 23:59 07:59 15:59 Intake Total 350 / 350 Balance 350 / 350 Intake: Blood Product 350 / 350 Rbcs Leuko Poor As-1 Unit 350 / 350 [id number] Other: Weight 77.111 kg Patient Weight 03/13/19 23:59 Weight 77.111 kg - General Appearance General appearance: well-developed, well-nourished EENT: ATNC, hearing intact, vision intact Neck: supple Respiratory: clear Cardiology: edema (Edema noted to all four extremities, non pitting. ), normal S1, normal S2 - Dialysis Access Dialysis Vascular Access: Arteriovenous Fistula thrill: Yes bruit: Yes Gastrointestinal: normoactive bowel sounds, no tenderness, no guarding Integumentary: no rash, warm and dry Neurologic: alert and oriented x3 Additional Comments: Erythema and ecchymossis noted to RLE, appears to be larger than when he was discharged, painful to touch. Psychiatric: mood/affect appropriate, cooperative Results - Lab Results 03/13/19 11:41 03/13/19 11:41 Most recent lab results 03/13/19 11:41 Calcium 7.5 L Consult Discharge Plan - Plan [facility]errals: [facility] [Primary Care Provider] -
[2019-03-13] MEDS ORDERED: Ondansetron ODT 4 MG TAB.RAPDIS SL PRN (15:09)
[2019-03-13] MEDS ORDERED: Naloxone 0.4 MG/ML INJ IVP PRN (15:09)
[2019-03-13] MEDS ORDERED: Furosemide 40 MG TABLET PO SCH (15:15)
[2019-03-13] MEDS ORDERED: Isovue-370 500 ML BOTTLE IVP ONE (15:15)
--- NOTE | 2019-03-13 15:31 | Internal Med History&Physical ---
Date of Encounter: 03/13/19 Time of Encounter: 15:23 Internal Medicine - H&P: HPI Chief complaint: low hemoglobin Admitted From: Home Plans for Post Hospital Care: Home History of present illness: Mr. Dumont is a 73 year old male with PMH of atrial fibrillation, ESRD, CAD, HTN, and she will be presenting for low hemoglobin. Patient was recently discharged after right femoral artery repair secondary to superficial ps eudoaneurysm and large hematoma. On discharge, hemoglobin was 6.1. Patient was clinically stable and was to follow-up in dialysis. Patient went for dialysis this morning. Hemoglobin was found to be low. Patient receives dialysis Wednesday, Wednesday, Wednesday. Patient reports that he is not having more pain at his surgical site but does admit that he thinks it is more tight, swollen and blue. He has not had any trouble ambulating. Hb in ED today 6.4, which is higher than discharge 4 days prior. Nephrology has been consulted and patient will be receiving 2 units PRBC while receiving dialysis. ED physician spoke with vascular surgery and they have no further recommendations/interventions at this time. Cr is up to 10.47. BP and HR are stable. Patient has no increased oxygen demand. Past Med Surg Social Fam HX - Past Medical History Medical history: atrial fibrillation, cardiomyopathy, CHF, coronary artery disease, hypertension, renal disease Additional medical history: gout Psychiatric history: no psych history - Past Surgical History Surgical History: coronary bypass (CABG), herniorrhaphy, pacemaker/AICD Additional surgical history: bowel resection - Social History Smoking Status: Never smoker Smokeless Tobacco Status: No Alcohol use: none Drug use: none - Family History Father Adopted: No Living Status: Hx Family Cardiac Disorders: Yes ([place]) Hx Family Respiratory Disorders: No Hx Family Cancer: No Hx Family GI Disorders: No Hx Family Endocrine Disorder: No Hx Family Neuromuscular Disorders: No Hx Family Neurologic Disorders: No Hx Family HEENT Disorders: No Hx Family Autoimmune Disorders: No Grandfather Family Member Ethnicity: Non- Living Status: Hx Family Cardiac Disorders: Yes Hx Family Respiratory Disorders: No Hx Family Cancer: Yes (mothers side) Hx Family Endocrine Disorder: No Hx Family Neuromuscular Disorders: No Hx Family Neurologic Disorders: No Hx Family HEENT Disorders: No Hx Family Autoimmune Disorders: No Internal Medicine - H&P: Meds Carvedilol [Coreg] 12.5 mg PO BID 05/27/18 [History] Colchicine [Colcrys] 0.6 mg PO DAILY 05/27/18 [History] Docusate [Colace] 200 mg PO DAILY 05/27/18 [History] Albuterol Sulfate [Proair Hfa] 2 puff IH Q6H PRN 07/28/18 [History] Budesonide/Formoterol 160/4.5 [Symbicort 160/4.5] 1 puff IH BIDR 07/28/18 [History] GlipiZIDE [Glucotrol] 2.5 mg PO DAILY 07/28/18 [History] Atorvastatin [Lipitor] 20 mg PO HS #30 tablet 08/12/18 [Rx] Allopurinol [Zyloprim 100 MG] 100 mg PO DAILY 02/23/19 [History] Apixaban [Eliquis] 2.5 mg PO BID 02/23/19 [History] Folic Acid/Vit B Complex and C [Dialyvite 800 Chewable Wafer] 800 mcg PO DAILY 02/23/19 [History] Furosemide [Lasix] 40 mg PO AD 02/23/19 [History] Ipratropium/Albuterol Neb [Duoneb] 3 ml IH Q6HR PRN 02/23/19 [History] Melatonin 5 mg PO HS PRN 02/23/19 [History] Ondansetron ODT [Zofran ODT] 4 mg PO Q6-8H PRN 02/23/19 [History] Polyethylene Glycol 3350 [MiraLAX] 17 gm PO DAILY PRN 02/23/19 [History] Aspirin Enteric Coated [Aspirin EC] 81 mg PO DAILY tablet. 03/01/19 [Rx] Digoxin [Lanoxin] 0.0625 mg PO Q48H tablet 03/01/19 [Rx] Ferric Citrate [Auryxia] 420 mg PO TIDWM 03/08/19 [History] Calcium Acetate [Phos-LO] 1,334 mg PO TIDWM capsule 03/09/19 [Rx] Calcium Acetate [Phos-LO] 667 mg PO DAILY capsule 03/09/19 [Rx] Allergy/AdvReac Type Severity Reaction Status Date / Time meperidine [From Demerol] Allergy Hives Verified 02/23/19 21:53 All Systems PM: A 10-system review of systems was performed and is negative for pertinent findings except as documented above in the HPI. Review of systems: Constitutional: No weight loss, no fever, no chills ENT/Mouth: No hearing changes, no congestion, no dysphagia Eyes: No redness, no discharge, no vision changes Cardiovascular: No chest pain, no shortness of breath, no palpitations Respiratory: No cough, no dyspnea on exertion GI: No nausea, no vomiting, no diarrhea, no constipation, no blood in stool Genitourinary: No dysuria, no urinary frequency, no hematuria Musculoskeletal: No limitation in range of motion right lower extremity Skin: Patient notices more swelling, tight skin and blueness over area right inner thigh Neuro: No weakness, no numbness, no loss of consciousness Psych: No anxiety, no depression, no changes in sleep - Constitutional Vitals: Temp Pulse Resp BP Pulse Ox 97.5 F L 75 18 139/95 97 03/13/19 13:58 03/13/19 13:58 03/13/19 13:58 03/13/19 13:58 03/13/19 15:12 General appearance: Present: A&O X 3, no acute distress, answers questions appropriately Exam: GENERAL APPEARANCE: Well developed, well nourished, alert and cooperative, and appears to be in no acute distress. HEENT: Normocephalic/atraumatic, PERRLA. NECK: Supple, nontender without lymphadenopathy. CARDIOVASCULAR: Normal S1, S2; regular rate and rhythm; no murmurs. RESPIRATORY: Clear to auscultation bilaterally; no rales, rhonchi or wheezing. ABDOMEN: Soft, nondistended, nontender; bowel sounds present. MUSKULOSKELETAL: No limitations in range of motion. EXTREMITIES: Large tight hematoma right anterior thigh with some blueness going down left leg; painful to touch; good pulses in b/l lower extremities NEUROLOGICAL: No focal neurological deficits. SKIN: Skin normal color, texture and turgor with no lesions or eruptions. PSYCHIATRIC: Judgment and reasoning; no hallucinations; normal affect. Internal Med - H&P Results - Labs CBC & Chem 7: 03/13/19 11:41 03/13/19 11:41 Labs: Short CBC 03/13/19 Range/Units 11:41 WBC 7.2 (4.3-11.1) K/mcL Hgb 6.4 L (12.9-16.9) g/dL Hct 20.6 L (37.5-50.1) % Plt Count 228 (140-400) K/mcL Neutrophils # 5.0 (1.6-8.9) K/mcL BMP 03/13/19 11:41 Sodium 133 L Potassium 4.6 Chloride 92 L Carbon Dioxide 28 BUN 100 H Creatinine 10.47 H Glucose 58 L Calcium 7.5 L - Assessment and Plan (1) Acute blood loss anemia Current Visit: Yes Status: Acute Assessment and plan: Hb down to 6.4; 6.1 prior to last discharge Hematoma more tight with echymosis Vascular surgery called by ED physician with no new recommendations Plan: 2 units PRBC during dialysis CTA after to evaluate Trend H&H Hold eliquis (2) ESRD (end stage renal disease) on dialysis Current Visit: No Status: Acute Assessment and plan: MWF dialysis Plan: nephrology on board (3) Atrial fibrillation Current Visit: No Status: Chronic Assessment and plan: Hold eliquis 2/2 acute anemia Qualifiers: Atrial fibrillation type: chronic Qualified Code(s): I48.2 - Chronic atrial fibrillation (4) Chronic systolic (congestive) heart failure Current Visit: No Status: Chronic Assessment and plan: Not in acute exacerbation: continue home meds (5) Essential hypertension Current Visit: No Status: Chronic Assessment and plan: Continue home meds (6) DVT prophylaxis Current Visit: No Status: Acute Assessment and plan: SCD - Time Spent With Patient Total time spent is greater than 50% in coordination of care (as documented) at patient's floor/unit and/or counseling patient: 35 minutes
[2019-03-13] MEDS: Calcium Acetate 667 MG CAPSULE PO SCH (18:13)
[2019-03-13] MEDS: *HR* Digoxin 0.125 MG TABLET PO SCH (18:13)
[2019-03-13] MEDS: Budesonide/Formoterol 160/4.5 1 PUFF INH IH SCH (21:37)
[2019-03-13 21:40] LABS: Hematocrit 28.9 % (37.5-50.1)
[2019-03-13 21:46] LABS: Hemoglobin 9.4 g/dL (12.9-16.9)
[2019-03-13] MEDS: (Ferric Citrate [Auryxia] 420 MG) PO SCH (23:25)
[2019-03-14 05:40] LABS: Hematocrit 25.1 % (37.5-50.1); Hemoglobin 8.2 g/dL (12.9-16.9); Mean Corpuscular HGB Conc 32.7 g/dL (31.6-35.5); Mean Corpuscular Hemoglobin 32.8 pg (28.0-33.3); Mean Platelet Volume 9.8 fL (9.4-12.4); Platelet Count 246 K/mcL (140-400); Red Cell Distribution Width 21.7 % (11.5-14.5); White Blood Count 6.7 K/mcL (4.3-11.1)
[2019-03-14 05:43] LABS: Mean Corpuscular Volume 100.4 fL (83.0-100.0)
[2019-03-14 06:03] LABS: Calcium 7.7 mg/dL (8.6-10.3); Potassium 4.2 mEq/L (3.5-5.1)
[2019-03-14] MEDS ORDERED: 0.9 % Sodium Chloride 250 ML IVC PRN (07:01)
[2019-03-14] MEDS: Calcium Acetate 667 MG CAPSULE PO SCH ×3 (07:37→16:51)
[2019-03-14] MEDS: Renal Vitamin 1 CAP CAPSULE PO SCH (07:37)
[2019-03-14] MEDS: Furosemide 40 MG TABLET PO SCH ×2 (07:37→16:51)
[2019-03-14] MEDS: Colchicine 0.6 MG TABLET PO SCH (07:37)
[2019-03-14] MEDS: (Ferric Citrate [Auryxia] 420 MG) PO SCH (07:37)
[2019-03-14] MEDS: Budesonide/Formoterol 160/4.5 1 PUFF INH IH SCH ×2 (07:39→20:04)
[2019-03-14] MEDS ORDERED: Calcium Acetate 667 MG CAPSULE PO SCH ×2 (09:00)
--- NOTE | 2019-03-14 11:27 | Electrocardiograph Report ---
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
--- NOTE | 2019-03-14 11:34 | Nephrology Progress Note ---
Date of Encounter: 03/14/19 Time of Encounter: 11:31 - Assessment and Plan (1) ESRD (end stage renal disease) on dialysis Current Visit: No Status: Acute Patient had heart cath on 02/27 which resulted in a pseudoaneurysm which was repaired on 03/07/[address] Montesinos. HD completed yesterday, s/p 2 units PRBCs. HD completed yesterday, UF in progress for today. Strict I/O Recommend trending H/H in am, if stable may go home from a renal standpoint. Avoid nephrotoxins, renal dose all medications. Daily weights. (2) Acute blood loss anemia Current Visit: Yes Status: Acute Hgb is 8.5 s/p 2 units PRBCs ordered by primary team. May give transfusions in HD. (3) Edema Current Visit: No Status: Acute Qualifiers: Edema type: generalized Qualified Code(s): R60.1 - Generalized edema (4) Right groin pain Current Visit: Yes Status: Acute Pt c/o of worsening groin pain and leg pain. Bruising and ecchymotic area painful to touch, and appears to be getting worse. Imaging reviewed, no further recommendations per vascular. Subjective Principal diagnosis: anemia, ESRD Interval history: Pt seen and examined, is overall feeling much better. Denies pain in right leg/groin, admits to numbness. Denies chest pain or shortness of breath. Denies nausea, vomiting, diarrhea. Objective - Vital Signs Vital signs: Vital Signs Temp Pulse Resp BP Pulse Ox 03/14/19 11:15 139/63 03/14/19 11:00 158/73 03/14/19 10:45 154/75 03/14/19 10:30 146/69 03/14/19 10:15 159/68 03/14/19 10:00 138/66 03/14/19 09:45 124/65 03/14/19 09:30 149/70 03/14/19 09:15 141/59 03/14/19 09:00 135/59 03/14/19 08:45 130/51 03/14/19 08:30 99.2 F 17 130/73 03/14/19 07:41 18 92 03/14/19 06:27 97.8 F 70 16 156/71 94 03/14/19 03:29 98.9 F 77 17 137/72 94 03/13/19 23:53 97.9 F 65 17 148/76 93 03/13/19 21:37 16 93 03/13/19 20:12 97.7 F 55 17 154/80 92 03/13/19 19:40 97.6 F 18 146/88 03/13/19 19:30 132/67 03/13/19 19:15 151/74 03/13/19 19:00 157/64 03/13/19 18:45 138/76 03/13/19 18:30 135/69 03/13/19 18:15 126/70 03/13/19 18:10 97.4 F L 90 18 123/70 03/13/19 18:00 108/75 03/13/19 17:57 97.5 F L 88 18 118/71 03/13/19 17:45 152/70 03/13/19 17:42 97.4 F L 81 16 124/74 03/13/19 17:30 140/65 03/13/19 17:15 117/77 03/13/19 17:00 97.6 F 78 18 139/77 03/13/19 16:45 146/69 03/13/19 16:30 139/79 03/13/19 15:15 97.5 F L 18 131/77 03/13/19 15:12 97 03/13/19 13:58 97.5 F L 75 18 139/95 03/13/19 13:45 97.5 F L 77 18 132/75 97 03/13/19 13:43 97.5 F L 75 18 132/75 Intake and Output 03/13/19 03/14/19 03/14/19 23:59 07:59 15:59 Intake Total 1050 / 2000 860 / 860 Output Total 3950 / 3950 Balance -2900 / -1950 860 / 860 Intake: Oral 360 / 360 Blood Product 1050 / 1400 Rbcs Leuko Poor As-1 Unit 350 / 700 [id number] Rbcs Leuko Poor As-3 Ph Unit 700 / 700 [id number] Intake, Rinseback and Flushes 500 / 500 Output: Urine 0 / 0 Total Dialysis (HD) Output 3950 / 3950 Other: Meal Breakfast Percent of Meal Consumed 90% Stool Size Moderate # Bowel Movements 1 Weight 77.5 kg Hemodialysis Net Fluid Removed 3000 2762 (mL) - General Appearance General appearance: Present: well-developed, well-nourished EENT: Present: ATNC, hearing intact, vision intact Neck: Present: supple Respiratory: Present: clear, wheezing Cardiology: Present: edema (+ 1 pitting edema noted to right groin/leg .), normal S1, normal S2 Dialysis Vascular Access: Arteriovenous Fistula thrill: Yes bruit: Yes Gastrointestinal: Present: normoactive bowel sounds, no tenderness, no guarding Integumentary: Present: no rash, warm and dry Neurologic: Present: alert and oriented x3 Musculoskeletal: Present: no deformities, no erythema Psychiatric: Present: mood/affect appropriate, cooperative - Lab 03/14/19 04:43 03/14/19 04:43 Most recent lab results 03/14/19 04:43 Calcium 7.7 L Consult Discharge Plan - Plan Referrals: [facility] [Primary Care Provider] -
--- NOTE | 2019-03-14 13:29 | Internal Med Progress Note ---
Hospitalist Progress Note - Encounter Date of Encounter: 03/14/19 Time of Encounter: 13:27 - Subjective Interval History: Patient seen and examined. No acute events overnight. Patient states he feels better and his leg is less tight. He has no dyspnea or chest pain. - Exam Vitals: Temp Pulse Resp BP Pulse Ox 97.8 F 75 18 142/66 93 03/14/19 12:03 03/14/19 12:03 03/14/19 12:03 03/14/19 12:03 03/14/19 12:03 Exam: GENERAL APPEARANCE: Well developed, well nourished, alert and cooperative, and appears to be in no acute distress. HEENT: Normocephalic/atraumatic, PERRLA. NECK: Supple, nontender without lymphadenopathy. CARDIOVASCULAR: Normal S1, S2; regular rate and rhythm; no murmurs. RESPIRATORY: Clear to auscultation bilaterally; no rales, rhonchi or wheezing. ABDOMEN: Soft, nondistended, nontender; bowel sounds present. MUSKULOSKELETAL: No limitations in range of motion. EXTREMITIES: hematoma less painful and smaller in size; good pulses in b/l lower extremities NEUROLOGICAL: No focal neurological deficits. SKIN: Skin normal color, texture and turgor with no lesions or eruptions. PSYCHIATRIC: Judgment and reasoning; no hallucinations; normal affect. - Assessment and Plan (1) Acute blood loss anemia Current Visit: Yes Status: Acute Assessment and Plan: Hb down to 6.4; 6.1 prior to last discharge Hematoma more tight with echymosis Vascular surgery called by ED physician with no new recommendations CTA showed that hematoma has shrunk in size Hb up to 8.2 Possible that leg was more tight with echymosis 2/2 volume overload vs actual worsening hematoma Plan: Continue to monitor H&H overnight Hold eliquis (2) ESRD (end stage renal disease) on dialysis Current Visit: No Status: Acute Assessment and Plan: MWF dialysis Patient required additional round of dialysis today due to volume overload; likely 2/2 receiving 2 units PRBC Plan: nephrology on board (3) Atrial fibrillation Current Visit: No Status: Chronic Assessment and Plan: Hold eliquis 2/2 acute anemia Will need to be evaluated outpatient for resumption of anticoagulation bleeding stable (4) Chronic systolic (congestive) heart failure Current Visit: No Status: Chronic Assessment and Plan: Not in acute exacerbation: continue home meds (5) Essential hypertension Current Visit: No Status: Chronic (6) DVT prophylaxis Current Visit: No Status: Acute - Time Spent with Patient Total time spent is greater than 50% in coordination of care (as documented) at patient's floor/unit and/or counseling patient: Internal Medicine: Result - Labs CBC & Chem 7: 03/14/19 04:43 03/14/19 04:43 Labs: Short CBC 03/13/19 03/14/19 Range/Units 20:50 04:43 WBC 6.7 (4.3-11.1) K/mcL Hgb 9.4 L D 8.2 L (12.9-16.9) g/dL Hct 28.9 L 25.1 L (37.5-50.1) % Plt Count 246 (140-400) K/mcL BMP 03/14/19 04:43 Sodium 134 L Potassium 4.2 Chloride 96 L Carbon Dioxide 29 BUN 54 H Creatinine 6.92 H Glucose 96 Calcium 7.7 L - ABG Interpretation ABG results: PT/INR, D-dimer PT 13.1 Seconds (9.4-12.1) H 03/13/19 11:41 - Impressions Impressions Lower Extremity CTA 03/14/19 07:44 IMPRESSION: CTA is unremarkable showing no evidence of significant stenosis and no contrast extravasation. Large soft tissue hematoma in the anteromedial deep subcutaneous fat of the upper right thigh with slight decreased size or contraction and aging of hematoma content. Persistent infiltration involving the subcutaneous fat throughout the anterior portion of the right proximal thigh. D/ / Saravanan Person MD / Saravanan Person MD Interpreting Provider: Saravanan Person MD Consult Discharge Plan - Plan Referrals: [facility] [Primary Care Provider] - (3) Atrial fibrillation Qualifiers: Atrial fibrillation type: chronic
[2019-03-14] MEDS: Ipratropium/Albuterol Neb 3 ML IH PRN (14:57)
[2019-03-14 17:47] LABS: Hematocrit 26.2 % (37.5-50.1); Hemoglobin 8.6 g/dL (12.9-16.9)
[2019-03-14] MEDS: Melatonin 3 MG TABLET PO PRN (23:14)
[2019-03-15 01:51] LABS: Hematocrit 23.7 % (37.5-50.1); Hemoglobin 7.7 g/dL (12.9-16.9); Mean Corpuscular HGB Conc 32.5 g/dL (31.6-35.5); Mean Corpuscular Hemoglobin 33.3 pg (28.0-33.3); Mean Corpuscular Volume 102.6 fL (83.0-100.0); Platelet Count 205 K/mcL (140-400); Red Blood Count 2.31 M/mcL (4.19-5.50); Red Cell Distribution Width 20.9 % (11.5-14.5); White Blood Count 6.5 K/mcL (4.3-11.1)
[2019-03-15 02:05] LABS: Potassium 4.8 mEq/L (3.5-5.1)
[2019-03-15] MEDS: Budesonide/Formoterol 160/4.5 1 PUFF INH IH SCH ×2 (07:43→19:56)
[2019-03-15] MEDS: Colchicine 0.6 MG TABLET PO SCH (08:22)
[2019-03-15] MEDS: *HR* Digoxin 0.125 MG TABLET PO SCH (08:22)
[2019-03-15] MEDS: Calcium Acetate 667 MG CAPSULE PO SCH ×3 (08:22→16:32)
[2019-03-15] MEDS: Furosemide 40 MG TABLET PO SCH (08:23)
[2019-03-15] MEDS: Renal Vitamin 1 CAP CAPSULE PO SCH (08:23)
--- NOTE | 2019-03-15 09:48 | Nephrology Progress Note ---
Date of Encounter: 03/15/19 Time of Encounter: 09:46 - Assessment and Plan (1) ESRD (end stage renal disease) on dialysis Current Visit: No Status: Acute Patient had heart cath on 02/27 which resulted in a pseudoaneurysm which was repaired on 03/07/[address] Montesinos. HD in progress for today. Would not recommend discharge today given anemia even after PRBC replacement. Strict I/O Avoid nephrotoxins, renal dose all medications. Daily weights. (2) Acute blood loss anemia Current Visit: Yes Status: Acute Hgb is 7.7 s/p 2 units PRBCs ordered by primary team. May give transfusions in HD. Will check LDH and Reticulocyte count given anemia. CMP in the morning. (3) Edema Current Visit: No Status: Acute Qualifiers: Edema type: generalized Qualified Code(s): R60.1 - Generalized edema (4) Right groin pain Current Visit: Yes Status: Acute Pt c/o of worsening groin pain and leg pain. Bruising and ecchymotic area painful to touch, and appears to be getting worse. Imaging reviewed, no further recommendations per vascular. Subjective Principal diagnosis: anemia, ESRD Interval history: Pt seen and examined, is overall feeling much better. Denies pain in right leg/groin, admits to numbness. Denies chest pain or shortness of breath. Denies nausea, vomiting, diarrhea. States he is ready to go home. Objective - Vital Signs Vital signs: Vital Signs Temp Pulse Resp BP Pulse Ox 03/15/19 08:32 97 03/15/19 08:13 15 97 03/15/19 07:36 97.9 F 75 17 133/73 99 03/15/19 04:07 97.8 F 80 18 150/78 98 03/14/19 23:56 98.0 F 83 18 118/85 93 03/14/19 20:04 16 98 03/14/19 18:39 98.5 F 86 18 109/53 99 03/14/19 14:58 18 96 03/14/19 14:36 98.1 F 85 18 153/70 92 03/14/19 12:03 97.8 F 75 18 142/66 93 03/14/19 12:00 97.6 F 15 143/51 03/14/19 11:30 145/62 03/14/19 11:15 139/63 10/01/19 11:00 158/73 03/14/19 10:45 154/75 03/14/19 10:30 146/69 03/14/19 10:15 159/68 03/14/19 10:00 138/66 Intake and Output 03/14/19 03/15/19 03/15/19 23:59 07:59 15:59 Intake Total 150 / 1610 480 / 480 Output Total 0 / 0 Balance 150 / -890 480 / 480 Intake: Oral 150 / 1110 480 / 480 Output: Urine 0 / 0 Other: Meal Breakfast Percent of Meal Consumed 100% Weight 77.8 kg - General Appearance General appearance: Present: well-developed, well-nourished EENT: Present: ATNC, hearing intact, vision intact Neck: Present: supple Respiratory: Present: clear Cardiology: Present: edema (trace non pitting edema noted to all four extremities.), normal S1, normal S2 Dialysis Vascular Access: Arteriovenous Fistula thrill: Yes bruit: Yes Gastrointestinal: Present: normoactive bowel sounds, no tenderness, no guarding Integumentary: Present: no rash, warm and dry Neurologic: Present: alert and oriented x3 Musculoskeletal: Present: no deformities, no erythema Psychiatric: Present: mood/affect appropriate, cooperative - Lab 03/15/19 00:17 03/15/19 00:17 Most recent lab results 03/15/19 00:17 Calcium 8.0 L Consult Discharge Plan - Plan [facility]errals: [facility] [Primary Care Provider] -
[2019-03-15 15:11] LABS: Immature Reticulocyte % 30.5 % (11.0-38.0); Retculocyte # 0.15 M/mcL (0.05-0.10); Reticulocyte % 6.6 % (1.6-2.8)
[2019-03-15 16:15] LABS: Hematocrit 24.1 % (37.5-50.1); Hemoglobin 7.8 g/dL (12.9-16.9)
--- NOTE | 2019-03-15 17:02 | Internal Med Progress Note ---
Hospitalist Progress Note - Encounter Date of Encounter: 03/15/19 Time of Encounter: 16:58 - Subjective Interval History: I have seen and evaluated the patient at bedside. Patient reported still having right groin pain but less than when he came to the ED. denies chest pain, shortness of breath, nausea or vomiting. - Exam Vitals: Temp Pulse Resp BP Pulse Ox 98.5 F 70 16 120/63 99 03/15/19 15:57 03/15/19 15:57 03/15/19 15:57 03/15/19 15:57 03/15/19 15:57 Exam: Vitals: Reviewed General: Alert and oriented x4. In mild distress due to right groin pain. Cardiovascular: irregularly irregular, normal S1 & S2, no rubs, murmurs or gallops. Lungs: CTA b/l, no wheezes or crackles. Abdomen: Soft, non-tender, no rigidity. NABS in all 4 quadrants. Extremities: 2+ edema on the right lower extr, 1+ edema on the left. right groin hematoma. Neurological: Normal cognition and motor skills. Rest of the physical exam is non contributory - Assessment and Plan (1) Acute blood loss anemia Current Visit: Yes Status: Acute Assessment and Plan: patient s/p Right groin exploration with direct repair of right superficial femoral artery CTA showed that hematoma has shrunk in size patient s/p 2 units of PRBCs transfusion Plan: H&H remain stable post transfusion. continue to monitor. will transfuse per protocol. continue to hold eliquis (2) ESRD (end stage renal disease) on dialysis Current Visit: No Status: Acute Assessment and Plan: avoid nephrotoxic medications. renal replacement therapy per nephrology recommendations. (3) Atrial fibrillation Current Visit: No Status: Chronic Assessment and Plan: rate controlled a bb a digoxin. will continue to hold apixaban due to right groin hematoma requiring blood transfusion. patient to follow up as outpatient w [facility] cardiology to discuss about resuming anticoagulation. patient could be a candidate for the watchman procedure (4) Chronic systolic (congestive) heart failure Current Visit: No Status: Chronic Assessment and Plan: chest is clear to auscultation. with 2+ edema on the lower extr b/l. c/w furosemide, fluids restriction to 1.5 litters a day and strict intake and output. (5) Essential hypertension Current Visit: No Status: Chronic Assessment and Plan: BP is well controlled on a bb and furosemide. will continue to monitor and adjust medications as needed. DVT Prophylaxis: intermittent pneumatic compression for dvt prophylaxis - Summary of Assessment and Plan Summary of Assessment and Plan: Patient to remain in the hospital due to anemia. will repeat H&H tomorrow. possible discharge in the next 24-48 hours. - Time Spent with Patient Total time spent is greater than 50% in coordination of care (as documented) at patient's floor/unit and/or counseling patient: Greater than 35 minutes (45) Plan of Care Discussed with: patient (hiw and the nurse.) Internal Medicine: Result - Labs CBC & Chem 7: 03/15/19 15:44 03/15/19 00:17 Labs: Short CBC 03/14/19 03/15/19 03/15/19 Range/Units 17:17 00:17 15:44 WBC 6.5 (4.3-11.1) K/mcL Hgb 8.6 L 7.7 L 7.8 L (12.9-16.9) g/dL Hct 26.2 L 23.7 L 24.1 L (37.5-50.1) % Plt Count 205 (140-400) K/mcL BMP 03/15/19 00:17 Sodium 132 L Potassium 4.8 Chloride 93 L Carbon Dioxide 27 BUN 68 H Creatinine 8.30 H Glucose 71 Calcium 8.0 L - ABG Interpretation ABG results: PT/INR, D-dimer PT 13.1 Seconds (9.4-12.1) H 03/13/19 11:41 Consult Discharge Plan - Plan [facility]errals: [facility] [Primary Care Provider] - (3) Atrial fibrillation Qualifiers: Atrial fibrillation type: unspecified Qualified Code(s): I48.91 - Unspecified atrial fibrillation
[2019-03-15] MEDS: Melatonin 3 MG TABLET PO PRN (21:45)
[2019-03-16 05:21] LABS: Hemoglobin 7.7 g/dL (12.9-16.9); Mean Corpuscular HGB Conc 32.1 g/dL (31.6-35.5); Mean Corpuscular Hemoglobin 32.8 pg (28.0-33.3); Mean Corpuscular Volume 102.1 fL (83.0-100.0); Mean Platelet Volume 9.7 fL (9.4-12.4); Platelet Count 208 K/mcL (140-400); Red Blood Count 2.35 M/mcL (4.19-5.50); Red Cell Distribution Width 20.1 % (11.5-14.5); White Blood Count 7.1 K/mcL (4.3-11.1)
[2019-03-16 05:39] LABS: Calcium 7.9 mg/dL (8.6-10.3); Potassium 4.6 mEq/L (3.5-5.1)
[2019-03-16 05:41] LABS: Alanine Aminotransferase < 3 Units/L (7-52); Albumin 2.6 g/dL (3.5-5.7); Alkaline Phosphatase 49 Units/L (34-104); Aspartate Amino Transferase 31 Units/L (13-39); BUN/Creatinine Ratio 7 (6-26); Bilirubin,Total 0.5 mg/dL (0.3-1.0); Blood Urea Nitrogen 49 mg/dL (8-23); Carbon Dioxide 27 mEq/L (23-29); Chloride 98 mEq/L (98-107); Globulin 2.7 g/dL (2.4-3.5); Glucose 85 mg/dL (70-105); Magnesium 2.4 mg/dL (1.6-2.6); Osmolality,Calculated 290 (280-300); Phosphorous 4.3 mg/dL (2.7-4.5); Potassium 4.6 mEq/L (3.5-5.1); Sodium 134 mEq/L (136-145); Total Protein 5.3 g/dL (6.4-8.9); eGFR For African Americans 10 (> 60); eGFR For Non-African Americans 8 (> 60)
[2019-03-16] MEDS: Budesonide/Formoterol 160/4.5 1 PUFF INH IH SCH ×2 (07:17→21:42)
[2019-03-16] MEDS: Ipratropium/Albuterol Neb 3 ML IH PRN ×3 (07:17→21:42)
[2019-03-16] MEDS: Calcium Acetate 667 MG CAPSULE PO SCH ×3 (07:49→17:27)
[2019-03-16] MEDS: Colchicine 0.6 MG TABLET PO SCH (07:49)
[2019-03-16] MEDS: Renal Vitamin 1 CAP CAPSULE PO SCH (07:49)
[2019-03-16] MEDS: Furosemide 40 MG TABLET PO SCH ×2 (07:49→17:27)
--- NOTE | 2019-03-16 09:31 | Nephrology Progress Note ---
Date of Encounter: 03/16/19 Time of Encounter: 09:29 - Assessment and Plan (1) ESRD (end stage renal disease) on dialysis Current Visit: No Status: Acute Patient had heart cath on 02/27 which resulted in a pseudoaneurysm which was repaired on 03/07/[address] Montesinos. HD completed yesterday, no complications. Strict I/O Avoid nephrotoxins, renal dose all medications. Daily weights. (2) Acute blood loss anemia Current Visit: Yes Status: Acute Hgb is 7.7 s/p 2 units PRBCs ordered by primary team. May give transfusions in HD. Will check LDH and Reticulocyte noted. CMP noted. (3) Edema Current Visit: No Status: Acute Qualifiers: Edema type: generalized Qualified Code(s): R60.1 - Generalized edema (4) Right groin pain Current Visit: Yes Status: Acute Pt denies pain, only numbness. Bruising and ecchymotic area painful to touch. Imaging reviewed, no further recommendations per vascular. Subjective Principal diagnosis: anemia, ESRD Interval history: Pt seen and examined, is overall feeling much better. Would like to rest today, no UF if at all possible. Denies pain in right leg/groin, admits to numbness. Denies chest pain or shortness of breath. Denies nausea, vomiting, diarrhea. Objective - Vital Signs Vital signs: Vital Signs Temp Pulse Resp BP Pulse Ox 03/16/19 07:53 97 03/16/19 07:30 97.9 F 76 17 150/62 97 03/16/19 07:17 16 98 03/16/19 03:26 98.0 F 88 17 117/45 98 03/15/19 23:41 98.1 F 82 16 158/74 98 03/15/19 19:56 17 96 03/15/19 19:41 97.8 F 78 17 137/64 95 03/15/19 15:57 98.5 F 70 16 120/63 99 03/15/19 12:55 97.7 F 18 133/49 03/15/19 12:30 120/39 03/15/19 12:15 120/45 03/15/19 12:00 129/43 03/15/19 11:45 126/52 03/15/19 11:30 131/47 03/15/19 11:15 136/54 03/15/19 11:00 133/55 03/15/19 10:45 146/81 03/15/19 10:30 153/48 03/15/19 10:15 145/55 03/15/19 10:00 161/60 03/15/19 09:45 156/56 03/15/19 09:30 140/65 Intake and Output 03/15/19 03/16/19 03/16/19 23:59 07:59 15:59 Intake Total 60 / 4380 Output Total 0 / 3600 0 / 0 Balance 60 / 780 0 / 0 Intake: Oral 60 / 780 Output: Urine 0 / 0 0 / 0 Other: Weight 73.9 kg - General Appearance General appearance: Present: well-developed, well-nourished EENT: Present: ATNC, hearing intact, vision intact Neck: Present: supple Respiratory: Present: wheezing Cardiology: Present: edema (trace edema noted to all four extremities.), normal S1, normal S2 Dialysis Vascular Access: Arteriovenous Fistula thrill: Yes bruit: Yes Gastrointestinal: Present: normoactive bowel sounds, no tenderness, no guarding Integumentary: Present: no rash, warm and dry Neurologic: Present: alert and oriented x3 Musculoskeletal: Present: no deformities, no erythema Psychiatric: Present: mood/affect appropriate, cooperative - Lab 03/16/19 04:31 03/16/19 04:31 Most recent lab results 03/16/19 03/16/19 03/16/19 04:31 04:31 04:31 Calcium 7.9 L 8.0 L Phosphorus 4.3 Magnesium 2.4 Consult Discharge Plan - Plan Referrals: [facility] [Primary Care Provider] -
--- NOTE | 2019-03-16 12:53 | Internal Med Progress Note ---
Hospitalist Progress Note - Encounter Date of Encounter: 03/16/19 Time of Encounter: 12:50 - Subjective Interval History: I have seen and evaluated the patient at bedside. Patient reported feeling well, reported the pain in the groin area continues to decrease, denies chest pain, nausea or vomiting. - Exam Vitals: Temp Pulse Resp BP Pulse Ox 97.7 F 73 17 139/62 98 03/16/19 11:05 03/16/19 11:05 03/16/19 11:05 03/16/19 11:05 03/16/19 11:05 Exam: Vitals: Reviewed General: Alert and oriented x4. In no distress Cardiovascular: irregularly irregular, normal S1 & S2, no rubs, murmurs or gallops. Lungs: CTA b/l, no wheezes or crackles. Abdomen: Soft, non-tender, no rigidity. NABS in all 4 quadrants. Extremities: 2+ edema on the right lower extr, 1+ edema on the left. right groin hematoma, resolving. Neurological: No focal neurological abnormalities. Rest of the physical exam is non contributory - Assessment and Plan (1) Acute blood loss anemia Current Visit: Yes Status: Acute Assessment and Plan: patient s/p Right groin exploration with direct repair of right superficial femoral artery patient s/p 2 units of PRBCs transfusion Plan: H&H remain stable post transfusion. continue to monitor. will transfuse 1 unit of PRBCs tomorrow during HD. Hold eliquis (2) ESRD (end stage renal disease) on dialysis Current Visit: No Status: Acute Assessment and Plan: avoid nephrotoxic medications. renal replacement therapy per nephrology recommendations. HD MWF. (3) Atrial fibrillation Current Visit: No Status: Chronic Assessment and Plan: rate controlled a bb a digoxin. continue to hold oral anticoagulant. (4) Chronic systolic (congestive) heart failure Current Visit: No Status: Chronic Assessment and Plan: chest is clear to auscultation. with 2+ edema on the lower extr b/l. On furosemide, fluids restriction to 1.5 litters a day and strict intake and output. (5) Essential hypertension Current Visit: No Status: Chronic Assessment and Plan: BP is well controlled Plan c/w on a bb and furosemide. DVT Prophylaxis: Intermittent pneumatic compression for dvt prophylaxis. no chemical dvt prophylaxis due to right groin hematoma. - Summary of Assessment and Plan Summary of Assessment and Plan: patient to remain in the hospital due to anemia. potential discharge tomorrow after HD. - Time Spent with Patient Total time spent is greater than 50% in coordination of care (as documented) at patient's floor/unit and/or counseling patient: Greater than 35 minutes (45) Plan of Care Discussed with: patient (his family at bedside and the nurse.) Internal Medicine: Result - Labs CBC & Chem 7: 03/16/19 04:31 03/16/19 04:31 Labs: Short CBC 03/15/19 03/16/19 Range/Units 15:44 04:31 WBC 7.1 (4.3-11.1) K/mcL Hgb 7.8 L 7.7 L (12.9-16.9) g/dL Hct 24.1 L 24.0 L (37.5-50.1) % Plt Count 208 (140-400) K/mcL BMP 03/15/19 03/16/19 03/16/19 00:17 04:31 04:31 Sodium 132 L 133 L 134 L Potassium 4.8 4.6 4.6 Chloride 93 L 99 98 Carbon Dioxide 27 26 27 BUN 68 H 49 H 49 H Creatinine 8.30 H 6.61 H 6.66 H Glucose 71 84 85 Calcium 8.0 L 7.9 L 8.0 L Liver Function 03/16/19 Range/Units 04:31 Total Bilirubin 0.5 (0.3-1.0) mg/dL AST 31 (13-39) Units/L ALT < 3 L (7-52) Units/L Alkaline Phosphatase 49 (34-104) Units/L Albumin 2.6 L (3.5-5.7) g/dL - ABG Interpretation ABG results: PT/INR, D-dimer PT 13.1 Seconds (9.4-12.1) H 03/13/19 11:41 Consult Discharge Plan - Plan [facility]errals: [facility] [Primary Care Provider] - (3) Atrial fibrillation Qualifiers: Atrial fibrillation type: unspecified Qualified Code(s): I48.91 - Unspecified atrial fibrillation
[2019-03-16] MEDS ORDERED: 0.9 % Sodium Chloride 250 ML IVC SCH (13:00)
[2019-03-17] MEDS: Ipratropium/Albuterol Neb 3 ML IH PRN (04:34)
[2019-03-17 04:42] LABS: Basophils % 0.3 %; Eosinophils # 0.2 K/mcL (0.0-0.6); Eosinophils % 2.4 %; Hematocrit 24.6 % (37.5-50.1); Hemoglobin 7.7 g/dL (12.9-16.9); Immature Granulocytes % 0.3 % (0-4); Lymphocytes # 0.8 K/mcL (0.6-4.6); Lymphocytes % 10.5 %; Mean Corpuscular HGB Conc 31.3 g/dL (31.6-35.5); Mean Corpuscular Hemoglobin 32.9 pg (28.0-33.3); Mean Corpuscular Volume 105.1 fL (83.0-100.0); Mean Platelet Volume 9.7 fL (9.4-12.4); Monocytes # 0.8 K/mcL (0.0-1.3); Monocytes % 10.9 %; Neutrophils # 5.4 K/mcL (1.6-8.9); Platelet Count 184 K/mcL (140-400); Red Blood Count 2.34 M/mcL (4.19-5.50); Segmented Neutrophils % 75.6 %; White Blood Count 7.2 K/mcL (4.3-11.1)
[2019-03-17 05:00] LABS: Calcium 8.6 mg/dL (8.6-10.3); Magnesium 2.5 mg/dL (1.6-2.6); Potassium 5.1 mEq/L (3.5-5.1)
[2019-03-17] MEDS ORDERED: 0.9 % Sodium Chloride 250 ML IVC PRN (06:51)
[2019-03-17] MEDS ORDERED: Ipratropium/Albuterol Neb 3 ML ONE (07:32)
[2019-03-17] MEDS: Colchicine 0.6 MG TABLET PO SCH (08:13)
[2019-03-17] MEDS: Calcium Acetate 667 MG CAPSULE PO SCH ×3 (08:13→17:03)
[2019-03-17] MEDS: Renal Vitamin 1 CAP CAPSULE PO SCH (08:13)
[2019-03-17] MEDS: *HR* Digoxin 0.125 MG TABLET PO SCH (08:14)
[2019-03-17] MEDS: Furosemide 40 MG TABLET PO SCH (08:14)
[2019-03-17] MEDS: Ipratropium/Albuterol Neb 3 ML IH SCH ×3 (09:41→22:32)
[2019-03-17] MEDS: Budesonide/Formoterol 160/4.5 1 PUFF INH IH SCH ×2 (09:41→22:32)
[2019-03-17 09:42] LABS: ABG Base Excess 6 mEq/L (-2 to 3); ABG HCO3 31 mEq/L (21-27); ABG Oxygen Saturation 91 % (95-98); ABG PCO2 44 mmHg (35-45); ABG PH 7.45 pH Units (7.32-7.45); ABG PO2 58 mmHg (85-104); ABG TCO2 32 mEq/L (20-26)
[2019-03-17] MEDS ORDERED: 0.9 % Sodium Chloride 1,000 ML ONE (09:55)
--- NOTE | 2019-03-17 10:33 | Internal Med Progress Note ---
Hospitalist Progress Note - Encounter Date of Encounter: 03/17/19 Time of Encounter: 10:30 - Subjective Interval History: I have seen and evaluated the patient at bedside. Patient reported shortness of breath, denies chest pain, nausea or vomiting. denies groin pain or abdominal pain. - Exam Vitals: Temp Pulse Resp BP Pulse Ox 97.6 F 99 18 116/61 91 03/17/19 09:15 03/17/19 06:29 03/17/19 09:41 03/17/19 10:00 03/17/19 09:41 Exam: Vitals: Reviewed General: Alert and oriented x4. In mild distress due to shortness of breath. Cardiovascular: irregularly irregular, normal S1 & S2, no rubs, murmurs or gallops. Lungs: scattered b/l expiratory wheezes, no rales or crackles. Abdomen: Soft, non-tender, no rigidity. NABS in all 4 quadrants. Extremities: 2+ edema on the right lower extr, 1+ edema on the left. right groin hematoma. Neurological: No focal neurological abnormalities. Rest of the physical exam is non contributory - Assessment and Plan (1) Acute blood loss anemia Current Visit: Yes Status: Acute Assessment and Plan: H&H remains stable. patient being transfuse 1 unit of PRBCs during HD today. will re-check H&H 1 hour post transfusion today and tomorrow morning. c/w ferrous sulfate. (2) ESRD (end stage renal disease) on dialysis Current Visit: No Status: Acute Assessment and Plan: patient scheduled for HD today. On furosemide 40mg/PO daily, patient reported he makes very little urine. (3) Atrial fibrillation Current Visit: No Status: Chronic Assessment and Plan: rate controlled on carvedilol 12.5 mg by mouth twice a day. off anticoagulation due to recent hematoma of the groin. (4) Chronic systolic (congestive) heart failure Current Visit: No Status: Chronic Assessment and Plan: patient reported shortness of breath today with minimal exertion. Plan: chest ray ordered: with signs of volume overload. c/w fluids restriction to 1.5 litters a day, daily weight and strict intake and output. On furosemide patient undergoing HD today. (5) Essential hypertension Current Visit: No Status: Chronic Assessment and Plan: BP is well controlled on furosemide and carvedilol. (6) COPD (chronic obstructive pulmonary disease) Current Visit: Yes Status: Acute Assessment and Plan: Patient is bilateral scatter expiratory wheezing. Plan: started on methyl-prednisolone 40mg/IV BID Continue bronchodilators every 4 hours scheduled. ABG On Symbicort. Incentive spirometry. DVT Prophylaxis: Intermittent pneumatic compression for DVT prophylaxis. No chemical DVT prophylaxis due to right groin hematoma. - Summary of Assessment and Plan Summary of Assessment and Plan: Patient to remain in the hospital due to shortness of breath, secondary to possible acute bronchitis versus CHF exacerbation. - Time Spent with Patient Total time spent is greater than 50% in coordination of care (as documented) at patient's floor/unit and/or counseling patient: Greater than 35 minutes (45) Plan of Care Discussed with: patient (and the nurse.) Internal Medicine: Result - Labs CBC & Chem 7: 03/17/19 03:42 03/17/19 03:42 Labs: Short CBC 03/17/19 Range/Units 03:42 WBC 7.2 (4.3-11.1) K/mcL Hgb 7.7 L (12.9-16.9) g/dL Hct 24.6 L (37.5-50.1) % Plt Count 184 (140-400) K/mcL Neutrophils # 5.4 (1.6-8.9) K/mcL BMP 03/17/19 03:42 Sodium 130 L Potassium 5.1 Chloride 97 L Carbon Dioxide 25 BUN 60 H Creatinine 8.22 H Glucose 88 Calcium 8.6 - ABG Interpretation ABG results: ABG ABG pH 7.45 pH Units (7.32-7.45) 03/17/19 09:38 ABG pCO2 44 mmHg (35-45) 03/17/19 09:38 ABG pO2 58 mmHg (85-104) L 03/17/19 09:38 ABG O2 Saturation 91 % (95-98) L 03/17/19 09:38 PT/INR, D-dimer PT 13.1 Seconds (9.4-12.1) H 03/13/19 11:41 - Impressions Impressions Chest X-Ray 03/17/19 09:33 IMPRESSION: Overall findings suggestive of CHF decompensation. D/ / Mookie Valerio / Mookie Valerio Interpreting Provider: Mookie Valerio Consult Discharge Plan - Plan Referrals: [facility] [Primary Care Provider] - (3) Atrial fibrillation Qualifiers: Atrial fibrillation type: unspecified Qualified Code(s): I48.91 - Unspecified atrial fibrillation (6) COPD (chronic obstructive pulmonary disease) Qualifiers: COPD type: unspecified COPD Qualified Code(s): J44.9 - Chronic obstructive pulmonary disease, unspecified
[2019-03-17] MEDS ORDERED: MethylPREDNISolone 40 MG/ML VIAL IVP SCH (12:00)
--- NOTE | 2019-03-17 13:55 | Nephrology Progress Note ---
Date of Encounter: 03/17/19 Time of Encounter: 12:00 - Assessment and Plan (1) ESRD (end stage renal disease) on dialysis Current Visit: No Status: Acute Continue HD with UF as tolerated Continue strict I/O Continue avoid nephrotoxins, renal dose all medications. Continue daily weights. (2) Acute blood loss anemia Current Visit: Yes Status: Acute Hgb is 7.7 s/p 2 units PRBCs ordered by primary team. Transfusion parameters per primary team (3) Edema Current Visit: No Status: Acute Mostly resolved except on RLE from recent bleed Qualifiers: Edema type: generalized Qualified Code(s): R60.1 - Generalized edema (4) Right groin pain Current Visit: Yes Status: Acute Pt denies pain, only numbness. Bruising and ecchymotic area painful to touch. Imaging reviewed, no further recommendations per vascular. Subjective Principal diagnosis: anemia, ESRD Interval history: Pt seen and examined on HD with at bedside with no new complaints Objective - Vital Signs Vital signs: Vital Signs Temp Pulse Resp BP Pulse Ox 03/17/19 12:57 97.6 F 15 165/69 03/17/19 12:30 151/77 03/17/19 12:15 142/65 03/17/19 12:00 143/55 03/17/19 11:45 151/77 03/17/19 11:30 141/98 03/17/19 11:15 138/83 03/17/19 11:00 156/85 03/17/19 10:50 97.4 F L 85 18 150/73 03/17/19 10:45 142/62 03/17/19 10:30 135/82 03/17/19 10:21 97.5 F L 99 20 147/71 03/17/19 10:15 150/85 03/17/19 10:06 97.7 F 94 19 135/81 03/17/19 10:00 116/61 03/17/19 09:45 106/64 03/17/19 09:41 18 91 03/17/19 09:30 130/88 03/17/19 09:15 97.6 F 19 135/94 03/17/19 08:25 97 03/17/19 06:29 98.2 F 99 18 107/59 97 03/17/19 04:34 17 98 03/17/19 03:06 97.6 F 92 16 157/70 99 03/16/19 23:14 98.7 F 84 19 107/56 99 03/16/19 21:42 18 99 03/16/19 19:03 98.2 F 78 18 135/69 98 03/16/19 16:05 98.1 F 82 17 139/84 99 03/16/19 16:04 16 93 Intake and Output 03/16/19 03/17/19 03/17/19 23:59 07:59 15:59 Intake Total 1440 / 1440 Output Total 3850 / 3850 Balance -2410 / -2410 Intake: Oral 240 / 240 Blood Product 700 / 700 Rbcs Leuko Poor As-3 2nd Unit 700 / 700 [id number] Intake, Rinseback and Flushes 500 / 500 Output: Urine 0 / 0 Total Dialysis (HD) Output 3850 / 3850 Other: Meal Breakfast Percent of Meal Consumed 90% Weight 73.9 kg Hemodialysis Net Fluid Removed 3000 (mL) Patient Weight 03/17/19 23:59 Weight 73.9 kg - General Appearance General appearance: Present: chronically ill, frail EENT: Present: ATNC, mucous membranes moist Neck: Present: no JVD, supple Respiratory: Present: clear Cardiology: Present: edema (RLE edema trace), normal S1, normal S2 Dialysis Vascular Access: Arteriovenous Fistula thrill: Yes bruit: Yes Gastrointestinal: Present: no tenderness, no guarding Integumentary: Present: warm and dry Neurologic: Present: no focal deficit Musculoskeletal: Present: no deformities Psychiatric: Present: mood/affect appropriate, cooperative - Lab 03/19/19 21:10 03/19/19 08:32 Most recent lab results 03/17/19 03/17/19 03:42 09:38 ABG pH 7.45 ABG pCO2 44 ABG pO2 58 L ABG HCO3 31 H ABG O2 Saturation 91 L Calcium 8.6 Magnesium 2.5 Consult Discharge Plan - Plan Referrals: [facility] [Primary Care Provider] -
[2019-03-17 14:35] LABS: Basophils % 0.6 %; Eosinophils # 0.2 K/mcL (0.0-0.6); Eosinophils % 2.3 %; Hematocrit 29.3 % (37.5-50.1); Hemoglobin 9.8 g/dL (12.9-16.9); Immature Granulocytes % 1.5 % (0-4); Lymphocytes # 0.5 K/mcL (0.6-4.6); Lymphocytes % 8.1 %; Mean Corpuscular HGB Conc 33.4 g/dL (31.6-35.5); Mean Corpuscular Volume 98.7 fL (83.0-100.0); Mean Platelet Volume 10.2 fL (9.4-12.4); Monocytes # 0.5 K/mcL (0.0-1.3); Monocytes % 7.8 %; Neutrophils # 5.3 K/mcL (1.6-8.9); Nucleated Red Blood Cells 0.5 /100 WBC (0); Platelet Count 216 K/mcL (140-400); Red Blood Count 2.97 M/mcL (4.19-5.50); Red Cell Distribution Width 18.7 % (11.5-14.5); Segmented Neutrophils % 79.7 %; White Blood Count 6.6 K/mcL (4.3-11.1)
[2019-03-17] MEDS ORDERED: methylPREDNISolone 125 MG/2 ML VIAL IVP ONE (16:47)
[2019-03-17] MEDS: MethylPREDNISolone 40 MG/ML VIAL IVP SCH (23:13)
[2019-03-18] MEDS: Ipratropium/Albuterol Neb 3 ML IH SCH ×4 (04:08→21:55)
[2019-03-18 05:07] LABS: Hematocrit 30.1 % (37.5-50.1); Hemoglobin 9.8 g/dL (12.9-16.9); Mean Corpuscular HGB Conc 32.6 g/dL (31.6-35.5); Mean Corpuscular Hemoglobin 33.1 pg (28.0-33.3); Mean Corpuscular Volume 101.7 fL (83.0-100.0); Mean Platelet Volume 9.7 fL (9.4-12.4); Platelet Count 222 K/mcL (140-400); Red Blood Count 2.96 M/mcL (4.19-5.50); Red Cell Distribution Width 18.6 % (11.5-14.5); White Blood Count 7.3 K/mcL (4.3-11.1)
[2019-03-18 05:30] LABS: Calcium 8.7 mg/dL (8.6-10.3); Potassium 4.7 mEq/L (3.5-5.1)
[2019-03-18] MEDS: Colchicine 0.6 MG TABLET PO SCH (08:18)
[2019-03-18] MEDS: Furosemide 40 MG TABLET PO SCH ×2 (08:19→16:14)
[2019-03-18] MEDS: Renal Vitamin 1 CAP CAPSULE PO SCH (08:19)
[2019-03-18] MEDS: MethylPREDNISolone 40 MG/ML VIAL IVP SCH ×2 (08:19→16:11)
[2019-03-18] MEDS: Calcium Acetate 667 MG CAPSULE PO SCH ×3 (08:19→16:11)
[2019-03-18] MEDS: Budesonide/Formoterol 160/4.5 1 PUFF INH IH SCH ×2 (09:40→21:55)
--- NOTE | 2019-03-18 13:44 | Internal Med Progress Note ---
Hospitalist Progress Note - Encounter Date of Encounter: 03/18/19 Time of Encounter: 13:42 - Subjective Interval History: I have seen and evaluated the patient at bedside. patient reported significant improvement in his breathing today, denies shortness of breath, nausea or vomiting. denies chest pain, reports discomfort in his right groin area. - Exam Vitals: Temp Pulse Resp BP Pulse Ox 97.9 F 78 17 134/63 93 03/18/19 10:20 03/18/19 10:20 03/18/19 10:20 03/18/19 10:20 03/18/19 10:20 Exam: Vitals: Reviewed General: Alert and oriented x4. In no distress Cardiovascular: irregularly irregular, normal S1 & S2, no rubs, murmurs or gallops. Lungs: CTA b/l, no wheezes, rales or crackles. Abdomen: Soft, non-tender, no rigidity. NABS in all 4 quadrants. Extremities: 2+ edema on the right lower extr, 1+ edema on the left. right groin hematoma, slightly tender to touch. Neurological: No focal neurological abnormalities. Rest of the physical exam is non contributory - Assessment and Plan (1) COPD (chronic obstructive pulmonary disease) Current Visit: Yes Status: Acute Assessment and Plan: chest is clear to auscultation. Plan decrease methyl-prednisoline to 40mg/IV BID c/w incentive spirometry On bronchodilators Q4RT and symbicort (2) Acute blood loss anemia Current Visit: Yes Status: Acute Assessment and Plan: H&H remains stable. patient s/p 3 units of PRBCs transfused. Plan c/w ferrous sulfate. will monitor H&H and transfuse per protocol (3) ESRD (end stage renal disease) on dialysis Current Visit: No Status: Acute Assessment and Plan: Renal replacement therapy M,W,F. patient not volume overload, chest clear to ausculation. c/w furosemide 40mg/PO daily. avoid nephrotoxic medications (4) Atrial fibrillation Current Visit: No Status: Chronic Assessment and Plan: Rate controlled on carvedilol, digoxin. off anticoagulation due to recent hematoma in the right groin (5) Chronic systolic (congestive) heart failure Current Visit: No Status: Chronic Assessment and Plan: significant improvement on his breathing today. denies chest pain, nausea or vomiting Plan: On fluids restriction to 1.5 litters a day, daily weight and strict intake and output. On furosemide 40mg/PO daily (6) Essential hypertension Current Visit: No Status: Chronic Assessment and Plan: BP is well controlled on carvedilol and furosemide. DVT Prophylaxis: Intermittent pneumatic compression for dvt prophylaxis. No chemical dvt prophylaxis due to acute blood loss anemia. - Summary of Assessment and Plan Summary of Assessment and Plan: Patient to remain in the hospital due to resolving bronchitis. on IV steroids. - Time Spent with Patient Total time spent is greater than 50% in coordination of care (as documented) at patient's floor/unit and/or counseling patient: Greater than 35 minutes (40) Plan of Care Discussed with: patient (his and the nurse.) Internal Medicine: Result - Labs CBC & Chem 7: 03/18/19 04:54 03/18/19 04:54 Labs: Short CBC 03/17/19 03/18/19 Range/Units 14:10 04:54 WBC 6.6 7.3 (4.3-11.1) K/mcL Hgb 9.8 L D 9.8 L (12.9-16.9) g/dL Hct 29.3 L 30.1 L (37.5-50.1) % Plt Count 216 222 (140-400) K/mcL Neutrophils # 5.3 (1.6-8.9) K/mcL BMP 03/18/19 04:54 Sodium 132 L Potassium 4.7 Chloride 95 L Carbon Dioxide 28 BUN 39 H Creatinine 5.87 H Glucose 175 H Calcium 8.7 - ABG Interpretation ABG results: ABG ABG pH 7.45 pH Units (7.32-7.45) 03/17/19 09:38 ABG pCO2 44 mmHg (35-45) 03/17/19 09:38 ABG pO2 58 mmHg (85-104) L 03/17/19 09:38 ABG O2 Saturation 91 % (95-98) L 03/17/19 09:38 PT/INR, D-dimer PT 13.1 Seconds (9.4-12.1) H 03/13/19 11:41 Consult Discharge Plan - Plan [facility]errals: [facility] [Primary Care Provider] - (1) COPD (chronic obstructive pulmonary disease) Qualifiers: COPD type: unspecified COPD Qualified Code(s): J44.9 - Chronic obstructive pulmonary disease, unspecified (4) Atrial fibrillation Qualifiers: Atrial fibrillation type: unspecified Qualified Code(s): I48.91 - Unspecified atrial fibrillation
--- NOTE | 2019-03-18 15:33 | Nephrology Progress Note ---
Date of Encounter: 03/18/19 Time of Encounter: 12:00 - Assessment and Plan (1) ESRD (end stage renal disease) on dialysis Current Visit: No Status: Acute s/p HD with UF yesterday, next planned for wednesday Continue strict I/O Continue avoid nephrotoxins, renal dose all medications. Continue daily weights. (2) Acute blood loss anemia Current Visit: Yes Status: Acute Hgb now improved at 9.8 s/p transfusion PRBCs ordered by primary team. Transfusion parameters per primary team (3) Edema Current Visit: No Status: Acute Mostly resolved except on RLE from recent bleed Qualifiers: Edema type: generalized Qualified Code(s): R60.1 - Generalized edema (4) Right groin pain Current Visit: Yes Status: Acute Stable Still painful to touch. Imaging reviewed, no further recommendations per vascular. Subjective Principal diagnosis: anemia, ESRD Interval history: Pt seen and examined with at bedside, sitting up in chair with no new complaints. eager to go home soon. s/p HD yesterday Objective - Vital Signs Vital signs: Vital Signs Temp Pulse Resp BP Pulse Ox 03/18/19 14:21 97.7 F 100 16 149/70 96 03/18/19 10:20 97.9 F 78 17 134/63 93 03/18/19 09:40 16 94 03/18/19 08:23 94 03/18/19 06:43 98.0 F 77 16 152/71 94 03/18/19 04:10 98.1 F 107 17 148/65 99 03/17/19 23:10 97.6 F 118 16 150/62 98 03/17/19 22:33 16 93 03/17/19 19:01 98.3 F 100 17 157/87 96 03/17/19 16:30 19 99 03/17/19 16:01 16 96 Intake and Output 03/17/19 03/18/19 03/18/19 23:59 07:59 15:59 Intake Total 120 / 720 600 / 720 Balance 120 / 720 600 / 720 Intake: Oral 120 / 720 600 / 720 Other: Meal Lunch Percent of Meal Consumed 100% Weight 74 kg - General Appearance General appearance: Present: chronically ill, frail EENT: Present: ATNC, mucous membranes moist Neck: Present: no JVD, supple Respiratory: Present: clear Cardiology: Present: edema (trace RLE edema), normal S1, normal S2 Dialysis Vascular Access: Arteriovenous Fistula thrill: Yes bruit: Yes Gastrointestinal: Present: no tenderness, no guarding Integumentary: Present: warm and dry Neurologic: Present: no focal deficit Musculoskeletal: Present: no deformities Psychiatric: Present: mood/affect appropriate, cooperative - Lab 03/19/19 21:10 03/19/19 08:32 Most recent lab results 03/18/19 04:54 Calcium 8.7 Consult Discharge Plan - Plan [facility]errals: [facility] [Primary Care Provider] -
[2019-03-19] MEDS: Melatonin 3 MG TABLET PO PRN (02:52)
[2019-03-19] MEDS: Ipratropium/Albuterol Neb 3 ML IH SCH ×4 (04:27→22:12)
[2019-03-19] MEDS: MethylPREDNISolone 40 MG/ML VIAL IVP SCH ×2 (06:31→16:27)
[2019-03-19] MEDS: Calcium Acetate 667 MG CAPSULE PO SCH ×3 (07:20→16:26)
[2019-03-19] MEDS: Colchicine 0.6 MG TABLET PO SCH (07:20)
[2019-03-19] MEDS: Renal Vitamin 1 CAP CAPSULE PO SCH (07:20)
[2019-03-19] MEDS: *HR* Digoxin 0.125 MG TABLET PO SCH (07:20)
[2019-03-19] MEDS: Furosemide 40 MG TABLET PO SCH ×2 (07:20→16:27)
[2019-03-19] MEDS ORDERED: *HR* Etomidate 20 MG/10 ML AMPUL IVP ONE (08:04)
[2019-03-19] MEDS ORDERED: *HR* Midazolam HCl 2 MG/2 ML VIAL IV ONE (08:04)
[2019-03-19] MEDS ORDERED: *HR* Amiodarone Premix 360 MG/200 ML BAG IVC ONE (08:06)
[2019-03-19] MEDS ORDERED: *HR* EPINEPHrine 1 MG/10 ML SYRINGE IVP ONE (08:06)
[2019-03-19] MEDS ORDERED: *HR* Amiodarone 150 MG/3 ML VIAL IVPB ONE (08:06)
[2019-03-19 09:27] LABS: Hematocrit 28.7 % (37.5-50.1); Hemoglobin 9.1 g/dL (12.9-16.9); Mean Corpuscular HGB Conc 31.7 g/dL (31.6-35.5); Mean Corpuscular Hemoglobin 32.4 pg (28.0-33.3); Mean Corpuscular Volume 102.1 fL (83.0-100.0); Mean Platelet Volume 10.3 fL (9.4-12.4); Platelet Count 252 K/mcL (140-400); Red Blood Count 2.81 M/mcL (4.19-5.50); Red Cell Distribution Width 17.7 % (11.5-14.5)
[2019-03-19 09:28] LABS: White Blood Count 11.1 K/mcL (4.3-11.1)
[2019-03-19] MEDS: Budesonide/Formoterol 160/4.5 1 PUFF INH IH SCH ×2 (10:12→19:53)
[2019-03-19 10:32] LABS: Calcium 8.7 mg/dL (8.6-10.3); Potassium 4.9 mEq/L (3.5-5.1)
--- NOTE | 2019-03-19 14:11 | Internal Med Progress Note ---
Hospitalist Progress Note - Encounter Date of Encounter: 03/19/19 Time of Encounter: 14:08 - Subjective Interval History: I have seen and evaluated the patient at bedside. patient reported feeling better today. denies chest pain or shortness of breath, but reported generalized weakness. - Exam Vitals: Temp Pulse Resp BP Pulse Ox 97.8 F 117 19 139/90 99 03/19/19 10:44 03/19/19 10:44 03/19/19 10:44 03/19/19 10:44 03/19/19 10:44 Exam: Vitals: Reviewed General: Alert and oriented x4. In no distress Cardiovascular: irregularly irregular, normal S1 & S2, no rubs, murmurs or gallops. Lungs: CTA b/l, no wheezes, rales or crackles. Abdomen: Soft, non-tender, no rigidity. NABS in all 4 quadrants. Extremities: right lower extr symmetrically bigger than the left. Neurological: No focal neurological abnormalities. Rest of the physical exam is non contributory - Assessment and Plan (1) COPD (chronic obstructive pulmonary disease) Current Visit: Yes Status: Acute Assessment and Plan: chest is clear to auscultation. Plan DC IV steroids. will start patient on oral prednisone taper. c/w incentive spirometry On bronchodilators Q4RT and symbicort (2) Acute blood loss anemia Current Visit: Yes Status: Acute Assessment and Plan: H&H remains stable. patient s/p 3 units of PRBCs transfused. Plan Patient is on ferrous sulfate. will monitor H&H and transfuse per protocol (3) ESRD (end stage renal disease) on dialysis Current Visit: No Status: Acute Assessment and Plan: Renal replacement therapy M,W,F. c/w furosemide 40mg/PO daily. avoid nephrotoxic medications (4) Atrial fibrillation Current Visit: No Status: Chronic Assessment and Plan: HR sub-optimally controlled. carvedilol increased to 25mg/PO BID. patient is off oral anticoagulant due to recent discussed with Vascular surgery about anticoagulation. stated it was ok to resume patient's dose of eliquis. (5) Chronic systolic (congestive) heart failure Current Visit: No Status: Chronic Assessment and Plan: HFrEF last estimated e.f 30-35%. patient euvolemic. in no distress Plan: c/w fluids restriction to 1.5 litters a day, daily weight and strict intake and output. and furosemide 40mg/PO daily (6) Essential hypertension Current Visit: No Status: Chronic Assessment and Plan: BP is well controlled. Plan: c/w carvedilol and furosemide. will adjust medications as needed. (7) Laceration of right femoral artery Current Visit: No Status: Chronic Assessment and Plan: s/p Right groin exploration with direct repair of right superficial femoral arteryon 03/07/19 (8) CAD (coronary artery disease) Current Visit: Yes Status: Chronic Assessment and Plan: s/p [facility] on 11/1618 Impressions: There is severe three vessel coronary artery disease. S/P CABG 2 of 2 patent bypass grafts. Plan: discussed with Vascular surgery about anticoagulation. stated it was ok to resume patient's dose of aspirin 81mg/PO daily. patient on a bb and statin. DVT Prophylaxis: off chemical dvt prophylaxis due to recent hematoma. hold intermittent pneumatic compression pending venous duplex of the lower extr. - Summary of Assessment and Plan Summary of Assessment and Plan: patient to remain in the hospital due to A.fib with RvR. potential discharge in the following 24-48 hours. - Time Spent with Patient Total time spent is greater than 50% in coordination of care (as documented) at patient's floor/unit and/or counseling patient: Greater than 35 minutes (45) Plan of Care Discussed with: patient (and the nurse.) Internal Medicine: Result - Labs CBC & Chem 7: 03/19/19 08:32 03/19/19 08:32 Labs: Short CBC 03/19/19 Range/Units 08:32 WBC 11.1 D (4.3-11.1) K/mcL Hgb 9.1 L (12.9-16.9) g/dL Hct 28.7 L (37.5-50.1) % Plt Count 252 (140-400) K/mcL BMP 03/19/19 08:32 Sodium 126 L Potassium 4.9 Chloride 91 L Carbon Dioxide 23 BUN 62 H Creatinine 8.23 H Glucose 128 H Calcium 8.7 - ABG Interpretation ABG results: ABG ABG pH 7.45 pH Units (7.32-7.45) 03/17/19 09:38 ABG pCO2 44 mmHg (35-45) 03/17/19 09:38 ABG pO2 58 mmHg (85-104) L 03/17/19 09:38 ABG O2 Saturation 91 % (95-98) L 03/17/19 09:38 PT/INR, D-dimer PT 13.1 Seconds (9.4-12.1) H 03/13/19 11:41 Consult Discharge Plan - Plan Referrals: [facility] [Primary Care Provider] - (1) COPD (chronic obstructive pulmonary disease) Qualifiers: COPD type: unspecified COPD Qualified Code(s): J44.9 - Chronic obstructive pulmonary disease, unspecified (4) Atrial fibrillation Qualifiers: Atrial fibrillation type: unspecified Qualified Code(s): I48.91 - Unspecified atrial fibrillation (8) CAD (coronary artery disease) Qualifiers: Coronary Disease-Associated Artery/Lesion type: unspecified vessel or lesion type [place] vs. transplanted heart: unspecified whether [place] or transplanted heart Associated angina: angina presence unspecified Qualified Code(s): I25.10 - Atherosclerotic heart disease of [place] coronary artery without angina pectoris
[2019-03-19] MEDS ORDERED: Apixaban 5 MG TABLET PO SCH (15:00)
[2019-03-19] MEDS ORDERED: Levalbuterol Neb 0.63 MG/3 ML IH ONE (20:05)
[2019-03-19 21:41] LABS: Basophils % 0.1 %; Eosinophils % 0.1 %; Hematocrit 30.6 % (37.5-50.1); Hemoglobin 9.3 g/dL (12.9-16.9); Immature Granulocytes % 0.9 % (0-4); Lymphocytes % 14.3 %; Mean Corpuscular HGB Conc 30.4 g/dL (31.6-35.5); Mean Corpuscular Hemoglobin 32.6 pg (28.0-33.3); Mean Corpuscular Volume 107.4 fL (83.0-100.0); Mean Platelet Volume 10.9 fL (9.4-12.4); Monocytes # 0.7 K/mcL (0.0-1.3); Monocytes % 4.8 %; Neutrophils # 10.9 K/mcL (1.6-8.9); Platelet Count 179 K/mcL (140-400); Red Blood Count 2.85 M/mcL (4.19-5.50); Red Cell Distribution Width 17.2 % (11.5-14.5); Segmented Neutrophils % 79.8 %; White Blood Count 13.7 K/mcL (4.3-11.1)
--- NOTE | 2019-03-19 21:52 | Nephrology Progress Note ---
Date of Encounter: 03/19/19 Time of Encounter: 12:00 - Assessment and Plan (1) Acute blood loss anemia Current Visit: Yes Status: Acute Hgb noted at 9.1 from 9.8, will monitor closely Transfusion parameters per primary team (2) ESRD (end stage renal disease) on dialysis Current Visit: No Status: Acute s/p HD with UF wednesday, next planned for wednesday Continue strict I/O Continue avoid nephrotoxins, renal dose all medications. Continue daily weights. (3) Edema Current Visit: No Status: Acute Mostly resolved except on RLE from recent bleed Qualifiers: Edema type: generalized Qualified Code(s): R60.1 - Generalized edema (4) Right groin pain Current Visit: Yes Status: Acute Stable Still painful to touch. Imaging reviewed, no further recommendations per vascular. (5) Hyponatremia Current Visit: No Status: Acute Sodium noted at 126, should improve with HD tomorrow Subjective Principal diagnosis: anemia, ESRD Interval history: Pt seen and examined with at bedside with no new complaints. Still eager to go home soon. Objective - Vital Signs Vital signs: Vital Signs Temp Pulse Resp BP Pulse Ox 03/19/19 20:30 16 99 03/19/19 19:54 16 93 03/19/19 19:43 120 138/103 91 03/19/19 18:35 97.9 F 122 18 125/80 98 03/19/19 15:57 20 03/19/19 14:58 97.7 F 84 18 113/74 97 03/19/19 10:44 97.8 F 117 19 139/90 99 03/19/19 10:12 16 99 03/19/19 06:33 97.6 F 120 18 140/87 96 03/19/19 04:30 18 97 03/19/19 03:57 97.9 F 118 15 135/77 97 03/18/19 23:13 99.1 F 129 16 133/82 97 03/18/19 21:58 16 95 Intake and Output 03/19/19 03/19/19 03/19/19 07:59 15:59 23:59 Intake Total 120 / 1320 840 / 1320 360 / 1320 Balance 120 / 1320 840 / 1320 360 / 1320 Intake: Oral 120 / 1320 840 / 1320 360 / 1320 Other: Meal Lunch Dinner Percent of Meal Consumed % 35% Weight 73.6 kg Patient Weight 03/19/19 23:59 Weight 73.6 kg - General Appearance General appearance: Present: chronically ill, frail EENT: Present: ATNC, mucous membranes moist Neck: Present: no JVD, supple Respiratory: Present: clear Cardiology: Present: edema (trace RLE edema), normal S1, normal S2 Dialysis Vascular Access: Arteriovenous Fistula thrill: Yes bruit: Yes Gastrointestinal: Present: no tenderness, no guarding Integumentary: Present: warm and dry Neurologic: Present: no focal deficit Musculoskeletal: Present: no deformities Psychiatric: Present: mood/affect appropriate, cooperative - Lab 03/19/19 21:10 03/19/19 08:32 Most recent lab results 03/19/19 08:32 Calcium 8.7 Consult Discharge Plan - Plan Referrals: [facility] [Primary Care Provider] -
[2019-03-19] MEDS ORDERED: 0.9 % Sodium Chloride 1,000 ML ONE (21:53)
[2019-03-19] MEDS ORDERED: 0.9 % Sodium Chloride 1,000 ML IVC ONE (22:00)
[2019-03-19 22:04] LABS: ABG Base Excess -8 mEq/L (-2 to 3); ABG HCO3 18 mEq/L (21-27); ABG Oxygen Saturation 100 % (95-98); ABG PCO2 39 mmHg (35-45); ABG PH 7.28 pH Units (7.32-7.45); ABG PO2 326 mmHg (85-104); ABG TCO2 20 mEq/L (20-26); Blood Gas Modality PRVC; Blood Gas PEEP 5 cm H2O; Blood Gas VT 500 cc
[2019-03-19] MEDS ORDERED: 0.9 % Sodium Chloride 250 ML IVC SCH (22:05)
[2019-03-19] MEDS ORDERED: 0.9 % Sodium Chloride 250 ML IVC PRN (22:05)
[2019-03-19] MEDS ORDERED: Ondansetron ODT 4 MG TAB.RAPDIS SL PRN (22:05)
[2019-03-19] MEDS ORDERED: 0.9 % Sodium Chloride 1,000 ML PRIME SCH (22:05)
[2019-03-19] MEDS ORDERED: Melatonin 3 MG TABLET PO PRN (22:05)
[2019-03-19] MEDS ORDERED: Naloxone 0.4 MG/ML INJ IVP PRN (22:05)
[2019-03-19] MEDS ORDERED: Isovue-370 500 ML BOTTLE IVP ONE ×2 (22:14→22:21)
[2019-03-19 22:52] LABS: Albumin 2.9 g/dL (3.5-5.7); Albumin/Globulin Ratio 1.1 (1.1-2.2); Bilirubin,Total 0.5 mg/dL (0.3-1.0); Calcium 8.5 mg/dL (8.6-10.3); Globulin 2.7 g/dL (2.4-3.5); Magnesium 2.5 mg/dL (1.6-2.6); Phosphorous 8.3 mg/dL (2.7-4.5); Potassium 5.5 mEq/L (3.5-5.1); Total Protein 5.6 g/dL (6.4-8.9)
[2019-03-19] MEDS ORDERED: *HR* Midazolam HCl 2 MG/2 ML VIAL IVP ONE (22:55)
[2019-03-19] MEDS ORDERED: *HR* Midazolam HCl 2 MG/2 ML VIAL ONE (22:55)
[2019-03-19] MEDS: Dexmedetomidine HCl 400 MCG/100 ML MLS IVC SCH (23:36)
[2019-03-19] MEDS ORDERED: Sodium Bicarbonate 150 MEQ in D5% in Water 1,000 ML IVC SCH (23:45)
[2019-03-19] MEDS ORDERED: EPINEPHrine 1 MG in D5% in Water 250 ML IVC SCH (23:45)
[2019-03-20] MEDS ORDERED: Amiodarone Premix 360 MG/200 ML BAG IVC ONE
--- NOTE | 2019-03-20 00:15 | Cardiology Consult Note ---
Date of Encounter: 03/19/19 Time of Encounter: 23:50 Assessment and Plan (1) Cardiac arrest Current Visit: Yes Status: Acute In conclusion, the patient is a 73-year-old gentleman with somewhat complex medical history. He has a history of CAD with previous CABG and previous stenting. He has a history of ischemiccardio myopathy and is status post ICD i nsertion. He has several comorbidities including end-stage renal failure for which he is on hemodialysis. The patient makes minimal urine per , only "dribbling". He does not make meaningful urine at home. The patient is status post recent cardiac catheterization showing findings as per history of present illness without culprit lesion and without revascularization required. He has had a complicated course following his procedure with a right femoral pseudoaneurysm and hematoma with resultant anemia and brief cessation of anticoagulation The patient has developed cardiac arrest this evening with ventricular fibrillation requiring defibrillation twice. He presently is on a single va sopressor with epinephrine drip and is on amiodarone drip. The patient was assessed by the hospitalist initially who noticed what appeared to be ST elevation on the monitor but this was not captured on EKG. The patient underwent a CT injury of the chest which was negative for pulmonary embolism. I assessed the patient in the CT scanner and also in the ICU and I spoke with the patient's family on 2 occasions with updates. The hospitalist service has requested emergent coronary angiography given the above. Given the patient's findings as above, coronary angiography is not unreasonable. I have explained to the patient's family that recent cardiac catheterization findings were very reassuring. The events of this evening could be due to his ischemic cardiomyopathy, perhaps exacerbated by acute illness and metabolic changes. I am concerned about his apparent ST elevation on the monitor and he is much more bradycardic now than usual. I have explained to the patient's family the cardiac catheterization does entail risk, affect they are well aware of. We have discussed this once again. The patient's explains to me that her wish to be aggressive with his care. After our discussion of risks and benefits, she desires to go ahead with an aggressive approach and we will plan diagnostic coronary angiography at this time. We will continue aggressive medical management and modification of the patient's cardiovascular risk factors. We will use a left femoral approach given recent right femoral complication and dialysis makes upper activity access less attractive. Discussion w patient/family: The assessment and plan as outlined above was discussed with the patient and/or family members who expressed understanding and agreement. All questions were answered. Thank you for involving us in the care of your patient. Please call with any questions. History of Present Illness Consult date: 03/19/19 Consult reason: Cardiac arrest History of present illness: Mr. Dumont is a 73 year old male with history of known severe coronary artery disease. Patient is status post distant CABG. He also has a history of 2 stents placed. His previous respiration procedures were performed at an outside hospital. The patient is status post recent cardiac catheterization. This was performed on 2018 here. The patient had patent vein grafts, it appears, to the LAD and the right coronary artery PDA. They shared a common proximal aortic anastomosis. The patient also had a patent circumflex with diffuse mild borderline moderate CAD. Medical management was favored. The patient has had a compensated course following cardiac catheterization. He developed a right pseudoaneurysm and required repair. He has been anemic and his anticoagulation was held for a few days that has been restarted. He is presently on Eliquis 2.5 mg by mouth twice a day and also aspirin 81 mg per day. The Eliquis is being utilized for atrial fibrillation. The patient has a history of ischemic cardio myopathy and is status post ICD insertion. The patient's left ventricular ejection fraction by recent echocardiogram was about 30% the patient has been in the hospital and I was contacted this evening by the hospitalist after patient experienced cardiac arrest on the floor. This was a ventricular fibrillation arrest and patient was shocked twice. He received resuscitation efforts for about 20 minutes before ROSC was achieved. For hospitalist, the patient did have more prominent ST elevation on the monitor but an EKG was not captured prior to the patient being sent for CT angiogram of the chest. I assessed the patient in the CT scanner with the hospitalist. Presently, the patient is more bradycardic than previously seen and is presently ventricular paced. EKG performed in the ICU shows ventricular pacing with wide complex QRS complex. He is presently on a single vasopressor with epinephrine drip and is on amiodarone drip. He is not responsive at present but has had purposeful movements after his event trying to pull out his NG tube and moving. Potassium is mildly elevated following his arrest at 5.5 and he has mild acidosis. Of note, CT scan of the chest shows no evidence of pulmonary embolism. It does show bilateral pleural effusions. Right femoral pseudoaneurysm with hematoma is seen as well on pelvic CT scan. Past Med Surg Social Fam HX - Past Medical History Medical history: atrial fibrillation, cardiomyopathy, CHF, coronary artery disease, hypertension, renal disease Additional medical history: gout Psychiatric history: no psych history - Past Surgical History Surgical History: coronary bypass (CABG), herniorrhaphy, pacemaker/AICD Additional surgical history: bowel resection - Social History Smoking Status: Never smoker Smokeless Tobacco Status: No Alcohol use: none Drug use: none - Family History Father Adopted: No Living Status: Hx Family Cardiac Disorders: Yes (SD) Hx Family Respiratory Disorders: No Hx Family Cancer: No Hx Family GI Disorders: No Hx Family Endocrine Disorder: No Hx Family Neuromuscular Disorders: No Hx Family Neurologic Disorders: No Hx Family HEENT Disorders: No Hx Family Autoimmune Disorders: No Grandfather Family Member Ethnicity: Non- Living Status: Hx Family Cardiac Disorders: Yes Hx Family Respiratory Disorders: No Hx Family Cancer: Yes (mothers side) Hx Family Endocrine Disorder: No Hx Family Neuromuscular Disorders: No Hx Family Neurologic Disorders: No Hx Family HEENT Disorders: No Hx Family Autoimmune Disorders: No Medications and Allergies Carvedilol [Coreg] 12.5 mg PO BID 05/27/18 [History] Colchicine [Colcrys] 0.6 mg PO DAILY 05/27/18 [History] Docusate [Colace] 200 mg PO DAILY 05/27/18 [History] Albuterol Sulfate [Proair Hfa] 2 puff IH Q6H PRN 07/28/18 [History] Budesonide/Formoterol 160/4.5 [Symbicort 160/4.5] 1 puff IH BIDR 07/28/18 [Hi story] GlipiZIDE [Glucotrol] 2.5 mg PO DAILY 07/28/18 [History] Atorvastatin [Lipitor] 20 mg PO HS #30 tablet 08/12/18 [Rx] Allopurinol [Zyloprim 100 MG] 100 mg PO DAILY 02/23/19 [History] Apixaban [Eliquis] 2.5 mg PO BID 02/23/19 [History] Folic Acid/Vit B Complex and C [Dialyvite 800 Chewable Wafer] 800 mcg PO DAILY 02/23/19 [History] Furosemide [Lasix] 40 mg PO AD 02/23/19 [History] Ipratropium/Albuterol Neb [Duoneb] 3 ml IH Q6HR PRN 02/23/19 [History] Melatonin 5 mg PO HS PRN 02/23/19 [History] Ondansetron ODT [Zofran ODT] 4 mg PO Q6-8H PRN 02/23/19 [History] Polyethylene Glycol 3350 [MiraLAX] 17 gm PO DAILY PRN 02/23/19 [History] Aspirin Enteric Coated [Aspirin EC] 81 mg PO DAILY tablet. 03/01/19 [Rx] Digoxin [Lanoxin] 0.0625 mg PO Q48H tablet 03/01/19 [Rx] Ferric Citrate [Auryxia] 420 mg PO TIDWM 03/08/19 [History] Calcium Acetate [Phos-LO] 1,334 mg PO TIDWM capsule 03/09/19 [Rx] Calcium Acetate [Phos-LO] 667 mg PO DAILY capsule 03/09/19 [Rx] Allergy/AdvReac Type Severity Reaction Status Date / Time meperidine [From Demerol] Allergy Hives Verified 03/13/19 19:49 ROS unobtainable: due to endotracheal tube, due to mental status All Systems Review: The remainder of the systems were reviewed and are negative Physical Examination Vital Signs, Last 4 Hours Resp Pulse Ox 03/19/19 21:49 23 100 03/19/19 20:30 16 99 General: No Apparent Distress HEENT: Atraumatic, Normocephaly, Mucus Membranes Moist Neck: No JVD, Normal carotid pulses Cardiac: Reg Rate and Rhythm, Normal S1 and S2, No Murmur Lungs: Normal Breath Sounds, No Wheeze, Rales, Rhonchi Neuro: No focal deficits noted Abdomen: Soft, Non-Tender Skin: No rashes noted on visualized skin Musculoskeletal: No Chest Wall Tenderness Extremities: No Clubbing, No Cyanosis, No Edema, Normal Pulses Results 03/19/19 21:10 03/19/19 21:10 Lab Results 03/19/19 03/19/19 03/19/19 08:32 08:32 21:10 WBC 11.1 D 13.7 H Hgb 9.1 L 9.3 L Hct 28.7 L 30.6 L Plt Count 252 179 Sodium 126 L Potassium 4.9 Chloride 91 L Carbon Dioxide 23 BUN 62 H Creatinine 8.23 H Glucose 128 H Calcium 8.7 Magnesium Total Bilirubin AST ALT Alkaline Phosphatase 03/19/19 21:10 WBC Hgb Hct Plt Count Sodium 125 L Potassium 5.5 H Chloride 89 L Carbon Dioxide 16 L BUN 67 H Creatinine 8.60 H Glucose 209 H Calcium 8.5 L Magnesium 2.5 Total Bilirubin 0.5 AST 64 H ALT 21 Alkaline Phosphatase 48 Consult Discharge Plan - Plan Referrals: [facility] [Primary Care Provider] - Cardiac Rehab - Cardiac Rehab Cardiac Rehab: Phase I consult completed. Patient was educated on why Cardiac Rehabilitation is beneficial to his/her health. Participating in a cardiac rehabilitation can improve the following: strengthen your heart, improve ejection fraction, weight reduction, decrease cholesterol levels, lower blood pressure, lower blood sugar, improve stamina, and enhance self-image. If he/she has any questions, they were instructed to call [facility] at [phone].
[2019-03-20] MEDS ORDERED: *HR* Heparin 10,000 UNIT/10 ML VIAL ONE (00:24)
[2019-03-20] MEDS ORDERED: ISOVUE-370 200 ML INFUS..BTL ONE ×3 (00:24→00:31)
[2019-03-20] MEDS ORDERED: 0.9 % Sodium Chloride 1,000 ML ONE (00:24)
[2019-03-20] MEDS ORDERED: Heparin 1,000 UNITS/500 mL 500 ML ONE ×3 (00:24→14:53)
[2019-03-20] MEDS ORDERED: Nitroglycerin 1,000 MCG/10 ML VIAL IV ONE (00:24)
--- NOTE | 2019-03-20 02:09 | Invasive Diagnostic Lab Proc ---
Name: Clement Dumont Date of Study: 03/20/2019 Date: 1945 Ht: 66.9in Medical Record#: [id number] Age: 73 Wt: 160.94lb Gender: Male BSA: 1.84 Order #: [id number] BMI: 25.26 Physicians Procedure Physician: Alonzo Domínguez MD Referring MD: Referring MD: Staff Name Position Time In [facility], [facility] RT (R) Monitor 01:15 AM Melisa Brielle RT (R) Scrub 01:16 AM Jonathan Reynaga RN Director Of Compliance 01:16 AM Procedures Performed Procedure CORONARY ARTERY ANGIO S&I Pre-Procedure Checklist Informed consent is complete signed and on chart. ID band is on and ID verified with patient. Pt not NPO for procedure and MD aware. Blood Pressure: 98/60 ECG is on chart. Rhythm: Paced Plan of Care Patient will tolerate the procedure without complications. Adequate level of comfort will be maintained. Hemodynamics will remain stable Patient will recover from procedure without complications. Respiratory function will be maintained. Cardiac rhythm will remain stable. Patient temperature will be maintained. Patient and/or family have verbalized understanding of the procedure. Patient Education Chief Complaint/Reason for Test: Cardiac Cath Developmental Category: Geriatric (65+ years) Developmentally Appropriate for Age: Yes Learning Barriers: None Education Needs: Procedure Education Method: Verbal Information Taught: Cardiac Cath Educational Evaluation: Able to repeat information Intravenous Access Time IV Size Location DC'd Fluid/Drip Rate Units RN Started with 20g 1 1/4" Lt Arm Triple Lumen 0.9NaCl Jonathan Reynaga RN Allergies meperidine Procedural Medications Time Medication Dose Units Method Given By 01:21 AM Lidocaine 2% 19 ml Subcutaneous Alonzo Domínguez MD ASA Classification: Emergent Procedure: ASA score is assumed Michael Score Preprocedure Postprocedure Activity 0- Unable to move extremities or lift head Activity 0- Unable to move extremities or lift head Circulation 0- SBP +/= 50 points of pre-anesthetic level Circulation 0- SBP +/= 50 points of pre-anesthetic level Consciousness 0- Non-responsive Consciousness 0- Non-responsive O2 Saturation 0- O2 saturation 90% even with O2 supplement O2 Saturation 0- O2 saturation 90% even with O2 supplement Respiratory 0- Apneic requires ventilator or assisted respiration Respiratory 0- Apneic requires ventilator or assisted respiration Total Score Total Score Contrast Agent: Isovue Diagnostic Contrast: 60 ml Total Contrast: 60 ml Fluoro Dose: 23 mGy Procedure Log Time Note Enter By 01:05 AM Munira Quintana RT (R) Position: Monitor Time in: 01:05 oparker 01:05 AM Melisa Brielle RT (R) Position: Scrub Time in: 01:05 oparker 01:05 AM Jonathan Reynaga RN Position: Director Of Compliance Time in: 01:05 oparker 01:05 AM Patient charges- Angio tray pack, Navilyst 3mm J, Pulse Oximetry and ACIST tubing and transducer oparker 01:05 AM Physician arrived 01:05 oparker 01:05 AM 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 01:18 AM NIBP STAT measurement started. 01:18 AM Case Delayed No oparker 01:20 AM Time out was performed according to hospital policy. Conscious sedation and anesthesia was achieved (see medication log with in this report above) oparker 01:21 AM Vitals capture stopped. 01:21 AM Pressure channel 2 zeroed. 01:21 AM Procedure start 01:21 tsites 01:21 AM Time: 01:21 19 ml Lidocaine 2% to left groin Subcutaneous Given by Alonzo Domínguez MD tsites 01:23 AM Micro-Introducer Kit utilized for sheath placement tsites 01:24 AM Access obtained by percutaneous puncture. 4Fr 10cm Micro sheath placed in left Femoral artery. [id number] tsites 01:24 AM Sheath exchanged for a 6 Fr 11 cm [place] sheath [id number] tsites 01:25 AM 6Fr FL 4 catheter inserted over the wire [facility] tsites 01:25 AM 0.035 145cm Navilyst 3mmJ wire [id number] tsites 01:26 AM Recorded Pressure: Ao, HR=51, Condition=Condition 1 (Aorta) Ao 98/62/76 01:26 AM LCA angiography performed in multiple views. tsites 01:28 AM 5Fr FR 4 catheter inserted over the wire DNC tsites 01:28 AM RCA angiography performed in multiple views. tsites 01:29 AM Recorded Pressure: Ao, HR=52, Condition=Condition 1 (Aorta) Ao 85/67/77 01:31 AM Bolus angiogram of left Femoral complete: hand injection for a total of 5 mls tsites 01:32 AM Recorded Pressure: Ao, HR=50, Condition=Condition 1 (Aorta) Ao 100/57/71 01:38 AM Coronary Dominance: right tsites 01:38 AM Procedure completed at 01:38 03/20/2019 tsites 01:38 AM Did you address RANDA flow and Dominance? YesCoronary Dominance: right tsites 01:39 AM Sign out completed: Radiation Dose 171 mGy, 23 Gy/cm2 Fluoro Time: 1.8 Isovue 370 - 200ml contrast 60 ml given by Alonzo Domínguez MD. Complications: None. 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 Sedation minutes 0. Cardiac Rehab Consult needed: No. Confirmed administered medications: Yes tsites 01:39 AM Isovue 370 - 200ml,1 Bottle(s) used. tsites 01:40 AM Arterial sheath pulled, Angio-seal closure device used and was Successful [id number] S/N. tsites 01:40 AM Estimated Blood Loss: minimal tsites 01:40 AM Post ECG Paced tsites 01:40 AM Post Blood Pressure 100/57 tsites 01:40 AM 01:40 Post Pulses Bilateral DP & PT None tsites 01:40 AM Information taught Cardiac Cath and Angioseal tsites 01:40 AM Education needs Plan of Care, Procedure, and Responsibilities of Patient in Care tsites 01:40 AM Learning barriers :None tsites 01:40 AM Education Methods Verbal tsites 01:41 AM Education evaluation Able to repeat information tsites 01:41 AM Site status No bleeding/ No Hematoma - Lt Groin as reported by Brielle Vincent RT (R) at 01:41 tsites 01:41 AM Opsite applied tsites 01:41 AM Delay to floor No tsites 01:41 AM Patient out of room: 01:41 tsites 01:41 AM Report given to inez DIAL Pt taken to ICU Room #10. 01:41 tsites 01:42 AM Lesion found in Proximal LAD. Pre Stenosis: 99 Pre RANDA Flow: tsites 01:42 AM Lesion found in Proximal Circumflex. Pre Stenosis: 40 Pre RANDA Flow: tsites 01:42 AM Lesion found in Proximal RCA. Pre Stenosis: 80 Pre RANDA Flow: tsites 01:43 AM Lesion found in Mid RCA. Pre Stenosis: 100 Pre RANDA Flow: tsites Complications Complication None Hemodynamics Pressures Site Systolic/A Wave Diastolic/V Wave Mean AO 98 62 76 AO 85 67 77 AO 100 57 71 Post Procedure Information Blood Pressure: 100/57 mmHg Rhythm: Paced Post procedural instructions were given Closure Device Time Device Success/Fail 03/20/2019 1:41:00 AM Angio-Seal VIP Successful Site Checks Time Location Status Staff Sheath In? Note 01:41 AM Lt Groin No bleeding/ No Hematoma Brielle Vincent RT (R) Pulses Time Site Pre-Procedure Post-Procedure Note 1:40:00 AM Bilateral DP & PT None Updated by Munira Quintana RT (R) on 03/20/2019 2:00:22 AM Munira Quintana RT electronically signed on 03/20/2019 2:01:01 AM with status of Final
[2019-03-20] MEDS ORDERED: EPINEPHrine 5 MG in D5% in Water 250 ML IVC SCH (02:15)
[2019-03-20] MEDS ORDERED: Sodium Bicarbonate 50 MEQ/50 ML VIAL ONE (02:20)
[2019-03-20 02:25] LABS: ABG Base Excess -2 mEq/L (-2 to 3); ABG HCO3 24 mEq/L (21-27); ABG Oxygen Saturation 100 % (95-98); ABG PCO2 45 mmHg (35-45); ABG PH 7.33 pH Units (7.32-7.45); ABG PO2 269 mmHg (85-104); ABG TCO2 25 mEq/L (20-26); Blood Gas Modality PRVC; Blood Gas PEEP 5 cm H2O; Blood Gas VT 500 cc
[2019-03-20 03:03] LABS: Potassium 5.9 mEq/L (3.5-5.1)
[2019-03-20] MEDS ORDERED: Calcium Gluconate 1gm/50mL 1 GM/50 ML BAG IVPB ONE (03:30)
[2019-03-20] MEDS: Ipratropium/Albuterol Neb 3 ML IH SCH ×3 (03:56→16:08)
[2019-03-20 04:37] LABS: Hematocrit 24.7 % (37.5-50.1); Hemoglobin 7.8 g/dL (12.9-16.9); Mean Corpuscular HGB Conc 31.6 g/dL (31.6-35.5); Mean Corpuscular Hemoglobin 32.8 pg (28.0-33.3); Mean Platelet Volume 11.1 fL (9.4-12.4); Platelet Count 147 K/mcL (140-400); Red Blood Count 2.38 M/mcL (4.19-5.50); Red Cell Distribution Width 17.4 % (11.5-14.5); White Blood Count 10.5 K/mcL (4.3-11.1)
[2019-03-20 04:39] LABS: Mean Corpuscular Volume 103.8 fL (83.0-100.0)
[2019-03-20 04:41] LABS: VBG HCO3 25 mEq/L (21-27); VBG PCO2 57 mmHg (41-51); VBG PH 7.24 pH Units (7.32-7.42); VBG PO2 69 mmHg (25-50)
[2019-03-20] MEDS ORDERED: Amiodarone Premix 360 MG/200 ML BAG IVC SCH (05:00)
[2019-03-20 05:08] LABS: Troponin I 0.13 ng/mL (< 0.04)
[2019-03-20 05:20] LABS: ABG Base Excess -1 mEq/L (-2 to 3); ABG HCO3 25 mEq/L (21-27); ABG Oxygen Saturation 99 % (95-98); ABG PCO2 46 mmHg (35-45); ABG PH 7.34 pH Units (7.32-7.45); ABG PO2 124 mmHg (85-104); ABG TCO2 27 mEq/L (20-26); Blood Gas Modality ASSIST CONTROL; Blood Gas PEEP 5 cm H2O; Blood Gas VT 500 cc
[2019-03-20] MEDS: MethylPREDNISolone 40 MG/ML VIAL IVP SCH ×2 (05:52→16:42)
[2019-03-20] MEDS ORDERED: Dextrose Gel 15 GM/37.5 ML TUBE PO PRN ×2 (06:05)
[2019-03-20] MEDS ORDERED: *HR* Dextrose 50 % in Water (Syg) 50 ML SYRINGE IVP PRN (06:05)
[2019-03-20] MEDS ORDERED: D5% in Water 1,000 ML IVC PRN (06:05)
[2019-03-20] MEDS: Insulin LISPRO 300 UNITS/3 ML VIAL SQ SCH ×3 (06:15→16:42)
[2019-03-20 06:19] LABS: Calcium 8.3 mg/dL (8.6-10.3); Potassium 5.8 mEq/L (3.5-5.1)
--- NOTE | 2019-03-20 07:31 | Pulmonology Consult Note ---
<Matt Conley W - Last Filed: 03/20/19 09:53> Date of Encounter: 03/20/19 Medications and Allergies Carvedilol [Coreg] 12.5 mg PO BID 05/27/18 [History] Colchicine [Colcrys] 0.6 mg PO DAILY 05/27/18 [History] Docusate [Colace] 200 mg PO DAILY 05/27/18 [History] Albuterol Sulfate [Proair Hfa] 2 puff IH Q6H PRN 07/28/18 [History] Budesonide/Formoterol 160/4.5 [Symbicort 160/4.5] 1 puff IH BIDR 07/28/18 [History] GlipiZIDE [Glucotrol] 2.5 mg PO DAILY 07/28/18 [History] Atorvastatin [Lipitor] 20 mg PO HS #30 tablet 08/12/18 [Rx] Allopurinol [Zyloprim 100 MG] 100 mg PO DAILY 02/23/19 [History] Apixaban [Eliquis] 2.5 mg PO BID 02/23/19 [History] Folic Acid/Vit B Complex and C [Dialyvite 800 Chewable Wafer] 800 mcg PO DAILY 02/23/19 [History] Furosemide [Lasix] 40 mg PO AD 02/23/19 [History] Ipratropium/Albuterol Neb [Duoneb] 3 ml IH Q6HR PRN 02/23/19 [History] Melatonin 5 mg PO HS PRN 02/23/19 [History] Ondansetron ODT [Zofran ODT] 4 mg PO Q6-8H PRN 02/23/19 [History] Polyethylene Glycol 3350 [MiraLAX] 17 gm PO DAILY PRN 02/23/19 [History] Aspirin Enteric Coated [Aspirin EC] 81 mg PO DAILY tablet. 03/01/19 [Rx] Digoxin [Lanoxin] 0.0625 mg PO Q48H tablet 03/01/19 [Rx] Ferric Citrate [Auryxia] 420 mg PO TIDWM 03/08/19 [History] Calcium Acetate [Phos-LO] 1,334 mg PO TIDWM capsule 03/09/19 [Rx] Calcium Acetate [Phos-LO] 667 mg PO DAILY capsule 03/09/19 [Rx] Allergy/AdvReac Type Severity Reaction Status Date / Time meperidine [From Demerol] Allergy Hives Verified 03/13/19 19:49 All Systems: The remainder of the systems were reviewed and are negative Physical Examination Vital Signs: Vital Signs, Last 4 Hours Temp Pulse Resp BP Pulse Ox 03/20/19 09:26 14 101/62 100 03/20/19 09:00 50 15 89/48 100 03/20/19 08:00 96.4 F L 50 15 93/55 99 03/20/19 07:33 15 94/51 94 03/20/19 07:31 96.4 F L 03/20/19 07:00 50 16 94/51 99 03/20/19 06:45 19 96 03/20/19 06:00 96.2 F L 51 16 88/62 99 Ventilator Settings Ventilator Settings: Ventilator Settings, Last 8 Hours Ventilator Tidal Volume 500 Setting Ventilator Tidal Volume 500 Setting Ventilator Tidal Volume 500 Setting Ventilator Tidal Volume 500 Setting Ventilator Tidal Volume 500 Setting Ventilator Tidal Volume 500 Setting Ventilator Tidal Volume 500 Setting Ventilator Tidal Volume 500 Setting Ventilator Tidal Volume 500 Setting Ventilator Tidal Volume 500 Setting Ventilator Tidal Volume 500 Setting Ventilator Tidal Volume 500 Setting Ventilator Tidal Volume 500 Setting Ventilator Tidal Volume 500 Setting Ventilator Tidal Volume 500 Setting Ventilator Respiratory Rate 14 Setting Ventilator Respiratory Rate 14 Setting Ventilator Respiratory Rate 14 Setting Ventilator Respiratory Rate 14 Setting Ventilator Respiratory Rate 14 Setting Ventilator Respiratory Rate 14 Setting Ventilator Respiratory Rate 14 Setting Ventilator Respiratory Rate 14 Setting Ventilator Respiratory Rate 14 Setting Ventilator Respiratory Rate 14 Setting Ventilator Respiratory Rate 14 Setting Ventilator Respiratory Rate 14 Setting Ventilator Respiratory Rate 14 Setting Ventilator Respiratory Rate 14 Setting Ventilator Respiratory Rate 14 Setting Actual Respiratory Rate 14 Actual Respiratory Rate 15 Actual Respiratory Rate 15 Actual Respiratory Rate 16 Actual Respiratory Rate 16 Actual Respiratory Rate 17 Actual Respiratory Rate 16 Actual Respiratory Rate 16 Positive End Expiratory 5 Pressure Positive End Expiratory 5 Pressure Positive End Expiratory 5 Pressure Positive End Expiratory 5 Pressure Positive End Expiratory 5 Pressure Positive End Expiratory 5 Pressure Positive End Expiratory 5 Pressure Positive End Expiratory 5 Pressure Positive End Expiratory 5 Pressure Positive End Expiratory 5 Pressure Positive End Expiratory 5 Pressure Positive End Expiratory 5 Pressure Positive End Expiratory 5 Pressure Positive End Expiratory 5 Pressure Positive End Expiratory 5 Pressure Peak Inspiratory Airway 20 Pressure Peak Inspiratory Airway 6 Pressure Peak Inspiratory Airway 8 Pressure Peak Inspiratory Airway 7.9 Pressure Peak Inspiratory Airway 7 Pressure Peak Inspiratory Airway 6.7 Pressure Peak Inspiratory Airway 6.2 Pressure Peak Inspiratory Airway 7.0 Pressure Results - Laboratory Findings CBC and BMP: 03/20/19 04:20 03/20/19 04:20 ABG ABG pH 7.34 pH Units (7.32-7.45) 03/20/19 05:17 ABG pCO2 46 mmHg (35-45) H 03/20/19 05:17 ABG pO2 124 mmHg (85-104) H D 03/20/19 05:17 ABG O2 Saturation 99 % (95-98) H 03/20/19 05:17 PT/INR, D-dimer PT 13.1 Seconds (9.4-12.1) H 03/13/19 11:41 Abnormal lab findings: Abnormal lab results WBC 13.7 K/mcL (4.3-11.1) H 03/19/19 21:10 RBC 2.38 M/mcL (4.19-5.50) L 03/20/19 04:20 Hgb 7.8 g/dL (12.9-16.9) L D 03/20/19 04:20 Hct 24.7 % (37.5-50.1) L 03/20/19 04:20 MCV 103.8 fL (83.0-100.0) H 03/20/19 04:20 MCH 33.5 pg (28.0-33.3) H 03/13/19 11:41 MCHC 30.4 g/dL (31.6-35.5) L 03/19/19 21:10 RDW 17.4 % (11.5-14.5) H 03/20/19 04:20 Reticulocyte # 0.15 M/mcL (0.05-0.10) H 03/15/19 00:17 Neutrophils # 10.9 K/mcL (1.6-8.9) H 03/19/19 21:10 Lymphocytes # 0.5 K/mcL (0.6-4.6) L 03/17/19 14:10 Nucleated RBCs/100 WBC 0.5 /100 WBC (0) H 03/17/19 14:10 Percent Retic 6.6 % (1.6-2.8) H 03/15/19 00:17 PT 13.1 Seconds (9.4-12.1) H 03/13/19 11:41 ABG pH 7.28 pH Units (7.32-7.45) L 03/19/19 22:01 ABG pCO2 46 mmHg (35-45) H 03/20/19 05:17 ABG pO2 124 mmHg (85-104) H D 03/20/19 05:17 ABG HCO3 18 mEq/L (21-27) L 03/19/19 22:01 ABG Total CO2 27 mEq/L (20-26) H 03/20/19 05:17 ABG O2 Saturation 99 % (95-98) H 03/20/19 05:17 ABG Base Excess -8 mEq/L (-2 to 3) L 03/19/19 22:01 VBG pH 7.24 pH Units (7.32-7.42) L 03/20/19 04:35 VBG pCO2 57 mmHg (41-51) H 03/20/19 04:35 VBG pO2 69 mmHg (25-50) H 03/20/19 04:35 Sodium 121 mEq/L (136-145) L 03/20/19 04:20 Potassium 5.8 mEq/L (3.5-5.1) H 03/20/19 04:20 Chloride 90 mEq/L (98-107) L 03/20/19 04:20 Carbon Dioxide 22 mEq/L (23-29) L 03/20/19 02:30 BUN 76 mg/dL (8-23) H 03/20/19 04:20 Creatinine 9.03 mg/dL (0.70-1.30) H 03/20/19 04:20 Est GFR ( Amer) 7 (> 60) L 03/20/19 04:20 Est GFR (Non-Af Amer) 6 (> 60) L 03/20/19 04:20 Glucose 212 mg/dL (70-105) H 03/20/19 04:20 POC Glucose 151 mg/dL (70-99) H 03/20/19 06:14 Calculated Osmolality 305 (280-300) H 03/13/19 11:41 Calcium 8.3 mg/dL (8.6-10.3) L 03/20/19 04:20 Phosphorus 8.3 mg/dL (2.7-4.5) H 03/19/19 21:10 AST 64 Units/L (13-39) H 03/19/19 21:10 ALT < 3 Units/L (7-52) L 03/16/19 04:31 Lactate Dehydrogenase 284 Units/L (140-271) H 03/15/19 00:17 Troponin I 0.13 ng/mL (< 0.04) H* 03/20/19 04:20 Serum Total Protein 5.6 g/dL (6.4-8.9) L 03/19/19 21:10 Albumin 2.9 g/dL (3.5-5.7) L 03/19/19 21:10 Albumin/Globulin Ratio 1.0 (1.1-2.2) L 03/16/19 04:31 Crossmatch See Detail 03/17/19 08:26 - Clinical Findings Intake & Output: Intake & Output 03/19/19 03/20/19 03/20/19 23:59 07:59 15:59 Intake Total 360 / 1320 1401.6 / 1542.6 141 / 1542.6 Output Total 0 / 0 Balance 360 / 1320 1401.6 / 1542.6 141 / 1542.6 Weight 79.8 kg Consult Discharge Plan - Plan Referrals: [facility] [Primary Care Provider] - - Attending Attestation I examined this patient and my medical decision-making was reviewed with the Resident Physician. I agree with the documented findings, disposition and treatment plan as described except to the extent set forth below. We independently had [id number] contact with the patient I spent 50min of Critical Care time with this patient. It involved decision making of high complexity to assess, manipulate, and support vital organ system failure and/or to prevent further life threatening deterioration of the patient's condition. The time involved in the performance of separately reportable procedures was not counted toward critical care time. Patient seen and examined at bedside Labs, radiology, chart personally reviewed. Management was reviewed during multidisciplinary critical care rounds. COMPLEX CARE NURSE: Status post cardiac arrest he does have spontaneous movement but is unable to follow commands he is on sedation which we will lift to keep a goal Maher around 2-3 today. Pulm: Acute on chronic hypoxic respiratory failure in the context of cardiac arrest he still on full mechanical ventilatory support on a candidate for spontaneous breathing trial because of critical illness including shock. Cards: Patient remains in cardiogenic shock after a cardiac arrest I suspect stunned myocardium but cannot fully exclude the possibility of sepsis at this point however appears to be in decompensated heart failure with a history of reduced ejection fraction. He is on no vasopressor support right now with epinephrine which will switch over to norepinephrine cardiology is evaluated the patient for a suspected ventricular arrhythmia leading to cardiac arrest he went emergently to catheter lab the with no intervention he does have obs tructive coronary disease but sufficient collaterals per the individualized education plan aide's note and appreciate their recommendations and evaluation GI: GI prophylaxis given while on vent Nutrition: Nothing by mouth for now because of critical illness Renal: ESRD nephrology consulted will likely have to start Belén for acidosis and electrolyte abnormalities. UOP Monitored, Cont to Trend sCr and monitor Electrolytes. ID: No clear evidence of infectious process at this time but cannot fully exclude send cultures and start empiric antimicrobials for the next 24 hours to cover for hospital associated pathogens including MRSA which she is at high risk for. Heme/Onc: Has chronic anemia which appears stable there is no evidence of new vascular abnormality after CT angiogram of the aorta with runoff is a stable right arterial vascular injury after recent cardiac catheterization vascular surgery seen the patient for this and this appears stable he does have a persistent hematoma in that region Endo: Glucose Monitored Integ/MSK: Skin Care per routine ICU Nursing Protocol to prevent ulcers. Lines: All lines examined without evidence of infection : Dispo: Monitor in ICU for critical illness CODE: Code family updated at bedside <Aubrey Santiago - Last Filed: 03/20/19 13:40> Date of Encounter: 03/20/19 Time of Encounter: 07:26 Assessment and Plan (1) Bacterial endocarditis Current Visit: Yes Status: Acute Bacterial endocarditis - Tricuspid valve vegetation, LVEF 20-25%, Severe bi-atrial enlargement. Moderate mitral and tricuspid regurg - May need transferred for further care - Blood, urine, and sputum cultures ordered - Vanc and zosyn day 1 Qualifiers: Chronicity: acute Qualified Code(s): I33.0 - Acute and subacute infective endocarditis (2) Cardiac arrest Current Visit: Yes Status: Acute Cardiac arrest - Unknown etiology - Anemia, electrolyte abnormalities, endocarsitis - Plan for belén/or HD today per nephrology - Heart cath: S/P CABG, 2 patent grafts. RCA totally occluded. Sluggish RANDA 2 flow in both grafts. - Cardiology following - CTA: Negative for PE. Decreased size of right inguinal hematoma. - Blood pressure support with Norepinephrine - Amio gtt - Digoxin (3) Septic shock Current Visit: Yes Status: Acute Septic shock - secondary to bacterial endocarditis and cardiac arrest - As above (4) Acute blood loss anemia Current Visit: Yes Status: Acute Anemia - Hgb dropped to 7.8 today - Plan to transfuse 1 unit today - R inguinal hematoma stable on imaging - Monitor H&H - Giving ferrous sulfate through OG tube (5) Atrial fibrillation Current Visit: No Status: Chronic Hx of Afib - Holding eliquis Qualifiers: Atrial fibrillation type: unspecified Qualified Code(s): I48.91 - Unspecified atrial fibrillation (6) CAD (coronary artery disease) Current Visit: No Status: Chronic Hx of CAD - As above Qualifiers: Coronary Disease-Associated Artery/Lesion type: red devil artery [place] vs. transplanted heart: red devil heart Associated angina: without angina Qualified Code(s): I25.10 - Atherosclerotic heart disease of red devil coronary artery without angina pectoris (7) Chronic systolic (congestive) heart failure Current Visit: No Status: Chronic Hx of CHF - As above (8) COPD (chronic obstructive pulmonary disease) Current Visit: Yes Status: Acute Hx of COPD - Duonebs q6h - Solumedrol 40 BID - Symbicort BID Qualifiers: COPD type: unspecified COPD Qualified Code(s): J44.9 - Chronic obstructive pulmonary disease, unspecified (9) ESRD (end stage renal disease) on dialysis Current Visit: No Status: Chronic ESRD - On HD MWF - Nephrology consulted - Belén/or HD today per nephrology (10) Laceration of right femoral artery Current Visit: No Status: 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 fib, ESRD, CAD, hypertension who originally presented to [place] on low hemoglobin. He was recently discharged after a right femoral artery repair secondary to superficial pseudoaneurysm. Single-lumen was noted to be low at dialysis. He was given 2 units of packed her blood cells on day of admission. He remained stable until the evening of 03/19/19 when he suffered a cardiac arrest. Following ROSC, he was taken to catheter lab where cardiac catheterization showed severe two-vessel coronary artery disease, RCA totally occluded, previous to CABG grafts remained patent, with sluggish RANDA 2 flow. CTA was negative for pulmonary embolism, head CT was unremarkable. This morning he remains intubated and sedated on epinephrine for blood pressure support. He is bradycardic heart rate at 50, paced rhythm. He is responsive to touch and reflexes are intact. Anemic with hemoglobin of 7.8, decreased from 9.3 yesterday. Troponin I is elevated to 0.13. Echo is pending. Past Med Surg Social Fam HX - Past Medical History Medical history: atrial fibrillation, cardiomyopathy, CHF, coronary artery disease, hypertension, renal disease Additional medical history: gout Psychiatric history: no psych history - Past Surgical History Surgical History: coronary bypass (CABG), herniorrhaphy, pacemaker/AICD Additional surgical history: bowel resection - Social History Smoking Status: Never smoker Smokeless Tobacco Status: No Alcohol use: none Drug use: none - Family History Father Adopted: No Living Status: Hx Family Cardiac Disorders: Yes ([place]) Hx Family Respiratory Disorders: No Hx Family Cancer: No Hx Family GI Disorders: No Hx Family Endocrine Disorder: No Hx Family Neuromuscular Disorders: No Hx Family Neurologic Disorders: No Hx Family HEENT Disorders: No Hx Family Autoimmune Disorders: No Grandfather Family Member Ethnicity: Non- Living Status: Hx Family Cardiac Disorders: Yes Hx Family Respiratory Disorders: No Hx Family Cancer: Yes (mothers side) Hx Family Endocrine Disorder: No Hx Family Neuromuscular Disorders: No Hx Family Neurologic Disorders: No Hx Family HEENT Disorders: No Hx Family Autoimmune Disorders: No ROS unobtainable: due to endotracheal tube All Systems: The remainder of the systems were reviewed and are negative Physical Examination Vital Signs: Vital Signs, Last 4 Hours Temp Pulse Resp BP Pulse Ox 03/20/19 06:45 19 96 03/20/19 06:00 96.2 F L 51 16 88/62 99 03/20/19 05:00 51 16 138/92 100 03/20/19 04:00 95.8 F L 50 16 88/66 100 03/20/19 03:53 18 100 Gen: Vitals noted. Bradycardic, hypotensive, intubated and sedated Eyes: anicteric sclerae, moist conjunctivae. Pupils 3mm, round, equal and reactive to light HENT: Atraumatic, normocephalic. ETT in place, with moist mucous membranes and no mucosal ulcerations Neck: Trachea midline, supple Cardiac: Bradycardic, hypotensive, peripheral pulses palpable, no LE edema, Heart sounds difficult to auscultate Pulmonary: CTA bilaterally, no wheezes, rales or rhonchi, equal chest expansion Abdomen: soft, nondistended no rigidity or guarding. No masses or hepatosplenomegaly MSK: ROM intact, no joint swelling noted Extremities: no BLE edema, no cyanosis or clubbing. R forearm fistula Skin: Normal temperature, turgor and texture; no rash, ulcers or subcutaneous nodules Neuro: Responsive to touch, gag reflex intact Psych: Unable to assess Ventilator Settings Ventilator Settings: Ventilator Settings, Last 8 Hours Ventilator Tidal Volume 500 Setting Ventilator Tidal Volume 500 Setting Ventilator Tidal Volume 500 Setting Ventilator Tidal Volume 500 Setting Ventilator Tidal Volume 500 Setting Ventilator Tidal Volume 500 Setting Ventilator Tidal Volume 500 Setting Ventilator Tidal Volume 500 Setting Ventilator Tidal Volume 500 Setting Ventilator Tidal Volume 500 Setting Ventilator Tidal Volume 500 Setting Ventilator Tidal Volume 500 Setting Ventilator Tidal Volume 500 Setting Ventilator Respiratory Rate 14 Setting Ventilator Respiratory Rate 14 Setting Ventilator Respiratory Rate 14 Setting Ventilator Respiratory Rate 14 Setting Ventilator Respiratory Rate 14 Setting Ventilator Respiratory Rate 14 Setting Ventilator Respiratory Rate 14 Setting Ventilator Respiratory Rate 14 Setting Ventilator Respiratory Rate 14 Setting Ventilator Respiratory Rate 14 Setting Ventilator Respiratory Rate 14 Setting Ventilator Respiratory Rate 14 Setting Ventilator Respiratory Rate 14 Setting Actual Respiratory Rate 17 Actual Respiratory Rate 16 Actual Respiratory Rate 16 Actual Respiratory Rate 23 Positive End Expiratory 5 Pressure Positive End Expiratory 5 Pressure Positive End Expiratory 5 Pressure Positive End Expiratory 5 Pressure Positive End Expiratory 5 Pressure Positive End Expiratory 5 Pressure Positive End Expiratory 5 Pressure Positive End Expiratory 5 Pressure Positive End Expiratory 5 Pressure Positive End Expiratory 5 Pressure Positive End Expiratory 5 Pressure Positive End Expiratory 5 Pressure Positive End Expiratory 5 Pressure Peak Inspiratory Airway 6.7 Pressure Peak Inspiratory Airway 6.2 Pressure Peak Inspiratory Airway 7.0 Pressure Peak Inspiratory Airway 15 Pressure Results - Laboratory Findings CBC and BMP: 03/20/19 10:00 03/20/19 10:00 ABG ABG pH 7.34 pH Units (7.32-7.45) 03/20/19 05:17 ABG pCO2 46 mmHg (35-45) H 03/20/19 05:17 ABG pO2 124 mmHg (85-104) H D 03/20/19 05:17 ABG O2 Saturation 99 % (95-98) H 03/20/19 05:17 PT/INR, D-dimer PT 13.1 Seconds (9.4-12.1) H 03/13/19 11:41 Abnormal lab findings: Abnormal lab results WBC 13.7 K/mcL (4.3-11.1) H 03/19/19 21:10 RBC 2.38 M/mcL (4.19-5.50) L 03/20/19 04:20 Hgb 7.8 g/dL (12.9-16.9) L D 03/20/19 04:20 Hct 24.7 % (37.5-50.1) L 03/20/19 04:20 MCV 103.8 fL (83.0-100.0) H 03/20/19 04:20 MCH 33.5 pg (28.0-33.3) H 03/13/19 11:41 MCHC 30.4 g/dL (31.6-35.5) L 03/19/19 21:10 RDW 17.4 % (11.5-14.5) H 03/20/19 04:20 Reticulocyte # 0.15 M/mcL (0.05-0.10) H 03/15/19 00:17 Neutrophils # 10.9 K/mcL (1.6-8.9) H 03/19/19 21:10 Lymphocytes # 0.5 K/mcL (0.6-4.6) L 03/17/19 14:10 Nucleated RBCs/100 WBC 0.5 /100 WBC (0) H 03/17/19 14:10 Percent Retic 6.6 % (1.6-2.8) H 03/15/19 00:17 PT 13.1 Seconds (9.4-12.1) H 03/13/19 11:41 ABG pH 7.28 pH Units (7.32-7.45) L 03/19/19 22:01 ABG pCO2 46 mmHg (35-45) H 03/20/19 05:17 ABG pO2 124 mmHg (85-104) H D 03/20/19 05:17 ABG HCO3 18 mEq/L (21-27) L 03/19/19 22:01 ABG Total CO2 27 mEq/L (20-26) H 03/20/19 05:17 ABG O2 Saturation 99 % (95-98) H 03/20/19 05:17 ABG Base Excess -8 mEq/L (-2 to 3) L 03/19/19 22:01 VBG pH 7.24 pH Units (7.32-7.42) L 03/20/19 04:35 VBG pCO2 57 mmHg (41-51) H 03/20/19 04:35 VBG pO2 69 mmHg (25-50) H 03/20/19 04:35 Sodium 121 mEq/L (136-145) L 03/20/19 04:20 Potassium 5.8 mEq/L (3.5-5.1) H 03/20/19 04:20 Chloride 90 mEq/L (98-107) L 03/20/19 04:20 Carbon Dioxide 22 mEq/L (23-29) L 03/20/19 02:30 BUN 76 mg/dL (8-23) H 03/20/19 04:20 Creatinine 9.03 mg/dL (0.70-1.30) H 03/20/19 04:20 Est GFR ( Amer) 7 (> 60) L 03/20/19 04:20 Est GFR (Non-Af Amer) 6 (> 60) L 03/20/19 04:20 Glucose 212 mg/dL (70-105) H 03/20/19 04:20 POC Glucose 151 mg/dL (70-99) H 03/20/19 06:14 Calculated Osmolality 305 (280-300) H 03/13/19 11:41 Calcium 8.3 mg/dL (8.6-10.3) L 03/20/19 04:20 Phosphorus 8.3 mg/dL (2.7-4.5) H 03/19/19 21:10 AST 64 Units/L (13-39) H 03/19/19 21:10 ALT < 3 Units/L (7-52) L 03/16/19 04:31 Lactate Dehydrogenase 284 Units/L (140-271) H 03/15/19 00:17 Troponin I 0.13 ng/mL (< 0.04) H* 03/20/19 04:20 Serum Total Protein 5.6 g/dL (6.4-8.9) L 03/19/19 21:10 Albumin 2.9 g/dL (3.5-5.7) L 03/19/19 21:10 Albumin/Globulin Ratio 1.0 (1.1-2.2) L 03/16/19 04:31 Crossmatch See Detail 03/17/19 08:26 - Clinical Findings Intake & Output: Intake & Output 03/19/19 03/19/19 03/20/19 15:59 23:59 07:59 Intake Total 840 / 1320 360 / 1320 1401.6 / 1401.6 Balance 840 / 1320 360 / 1320 1401.6 / 1401.6 Weight 79.8 kg
[2019-03-20] MEDS ORDERED: Artificial Tears SOLN 15 ML BOTTLE BOTH EYES PRN (07:55)
[2019-03-20] MEDS ORDERED: Furosemide 40 MG TABLET PO SCH (08:00)
[2019-03-20] MEDS ORDERED: Calcium Acetate 667 MG CAPSULE PO SCH (08:00)
--- NOTE | 2019-03-20 08:13 | Event Note ---
Date of Encounter: 03/20/19 Time of Encounter: 07:46 Ingris Jarvis was called overhead. On arrival to the room patient was receiving chest compressions. ACLS was done please refer to nurse note. Successfully achieved ROSC and was sent the Unit. Personally reviewed EKG that appeared as ventricular tachycardia. In the Unit patient's Bp declined and IO was obtained for access with amiodarone, epinephrine, and IVF was started. EKG reviewed ventricular paced rhthme, a FAST exam was done at bedside with concern for suspected retroperitoneal bleed. Vascular surgery was called and discussed the case. Patient hgb came back at 9.3-which is not significantly decreased from previous. Patient metabolic acidosis with Bicarb significantly decreased from previous and bicarb drip was started. Patient was sent to radiology department for imaging while present, and personally reviewed Images and called radiologist after and discussed images-hematoma noted that is unchanged, and CTA chest showed no PE. significant coronary artery calcifications. Patient was brought back in the ICU where lead 2 was noted to be elevated. Interventional cardiology was contacted and discussion of the case. Central line was obtained-please see procedure note. Patient the EKG showed ventricular paced rhyhm with elevated troponin. Patient was taken to laboratory tech that showed unchanged coronaries and slow flow due to poor cardiac output. Balloon pump was considered but patient was not a candidate given risks> benefit and it could be detremental given patient already has a major vascular complication post cath recently. Patient was taken back to the unit and repeat labs was noted worsening acidosis and hyperkalemia. Nephrology was called and discussed the case with recommendation to slow the bicarb drip to 25ml/hr. Patient continues to improve. Discussion with family was done frequently throughout the night inaddition to updates on the clinical situation, risks, procedures, plan and likely prognosis,. Family was encouraged and participated in medical decision making throughout the night. face to face encounter on 03/19/2019 and CCT: atleast 3 hours and 18 minutes
[2019-03-20] MEDS ORDERED: FentaNYL (PF) 1,000 MCG in 0.9 % Sodium Chloride 80 ML IVC SCH (08:15)
[2019-03-20] MEDS ORDERED: Norepinephrine 4 MG in 0.9 % Sodium Chloride 250 ML IVC SCH (08:15)
--- NOTE | 2019-03-20 08:17 | Event Note ---
Date of Encounter: 03/20/19 Time of Encounter: 08:17 Central Venous Catheter (CVC, Central Line) Placement Date: 03/20/2019 Time: 00:50 Indication: Hemodynamic monitoring/Intravenous access Attending: A time-out was completed verifying correct patient, procedure, site, positioning, and special equipment if applicable. The patient was placed in a dependent position appropriate for central line placement based on the vein to be cannulated. The patients right neck was prepped and draped in sterile fashion. 1% Lidocaine was used to anesthetize the surrounding skin area. A triple lumen 9-Telugu Cordis catheter was introduced into the the internal jugular using the Seldinger technique and under ultrasound guidance. US used to verify position in the vein transverse and longitude view. The catheter was threaded smoothly over the guide wire and appropriate blood return was obtained. Each lumen of the catheter was evacuated of air and flushed with sterile saline. The catheter was then sutured in place to the skin and a sterile dressing applied. Perfusion to the extremity distal to the point of catheter insertion was checked and found to be adequate. was present for the entire procedure. Estimated Blood Loss: 5cc The patient tolerated the procedure well and there were no complications.
[2019-03-20] MEDS: Artificial Tears SOLN 15 ML BOTTLE BOTH EYES SCH ×3 (08:20→16:42)
[2019-03-20 08:40] LABS: Magnesium 2.4 mg/dL (1.6-2.6)
[2019-03-20] MEDS: *HR* Heparin 5,000 UNIT/ML VIAL SQ SCH ×2 (08:56→16:42)
[2019-03-20] MEDS ORDERED: Chlorhexidine Rinse 15 ML MOUTHWASH MM SCH (09:00)
[2019-03-20] MEDS ORDERED: Renal Vitamin 1 CAP CAPSULE PO SCH (09:00)
[2019-03-20] MEDS ORDERED: Pantoprazole 40 MG VIAL IVP SCH (09:00)
[2019-03-20] MEDS ORDERED: Colchicine 0.6 MG TABLET PO SCH (09:00)
[2019-03-20] MEDS ORDERED: Aspirin Enteric Coated 81 MG Tablet PO SCH ×2 (09:00)
[2019-03-20] MEDS ORDERED: Apixaban 5 MG TABLET PO SCH (09:00)
[2019-03-20] MEDS ORDERED: Ferrous Sulfate Oral Soln 300 MG/5 ML UDC GTUBE SCH (09:15)
[2019-03-20] MEDS ORDERED: Aspirin 81 MG TAB.CHEW PO SCH (09:15)
[2019-03-20] MEDS ORDERED: Perflutren Lipid Microsphere 1.3 ML in 0.9 % Sodium Chloride 8.7 ML IVP ONE (09:35)
--- NOTE | 2019-03-20 09:52 | Nephrology Progress Note ---
Date of Encounter: 03/20/19 Time of Encounter: 09:47 - Assessment and Plan (1) ESRD (end stage renal disease) on dialysis Current Visit: No Status: Acute Current hemodialysis regimen is Wednesday [place]. Will initiate CRRT therapy after temp line is placed. Potassium noted to be 5.8, will correct with HD. Strict I&O. Avoid other nephrotoxins and renal dose all medications. Daily weights. Recheck BMP before CRRT initiation. Consents obtained for temporary HD line and CRRT. Spoke at length with the family regarding critical status of patient and complications due to his recent left heart catheter to the left groin, and hematoma to the right groin explained that this compensates things with line placement. Spoke with IR directly they will proceed with temporary HD line. Spoke with IR again, they will place temp HD line under fluoroscopy in IR suite, will order CRRT. Agree with transfer to tertiary care center for possible vegetation with echo and due to the fact he is high risk with recent cardiac arrest. He continues to be on pressor support and antiarrhythmics. Updated family on POC, they agree with CRRT to begin here, given the risks, and would still like a bed to be pursed at tertiary center. The transfer is problematic due to [place] prior authorizations, which I personally have never encountered with a transfer before,unsure if anything can be done to expedite the process. [facility] in is working on prior approval. (2) Acute blood loss anemia Current Visit: Yes Status: Acute Hgb is 7.8 s/p 3 units PRBCs this hospitalization. Transfusion parameters per primary team (3) Edema Current Visit: No Status: Acute Mostly resolved except on RLE from recent bleed. Qualifiers: Edema type: generalized Qualified Code(s): R60.1 - Generalized edema (4) Right groin pain Current Visit: Yes Status: Acute Pt denies pain, only numbness. Bruising and ecchymotic area painful to touch. Imaging reviewed, no further recommendations per vascular. (5) Hyperkalemia Current Visit: Yes Status: Acute Noted at 5.8, see above. (6) Cardiac arrest Current Visit: Yes Status: Acute Per primary team. Subjective Principal diagnosis: anemia, ESRD Interval history: Pt seen and examined in the intensive care unit. ET tube noted. ROS unobtainable due to ET tube and sedation. Previous event notes and reports noted. Incidental for temporary HD line and asthma obtained from , all questions answered. Will plan for CRRT initiation after line placement. Objective - Vital Signs Vital signs: Vital Signs Temp Pulse Resp BP Pulse Ox 03/20/19 09:26 14 101/62 100 03/20/19 09:00 50 15 89/48 100 03/20/19 08:00 96.4 F L 50 15 93/55 99 03/20/19 07:33 15 94/51 94 03/20/19 07:31 96.4 F L 03/20/19 07:00 50 16 94/51 99 03/20/19 06:45 19 96 03/20/19 06:00 96.2 F L 51 16 88/62 99 03/20/19 05:00 51 16 138/92 100 03/20/19 04:00 95.8 F L 50 16 88/66 100 03/20/19 03:53 18 100 03/20/19 03:00 51 18 98/59 98 03/20/19 02:00 51 18 87/54 99 03/20/19 01:00 50 17 95/49 98 03/20/19 00:09 25 100 03/20/19 00:00 50 17 118/68 99 03/19/19 23:00 50 17 105/71 98 03/19/19 22:30 99.1 F 50 24 118/68 98 03/19/19 22:00 99.1 F 50 18 83/70 98 03/19/19 21:49 23 100 03/19/19 20:30 16 99 03/19/19 19:54 16 93 03/19/19 19:43 120 138/103 91 03/19/19 18:35 97.9 F 122 18 125/80 98 03/19/19 15:57 20 03/19/19 14:58 97.7 F 84 18 113/74 97 03/19/19 10:44 97.8 F 117 19 139/90 99 03/19/19 10:12 16 99 Intake and Output 03/19/19 03/20/19 03/20/19 23:59 07:59 15:59 Intake Total 360 / 1320 1401.6 / 1542.6 141 / 1542.6 Output Total 0 / 0 Balance 360 / 1320 1401.6 / 1542.6 141 / 1542.6 Intake: IV Fluids 1401.6 / 1542.6 141 / 1542.6 0.9 % Sodium Chloride 1,000 ML 1000 / 1000 @ 999 mls/hr IVC .Q1H1M [facility] Rx# :[id number] EPINEPHrine 5 MG In Dextrose 5% 251 / 311 60 / 311 250 ML @ 5 MCG/MIN 15.3 mls/hr IVC CONT [facility] Rx#:[id number] Levophed 4 MG In 0.9 % Sodium 1 / 1 Chloride 250 ML @ 8 MCG/MIN 30. 48 mls/hr IVC CONT [facility] Rx#: [id number] Diprivan 1,000 mg In 100 ml @ 80 / 80 20 MCG/KG/MIN 8.832 mls/hr IVC .[id number] [facility] Rx#:[id number] Sodium Bicarbonate 150 MEQ In 100.6 / 100.6 Dextrose 5% 1,000 ML @ 50 mls/ hr IVC .Q23H [facility] Rx#:[id number] Calcium Gluconate 1gm/50mL 1 gm 50 / 50 In 50 ml @ 100 mls/hr IVPB ONCE [facility] Rx#:[id number] Oral 360 / 1320 Output: Catheter 0 / 0 Gastric Drainage 0 / 0 Other: Meal Dinner Percent of Meal Consumed 35% Weight 79.8 kg Patient Weight 03/20/19 23:59 Weight 79.8 kg - General Appearance General appearance: Present: well-developed, well-nourished EENT: Present: ATNC, hearing intact, vision intact Neck: Present: supple Respiratory: Present: clear Cardiology: Present: edema (Tense, painful pitting edema noted to right groin, resolving hematoma. ), normal S1, normal S2 Dialysis Vascular Access: Arteriovenous Fistula thrill: Yes bruit: Yes Gastrointestinal: Present: normoactive bowel sounds, no tenderness, no guarding Integumentary: Present: no rash, warm and dry Additional Comments: Sedated on vent support. Musculoskeletal: Present: no deformities, no erythema Psychiatric: Present: mood/affect appropriate, cooperative - Lab 03/20/19 10:00 03/20/19 10:00 Most recent lab results 03/19/19 03/19/19 03/20/19 21:10 22:01 02:21 ABG pH 7.28 L 7.33 ABG pCO2 39 45 ABG pO2 326 H 269 H D ABG HCO3 18 L 24 ABG O2 Saturation 100 H 100 H Calcium 8.5 L Phosphorus 8.3 H Magnesium 2.5 03/20/19 03/20/19 03/20/19 02:30 04:20 05:17 ABG pH 7.34 ABG pCO2 46 H ABG pO2 124 H D ABG HCO3 25 ABG O2 Saturation 99 H Calcium 8.0 L 8.3 L Phosphorus Magnesium 2.4 Consult Discharge Plan - Plan [facility]: [facility] [Primary Care Provider] -
[2019-03-20] MEDS ORDERED: Piperacillin/Tazobactam 3.375 GM in 0.9 % Sodium Chloride Mini Bag 100 ML IVPB SCH (10:00)
[2019-03-20] MEDS ORDERED: Budesonide/Formoterol 160/4.5 1 PUFF INH IH SCH (10:00)
[2019-03-20 10:17] LABS: Hematocrit 24.7 % (37.5-50.1); Hemoglobin 7.8 g/dL (12.9-16.9)
[2019-03-20 10:21] LABS: VBG Ionized Calcium 1.05 mmol/L (1.15-1.35)
--- NOTE | 2019-03-20 10:32 | Internal Med Progress Note ---
Hospitalist Progress Note - Encounter Date of Encounter: 03/20/19 Time of Encounter: 10:27 - Subjective Interval History: 73-year-old male with a history of coronary disease status post CABG and stenting. Patient also has an AICD (EF 30%). Patient also has a history of end-stage renal disease on dialysis, hypertension, atrial fibrillation on eliquis. Patient did undergo cardiac catheterization on February 27 at which time he was noted to have patent grafts, but unfortunately did develop a right fem pseudoaneurysm which required operative repair. Last night patient experienced V. fib arrest, requiring DC cardioversion 2. He was resuscitated a nd transferred to the intensive care unit. Patient is currently sedated and intubated, on norepinephrine as well as amiodarone. Review of his laboratory studies from the last 24 hours indicate patient had metabolic acidosis, hyperkalemia as well as hyponatremia. Cardiac catheterization done this morning showed severe two-vessel coronary disease with right coronary artery totally occluded, LAD subtotally occluded. Patient also had 2 patent CABG grafts. Cardiology is consulted as his nephrology for consideration of CRRT. Pt does have a right IJ triple-lumen catheter presently. Unable to obtain a review of systems this patient is currently intubated and sedated. - Exam Vitals: Temp Pulse Resp BP Pulse Ox 96.4 F L 50 15 103/66 100 03/20/19 08:00 03/20/19 10:00 03/20/19 10:00 03/20/19 10:00 03/20/19 10:00 Exam: Vitals: Reviewed General: Sedated and intubated OP: dry Cardiovascular: irregularly irregular, normal S1 & S2, no rubs, murmurs or gallops. Lungs: CTA b/l, no wheezes, rales or crackles. Abdomen: Soft, non-tender, no rigidity. NABS Extremities: Tr edema Neurological: No gross focal neurological abnormalities. Skin: warm and dry DVT Prophylaxis: off chemical dvt prophylaxis due to recent hematoma. hold intermittent pneumatic compression pending venous duplex of the lower extr. - Summary of Assessment and Plan Summary of Assessment and Plan: Cardiac Arrest, CAD, ischemic cardiomyopathy -Decision was made last night not to perform cooling after ROSC as patient was mentating well -Cardiac catheterization reviewed -cardiology input appreciated Endocarditis -Tricuspid Valve and on Wire -On abx Vanco and Zosyn -will call [facility] regarding transfer for definitive management Acute Resp Failure -continue full vent support -empiric abx Day #1 Zosyn/Harveyo -follow cx data Chronic Systolic CHF -Tenuous volume status, CRRT to start today due to hemodynamic instability, multiple electrolyte abnormalities Recent repair of RFA ESRD -on HD Hyperkalemia. Hyponatremia -Patient has dialysis plan today which should hopefully correct -repeat labs ordered Afib -Rate controlled -Anticoagulation is temporarily held due to need for invasive lines, slight drop in hemoglobin, will restart when able COPD -Continue bronchodilators, monitor Acute Blood Loss Anemia -Repeat labs ordered, transfuse as needed with dialysis HTN -Currently on pressors Patient was discussed with pulmonary medicine on rounds. - Time Spent with Patient Total time spent is greater than 50% in coordination of care (as documented) at patient's floor/unit and/or counseling patient: Greater than 35 minutes Internal Medicine: Result - Labs CBC & Chem 7: 03/20/19 10:00 03/20/19 10:00 Labs: Short CBC 03/19/19 03/20/19 03/20/19 Range/Units 21:10 04:20 10:00 WBC 13.7 H 10.5 (4.3-11.1) K/mcL Hgb 9.3 L 7.8 L D 7.8 L (12.9-16.9) g/dL Hct 30.6 L 24.7 L 24.7 L (37.5-50.1) % Plt Count 179 147 (140-400) K/mcL Neutrophils # 10.9 H (1.6-8.9) K/mcL BMP 03/19/19 03/19/19 03/20/19 08:32 21:10 02:30 Sodium 126 L 125 L 123 L Potassium 4.9 5.5 H 5.9 H Chloride 91 L 89 L 87 L Carbon Dioxide 23 16 L 22 L BUN 62 H 67 H 74 H Creatinine 8.23 H 8.60 H 8.87 H Glucose 128 H 209 H 237 H Calcium 8.7 8.5 L 8.0 L 03/20/19 04:20 Sodium 121 L Potassium 5.8 H Chloride 90 L Carbon Dioxide 23 BUN 76 H Creatinine 9.03 H Glucose 212 H Calcium 8.3 L Cardiac Enzymes 03/19/19 03/20/19 03/20/19 Range/Units 22:58 00:25 04:20 Troponin I 0.07 H* 0.09 H* 0.13 H* (< 0.04) ng/mL Liver Function 03/19/19 Range/Units 21:10 Total Bilirubin 0.5 (0.3-1.0) mg/dL AST 64 H (13-39) Units/L ALT 21 (7-52) Units/L Alkaline Phosphatase 48 (34-104) Units/L Albumin 2.9 L (3.5-5.7) g/dL - ABG Interpretation ABG results: ABG ABG pH 7.34 pH Units (7.32-7.45) 03/20/19 05:17 ABG pCO2 46 mmHg (35-45) H 03/20/19 05:17 ABG pO2 124 mmHg (85-104) H D 03/20/19 05:17 ABG O2 Saturation 99 % (95-98) H 03/20/19 05:17 PT/INR, D-dimer PT 13.1 Seconds (9.4-12.1) H 03/13/19 11:41 - Impressions Impressions Chest X-Ray 03/19/19 22:43 IMPRESSION: 1. Life support appliances appear appropriately positioned. 2. Congestive heart failure is most likely given the radiographic findings. Pneumonia is a consideration in areas of consolidation with pleural effusion. 3. Calcific atherosclerosis aorta. 4. Cardiomegaly. D/ / Alex Malloy / Alex Malloy Interpreting Provider: Alex Malloy X-Ray 03/19/19 22:44 IMPRESSION: Findings compatible with appropriate intragastric termination of the OG tube. D/ / Santy Carrasco / Santy Carrasco Interpreting Provider: Santy Carrasco Aorta w/Runoff CTA 03/19/19 23:42 IMPRESSION: No evidence of an acute aortic syndrome. Negative for acute pulmonary embolism to the segmental level. Patent bilateral lower extremity arterial vasculature with three-vessel runoff at least to the mid calves and probably single-vessel runoff to the feet. Evaluation is limited distally due to atherosclerotic calcification. Decreased size of right inguinal hematoma. No residual pseudoaneurysm. Features of heart failure, including cardiomegaly with large bilateral pleural effusions (increased), small volume abdominal ascites (increased), and body wall anasarca (increased). Exam findings were discussed by Dr. Santy Carrasco with Dameon Plaza DO on 03/20/2019 at 00:01. D/ / Santy Carrasco / Santy Carrasco Interpreting Provider: Santy Carrasco Chest CTA 03/19/19 23:42 IMPRESSION: No evidence of an acute aortic syndrome. Negative for acute pulmonary embolism to the segmental level. Patent bilateral lower extremity arterial vasculature with three-vessel runoff at least to the mid calves and probably single-vessel runoff to the feet. Evaluation is limited distally due to atherosclerotic calcification. Decreased size of right inguinal hematoma. No residual pseudoaneurysm. Features of heart failure, including cardiomegaly with large bilateral pleural effusions (increased), small volume abdominal ascites (increased), and body wall anasarca (increased). Exam findings were discussed by Dr. Santy Carrasco with Dameon Plaza DO on 03/20/2019 at 00:01. D/ / Santy Carrasco / Santy Carrasco Interpreting Provider: Santy Carrasco Head CT 03/20/19 00:08 IMPRESSION: No acute intracranial abnormality. D/ / Santy Carrasco / Santy Carrasco Interpreting Provider: Santy Carrasco Chest X-Ray 03/20/19 01:08 IMPRESSION: No acute interval change. Stable appropriate endotracheal tube positioning. No substantial change in layering effusions, basilar opacities and suspected pulmonary edema. Right upper lung opacities, correlating with CT pleuroparenchymal scarring/thickening, is unchanged. D/ / Santy Carrasco / Santy Carrasco Interpreting Provider: Santy Carrasco Chest X-Ray 03/20/19 07:27 IMPRESSION: 1. Stable lines, tubes, and support devices. 2. Stable diffuse airspace opacities with bilateral effusions. D/ / 03/20/2019 07:34:02 Alexus Baig MD / earnold Interpreting Provider: Alexus Baig MD Consult Discharge Plan - Plan [facility]errals: [facility] [Primary Care Provider] -
[2019-03-20] MEDS ORDERED: *HR* Heparin 5,000 UNIT/ML VIAL ONE ×3 (10:42→15:19)
[2019-03-20 11:01] LABS: INR 1.1; Prothrombin Time 12.3 Seconds (9.4-12.1)
--- NOTE | 2019-03-20 11:22 | Cardiology Progress Note ---
Date of Encounter: 03/20/19 Time of Encounter: 10:00 Assessment and Plan (1) Bacterial endocarditis Current Visit: Yes Status: Acute TTE completed. High suspicion for endocarditis with echodensities on trucuspid valve leaflets and ICD leads seen. Primary team notified. Vancomycin started by primary team. Transfer to tertiary center for evaluation recommended. Qualifiers: Chronicity: unspecified Qualified Code(s): I33.0 - Acute and subacute infective endocarditis (2) Cardiac arrest with ventricular fibrillation Current Visit: Yes Status: Acute Patient initially admitted from dialysis center with acute on chronic anemia. Developed cardiac arrest last night with external shock x2. Placed on Amiodarone gtt. Known ischemic cardiomyoapthy with EF 30%. ICD in place. ICD interrogation this morning showed two occurrences of vfib. One at 2021 treated successfully with ATP x2. Reoccurrence at 2038 treated successfully with ATP x2 and ICD shock x1. S/p C 03/19/19 with no intervention. 2/2 patent bypass grafts. Slow flow noted in grafts likely related to vfib arrest. No recurrent v-fib or VT seen. Battery level is low and will need evaluated for replacement after IE evaluation and treatment completed. Continue amiodarne gtt. Keep potassium above 4.0 and magnesium above 2.0. Of note on norepinephrine for hypotension and off bb. Restart beta-des when able. (3) Ischemic cardiomyopathy Current Visit: Yes Status: Acute Known ICMP. Mild fluid overload on exam. On dialysis. Planning for possible CVVH. Nephrology following. (4) CAD (coronary artery disease) Current Visit: No Status: Chronic H/o 2V CABG. Recent [facility] 02/2019 with no intervention, complicated by hematoma. S/p repeat [facility] tis admission with no intervention. Restart asa, statin, bb when able. Qualifiers: Coronary Disease-Associated Artery/Lesion type: jena artery Platinum vs. transplanted heart: jena heart Associated angina: without angina Qualified Code(s): I25.10 - Atherosclerotic heart disease of jena coronary artery without angina pectoris Discussion w patient/family: The assessment and plan as outlined above was discussed with the patient and/or family members who expressed understanding and agreement. All questions were answered. Thank you for involving us in the care of your patient. Please call with any questions. Subjective Principal diagnosis: anemia, ESRD Interval history: Mr. Dumont remains intubated and sedated. Nurse at bedside. No new events overnight. Objective Vital Signs, Last 4 Hours Temp Pulse Resp BP Pulse Ox 03/20/19 11:10 14 105/64 100 03/20/19 11:00 51 14 105/64 100 03/20/19 10:58 51 23 105/68 99 03/20/19 10:00 50 15 103/66 100 03/20/19 09:26 14 101/62 100 03/20/19 09:00 50 15 89/48 100 03/20/19 08:00 96.4 F L 50 15 93/55 99 03/20/19 07:33 15 94/51 94 03/20/19 07:31 96.4 F L General: Other (Intubated and sedated.) HEENT: Other (ET tube in place) Neck: No JVD, Normal carotid pulses Cardiac: Reg Rate and Rhythm, Normal S1 and S2, No Murmur Lungs: Normal Breath Sounds, No Wheeze, Rales, Rhonchi Neuro: Other (sedated) Abdomen: Soft, Non-Tender Extremities: Other (1+ pitting edema BLE) Results 03/20/19 10:00 03/20/19 10:00 Lab Results 03/19/19 03/19/19 03/19/19 21:10 21:10 22:58 WBC 13.7 H Hgb 9.3 L Hct 30.6 L Plt Count 179 INR Sodium 125 L Potassium 5.5 H Chloride 89 L Carbon Dioxide 16 L BUN 67 H Creatinine 8.60 H Glucose 209 H Calcium 8.5 L Magnesium 2.5 Total Bilirubin 0.5 AST 64 H ALT 21 Alkaline Phosphatase 48 Troponin I 0.07 H* 03/20/19 03/20/19 03/20/19 00:25 02:30 04:20 WBC Hgb Hct Plt Count INR Sodium 123 L 121 L Potassium 5.9 H 5.8 H Chloride 87 L 90 L Carbon Dioxide 22 L 23 BUN 74 H 76 H Creatinine 8.87 H 9.03 H Glucose 237 H 212 H Calcium 8.0 L 8.3 L Magnesium 2.4 Total Bilirubin AST ALT Alkaline Phosphatase Troponin I 0.09 H* 0.13 H* 03/20/19 03/20/19 03/20/19 04:20 10:00 10:00 WBC 10.5 Hgb 7.8 L D 7.8 L Hct 24.7 L 24.7 L Plt Count 147 INR 1.1 Sodium Potassium Chloride Carbon Dioxide BUN Creatinine Glucose Calcium Magnesium Total Bilirubin AST ALT Alkaline Phosphatase Troponin I 03/20/19 10:00 WBC Hgb Hct Plt Count INR Sodium Potassium 5.8 H Chloride Carbon Dioxide BUN Creatinine Glucose Calcium Magnesium Total Bilirubin AST ALT Alkaline Phosphatase Troponin I - Imaging and Cardiology Echo: report reviewed - EKG Interpretation EKG results cardiology: personally reviewed Consult Discharge Plan - Plan [facility]errals: [facility] [Primary Care Provider] - Cardiac Rehab - Cardiac Rehab Cardiac Rehab: Phase I consult completed. Patient was educated on why Cardiac Rehabilitation is beneficial to his/her health. Participating in a cardiac rehabilitation can improve the following: strengthen your heart, improve ejection fraction, weight reduction, decrease cholesterol levels, lower blood pressure, lower blood sugar, improve stamina, and enhance self-image. If he/she has any questions, they were instructed to call [facility] at [phone].
[2019-03-20] MEDS ORDERED: 0.9 % Sodium Chloride 250 ML IVC PRN (13:00)
[2019-03-20] MEDS ORDERED: Albumin 25% 25gram/100mL 25 GM/100 ML IV.SOLN IVPB PRN (13:00)
[2019-03-20] MEDS ORDERED: *HR* Heparin 10,000 UNIT/10 ML VIAL IV PRN (13:00)
--- NOTE | 2019-03-20 13:07 | Discharge Summary ---
Orders not resulted at time of discharge: Pending orders 03/20/19 09:44 Culture,Sputum with Gram Stain [RM] Stat Culture,Urine [RM] Stat 03/20/19 10:26 Culture,Blood [BC] Stat Date of Encounter: 03/20/19 Time of Encounter: 12:51 - Discharge Diagnosis (1) Cardiac arrest with ventricular fibrillation Priority: Primary Status: Acute Assessment and Plan: Patient achieved return of spontaneous circulation, he was not placed on cooling protocol per team last night Patient remains on amiodarone drip, norepi, cardiology is following Echocardiogram showed tricuspid valve vegetation as well as a vegetation on one of his AICD wires. Echo does show moderate tricuspid regurgitation. Pulmonary hypertension. EF of 20-25%. Blood cultures have remained negative to date, patient is day #1 of IV Zosyn and vancomycin for endocarditis I discussed the case with [facility], Dr. Marino has accepted this patient in transfer (2) Bacterial endocarditis Priority: Secondary Status: Acute Assessment and Plan: as outlined above Qualifiers: Chronicity: acute Qualified Code(s): I33.0 - Acute and subacute infective endocarditis (3) ESRD (end stage renal disease) on dialysis Priority: Secondary Status: Acute Assessment and Plan: Last hemodialysis was on March 18. Patient now has a femoral line for temporary dialysis. Patient is to be transferred within the hour so will have dialysis performed at [facility]. Nephrology has been following. Patient has hyperkalemia which has improved since this morning. Also hypo-day treatment which should correct with dialysis. (4) Ischemic cardiomyopathy Priority: Secondary Status: Acute Assessment and Plan: Management as outlined above, patient remains hypotensive on norepinephrine. Cardiac Catheterization results as mentioned. (5) Hyperkalemia Priority: Secondary Status: Acute Assessment and Plan: Slightly improved patient does need dialysis. 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 He was evaluated by vascular surgery and felt simply not need acute intervention Hospital course: Mr. Dumont is a 73 year old male with past medical history of coronary disease status post CABG and stenting, ischemic cardiopathy with an EF of 30% status post AICD. End-stage renal disease on dialysis, hypertension, chronic atrial fibrillation on eliquis. Patient recently underwent cardiac catheterization on 02/27/2019, where he was noted to have patent grafts but unfortunately did develop a right femoral pseudoaneurysm which required operative repair. Patient was readmitted to our facility on March 13 for worsening fatigue, worsening anemia. On admission hemoglobin was 6.4. Pt did receive 2 units of pack red blood cells by receiving dialysis. She was seen by vascular surgery who felt no intervention indicated at this time. On the morning of March 20 patient had V. fib cardiac arrest. He was shocked twice and achieve return of spontaneous circulation. Patient underwent urgent cardiac catheterization which showed patent CABG grafts, but did show severe two-vessel coronary disease with complete occlusion of the right coronary artery, LAD was subtotally occluded, circumflex had mild to moderate coronary artery disease. Patient did not have acute intervention. An echo done on the morning of March 20 showed EF of 20- 25%, biatrial enlargement, moderate mitral regurgitation, moderate tricuspid regurgitation with a linear mobile echodensity on the anterior septal leaflet of the tricuspid valve. Was also evidence of an echodensity on the right atrial device lead. Moderate pulmonary hypertension. Case was discussed with cardiology in detail. Arrangements are currently being made to transfer patient to higher level of care for definitive management. Nephrology is also following this patient and unfortunately unable to perform dialysis at this time. Patient has multiple clots noted in his right IJ line when attempt was made to transition this to a hemodialysis catheter, he has history of his right femoral pseudoaneurysm, recently underwent left heart catheterization via left femoral approach. Patient does have a left arm AV fistula, which currently is not being accessed due to hemodynamic instability and need for pressors. Patient is currently on Zosyn and vancomycin empirically, blood cultures were drawn this morning. This afternoon patient had a left femoral temporary hemodialysis catheter placed. Patient currently remains on IV amiodarone drip, propofol for sedation, IV norepinephrine for blood pressure support. Patient is doing well from a ventilatory standpoint: TV 500 FiO2 30, RR14 PEEP 5 Patient is to be transferred definitive management of tricuspid valve endocarditis as well as infected AICD wire. Family is present at bedside and we are currently working on arrangements for transfer to [facility]. - Time Spent with Patient Total time spent providing and/or coordinating discharge services: Time spent: Greater than 30 minutes (58 minutes spent on discharge and coordination of care) - Discharge Medications Prescriptions: No Action Docusate [Colace] 200 mg PO DAILY Colchicine [Colcrys] 0.6 mg PO DAILY Carvedilol [Coreg] 12.5 mg PO BID GlipiZIDE [Glucotrol] 2.5 mg PO DAILY Budesonide/Formoterol 160/4.5 [Symbicort 160/4.5] 1 puff IH BIDR Albuterol Sulfate [Proair Hfa] 2 puff IH Q6H PRN PRN Reason: Shortness Of Breath Atorvastatin [Lipitor] 20 mg PO HS #30 tablet Melatonin 5 mg PO HS PRN PRN Reason: Sleep Allopurinol [Zyloprim 100 MG] 100 mg PO DAILY Apixaban [Eliquis] 2.5 mg PO BID Folic Acid/Vit B Complex and C [Dialyvite 800 Chewable Wafer] 800 mcg PO DA ADDISON Furosemide [Lasix] 40 mg PO AD Ondansetron ODT [Zofran ODT] 4 mg PO Q6-8H PRN PRN Reason: Nausea Polyethylene Glycol 3350 [MiraLAX] 17 gm PO DAILY PRN PRN Reason: Constipation Ipratropium/Albuterol Neb [Duoneb] 3 ml IH Q6HR PRN PRN Reason: Shortness Of Breath Aspirin Enteric Coated [Aspirin EC] 81 mg PO DAILY tablet. Digoxin [Lanoxin] 0.0625 mg PO Q48H tablet Ferric Citrate [Auryxia] 420 mg PO TIDWM Calcium Acetate [Phos-LO] 1,334 mg PO TIDWM capsule Calcium Acetate [Phos-LO] 667 mg PO DAILY capsule Home Medications: Carvedilol [Coreg] 12.5 mg PO BID 05/27/18 [History] Colchicine [Colcrys] 0.6 mg PO DAILY 05/27/18 [History] Docusate [Colace] 200 mg PO DAILY 05/27/18 [History] Albuterol Sulfate [Proair Hfa] 2 puff IH Q6H PRN 07/28/18 [History] Budesonide/Formoterol 160/4.5 [Symbicort 160/4.5] 1 puff IH BIDR 07/28/18 [History] GlipiZIDE [Glucotrol] 2.5 mg PO DAILY 07/28/18 [History] Atorvastatin [Lipitor] 20 mg PO HS #30 tablet 08/12/18 [Rx] Allopurinol [Zyloprim 100 MG] 100 mg PO DAILY 02/23/19 [History] Apixaban [Eliquis] 2.5 mg PO BID 02/23/19 [History] Folic Acid/Vit B Complex and C [Dialyvite 800 Chewable Wafer] 800 mcg PO DAILY 02/23/19 [History] Furosemide [Lasix] 40 mg PO AD 02/23/19 [History] Ipratropium/Albuterol Neb [Duoneb] 3 ml IH Q6HR PRN 02/23/19 [History] Melatonin 5 mg PO HS PRN 02/23/19 [History] Ondansetron ODT [Zofran ODT] 4 mg PO Q6-8H PRN 02/23/19 [History] Polyethylene Glycol 3350 [MiraLAX] 17 gm PO DAILY PRN 02/23/19 [History] Aspirin Enteric Coated [Aspirin EC] 81 mg PO DAILY tablet. 03/01/19 [Rx] Digoxin [Lanoxin] 0.0625 mg PO Q48H tablet 03/01/19 [Rx] Ferric Citrate [Auryxia] 420 mg PO TIDWM 03/08/19 [History] Calcium Acetate [Phos-LO] 1,334 mg PO TIDWM capsule 03/09/19 [Rx] Calcium Acetate [Phos-LO] 667 mg PO DAILY capsule 03/09/19 [Rx] Allergies/Adverse Reactions: Allergy/AdvReac Type Severity Reaction Status Date / Time meperidine [From Demerol] Allergy Hives Verified 03/13/19 19:49 Date of admission: 03/16/19 08:58 [facility] care physician: [facility] Consults: 03/13/19 12:36 Consult to Nephrology [CONS] Stat Consulting Provider: Kidney Debbie/REYNOLD/AUREA/ROSY Reason for Consult: Missed dialysis Call Completed: Yes 03/13/19 12:45 Consult to Dialysis [CONS] QMWF 03/14/19 07:15 Consult to Dialysis [CONS] ONCE 03/15/19 12:45 Consult to Dialysis [CONS] QMWF 03/17/19 07:00 Consult to Dialysis [CONS] ONCE 03/17/19 10:37 Consult to Occupational Therapy [CONS] Routine Comment: Evaluate, develop and implement POC Reason for Consult: generalized weakness Does patient have active BEDREST order?: No Is patient medically & hemodynamically stable?: Yes Consult to Physical Therapy [CONS] Routine Comment: Evaluate, develop and implement POC Reason for Consult: generalized weakness Does patient have active BEDREST order?: No Is patient medically & hemodynamically stable?: Yes 03/17/19 12:45 Consult to Dialysis [CONS] QMWF 03/20/19 06:29 Consult to Cardiology [CONS] Routine Comment: Consulting Provider: Cardiology Debbie Reason for Consult: elevated troponin Call Completed: No Consult to Nephrology [CONS] Routine Consulting Provider: Kidney Crary/REYNOLD/AUREA/ROSY Reason for Consult: ESRD, acidosis, hyperkalemia Call Completed: No Consult to Nutrition [CONS] Routine Comment: Consulting Provider: NUTRITION Reason for Dietary Consult: Other Other:: Severe malnutrition. 03/20/19 06:30 Consult to Pulmonology [CONS] Routine Consulting Provider: Pulm Crit Care & Sleep Debbie Reason for Consult: Intubated post cardiac arrest Call Completed: No 03/20/19 09:28 Consult to Interventional Radiology [CONS] Routine Consulting Provider: Radiology Interventional Cols Reason for Consult: Please place temp line for HD today. Thanks Time Notified: 09:28 Call Completed: Yes Discharging clinician: Ashish Lucia Anticipated date of discharge: 03/20/19 - Constitutional Vitals: Temp Pulse Resp BP Pulse Ox 96.5 F L 50 14 117/72 100 03/20/19 12:00 03/20/19 12:00 03/20/19 12:00 03/20/19 12:00 03/20/19 12:00 General appearance: Present: no acute distress Exam: sedated and ventilated - Head Head exam: Present: atraumatic, normocephalic - Eye Eye exam: Present: PERRL, conjuntiva pink, sclera anicteric Pupils: Present: PERRL - Neck Neck exam general surgery: Present: supple, trachea midline. Absent: lymphadenopathy Additional comments: Right IJ TLC - Respiratory Respiratory exam: Present: CTAB. Absent: accessory muscle use, rales, rhonchi, wheezes - Cardiovascular Cardiovascular exam: Present: RRR, +S1, +S2. Absent: diastolic murmur, gallop, rubs, systolic murmur Additional comments: edema right groin with ecchymoses Right Arm AV fistula - no thrill palpated - Extremities Exam Extremities exam: Present: pedal edema (1+ edema), warm, radial pulses palpable and symmetrical. Absent: calf tenderness, cyanotic - Patient Status Disposition: Admitted As Inpatient Condition: Critical Functional capacity at discharge: bed bound Overall status at discharge: patient is not back to baseline - Discharge Instructions [facility] With: [facility] [Primary Care Provider] -
--- NOTE | 2019-03-20 15:18 | IR Procedure Note ---
Date of procedure: 03/20/19 Consent Obtained: Written consent Timeout: Correct patient and procedure verified, Correct site verified, Time out performed, Skin prep completed Local anesthetic: Lidocaine 1% Was there an patient support assistant present: No Estimated blood loss (cc): 0 Complications: None; Tolerated procedure well Indications: needs dialysis Procedure Performed: left femoral tempcath Site/Technique: left groin Results/Findings (any specimens removed): tip low IVC Post Procedure Treatment Plan: ok to use catheter Specimen: NA
[2019-03-20] MEDS ORDERED: Piperacillin/Tazobactam 2.25 GM in 0.9 % Sodium Chloride Mini Bag 100 ML IVPB SCH (16:00)
[2019-03-20 17:12] VITALS: BP 132/81
[2019-03-20] MEDS: Dexmedetomidine HCl 400 MCG/100 ML MLS IVC SCH (17:24)
[2019-03-20] MEDS ORDERED: Aminoglycoside Consult 1 EACH MC ONE (18:04)
--- NOTE | 2019-03-20 21:26 | Electrocardiograph Report ---
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
[2019-03-21] MEDS ORDERED: *HR* Digoxin 0.125 MG TABLET PO SCH (09:00)
[2019-03-21] MEDS ORDERED: Furosemide 40 MG TABLET PO SCH (17:00)
--- NOTE | 2019-03-23 06:12 | Electrocardiograph Report ---
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
== END 2019-03-20 18:05 | disposition home or self-care (01) | DRG 811 ==
LOC: EMEROOARM 11:12 → 2ANU 11:12 → SUATTDRO 14:14 → 2ANU 14:54 → ICNU 03-19 21:42
PROVIDERS: ADMIT Family Medicine; ATTEND Internal Medicine